=== PATIENT | male | born 1945 | race Caucasian/White ===

== ENCOUNTER 2018-01-11 11:42 | Emergency (ER) | payer OTHER, MEDICARE ==
--- OUTSIDE RECORDS SUMMARY | 2018-01-11 11:44 | XMS REPORT | Clinical Summary ---
:1945 Author Organization [facility] Address [address] [place] [address] Care Team Providers Name Role Phone Asked, No Pcp Primary Care Provider Unavailable Allergies No Known Allergies Current Medications Prescription Sig. Disp. Refills Start Date End Date Status ferrous sulfate Take 325 mg by Active 325 (65 FE) MG mouth daily as tablet needed. testosterone Inject into Active cypionate the shoulder, (DEPOTESTOTERONE thigh, or CYPIONATE) 200 buttocks 2 mg/mL injection (two) times a week. ezetimibe-simvasta Take 1 tablet 30 tablet 11 09/11/2016 Active tin (VYTORIN) by mouth 10-40 mg per nightly. tablet fenofibrate Take 1 tablet 30 tablet 09/11/2016 Active (TRICOR) 145 MG (145 mg total) tablet by mouth daily. insulin detemir Inject 30 10 mL 3 09/11/2016 Active (LEVEMIR) 100 Units under unit/mL injection the skin every morning. metoprolol Take 0.5 30 tablet 09/11/2016 Active tartrate tablets (50 mg (LOPRESSOR) 100 mg total) by tablet mouth 2 (two) times a day. omeprazole Take 1 capsule 30 capsule 11 09/11/2016 Active (PriLOSEC) 40 MG (40 mg total) capsule by mouth daily. lisinopril Take 1 tablet 30 tablet 11 02/18/2017 02/18/2018 Active (PRINIVIL,ZESTRIL) (20 mg total) 20 mg tablet by mouth daily. insulin ASPART Inject 11 10 mL 3 02/18/2017 Active (NovoLOG) 100 Units under unit/mL injection the skin 3 (three) times a day before meals. lisinopril-hydroch Take 1 tablet 30 tablet 11 09/11/2016 02/18/2017 Discontinued lorothiazide by mouth (PRINZIDE,ZESTORET daily. IC) 20-12.5 mg per tablet amLODIPine Take 1 tablet 30 tablet 11 09/11/2016 09/11/2017 (NORVASC) 10 mg (10 mg total) tablet by mouth daily. insulin ASPART Inject 13 10 mL 3 09/11/2016 02/18/2017 Discontinued (NovoLOG) 100 Units under unit/mL injection the skin 3 (three) times a day before meals. aspirin 81 mg Chew 1 tablet 30 tablet 11 09/11/2016 09/11/2017 chewable tablet (81 mg total) daily. Active Problems Problem Noted Date Iron deficiency anemia secondary to inadequate dietary iron intake 09/25/2016 Hospital discharge follow-up 09/11/2016 Altered mental status, unspecified 09/04/2016 Acute alcoholic hepatitis 09/04/2016 Hyperkalemia 09/04/2016 Lactic acidosis 09/04/2016 Alcohol abuse 09/04/2016 Acute renal failure (HCC) 09/04/2016 Type 2 diabetes mellitus with complication, with long-term current use of 06/2016 insulin (HCC) Nausea and vomiting 09/04/2016 Normocytic anemia 09/04/2016 Encounters Date Type Specialty Care Team Description 02/18/2017 Office Visit Internal Medicine Antonia Solis, Low blood pressure, not hypotension (Primary Dx); Type 2 diabetes mellitus without complication, 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 status; Stage 3 chronic kidney disease after 01/10/2017 Family History Medical History Relation Name Comments Heart disease Father Heart disease Mother Relation Name Status Comments Father Mother Social History Tobacco Use Types Packs/Day Years Used Date Current Some Day Smoker Cigarettes 1 10 Quit: 09/05/1991 Smokeless Tobacco: Current User Tobacco Cessation: Counseling Given: Yes Alcohol Use Drinks/Week oz/Week Comments Yes 10 Glasses of wine 22.2 Patient binge drinks on the 2 Cans of beer weekend, he states he has lost 25 Shots of liquor count Sex Assigned at Date Recorded Not on file Last Filed Vital Signs Vital Sign Reading Time Taken Blood Pressure 110/43 02/18/2017 3:22 PM MEDICAL STAFF COORDINATOR Pulse 70 02/18/2017 3:22 PM MEDICAL STAFF COORDINATOR Temperature 37 C (98.6 F) 02/18/2017 2:37 PM MEDICAL STAFF COORDINATOR Respiratory Rate 18 02/18/2017 2:37 PM MEDICAL STAFF COORDINATOR Oxygen Saturation 100% 02/18/2017 2:37 PM MEDICAL STAFF COORDINATOR Inhaled Oxygen Concentration - - Weight 81.6 kg (180 lb) 02/18/2017 2:37 PM MEDICAL STAFF COORDINATOR Height 205.7 cm (6' 9") 02/18/2017 2:37 PM MEDICAL STAFF COORDINATOR Body Mass Index 19.29 02/18/2017 2:37 PM MEDICAL STAFF COORDINATOR Plan of Treatment Health Maintenance Due Date Last Done Comments DIABETIC RETINAL EYE EXAM 1945 DIABETIC FOOT EXAM 1953 COLON CANCER SCREENING 1993 SHINGRIX VACCINE (#1) 1993 ZOSTER VACCINE 2003 PNEUMOCOCCAL POLYSACCHARIDE VACCINE AGE 65 AND OVER 2008 PNEUMOCOCCAL-13 2008 INFLUENZA VACCINE 10/02/2017 Procedures Procedure Name Priority Date/Time Associated Diagnosis Comments POC GLUCOSE Routine 02/18/2017 4:40 Type 2 diabetes Results for this PM MEDICAL STAFF COORDINATOR mellitus without procedure are in complication, the results unspecified long section. term insulin use status ORTHOSTATIC VITAL Routine 02/18/2017 3:25 Low blood pressure, Results for this SIGNS PM MEDICAL STAFF COORDINATOR not hypotension procedure are in the results section. HEMOGLOBIN A1C Routine 02/13/2017 10:00 Diabetes mellitus Results for this AM MEDICAL STAFF COORDINATOR due to underlying procedure are in condition with the results complication, with section. long-term current use of insulin Essential hypertension COMPREHENSIVE Routine 02/13/2017 10:00 Essential Results for this METABOLIC PANEL AM MEDICAL STAFF COORDINATOR hypertension procedure are in the results section. CBC WITH PLATELET AND Routine 02/13/2017 10:00 Essential Results for this DIFFERENTIAL AM MEDICAL STAFF COORDINATOR hypertension procedure are in the results section. after 01/10/2017 Results POC glucose (02/18/2017 4:40 PM) POC glucose 96Comment: . 65 - 100 Specimen Blood Orthostatic vital signs (02/18/2017 3:25 PM)CBC with platelet and differential (02/13/2017 10:00 AM) WBC 5.2 3.8 - 10.8 Thousand/uL [facility] [place] RBC 4.85 4.20 - 5.80 Million/uL [facility] [place] HGB 14.4 13.2 - 17.1 g/dL [facility] [place] HCT 43.1 38.5 - 50.0 % [facility] [place] MCV 88.9 80.0 - 100.0 fL [facility] [place] MCH 29.7 27.0 - 33.0 pg [facility] [place] MCHC 33.4 32.0 - 36.0 g/dL [facility] [place] RDW 13.1 11.0 - 15.0 % [facility] [place] Platelet count 172 140 - 400 Thousand/uL [facility] [place] MPV 11.3 7.5 - 12.5 fL [facility] [place] Neutrophils, absolute 3,406 1,500 - 7,800 cells/uL [facility] [place] Lymphocytes, absolute 993 850 - 3,900 cells/uL [facility] [place] Monocytes, absolute 484 200 - 950 cells/uL [facility] [place] Eosinophils, absolute 239 15 - 500 cells/uL [facility] [place] Basophils, absolute 78 0 - 200 cells/uL [facility] [place] Neutrophils 65.5 % [facility] [place] Lymphocytes 19.1 % [facility] [place] Monocytes 9.3 % [facility] [place] Eosinophils 4.6 % [facility] [place] Basophils + RC 1.5 % [facility] [place] Specimen Blood Narrative Performed At FASTING:YES [facility] FASTING: YES Other Results Text Performing Organization Information: Site ID: [id number] Name: [facility] Address: [address] [place] [id number] Director: Daniella Ortega MD Performing Organization Address [facility] [place] [facility] [address] [address] Hemoglobin A1c (02/13/2017 10:00 AM) Hemoglobin A1C 7.3 (H) <5.7 % of total [facility] Comment: Hgb [place] For someone without known diabetes, a hemoglobin A1c value of 6.5% or greater indicates that they may have diabetes and this should be confirmed with a follow-up test. For someone with known diabetes, a value <7% indicates that their diabetes is well controlled and a value greater than or equal to 7% indicates suboptimal control. A1c targets should be individualized based on duration of diabetes, age, comorbid conditions, and other considerations. Currently, no consensus exists regarding use of hemoglobin A1c for diagnosis of diabetes for children. Specimen Blood Narrative Performed At FASTING:YES [facility] FASTING: YES Other Results Text Performing Organization Information: Site ID: [id number] Name: [facility] Address: [address] [place] [id number] Director: Daniella Ortega MD Performing Organization Address [place] [place] Phone [place] [facility] [place] [address] [place] [address] Comprehensive metabolic panel (02/13/2017 10:00 AM) Glucose 76 65 - 99 mg/dL [facility] Comment: [place] Fasting reference interval BUN, whole blood 27 (H) 7 - 25 mg/dL [facility] [place] Creatinine 1.75 (H) 0.70 - 1.18 [facility] Comment: mg/dL [place] For patients >49 years of age, the reference limit for Creatinine is approximately 13% higher for people identified as -Moz[place]ican. EGFR Non-Afr. [place]ican 38 (L) > OR=60 [facility] mL/min/1.73m2 [place] EGFR 44 (L) > OR=60 [facility] mL/min/1.73m2 [place] BUN/creatinine ratio 15 6 - 22 (calc) [facility] [place] Sodium 135 135 - 146 mmol/L [facility] [place] Potassium 4.3 3.5 - 5.3 mmol/L [facility] [place] Chloride 99 98 - 110 mmol/L [facility] [place] CO2 29 20 - 31 mmol/L [facility] [place] Calcium 9.5 8.6 - 10.3 mg/dL [facility] [place] Protein 6.8 6.1 - 8.1 g/dL [facility] [place] Albumin, S 4.1 3.6 - 5.1 g/dL [facility] [place] Globulin, total 2.7 1.9 - 3.7 g/dL [facility] (calc) [place] Albumin/globulin ratio 1.5 1.0 - 2.5 (calc) [facility] [place] Total bilirubin 0.8 0.2 - 1.2 mg/dL [facility] [place] Alkaline phosphatase 99 40 - 115 U/L [facility] [place] AST 41 (H) 10 - 35 U/L [facility] [place] ALT 40 9 - 46 U/L [facility] [place] Specimen Blood Narrative Performed At FASTING:YES [facility] FASTING: YES Other Results Text Performing Organization Information: Site ID: [id number] Name: [facility] Address: [address] [place] [address] Director: Daniella Ortega MD Performing Organization Address City/State/Zipcode Phone Number [facility] [place] [address] [place] [address] after 01/10/2017 Insurance Payer Benefit Plan / Group Subscriber ID Type Phone Address MEDICARE MEDICARE PART A AND B xxxxxxxxxx Medicare [place], [place] AAR AARP SUPPLEMENT xxxxxxxxx Commercial Home: [address] [place], [place] [phone] [address]
--- OUTSIDE RECORDS SUMMARY | 2018-01-11 11:44 | XMS REPORT ---
:1945 [facility] Address [address] [place] [address] Care Team Providers Name Role Phone Unavailable Unavailable Unavailable Payers Payer Name Policy Type Policy Number Effective Date Expiration Date Problems This patient has no known problems. Allergies, Adverse Reactions, Alerts Allergy Allergy Status Severity Reaction(s) Onset Inactive Treating Comments Name Type Date Date Clinician No Known DA Active U 2017-12 Allergies -16 00:00:0 0 No Known DA Active U 2017-12 Allergies -15 00:00:0 0 No Known DA Active U 2017-10 Allergies - 00:00:0 0 Medications This patient has no known medications.
--- NOTE | 2018-01-11 12:35 | RAD REPORT ---
EXAM DESCRIPTION: CTSpine Lumbar Wo Con01/11/2018 12:10 pm CLINICAL HISTORY: Back injury with back pain and radiculopathy status post fall COMPARISON: None TECHNIQUE: Computed axial tomography lumbar spine was obtained with coronal and sagittal reconstruct ion. All CT scans are performed using dose optimization technique as appropriate and may include automated exposure control or mA/KV adjustment according to patient size. FINDINGS: No fracture is seen. No dislocation is noted. Mild posterior subluxation L2 on L3 A large left paracentral disc herniation suspected L3-4. Disc herniation extends superiorly. This in combination with ligamentum flavum and facet hypertrophy result in marked central spinal stenosis Small left lateral disc herniation L4-5 suspected IMPRESSION: Negative for a lumbar fracture. Large left paracentral disc herniation L3-4. Further evaluation with MRI recommended
[2018-01-11] MEDS ORDERED: FENTANYL CITR 100 MCG/2 ML ONE (12:53)
[2018-01-11] MEDS ORDERED: MORPHINE 4 MG/ML SYR ONE (14:06)
--- NOTE | 2018-01-11 15:16 | RAD REPORT ---
EXAM DESCRIPTION: CT - C Spine Wo Con - 01/11/2018 2:51 pm CLINICAL HISTORY: Fall yesterday with neck pain COMPARISON: None. TECHNIQUE: Computed axial tomography of the cervical spine were obtained with sagittal and coronal r econstruction images generated and reviewed. All CT scans are performed using dose optimization technique as appropriate and may include automated exposure control or mA/KV adjustment according to patient size. FINDINGS: A cervical fracture is not seen. No dislocation is noted. Mild to moderate spondylosis spondylosis involves the cervical spine Atherosclerotic calcifications involve the carotid arteries IMPRESSION: A cervical fracture is not seen. If the patient continues have symptoms to suggest spinal cord/spinal canal pathology then MRI would b e recommended.
--- NOTE | 2018-01-11 15:34 | EDPHYS ---
Physician Documentation [facility] Name: Tacho Lundy Age: 72 yrs Sex: Male : 1945 Arrival Date: 01/11/2018 Time: 11:48 Bed 14 Private MD: ED Physician Jose Ramon Alejandro HPI: 01/11 15:25 This 72 yrs old Male presents to ER via EMS with complaints of Low Back Pain, gs Fall Injury. 15:25 The patient presents with pain that is chronic. The symptoms are located in the low gs back. The problem was sustained chronic pain, spinal stenosis, fell backwards from walker states increase LBP.. Onset: The symptoms/episode began/occurred acutely, yesterday. Modifying factors: The patient symptoms are alleviated by nothing, the patient symptoms are aggravated by movement. Associated signs and symptoms: Pertinent negatives: abdominal pain, constipation, incontinence, numbness, tingling, urinary retention. Severity of symptoms: At their worst the symptoms were moderate, severe, in the emergency department the symptoms are unchanged. The patient has experienced similar episodes in the past, a few times. Historical: - Allergies: : No Known Allergies; aj - Home Meds: : Viagra Oral for High Blood Pressure [Active]; Metformin Oral [Active]; Glimepiride Oral aj [Active]; - PMHx: :57 Hypertension; Chronic pain; Diabetes - NIDDM; aj - Immunization history: Last tetanus immunization: unknown. - Social history:: Smoking status: Patient/guardian denies using tobacco. - Ebola Screening: : Patient negative for fever greater than or equal to 101.5 degrees Fahrenheit, and additional compatible Ebola Virus Disease symptoms Patient denies exposure to infectious person Patient denies travel to an Ebola-affected area in the 21 days before illness onset No symptoms or risks identified at this time. ROS: 15:25 All other systems are negative. gs Exam: 15:25 Head/Face: Normocephalic, atraumatic. Eyes: Pupils equal round and reactive to light, gs extra-ocular motions intact. Lids and lashes normal. Conjunctiva and sclera are non-icteric and not injected. Cornea within normal limits. Periorbital areas with no swelling, redness, or edema. ENT: Nares patent. No nasal discharge, no septal abnormalities noted. Tympanic membranes are normal and external auditory canals are clear. Oropharynx with no redness, swelling, or masses, exudates, or evidence of obstruction, uvula midline. Mucous membranes moist. Neck: Trachea midline, no thyromegaly or masses palpated, and no cervical lymphadenopathy. Supple, full range of motion without nuchal rigidity, or vertebral point tenderness. No Meningismus. Chest/axilla: Normal chest wall appearance and motion. Nontender with no deformity. No lesions are appreciated. Cardiovascular: Regular rate and rhythm with a normal S1 and S2. No gallops, murmurs, or rubs. Normal PMI, no JVD. No pulse deficits. Respiratory: Lungs have equal breath sounds bilaterally, clear to auscultation and percussion. No rales, rhonchi or wheezes noted. No increased work of breathing, no retractions or nasal flaring. Abdomen/GI: Soft, non-tender, with normal bowel sounds. No distension or tympany. No guarding or rebound. No evidence of tenderness throughout. 15:25 Skin: Warm, dry with normal turgor. Normal color with no rashes, no lesions, and no evidence of cellulitis. MS/ Extremity: Pulses equal, no cyanosis. Neurovascular intact. Full, normal range of motion. 15:25 Constitutional: The patient appears alert, awake. 15:25 Constitutional: The patient appears uncomfortable. 15:25 Back: vertebral tenderness, is appreciated at L3 and L4. 15:25 Neuro: Cranial nerves: grossly normal, Cerebellar function: is grossly normal, Motor: moves all fours, strength is 5/5 in all extremities, Sensation: no acute changes, pin prick testing is normal, Deep tendon reflexes are 0 (absent) in the right patellar, right Achilles, left patellar and left Achilles. Vital Signs: 11:52 BP 185 / 97; Pulse 111; Resp 22; Temp 98.6; Pulse Ox 95% on R/A; Weight 81.65 kg; aj Height 5 ft. 9 in. (175.26 cm); 12:30 BP 146 / 75; Pulse 113; Resp 20; Pulse Ox 99% on R/A; aj 14:04 BP 141 / 65; Pulse 110; Resp 21; Pulse Ox 93% on R/A; aj 15:26 BP 144 / 78; Pulse 101; Resp 20; Pulse Ox 96% on R/A; aj 16:37 BP 155 / 73; Pulse 106; Resp 18; Pulse Ox 93% on R/A; aj 11:52 Body Mass Index 26.58 (81.65 kg, 175.26 cm) aj Jack Coma Score: 11:52 Eye Response: spontaneous(4). Verbal Response: oriented(5). Motor Response: obeys aj commands(6). Total: 15. Trauma Score (Adult): 11:52 Eye Response: spontaneous(1); Verbal Response: oriented(1); Motor Response: obeys aj commands(2); Systolic BP: > 89 mm Hg(4); Respiratory Rate: 10 to 29 per min(4); Jack Score: 15; Trauma Score: 12 MDM: 12:00 Patient medically screened. 15:25 Differential diagnosis: fracture, Herniated disc annular tear, chronic pain. Data gs reviewed: vital signs, nurses notes. ED course: spoke with pt dr suggests transfer to [facility] if pain persists and cant ambulate. presented recc to pt. states doesn't want to be transferred. says will go home see pcp saturday.. 01/11 15:47 Order name: CBC with Diff; Complete Time: 16:40 01/11 15:47 Order name: Basic Metabolic Panel; Complete Time: 16:46 01/11 12:00 Order name: CT Lumbar Spine Wo Con; Complete Time: 12:59 01/11 14:19 Order name: CT C Spine; Complete Time: 15:16 gs Administered Medications: 12:53 Drug: fentaNYL (PF) 50 mcg Route: IVP; Site: right forearm; aj 15:59 Follow up: Response: Pain is unchanged, physician notified aj 14:01 Drug: morphine 4 mg Route: IVP; Site: left antecubital; aj 16:00 Follow up: Response: Pain is decreased aj 15:59 Drug: Quincy 10 mg-325 mg 1 tabs Route: PO; aj 16:00 Follow up: Response: Pain is decreased aj 16:53 Drug: NS 0.9% 1000 ml Route: IV; Rate: 1 bolus; Site: left forearm; aj 18:12 Follow up: Response: No adverse reaction; IV Status: Completed infusion; IV Intake: aj 1000ml 16:54 Drug: TORadol 15 mg Route: IVP; Site: left forearm; aj 18:12 Follow up: Response: Pain is decreased Point of Care Testing: Blood Glucose: 14:29 Blood Glucose: 175 mg/dL; aj Ranges: Critical Glucose Levels:Adult <50 mg/dl or >400 mg/dl <40 mg/dl or >180 mg/dl Disposition: 01/11/18 17:31 Discharged to Home. Impression: Intervertebral disc disorders with radiculopathy, lumbar region. - Condition is Stable. - Discharge Instructions: Herniated Disk, Dehydration, Adult, [id number]. - Medication Reconciliation Form, Thank You Letter, Antibiotic Education, Prescription Opioid Use form. - Follow up: Private Physician; When: 2 - 3 days; Reason: Re-evaluation by your physician. Signatures: Dispatcher [employer] Yi Porter RN RN aj Starr, Gregory, MD MD gs Corrections: (The following items were deleted from the chart) 15:51 15:33 01/11/2018 15:33 Discharged to Home. Impression: Intervertebral disc disorders with radiculopathy, lumbar region. Condition is Stable. Forms are Medication Reconciliation Form, Thank You Letter, Antibiotic Education, Prescription Opioid Use. Follow up: Private Physician; When: 2 - 3 days; Reason: Re-evaluation by your physician. 18:13 17:31 01/11/2018 17:31 Discharged to Home. Impression: Intervertebral disc disorders with radiculopathy, lumbar region. Condition is Stable. Prescriptions for Valium 5 mg Oral Tablet - take 1 tablet by ORAL route every 12 hours As needed; 10 tablet. and Forms are Medication Reconciliation Form, Thank You Letter, Antibiotic Education, Prescription Opioid Use. Follow up: Private Physician; When: 2 - 3 days; Reason: Re-evaluation by your physician.
--- NOTE | 2018-01-11 15:34 | ER ---
Nurse's Notes [facility] Name: Tacho Lundy Age: 72 yrs Sex: Male : 1945 Arrival Date: 01/11/2018 Time: 11:48 Bed 14 Private MD: Diagnosis: Intervertebral disc disorders with radiculopathy, lumbar region Presentation: 01/11 11:49 Presenting complaint: Patient states: Fell from standing position yesterday at 1700 aj after tripping while using walker. Reports severe pain to lower back that was partly relieved with Tylenol #3 last night, but was not completely controlled. Denies numbness or tingling. CMS intact to BLE. Patient reports HX of chronic back pain. Care prior to arrival: IV initiated. 22 GA, in the left antecubital area. Mechanism of Injury: Fall from standing position. Trauma event details: Injury occurred in the [facility], Injury occurred: at home. Injury occurred: January 10, 2018 Injury occurred at: 17:00. 11:49 Acuity: CORRY 2 aj 11:49 Method Of Arrival: EMS: [facility] aj 11:55 Transition of care: patient was not received from another setting of care. Onset of aj symptoms was January 10, 2018 at 17:00. Risk Assessment: Do you want to hurt yourself or someone else? Patient reports no desire to harm self or others. Initial Sepsis Screen: Does the patient meet any 2 criteria? No. Patient's initial sepsis screen is negative. Does the patient have a suspected source of infection? No. Patient's initial sepsis screen is negative. Trauma Activation: Alert Physician: ED Physician; Name: ; Notified At: ; Arrived At: Physician: General Surgeon; Name: ; Notified At: ; Arrived At: Physician: Radiology; Name: ; Notified At: ; Arrived At: Physician: Respiratory; Name: ; Notified At: ; Arrived At: Physician: Lab; Name: ; Notified At: ; Arrived At: Historical: - Allergies: : No Known Allergies; aj - Home Meds: : Viagra Oral for High Blood Pressure [Active]; Metformin Oral [Active]; Glimepiride Oral aj [Active]; - PMHx: 11:57 Hypertension; Chronic pain; Diabetes - NIDDM; aj - Immunization history: Last tetanus immunization: unknown. - Social history:: Smoking status: Patient/guardian denies using tobacco. - Ebola Screening: : Patient negative for fever greater than or equal to 101.5 degrees Fahrenheit, and additional compatible Ebola Virus Disease symptoms Patient denies exposure to infectious person Patient denies travel to an Ebola-affected area in the 21 days before illness onset No symptoms or risks identified at this time. Screenin:52 Abuse screen: Denies threats or abuse. Denies injuries from another. Tuberculosis aj screening: No symptoms or risk factors identified. 18:10 Nutritional screening: No deficits noted. Fall Risk Gait- Weak (10 pts.). aj Primary Survey: 11:52 A: Airway: patent. Breathing/Chest: Respiratory pattern: regular, Respiratory effort: aj spontaneous, unlabored, Breath sounds: clear, bilaterally. Chest inspection: symmetrical rise and fall of the chest. Circulation: Skin color: pink. Disability Alert. 12:47 Reassessment Airway Airway Patent Breathing/Chest Respiratory pattern Regular aj Respiratory effort Spontaneous Unlabored Circulation Color White Stone Temperature Warm Diaphoretic Disability Alert. Assessment: 11:52 General: Appears in no apparent distress. uncomfortable, Behavior is cooperative, aj appropriate for age. Pain: Complains of pain in lumbar area and low back area Pain currently is 9 out of 10 on a pain scale. Neuro: Level of Consciousness is awake, alert, obeys commands, Oriented to person, place, time, situation, Appropriate for age Moves all extremities. Intact. Respiratory: Airway is patent Respiratory effort is even, unlabored. Derm: Skin is intact, is healthy with good turgor, Skin is pink, warm \\T\\ dry. normal. Musculoskeletal: Reports pain in lumbar area and low back area. 14:02 Reassessment: No changes from previously documented assessment. Patient and/or family aj updated on plan of care and expected duration. Pain level reassessed. Patient is alert, oriented x 3, equal unlabored respirations, skin warm/dry/pink. Attempted to ambulate patient per Dr Alejandro's order. Patient able to stand and bear weight but was in excruciating pain. Requested ice chips for dry mouth and pain medication. 15:26 Reassessment: Patient appears in no apparent distress at this time. Patient and/or aj family updated on plan of care and expected duration. Pain level reassessed. Patient is alert, oriented x 3, equal unlabored respirations, skin warm/dry/pink. Patient reported to Dr Alejandro that he would like to go home but would like [place] Patient states feeling better. Patient states symptoms have improved. 16:36 Reassessment: Patient appears in no apparent distress at this time. Patient and/or aj family updated on plan of care and expected duration. Pain level reassessed. Patient is alert, oriented x 3, equal unlabored respirations, skin warm/dry/pink. Patient states that he wants to be discharged and will refuse transfer. Patient states "I'll even sign a piece of paper if I need to." Patient states feeling better. Patient states symptoms have improved. 18:09 Reassessment: Patient appears in no apparent distress at this time. Patient and/or aj family updated on plan of care and expected duration. Pain level reassessed. Patient is alert, oriented x 3, equal unlabored respirations, skin warm/dry/pink. Patient reports significant improvement after toradol. Able to stand and pivot into chair with less pain. Patient states feeling better. Patient states symptoms have improved. Vital Signs: 11:52 BP 185 / 97; Pulse 111; Resp 22; Temp 98.6; Pulse Ox 95% on R/A; Weight 81.65 kg; aj Height 5 ft. 9 in. (175.26 cm); 12:30 BP 146 / 75; Pulse 113; Resp 20; Pulse Ox 99% on R/A; aj 14:04 BP 141 / 65; Pulse 110; Resp 21; Pulse Ox 93% on R/A; aj 15:26 BP 144 / 78; Pulse 101; Resp 20; Pulse Ox 96% on R/A; aj 16:37 BP 155 / 73; Pulse 106; Resp 18; Pulse Ox 93% on R/A; aj 11:52 Body Mass Index 26.58 (81.65 kg, 175.26 cm) aj Creighton Coma Score: 11:52 Eye Response: spontaneous(4). Verbal Response: oriented(5). Motor Response: obeys aj commands(6). Total: 15. Trauma Score (Adult): 11:52 Eye Response: spontaneous(1); Verbal Response: oriented(1); Motor Response: obeys aj commands(2); Systolic BP: > 89 mm Hg(4); Respiratory Rate: 10 to 29 per min(4); Jack Score: 15; Trauma Score: 12 ED Course: 11:48 Patient arrived in ED. aj 11:48 Jose Ramon Alejandro MD is Attending Physician. gs 11:52 Triage completed. aj 11:52 Patient has correct armband on for positive identification. aj 11:52 Patient maintains SpO2 saturation greater than 95% on room air. aj 11:55 Thermoregulation: warm blanket given to patient. aj 11:57 Arm band placed on left wrist. Patient placed in an exam room. aj 12:07 CT completed. Patient moved to CT via stretcher. Patient moved back from CT. cw1 12:11 CT Lumbar Spine Wo Con In Process Unspecified. EDMS 12:37 Yi Locke, RN is Primary Nurse. aj 14:[address] via stretcher. cw1 14:49 CT completed. Patient moved back from CT. cw1 14:51 CT C Spine In Process Unspecified. EDMS 16:00 Lab notified patient requested butterfly stick unable to obtain blood from IV. flushes aj well. 18:10 No provider procedures requiring assistance completed. IV discontinued, intact, aj bleeding controlled, No redness/swelling at site. Pressure dressing applied. Administered Medications: 12:53 Drug: fentaNYL (PF) 50 mcg Route: IVP; Site: right forearm; aj 15:59 Follow up: Response: Pain is unchanged, physician notified aj 14:01 Drug: morphine 4 mg Route: IVP; Site: left antecubital; aj 16:00 Follow up: Response: Pain is decreased aj 15:59 Drug: [place] 10 mg-325 mg 1 tabs Route: PO; aj 16:00 Follow up: Response: Pain is decreased aj 16:53 Drug: NS 0.9% 1000 ml Route: IV; Rate: 1 bolus; Site: left forearm; aj 18:12 Follow up: Response: No adverse reaction; IV Status: Completed infusion; IV Intake: aj 1000ml 16:54 Drug: TORadol 15 mg Route: IVP; Site: left forearm; aj 18:12 Follow up: Response: Pain is decreased aj Point of Care Testing: Blood Glucose: 14:29 Blood Glucose: 175 mg/dL; aj Ranges: Intake: 18:11 PO: 300ml (Water); Total: 300ml. aj 18:12 IV: 1000ml; Total: 1300ml. aj Output: 14:00 Urine: 250ml (Voided); Total: 250ml. aj Outcome: 15:33 Discharge ordered by . gs 17:31 Discharge ordered by . gs 18:10 Discharged to home via wheelchair. aj 18:10 Condition: good 18:10 Discharge instructions given to patient, Instructed on discharge instructions, follow up and referral plans. Demonstrated understanding of instructions, follow-up care. 18:11 uncontrolled painPatient's length of stay extended due to aj 18:13 Patient left the ED. aj Signatures: Dispatcher [employer] Yi Porter RN RN aj Woodley, Crystal cw1 Jose Ramon Alejandro MD MD gs
[2018-01-11] MEDS ORDERED: HYDROCODONE/APAP 10/325 TAB ONE (15:49)
[2018-01-11] MEDS ORDERED: KETOROLAC 30 MG/ML INJ ONE (15:49)
[2018-01-11 16:28] LABS: Absolute Lymphocytes (CBC) 0.5 K/uL (0.7-4.9); Absolute Monocytes 0.8 K/uL (0.1-1.3); Absolute Neutrophil 13.1 K/uL (1.8-8.0); Basophils % 0.2 % (0-1.3); Eosinophils % 0.4 % (0-4.4); Hematocrit 37.4 % (39.6-49.0); Lymphocytes % 3.6 % (15.3-44.8); MCH 24.2 pg (27.0-35.0); MCV 75.9 fL (80-100); Monocytes % 5.7 % (3.3-12.3); RBC Red Blood Cell Count 4.93 M/uL (4.33-5.43)
[2018-01-11 16:41] LABS: Potassium 4.8 mmol/L (3.5-5.1)
[2018-01-11] MEDS ORDERED: NA CHLORIDE 0.9% 1,000 ML ONE (16:55)
[2018-01-11 18:43] VITALS: TEMP 98.6
[2018-01-11 18:47] VITALS: BP 155/73; O2SAT 93
== END 2018-01-11 18:13 | disposition home or self-care (01) ==
LOC: ER 11:42
DX: M51.16 Intervertebral disc disorders with radiculopathy, lumbar region (principal); I10 Essential (primary) hypertension; E11.9 Type 2 diabetes mellitus without complications
CPT/HCPCS: 36415; 72125; 72131; 80048; 85025; 99285; J3010; J7030; 82962

== ENCOUNTER 2018-02-05 10:04 | Inpatient (IN) | payer OTHER, MEDICARE ==
--- NOTE | 2018-02-05 13:53 | R.PREADM ---
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 ACUTE SENIOR SUSTAINABILITY CONSULTANT/DC BETO Platt [phone] REFERRING PHYSICIAN Samaria Olmstead REHAB FACILITY [facility] CLINICAL LIAISON Derick Chisholm PHYSICIAN REVIEWER Dr. Charles Sauceda M.D. MR# [id number] [id number] NAME [place] AD[address] [facility] [address]ONE [facility] [id number] DATE OF 1945 AGE 72 SSN# [id number] GENDER male MARITAL STATUS RACE white ADMIT FROM 02 - [facility] PRE-HOSPITAL LIVING SETTING 01 - Home (private home/apt. board/care, assisted living, halfway, transitional living) HOME TYPE AND DETAILS Type of home: single family house # of steps to enter the residence: 0 # of steps within the residence: 0 # of levels in the residence: 1 PRE-HOSPITAL LIVING WITH Family/Relatives FAMILY SUPPORT Yes PRIMARY FAMILY CONTACT NAME Laura Winston PRIMARY FAMILY CONTACT PHONE PHONE PRIMARY FAMILY CONTACT ON ADM.? no IS PRIMARY FAMILY CONTACT AUTH. REP.? no 1ST EMERGENCY CONTACT Laura Winston 1ST CONTACT PHONE PHONE 1ST CONTACT ON ADM. no IS 1ST CONTACT AUTH. REP.? no 2ND EMERGENCY CONTACT Suzie Kenzie 2ND CONTACT PHONE PHONE 2ND CONTACT ON ADM.? no PATIENT EMPLOYMENT STATUS Retired (for age) PATIENT EMPLOYER No Employer PAYOR INFORMATION: 1ST PAYOR NAME Medicare 1ST PAYOR PHONE 1ST PAYOR INJURY/ILLNESS DUE TO ACCIDENT? No ANOTHER [employer] RESPONSIBLE? No PRIMARY REHAB/ACUTE DIAGNOSIS: herniated nucleus pulposus ONSET DATE 01-20-2018 REHAB IMPAIRMENT CATEGORY (RADHA): 05 Nontraumatic spinal cord injury (NTSCI) MEETS 60% rule PRIMARY DIAGNOSIS-RELATED SURGERIES: Laminectomy of L3-L4 COMORBID REHAB/ACUTE DIAGNOSES: - Non-Tiered hypertension - N/A arthritis ckd stage III CAD s/p stent INTERVENTIONS: - Hypertension Fluid management Medications VS RISK FOR COMPLICATIONS: - Hypertension CVA Hypotension VA TIA SUMMARY OF ACUTE HOSPITALIZATION: Pt. is a 72 yo Right-handed white male. On 01-20-2018 he was admitted to [facility] with diagnosis herniated nucleus pulposus. His impairment category is Spinal Cord Dysfunction 04 - Other Non-traumatic Spinal Cord Dysfunction (04.130). Pre-morbidly, Pt. was independent/mod-I in Transfers Control, Communication, Social Cognition, Self-C are, Sphincter Control, and Locomotion; and he had good Sphincter Control. Currently, he has deficits of Safety Awareness, Transfers Control, Communication, Social Cognition, B alance, Endurance, Locomotion, and Self-Care. Pt. is now referred to [facility] for acute in-patient rehabilitation in order to maximize patient's functional independence in activities of daily living, strength, ROM, and mobi lity. Patient has realistic goal of being discharged at assistance level 6-Leslie to reside at Home with Fam sania/Relatives. PAST MEDICAL HISTORY CAD s/p stent arthritis ckd stage III hypertension MEDICATION ALLERGIES: No Known Drug Allergies (NKDA) ENVIRONMENTAL ALLERGIES: - Substance Allergies None Known - Other Allergies None Known CODE STATUS: Full code WEIGHT/HEIGHT/BMI: WEIGHT 182 lbs HEIGHT 5' 9" BMI 26.9 DIET: - Diet Type Regular - Diet - Solid Texture Regular - Diet - Liquid Texture Regular - Tube Feed N/A SKIN DIAGRAM: Incision on Back; extent - small; stage - NS(Not Stageable). Treatment - Per Physician's Orders. REVIEW OF SYSTEMS: - Gen Alert and awake Lying in bed No apparent distress Oriented to: person, time, and place - Vital Signs Vital signs stable, afebrile - CVS RRR VITAL SIGNS Temperature: 99 F SBP/DBP: 118/56 Pulse: 93 Resp: 18 Vital signs stable, afebrile CURRENT SPHINCTER CONTROL: Pre-hospital bladder status: continent # of bladder accidents in the last 7 days prior to screenin Pre-hospital bowel status: continent # of bowel accidents in the last 7 days prior to screenin Last Bowel Movement Date: 02/05/2018 DETAILED CURRENT FUNCTIONAL STATUS: - Bladder accident frequency: Ind - No accidents in the past 7 days - Bowel accident frequency: Ind - No accidents in the past 7 days - Walking score based on distance walked: 1(<=50ft) FUNCTIONAL STATUS: - Self-Care A. Eating Ind Ind B. Grooming Ind sup C. Bathing Ind Ind D. Dressing - Upper Ind Dep E. Dressing - Lower Ind Dep F. Toileting Ind Dep - Sphincter Control G: Bladder control Ind Ind H: Bowel control Ind Ind - Transfers Control I. Bed/Chair/Wheelchair Ind modA J. Toilet Ind maxA K. Tub/Shower Ind maxA - Locomotion L. Walk/Wheelchair (B) Ind Dep M. Stairs Ind ADNO - Communication N. Comprehension (B) Ind sup O. Expression (B) Ind sup - Social Cognition P. Social Interaction Ind sup Q. Problem Solving Ind sup R. Memory Ind sup - Endurance Poor - Balance Poor - Safety Awareness Poor CURRENT FUNC. DEFICITS: Safety Awareness, Transfers Control, Communication, Social Cognition, Balance, Endurance, Locomotion, and Self-Care THERAPY NOTES FROM ACUTE CARE: Attached. SPECIAL NEEDS: - Safety Concerns Skin breakdown precautions needed due to skin breakdown risk PATIENT NEEDS ACTIVE AND ONGOING THERAPEUTIC INTERVENTION OF MULTIPLE THERAPY DISCIPLINES, INCLUDING: - Orthotics/Prosthetics Orthotic Evaluation. Splinting/Casting. - Occupational Therapy Evaluate and Treat. - Physical Therapy Evaluate and Treat. PATIENT NEEDS CLOSE MEDICAL SUPERVISION BY A REHABILITATION PHYSICIAN FOR: Bowel and Bladder Management Coordination of Treatment Team Medical and Co-Morbidity Management Wound Care PATIENT REQUIRES 24X7 REHAB NURSING FOR MEDICAL AND FUNCTIONAL MGT. OF THE FOLLOWING DEFICITS: ADL's Ambulation Bowel and Bladder Management Cognition Communication Disease Management Medication Management Patient/Family Education Providing Safe Environment Skin Integrity Transfers PATIENT REQUIRES INTENSIVE, COORDINATED INTERDISCIPLINARY APPROACH TO REHAB: Arranging Home Equipment/Services Discharge Planning Family Intervention/Training Cook [employer]/Case Management PATIENT REHAB POTENTIAL: Expected level of measurable improvement will be of a practical value to patient's functional capacit y or adaptations to impairments Has a viable Discharge Plan Medically appropriate; condition is sufficiently stable to participate in intensive rehab program Patient is able and expected to receive 3 hours of individualized therapy daily on at least 5 of ever y 7 days Patient's prognosis for significant practical improvement within a reasonable period of time appears Good DISCHARGE PLAN: - Estimated Length of Stay (days) 16. - Consensus on plan Discharge plan has been discussed with primary caregiver. Patient/Family is in agreement with the pili n. Primary caregiver is in agreement with the plan. - Patient/Family Goals Return home with assistance. - Planned Living Setting Upon Discharge Home, to live with Family/Relatives. RECOMMENDED CARE LEVEL: IRF RECOMMENDATION DETAILS: Recommended Admission to Comprehensive Rehabilitation Program to Increase Functional [place] SCREENER'S COMPLETENESS CONFIRMATION: - Screening Confirmation The patient data collection on this preadmission screening form is finished PHYSICIANS REVIEW AND ADMISSION DETERMINATION Admit - Based on my review of the Pre-Admission Screening results, in my medical judgment and experie nce, I concur with the findings and recommend admission to [facility], as this patient requires an IRF level of care. SIGNATURE PANEL: Clinical Liaison - [electronically] signed by Suzie Rae on 02/05/2018 at 10:53 (FARROWING WORKER) Clinical Liaison - [electronically] signed by Derick Chisholm on 02/05/2018 at 11:19 (FARROWING WORKER) Physician Reviewer - [electronically] signed by Dr. Charles Sauceda M.D. on 02/05/2018 at 13:52 (FARROWING WORKER )
--- OUTSIDE RECORDS SUMMARY | 2018-02-05 19:22 | XMS REPORT | Clinical Summary ---
:1945 Author Organization [facility] Address [address] [place] [address] Care Team Providers Name Role Phone Asked, No Pcp Primary Care Provider Unavailable Allergies No Known Allergies Medications Medication Sig Dispensed Refills Start Date End Date Status gabapentin Take 1 capsule 90 capsule 0 02/05/2018 Active (NEURONTIN) 100 mg (100 mg total) 9 capsule by mouth 3 (three) times a day for 30 days. ezetimibe-simvasta Take 1 tablet by 30 tablet 0 02/05/2018 Active tin (VYTORIN) mouth nightly 9 10-40 mg per for 30 days. tablet tamsulosin Take 1 capsule 30 capsule 0 02/06/2018 Active (FLOMAX) 0.4 mg (0.4 mg total) 9 capsule by mouth daily for 30 days. metoprolol Take 1 tablet 30 tablet 0 02/06/2018 Active succinate XL (25 mg total) by 9 (TOPROL-XL) 25 mg mouth daily for 24 hr tablet 30 days. NIFEdipine XL Take 1 tablet 30 tablet 0 02/06/2018 Active (PROCARDIA XL) 30 (30 mg total) by 9 MG 24 hr tablet mouth daily for 30 days. heparin Inject 1 mL 60 mL 0 02/05/2018 Active sodium,porcine (5,000 Units 9 (HEPARIN, total) under the PORCINE,) 5,000 skin every 12 unit/mL injection (twelve) hours for 30 days. insulin GLARGINE Inject 50 Units 15 mL 0 02/06/2018 Active (LANTUS) 100 under the skin 9 unit/mL injection daily before (vial) breakfast for 30 days. insulin lispro Inject 0-12 10 mL 12 02/05/2018 Active (HumaLOG) 100 Units under the 9 unit/mL injection skin 3 (three) times a day with meals for 30 days. furosemide (LASIX) Take 1 tablet 30 tablet 0 02/06/2018 Active 20 mg tablet (20 mg total) by 9 mouth daily for 30 days. magnesium oxide Take 1 tablet 60 tablet 0 02/05/2018 Active (MAG-OX) 400 mg (400 mg total) 9 (241.3 mg by mouth 2 (two) magnesium) tablet times a day for 30 days. aspirin (ECOTRIN) Take 1 tablet 30 tablet 0 02/05/2018 Active 81 MG enteric (81 mg total) by 9 coated tablet mouth daily for 30 days. pantoprazole Take 1 tablet 30 tablet 0 02/06/2018 Active (PROTONIX) 40 MG (40 mg total) by 9 EC tablet mouth daily for 30 days. ferrous sulfate Take 325 mg by 0 Discontinued 325 (65 FE) MG mouth daily as 8 tablet needed. testosterone Inject into the 0 Discontinued cypionate shoulder, thigh, 8 (DEPOTESTOTERONE or buttocks 2 CYPIONATE) 200 (two) times a mg/mL injection week. lisinopril-hydroch Take 1 tablet by 30 tablet 11 09/11/2016 Discontinued lorothiazide mouth daily. 7 (PRINZIDE,ZESTORET IC) 20-12.5 mg per tablet amLODIPine Take 1 tablet 30 tablet 09/11/2016 (NORVASC) 10 mg (10 mg total) by 8 tablet mouth daily. ezetimibe-simvasta Take 1 tablet by 30 tablet 11 09/11/2016 Discontinued tin (VYTORIN) mouth nightly. 8 10-40 mg per tablet fenofibrate Take 1 tablet 30 tablet 11 09/11/2016 Discontinued (TRICOR) 145 MG (145 mg total) 8 tablet by mouth daily. insulin detemir Inject 30 Units 10 mL 3 09/11/2016 Discontinued (LEVEMIR) 100 under the skin 8 unit/mL injection every morning. insulin ASPART Inject 13 Units 10 mL 3 09/11/2016 Discontinued (NovoLOG) 100 under the skin 3 7 unit/mL injection (three) times a day before meals. metoprolol Take 0.5 tablets 30 tablet 11 09/11/2016 Discontinued tartrate (50 mg total) by 8 (LOPRESSOR) 100 mg mouth 2 (two) tablet times a day. omeprazole Take 1 capsule 30 capsule 11 09/11/2016 Discontinued (PriLOSEC) 40 MG (40 mg total) by 8 capsule mouth daily. aspirin 81 mg Chew 1 tablet 30 tablet 11 09/11/2016 chewable tablet (81 mg total) 8 daily. lisinopril Take 1 tablet 30 tablet 11 02/18/2017 Discontinued (PRINIVIL,ZESTRIL) (20 mg total) by 8 20 mg tablet mouth daily. insulin ASPART Inject 11 Units 10 mL 3 02/18/2017 Discontinued (NovoLOG) 100 under the skin 3 8 unit/mL injection (three) times a day before meals. acetaminophen-code TK 1 T PO BID 0 01/10/2018 Discontinued ine (TYLENOL WITH PRF PAIN 8 CODEINE #3) 300-30 mg per tablet gabapentin Take 300 mg by 0 01/08/2018 Discontinued (NEURONTIN) 300 mg mouth 3 (three) 8 capsule times a day. traMADol (ULTRAM) Take 1 tablet by 0 01/10/2018 Discontinued 50 mg tablet mouth 3 (three) 8 times a day as needed. acetaminophen-code Take 1 tablet by 0 Discontinued ine (TYLENOL WITH mouth 2 (two) 8 CODEINE #4) 300-60 times a day as mg per tablet needed for moderate pain. ezetimibe-simvasta Take 1 tablet by 0 Discontinued tin (VYTORIN) mouth nightly. 8 10-40 mg per tablet gabapentin Take 300 mg by 0 Discontinued (NEURONTIN) 300 mg mouth 3 (three) 8 capsule times a day. insulin ASPART Inject 5 Units 0 Discontinued (NovoLOG) 100 under the skin 3 8 unit/mL injection (three) times a day before meals. insulin detemir Inject 70 Units 0 Discontinued U-100 (LEVEMIR) under the skin 8 100 unit/mL every morning. injection insulin detemir Inject 30 Units 0 Discontinued U-100 (LEVEMIR) under the skin 8 100 unit/mL every evening. injection lisinopril Take 20 mg by 0 Discontinued (PRINIVIL,ZESTRIL) mouth daily. 8 20 mg tablet (Patient was not sure if he takes this medication at home) metoprolol Take 50 mg by 0 Discontinued tartrate mouth 2 (two) 8 (LOPRESSOR) 100 mg times a day. tablet (Patient was not sure if he takes this medication at home) testosterone Inject 200 mg 0 Discontinued cypionate into the 8 (DEPOTESTOTERONE shoulder, thigh, CYPIONATE) 200 or buttocks 2 mg/mL injection (two) times a week. (Saturday & Saturday) traMADol (ULTRAM) Take 50 mg by 0 Discontinued 50 mg tablet mouth 3 (three) 8 times a day as needed for moderate pain. pantoprazole Take 40 mg by 0 Discontinued (PROTONIX) 40 MG mouth 2 (two) 8 EC tablet times a day. sildenafil Take 100 mg by 0 Discontinued (VIAGRA) 100 MG mouth daily as 8 tablet needed for erectile dysfunction (1 hour before intercourse). Active Problems Problem Noted Date Leg weakness, bilateral 01/20/2018 Iron deficiency anemia secondary to inadequate dietary iron intake 09/25/2016 Hospital discharge follow-up 09/11/2016 Altered mental status, unspecified 09/04/2016 Acute alcoholic hepatitis 09/04/2016 Hyperkalemia 09/04/2016 Lactic acidosis 09/04/2016 Alcohol abuse 09/04/2016 Acute renal failure 09/04/2016 Type 2 diabetes mellitus with complication, with long-term current use of 06/2016 insulin Nausea and vomiting 09/04/2016 Normocytic anemia 09/04/2016 Encounters Date Type Specialty Care Team Description 01/31/2018 Anesthesia Event General Surgery Luisa Diamond CRNA 01/31/2018 Surgery General Surgery Thomas Covarrubias MD [id number] LAMINECTOMY AND DISCECTOMY 01/30/2018 Anesthesia Event Radiology Catina Gage MD 01/28/2018 Surgery Procedural Nemesio Buck Left heart cath w Cardiology MD brigitte Mccray [[id number] (CPT)] 01/23/2018 Orders Only Procedural [facility] Aby Og 01/20/2018 - Hospital Encounter General Internal Catina Oreilly Leg weakness, bilateral (Primary Dx); 02/05/2018 Medicine MD Kaylee Hyperkalemia; Kun Olmos MD Hyperglycemia; Back pain, lumbosacral; Secondary hypertension 01/11/2018 Intake Access N/A 02/18/2017 Office Visit Internal Medicine Antonia Solis, Low blood pressure, not hypotension (Primary Dx); Type 2 diabetes mellitus without complication, unspecified terminal carman insulin use status; Stage 3 chronic kidney disease after 02/04/2017 Family History Medical History Relation Name Comments Heart disease Father Heart disease Mother Relation Name Status Comments Father Mother Social History Tobacco Use Types Packs/Day Years Used Date Current Some Day Smoker Cigarettes 1 10 Quit: 09/05/1991 Smokeless Tobacco: Current User Tobacco Cessation: Counseling Given: Yes Alcohol Use Drinks/Week oz/Week Comments Yes 3 Shots of liquor 1.8 3 week Sex Assigned at Date Recorded Not on file Job Start Date Occupation Industry Not on file Not on file Not on file Travel History Travel Start Travel End No recent travel history available. Last Filed Vital Signs Vital Sign Reading Time Taken Blood Pressure 126/53 02/05/2018 2:55 [facility] Pulse 52 02/05/2018 2:55 [facility] Temperature 36.5 C (97.7 F) 02/05/2018 11:16 [facility] Respiratory Rate 18 02/05/2018 2:55 [facility] Oxygen Saturation 96% 02/05/2018 2:55 [facility] Inhaled Oxygen Concentration - - Weight 81 kg (178 lb 9 oz) 02/05/2018 6:00 [facility] Height 175.3 cm (5' 9") 01/31/2018 3:17 [facility] Body Mass Index 26.37 02/05/2018 6:00 [facility] Plan of Treatment Health Maintenance Due Date Last Done Comments DIABETIC RETINAL EYE EXAM 1945 DIABETIC FOOT EXAM 1953 COLON CANCER SCREENING 1993 SHINGRIX VACCINE (1 of 2) 1993 ZOSTER VACCINE 2003 PNEUMOCOCCAL POLYSACCHARIDE VACCINE AGE 65 AND OVER 2008 PNEUMOCOCCAL-13 2008 INFLUENZA VACCINE 10/02/2017 Implants Explanted Type Area Shipwright Supervisor Device Identifier Shelf Expiration Model / Serial Date / Lot Kamron / / [id number] Procedures Procedure Name Priority Date/Time Associated Comments Diagnosis ECG 12-LEAD Routine 02/05/2018 12:57 Results for this [facility] procedure are in the results section. POC GLUCOSE Routine 02/05/2018 10:56 Results for this [facility] procedure are in the results section. POC GLUCOSE Routine 02/05/2018 7:53 Results for this [facility] procedure are in the results section. POC GLUCOSE Routine 02/05/2018 5:07 Results for this [facility] procedure are in the results section. VITAMIN D 25 HYDROXY Routine 02/05/2018 3:10 Results for this LEVEL [facility] procedure are in the results section. POC GLUCOSE Routine 02/05/2018 1:17 Results for this [facility] procedure are in the results section. POC GLUCOSE Routine 02/04/2018 9:20 Results for this [facility] procedure are in the results section. POC GLUCOSE Routine 02/04/2018 6:00 Results for this [facility] procedure are in the results section. POC GLUCOSE Routine 02/04/2018 12:16 Results for this [facility] procedure are in the results section. POC GLUCOSE Routine 02/04/2018 8:34 Results for this [facility] procedure are in the results section. POC GLUCOSE Routine 02/03/2018 9:47 Results for this [facility] procedure are in the results section. POC GLUCOSE Routine 02/03/2018 4:41 Results for this [facility] procedure are in the results section. POC GLUCOSE Routine 02/03/2018 12:13 Results for this [facility] procedure are in the results section. POC GLUCOSE Routine 02/03/2018 8:12 Results for this [facility] procedure are in the results section. ECG 12-LEAD STAT 02/02/2018 9:13 [facility] POC GLUCOSE Routine 02/02/2018 8:39 Results for this [facility] procedure are in the results section. TROPONIN STAT 02/02/2018 7:22 Results for this [facility] procedure are in the results section. ESTIMATED GFR STAT 02/02/2018 7:22 Results for this [facility] procedure are in the results section. PHOSPHORUS LEVEL STAT 02/02/2018 7:22 Results for this [facility] procedure are in the results section. LACTIC ACID LEVEL STAT 02/02/2018 7:22 Results for this [facility] procedure are in the results section. MAGNESIUM LEVEL STAT 02/02/2018 7:22 Results for this [facility] procedure are in the results section. COMPREHENSIVE STAT 02/02/2018 7:22 Results for this METABOLIC PANEL [facility] procedure are in the results section. POC GLUCOSE Routine 02/02/2018 4:47 Results for this [facility] procedure are in the results section. POC GLUCOSE Routine 02/02/2018 12:13 Results for this [facility] procedure are in the results section. POC GLUCOSE Routine 02/02/2018 12:04 Results for this [facility] procedure are in the results section. POC GLUCOSE Routine 02/02/2018 7:44 Results for this [facility] procedure are in the results section. POC GLUCOSE Routine 02/02/2018 4:02 Results for this [facility] procedure are in the results section. POC GLUCOSE Routine 02/01/2018 9:00 Results for this [facility] procedure are in the results section. POC GLUCOSE Routine 02/01/2018 5:24 Results for this [facility] procedure are in the results section. POC GLUCOSE Routine 02/01/2018 12:00 Results for this [facility] procedure are in the results section. POC GLUCOSE Routine 02/01/2018 9:22 Results for this [facility] procedure are in the results section. POC GLUCOSE Routine 01/31/2018 7:46 Results for this [facility] procedure are in the results section. XR LUMBAR SPINE 1 VW Routine 01/31/2018 6:22 Results for this [facility] procedure are in the results section. SURGICAL PATHOLOGY Routine 01/31/2018 6:03 Results for this REQUEST [facility] procedure are in the results section. XR LUMBAR SPINE 1 VW Routine 01/31/2018 5:41 Results for this [facility] procedure are in the results section. XR LUMBAR SPINE 1 VW Routine 01/31/2018 4:50 Results for this [facility] procedure are in the results section. ARTERIAL LINE Routine 01/31/2018 4:32 [facility] Procedure Note - Luisa Diamond CRNA - 01/31/2018 4:32 [facility] Arterial line Performed by: Luisa Diamond CRNA Authorized by: Xavier Contreras II, MD Start Time: 01/31/2018 4:12 PM End Time: 01/31/2018 4:12 PM Staff: Performed by: Anesthesiologist Pre-procedure: patient identified, IV checked, site and side verified, risks and benefits discussed, procedure verified, surgical consent complete, patient position confirmed, monitors and equipment checked and pre-op evaluation complete MSBT: antiseptic used, all elements of maximal sterile barrier technique followed, hand hygiene performed and cap/gown used by other personnel Indications: Indications: hemodynamic monitoring Anesthesia: Anesthesia: Local infiltration Procedure Details: Arterial Line placement: Placed pre-induction Line placement site: Radial Line placement side: Left Arterial line gauge: 20 G Number of attempts: 1 Ultrasound guidance used: No Post-procedure: Post-procedure: Sterile dressing applied Post procedure circulation, sensation, movement: Normal Patient tolerance: Patient tolerated the procedure well with no immediate complications MN AN ELECTIVE ENDOTRACHEAL AIRWAY Routine 01/31/2018 4:30 [facility] Procedure Note - Luisa Diamond CRNA - 01/31/2018 4:30 [facility] ANESTHESIA INTUBATION Date/Time: 01/31/2018 4:30 PM Performed by: Luisa Diamond CRNA Authorized by: Xavier Contreras II, MD Location: OR Urgency: Elective Difficult Airway: No Performed by: resident/LACE PINNER/AA Preoxygenated with 100% O2: Yes C-spine Precautions Maintained Throughout: Yes Mask Ventilation: Easy mask Final Airway Type: Endotracheal airway Final Endotracheal Airway: ETT Cuffed: Yes Technique Used: Video laryngoscopy Devices/Methods Used in Placement: Intubating stylet Insertion Site: Oral Blade Type: Linda Laryngoscope Blade/Videolaryngoscope Blade Size: 4 ETT Size (mm): 8.0 Cuff at minimum occlusion pressure: Yes Measured from: Lips ETT to Lips (cm): 22 Placement Verified by: CO2 detection, direct visualization and equal breath sounds Laryngoscopic view: Grade I - full view of glottis Rapid Sequence Induction (RSI): No Modified RSI: No Number of Attempts at Approach: 1 POC GLUCOSE Routine 01/31/2018 3:10 Results for this [facility] procedure are in the results section. LAMINECTOMY, LUMBAR 01/31/2018 3:05 lucas [facility] POC GLUCOSE Routine 01/31/2018 2:09 Results for this [facility] procedure are in the results section. POC GLUCOSE Routine 01/31/2018 8:14 Results for this [facility] procedure are in the results section. POC GLUCOSE Routine 01/31/2018 5:05 Results for this [facility] procedure are in the results section. ESTIMATED GFR Routine 01/31/2018 4:00 Results for this [facility] procedure are in the results section. HC COMPLETE BLD COUNT Routine 01/31/2018 4:00 Results for this W/AUTO DIFF [facility] procedure are in the results section. BASIC METABOLIC PANEL Routine 01/31/2018 4:00 Results for this [facility] procedure are in the results section. TYPE AND SCREEN Routine 01/31/2018 12:29 Results for this [facility] procedure are in the results section. XR CHEST 1 VW PORTABLE STAT 01/30/2018 10:33 Results for this [facility] procedure are in the results section. POC GLUCOSE Routine 01/30/2018 9:56 Results for this [facility] procedure are in the results section. POC GLUCOSE Routine 01/30/2018 6:52 Results for this [facility] procedure are in the results section. PROTHROMBIN TIME WITH Routine 01/30/2018 1:30 Results for this INR [facility] procedure are in the results section. POC GLUCOSE Routine 01/30/2018 10:47 Results for this [facility] procedure are in the results section. POC GLUCOSE Routine 01/30/2018 8:58 Results for this [facility] procedure are in the results section. MRI LUMBAR SPINE W WO Routine 01/30/2018 8:31 Results for this CONTRAST [facility] procedure are in the results section. POC GLUCOSE Routine 01/30/2018 7:36 Results for this [facility] procedure are in the results section. ESTIMATED GFR Routine 01/30/2018 5:00 Results for this [facility] procedure are in the results section. HC COMPLETE BLD COUNT Routine 01/30/2018 5:00 Results for this W/AUTO DIFF [facility] procedure are in the results section. BASIC METABOLIC PANEL Routine 01/30/2018 5:00 Results for this [facility] procedure are in the results section. POC GLUCOSE Routine 01/29/2018 9:16 Results for this [facility] procedure are in the results section. POC GLUCOSE Routine 01/29/2018 5:15 Results for this [facility] procedure are in the results section. POC GLUCOSE Routine 01/29/2018 12:46 Results for this [facility] procedure are in the results section. POC GLUCOSE Routine 01/29/2018 8:11 Results for this [facility] procedure are in the results section. ESTIMATED GFR Routine 01/29/2018 4:55 Results for this [facility] procedure are in the results section. PHOSPHORUS LEVEL Routine 01/29/2018 4:55 Results for this [facility] procedure are in the results section. MAGNESIUM LEVEL Routine 01/29/2018 4:55 Results for this [facility] procedure are in the results section. BASIC METABOLIC PANEL Routine 01/29/2018 4:55 Results for this [facility] procedure are in the results section. HC COMPLETE BLD COUNT Routine 01/29/2018 4:55 Results for this W/AUTO DIFF [facility] procedure are in the results section. POC GLUCOSE Routine 01/28/2018 9:15 Results for this [facility] procedure are in the results section. POC GLUCOSE Routine 01/28/2018 5:45 Results for this [facility] procedure are in the results section. POC GLUCOSE Routine 01/28/2018 12:35 Results for this [facility] procedure are in the results section. POC GLUCOSE Routine 01/28/2018 9:30 Results for this [facility] procedure are in the results section. POC GLUCOSE Routine 01/28/2018 8:11 Results for this [facility] procedure are in the results section. CV BYPASS GRAFT LEFT Routine 01/28/2018 7:46 Results for this HEART [facility] procedure are in the results section. CV SELECTIVE CORONARY Routine 01/28/2018 7:46 Results for this ANGIOGRAPHY [facility] procedure are in the results section. CV LEFT HEART CATH LV Routine 01/28/2018 7:46 Results for this GRAM WITH CORS [facility] procedure are in the results section. POC GLUCOSE Routine 01/28/2018 4:49 Results for this [facility] procedure are in the results section. HC COMPLETE BLD COUNT Routine 01/28/2018 4:45 Results for this W/AUTO DIFF [facility] procedure are in the results section. ESTIMATED GFR Routine 01/28/2018 4:00 Results for this [facility] procedure are in the results section. BASIC METABOLIC PANEL Routine 01/28/2018 4:00 Results for this [facility] procedure are in the results section. POC GLUCOSE Routine 01/27/2018 8:57 Results for this [facility] procedure are in the results section. POC GLUCOSE Routine 01/27/2018 5:47 Results for this [facility] procedure are in the results section. POC GLUCOSE Routine 01/27/2018 12:48 Results for this [facility] procedure are in the results section. POC GLUCOSE Routine 01/27/2018 10:21 Results for this [facility] procedure are in the results section. POC GLUCOSE Routine 01/27/2018 8:20 Results for this [facility] procedure are in the results section. POC GLUCOSE Routine 01/26/2018 5:55 Results for this [facility] procedure are in the results section. POC GLUCOSE Routine 01/26/2018 4:33 Results for this [facility] procedure are in the results section. POC GLUCOSE Routine 01/26/2018 12:21 Results for this [facility] procedure are in the results section. POC GLUCOSE Routine 01/26/2018 8:04 Results for this [facility] procedure are in the results section. POC GLUCOSE Routine 01/25/2018 9:05 Results for this [facility] procedure are in the results section. POC GLUCOSE Routine 01/25/2018 5:21 Results for this [facility] procedure are in the results section. POC GLUCOSE Routine 01/25/2018 2:07 Results for this [facility] procedure are in the results section. POC GLUCOSE Routine 01/25/2018 12:42 Results for this [facility] procedure are in the results section. POC GLUCOSE Routine 01/25/2018 8:10 Results for this [facility] procedure are in the results section. ESTIMATED GFR Routine 01/25/2018 4:00 Results for this [facility] procedure are in the results section. BASIC METABOLIC PANEL Routine 01/25/2018 4:00 Results for this [facility] procedure are in the results section. HC COMPLETE BLD COUNT Routine 01/25/2018 4:00 Results for this W/AUTO DIFF [facility] procedure are in the results section. POC GLUCOSE Routine 01/24/2018 9:13 Results for this [facility] procedure are in the results section. POC GLUCOSE Routine 01/24/2018 4:20 Results for this PM [facility] [facility] procedure are in the results section. POC GLUCOSE Routine 01/24/2018 4:06 Results for this [facility] procedure are in the results section. POC GLUCOSE Routine 01/24/2018 3:03 Results for this [facility] procedure are in the results section. POC GLUCOSE Routine 01/24/2018 3:02 Results for this [facility] procedure are in the results section. POC GLUCOSE Routine 01/24/2018 8:35 Results for this [facility] procedure are in the results section. POC GLUCOSE Routine 01/24/2018 6:14 Results for this [facility] procedure are in the results section. POC GLUCOSE Routine 01/24/2018 4:56 Results for this [facility] procedure are in the results section. POC GLUCOSE Routine 01/23/2018 9:33 Results for this [facility] procedure are in the results section. POC GLUCOSE Routine 01/23/2018 6:28 Results for this [facility] procedure are in the results section. NM MYOCARDIAL Routine 01/23/2018 10:09 Results for this PERFUSION STRESS ONLY [facility] procedure are in the results section. CV STRESS TEST NUCLEAR Routine 01/23/2018 10:09 Results for this CARDIO [facility] procedure are in the results section. US CAROTID DUPLEX Routine 01/23/2018 7:35 Results for this BILATERAL [facility] procedure are in the results section. POC GLUCOSE Routine 01/23/2018 5:33 Results for this [facility] procedure are in the results section. POC GLUCOSE Routine 01/22/2018 10:38 Results for this [facility] procedure are in the results section. POC GLUCOSE Routine 01/22/2018 9:18 Results for this [facility] procedure are in the results section. POC GLUCOSE Routine 01/22/2018 5:35 Results for this [facility] procedure are in the results section. POC GLUCOSE Routine 01/22/2018 2:17 Results for this [facility] procedure are in the results section. CT LUMBAR SPINE W Routine 01/22/2018 11:43 Results for this CONTRAST [facility] procedure are in the results section. POC GLUCOSE Routine 01/22/2018 9:00 Results for this [facility] procedure are in the results section. HC COMPLETE BLD COUNT Routine 01/22/2018 5:40 Results for this W/AUTO DIFF [facility] procedure are in the results section. POC GLUCOSE Routine 01/22/2018 5:08 Results for this [facility] procedure are in the results section. ESTIMATED GFR Routine 01/22/2018 4:00 Results for this [facility] procedure are in the results section. MAGNESIUM LEVEL Routine 01/22/2018 4:00 Results for this [facility] procedure are in the results section. BASIC METABOLIC PANEL Routine 01/22/2018 4:00 Results for this [facility] procedure are in the results section. POC GLUCOSE Routine 01/21/2018 5:03 Results for this [facility] procedure are in the results section. URINALYSIS SCREEN AND STAT 01/21/2018 12:50 Results for this MICROSCOPY, WITH [facility] procedure are in REFLEX TO CULTURE the results section. URINE CULTURE STAT 01/21/2018 12:49 Results for this [facility] procedure are in the results section. POC GLUCOSE Routine 01/21/2018 12:41 Results for this [facility] procedure are in the results section. BLOOD CULTURE, AEROBIC Routine 01/21/2018 11:34 Results for this & ANAEROBIC [facility] procedure are in the results section. BLOOD CULTURE, AEROBIC Routine 01/21/2018 11:22 Results for this & ANAEROBIC [facility] procedure are in the results section. POC GLUCOSE Routine 01/21/2018 8:22 Results for this [facility] procedure are in the results section. ECHOCARDIOGRAM 2D Routine 01/21/2018 7:37 Results for this COMPLETE W MMODE [facility] procedure are in SPECTRAL COLOR DOPPLER the results (36909) section. POC GLUCOSE Routine 01/21/2018 4:21 Results for this [facility] procedure are in the results section. C-REACTIVE PROTEIN Routine 01/21/2018 4:00 Results for this [facility] procedure are in the results section. ESTIMATED GFR Routine 01/21/2018 4:00 Results for this [facility] procedure are in the results section. FOLATE RBC (GROUP Routine 01/21/2018 4:00 Results for this TEST) [facility] procedure are in the results section. VITAMIN B12 LEVEL Routine 01/21/2018 4:00 Results for this [facility] procedure are in the results section. THYROID STIMULATING Routine 01/21/2018 4:00 Results for this HORMONE [facility] procedure are in the results section. T4, FREE Routine 01/21/2018 4:00 Results for this [facility] procedure are in the results section. PHOSPHORUS LEVEL Routine 01/21/2018 4:00 Results for this [facility] procedure are in the results section. MAGNESIUM LEVEL Routine 01/21/2018 4:00 Results for this [facility] procedure are in the results section. HEMOGLOBIN A1C Routine 01/21/2018 4:00 Results for this [facility] procedure are in the results section. COMPREHENSIVE Routine 01/21/2018 4:00 Results for this METABOLIC PANEL [facility] procedure are in the results section. HC COMPLETE BLD COUNT Routine 01/21/2018 4:00 Results for this W/AUTO DIFF [facility] procedure are in the results section. SEDIMENTATION RATE STAT 01/21/2018 4:00 Results for this [facility] procedure are in the results section. POC GLUCOSE Routine 01/21/2018 3:46 Results for this [facility] procedure are in the results section. POC GLUCOSE Routine 01/20/2018 11:10 Results for this [facility] procedure are in the results section. US DUPLEX ARTERIAL STAT 01/20/2018 6:20 Results for this LOWER EXTREMITY [facility] procedure are in BILATERAL the results section. POC GLUCOSE Routine 01/20/2018 5:37 Results for this [facility] procedure are in the results section. US DUPLEX VENOUS LOWER STAT 01/20/2018 5:20 Results for this EXTREMITY BILATERAL [facility] procedure are in the results section. POC GLUCOSE Routine 01/20/2018 5:03 Results for this [facility] procedure are in the results section. POC GLUCOSE Routine 01/20/2018 4:35 Results for this [facility] procedure are in the results section. ECG 12-LEAD STAT 01/20/2018 4:07 Results for this [facility] procedure are in the results section. POC GLUCOSE Routine 01/20/2018 3:49 Results for this [facility] procedure are in the results section. ESTIMATED GFR STAT 01/20/2018 1:30 Results for this [facility] procedure are in the results section. COMPREHENSIVE STAT 01/20/2018 1:30 Results for this METABOLIC PANEL [facility] procedure are in the results section. HC COMPLETE BLD COUNT STAT 01/20/2018 1:30 Results for this W/AUTO DIFF [facility] procedure are in the results section. POC GLUCOSE Routine 02/18/2017 4:40 Type 2 diabetes Results for this [facility] mellitus without procedure are in complication, the results unspecified long section. term insulin use status ORTHOSTATIC VITAL Routine 02/18/2017 3:25 Low blood pressure, Results for this SIGNS [facility] not hypotension procedure are in the results section. HEMOGLOBIN A1C Routine 02/13/2017 10:00 Diabetes mellitus Results for this [facility] due to underlying procedure are in condition with the results complication, with section. long-term current use of insulin Essential hypertension COMPREHENSIVE Routine 02/13/2017 10:00 Essential Results for this METABOLIC PANEL [facility] hypertension procedure are in the results section. CBC WITH PLATELET AND Routine 02/13/2017 10:00 Essential Results for this DIFFERENTIAL [facility] hypertension procedure are in the results section. after 02/04/2017 Results ECG 12 lead (02/05/2018 12:57 [facility])Only the most recent of2 resultswithin the time period is included. Ventricular rate 104 [facility] Atrial rate 104 [facility] MN interval 196 [facility] QRSD interval 148 [facility] QT interval 384 [facility] QTC interval 504 [facility] P axis 1 -6 [facility] QRS axis 1 250 [facility] T wave axis 46 [facility] EKG impression Sinus tachycardia with premature atrial complexes-Right bundle branch block-Abnormal ECG-In automated comparison with ECG of 02-FEB-2018 21:13, -premature atrial complexes are now present-MN interval has [facility] increased- Narrative Performed At Performing Organization Address City/[facility]/Zipcode Phone Number [facility] MUSE [address] [place] [address] POC glucose (02/05/2018 10:56 [facility])Only the most recent of84 resultswithin the time period is included. POC glucose 293 (H) 65 - 99 mg/dL [facility] Comment: [facility] Notified RN Meter ID: [id number] Community Service Manager: Francois Farmer Performing Organization Address City/[facility]/Zipcode Phone Number [facility] DEPARTMENT OF PATHOLOGY AND [address] [place] [phone] [address] Vitamin D 25 hydroxy level (02/05/2018 3:10 [facility]) Vitamin D, 25-hydroxy 18.4 (L) 30.0 - 150.0 [facility] Comment: ng/mL HOSPITAL This assay reports the sum of 25-hydroxy vitamin D3 and 25-hydroxy vitamin D2. Reference range: 0-17 years: Deficiency: less than 20ng/mL Optimum level: greater than or equal to 20 ng/mL. 18 years and older: Deficiency: less than 20ng/mL Insufficiency: 20-29 ng/mL Optimum Level: 30-80 ng/mL The assay reportable range is 3.4155.9 ng/mL. Levels higher than 150 ng/mL may be associated with toxicity. If toxicity is clinically suspected and the reported result is >155.9 ng/mL,contact lab for alternative methods to obtain a definitivelevel. If separate quantitation of 25-hydroxy vitamin D3 and 25-hydroxy vitamin D2 is needed, please contact lab for alternative methods. Specimen Blood Performing Organization Address City/[facility]/Zipcode Phone Number [facility] DEPARTMENT OF PATHOLOGY AND [address] [place] [phone] [address] Estimated GFR (02/02/2018 7:22 [facility])Only the most recent of9 resultswithin the time period is included. Estimated GFR 77 mL/min/1.73 m2 [facility] Comment: HOSPITAL CatergoryUnitsInterpretation G1 >=90 Normal or high G2 60-89Mildly decreased [id number] to moderately decreased [id number] to severely decreased G4 15-29Severely decreased G5 <15Kidney failure The eGFR was calculated using the Chronic Kidney Disease Epidemiology Collaboration (CKD-EPI) equation. Interpretation is based on recommendations of the National Kidney Foundation-Kidney Disease Outcomes Quality Initiative (NKF-KDOQI) published in 2014. Specimen Plasma specimen Performing Organization Address City/[facility] Phone Number [facility] DEPARTMENT OF PATHOLOGY AND [address] [place] [address] Troponin (02/02/2018 7:22 [facility]) Troponin <0.30 0.00 - 0.30 ng/mL [facility] Comment: 0.30 - 1.49 ng/mlMay indicate increased risk of acute coronary syndrome. >=1.5 ng/mlConsistent with acute myocardial infarction. The diagnostic value of a single normal or non-diagnostic result is questionable.Serial samples at 2-6 hour intervals are required to rule out acute myocardial injury. Specimen Plasma specimen Performing Organization Address [facility] Phone Number [facility] DEPARTMENT OF PATHOLOGY AND [address] [place] [phone] Phosphorus level (02/02/2018 7:22 [facility])Only the most recent of3 resultswithin the time period is included. Phosphorus 3.5 2.4 - 4.5 mg/dL [facility] Specimen Plasma specimen Performing Organization Address [facility] Cent[facility] Phone Number [facility] DEPARTMENT OF PATHOLOGY AND [address] [place] [phone] Magnesium level (02/02/2018 7:22 [facility])Only the most recent of4 resultswithin the time period is included. Magnesium 1.9 1.6 - 2.4 mg/dL [facility] Specimen Plasma specimen Performing Organization Address [facility] Cent[facility]ode Phone Number [facility] DEPARTMENT OF PATHOLOGY AND [address] [place] [address] [place] [address] Lactic acid level (02/02/2018 7:22 [facility]) Lactic acid 2.4 (H) 0.5 - 2.2 mmol/L [facility] Specimen Plasma specimen Performing Organization Address City/[facility]ode Phone Number [facility] DEPARTMENT OF PATHOLOGY AND [address] [place] [address] [facility] [address] [place] [address] Comprehensive metabolic panel (02/02/2018 7:22 [facility])Only the most recent of4 resultswithin the time period is included. Sodium 135 135 - 148 mEq/L [facility] Potassium 4.7 3.5 - 5.0 mEq/L [facility] Chloride 98 98 - 112 mEq/L [facility] CO2 24 24 - 31 mEq/L [facility] Anion gap 13@ANIO 7 - 15 mEq/L [facility] BUN 27 (H) 8 - 23 mg/dL [facility] Creatinine 0.96 0.70 - 1.20 mg/dL [facility] Glucose 220 (H) 65 - 99 mg/dL [facility] Calcium 9.2 8.8 - 10.2 mg/dL [facility] Protein 6.2 (L) 6.3 - 8.3 g/dL [facility] Comment: HOSPITAL 4.6-7.0 g/dL 1 week 4.4-7.6 g/dL 7 months-1year5.1-7.3 g/dL 1-2 years5.6-7.5 g/dL >3 years6.0-8.0 g/dL 18-150 6.3-8.3 g/dL Albumin 3.0 (L) 3.5 - 5.0 g/dL [facility] A/G ratio 0.9 0.7 - 3.8 [facility] Alkaline phosphatase 171 (H) 40 - 129 U/L [facility] AST 78 (H) 10 - 50 U/L [facility] ALT 110 (H) 5 - 50 U/L [facility] Total bilirubin 0.5 0.0 - 1.2 mg/dL [facility] Specimen Plasma specimen Performing Organization Address City/[facility]/Zipcode Phone Number [facility] DEPARTMENT OF PATHOLOGY AND [address] [place] [address] [facility] [address] [place] [address] XR Lumbar Spine 1 Vw (01/31/2018 6:22 [facility])Only the most recent of3 resultswithin the time period is included. Narrative Performed At EXAMINATION: XR LUMBAR SPINE 1 VW [facility] CLINICAL HISTORY: Lumbar region back pain and radiculopathy COMPARISON:Intraoperative x-ray from earlier today. FINDINGS: There are multiple radiopaque instruments in the posterior paraspinal soft tissues overlapping the posterior elements at the L4 pedicle level. One instrument tip overlaps the canal at the L3 pedicle level. There are degenerative changes in the lumbar spine. IMPRESSION: Lateral portable crosstable intraoperative radiograph of the lumbar spine for localization during lumbar spine surgery. [facility]-[id number] Procedure Note Hm Interface, Radiology Results Incoming - 01/31/2018 6:49 [facility] EXAMINATION: XR LUMBAR SPINE 1 VW CLINICAL HISTORY: Lumbar region back pain and radiculopathy COMPARISON: Intraoperative x-ray from earlier today. FINDINGS: There are multiple radiopaque instruments in the posterior paraspinal soft tissues overlapping the posterior elements at the L4 pedicle level. One instrument tip overlaps the canal at the L3 pedicle level. There are degenerative changes in the lumbar spine. IMPRESSION: Lateral portable crosstable intraoperative radiograph of the lumbar spine for localization during lumbar spine surgery. [facility]-[id number] Performing Organization Address City/State/Zipcode Phone Number [facility] [address] [place] [address] Surgical pathology request (01/31/2018 6:03 [facility]) [facility] DEPARTMENT OF PATHOLOGY AND GENOMIC MEDICINE Surgical pathology report See link below for PDF [facility] DEPARTMENT OF Lab Report PATHOLOGY AND GENOMIC MEDICINE Result status This is Final Report [facility] DEPARTMENT OF for [id number] PATHOLOGY AND GENOMIC MEDICINE Performing Organization Address City/State/Zipcode Phone Number [facility] DEPARTMENT OF PATHOLOGY AND [address] [place] [phone] GENOMIC MEDICINE CBC with platelet and differential (01/31/2018 4:00 [facility])Only the most recent of9 resultswithin the time period is included. WBC 4.55 4.50 - 11.00 k/uL [facility] RBC 5.40 4.40 - 6.00 m/uL [facility] HGB 13.3 (L) 14.0 - 18.0 g/dL [facility] HCT 44.1 41.0 - 51.0 % [facility] MCV 81.7 (L) 82.0 - 100.[address] [facility] MCH 24.6 (L) 27.0 - 34.[address] [facility] MCHC 30.2 (L) 31.0 - 37.0 g/dL [facility] RDW - SD 57.4 (H) 37.0 - 55.[address] [facility] MPV 10.5 8.8 - 13.[address] [facility] Platelet count 254 150 - 400 k/uL [facility] Nucleated RBC 0.00 /[address] [facility] Neutrophils 46.2 39.0 - 69.0 % [facility] Lymphocytes 31.0 25.0 - 45.0 % [facility] Monocytes 17.1 (H) 0.0 - 10.0 % [facility] Eosinophils 2.2 0.0 - 5.0 % [facility] Basophils 2.2 (H) 0.0 - 1.0 % [facility] Immature granulocytes 1.3 (H)Comment: 0.0 - 1.0 % [facility] "[facility] granulocytes" (promyelocytes, myelocytes, metamyelocytes) Specimen Blood Performing Organization Address City/State/Zipcode Phone Number [facility] DEPARTMENT OF PATHOLOGY AND [address] [place] [address] GENOMIC MED[address] [address] Basic metabolic panel (01/31/2018 4:00 [facility])Only the most recent of6 resultswithin the time period is included. Sodium 134 (L) 135 - 148 mEq/L [facility] Potassium 4.6 3.5 - 5.0 mEq/L [facility] Chloride 97 (L) 98 - 112 mEq/L [facility] CO2 23 (L) 24 - 31 mEq/L [facility] Anion gap 14@ANIO 7 - 15 mEq/L [facility] BUN 30 (H) 8 - 23 mg/dL [facility] Creatinine 1.22 (H) 0.70 - 1.20 mg/dL [facility] Glucose 162 (H) 65 - 99 mg/dL [facility] Calcium 9.6 8.8 - 10.2 mg/dL [facility] Specimen Plasma specimen Performing Organization Address City/[facility] Phone Number [facility] DEPARTMENT OF PATHOLOGY AND [address] [place] [address] [facility] [place] [address] [place] [address] Type and screen (01/31/2018 12:29 [facility]) ABO grouping AB [facility] Rh type POS [facility] Antibody screen (gel) NEG [facility] Performing Organization Address [facility] Phone Number [facility] DEPARTMENT OF PATHOLOGY AND [address] [place], [place] [id number] [place] [phone] XR Chest 1 Vw Portable (01/30/2018 10:33 [facility]) Narrative Performed At EXAMINATION:XR CHEST 1 VW PORTABLE [facility] CLINICAL HISTORY:Pre-op COMPARISON:September 04, 2016 IMPRESSION: 1.Heart size is within normal limits. There is been a sternotomy. 2.Retrocardiac density is probably related to hiatal hernia. 3.Vessels are not congested. No infiltrates are seen. [id number] Procedure Note Hm Interface, Radiology Results Incoming - 01/30/2018 10:45 [facility] EXAMINATION: XR CHEST 1 VW PORTABLE CLINICAL HISTORY: Pre-op COMPARISON: September 04, 2016 IMPRESSION: 1. Heart size is within normal limits. There is been a sternotomy. 2. Retrocardiac density is probably related to hiatal hernia. 3. Vessels are not congested. No infiltrates are seen. [id number] Performing Organization Address [facility] Phone Number [facility] [address] [place] [address] Prothrombin time with INR (01/30/2018 1:30 [facility]) Prothrombin time 15.3 (H) 11.5 - 14.[address] [facility] INR 1.2 [facility] Comment: HOSPITAL The International Normalized Ratio (INR) is a therapeutic monitoring tool for patients who are stable on oral anticoagulant therapy. An INR of 2.0-3.0 is suggested for deep vein thrombosis/pulmonary embolism. Specimen Blood Performing Organization Address City/[facility] Phone Number [facility] DEPARTMENT OF PATHOLOGY AND [address] [place] [address] [facility] [address] [place] [phone] MRI Lumbar Spine W Wo Contrast (01/30/2018 8:31 AM [facility]) Narrative Performed At EXAMINATION:MRI LUMBAR SPINE W WO CONTRAST [facility] CLINICAL HISTORY:L S-spine stenosis, Back painrapidly progressive neuro deficit COMPARISON:January 22, 2018 FINDINGS: Lowermost functional disc space is assumed to be L5-S1. Dextroscoliosis of the midlumbar spine. Right lateral listhesis at L3-4. Mild left lateral listhesis at L2-3. Mild retrolisthesis at L2-3 and L3-4. Multilevel disc space narrowing and endplate degenerative changes worst at left L2-3 left L3-4. No suspicious focal bone marrow lesions. Visualized spinal cord is normal in appearance. No abnormal postcontrast enhancement. L1-2: Right paracentral disc protrusion. No significant canal narrowing. Scoliotic curvature, posterior disc bulge and facet arthropathy causes mild narrowing of the right foramen. L2-3: Retrolisthesis, posterior disc bulge, facet arthropathy and epidural lipomatosis causes mild to moderate narrowing of the canal most marked in the left lateral recess. Scoliotic curvature, facet a rthropathy and posterior disc bulge causes moderate narrowing of the left and mild narrowing of the right foramen. L3-4: Retrolisthesis, left paracentral disc extrusion with superior migration, facet arthropathy, ligamentum flavum thickening and scoliotic curvature causes severe narrowing of the canal with obliterat ion of the subarachnoid space. There is moderate narrowing of the left greater than right foramen. There are redundant nerve roots below this level. L4-5: Posterior central disc protrusion. Bilateral facet arthropathy. Mild narrowing of the left foramen. No central canal narrowing. L5-S1: Bilateral facet arthropathy. No canal or foraminal narrowing. IMPRESSION: Severe multifactorial L3-4 canal narrowing. [facility]-[id number] Procedure Note Interface, Radiology Results Incoming - 01/30/2018 9:31 AM [facility] EXAMINATION: MRI LUMBAR SPINE W WO CONTRAST CLINICAL HISTORY: L S-spine stenosis, Back pain rapidly progressive neuro deficit COMPARISON: January 22, 2018 FINDINGS: Lowermost functional disc space is assumed to be L5-S1. Dextroscoliosis of the midlumbar spine. Right lateral listhesis at L3-4. Mild left lateral listhesis at L2-3. Mild retrolisthesis at L2-3 and L3-4. Multilevel disc space narrowing and endplate degenerative changes worst at left L2-3 left L3-4. No suspicious focal bone marrow lesions. Visualized spinal cord is normal in appearance. No abnormal postcontrast enhancement. L1-2: Right paracentral disc protrusion. No significant canal narrowing. Scoliotic curvature, posterior disc bulge and facet arthropathy causes mild narrowing of the right foramen. L2-3: Retrolisthesis, posterior disc bulge, facet arthropathy and epidural lipomatosis causes mild to moderate narrowing of the canal most marked in the left lateral recess. Scoliotic curvature, facet arthropathy and posterior disc bulge causes moderate narrowing of the left and mild narrowing of the right foramen. L3-4: Retrolisthesis, left paracentral disc extrusion with superior migration, facet arthropathy, ligamentum flavum thickening and scoliotic curvature causes severe narrowing of the canal with obliteration of the subarachnoid space. There is moderate narrowing of the left greater than right foramen. There are redundant nerve roots below this level. L4-5: Posterior central disc protrusion. Bilateral facet arthropathy. Mild narrowing of the left foramen. No central canal narrowing. L5-S1: Bilateral facet arthropathy. No canal or foraminal narrowing. IMPRESSION: Severe multifactorial L3-4 canal narrowing. [facility]-[id number] Performing Organization Address [facility] [place] Phone Number [facility] [address] [place] [address] Cv microbiology lab assistant procedure (01/28/2018 7:46 AM [facility]) Narrative Performed At LM- 70% HM [facility] LAD- mid 70% Ramus- diffuse disease, small vessel LCX- ostial 70%, mid 70%, distal patent stent OM1- luminal irregularities RCA-100% occluded RICO-LAD graft patent SVG-OM1 graft- proximal eccentric 60% SVG-PDA- mid diffuse 40% plaque, distal 60% LVEF- low normal 50-55% with inferior hypokinesis LVEDP- 9 mmHg No aortic valve gradient upon pullback Note: difficult to remain still on back despite restraints and IV sedation. Performing Organization Address [facility] [place] Phone Number [facility] [address] [place] [address] Cv stress test (01/23/2018 10:09 AM [facility]) Resting HR 62 H MUSE Resting BP 129 H MUSE Peak MET Achieved 1.0 [facility] M[facility] Protocol Name MEGHAN [facility] M[facility] Time in Exercise Phase 00:01:00 [facility] Max Systolic BP 132 [facility] Max Diastolic BP 68 [facility] Max Heart Rate 74 [facility] Max Predicted Heart Rate 146 [facility] M[facility] Target HR Formula (220 - Age)*100% [facility] MUSE Test Indication Pre-Op Evaluation [facility] Arrhy During Ex [facility] ECG Interp Before EX [facility] ECG Interp During Ex [facility] Ex Summary Comment [facility] MUSE Overall HR Response to [facility] Exercise Overall BP Response To [facility] Exercise Reason for Termination [facility] MUSE Stress Test Impression -Waveform interpreted in report [facility] M[facility] associated with image study. No interpretation is provided as part of this Stress ECG report.- Narrative Performed At Performing Organization Address [facility] [place] Phone Number [facility] [address] [place] [address] Nm myocardial perfusion (01/23/2018 10:09 AM [facility]) Narrative Performed At [facility] Nuclear Cardiology and Cardiac CT [address] [address] Myocardial Perfusion Imaging Report Stress ECG tracings are available in [employer], [employer] and [employer] All ECG interpretations are included in this report Pat.Name:TACHO CASTILLO RPat.ID:[id number] St.Date: 01/23/2018Exam Time: 9:00:00 AM Study Type:Myocardial Perfusion Imaging Height:69in BSA: 1.99 m2 DOBAge:1945,72Y Sex: MALEHR: 57 bpm HCT: 40.3 % Nuclear Tech:EITAN Cobian, ARRT(CT), EITAN Mtz ARRT (CT) Pat. Stat.:Inpatient Nuclear Event ID:[id number] Order ID:[id number] Reason for Study:CAD, prior CABG, CAD, prior coronary artery stent History / Clinical:Coronary artery disease, Coronary artery stent, Coronary artery bypass surgery, Diabetes, Hyperlipidemia, Hypertension Procedures:Single Day Stress / Rest Race:C Risk Factors:Known Coronary Atherosclerosis, Diabetes, Cardiovascular Disease, Hyperlipidemia, Hypertension Clinical Symptoms:Regadenoson Surgery: Serum K+ Date,01/22/18 K 4.5/01/22/18 BUN 23, BUN/Creatinine ,01/22/18 BUN 23/, BUN/Creatinine , 01/22/18/01/22/18 Creatinine 1.03 Medications:Lopressor, Lasix, Zestril SUMMARY: SCINTIGRAPHIC RESULTS Perfusion Defect Size (% LV) 5% Total 5% Ischemia0% Scar Left Ventricular Perfusion Results There is a mild apical perfusion defect during stress which improves with rest imaging. Gated SPECT Results The post stress left ventricular ejection fraction is 40% with hypokinesis of all hypoperfused blanc Resting EF 50 % Left ventricular end-diastolic volume is 130 ml; end-systolic volume is78 ml.The left ventricle is of normal size at stress and rest.The right ventricle is of normal size with normal wall motion. Conclusion Abnormal regadenoson Tc-99m tetrofosmin myocardial perfusion study compatible with ischemia in the distal left anterior descending coronary artery vascular territory. The LVEF is low normal at rest and mildly depressed post stress. .post stress drop of LVEF and possibly Transient cavitydilation Comments The study results indicate a intermediate (1%-2%) annual risk for a cardiac or non-fatal myocardial infarction. Study Quality/Artifacts The study quality is good. Comparison to Previous Study None available. STRESS: Baseline Vital Signs:Intervention: Regadenoson 0.4mg/5ml IV over 10 seconds followed by radiotracer injection and 5ml saline flush ECG: Normal Sinus Rhythm HR:57 BP:129/64 Stress Test Results: Target HR: 124 Symptoms and Complications: Signed 01/23/2018 1:53:00 PM Patricia Nam MD Procedure Note Interface, Radiology Results In - 01/27/2018 8:36 AM [facility] Nuclear Cardiology and Cardiac CT [address] [place] [address] Myocardial Perfusion Imaging Report Stress ECG tracings are available in [employer], [employer] and [employer] All ECG interpretations are included in this report Pat.Name: TACHO CASTILLO Pat.ID: [id number] .Date: 01/23/2018 Exam Time: 9:00:00 AM Study Type:Myocardial Perfusion Imaging Height: 69in BSA: 1.99 m2 Age: 103/05/1945,72Y Sex: MALE HR: 57 bpm HCT: 40.3 % Nuclear Tech:EITAN Cobian, ARRT(CT), EITAN Mtz, ARRT (CT) Pat. Stat.:Inpatient Nuclear Event ID:[id number] Order ID: [id number] Reason for Study:CAD, prior CABG, CAD, prior coronary artery stent History / Clinical:Coronary artery disease, Coronary artery stent, Coronary artery bypass surgery, Diabetes, Hyperlipidemia, Hypertension Procedures:Single Day Stress / Rest Race: C Risk Factors:Known Coronary Atherosclerosis, Diabetes, Cardiovascular Disease, Hyperlipidemia, Hypertension Clinical Symptoms:Regadenoson Surgery: Serum K+ Date, 01/22/18 K 4.5/01/22/18 BUN 23, BUN/Creatinine , 01/22/18 BUN 23/, BUN/Creatinine , 01/22/18/01/22/18 Creatinine 1.03 Medications:Lopressor, Lasix, Zestril SUMMARY: SCINTIGRAPHIC RESULTS Perfusion Defect Size (% LV) 5% Total 5% Ischemia 0% Scar Left Ventricular Perfusion Results There is a mild apical perfusion defect during stress which improves with rest imaging. Gated SPECT Results The post stress left ventricular ejection fraction is 40% with hypokinesis of all hypoperfused blanc Resting EF 50 % Left ventricular end-diastolic volume is 130 ml; end-systolic volume is 78 ml. The left ventricle is of normal size at stress and rest. The right ventricle is of normal size with normal wall motion. Conclusion Abnormal regadenoson Tc-99m tetrofosmin myocardial perfusion study compatible with ischemia in the distal left anterior descending coronary artery vascular territory. The LVEF is low normal at rest and mildly depressed post stress. . post stress drop of LVEF and possibly Transient cavitydilation Comments The study results indicate a intermediate (1%-2%) annual risk for a cardiac or non-fatal myocardial infarction. Study Quality/Artifacts The study quality is good. Comparison to Previous Study None available. STRESS: Baseline Vital Signs: Intervention: Regadenoson 0.4mg/5ml IV over 10 seconds followed by radiotracer injection and 5ml saline flush ECG: Normal Sinus Rhythm HR: 57 BP: 129/64 Stress Test Results: Target HR: 124 Symptoms and Complications: Signed 01/23/2018 1:53:00 PM Patricia Nam MD Performing Organization Address City/State/[facility] Phone Number [facility] [address] [place] [phone] Us carotid duplex (01/23/2018 7:35 AM [facility]) Narrative Performed At [facility] Vascular Ultrasound Laboratory Carotid Artery Duplex Report [address] [facility] [address], [place] [id number] For quality specialist purposes, the categorization of the degree of the stenosis of this exam is based on criteria described in the IAC carotid stenosis grading white paper( www.intersocietal.org/Vascular) and Flynn Caraballo., Kayla Herbert., et al. Carotid artery stenosis: jimenez-scale and Doppler US diagnosis--Society of Radiologists in Ultrasound Consensus Conference. Radiology. 2003 Nov; 229(2):340-6. Pat.Name:TACHO CASTILLO [id number] .Date: 01/23/2018Refer.MD:BUCK GONZALEZ MD Exam Time: 7:10:00 AMStudy Type:Carotid Height:81inDOBAge: 1945,72Y Sex: MALESonogrphr: Perry Callahan, RVS Pat. Stat.:Inpatient TapeVol: , CPT - 4: 57845 Echo Event ID:[id number] Order ID:[id number] Reason for Study:Carotid artery disease; PMHx of DM, HTN, [place], CAD s/p x3 CABG in 2005, skin cancer, CKD2 Procedures:Colorflow, Grayscale/2D, Pulsed wave Doppler Race:C SUMMARY: PHYSICAL ASSESSMENT BloodPulsesCarotid Pressure Carotid TemporalBruit Right IV ++0 Left 129/64 ++0 CAROTID ARTERY SCAN RIGHT:There is scattered hard plaquein the common carotid artery. There is hard and calcified plaque noted in the bulb extending into the proximal internal and external carotid artery.Colorflow is disturbed. LEFT: There is scattered hard plaquein the common carotid artery. There is hard and calcified plaque noted in the bulb extending into the proximal internal and external carotid artery.Colorflow is normal. PRELIMINARY FINDINGS 1.50- 69% stenosis in the bulb and right internal carotid artery. 2.<50%stenosis in the bulb and left internal carotid artery. 3.<50% stenosis in the external carotid artery, bilaterally. 4. Non-stenotic plaque in the common carotid artery,bilaterally. PHYSICIAN INTERPRETATION Bilateral carotid duplex examination demonstrated atherosclerotic plaques in the bulbs/ CCAs. 50- 69% stenosis in the bulb and right internal carotid artery. <50%stenosis in the bulb and left internal carotid artery. Both vertebral arteries are antegrade. Carotid Findings:RightLeft Verteb.Flw AntegradeAntegrade Subclavian TriphasicTriphasic MEASUREMENTS: DOPPLER Right CCA Dist CCA Dist PSV70.3 cm/sCCA Dist EDV16.8 cm/s Right CCA Mid CCA Mid PSV 80.7 cm/sCCA Mid EDV 11.6 cm/s Right CCA Prox CCA Prox PSV70.3 cm/sCCA Prox EDV 9 cm/s Right ECA Prox ECA Prox PSV 173 cm/sECA Prox EDV 0 cm/s Right ICA Dist ICA Dist PSV71.4 cm/Miguel nAgel Dist EDV16.5 cm/s Right ICA Mid ICA Mid PSV 66.5 cm/Miguel Angel Mid EDV 11.6 cm/s Right ICA Prox ICA Prox PSV 135 cm/Miguel Angel Prox EDV16 cm/s Right Vertebral Vertebral PSV 64.9 cm/sVertebral EDV 14.9 cm/s Right Subclavian Subclavian PSV77.7 cm/sSubclavian EDV 0 cm/s Left CCA Dist CCA Dist PSV93.5 cm/sCCA Dist EDV11.1 cm/s Left CCA Mid CCA Mid QTL431 cm/sCCA Mid EDV 16 cm/s Left CCA Prox CCA Prox PSV 106 cm/sCCA Prox EDV16 cm/s Left ECA Prox ECA Prox PSV 131 cm/sECA Prox EDV 0 cm/s Left ICA Dist ICA Dist PSV56.7 cm/Miguel Angel Dist EDV16.3 cm/s Left ICA Mid ICA Mid PSV 63.7 cm/Miguel Angel Mid EDV 12.4 cm/s Left ICA Prox ICA Prox PSV82.2 cm/Miguel Angel Prox EDV17.6 cm/s Left Vertebral Vertebral PSV 49 cm/sVertebral EDV0 cm/s Left Subclavian Subclavian PSV 134 cm/sSubclavian EDV 0 cm/s Right ICA/CCA Ratio ICA/CCA PSV 1.67 Left ICA/CCA Ratio ICA/CCA PSV0.822 Signed 01/23/2018 07:56 AM Brandon Maxwell MD, RPVI Procedure Note Interface, Radiology Results In - 01/23/2018 7:58 AM [facility] Vascular Ultrasound Laboratory Carotid Artery Duplex Report [address] [facility], [place] [address], [place] [address] For quality specialist purposes, the categorization of the degree of the stenosis of this exam is based on criteria described in the IAC carotid stenosis grading white paper( www.intersocietal.org/Vascular) and Flynn Caraballo., Nina Herbert, et al. Carotid artery stenosis: jimenez-scale and Doppler US diagnosis--Society of Radiologists in Ultrasound Consensus Conference. Radiology. 2003 Jan; 229(2):340-6. Pat.Name: TACHO CASTILLO Pat.ID: [id number] .Date: 01/23/2018 Refer.MD: BUCK GONZALEZ MD Exam Time: 7:10:00 AM Study Type:Carotid Height: 81in Age: 103/05/1945,72Y Sex: MALE Sonogrphr: FRANSISCO Elias Pat. Stat.:Inpatient Tape Vol: , CPT - 4: 58848 Echo Event ID:[id number] Order ID: [id number] Reason for Study:Carotid artery disease; PMHx of DM, HTN, [place], CAD s/p x3 CABG in 2005, skin cancer, CKD2 Procedures:Colorflow, Grayscale/2D, Pulsed wave Doppler Race: C SUMMARY: PHYSICAL ASSESSMENT Blood Pulses Carotid Pressure Carotid Temporal Bruit Right IV + + 0 Left 129/64 + + 0 CAROTID ARTERY SCAN RIGHT: There is scattered hard plaque in the common carotid artery. There is hard and calcified plaque noted in the bulb extending into the proximal internal and external carotid artery. Colorflow is disturbed. LEFT: There is scattered hard plaque in the common carotid artery. There is hard and calcified plaque noted in the bulb extending into the proximal internal and external carotid artery. Colorflow is normal. PRELIMINARY FINDINGS 1. 50- 69% stenosis in the bulb and right internal carotid artery. 2. <50% stenosis in the bulb and left internal carotid artery. 3. <50% stenosis in the external carotid artery, bilaterally. 4. Non-stenotic plaque in the common carotid artery, bilaterally. PHYSICIAN INTERPRETATION Bilateral carotid duplex examination demonstrated atherosclerotic plaques in the bulbs/ CCAs. 50- 69% stenosis in the bulb and right internal carotid artery. <50% stenosis in the bulb and left internal carotid artery. Both vertebral arteries are antegrade. Carotid Findings: Right Left Verteb.Flw Antegrade Antegrade Subclavian Triphasic Triphasic MEASUREMENTS: DOPPLER Right CCA Dist CCA Dist PSV 70.3 cm/s CCA Dist EDV 16.8 cm/s Right CCA Mid CCA Mid PSV 80.7 cm/s CCA Mid EDV 11.6 cm/s Right CCA Prox CCA Prox PSV 70.3 cm/s CCA Prox EDV 9 cm/s Right ECA Prox ECA Prox PSV 173 cm/s ECA Prox EDV 0 cm/s Right ICA Dist ICA Dist PSV 71.4 cm/s ICA Dist EDV 16.5 cm/s Right ICA Mid ICA Mid PSV 66.5 cm/s ICA Mid EDV 11.6 cm/s Right ICA Prox ICA Prox PSV 135 cm/s ICA Prox EDV 16 cm/s Right Vertebral Vertebral PSV 64.9 cm/s Vertebral EDV 14.9 cm/s Right Subclavian Subclavian PSV 77.7 cm/s Subclavian EDV 0 cm/s Left CCA Dist CCA Dist PSV 93.5 cm/s CCA Dist EDV 11.1 cm/s Left CCA Mid CCA Mid PSV 100 cm/s CCA Mid EDV 16 cm/s Left CCA Prox CCA Prox PSV 106 cm/s CCA Prox EDV 16 cm/s Left ECA Prox ECA Prox PSV 131 cm/s ECA Prox EDV 0 cm/s Left ICA Dist ICA Dist PSV 56.7 cm/s ICA Dist EDV 16.3 cm/s Left ICA Mid ICA Mid PSV 63.7 cm/s ICA Mid EDV 12.4 cm/s Left ICA Prox ICA Prox PSV 82.2 cm/s ICA Prox EDV 17.6 cm/s Left Vertebral Vertebral PSV 49 cm/s Vertebral EDV 0 cm/s Left Subclavian Subclavian PSV 134 cm/s Subclavian EDV 0 cm/s Right ICA/CCA Ratio ICA/CCA PSV 1.67 Left ICA/CCA Ratio ICA/CCA PSV 0.822 Signed 01/23/2018 07:56 AM Brandon Maxwell MD, RPVI Performing Organization Address City/State/Zipcode Phone Number [facility] [address] [place] [address] CT Lumbar Spine W Contrast (01/22/2018 11:43 AM [facility]) Narrative Performed At EXAMINATION: CT LUMBAR SPINE W CONTRAST RADIANT CLINICAL HISTORY: back pain COMPARISON:None TECHNIQUE: Axial contrast enhanced images of lumbar spine was performed with coronal sagittal reconstruction algorithms. CT imaging was performed with iterative reconstruction technique and/or automated exposure control to reduce radiation dose. FINDINGS: 5 lumbar type vertebral bodies with the last fully formed disc at L5-S1. Vertebral body heights are maintained. No fracture identified. Severe intervertebral disc space narrowing at L2-L3 and L3-L4 with endplate sclerosis, moderate anterior osteophyte formation and mild retrolisthesis at these levels. Mild to moderate anterior osteophyte formation of the remainder of the lumbar and lower thoracic spine. Mild degenerative changes of the sacroiliac joints. Extensive vascular calcifications. Right convex lumbar curvature with right lateral subluxation of L3 on L4 measuring 8 mm. Axial images through the disc spaces demonstrate the following: L1-L2: Diffuse disc bulge, eccentric to the right resulting in moderate right lateral recess narrowing and mild spinal canal stenosis. Mild bilateral facet hypertrophy. Patent left neural foramen. Mild right neural foraminal narrowing. L2-L3: Diffuse posterior disc bulge and mild prominence of the posterior epidural fat with moderate spinal canal and lateral recess narrowing. Severe left and mild right neural foraminal stenosis. L3-L4: Large partially calcified left central disc extrusion measuring 7 mm in AP dimension with 10 mm superior migration resulting in severe spinal canal and lateral recess stenosis. Moderate bilateral facet hypertrophy. Severe left and moderate to severe right neural foraminal narrowing. L4-L5: Mild posterior disc bulge and prominence of the posterior epidural fat with mild bilateral facet hypertrophy resulting in moderate spinal canal stenosis. Mild right and moderate left neural foraminal narrowing. L5-S1: Mild posterior disc bulge without spinal canal stenosis. Mild bilateral facet hypertrophy. Patent bilateral foramina. IMPRESSION: Advanced degenerative changes of the lumbar spine with chronic large disc extrusion at L3-L4 resulting in severe spinal canal stenosis. Additional degenerative changes are detailed above. [id number] Procedure Note Hm Interface, Radiology Results Incoming - 01/22/2018 12:56 PM [facility] EXAMINATION: CT LUMBAR SPINE W CONTRAST CLINICAL HISTORY: back pain COMPARISON: None TECHNIQUE: Axial contrast enhanced images of lumbar spine was performed with coronal sagittal reconstruction algorithms. CT imaging was performed with iterative reconstruction technique and/or automated exposure control to reduce radiation dose. FINDINGS: 5 lumbar type vertebral bodies with the last fully formed disc at L5-S1. Vertebral body heights are maintained. No fracture identified. Severe intervertebral disc space narrowing at L2-L3 and L3-L4 with endplate sclerosis, moderate anterior osteophyte formation and mild retrolisthesis at these levels. Mild to moderate anterior osteophyte formation of the remainder of the lumbar and lower thoracic spine. Mild degenerative changes of the sacroiliac joints. Extensive vascular calcifications. Right convex lumbar curvature with right lateral subluxation of L3 on L4 measuring 8 mm. Axial images through the disc spaces demonstrate the following: L1-L2: Diffuse disc bulge, eccentric to the right resulting in moderate right lateral recess narrowing and mild spinal canal stenosis. Mild bilateral facet hypertrophy. Patent left neural foramen. Mild right neural foraminal narrowing. L2-L3: Diffuse posterior disc bulge and mild prominence of the posterior epidural fat with moderate spinal canal and lateral recess narrowing. Severe left and mild right neural foraminal stenosis. L3-L4: Large partially calcified left central disc extrusion measuring 7 mm in AP dimension with 10 mm superior migration resulting in severe spinal canal and lateral recess stenosis. Moderate bilateral facet hypertrophy. Severe left and moderate to severe right neural foraminal narrowing. L4-L5: Mild posterior disc bulge and prominence of the posterior epidural fat with mild bilateral facet hypertrophy resulting in moderate spinal canal stenosis. Mild right and moderate left neural foraminal narrowing. L5-S1: Mild posterior disc bulge without spinal canal stenosis. Mild bilateral facet hypertrophy. Patent bilateral foramina. IMPRESSION: Advanced degenerative changes of the lumbar spine with chronic large disc extrusion at L3-L4 resulting in severe spinal canal stenosis. Additional degenerative changes are detailed above. [id number] Performing Organization Address City/[facility]/Zipcode Phone Number [facility] [address] [place] [phone] Urinalysis screen and microscopy, with reflex to culture (01/21/2018 12:50 PM [facility] [facility]) Specimen site Catheterized [facility] Color, UA Straw [facility] Appearance, UA Clear [facility] Specific gravity, UA 1.012 1.001 - 1.035 [facility] pH, UA 7.0 5.0 - 8.5 [facility] Protein, UA Negative Negative [facility] Glucose, UA 1+ (A) Negative [facility] Ketones, UA Negative Negative [facility] Bilirubin, UA Negative Negative [facility] Blood, UA Negative Negative [facility] Nitrite, UA Negative Negative [facility] Urobilinogen, UA 4.0 (A) <2.0 [facility] Leukocyte esterase, UA Negative Negative [facility] WBC, UA 1 0 - 1 /HPF [facility] RBC, UA <1 0 - 5 /HPF [facility] Bacteria, UA None seen None seen [facility] Yeast, UA None seen [facility] Yeast with pseudohyphae, UA None seen [facility] Hyaline casts, UA 1 /LPF [facility] Specimen Urine Performing Organization Address City/[facility]/Zipcode Phone Number [facility] DEPARTMENT OF PATHOLOGY AND [address] [place] [phone] [address] Urine culture (01/21/2018 12:49 PM [facility]) Urine culture SEE COMMENTComment: Bacteriuria [facility] screen negative. Performing Organization Address City/[facility]/Zipcode Phone Number [facility] DEPARTMENT OF PATHOLOGY AND [address] [place] [phone] [address] Blood culture, aerobic & anaerobic (01/21/2018 11:34 AM [facility])Only the most recent of2 resultswithin the time period is included. Blood culture isolate No growth after 5 days of incubation. [facility] Comment: HOSPITAL Specimen Information Specimen Source: Blood Specimen Site: Hand, right Specimen Blood - Hand, right Performing Organization Address City/State/Zipcode Phone Number [facility] DEPARTMENT OF PATHOLOGY AND [address] [place] [address] [facility] [address] [place] [address] Echocardiogram complete w contrast and 3D if needed (01/21/2018 7:37 AM [facility] [facility]) Narrative Performed At [facility] Echocardiography Report [address], [place] [address] Pat.Name:TACHO CASTILLO RPat.ID:[id number] .Date: 01/21/2018Refer.MD:KUN OLMOS MD Exam Time: 7:16:00 AMStudy Type:Routine Echo Height:69inWeight: 180lb BSA: 1.98 m2 DOBAge:1945,72Y Sex: MALEBP:181/79 HR:83 bpmSonogrphr: Frederic Boyle RDCS Pat. Stat.:Inpatient Room:[facility] Study Status:Final Echo Event ID:[id number] Order ID:[id number] Reason for Study:HEART FAILURE History / Clinical:Coronary artery disease, Diabetes, Hyperlipidemia, Hypertension Procedures:2D Echo, Colorflow Doppler, Strain Race:C SUMMARY: There is severe concentric LV hypertrophy. LV EF is lower limits of normal. Reduced Global Long Strain to -12.2%. LA volume is severely enlarged. RA volume is moderately enlarged. Diastolic dysfunction Grade I (Mild): Impaired relaxation with normal LV filling pressures. Insufficient TR jet to estimate PA systolic pressure. However, PA diastolic pressure estimate is FINDINGS: LV: LV size is normal. There is severe concentric LV hypertrophy.LV EF is lower limits of normal. Overall wall motionis normal. Reduced Global Long Strain to -12.2%. EstimatedEF is 50-54%. RV: RV size is normal. RV systolic function is normal. LA: LA volume is severely enlarged. RA: RA volume is moderately enlarged. AO: Aortic root diameter is normal. REBEKAH: No pericardial effusion. AV: Focal calcification of AV leaflets. Trivial aortic valve stenosis. MV: No structural MV abnormalities noted. PV: No structural PV abnormalities noted. A trace of pulmonic regurgitation. TV: No structural TV abnormalities noted. Byrd: Diastolic dysfunction Grade I (Mild): Impaired relaxation withnormal LV filling pressures. Other:Insufficient TR jet to estimate PA systolic pressure. However,PA diastolic pressure estimate is RAPof 5mmHg. MEASUREMENTS: 2D Parasternal Long Irene LVOT 2.1 cmLA Ds3.8 cm LVIDd4.3 cmIndex2.2 cm/m Ao An2.2 cm LVIDs3.5 cmAo Rtd 3.7 cm Index1.9 cm/m LV%fs 18.6 % LV Djdh348.3 g(122-174) IVSd 1.8 cmLVM Gmdub675.7 g/m2 LVPWd1.6 cmRWT0.7 LA Sng Plane LA Area 29.9 cm2(8.8-23.4) LA Vol 110.7 ml Index55.9 ml/m LA LngAx 6.6 cm RA Sng Plane RA Area 24.8 cm2(8.3-19.5) RA Vol80.9 ml Index40.9 ml/m RA LngAx 6.4 cm DOPPLER LVOT Stroke Vol LVOT 2.1 cmLVOT CO5.6 l/min LVOT TVI19.9 cmLVOT CI2.8 l/m/m2 LVOT Tm294 dgghEC86 bpm LVOT SV 68.9 ml AV For Flow/Valve Assess AV pkVel 195.6 cm/s (100-170) AV ET253 msec AV mnVel 111.1 cm/Munira AC/ET 0.2 AV pkPG 15.3 mmHgAV TVI28.1 cm AV Mean G6.7 mmHgAVpkAcRt 5823.7 cm/s2 AV AC 51 msec (83-118) Signed 01/21/2018 10:39 AM Sherman Ramirez M.D. Procedure Note Interface, Radiology Results In - 01/21/2018 10:39 AM [facility] Echocardiography Report [address] [place] [address] Pat.Name: TACHO CASTILLO Pat.ID: [id number] St.Date: 01/21/2018 Refer.MD: KUN OLMOS MD Exam Time: 7:16:00 AM Study Type:Routine Echo Height: 69in Weight: 180lb BSA: 1.98 m2 Age: 103/05/1945,72Y Sex: MALE BP: 181/79 HR: 83 bpm Sonogrphr: Frederic Boyle RDCS Pat. Stat.:[facility] Study Status:Final Echo Event ID:[id number] Order ID: [id number] Reason for Study:HEART FAILURE History / Clinical:Coronary artery disease, Diabetes, Hyperlipidemia, Hypertension Procedures:2D Echo, Colorflow Doppler, Strain Race: C SUMMARY: There is severe concentric LV hypertrophy. LV EF is lower limits of normal. Reduced Global Long Strain to -12.2%. LA volume is severely enlarged. RA volume is moderately enlarged. Diastolic dysfunction Grade I (Mild): Impaired relaxation with normal LV filling pressures. Insufficient TR jet to estimate PA systolic pressure. However, PA diastolic pressure estimate is FINDINGS: LV: LV size is normal. There is severe concentric LV hypertrophy. LV EF is lower limits of normal. Overall wall motion is normal. Reduced Global Long Strain to -12.2%. Estimated EF is 50-54%. RV: RV size is normal. RV systolic function is normal. LA: LA volume is severely enlarged. RA: RA volume is moderately enlarged. AO: Aortic root diameter is normal. REBEKAH: No pericardial effusion. AV: Focal calcification of AV leaflets. Trivial aortic valve stenosis. MV: No structural MV abnormalities noted. PV: No structural PV abnormalities noted. A trace of pulmonic regurgitation. TV: No structural TV abnormalities noted. Byrd: Diastolic dysfunction Grade I (Mild): Impaired relaxation with normal LV filling pressures. Other: Insufficient TR jet to estimate PA systolic pressure. However, PA diastolic pressure estimate is RAP of 5mmHg. MEASUREMENTS: 2D Parasternal Long Irene LVOT 2.1 cm LA Ds 3.8 cm LVIDd 4.3 cm Index 2.2 cm/m Ao An 2.2 cm LVIDs 3.5 cm Ao Rtd 3.7 cm Index 1.9 cm/m LV%fs 18.6 % LV Mass 314.3 g (122-174) IVSd 1.8 cm LVM Index 158.7 g/m2 LVPWd 1.6 cm RWT 0.7 LA Sng Plane LA Area 29.9 cm2 (8.8-23.4) LA Vol 110.7 ml Index 55.9 ml/m LA LngAx 6.6 cm RA Sng Plane RA Area 24.8 cm2 (8.3-19.5) RA Vol 80.9 ml Index 40.9 ml/m RA LngAx 6.4 cm DOPPLER LVOT Stroke Vol LVOT 2.1 cm LVOT CO 5.6 l/min LVOT TVI 19.9 cm LVOT CI 2.8 l/m/m2 LVOT Tm 294 msec HR 81 bpm LVOT SV 68.9 ml AV For Flow/Valve Assess AV pkVel 195.6 cm/s (100-170) AV ET 253 msec AV mnVel 111.1 cm/s AV AC/ET 0.2 AV pkPG 15.3 mmHg AV TVI 28.1 cm AV Mean G 6.7 mmHg AVpkAcRt 5823.7 cm/s2 AV AC 51 msec (83-118) Signed 01/21/2018 10:39 AM Sherman Ramirez M.D. Performing Organization Address City/[facility] Phone Number [facility] [address] [place] [phone] Sedimentation rate (01/21/2018 4:00 AM [facility]) Sedimentation rate 26 (H) 0 - 10 mm/hr [facility] Specimen Blood Performing Organization Address [facility] Phone Number [facility] DEPARTMENT OF PATHOLOGY AND [address] [place] [phone] [place] [phone] C-reactive protein (01/21/2018 4:00 AM [facility]) CRP 11.89 (H) 0.00 - 0.50 mg/dL [facility] Specimen Plasma specimen Performing Organization Address [facility] Phone Number [facility] DEPARTMENT OF PATHOLOGY AND [address] [place] [phone] Thyroid stimulating hormone (01/21/2018 4:00 AM [employer]) TSH 1.46 0.27 - 4.20 uIU/mL [facility] Specimen Plasma specimen Performing Organization Address [facility] Cent[facility]ode Phone Number [facility] DEPARTMENT OF PATHOLOGY AND [address] [place] [phone] [address] T4, free (01/21/2018 4:00 AM [employer]) T4, free 1.4 0.9 - 1.7 ng/dL [facility] Specimen Plasma specimen Performing Organization Address [facility] Cent[facility]ode Phone Number [facility] DEPARTMENT OF PATHOLOGY AND [address] [place] [phone] [place] [address] Hemoglobin A1c (01/21/2018 4:00 AM [facility])Only the most recent of2 resultswithin the time period is included. Hemoglobin A1C 8.4 (H) 4.0 - 5.6 % [facility] Comment: HbA1c cutoffs for diagnosing diabetes: 4.0% - 5.6%=normal 5.7% - 6.4%=increased risk for diabetes (prediabetes) >=6.5%=diabetes Goals for glycemic control (ADA 2016) < 7.0%Target for non adults with diabetes. More or less stringent targets may be appropriate for individual patients. <7.5% Target for Children and adolescents with type 1 diabetes. Specimen Blood Performing Organization Address [facility] Centercode Phone Number [facility] DEPARTMENT OF PATHOLOGY AND [address] [place] [address] Folate RBC (group test) (01/21/2018 4:00 AM [facility]) RBC folate 1,126 499 - 1,504 ng/mL [facility] Specimen Blood Performing Organization Address City/[facility]ode Phone Number [facility] DEPARTMENT OF PATHOLOGY AND [address] [place] [address] Vitamin B12 level (01/21/2018 4:00 AM [facility]) Vitamin B12 1,136 (H) 211 - 946 pg/mL [facility] Comment: Significant overlap exists between normal and deficiency states. However, most patients with deficiencies will have Serum B12 <200 pg/mL. Specimen Serum Performing Organization Address [facility] Center[facility]ak Phone Number [facility] DEPARTMENT OF PATHOLOGY AND [address] [place] [address] PV duplex arterial lower extremity (01/20/2018 6:20 PM [facility]) Narrative Performed At [facility] Vascular Ultrasound Laboratory Lower Extremity Arterial Duplex Report [address] [place] [address].Name:TACHO CASTILLO [facility].ID:[id number] .Date: 01/20/2018Refer.MD:PHYSICIAN, EMERGENCY, MD Exam Time: 5:06:00 PMStudy Type:LE Arterial Height:81inDOBAge: 1945,72Y Sex: MALESonogrphr: Tim Walsh, RDMS, RVT Pat. Stat.:OutpatientRoom:ER 8 TapeVol: , [facility] - 4: 40269 Echo Event ID:[id number] Order ID:[id number] Reason for Study:Poor pulsation with edematous legs presents with leg weakness (bilateral), altered mental status, hyperkalemia, acute renal failure, type 2 diabetes with complication. Procedures:B-flow imaging, Colorflow, Grayscale/2D, Pulsed wave Doppler Race:C SUMMARY: DUPLEX SCAN OBSERVATIONS: RIGHT: Non-stenotic echogenicities noted in the common femoral artery (bright) , profunda (soft) and femoral artery (diffusely bright). Irregular, diffuse bright plaque noted in the right popliteal artery. Diffuse bright echogenic lumen noted throughout the posterior tibial, peroneal, anterior tibial, and peroneal arteries with no evidence of focally elevated velocities. Collaterals noted at the mid segment of the anterior tibial artery; distal anterior tibial artery not visualized. LEFT:Patency is noted in the left common femoral artery. Bright, non-stenotic echogenic material noted at the ostium of the profunda femoral artery. Bright echogenic material noted at the ostium of the femoral artery; mildly elevated velocities. Patency throughout femoral artery. Irregular bright echogenicities diffusely noted throughout the popliteal artery. Diffuse, bright echogenic lumen noted throughout the posterior tibial, peroneal, anterior tibial, and dorsalis pedis arteries.Colorflow is normal. PRELIMINARY FINDINGS: 1.Diffusely calcified arteries noted throughout with no evidence of hemodynamically significant stenosis. 2.< 50% stenosis noted in the right common femoral artery, profunda, femoral artery, and popliteal artery. 3.< 50% stenosis noted in the left ostium of the femoral artery. PHYSICIAN INTERPRETATION: Bilateral lower extremity arterial exam demonstrates diffusely calcified arteries noted throughout with no evidence of hemodynamically significant stenosis. Doppler Waveforms: RightLeft Common Fem TriphasicTriphasic Superficial FemTriphasicTriphasic PoplitealTriphasic Triphasic Posterior Tibial TriphasicTriphasic Dorsalis Pedis TriphasicTriphasic Anterior TibialTriphasicTriphasic MEASUREMENTS: DOPPLER Right LINUX DEVOPS ENGINEER prox LINUX DEVOPS ENGINEER prox PSV 126 cm/s LINUX DEVOPS ENGINEER Right LINUX DEVOPS ENGINEER Prox 60 degLeft LINUX DEVOPS ENGINEER Prox D60 deg Right SFA Prox SFA Prox PSV 107 cm/s SFA Right SFA Prox 60 degLeft SFA Mid Do60 deg Left SFA Dist D60 deg Right Pop Dist Pop Dist PSV 128 cm/s Popliteal Right [id number] degLeft Popliteal 60 deg Right Lfdwrduzt63 deg Right Pop Prox Pop Prox PSV 153 cm/s Right SEED ANALYSIS LABORATORY ASSISTANT Dist SEED ANALYSIS LABORATORY ASSISTANT Dist PSV93 cm/s Tibial Post Right Tibial Po60 degLeft Tibial Pos60 deg Left Tibial Pos60 deg Right SEED ANALYSIS LABORATORY ASSISTANT Prox SEED ANALYSIS LABORATORY ASSISTANT Prox PSV84.9 cm/sPTA Prox PSV 108 cm/s Tibial Art Right Tibial Ar 0 degLeft Tibial Art60 deg Left Tibial Art60 deg Left LINUX DEVOPS ENGINEER prox LINUX DEVOPS ENGINEER prox PSV 139 cm/s SFA Dist SFA Dist PSV97 cm/s Left SFA Mid SFA Mid XZH497 cm/s Left Pop Dist Pop Dist PSV 103 cm/s Left SEED ANALYSIS LABORATORY ASSISTANT Dist SEED ANALYSIS LABORATORY ASSISTANT Dist PSV77.1 cm/s SEED ANALYSIS LABORATORY ASSISTANT Prox SEED ANALYSIS LABORATORY ASSISTANT Prox PSV77 cm/s MILA Mid MILA Mid PSV 77 cm/s Left MILA Prox MILA Prox PSV89 cm/sATA Prox PSV89 cm/s Left Peroneal Mid Peroneal Mid PS95 cm/s Peroneal Left Peroneal M60 degLeft Peroneal P60 deg Left Peroneal Prox Peroneal Prox P87 cm/s Right LINUX DEVOPS ENGINEER Dist LINUX DEVOPS ENGINEER Dist PSV 126 cm/s Left LINUX DEVOPS ENGINEER Dist LINUX DEVOPS ENGINEER Dist PSV 139 cm/s Right Profunda Profunda PSV89 cm/s Left Profunda Profunda PSV90 cm/s Left SFA Prox SFA Prox PSV 214 cm/s Right SFA Mid SFA Mid JHV024 cm/s Right SFA Dist SFA Dist PSV 120 cm/s Left Pop Prox Pop Prox PSV 100 cm/s Right SEED ANALYSIS LABORATORY ASSISTANT Mid SEED ANALYSIS LABORATORY ASSISTANT Mid RKH866 cm/s Left SEED ANALYSIS LABORATORY ASSISTANT Mid SEED ANALYSIS LABORATORY ASSISTANT Mid PSV 99 cm/s Right SEED ANALYSIS LABORATORY ASSISTANT Distal SEED ANALYSIS LABORATORY ASSISTANT Distal PSV93 cm/s Left SEED ANALYSIS LABORATORY ASSISTANT Distal SEED ANALYSIS LABORATORY ASSISTANT Distal PSV77 cm/s Right Peroneal Prox Peroneal Prox P62 cm/s Right Peroneal Mid Peroneal Mid PS 116 cm/s Right MILA Prox MILA Prox PSV85 cm/s Right MILA Mid MILA Mid PSV 45 cm/s Left MILA Distal MILA Distal PSV55 cm/s Right DPA DPA PSV 57 cm/s Left DPA DPA PSV 57 cm/s Signed 01/20/2018 11:26 PM Brandon Maxwell MD, RPVI Procedure Note Interface, Radiology Results In - 01/20/2018 11:27 PM [facility] Vascular Ultrasound Laboratory Lower Extremity Arterial Duplex Report [address] [place] [address] Pat.Name: TACHO CASTILLO Pat.ID: [id number] .Date: 01/20/2018 Refer.MD: PHYSICIAN, EMERGENCY, MD Exam Time: 5:06:00 PM Study Type:LE Arterial Height: 81in Age: 103/05/1945,72Y Sex: MALE Sonogrphr: Tim Walsh RDMS, SHAILAT Pat. Stat.:Outpatient Room: ER 8 Tape Vol: [facility] - 4: 11590 Echo Event ID:[id number] Order ID: [id number] Reason for Study:Poor pulsation with edematous legs presents with leg weakness (bilateral), altered mental status, hyperkalemia, acute renal failure, type 2 diabetes with complication. Procedures:B-flow imaging, Colorflow, Grayscale/2D, Pulsed wave Doppler Race: C SUMMARY: DUPLEX SCAN OBSERVATIONS: RIGHT: Non-stenotic echogenicities noted in the common femoral artery (bright) , profunda (soft) and femoral artery (diffusely bright). Irregular, diffuse bright plaque noted in the right popliteal artery. Diffuse bright echogenic lumen noted throughout the posterior tibial, peroneal, anterior tibial, and peroneal arteries with no evidence of focally elevated velocities. Collaterals noted at the mid segment of the anterior tibial artery; distal anterior tibial artery not visualized. LEFT: Patency is noted in the left common femoral artery. Bright, non-stenotic echogenic material noted at the ostium of the profunda femoral artery. Bright echogenic material noted at the ostium of the femoral artery; mildly elevated velocities. Patency throughout femoral artery. Irregular bright echogenicities diffusely noted throughout the popliteal artery. Diffuse, bright echogenic lumen noted throughout the posterior tibial, peroneal, anterior tibial, and dorsalis pedis arteries. Colorflow is normal. PRELIMINARY FINDINGS: 1. Diffusely calcified arteries noted throughout with no evidence of hemodynamically significant stenosis. 2. < 50% stenosis noted in the right common femoral artery, profunda, femoral artery, and popliteal artery. 3. < 50% stenosis noted in the left ostium of the femoral artery. PHYSICIAN INTERPRETATION: Bilateral lower extremity arterial exam demonstrates diffusely calcified arteries noted throughout with no evidence of hemodynamically significant stenosis. Doppler Waveforms: Right Left Common Fem Triphasic Triphasic Superficial Fem Triphasic Triphasic Popliteal Triphasic Triphasic Posterior Tibial Triphasic Triphasic Dorsalis Pedis Triphasic Triphasic Anterior Tibial Triphasic Triphasic MEASUREMENTS: DOPPLER Right LINUX DEVOPS ENGINEER prox LINUX DEVOPS ENGINEER prox PSV 126 cm/s LINUX DEVOPS ENGINEER Right LINUX DEVOPS ENGINEER Prox 60 deg Left LINUX DEVOPS ENGINEER Prox D 60 deg Right SFA Prox SFA Prox PSV 107 cm/s SFA Right SFA Prox 60 deg Left SFA Mid Do 60 deg Left SFA Dist D 60 deg Right Pop Dist Pop Dist PSV 128 cm/s Popliteal Right Popliteal 60 deg Left Popliteal 60 deg Right Popliteal 60 deg Right Pop Prox Pop Prox PSV 153 cm/s Right SEED ANALYSIS LABORATORY ASSISTANT Dist SEED ANALYSIS LABORATORY ASSISTANT Dist PSV 93 cm/s Tibial Post Right Tibial Po 60 deg Left Tibial Pos 60 deg Left Tibial Pos 60 deg Right SEED ANALYSIS LABORATORY ASSISTANT Prox SEED ANALYSIS LABORATORY ASSISTANT Prox PSV 84.9 cm/s SEED ANALYSIS LABORATORY ASSISTANT Prox PSV 108 cm/s Tibial Art Right Tibial Ar 0 deg Left Tibial Art 60 deg Left Tibial Art 60 deg Left LINUX DEVOPS ENGINEER prox LINUX DEVOPS ENGINEER prox PSV 139 cm/s SFA Dist SFA Dist PSV 97 cm/s Left SFA Mid SFA Mid PSV 123 cm/s Left Pop Dist Pop Dist PSV 103 cm/s Left SEED ANALYSIS LABORATORY ASSISTANT Dist SEED ANALYSIS LABORATORY ASSISTANT Dist PSV 77.1 cm/s SEED ANALYSIS LABORATORY ASSISTANT Prox SEED ANALYSIS LABORATORY ASSISTANT Prox PSV 77 cm/s MILA Mid MILA Mid PSV 77 cm/s Left MILA Prox MILA Prox PSV 89 cm/s MILA Prox PSV 89 cm/s Left Peroneal Mid Peroneal Mid PS 95 cm/s Peroneal Left Peroneal M 60 deg Left Peroneal P 60 deg Left Peroneal Prox Peroneal Prox P 87 cm/s Right LINUX DEVOPS ENGINEER Dist LINUX DEVOPS ENGINEER Dist PSV 126 cm/s Left LINUX DEVOPS ENGINEER Dist LINUX DEVOPS ENGINEER Dist PSV 139 cm/s Right Profunda Profunda PSV 89 cm/s Left Profunda Profunda PSV 90 cm/s Left SFA Prox SFA Prox PSV 214 cm/s Right SFA Mid SFA Mid PSV 128 cm/s Right SFA Dist SFA Dist PSV 120 cm/s Left Pop Prox Pop Prox PSV 100 cm/s Right SEED ANALYSIS LABORATORY ASSISTANT Mid SEED ANALYSIS LABORATORY ASSISTANT Mid PSV 114 cm/s Left SEED ANALYSIS LABORATORY ASSISTANT Mid SEED ANALYSIS LABORATORY ASSISTANT Mid PSV 99 cm/s Right SEED ANALYSIS LABORATORY ASSISTANT Distal SEED ANALYSIS LABORATORY ASSISTANT Distal PSV 93 cm/s Left SEED ANALYSIS LABORATORY ASSISTANT Distal SEED ANALYSIS LABORATORY ASSISTANT Distal PSV 77 cm/s Right Peroneal Prox Peroneal Prox P 62 cm/s Right Peroneal Mid Peroneal Mid PS 116 cm/s Right MILA Prox MILA Prox PSV 85 cm/s Right MILA Mid MILA Mid PSV 45 cm/s Left MILA Distal MILA Distal PSV 55 cm/s Right DPA DPA PSV 57 cm/s Left DPA DPA PSV 57 cm/s Signed 01/20/2018 11:26 PM Brandon Maxwell MD, RPVI Performing Organization Address City/State/Zipcode Phone Number [facility] [address] [place] [address] PV duplex venous lower extremity (01/20/2018 5:20 PM [employer]) Narrative Performed At [facility] Vascular Ultrasound Laboratory Lower Extremity Venous Report [id number] [address] Pat.Name:TACHO CASTILLO RPat.ID:[id number] .Date: 01/20/2018Refer.MD:PHYSICIAN, EMERGENCY, Exam Time: 4:37:00 PMStudy Type:LE Venous Height:81inDOBAge: 1945,72Y Sex: MALESonogrphr: Tim Walsh, RDMS, RVT Pat. Stat.:OutpatientRoom:ER 8 TapeVol: , CPT - 4: 12888 Echo Event ID:[id number] Order ID:[id number] Reason for Study:Bilateral lower extremity edema. Procedures:Colorflow, Grayscale/2D, Pulsed wave Doppler Race:C SUMMARY: DUPLEX SCAN OBSERVATIONS Deep VeinsSuperficial Veins RightLeft RightLeft GSV (prox) NormalNormal CFV Normal Normal (above knee) Femoral Normal Normal GSV (dist) Normal Normal Profunda Normal Normal (below knee) Popliteal Normal Normal PT (prox) Normal NormalSSV Normal Normal PT (dist) Normal Normal Peroneal Normal Normal RIGHT:There is normal compressibility with no evidence of echogenic material noted within the lumen of the visualized veins.Colorflow and Doppler signals are normal. Heterogeneous, well-defined, irregular shaped, hypoechoic/anechoic structure noted in the right popliteal fossa measuring 4.65 x 1.12 x 3.25 cm (Long x AP x Trans); colorflow and Doppler signals are absent. LEFT: There is normal compressibility with no evidence of echogenic material noted within the lumen of the visualized veins. Colorflow and Doppler signals are normal. Heterogeneous, well-defined, irregular shaped, hypoechoic/anechoic structure noted in the left popliteal fossa measuring 4.77 x 1.59 x 2.86 cm (Long x AP x Trans); colorflow and Doppler signals are absent. PRELIMINARY FINDINGS 1.Normal venous duplex exam of the visualized veins. 2.Incidental finding of non-vascular, hypoechoic/anechoic, heterogeneous, well-defined structures noted in the popliteal fossae, bilaterally. PHYSICIAN INTERPRETATION Venous examination of the both lower extremities demonstrated no evidence of venous thrombosis in the visualized veins.Bilateral popliteal cysts. Signed 01/20/2018 11:16 PM Brandon Maxwell MD, RPVI Procedure Note Interface, Radiology Results In - 01/20/2018 11:18 PM [facility] Vascular Ultrasound Laboratory Lower Extremity Venous Report [id number] [address] Pat.Name: TACHO CASTILLO Pat.ID: [id number] .Date: 01/20/2018 Refer.MD: PHYSICIAN, EMERGENCY, MD Exam Time: 4:37:00 PM Study Type:LE Venous Height: 81in Age: 103/05/1945,72Y Sex: MALE Sonogrphr: Tim Walsh RDMS, RVT Pat. Stat.:Outpatient Room: ER 8 Tape Vol: , CPT - 4: 96594 Echo Event ID:[id number] Order ID: [id number] Reason for Study:Bilateral lower extremity edema. Procedures:Colorflow, Grayscale/2D, Pulsed wave Doppler Race: C SUMMARY: DUPLEX SCAN OBSERVATIONS Deep Veins Superficial Veins Right Left Right Left GSV (prox) Normal Normal CFV Normal Normal (above knee) Femoral Normal Normal GSV (dist) Normal Normal Profunda Normal Normal (below knee) Popliteal Normal Normal PT (prox) Normal Normal SSV Normal Normal PT (dist) Normal Normal Peroneal Normal Normal RIGHT: There is normal compressibility with no evidence of echogenic material noted within the lumen of the visualized veins. Colorflow and Doppler signals are normal. Heterogeneous, well-defined, irregular shaped, hypoechoic/anechoic structure noted in the right popliteal fossa measuring 4.65 x 1.12 x 3.25 cm (Long x AP x Trans); colorflow and Doppler signals are absent. LEFT: There is normal compressibility with no evidence of echogenic material noted within the lumen of the visualized veins. Colorflow and Doppler signals are normal. Heterogeneous, well-defined, irregular shaped, hypoechoic/anechoic structure noted in the left popliteal fossa measuring 4.77 x 1.59 x 2.86 cm (Long x AP x Trans); colorflow and Doppler signals are absent. PRELIMINARY FINDINGS 1. Normal venous duplex exam of the visualized veins. 2. Incidental finding of non-vascular, hypoechoic/anechoic, heterogeneous, well-defined structures noted in the popliteal fossae, bilaterally. PHYSICIAN INTERPRETATION Venous examination of the both lower extremities demonstrated no evidence of venous thrombosis in the visualized veins. Bilateral popliteal cysts. Signed 01/20/2018 11:16 PM Brandon Maxwell MD, RPVI Performing Organization Address City/State/Zipcode Phone Number [facility] [address] [place] [address] Orthostatic vital signs (02/18/2017 3:25 PM [employer])after 02/04/2017 Insurance Payer Benefit Plan / Group Subscriber ID Type Phone Address MEDICARE MEDICARE PART A AND B xxxxxxxxxxx Medicare [place], [place] AARP AARP SUPPLEMENT xxxxxxxxxx Commercial Advance Directives Patient has advance care planning documents on file. For more information, please contact:Miguel [id number] [place] [address]
--- OUTSIDE RECORDS SUMMARY | 2018-02-05 19:23 | XMS REPORT ---
:1945 [facility] [address] [place] [address] Care Team Providers Name Role Phone Unavailable Unavailable Unavailable Payers Payer Name Policy Type Policy Number Effective Date Expiration Date Problems This patient has no known problems. Allergies, Adverse Reactions, Alerts Allergy Allergy Status Severity Reaction(s) Onset Inactive Treating Comments Name Type Date Date Clinician No Known DA Active U 2018-01 Allergies - 00:00:0 0 No Known DA Active U 2018-01 Allergies - 00:00:0 0 No Known DA Active U 2017-12 Allergies - 00:00:0 0 No Known DA Active U 2017-12 Allergies - 00:00:0 0 No Known DA Active U 2017-10 Allergies - 00:00:0 0 Medications This patient has no known medications.
[2018-02-05] MEDS ORDERED: GLUCAGON 1 MG/VIAL IM PRN (19:39)
[2018-02-05] MEDS ORDERED: D50W 25 GM/50 ML SYRINGE IV PRN (19:39)
[2018-02-05 19:56] VITALS: BMI 24.9
[2018-02-05] MEDS ORDERED: TRAMADOL HCL 50 MG TAB PO PRN (20:41)
[2018-02-05] MEDS ORDERED: TRAZODONE 50 MG TABLET PO PRN (20:42)
[2018-02-05] MEDS ORDERED: VYTORIN PO SCH (21:00)
[2018-02-05] MEDS: MAGNESIUM OXIDE 400 MG TAB PO SCH (21:22)
[2018-02-05] MEDS: GABAPENTIN 100 MG CAP PO SCH (21:23)
[2018-02-05] MEDS: DOCUSATE NA/SENNA CONC 1 TAB PO PRN (21:46)
[2018-02-05] MEDS: HEPARIN 5000 UNIT/ML 1 ML VIAL SQ SCH (21:46)
[2018-02-05] MEDS: MELATONIN 5 MG TABLET PO PRN (21:47)
[2018-02-05] MEDS: CODEINE 30MG/APAP 300MG TAB PO PRN (21:47)
[2018-02-05 23:25] LABS: Urine Appearance CLEAR; Urine Bilirubin NEGATIVE (NEG); Urine Blood NEGATIVE (NEG); Urine Color YELLOW; Urine Glucose 2+ (NEG); Urine Protein NEGATIVE (NEG); Urine Specific Gravity 1.015 (1.005-1.030); Urine pH 5.5 (5.0-7.0)
[2018-02-06 00:25] LABS: Urine Bacteria <20 /HPF (NONE SEEN); Urine Culture Reflex Order NOT NEEDED; Urine RBC NONE SEEN /HPF (NONE SEEN)
--- NOTE | 2018-02-06 01:51 | FAST ---
SHIFT START DATE/TIME: 02/05/2018 19:00 (ONLINE MERCHANT) SHIFT END DATE/TIME: 02/06/2018 07:00 (ONLINE MERCHANT) NAME SKY SANDERS DATE OF : 1945 DATE OF ADMISSION: 02/05/2018 19:10 (ONLINE MERCHANT) PHONE: AGE: 72 SSN# [id number] GENDER: Male ENCOUNTER PHYSICIAN: Dr. Charles Sauceda M.D. 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 EATING: Activity did not occur on this shift EATING - SCORE: 0-UNK GROOMING: Activity did not occur on this shift GROOMING - SCORE: 0-UNK BATHING: Activity did not occur on this shift BATHING - SCORE: 0-UNK DRESSING - UPPER BODY: Patient is not dressing in public clothing ARTICLES SCORE Total number of steps: 0 DRESSING - UPPER BODY - SCORE: 0-UNK DRESSING - LOWER BODY: Patient is not dressing in public clothing ARTICLES SCORE Total number of steps: 0 DRESSING - LOWER BODY - SCORE: 0-UNK TOILETING: TOILETING - STEP 1: Does the patient require the assistance of a person or device, or need extra time with toileting? Yes . TOILETING - STEP 2: Does the patient require the assistance of a helper? Yes. TOILETING - STEP 3: How much assistance does the patient require from the helper? Hands-on assistance from the helper TOILETING - STEP 4: Of the 3 tasks: 1) Adjusting clothing prior to use, 2) Cleansing of perineal area, 3) Adjusting clot pablo after use; How many tasks does the patient perform WITHOUT assistance of the helper? Three tasks with steadying assistance from the helper TOILETING - SCORE: 4-MIN BLADDER MANAGEMENT: BLADDER MANAGEMENT - STEP 1: Does the patient control the bladder completely and intentionally without equipment or devices or med ications, and is always continent? No. BLADDER MANAGEMENT - STEP 2: Does the patient require the assistance of a helper? Yes. BLADDER MANAGEMENT - STEP 3: How much assistance does the patient require from the helper? Only set-up of equipment - such as plac ing it within reach of the patient or emptying a device - to maintain either satisfactory voiding pat tern or managing an external device, such as an absorbent pad, ileal device, or catheter BLADDER MANAGEMENT - SCORE: 5-SUP BOWEL MANAGEMENT: Activity did not occur on this shift BOWEL MANAGEMENT - SCORE: 7-IND TRANSFERS: BED, CHAIR, WHEELCHAIR: Activity did not occur on this shift TRANSFERS: BED, CHAIR, WHEELCHAIR - SCORE: 0-UNK TRANSFERS: TOILET: Activity did not occur on this shift TRANSFERS: TOILET - SCORE: 0-UNK TRANSFERS: SHOWER: Activity did not occur on this shift TRANSFERS: SHOWER - SCORE: 0-UNK TRANSFERS: TUB: Activity did not occur on this shift TRANSFERS: TUB - SCORE: 0-UNK LOCOMOTION: WALK: Activity did not occur on this shift LOCOMOTION: WALK - SCORE: 0-UNK LOCOMOTION: WHEELCHAIR: Activity did not occur on this shift LOCOMOTION: WHEELCHAIR - SCORE: 0-UNK COMPREHENSION: COMPREHENSION: TYPE: Both COMPREHENSION - STEP 1: Does the patient require help from a person or device, or need extra time to understand complex and a bstract ideas (such as current events, finances, discharge planning, medical issues, relationships, e tc)? No. COMPREHENSION - STEP 2: Does the patient need extra time, require an assistive device (such as glasses for visual comprehensi on or a hearing aid for auditory comprehension) or does s/he have mild difficulty understanding compl ex and abstract information? Yes. COMPREHENSION - SCORE: 6-SON EXPRESSION EXPRESSION: TYPE: Both EXPRESSION - STEP 1: Does the patient require help from a person or device, or need extra time expressing complex and abst ract ideas (such as current events, finances, discharge planning, medical issues, relationships, etc) ? No. EXPRESSION - STEP 2: Does the patient need extra time, require an assistive device (such as augmentive communication syste m or a communication board), OR does s/he have mild difficulty expressing complex and abstract ideas (including mild dysarthria or mild word-find problems)? No. EXPRESSION - SCORE: 7-IND SOCIAL INTERACTION: SOCIAL INTERACTION - STEP 1: Does the patient require a helper to interact with others in social and therapeutic situations? No. SOCIAL INTERACTION - STEP 2: Does the patient need extra time in social situations, OR does s/he interact with staff, other patien ts, and family members ONLY in structured environments, OR does s/he require medication for social in teraction? Yes, patient needs extra time SOCIAL INTERACTION - SCORE: 6-SON PROBLEM SOLVING: PROBLEM SOLVING - STEP 1: Does the patient need help from a person or device, or need extra time to solve complex problems such as managing a checking account or confronting interpersonal problems? No. PROBLEM SOLVING - STEP 2: Does the patient require extra time to make decisions or solve problems, OR does s/he have slight dif ficulty reading, initiating, or self-correcting in unfamiliar situations? Yes, patient needs extra ti me. PROBLEM SOLVING - SCORE: 6-SON MEMORY: MEMORY - STEP 1: Does the patient need help from a person or device, or need extra time to remember frequently encount ered people, daily routines, and executing requests? No. MEMORY - STEP 2: Does the patient have slight difficulty recognizing frequently encountered people, daily routines, or executing requests without the need for repetition or using self-initiated or environmental cues to remember? Yes. MEMORY - SCORE: 6-SON SIGNATURE PANEL: The following modified sections: Eating - Score, Grooming - Score, Dressing - Upper Body - Score, Anatoly ssing - Lower Body - Score, Toileting - Score, Bladder Management - Score, Bowel Management - Score, Transfers: Bed, Chair, Wheelchair - Score, Transfers: Toilet - Score, Transfers: Shower - Score, Anaya sfers: Tub - Score, Locomotion: Walk - Score, Locomotion: Wheelchair - Score, Comprehension - Score, Expression - Score, Social Interaction - Score, Problem Solving - Score, Memory - Score were [electro nically] signed by Zully Humphrey CNA on SatFeb 06 2018 01:50:35 GMT-0600 (Central Standard Time)
[2018-02-06] MEDS: METOPROLOL XL 25 MG TAB PO SCH (05:33)
[2018-02-06] MEDS: PANTOPRAZOLE 40MG TABLET PO SCH (06:18)
[2018-02-06 06:52] LABS: Absolute Lymphocytes (CBC) 1.1 K/uL (0.7-4.9); Absolute Monocytes 0.6 K/uL (0.1-1.3); Absolute Neutrophil 5.1 K/uL (1.8-8.0); Basophils % 0.8 % (0-1.3); Eosinophils % 2.9 % (0-4.4); Hematocrit 34.3 % (39.6-49.0); Lymphocytes % 15.1 % (15.3-44.8); MCV 76.6 fL (80-100); MPV 10.2 fL (7.6-11.3); Monocytes % 8.6 % (3.3-12.3); RBC Red Blood Cell Count 4.48 M/uL (4.33-5.43)
[2018-02-06 07:14] LABS: Anisocytosis 1+; Blood Morphology Comment NOTED (NOT SEEN); Platelet Estimate ADEQ; Urine White Blood Cell Casts OK
[2018-02-06 07:18] LABS: Albumin 2.6 g/dL (3.4-5.0); Magnesium 2.4 mg/dL (1.8-2.4); Potassium 4.2 mmol/L (3.5-5.1)
[2018-02-06] MEDS: FUROSEMIDE 20 MG TABLET PO SCH ×2 (08:00→10:09)
[2018-02-06] MEDS: INSULIN LISPRO 100 UNIT/1 ML SQ SCH ×3 (08:00→17:00)
[2018-02-06] MEDS: NIFEDIPINE XL 30 MG TABLET PO SCH ×2 (08:00→10:03)
[2018-02-06] MEDS: HEPARIN 5000 UNIT/ML 1 ML VIAL SQ SCH ×2 (08:16→19:30)
[2018-02-06] MEDS: CODEINE 30MG/APAP 300MG TAB PO PRN ×3 (08:16→19:14)
[2018-02-06] MEDS: INSULIN GLARGINE 100 UNITS/ML SQ SCH (08:16)
[2018-02-06] MEDS: GABAPENTIN 100 MG CAP PO SCH ×3 (08:16→20:45)
[2018-02-06] MEDS: MAGNESIUM OXIDE 400 MG TAB PO SCH ×2 (08:17→19:14)
[2018-02-06] MEDS: TAMSULOSIN 0.4 MG SR CAP PO SCH (08:17)
[2018-02-06] MEDS: ASPIRIN EC 81 MG TAB PO SCH (08:17)
[2018-02-06] MEDS ORDERED: BISACODYL 10 MG RECTAL SUPP PR PRN (13:20)
--- NOTE | 2018-02-06 15:05 | RAD REPORT ---
EXAM DESCRIPTION: RAD - Abdomen 1 View (KUB) - 02/06/2018 2:23 pm CLINICAL HISTORY: Abdominal pain COMPARISON: None. FINDINGS: Bowel gas pattern is non-specific. No obstruction, free air or pneumatosis. No abnormal s tool volume. No suspicious calcifications seen. Bony degenerative changes are present in the lumbar s pine. IMPRESSION: Negative KUB examination for acute or suspicious finding.
--- NOTE | 2018-02-06 15:37 | FAST ---
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 Charles Sauceda M.D. 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 EATING: EATING - STEP 1: Does the patient require the assistance of a person or device, or need extra time when eating? Yes. EATING - STEP 2: Does the patient require the assistance of a helper? No, patient only requires an assistive device, O R s/he takes more than reasonable time to eat, OR there is a safety concern, OR s/he requires modifie d food consistency EATING - SCORE: 6-SON GROOMING: Comb/brush hair Oral care GROOMING - STEP 1: Does the patient require the assistance of a person or device, or need extra time when grooming? Yes. GROOMING - STEP 2: Does the patient require the assistance of a helper? No. The patient only requires an assistive devic e, OR takes more than reasonable time to groom, OR there is a concern for safety as the patient groom s GROOMING - SCORE: 6-SON BATHING: Activity did not occur on this shift BATHING - SCORE: 0-UNK DRESSING - UPPER BODY: Activity did not occur on this shift ARTICLES SCORE Total number of steps: 0 DRESSING - UPPER BODY - SCORE: 0-UNK DRESSING - LOWER BODY: Activity did not occur on this shift ARTICLES SCORE Total number of steps: 0 DRESSING - LOWER BODY - SCORE: 0-UNK TOILETING: TOILETING - STEP 1: Does the patient require the assistance of a person or device, or need extra time with toileting? Yes . TOILETING - STEP 2: Does the patient require the assistance of a helper? Yes. TOILETING - STEP 3: How much assistance does the patient require from the helper? Hands-on assistance from the helper TOILETING - STEP 4: Of the 3 tasks: 1) Adjusting clothing prior to use, 2) Cleansing of perineal area, 3) Adjusting clot pablo after use; How many tasks does the patient perform WITHOUT assistance of the helper? Two tasks TOILETING - SCORE: 3-MOD BLADDER MANAGEMENT: BLADDER MANAGEMENT - STEP 1: Does the patient control the bladder completely and intentionally without equipment or devices or med ications, and is always continent? No. BLADDER MANAGEMENT - STEP 2: Does the patient require the assistance of a helper? No, patient requires and independently uses an a ssistive device, such as a urinal, bedpan, bedside commode, catheter, absorbent pad, or collecting de vice BLADDER MANAGEMENT - SCORE: 6-SON BOWEL MANAGEMENT: Activity did not occur on this shift BOWEL MANAGEMENT - SCORE: 7-IND TRANSFERS: BED, CHAIR, WHEELCHAIR: TRANSFERS: BED, CHAIR, WHEELCHAIR - STEP 1: Does the patient require assitance of a person or device, or need extra time with bed, chair, or whee lchair transfers? Yes. TRANSFERS: BED, CHAIR, WHEELCHAIR - STEP 2: Does the patient require the assistance of a helper? Yes. TRANSFERS: BED, CHAIR, WHEELCHAIR - STEP 3: How much assistance does the patient require from the helper? Lifting of the legs TRANSFERS: BED, CHAIR, WHEELCHAIR - STEP 4: How many legs does the patient require the helper to lift? both legs TRANSFERS: BED, CHAIR, WHEELCHAIR - SCORE: 3-MOD TRANSFERS: TOILET: TRANSFERS: TOILET - STEP 1: Does the patient require the assistance of a person or device, or need extra time with toilet transfe rs? Yes. TRANSFERS: TOILET - STEP 2: Does the patient require the assistance of a helper? Yes. TRANSFERS: TOILET - STEP 3: How much assistance does the patient require from the helper? Patient performs half or more of the tr ansferring tasks TRANSFERS: TOILET - STEP 4: Does the patient need only incidental help such as contact guard or steadying during toilet transfer? No. Patient needs more than incidental help TRANSFERS: TOILET - SCORE: 3-MOD TRANSFERS: SHOWER: Activity did not occur on this shift TRANSFERS: SHOWER - SCORE: 0-UNK TRANSFERS: TUB: Activity did not occur on this shift TRANSFERS: TUB - SCORE: 0-UNK LOCOMOTION: WALK: Activity did not occur on this shift LOCOMOTION: WALK - SCORE: 0-UNK LOCOMOTION: WHEELCHAIR: Activity did not occur on this shift LOCOMOTION: WHEELCHAIR - SCORE: 0-UNK COMPREHENSION: COMPREHENSION: TYPE: Both COMPREHENSION - STEP 1: Does the patient require help from a person or device, or need extra time to understand complex and a bstract ideas (such as current events, finances, discharge planning, medical issues, relationships, e tc)? No. COMPREHENSION - STEP 2: Does the patient need extra time, require an assistive device (such as glasses for visual comprehensi on or a hearing aid for auditory comprehension) or does s/he have mild difficulty understanding compl ex and abstract information? Yes. COMPREHENSION - SCORE: 6-SON EXPRESSION EXPRESSION: TYPE: Both EXPRESSION - STEP 1: Does the patient require help from a person or device, or need extra time expressing complex and abst ract ideas (such as current events, finances, discharge planning, medical issues, relationships, etc) ? No. EXPRESSION - STEP 2: Does the patient need extra time, require an assistive device (such as augmentive communication syste m or a communication board), OR does s/he have mild difficulty expressing complex and abstract ideas (including mild dysarthria or mild word-find problems)? Yes. EXPRESSION - SCORE: 6-SON SOCIAL INTERACTION: SOCIAL INTERACTION - STEP 1: Does the patient require a helper to interact with others in social and therapeutic situations? No. SOCIAL INTERACTION - STEP 2: Does the patient need extra time in social situations, OR does s/he interact with staff, other patien ts, and family members ONLY in structured environments, OR does s/he require medication for social in teraction? Yes, patient needs extra time SOCIAL INTERACTION - SCORE: 6-SON PROBLEM SOLVING: PROBLEM SOLVING - STEP 1: Does the patient need help from a person or device, or need extra time to solve complex problems such as managing a checking account or confronting interpersonal problems? No. PROBLEM SOLVING - STEP 2: Does the patient require extra time to make decisions or solve problems, OR does s/he have slight dif ficulty reading, initiating, or self-correcting in unfamiliar situations? Yes, patient needs extra ti me. PROBLEM SOLVING - SCORE: 6-SON MEMORY: MEMORY - STEP 1: Does the patient need help from a person or device, or need extra time to remember frequently encount ered people, daily routines, and executing requests? No. MEMORY - STEP 2: Does the patient have slight difficulty recognizing frequently encountered people, daily routines, or executing requests without the need for repetition or using self-initiated or environmental cues to remember? Yes. MEMORY - SCORE: 6-SON SIGNATURE PANEL: The following modified sections: Eating - Score, Grooming - Score, Bathing - Score, Dressing - Upper Body - Score, Dressing - Lower Body - Score, Toileting - Score, Bladder Management - Score, Bowel Man agement - Score, Transfers: Bed, Chair, Wheelchair - Score, Transfers: Toilet - Score, Transfers: Ifrah wer - Score, Transfers: Tub - Score, Locomotion: Walk - Score, Locomotion: Wheelchair - Score, Compre hension - Score, Expression - Score, Social Interaction - Score, Problem Solving - Score, Memory - Sc ore were [electronically] signed by Phillip Talley on SatFeb 06 2018 15:36:40 GMT-0600 (Central Standard Time)
--- NOTE | 2018-02-06 15:46 | FAST ---
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 Charles Sauceda M.D. 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 EATING: Activity did not occur on this shift EATING - SCORE: 0-UNK GROOMING: Activity did not occur on this shift GROOMING - SCORE: 0-UNK BATHING: Activity did not occur on this shift BATHING - SCORE: 0-UNK DRESSING - UPPER BODY: Activity did not occur on this shift Patient is not dressing in public clothing ARTICLES SCORE Total number of steps: 0 DRESSING - UPPER BODY - SCORE: 0-UNK DRESSING - LOWER BODY: Activity did not occur on this shift Patient is not dressing in public clothing ARTICLES SCORE Total number of steps: 0 DRESSING - LOWER BODY - SCORE: 0-UNK TOILETING: Activity did not occur on this shift TOILETING - SCORE: 0-UNK BLADDER MANAGEMENT: Activity did not occur on this shift BLADDER MANAGEMENT - SCORE: 7-IND BOWEL MANAGEMENT: Activity did not occur on this shift BOWEL MANAGEMENT - SCORE: 7-IND TRANSFERS: BED, CHAIR, WHEELCHAIR: TRANSFERS: BED, CHAIR, WHEELCHAIR - STEP 1: Does the patient require assitance of a person or device, or need extra time with bed, chair, or whee lchair transfers? Yes. TRANSFERS: BED, CHAIR, WHEELCHAIR - STEP 2: Does the patient require the assistance of a helper? Yes. TRANSFERS: BED, CHAIR, WHEELCHAIR - STEP 3: How much assistance does the patient require from the helper? Lifting of the patient TRANSFERS: BED, CHAIR, WHEELCHAIR - STEP 4: Does the helper lift the patient ONLY up? ONLY down? Up AND Down? Up AND Down. TRANSFERS: BED, CHAIR, WHEELCHAIR - SCORE: 2-MAX TRANSFERS: TOILET: Activity did not occur on this shift TRANSFERS: TOILET - SCORE: 0-UNK TRANSFERS: SHOWER: Activity did not occur on this shift TRANSFERS: SHOWER - SCORE: 0-UNK TRANSFERS: TUB: Activity did not occur on this shift TRANSFERS: TUB - SCORE: 0-UNK LOCOMOTION: WALK: Patient walks less than 50 feet LOCOMOTION: WALK - SCORE: 1-DEP LOCOMOTION: WHEELCHAIR: LOCOMOTION: WHEELCHAIR - STEP 1: Does the patient need help to go 150 feet in a wheelchair? Yes. LOCOMOTION: WHEELCHAIR - STEP 2: How much assistance does the patient need from the helper? Patient goes less than 150 feet - but more than 50 feet - with the assistance of only one helper LOCOMOTION: WHEELCHAIR - SCORE: 2-MAX LOCOMOTION: STAIRS: Activity did not occur on this shift LOCOMOTION: STAIRS - SCORE: 0-UNK COMPREHENSION: COMPREHENSION - SCORE: 0-UNK EXPRESSION EXPRESSION - SCORE: 0-UNK SOCIAL INTERACTION: SOCIAL INTERACTION - SCORE: 0-UNK PROBLEM SOLVING: PROBLEM SOLVING - SCORE: 0-UNK MEMORY: MEMORY - SCORE: 0-UNK SIGNATURE PANEL: The following modified sections: Transfers: Bed, Chair, Wheelchair - Score, Transfers: Toilet - Score , Locomotion: Walk - Score, Locomotion: Wheelchair - Score, Locomotion: Stairs - Score were [electron fredy] signed by Ramo Scott, PT on SatFeb 06 2018 15:46:02 GMT-0600 (Central Standard Time)
[2018-02-06] MEDS ORDERED: FLEET ENEMA ADULT PR ONE (16:00)
--- NOTE | 2018-02-06 16:59 | FAST ---
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 Charles Sauceda M.D. 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 EATING: EATING - STEP 1: Does the patient require the assistance of a person or device, or need extra time when eating? No. EATING - SCORE: 7-IND GROOMING: Oral care Wash, rinse, and dry face Wash, rinse, and dry hands GROOMING - STEP 1: Does the patient require the assistance of a person or device, or need extra time when grooming? No. GROOMING - SCORE: 7-IND BATHING: Abdomen Buttocks Chest Left arm Left lower leg and foot Left upper leg Perineal area Right arm Right lower leg and foot Right upper leg BATHING - STEP 1: Does the patient require the assistance of a person or device, or need extra time when bathing? Yes. BATHING - STEP 2: Does the patient require the assistance of a helper? Yes. BATHING - STEP 3: How much assistance does the patient require from the helper? More than just incidental help BATHING - STEP 4: What percent of the body parts did the patient bathe WITHOUT the helper? Half or more of the body par ts BATHING - SCORE: 3-MOD DRESSING - UPPER BODY: T-shirt/pullover shirt (four steps) ARTICLES SCORE Total number of steps: 4 DRESSING - UPPER BODY - STEP 1: Does the patient require help from a person or device, or need extra time when dressing above the sudhak[address] st? Yes. DRESSING - UPPER BODY - STEP 2: Does the patient require the assistance of a helper? Yes. DRESSING - UPPER BODY - STEP 3: Does the helper touch the patient while dressing? No. DRESSING - UPPER BODY - SCORE: 5-SUP DRESSING - LOWER BODY: Elastic waist pants (three steps) Slip-on shoe - Left foot (one step) Slip-on shoe - Right foot (one step) Sock - Left foot (one step) Sock - Right foot (one step) Underwear (three steps) ARTICLES SCORE Total number of steps: 10 DRESSING - LOWER BODY - STEP 1: Does the patient require help from a person or device, or need extra time when dressing below the sudhak[address] st? Yes. DRESSING - LOWER BODY - STEP 2: Does the patient require the assistance of a helper? Yes. DRESSING - LOWER BODY - STEP 3: Does the helper touch the patient while dressing? Yes. DRESSING - LOWER BODY - STEP 4: How many of the total steps does the patient complete on his/her own? 0 DRESSING - LOWER BODY - STEP 5: Does patient require total assistance for dressing below the waist such as the helper holding clothin g and performing basically all the activities? Yes. DRESSING - LOWER BODY - SCORE: 1-DEP TOILETING: Activity did not occur on this shift TOILETING - SCORE: 0-UNK BLADDER MANAGEMENT: Activity did not occur on this shift BLADDER MANAGEMENT - SCORE: 7-IND BOWEL MANAGEMENT: Activity did not occur on this shift BOWEL MANAGEMENT - SCORE: 7-IND TRANSFERS: BED, CHAIR, WHEELCHAIR: Activity did not occur on this shift TRANSFERS: BED, CHAIR, WHEELCHAIR - SCORE: 0-UNK TRANSFERS: TOILET: Activity did not occur on this shift TRANSFERS: TOILET - SCORE: 0-UNK TRANSFERS: SHOWER: TRANSFERS: SHOWER - STEP 1: Does the patient require the assistance of a person or device, or need extra time with shower transfe rs? Yes. TRANSFERS: SHOWER - STEP 2: Does the patient require the assistance of a helper? Yes. TRANSFERS: SHOWER - STEP 3: How much assistance does the patient require from the helper? More than incidental help TRANSFERS: SHOWER - STEP 4: How much more help does the patient require from the helper? Lifting the patient up AND down from the wheelchair onto the shower chair TRANSFERS: SHOWER - SCORE: 2-MAX TRANSFERS: TUB: Activity did not occur on this shift TRANSFERS: TUB - SCORE: 0-UNK LOCOMOTION: WALK: Activity did not occur on this shift LOCOMOTION: WALK - SCORE: 0-UNK LOCOMOTION: WHEELCHAIR: Activity did not occur on this shift LOCOMOTION: WHEELCHAIR - SCORE: 0-UNK LOCOMOTION: STAIRS: Activity did not occur on this shift LOCOMOTION: STAIRS - SCORE: 0-UNK COMPREHENSION: COMPREHENSION: TYPE: Both COMPREHENSION - STEP 1: Does the patient require help from a person or device, or need extra time to understand complex and a bstract ideas (such as current events, finances, discharge planning, medical issues, relationships, e tc)? No. COMPREHENSION - STEP 2: Does the patient need extra time, require an assistive device (such as glasses for visual comprehensi on or a hearing aid for auditory comprehension) or does s/he have mild difficulty understanding compl ex and abstract information? No. COMPREHENSION - SCORE: 7-IND EXPRESSION EXPRESSION: TYPE: Both EXPRESSION - STEP 1: Does the patient require help from a person or device, or need extra time expressing complex and abst ract ideas (such as current events, finances, discharge planning, medical issues, relationships, etc) ? No. EXPRESSION - STEP 2: Does the patient need extra time, require an assistive device (such as augmentive communication syste m or a communication board), OR does s/he have mild difficulty expressing complex and abstract ideas (including mild dysarthria or mild word-find problems)? No. EXPRESSION - SCORE: 7-IND SOCIAL INTERACTION: SOCIAL INTERACTION - STEP 1: Does the patient require a helper to interact with others in social and therapeutic situations? No. SOCIAL INTERACTION - STEP 2: Does the patient need extra time in social situations, OR does s/he interact with staff, other patien ts, and family members ONLY in structured environments, OR does s/he require medication for social in teraction? No. SOCIAL INTERACTION - SCORE: 7-IND PROBLEM SOLVING: PROBLEM SOLVING - STEP 1: Does the patient need help from a person or device, or need extra time to solve complex problems such as managing a checking account or confronting interpersonal problems? No. PROBLEM SOLVING - STEP 2: Does the patient require extra time to make decisions or solve problems, OR does s/he have slight dif ficulty reading, initiating, or self-correcting in unfamiliar situations? No. PROBLEM SOLVING - SCORE: 7-IND MEMORY: MEMORY - STEP 1: Does the patient need help from a person or device, or need extra time to remember frequently encount ered people, daily routines, and executing requests? No. MEMORY - STEP 2: Does the patient have slight difficulty recognizing frequently encountered people, daily routines, or executing requests without the need for repetition or using self-initiated or environmental cues to remember? No. MEMORY - SCORE: 7-IND SIGNATURE PANEL: The following modified sections: Eating - Score, Grooming - Score, Bathing - Score, Dressing - Upper Body - Score, Dressing - Lower Body - Score, Toileting - Score, Transfers: Bed, Chair, Wheelchair - S core, Transfers: Toilet - Score, Transfers: Tub - Score, Transfers: Shower - Score, Comprehension - S core, Expression - Score, Social Interaction - Score, Problem Solving - Score, Memory - Score were [e lectronically] signed by Zoe Andrews OT on SatFeb 06 2018 16:57:56 GMT-0600 ([employer] [place])
--- NOTE | 2018-02-06 18:07 | R.HP ---
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 board/care, assisted living, fdc, transitional living) PRE-HOSPITAL LIVING WITH Family/Relatives ENCOUNTER PHYSICIAN: Dr. Charles Sauceda M.D. 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 is a 72 yo Right-handed white male. On 01-20-2018 he was admitted to [facility] with diagnosis herniated nucleus pulposus. His impairment category is Spinal Cord Dysfunction 04 - Other Non-traumatic Spinal Cord Dysfunction (04.130). Pre-morbidly, Pt. was independent/mod-I in Transfers Control, Communication, Social Cognition, Self-C are, Sphincter Control, and Locomotion; and he had good Sphincter Control. Currently, he has deficits of Safety Awareness, Transfers Control, Communication, Social Cognition, B alance, Endurance, Locomotion, and Self-Care. Pt. is now referred to [facility] for acute in-patient rehabilitation in order to maximize patient's functional independence in activities of daily living, strength, ROM, and mobi lity. Patient has realistic goal of being discharged at assistance level 6-Leslie to reside at Home with Fam sania/Relatives. MEDICATION ALLERGIES: No Known Drug Allergies (NKDA) ENVIRONMENTAL ALLERGIES: - Substance Allergies None Known - Other Allergies None Known PAST MEDICAL HISTORY: CAD s/p stent arthritis ckd stage III hypertension FAMILY HISTORY: Family history is not contributory. SOCIAL HISTORY: - Home Living Family/Relatives REVIEW OF SYSTEMS: - Gen No Chills Fatigue No Fever - Eyes No Double Vision No itchiness - ENMT No Difficulty Swallowing - CVS No Chest Discomfort No Chest Pain Fatigue No Weight Gain - Resp No Cough No Shortness of Breath - GI Continent No Abdominal Pain No Constipation No Diarrhea - Continent No Kidney Pain No Painful Urination No Urinary Urgency - MSK Joint Pain Muscle Cramps Stiffness - Skin No Itching No Rash No Suspicious Lesions - Neuro Coordination Difficulty No Difficulty with Concentration No Memory Loss No Seizures Weakness - Psych No Anxiety No Depression No HIV Exposure No Persistent Infections No Seasonal Allergies - Endo No Cold/Heat Intolerance No Excessive Hunger No Excessive Thirst No Excessive Urination PHYSICAL EXAM - Gen Alert and awake Lying in bed No apparent distress Oriented to: person, time, and place - Skin No breakdown No numbness - Eyes No abnormalities - ENMT No abnormalities - Neck No abnormalities - CVS RRR - Chest No abnormalities - Resp Clear to auscultation - Abd + bowel sounds - GI nondistended Deferred - No abnormalities - Ext no edema - MSK 4+/5 weakness in both lower extremities. Back muscle spasms. - Neuro No focal deficits - Psych No abnormalities VITAL SIGNS Temperature: 99 F SBP/DBP: 118/56 Pulse: 93 Resp: 18 NURSING: - Shower allowing shower - Bladder care per protocol - Skin care per protocol ACTIVITIES OOB only with supervision FUNCTIONAL STATUS: - Self-Care A. Eating Ind Ind B. Grooming Ind sup C. Bathing Ind Ind D. Dressing - Upper Ind Dep E. Dressing - Lower Ind Dep F. Toileting Ind Dep - Sphincter Control G: Bladder control Ind Ind H: Bowel control Ind Ind - Transfers Control I. Bed/Chair/Wheelchair Ind modA J. Toilet Ind maxA K. Tub/Shower Ind maxA - Locomotion L. Walk/Wheelchair (B) Ind Dep M. Stairs Ind ADNO - Communication N. Comprehension (B) Ind sup O. Expression (B) Ind sup - Social Cognition P. Social Interaction Ind sup Q. Problem Solving Ind sup R. Memory Ind sup - Endurance Poor - Balance Poor - Safety Awareness Poor CURRENT FUNC. DEFICITS: Safety Awareness, Transfers Control, Communication, Social Cognition, Balance, Endurance, Locomotion, and Self-Care ASSESSMENT: Pt. is a 72 yo Right-handed white male.On 01-20-2018 he was admitted to [facility] with diagno sis herniated nucleus pulposus.His impairment category is Spinal Cord Dysfunction 04 - Other Non-tra umatic Spinal Cord Dysfunction (04.130).Pre-morbidly, Pt. was independent/mod-I in Transfers Control, Communication, Social Cognition, Self-Care, Sphincter Control, and Locomotion; and he had good Sphin cter Control.Currently, he has deficits of Safety Awareness, Transfers Control, Communication, Social Cognition, Balance, Endurance, Locomotion, and Self-Care.Pt. is now referred to [facility] for acute in-patient rehabilitation in order to maximize patient's functional independe nce in activities of daily living, strength, ROM, and mobility.- Rehab Goal Patient has realistic goal of being discharged at assistance level 6-Leslie to reside at Home with Fam sania/Relatives. REHAB PLAN: - Physical Therapy Gait dysfunction - to improve, our physical therapists will perform initial evaluation of pt's status upon admission and devise an individualized program for Gait Training, and Wheel Chair mobility Inability to transfer - to improve, our physical therapists will perform initial evaluation of pt's s tatus upon admission and devise an individualized program for Bed mobility Need for home safety evaluation - to improve, our physical therapists will perform initial evaluation of pt's status upon admission and devise an individualized program for Home Evaluation Need in caregiver upon discharge - to improve, our physical therapists will perform initial evaluatio n of pt's status upon admission and devise an individualized program for Caregiver Training New precaution - to improve, our physical therapists will perform initial evaluation of pt's status u sandra admission and devise an individualized program for Patient precaution education Poor balance - to improve, our physical therapists will perform initial evaluation of pt's status upo n admission and devise an individualized program for Balance Training Poor endurance - to improve, our physical therapists will perform initial evaluation of pt's status u sandra admission and devise an individualized program for Endurance Training Weakness - to improve, our physical therapists will perform initial evaluation of pt's status upon ad mission and devise an individualized program for Aquatic Therapy, Neuromuscular Reeducation, and Stre ngthening Achieving independence - to improve, our physical therapists will perform initial evaluation of pt's status upon admission and devise an individualized program for Community Reintegration Activities - Occupational Therapy ADL deficits - to improve, our occupation therapists will perform initial evaluation of pt's status u sandra admission and devise an individualized program for Bathing, Bed mobility, Community Reintegration , Cooking, Dressing, Eating, Fine Motor Skills, Grooming, Homemaking, Kitchen Mobility, Laundry, Jolie ent Education, Safety Awareness, Splinting - Positioning, Transfers(Toilet, Tub, Shower), and Wheel C hair Management Cognitive deficits - to improve, our occupation therapists will perform initial evaluation of pt's st atus upon admission and devise an individualized program for Cognition - orientation Need for care nurse rn - to improve, our occupation therapists will perform initial evaluation of pt's s tatus upon admission and devise an individualized program for Caregiver Training Weakness - to improve, our occupation therapists will perform initial evaluation of pt's status upon admission and devise an individualized program for Aquatic Therapy, Balance, Endurance, UE ROM, and U E strengthening MEDICAL PLAN: - Diet Type Start Regular - Diet - Liquid Texture Start Regular - Tube Feed Start N/A - Bladder care per protocol - Skin care per protocol - Diet - Solid Texture Regular - Shower shower DISCHARGE PLAN: - Estimated Length of Stay (days) 16. - Consensus on plan Discharge plan has been discussed with primary caregiver. Patient/Family is in agreement with the pili n. Primary caregiver is in agreement with the plan. - Patient/Family Goals Return home with assistance. - Planned Living Setting Upon Discharge Home, to live with Family/Relatives. 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
--- NOTE | 2018-02-06 18:09 | PAPE ---
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 Charles Sauceda M.D. ADMISSION DIAGNOSIS: herniated nucleus pulposus ONSET DATE 01-20-2018 SECONDARY/COMORBID DIAGNOSES TIERED: - Non-Tiered hypertension - N/A arthritis ckd stage III CAD s/p stent POST-ADMISSION FUNCTIONAL/MEDICAL STATUS: - Bladder Same accident frequency: Ind - No accidents in the past 7 days - Bowel Same accident frequency: Ind - No accidents in the past 7 days - Walking Same score based on distance walked: 1(<=50ft) STATUS CHANGE EVALUATION: No change in Functional or Medical Status is identified compared with Pre-Admission screening. PATIENT NEEDS CLOSE MEDICAL SUPERVISION BY A REHABILITATION PHYSICIAN FOR: Bowel and Bladder Management Coordination of Treatment Team Medical and Co-Morbidity Management Wound Care PATIENT REQUIRES 24X7 REHAB NURSING FOR MEDICAL AND FUNCTIONAL MGT. OF THE FOLLOWING DEFICITS: ADL's Ambulation Bowel and Bladder Management Cognition Communication Disease Management Medication Management Patient/Family Education Providing Safe Environment Skin Integrity Transfers PATIENT REQUIRES INTENSIVE, COORDINATED INTERDISCIPLINARY APPROACH TO REHAB: Arranging Home Equipment/Services Discharge Planning Family Intervention/Training Training Manager/Case Management LIST OF IDENTIFIED AND POTENTIAL PROBLEMS: Alteration in leisure activities Bladder, Incontinence Blood Pressure, Hypertension/hypotension Issues Bowel, Incontinence Infection, Actual or Potential Mobility Impaired Pain, Alteration in Comfort Self Care Deficit Skin Integrity, Actual or Potential Urinary Tract Infection (UTI), Actual or Potential RISK FOR COMPLICATIONS - Hypertension CVA. Hypotension. [place]. TIA. INTERVENTIONS - Hypertension PATIENT COULD BE AT RISK FOR COMPLICATIONS FROM ADVERSE MEDICAL CONDITIONS DUE TO HIS/HER COMORBIDITI ES AND THE RIGORS OF THE INTENSIVE REHABILLITATION PROGRAM. METHODS OR INTERVENTIONS TO AVOID COMPLIC ATIONS INCLUDE: - Bleeding Assess lab values and manage abnormalities. Nursing to teach precautions for anti-coagulation therapy . Wound to be assessed every shift. - Infection Clinical staff to assess and manage the signs and symptoms of infection including fever, redness, war mth, etc. - Urinary Tract Infection - Falls Patient will be evaluated for Fall Precautions and will be placed on Fall Precautions as indicated pe r protocol. - Skin Breakdown Nursing will assess skin daily using assessment tool and will place on Skin Breakdown Precautions as indicated per protocol. - Pain Clinical staff may employ non-medication methods such as massage, distraction, decrease stimulus, etc . as needed. Clinical staff will assess patient's pain level every shift per protocol to assess and e nsure pain management effectiveness. Medications will be given and the pain level re-assessed. PRELIMINARY PLAN OF CARE: - Physical Therapy Patient needs Physical Therapy for a daily minimum of 1.5 hours at least 5 out of 7 days, to improve: Mobility, Strengthening, Transfers, Stretching, ROM, Endurance, Ability to manage stairs, Gait, and Balance. - Rehabilitation Nursing Patient requires 24x7 Rehabilitation Nursing for: Pain Issues, Identifying and preventing risk factor s, Monitoring and reporting current medical conditions, Assisting with ambulation and transfer, Darwin ting with all ADL-s, Teaching patients about disease process and medications, Family teaching, Provid ing safe environment, Bowel and Bladder Issues, Skin Integrity, and Medication Management. Patient needs Training Manager and/or Case Management for: Discharge Planning, Arranging Home Equipmen t or Services, and Family Interventions. - Dietary and Nutrition Services Patient needs Dietary and Nutrition Services for: Adequate Nutrition, Nutritional Supplements, and Nu tritional Education. - Occupational Therapy Patient needs Occupational Therapy for a daily minimum of 1.5 hours at least 5 out of 7 days, to impr ove Activities of Daily Living, including: Eating, Grooming, Bathing, Dressing, Toileting, Toilet Tra nsfers, Community Reintegration, Higher functional activities, Adaptive Equipment, Splinting, Househo ld Tasks, and Other activities as determined. POTENTIAL FUNCTIONAL GOALS FOR PATIENT TO ACHIEVE BY DISCHARGE: - Safety Precaution Patient will remain free from falls or injury at time of discharge. - Bed Mobility Patient will perform bed mobility at 4-Padmini level of assistance. - Transfers Patient will complete transfers from bed to chair at 4-Padmini level of assistance. - Mobility Patient will ambulate 150 ft with 4-Padmini level of assistance with RW. PATIENT REHAB POTENTIAL Expected level of measurable improvement will be of a practical value to patient's functional capacit y or adaptations to impairments Has a viable Discharge Plan Medically appropriate; condition is sufficiently stable to participate in intensive rehab program Patient is able and expected to receive 3 hours of individualized therapy daily on at least 5 of ever y 7 days Patient's prognosis for significant practical improvement within a reasonable period of time appears Good DISCHARGE PLAN: - Estimated Length of Stay (days) 16. - Consensus on plan Discharge plan has been discussed with primary caregiver. Patient/Family is in agreement with the pili n. Primary caregiver is in agreement with the plan. - Patient/Family Goals Return home with assistance. - Planned Living Setting Upon Discharge Home, to live with Family/Relatives. CONCLUSION ON REHABILITATION NECESSITY: I have evaluated patient's pre-admission functional status and, comparing it to the patient's post-ad mission functional status now, I conclude that the pre-admission assessment was accurate. Patient's c ondition on admission supports the medical necessity of admission to [facility]. It is safe to proceed with patient's therapy program. SIGNATURE PANEL: (OUTSIDE PROPERTY AGENT)
[2018-02-06] MEDS: PROMOD 30 ML DOSE PO SCH (19:14)
[2018-02-06] MEDS: DOCUSATE NA/SENNA CONC 1 TAB PO PRN (19:15)
[2018-02-06] MEDS: EZETIMIBE SIMVASTATIN PO SCH (20:45)
[2018-02-06] MEDS: MELATONIN 5 MG TABLET PO PRN (20:45)
[2018-02-06] MEDS ORDERED: EZETIMIBE 10 MG TAB PO SCH (21:00)
[2018-02-06] MEDS ORDERED: ATORVASTATIN 20 MG TAB PO SCH (21:00)
--- NOTE | 2018-02-07 01:03 | FAST ---
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 Charles Sauceda M.D. 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 EATING: Activity did not occur on this shift EATING - SCORE: 0-UNK GROOMING: Activity did not occur on this shift GROOMING - SCORE: 0-UNK BATHING: Activity did not occur on this shift BATHING - SCORE: 0-UNK DRESSING - UPPER BODY: Patient is not dressing in public clothing ARTICLES SCORE Total number of steps: 0 DRESSING - UPPER BODY - SCORE: 0-UNK DRESSING - LOWER BODY: Patient is not dressing in public clothing ARTICLES SCORE Total number of steps: 0 DRESSING - LOWER BODY - SCORE: 0-UNK TOILETING: TOILETING - STEP 1: Does the patient require the assistance of a person or device, or need extra time with toileting? Yes . TOILETING - STEP 2: Does the patient require the assistance of a helper? Yes. TOILETING - STEP 3: How much assistance does the patient require from the helper? Hands-on assistance from the helper TOILETING - STEP 4: Of the 3 tasks: 1) Adjusting clothing prior to use, 2) Cleansing of perineal area, 3) Adjusting clot pablo after use; How many tasks does the patient perform WITHOUT assistance of the helper? No tasks; h elper performs all three tasks TOILETING - SCORE: 1-DEP BLADDER MANAGEMENT: Crane removes incontinent device (Depends, pull ups, etc.); cleans the patient after accident / inco ntinent episode; and, applies new incontinent device. BLADDER MANAGEMENT - SCORE: 1-DEP BLADDER MANAGEMENT - FREQUENCY OF ACCIDENTS: BLADDER MANAGEMENT(FA) - STEP 1: How many accidents has the patient had during the current shift? 2 BOWEL MANAGEMENT: Crane removes incontinent device (depends, pull ups, etc.); cleans the patient after accident / inco ntinent episode; and, applies new device (depends, pull-ups, padding, etc.). BOWEL MANAGEMENT - SCORE: 1-DEP BOWEL MANAGEMENT - FREQUENCY OF ACCIDENTS: BOWEL MANAGEMENT(FA) - STEP 1: How many accidents has the patient had during the current shift? 5 TRANSFERS: BED, CHAIR, WHEELCHAIR: TRANSFERS: BED, CHAIR, WHEELCHAIR - STEP 1: Does the patient require assitance of a person or device, or need extra time with bed, chair, or whee lchair transfers? Yes. TRANSFERS: BED, CHAIR, WHEELCHAIR - STEP 2: Does the patient require the assistance of a helper? Yes. TRANSFERS: BED, CHAIR, WHEELCHAIR - STEP 3: How much assistance does the patient require from the helper? Lifting of the patient TRANSFERS: BED, CHAIR, WHEELCHAIR - STEP 4: Does the helper lift the patient ONLY up? ONLY down? Up AND Down? Patient needs help with all lifting TRANSFERS: BED, CHAIR, WHEELCHAIR - SCORE: 1-DEP TRANSFERS: TOILET: TRANSFERS: TOILET - STEP 1: Does the patient require the assistance of a person or device, or need extra time with toilet transfe rs? Yes. TRANSFERS: TOILET - STEP 2: Does the patient require the assistance of a helper? Yes. TRANSFERS: TOILET - STEP 3: How much assistance does the patient require from the helper? Patient performs less than half of the transferring tasks TRANSFERS: TOILET - STEP 4: Does the patient require total assistance for the toilet transfer such as the helper doing basically all the lifting? Yes. TRANSFERS: TOILET - SCORE: 1-DEP TRANSFERS: SHOWER: Activity did not occur on this shift TRANSFERS: SHOWER - SCORE: 0-UNK TRANSFERS: TUB: Activity did not occur on this shift TRANSFERS: TUB - SCORE: 0-UNK LOCOMOTION: WALK: Activity did not occur on this shift LOCOMOTION: WALK - SCORE: 0-UNK LOCOMOTION: WHEELCHAIR: Activity did not occur on this shift LOCOMOTION: WHEELCHAIR - SCORE: 0-UNK COMPREHENSION: COMPREHENSION: TYPE: Both COMPREHENSION - STEP 1: Does the patient require help from a person or device, or need extra time to understand complex and a bstract ideas (such as current events, finances, discharge planning, medical issues, relationships, e tc)? Yes. COMPREHENSION - STEP 2: Does the patient require help to understand questions or statements about basic needs or ideas (such as hunger, thirst, sleep, safety, daily schedule, room location, or discomfort) half or more of the t vera? No. COMPREHENSION - STEP 3: How often does the patient need help to understand directions and conversation about basic needs? 10% - 24% of the time COMPREHENSION - SCORE: 4-MIN EXPRESSION EXPRESSION: TYPE: Both EXPRESSION - STEP 1: Does the patient require help from a person or device, or need extra time expressing complex and abst ract ideas (such as current events, finances, discharge planning, medical issues, relationships, etc) ? No. EXPRESSION - STEP 2: Does the patient need extra time, require an assistive device (such as augmentive communication syste m or a communication board), OR does s/he have mild difficulty expressing complex and abstract ideas (including mild dysarthria or mild word-find problems)? Yes. EXPRESSION - SCORE: 6-SON SOCIAL INTERACTION: SOCIAL INTERACTION - STEP 1: Does the patient require a helper to interact with others in social and therapeutic situations? No. SOCIAL INTERACTION - STEP 2: Does the patient need extra time in social situations, OR does s/he interact with staff, other patien ts, and family members ONLY in structured environments, OR does s/he require medication for social in teraction? Yes, patient needs extra time SOCIAL INTERACTION - SCORE: 6-SON PROBLEM SOLVING: PROBLEM SOLVING - STEP 1: Does the patient need help from a person or device, or need extra time to solve complex problems such as managing a checking account or confronting interpersonal problems? No. PROBLEM SOLVING - STEP 2: Does the patient require extra time to make decisions or solve problems, OR does s/he have slight dif ficulty reading, initiating, or self-correcting in unfamiliar situations? Yes, patient needs extra ti me. PROBLEM SOLVING - SCORE: 6-SON MEMORY: MEMORY - STEP 1: Does the patient need help from a person or device, or need extra time to remember frequently encount ered people, daily routines, and executing requests? No. MEMORY - STEP 2: Does the patient have slight difficulty recognizing frequently encountered people, daily routines, or executing requests without the need for repetition or using self-initiated or environmental cues to remember? Yes. MEMORY - SCORE: 6-SON SIGNATURE PANEL: The following modified sections: Eating - Score, Grooming - Score, Dressing - Upper Body - Score, Anatoly ssing - Lower Body - Score, Toileting - Score, Bladder Management - Score, Bowel Management - Score, Transfers: Bed, Chair, Wheelchair - Score, Transfers: Toilet - Score, Transfers: Shower - Score, Anaya sfers: Tub - Score, Locomotion: Walk - Score, Locomotion: Wheelchair - Score, Comprehension - Score, Expression - Score, Social Interaction - Score, Problem Solving - Score, Memory - Score were [electro nically] signed by Zully Humphrey CNA on SatFeb 07 2018 00:52:36 GMT-0600 (Central Standard Time)
[2018-02-07] MEDS: METOPROLOL XL 25 MG TAB PO SCH (05:08)
[2018-02-07] MEDS: PANTOPRAZOLE 40MG TABLET PO SCH (06:30)
[2018-02-07] MEDS: INSULIN GLARGINE 100 UNITS/ML SQ SCH (07:01)
[2018-02-07] MEDS: INSULIN LISPRO 100 UNIT/1 ML SQ SCH ×3 (07:08→16:50)
[2018-02-07] MEDS: CODEINE 30MG/APAP 300MG TAB PO PRN (07:56)
[2018-02-07] MEDS: BACLOFEN 10 MG TAB PO SCH (07:56)
[2018-02-07] MEDS: MAGNESIUM OXIDE 400 MG TAB PO SCH ×2 (07:57→20:02)
[2018-02-07] MEDS: ASPIRIN EC 81 MG TAB PO SCH (07:57)
[2018-02-07] MEDS: TAMSULOSIN 0.4 MG SR CAP PO SCH (07:57)
[2018-02-07] MEDS: FE SULF/FA/VIT B COMP & C TAB PO SCH (07:57)
[2018-02-07] MEDS: FERROUS SULFATE 325 MG TAB PO SCH (07:57)
[2018-02-07] MEDS: NIFEDIPINE XL 30 MG TABLET PO SCH (07:58)
[2018-02-07] MEDS: FUROSEMIDE 20 MG TABLET PO SCH (07:58)
[2018-02-07] MEDS: POLYETHYL GLY 3350 17 GM/DOSE PO SCH (07:58)
[2018-02-07] MEDS: GABAPENTIN 100 MG CAP PO SCH (07:59)
[2018-02-07] MEDS: PROMOD 30 ML DOSE PO SCH ×2 (07:59→20:00)
[2018-02-07] MEDS: HEPARIN 5000 UNIT/ML 1 ML VIAL SQ SCH ×2 (08:27→20:00)
[2018-02-07] MEDS: HYDROCODONE/APAP 5/325 MG TAB PO PRN ×2 (09:01→16:34)
--- NOTE | 2018-02-07 09:48 | P.RH.PN ---
Estimated Length of Stay: 14 Expected Discharge Date: 02/19/18 Discharge Disposition Plan: Home Family Support: Yes Shelter Goal: Mobility, Transfers, Self Care Vital Signs: Last Vital Signs Temp 97.5 F 02/07/18 06:56 Pulse 88 02/07/18 07:58 Resp 16 02/07/18 06:56 BP 101/58 L 02/07/18 07:58 Pulse Ox 98 02/07/18 06:56 Laboratory: Laboratory Last Values WBC 7.0 K/uL (4.3-10.9) 02/06/18 06:05 RBC 4.48 M/uL (4.33-5.43) 02/06/18 06:05 Hgb 11.2 g/dL (13.6-17.9) L 02/06/18 06:05 Hct 34.3 % (39.6-49.0) L 02/06/18 06:05 MCV 76.6 fL (80-100) L 02/06/18 06:05 MCH 25.0 pg (27.0-35.0) L 02/06/18 06:05 MCHC 32.7 g/dL (32.0-36.0) 02/06/18 06:05 RDW 21.8 % (12.1-15.2) H 02/06/18 06:05 Plt Count 215 K/uL (152-406) 02/06/18 06:05 MPV 10.2 fL (7.6-11.3) 02/06/18 06:05 Neutrophils % 72.6 % (41.7-73.7) 02/06/18 06:05 Lymphocytes % 15.1 % (15.3-44.8) L 02/06/18 06:05 Monocytes % 8.6 % (3.3-12.3) 02/06/18 06:05 Eosinophils % 2.9 % (0-4.4) 02/06/18 06:05 Basophils % 0.8 % (0-1.3) 02/06/18 06:05 Absolute Neutrophils 5.1 K/uL (1.8-8.0) 02/06/18 06:05 Absolute Lymphocytes 1.1 K/uL (0.7-4.9) 02/06/18 06:05 Absolute Monocytes 0.6 K/uL (0.1-1.3) 02/06/18 06:05 Absolute Eosinophils 0.2 K/uL (0-0.5) 02/06/18 06:05 Absolute Basophils 0.1 K/uL (0-0.5) 02/06/18 06:05 Anisocytosis 1+ 02/06/18 06:05 Morphology Comment Noted (NOT SEEN) 02/06/18 06:05 Sodium 136 mmol/L (136-145) 02/06/18 06:05 Potassium 4.2 mmol/L (3.5-5.1) 02/06/18 06:05 Chloride 102 mmol/L (98-107) 02/06/18 06:05 Carbon Dioxide 26 mmol/L (21-32) 02/06/18 06:05 BUN 28 mg/dL (7-18) H 02/06/18 06:05 Creatinine 0.90 mg/dL (0.55-1.3) 02/06/18 06:05 Estimated GFR 82 mL/min (=/>90) L 02/06/18 06:05 Glucose 110 mg/dL (74-106) H 02/06/18 06:05 POC Glucose 180 mg/dl (65-120) H 02/07/18 07:04 Calcium 8.6 mg/dL (8.5-10.1) 02/06/18 06:05 Magnesium 2.4 mg/dL (1.8-2.4) 02/06/18 06:05 Albumin 2.6 g/dL (3.4-5.0) L 02/06/18 06:05 Prealbumin 16.0 mg/dL (20-40) L 02/06/18 06:05 Urine Color Yellow 02/05/18 22:55 Urine Appearance Clear 02/05/18 22:55 Urine pH 5.5 (5.0-7.0) 02/05/18 22:55 Ur Specific [place] 1.015 (1.005-1.030) 02/05/18 22:55 Urine Ketones Negative (NEG) 02/05/18 22:55 Urine Blood Negative (NEG) 02/05/18 22:55 Urine Nitrite Negative (NEG) 02/05/18 22:55 Urine Bilirubin Negative (NEG) 02/05/18 22:55 Urine Urobilinogen 1.0 mg/dL (0.2-1.0) 12 22:55 Ur Leukocyte Esterase Negative (NEG) 02/05/18 22:55 Urine RBC None seen /HPF (NONE SEEN) 02/05/18 22:55 Urine WBC <5 /HPF (<5) 02/05/18 22:55 Ur Squamous Epith Cells <5 /HPF (NONE SEEN) 02/05/18 22:55 Urine Bacteria <20 /HPF (NONE SEEN) 02/05/18 22:55 Urine Culture Reflexed Not needed 02/05/18 22:55 Urine Glucose 2+ (NEG) H 02/05/18 22:55 Urine Total Protein Negative (NEG) 02/05/18 22:55 Weight: 169 lb Wound Present: Yes Closed Surgical Incision Present: Yes Negative Pressure Wound Therapy Present: No Physician Update: He is reporting a lot of pain in the lower back. He had a fleet enema which gave multiple bowel movements. Will add Narco 5/325 q4 hr prn and gabapentin 600 mg bid. Will do lumbar spine x-ray, 2 views. Continue with all therapy. Medical Issues: on Heparin 5,000 unit SQ Q12H Pain Issues: Tylenol #3 Q4H PO PRN. Tramadol 50mg Q4H PRN Functional Improvement: pt present with severe generalized weakness. pt demonstrates poor balance and stability in standing and sitting. pt experiences poor tolerance to functional activity due to pain, weakness, and fatigue. Skilled PT services are necessary to address the above mentioned impairments and functional limitations. pt requires assist with all functional transfers. Functional Improvement Occupational Therapy: Patient has demonstrated great participation and motivation to improve current functional level of performance. Benefits from further OT addres goals as set in POC and to reitorate spinal precautions using adaptive equipment as necessary during all ADL tasks performed. Summary: Patient's care plan and intermediate project manager goals have been reviewed and revised as necessary. Please see the Rehabilitation Signature page for all necessary signatures.
--- NOTE | 2018-02-07 11:25 | FAST ---
SHIFT START DATE/TIME: 02/07/2018 07:00 (DESIGN CHECKER) SHIFT END DATE/TIME: 02/07/2018 19:00 (DESIGN CHECKER) NAME SKY SANDERS DATE OF : 1945 DATE OF ADMISSION: 02/05/2018 19:10 (DESIGN CHECKER) PHONE: AGE: 72 SSN# [id number] GENDER: Male ENCOUNTER PHYSICIAN: Dr. Charles Sauceda M.D. 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 EATING: EATING - STEP 1: Does the patient require the assistance of a person or device, or need extra time when eating? Yes. EATING - STEP 2: Does the patient require the assistance of a helper? No, patient only requires an assistive device, O R s/he takes more than reasonable time to eat, OR there is a safety concern, OR s/he requires modifie d food consistency EATING - SCORE: 6-SON GROOMING: Comb/brush hair Oral care GROOMING - STEP 1: Does the patient require the assistance of a person or device, or need extra time when grooming? Yes. GROOMING - STEP 2: Does the patient require the assistance of a helper? No. The patient only requires an assistive devic e, OR takes more than reasonable time to groom, OR there is a concern for safety as the patient groom s GROOMING - SCORE: 6-SON BATHING: Activity did not occur on this shift BATHING - SCORE: 0-UNK DRESSING - UPPER BODY: T-shirt/pullover shirt (four steps) ARTICLES SCORE Total number of steps: 4 DRESSING - UPPER BODY - STEP 1: Does the patient require help from a person or device, or need extra time when dressing above the sudhak[address] st? Yes. DRESSING - UPPER BODY - STEP 2: Does the patient require the assistance of a helper? Yes. DRESSING - UPPER BODY - STEP 3: Does the helper touch the patient while dressing? Yes. DRESSING - UPPER BODY - STEP 4: How many of the total steps does the patient complete on his/her own? 3 DRESSING - UPPER BODY - SCORE: 4-MIN DRESSING - LOWER BODY: Elastic waist pants (three steps) Sock - Left foot (one step) Sock - Right foot (one step) Underwear (three steps) ARTICLES SCORE Total number of steps: 8 DRESSING - LOWER BODY - STEP 1: Does the patient require help from a person or device, or need extra time when dressing below the sudh[address] st? Yes. DRESSING - LOWER BODY - STEP 2: Does the patient require the assistance of a helper? Yes. DRESSING - LOWER BODY - STEP 3: Does the helper touch the patient while dressing? Yes. DRESSING - LOWER BODY - STEP 4: How many of the total steps does the patient complete on his/her own? 0 DRESSING - LOWER BODY - STEP 5: Does patient require total assistance for dressing below the waist such as the helper holding clothin g and performing basically all the activities? Yes. DRESSING - LOWER BODY - SCORE: 1-DEP TOILETING: TOILETING - STEP 1: Does the patient require the assistance of a person or device, or need extra time with toileting? Yes . TOILETING - STEP 2: Does the patient require the assistance of a helper? Yes. TOILETING - STEP 3: How much assistance does the patient require from the helper? Hands-on assistance from the helper TOILETING - STEP 4: Of the 3 tasks: 1) Adjusting clothing prior to use, 2) Cleansing of perineal area, 3) Adjusting clot pablo after use; How many tasks does the patient perform WITHOUT assistance of the helper? No tasks; h elper performs all three tasks TOILETING - SCORE: 1-DEP BLADDER MANAGEMENT: [place] removes incontinent device (Depends, pull ups, etc.); cleans the patient after accident / inco ntinent episode; and, applies new incontinent device. BLADDER MANAGEMENT - SCORE: 1-DEP BLADDER MANAGEMENT - FREQUENCY OF ACCIDENTS: BLADDER MANAGEMENT(FA) - STEP 1: How many accidents has the patient had during the current shift? 2 BOWEL MANAGEMENT: [place] removes incontinent device (depends, pull ups, etc.); cleans the patient after accident / inco ntinent episode; and, applies new device (depends, pull-ups, padding, etc.). BOWEL MANAGEMENT - SCORE: 1-DEP BOWEL MANAGEMENT - FREQUENCY OF ACCIDENTS: BOWEL MANAGEMENT(FA) - STEP 1: How many accidents has the patient had during the current shift? 2 TRANSFERS: BED, CHAIR, WHEELCHAIR: TRANSFERS: BED, CHAIR, WHEELCHAIR - STEP 1: Does the patient require assitance of a person or device, or need extra time with bed, chair, or whee lchair transfers? Yes. TRANSFERS: BED, CHAIR, WHEELCHAIR - STEP 2: Does the patient require the assistance of a helper? Yes. TRANSFERS: BED, CHAIR, WHEELCHAIR - STEP 3: How much assistance does the patient require from the helper? Lifting of the patient TRANSFERS: BED, CHAIR, WHEELCHAIR - STEP 4: Does the helper lift the patient ONLY up? ONLY down? Up AND Down? Up AND Down. TRANSFERS: BED, CHAIR, WHEELCHAIR - SCORE: 2-MAX TRANSFERS: TOILET: TRANSFERS: TOILET - STEP 1: Does the patient require the assistance of a person or device, or need extra time with toilet transfe rs? Yes. TRANSFERS: TOILET - STEP 2: Does the patient require the assistance of a helper? Yes. TRANSFERS: TOILET - STEP 3: How much assistance does the patient require from the helper? Patient performs less than half of the transferring tasks TRANSFERS: TOILET - STEP 4: Does the patient require total assistance for the toilet transfer such as the helper doing basically all the lifting? Yes. TRANSFERS: TOILET - SCORE: 1-DEP TRANSFERS: SHOWER: Activity did not occur on this shift TRANSFERS: SHOWER - SCORE: 0-UNK TRANSFERS: TUB: Activity did not occur on this shift TRANSFERS: TUB - SCORE: 0-UNK LOCOMOTION: WALK: Activity did not occur on this shift LOCOMOTION: WALK - SCORE: 0-UNK LOCOMOTION: WHEELCHAIR: Activity did not occur on this shift LOCOMOTION: WHEELCHAIR - SCORE: 0-UNK COMPREHENSION: COMPREHENSION: TYPE: Both COMPREHENSION - STEP 1: Does the patient require help from a person or device, or need extra time to understand complex and a bstract ideas (such as current events, finances, discharge planning, medical issues, relationships, e tc)? No. COMPREHENSION - STEP 2: Does the patient need extra time, require an assistive device (such as glasses for visual comprehensi on or a hearing aid for auditory comprehension) or does s/he have mild difficulty understanding compl ex and abstract information? Yes. COMPREHENSION - SCORE: 6-SON EXPRESSION EXPRESSION: TYPE: Both EXPRESSION - STEP 1: Does the patient require help from a person or device, or need extra time expressing complex and abst ract ideas (such as current events, finances, discharge planning, medical issues, relationships, etc) ? No. EXPRESSION - STEP 2: Does the patient need extra time, require an assistive device (such as augmentive communication syste m or a communication board), OR does s/he have mild difficulty expressing complex and abstract ideas (including mild dysarthria or mild word-find problems)? Yes. EXPRESSION - SCORE: 6-SON SOCIAL INTERACTION: SOCIAL INTERACTION - STEP 1: Does the patient require a helper to interact with others in social and therapeutic situations? No. SOCIAL INTERACTION - STEP 2: Does the patient need extra time in social situations, OR does s/he interact with staff, other patien ts, and family members ONLY in structured environments, OR does s/he require medication for social in teraction? Yes, patient needs extra time SOCIAL INTERACTION - SCORE: 6-SON PROBLEM SOLVING: PROBLEM SOLVING - STEP 1: Does the patient need help from a person or device, or need extra time to solve complex problems such as managing a checking account or confronting interpersonal problems? No. PROBLEM SOLVING - STEP 2: Does the patient require extra time to make decisions or solve problems, OR does s/he have slight dif ficulty reading, initiating, or self-correcting in unfamiliar situations? Yes, patient needs extra ti me. PROBLEM SOLVING - SCORE: 6-SON MEMORY: MEMORY - STEP 1: Does the patient need help from a person or device, or need extra time to remember frequently encount ered people, daily routines, and executing requests? No. MEMORY - STEP 2: Does the patient have slight difficulty recognizing frequently encountered people, daily routines, or executing requests without the need for repetition or using self-initiated or environmental cues to remember? Yes. MEMORY - SCORE: 6-SON SIGNATURE PANEL: The following modified sections: Eating - Score, Grooming - Score, Bathing - Score, Dressing - Upper Body - Score, Dressing - Lower Body - Score, Toileting - Score, Bladder Management - Score, Bowel Man agement - Score, Transfers: Bed, Chair, Wheelchair - Score, Transfers: Toilet - Score, Transfers: Ifrah wer - Score, Transfers: Tub - Score, Locomotion: Walk - Score, Locomotion: Wheelchair - Score, Compre hension - Score, Expression - Score, Problem Solving - Score, Memory - Score, Social Interaction - Sc ore were [electronically] signed by Tammy Figueroa C.N.A. on SatFeb 07 2018 11:25:05 [facility]-0600 (Cent[place] Standard Time)
--- NOTE | 2018-02-07 12:14 | RAD REPORT ---
EXAM DESCRIPTION: RAD - Chest Single View - 02/07/2018 12:08 pm CLINICAL HISTORY: Fever, back pain COMPARISON: CT study August 2013, chest exam April 2016 TECHNIQUE: AP portable chest image was obtained 1150 hours . FINDINGS: Lung volumes are low. No peripheral mass, consolidation or suspicious lung parenchymal pro cess. Sternotomy wires are in place. Large hiatal hernia is again noted. This was present back in 201 4. Heart and vasculature are normal. No measurable pleural effusion and no pneumothorax. No acute bon y abnormality seen. No acute aortic findings suspected. IMPRESSION: No acute cardiopulmonary process. No significant change from comparison.
--- NOTE | 2018-02-07 12:16 | RAD REPORT ---
EXAM DESCRIPTION: RAD - Lumbar Spine 3 Views - 02/07/2018 12:08 pm CLINICAL HISTORY: Lumbar pain, prior laminectomy COMPARISON: March 2013 lumbar spine, January 11, 2018 CT lumbar spine FINDINGS: A three-view lumbar spine examination was performed. Exam has motion degradation limitatio n. Patient was unable to breath hold during image acquisition. Lumbar bodies are normal in height. Right lateral subluxation of L3 is similar to comparison. Patient has a mild scoliotic curvature in the lumbar spine with left convex [place] L1 and right convex [place] at L3. Significant L2-3 disc space narrowing present with endplate spurring. Slight retrolisthesis of L 2 on L3 has not changed from January 11 imaging. No compression fracture seen. No lytic, sclerotic o r expansile bony process. Prominent facet joint degenerative changes are present. No pars defects gerald ntified. Dense aortoiliac atherosclerotic calcifications. IMPRESSION: Prominent degenerative and scoliotic changes are present in the lumbar spine. No fracture or acute bone findings seen. No significant change from the January 11 imaging.
--- NOTE | 2018-02-07 14:27 | FAST ---
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 Charles Sauceda M.D. 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 EATING: Activity did not occur on this shift EATING - SCORE: 0-UNK GROOMING: Activity did not occur on this shift GROOMING - SCORE: 0-UNK BATHING: Activity did not occur on this shift BATHING - SCORE: 0-UNK DRESSING - UPPER BODY: Activity did not occur on this shift Patient is not dressing in public clothing ARTICLES SCORE Total number of steps: 0 DRESSING - UPPER BODY - SCORE: 0-UNK DRESSING - LOWER BODY: Activity did not occur on this shift Patient is not dressing in public clothing ARTICLES SCORE Total number of steps: 0 DRESSING - LOWER BODY - SCORE: 0-UNK TOILETING: Activity did not occur on this shift TOILETING - SCORE: 0-UNK BLADDER MANAGEMENT: Activity did not occur on this shift BLADDER MANAGEMENT - SCORE: 7-IND BOWEL MANAGEMENT: Activity did not occur on this shift BOWEL MANAGEMENT - SCORE: 7-IND TRANSFERS: BED, CHAIR, WHEELCHAIR: TRANSFERS: BED, CHAIR, WHEELCHAIR - STEP 1: Does the patient require assitance of a person or device, or need extra time with bed, chair, or whee lchair transfers? Yes. TRANSFERS: BED, CHAIR, WHEELCHAIR - STEP 2: Does the patient require the assistance of a helper? Yes. TRANSFERS: BED, CHAIR, WHEELCHAIR - STEP 3: How much assistance does the patient require from the helper? Lifting of the patient TRANSFERS: BED, CHAIR, WHEELCHAIR - STEP 4: Does the helper lift the patient ONLY up? ONLY down? Up AND Down? Up AND Down. TRANSFERS: BED, CHAIR, WHEELCHAIR - SCORE: 2-MAX TRANSFERS: TOILET: Activity did not occur on this shift TRANSFERS: TOILET - SCORE: 0-UNK TRANSFERS: SHOWER: Activity did not occur on this shift TRANSFERS: SHOWER - SCORE: 0-UNK TRANSFERS: TUB: Activity did not occur on this shift TRANSFERS: TUB - SCORE: 0-UNK LOCOMOTION: WALK: Activity did not occur on this shift LOCOMOTION: WALK - SCORE: 0-UNK LOCOMOTION: WHEELCHAIR: Activity did not occur on this shift LOCOMOTION: WHEELCHAIR - SCORE: 0-UNK LOCOMOTION: STAIRS: Activity did not occur on this shift LOCOMOTION: STAIRS - SCORE: 0-UNK COMPREHENSION: COMPREHENSION - SCORE: 0-UNK EXPRESSION EXPRESSION - SCORE: 0-UNK SOCIAL INTERACTION: SOCIAL INTERACTION - SCORE: 0-UNK PROBLEM SOLVING: PROBLEM SOLVING - SCORE: 0-UNK MEMORY: MEMORY - SCORE: 0-UNK SIGNATURE PANEL: The following modified sections: Transfers: Bed, Chair, Wheelchair - Score, Transfers: Toilet - Score , Locomotion: Walk - Score, Locomotion: Wheelchair - Score, Locomotion: Stairs - Score were [electron fredy] signed by Ramo Scott PT on SatFeb 07 2018 14:26:45 GMT-0600 (Central Standard Time)
[2018-02-07] MEDS: EZETIMIBE SIMVASTATIN PO SCH (20:02)
[2018-02-07] MEDS: GABAPENTIN 300 MG CAP PO SCH (20:02)
[2018-02-08] MEDS: MELATONIN 5 MG TABLET PO PRN (00:05)
--- NOTE | 2018-02-08 02:24 | FAST ---
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 Charles Sauceda M.D. 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 EATING: Activity did not occur on this shift EATING - SCORE: 0-UNK GROOMING: Activity did not occur on this shift GROOMING - SCORE: 0-UNK BATHING: Activity did not occur on this shift BATHING - SCORE: 0-UNK DRESSING - UPPER BODY: Patient is not dressing in public clothing ARTICLES SCORE Total number of steps: 0 DRESSING - UPPER BODY - SCORE: 0-UNK DRESSING - LOWER BODY: Patient is not dressing in public clothing ARTICLES SCORE Total number of steps: 0 DRESSING - LOWER BODY - SCORE: 0-UNK TOILETING: Activity did not occur on this shift TOILETING - SCORE: 0-UNK BLADDER MANAGEMENT: [place] removes incontinent device (Depends, pull ups, etc.); cleans the patient after accident / inco ntinent episode; and, applies new incontinent device. BLADDER MANAGEMENT - SCORE: 1-DEP BLADDER MANAGEMENT - FREQUENCY OF ACCIDENTS: BLADDER MANAGEMENT(FA) - STEP 1: How many accidents has the patient had during the current shift? 2 BOWEL MANAGEMENT: Activity did not occur on this shift BOWEL MANAGEMENT - SCORE: 7-IND TRANSFERS: BED, CHAIR, WHEELCHAIR: Activity did not occur on this shift TRANSFERS: BED, CHAIR, WHEELCHAIR - SCORE: 0-UNK TRANSFERS: TOILET: Activity did not occur on this shift TRANSFERS: TOILET - SCORE: 0-UNK TRANSFERS: SHOWER: Activity did not occur on this shift TRANSFERS: SHOWER - SCORE: 0-UNK TRANSFERS: TUB: Activity did not occur on this shift TRANSFERS: TUB - SCORE: 0-UNK LOCOMOTION: WALK: Activity did not occur on this shift LOCOMOTION: WALK - SCORE: 0-UNK LOCOMOTION: WHEELCHAIR: Activity did not occur on this shift LOCOMOTION: WHEELCHAIR - SCORE: 0-UNK COMPREHENSION: COMPREHENSION: TYPE: Both COMPREHENSION - STEP 1: Does the patient require help from a person or device, or need extra time to understand complex and a bstract ideas (such as current events, finances, discharge planning, medical issues, relationships, e tc)? Yes. COMPREHENSION - STEP 2: Does the patient require help to understand questions or statements about basic needs or ideas (such as hunger, thirst, sleep, safety, daily schedule, room location, or discomfort) half or more of the t vera? No. COMPREHENSION - STEP 3: How often does the patient need help to understand directions and conversation about basic needs? 10% - 24% of the time COMPREHENSION - SCORE: 4-MIN EXPRESSION EXPRESSION: TYPE: Both EXPRESSION - STEP 1: Does the patient require help from a person or device, or need extra time expressing complex and abst ract ideas (such as current events, finances, discharge planning, medical issues, relationships, etc) ? Yes. EXPRESSION - STEP 2: Does the patient require help to express basic necessities or ideas (such as hunger, thirst, sleep, s afety, daily schedule, room location, or discomfort) half or more of the time? No. EXPRESSION - STEP 3: How often does the patient need help to express directions and conversation about basic needs? 10-24% of the time EXPRESSION - SCORE: 4-MIN SOCIAL INTERACTION: SOCIAL INTERACTION - STEP 1: Does the patient require a helper to interact with others in social and therapeutic situations? Yes. SOCIAL INTERACTION - STEP 2: Does the patient interact appropriately half or more of the time? Yes. SOCIAL INTERACTION - STEP 3: How often does the patient need help to interact appropriately? Less than 10% of the time SOCIAL INTERACTION - SCORE: 5-SUP PROBLEM SOLVING: PROBLEM SOLVING - STEP 1: Does the patient need help from a person or device, or need extra time to solve complex problems such as managing a checking account or confronting interpersonal problems? Yes. PROBLEM SOLVING - STEP 2: Does the patient solve basic routine problems half or more of the time? Yes. PROBLEM SOLVING - STEP 3: How often does the patient need help to solve basic routine problems? Less than 10% of the time PROBLEM SOLVING - SCORE: 5-SUP MEMORY: MEMORY - STEP 1: Does the patient need help from a person or device, or need extra time to remember frequently encount ered people, daily routines, and executing requests? Yes. MEMORY - STEP 2: How often does the patient need help to remember frequently encountered people, daily routines, and e xecuting requests? Less than 10% of the time MEMORY - SCORE: 5-SUP
[2018-02-08] MEDS: METOPROLOL XL 25 MG TAB PO SCH (05:18)
[2018-02-08] MEDS: PANTOPRAZOLE 40MG TABLET PO SCH (06:34)
[2018-02-08 07:21] VITALS: BP 138/67; TEMP 98.7
[2018-02-08] MEDS: POLYETHYL GLY 3350 17 GM/DOSE PO SCH (07:22)
[2018-02-08] MEDS: INSULIN LISPRO 100 UNIT/1 ML SQ SCH ×2 (07:22→12:00)
[2018-02-08 07:23] LABS: Absolute Lymphocytes (CBC) 0.5 K/uL (0.7-4.9); Basophils % 0.2 % (0-1.3); Lymphocytes % 3.9 % (15.3-44.8); MCH 24.8 pg (27.0-35.0); MCV 76.5 fL (80-100); MPV 10.1 fL (7.6-11.3); Monocytes % 8.9 % (3.3-12.3); RBC Red Blood Cell Count 4.45 M/uL (4.33-5.43)
[2018-02-08] MEDS: HEPARIN 5000 UNIT/ML 1 ML VIAL SQ SCH (07:25)
[2018-02-08] MEDS: INSULIN GLARGINE 100 UNITS/ML SQ SCH (07:34)
[2018-02-08] MEDS: HYDROCODONE/APAP 5/325 MG TAB PO PRN (08:02)
[2018-02-08] MEDS: BACLOFEN 10 MG TAB PO SCH (08:02)
[2018-02-08] MEDS: GABAPENTIN 300 MG CAP PO SCH (08:02)
[2018-02-08] MEDS: ASPIRIN EC 81 MG TAB PO SCH (08:02)
[2018-02-08] MEDS: TAMSULOSIN 0.4 MG SR CAP PO SCH (08:03)
[2018-02-08] MEDS: FE SULF/FA/VIT B COMP & C TAB PO SCH (08:03)
[2018-02-08] MEDS: FERROUS SULFATE 325 MG TAB PO SCH (08:03)
[2018-02-08] MEDS: MAGNESIUM OXIDE 400 MG TAB PO SCH (08:04)
[2018-02-08] MEDS: FUROSEMIDE 20 MG TABLET PO SCH (08:04)
[2018-02-08] MEDS: PROMOD 30 ML DOSE PO SCH (08:05)
[2018-02-08] MEDS: NIFEDIPINE XL 30 MG TABLET PO SCH (08:05)
--- NOTE | 2018-02-08 11:49 | RAD REPORT ---
EXAM DESCRIPTION: Rudy Single View02/08/2018 11:28 am CLINICAL HISTORY: Fever/elevated white count COMPARISON: February 07 FINDINGS: The lungs appear clear of acute infiltrate. The heart is mildly enlarged. Postsurgical ch anges involve the chest. Moderate hiatal hernia IMPRESSION: No acute abnormalities displayed
[2018-02-08] MEDS ORDERED: PIPER/TAZO/NS 3.375gm 3.375 GM/100 ML BAG IVPB ONE (11:52)
[2018-02-08] MEDS ORDERED: NA CHLORIDE 0.9% 1,000 ML IV SCH (12:00)
--- NOTE | 2018-02-08 17:36 | PN ---
Earlier today, the nurse on the floor noted Mr. Lundy was more difficult to arouse or to maintain a wake state and less interactive and responsive. Vital signs did check well with his blood pressure 1 38/67, pulse was 98, and temperature was afebrile at 98.7, respiratory rate 16. However, the patient did have laboratory studies including repeat stat CBC showed an elevated white blood cell count to 1 1.5 from 7.0 with a neutrophil count increased from 72.6 to 87. His procalcitonin was elevated to 15 .14 with lactic acid elevated to 4.0, glucose ranged 186 to 148. His chest x-ray did not show any ac ho-chunk findings. No evidence of pneumonia. There were postsurgical changes involving the chest seen. He did have a lumbar spine x-ray done yesterday. That study showed prominent degenerative scoliotic changes in the lumbar spine. No unexpected findings or acute finding seen. Given the strong possibi lity of sepsis in this patient, I determined the patient should be discharged from the rehab floor an d admitted to ICU for acute care to involve antibiotics including the Rocephin, Zosyn and vancomycin as per the hospitalist, Dr. Wilder. Case was discussed with Dr. Hines and discharge is currently in [facility] from the rehab unit to admit to the ICU for telemetry monitoring in addition to ICU for close monitoring and IV antibiotics. At some point, it may be possible to obtain some cerebrospinal fluid . However, at this point, the patient's recent surgeries and the possibility of sepsis that will not be entertained. The patient will be treated for possibility of TRANSIT SPECIALIST involvement along with sepsis. This will be communicated with the patient and his family as well. BRADLEY/JIE Voice ID: [id number] Report ID: [id number]
== END 2018-02-08 13:10 | disposition short-term general hospital (02) | DRG 552 ==
LOC: 5TH 19:20
PROVIDERS: ADMIT Psychiatry & Neurology Neurology with Special Qualifications in Child Neurology; ATTEND Psychiatry & Neurology Neurology with Special Qualifications in Child Neurology
DX: M51.26 Other intervertebral disc displacement, lumbar region (principal); I12.9 Hypertensive chronic kidney disease with stage 1 through stage 4 chronic kidney disease, or unspecified chronic kidney disease; N18.3 Chronic kidney disease, stage 3 (moderate); M19.90 Unspecified osteoarthritis, unspecified site
CPT/HCPCS: 36415; 71045; 72100; 74018; 80048; 81001; 82040; 82962; 83605; 83735; 84134; 84145; 85025; 87040; 87077; 87086; 87088; 87186; 87205; 97110; 97116; 97124; 97163; 97167; 97530; J1644; J2543; J7030

== ENCOUNTER 2018-02-08 12:23 | Inpatient (IN) | payer OTHER, MEDICARE ==
--- OUTSIDE RECORDS SUMMARY | 2018-02-08 12:28 | XMS REPORT | Clinical Summary ---
:1945 Author Organization [facility] Address [address] [place] [address] Care Team Providers Name Role Phone Asked, [...] Encounters Date Type Specialty Care Team Description 02/07/2018 Intake Access N/A 01/31/2018 Anesthesia Event General Surgery Luisa Diamond CRNA 01/31/2018 Surgery General Surgery Thomas Covarrubias MD [id number] LAMINECTOMY AND DISCECTOMY 01/30/2018 Anesthesia Event Radiology Catina Gage MD 01/28/2018 Surgery Procedural Buck Herr Left heart cath w lv Cardiology MD brigitte Mccray [[id number] (CPT)] 01/23/2018 Orders Only Procedural [facility] Aby Og 01/20/2018 - Hospital Encounter General Internal Afia Catina Leg weakness, bilateral (Primary Dx); 02/05/2018 Medicine MD Kaylee Hyperkalemia; Kun Olmos MD Hyperglycemia; Back pain, lumbosacral; Secondary hypertension 01/11/2018 Intake Access N/A 02/18/2017 Office Visit Internal Medicine Antonia Solis, Low blood pressure, not hypotension (Primary Dx); Type 2 diabetes mellitus without complication, unspecified fci insulin use status; Stage 3 chronic kidney disease after 02/07/2017 Family History Medical History Relation Name Comments [...] Taken Blood Pressure 126/53 02/05/2018 2:55 PM SECURITY AND PRIVACY CONSULTANT Pulse 52 02/05/2018 2:55 PM SECURITY AND PRIVACY CONSULTANT Temperature 36.5 C (97.7 F) 02/05/2018 11:16 AM SECURITY AND PRIVACY CONSULTANT Respiratory Rate 18 02/05/2018 2:55 PM SECURITY AND PRIVACY CONSULTANT Oxygen Saturation 96% 02/05/2018 2:55 PM SECURITY AND PRIVACY CONSULTANT Inhaled Oxygen Concentration - - Weight 81 kg (178 lb 9 oz) 02/05/2018 6:00 AM SECURITY AND PRIVACY CONSULTANT Height 175.3 cm (5' 9") 01/31/2018 3:17 PM SECURITY AND PRIVACY CONSULTANT Body Mass Index 26.37 02/05/2018 6:00 AM SECURITY AND PRIVACY CONSULTANT Plan of Treatment Health Maintenance Due Date Last Done Comments DIABETIC RETINAL EYE EXAM 1945 DIABETIC FOOT EXAM 1953 COLON CANCER SCREENING 1993 SHINGRIX VACCINE (1 of 2) 1993 ZOSTER VACCINE 2003 PNEUMOCOCCAL POLYSACCHARIDE VACCINE AGE 65 AND OVER 2008 PNEUMOCOCCAL-13 2008 INFLUENZA VACCINE 10/02/2017 Implants Explanted 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 POC GLUCOSE Routine 02/05/2018 10:56 Results for this AM SECURITY AND PRIVACY CONSULTANT procedure are in the results section. POC GLUCOSE Routine 02/05/2018 7:53 Results for this AM SECURITY AND PRIVACY CONSULTANT procedure are in the results section. POC GLUCOSE Routine 02/05/2018 5:07 Results for this AM SECURITY AND PRIVACY CONSULTANT procedure are in the results section. ZINC LEVEL, SERUM Routine 02/05/2018 3:10 Results for this AM SECURITY AND PRIVACY CONSULTANT procedure are in the results section. VITAMIN D 25 HYDROXY Routine 02/05/2018 3:10 Results for this LEVEL AM SECURITY AND PRIVACY CONSULTANT procedure are in the results section. POC GLUCOSE Routine 02/05/2018 1:17 Results for this AM SECURITY AND PRIVACY CONSULTANT procedure are in the results section. POC GLUCOSE Routine 02/04/2018 9:20 Results for this PM SECURITY AND PRIVACY CONSULTANT procedure are in the results section. POC GLUCOSE Routine 02/04/2018 6:00 Results for this PM SECURITY AND PRIVACY CONSULTANT procedure are in the results section. POC GLUCOSE Routine 02/04/2018 12:16 Results for this PM SECURITY AND PRIVACY CONSULTANT procedure are in the results section. POC GLUCOSE Routine 02/04/2018 8:34 Results for this AM SECURITY AND PRIVACY CONSULTANT procedure are in the results section. POC GLUCOSE Routine 02/03/2018 9:47 Results for this PM SECURITY AND PRIVACY CONSULTANT procedure are in the results section. POC GLUCOSE Routine 02/03/2018 4:41 Results for this PM SECURITY AND PRIVACY CONSULTANT procedure are in the results section. POC GLUCOSE Routine 02/03/2018 12:13 Results for this PM SECURITY AND PRIVACY CONSULTANT procedure are in the results section. POC GLUCOSE Routine 02/03/2018 8:12 Results for this AM SECURITY AND PRIVACY CONSULTANT procedure are in the results section. ECG 12-LEAD STAT 02/02/2018 9:13 PM SECURITY AND PRIVACY CONSULTANT POC GLUCOSE Routine 02/02/2018 8:39 Results for this PM SECURITY AND PRIVACY CONSULTANT procedure are in the results section. TROPONIN STAT 02/02/2018 7:22 Results for this PM SECURITY AND PRIVACY CONSULTANT procedure are in the results section. ESTIMATED GFR STAT 02/02/2018 7:22 Results for this PM SECURITY AND PRIVACY CONSULTANT procedure are in the results section. PHOSPHORUS LEVEL STAT 02/02/2018 7:22 Results for this PM SECURITY AND PRIVACY CONSULTANT procedure are in the results section. LACTIC ACID LEVEL STAT 02/02/2018 7:22 Results for this PM SECURITY AND PRIVACY CONSULTANT procedure are in the results section. MAGNESIUM LEVEL STAT 02/02/2018 7:22 Results for this PM SECURITY AND PRIVACY CONSULTANT procedure are in the results section. COMPREHENSIVE STAT 02/02/2018 7:22 Results for this METABOLIC PANEL PM SECURITY AND PRIVACY CONSULTANT procedure are in the results section. POC GLUCOSE Routine 02/02/2018 4:47 Results for this PM SECURITY AND PRIVACY CONSULTANT procedure are in the results section. POC GLUCOSE Routine 02/02/2018 12:13 Results for this PM SECURITY AND PRIVACY CONSULTANT procedure are in the results section. POC GLUCOSE Routine 02/02/2018 12:04 Results for this PM SECURITY AND PRIVACY CONSULTANT procedure are in the results section. POC GLUCOSE Routine 02/02/2018 7:44 Results for this AM SECURITY AND PRIVACY CONSULTANT procedure are in the results section. POC GLUCOSE Routine 02/02/2018 4:02 Results for this AM SECURITY AND PRIVACY CONSULTANT procedure are in the results section. POC GLUCOSE Routine 02/01/2018 9:00 Results for this PM SECURITY AND PRIVACY CONSULTANT procedure are in the results section. POC GLUCOSE Routine 02/01/2018 5:24 Results for this PM SECURITY AND PRIVACY CONSULTANT procedure are in the results section. POC GLUCOSE Routine 02/01/2018 12:00 Results for this PM SECURITY AND PRIVACY CONSULTANT procedure are in the results section. POC GLUCOSE Routine 02/01/2018 9:22 Results for this AM SECURITY AND PRIVACY CONSULTANT procedure are in the results section. POC GLUCOSE Routine 01/31/2018 7:46 Results for this PM SECURITY AND PRIVACY CONSULTANT procedure are in the results section. XR LUMBAR SPINE 1 VW Routine 01/31/2018 6:22 Results for this PM SECURITY AND PRIVACY CONSULTANT procedure are in the results section. SURGICAL PATHOLOGY Routine 01/31/2018 6:03 Results for this REQUEST PM SECURITY AND PRIVACY CONSULTANT procedure are in the results section. XR LUMBAR SPINE 1 VW Routine 01/31/2018 5:41 Results for this PM SECURITY AND PRIVACY CONSULTANT procedure are in the results section. XR LUMBAR SPINE 1 VW Routine 01/31/2018 4:50 Results for this PM SECURITY AND PRIVACY CONSULTANT procedure are in the results section. ARTERIAL LINE Routine 01/31/2018 4:32 PM SECURITY AND PRIVACY CONSULTANT Procedure Note - Luisa Diamond CRNA - 01/31/2018 4:32 PM SECURITY AND PRIVACY CONSULTANT Arterial line Performed by: Luisa Diamond CRNA [...] the procedure well with no immediate complications AK AN ELECTIVE ENDOTRACHEAL AIRWAY Routine 01/31/2018 4:30 PM SECURITY AND PRIVACY CONSULTANT Procedure Note - Luisa Diamond CRNA - 01/31/2018 4:30 PM SECURITY AND PRIVACY CONSULTANT ANESTHESIA INTUBATION Date/Time: 01/31/2018 4:30 PM Performed by: Luisa Diamond CRNA Authorized by: Xavier Contreras II, MD Location: [place] Urgency: Elective Difficult Airway: No Performed by: resident/WIND FARM SUPPORT SPECIALIST/AA Preoxygenated with 100% O2: Yes C-spine Precautions [...] Routine 01/31/2018 3:10 Results for this PM SECURITY AND PRIVACY CONSULTANT procedure are in the results section. LAMINECTOMY, LUMBAR 01/31/2018 3:05 lucas PM SECURITY AND PRIVACY CONSULTANT POC GLUCOSE Routine 01/31/2018 2:09 Results for this PM SECURITY AND PRIVACY CONSULTANT procedure are in the results section. POC GLUCOSE Routine 01/31/2018 8:14 Results for this AM SECURITY AND PRIVACY CONSULTANT procedure are in the results section. POC GLUCOSE Routine 01/31/2018 5:05 Results for this AM SECURITY AND PRIVACY CONSULTANT procedure are in the results section. ESTIMATED GFR Routine 01/31/2018 4:00 Results for this AM SECURITY AND PRIVACY CONSULTANT procedure are in the results section. HC COMPLETE BLD COUNT Routine 01/31/2018 4:00 Results for this W/AUTO DIFF AM SECURITY AND PRIVACY CONSULTANT procedure are in the results section. BASIC METABOLIC PANEL Routine 01/31/2018 4:00 Results for this AM SECURITY AND PRIVACY CONSULTANT procedure are in the results section. TYPE AND SCREEN Routine 01/31/2018 12:29 Results for this AM SECURITY AND PRIVACY CONSULTANT procedure are in the results section. XR CHEST 1 VW PORTABLE STAT 01/30/2018 10:33 Results for this PM SECURITY AND PRIVACY CONSULTANT procedure are in the results section. POC GLUCOSE Routine 01/30/2018 9:56 Results for this PM SECURITY AND PRIVACY CONSULTANT procedure are in the results section. POC GLUCOSE Routine 01/30/2018 6:52 Results for this PM SECURITY AND PRIVACY CONSULTANT procedure are in the results section. PROTHROMBIN TIME WITH Routine 01/30/2018 1:30 Results for this INR PM SECURITY AND PRIVACY CONSULTANT procedure are in the results section. POC GLUCOSE Routine 01/30/2018 10:47 Results for this AM SECURITY AND PRIVACY CONSULTANT procedure are in the results section. POC GLUCOSE Routine 01/30/2018 8:58 Results for this AM SECURITY AND PRIVACY CONSULTANT procedure are in the results section. MRI LUMBAR SPINE W WO Routine 01/30/2018 8:31 Results for this CONTRAST AM SECURITY AND PRIVACY CONSULTANT procedure are in the results section. POC GLUCOSE Routine 01/30/2018 7:36 Results for this AM SECURITY AND PRIVACY CONSULTANT procedure are in the results section. ESTIMATED GFR Routine 01/30/2018 5:00 Results for this AM SECURITY AND PRIVACY CONSULTANT procedure are in the results section. HC COMPLETE BLD COUNT Routine 01/30/2018 5:00 Results for this W/AUTO DIFF AM SECURITY AND PRIVACY CONSULTANT procedure are in the results section. BASIC METABOLIC PANEL Routine 01/30/2018 5:00 Results for this AM SECURITY AND PRIVACY CONSULTANT procedure are in the results section. POC GLUCOSE Routine 01/29/2018 9:16 Results for this PM SECURITY AND PRIVACY CONSULTANT procedure are in the results section. POC GLUCOSE Routine 01/29/2018 5:15 Results for this PM SECURITY AND PRIVACY CONSULTANT procedure are in the results section. POC GLUCOSE Routine 01/29/2018 12:46 Results for this PM SECURITY AND PRIVACY CONSULTANT procedure are in the results section. POC GLUCOSE Routine 01/29/2018 8:11 Results for this AM SECURITY AND PRIVACY CONSULTANT procedure are in the results section. ESTIMATED GFR Routine 01/29/2018 4:55 Results for this AM SECURITY AND PRIVACY CONSULTANT procedure are in the results section. PHOSPHORUS LEVEL Routine 01/29/2018 4:55 Results for this AM SECURITY AND PRIVACY CONSULTANT procedure are in the results section. MAGNESIUM LEVEL Routine 01/29/2018 4:55 Results for this AM SECURITY AND PRIVACY CONSULTANT procedure are in the results section. BASIC METABOLIC PANEL Routine 01/29/2018 4:55 Results for this AM SECURITY AND PRIVACY CONSULTANT procedure are in the results section. HC COMPLETE BLD COUNT Routine 01/29/2018 4:55 Results for this W/AUTO DIFF AM SECURITY AND PRIVACY CONSULTANT procedure are in the results section. POC GLUCOSE Routine 01/28/2018 9:15 Results for this PM SECURITY AND PRIVACY CONSULTANT procedure are in the results section. POC GLUCOSE Routine 01/28/2018 5:45 Results for this PM SECURITY AND PRIVACY CONSULTANT procedure are in the results section. POC GLUCOSE Routine 01/28/2018 12:35 Results for this PM SECURITY AND PRIVACY CONSULTANT procedure are in the results section. POC GLUCOSE Routine 01/28/2018 9:30 Results for this AM SECURITY AND PRIVACY CONSULTANT procedure are in the results section. POC GLUCOSE Routine 01/28/2018 8:11 Results for this AM SECURITY AND PRIVACY CONSULTANT procedure are in the results section. CV BYPASS GRAFT LEFT Routine 01/28/2018 7:46 Results for this HEART AM SECURITY AND PRIVACY CONSULTANT procedure are in the results section. CV SELECTIVE CORONARY Routine 01/28/2018 7:46 Results for this ANGIOGRAPHY AM SECURITY AND PRIVACY CONSULTANT procedure are in the results section. CV LEFT HEART CATH LV Routine 01/28/2018 7:46 Results for this GRAM WITH CORS AM SECURITY AND PRIVACY CONSULTANT procedure are in the results section. POC GLUCOSE Routine 01/28/2018 4:49 Results for this AM SECURITY AND PRIVACY CONSULTANT procedure are in the results section. HC COMPLETE BLD COUNT Routine 01/28/2018 4:45 Results for this W/AUTO DIFF AM SECURITY AND PRIVACY CONSULTANT procedure are in the results section. ESTIMATED GFR Routine 01/28/2018 4:00 Results for this AM SECURITY AND PRIVACY CONSULTANT procedure are in the results section. BASIC METABOLIC PANEL Routine 01/28/2018 4:00 Results for this AM SECURITY AND PRIVACY CONSULTANT procedure are in the results section. POC GLUCOSE Routine 01/27/2018 8:57 Results for this PM SECURITY AND PRIVACY CONSULTANT procedure are in the results section. POC GLUCOSE Routine 01/27/2018 5:47 Results for this PM SECURITY AND PRIVACY CONSULTANT procedure are in the results section. POC GLUCOSE Routine 01/27/2018 12:48 Results for this PM SECURITY AND PRIVACY CONSULTANT procedure are in the results section. POC GLUCOSE Routine 01/27/2018 10:21 Results for this AM SECURITY AND PRIVACY CONSULTANT procedure are in the results section. POC GLUCOSE Routine 01/27/2018 8:20 Results for this AM SECURITY AND PRIVACY CONSULTANT procedure are in the results section. POC GLUCOSE Routine 01/26/2018 5:55 Results for this PM SECURITY AND PRIVACY CONSULTANT procedure are in the results section. POC GLUCOSE Routine 01/26/2018 4:33 Results for this PM SECURITY AND PRIVACY CONSULTANT procedure are in the results section. POC GLUCOSE Routine 01/26/2018 12:21 Results for this PM SECURITY AND PRIVACY CONSULTANT procedure are in the results section. POC GLUCOSE Routine 01/26/2018 8:04 Results for this AM SECURITY AND PRIVACY CONSULTANT procedure are in the results section. POC GLUCOSE Routine 01/25/2018 9:05 Results for this PM SECURITY AND PRIVACY CONSULTANT procedure are in the results section. POC GLUCOSE Routine 01/25/2018 5:21 Results for this PM SECURITY AND PRIVACY CONSULTANT procedure are in the results section. POC GLUCOSE Routine 01/25/2018 2:07 Results for this PM SECURITY AND PRIVACY CONSULTANT procedure are in the results section. POC GLUCOSE Routine 01/25/2018 12:42 Results for this PM SECURITY AND PRIVACY CONSULTANT procedure are in the results section. POC GLUCOSE Routine 01/25/2018 8:10 Results for this AM SECURITY AND PRIVACY CONSULTANT procedure are in the results section. ESTIMATED GFR Routine 01/25/2018 4:00 Results for this AM SECURITY AND PRIVACY CONSULTANT procedure are in the results section. BASIC METABOLIC PANEL Routine 01/25/2018 4:00 Results for this AM SECURITY AND PRIVACY CONSULTANT procedure are in the results section. HC COMPLETE BLD COUNT Routine 01/25/2018 4:00 Results for this W/AUTO DIFF AM SECURITY AND PRIVACY CONSULTANT procedure are in the results section. POC GLUCOSE Routine 01/24/2018 9:13 Results for this PM SECURITY AND PRIVACY CONSULTANT procedure are in the results section. POC GLUCOSE Routine 01/24/2018 4:20 Results for this PM SECURITY AND PRIVACY CONSULTANT procedure are in the results section. POC GLUCOSE Routine 01/24/2018 4:06 Results for this PM SECURITY AND PRIVACY CONSULTANT procedure are in the results section. POC GLUCOSE Routine 01/24/2018 3:03 Results for this PM SECURITY AND PRIVACY CONSULTANT procedure are in the results section. POC GLUCOSE Routine 01/24/2018 3:02 Results for this PM SECURITY AND PRIVACY CONSULTANT procedure are in the results section. POC GLUCOSE Routine 01/24/2018 8:35 Results for this AM SECURITY AND PRIVACY CONSULTANT procedure are in the results section. POC GLUCOSE Routine 01/24/2018 6:14 Results for this AM SECURITY AND PRIVACY CONSULTANT procedure are in the results section. POC GLUCOSE Routine 01/24/2018 4:56 Results for this AM SECURITY AND PRIVACY CONSULTANT procedure are in the results section. POC GLUCOSE Routine 01/23/2018 9:33 Results for this PM SECURITY AND PRIVACY CONSULTANT procedure are in the results section. POC GLUCOSE Routine 01/23/2018 6:28 Results for this PM SECURITY AND PRIVACY CONSULTANT procedure are in the results section. NM MYOCARDIAL Routine 01/23/2018 10:09 Results for this PERFUSION STRESS ONLY AM SECURITY AND PRIVACY CONSULTANT procedure are in the results section. CV STRESS TEST NUCLEAR Routine 01/23/2018 10:09 Results for this CARDIO AM SECURITY AND PRIVACY CONSULTANT procedure are in the results section. US CAROTID DUPLEX Routine 01/23/2018 7:35 Results for this BILATERAL AM SECURITY AND PRIVACY CONSULTANT procedure are in the results section. POC GLUCOSE Routine 01/23/2018 5:33 Results for this AM SECURITY AND PRIVACY CONSULTANT procedure are in the results section. POC GLUCOSE Routine 01/22/2018 10:38 Results for this PM SECURITY AND PRIVACY CONSULTANT procedure are in the results section. POC GLUCOSE Routine 01/22/2018 9:18 Results for this PM SECURITY AND PRIVACY CONSULTANT procedure are in the results section. POC GLUCOSE Routine 01/22/2018 5:35 Results for this PM SECURITY AND PRIVACY CONSULTANT procedure are in the results section. POC GLUCOSE Routine 01/22/2018 2:17 Results for this PM SECURITY AND PRIVACY CONSULTANT procedure are in the results section. CT LUMBAR SPINE W Routine 01/22/2018 11:43 Results for this CONTRAST AM SECURITY AND PRIVACY CONSULTANT procedure are in the results section. POC GLUCOSE Routine 01/22/2018 9:00 Results for this AM SECURITY AND PRIVACY CONSULTANT procedure are in the results section. HC COMPLETE BLD COUNT Routine 01/22/2018 5:40 Results for this W/AUTO DIFF AM SECURITY AND PRIVACY CONSULTANT procedure are in the results section. POC GLUCOSE Routine 01/22/2018 5:08 Results for this AM SECURITY AND PRIVACY CONSULTANT procedure are in the results section. ESTIMATED GFR Routine 01/22/2018 4:00 Results for this AM SECURITY AND PRIVACY CONSULTANT procedure are in the results section. MAGNESIUM LEVEL Routine 01/22/2018 4:00 Results for this AM SECURITY AND PRIVACY CONSULTANT procedure are in the results section. BASIC METABOLIC PANEL Routine 01/22/2018 4:00 Results for this AM SECURITY AND PRIVACY CONSULTANT procedure are in the results section. POC GLUCOSE Routine 01/21/2018 5:03 Results for this PM SECURITY AND PRIVACY CONSULTANT procedure are in the results section. URINALYSIS SCREEN AND STAT 01/21/2018 12:50 Results for this MICROSCOPY, WITH PM SECURITY AND PRIVACY CONSULTANT procedure are in REFLEX TO CULTURE the results section. URINE CULTURE STAT 01/21/2018 12:49 Results for this PM SECURITY AND PRIVACY CONSULTANT procedure are in the results section. POC GLUCOSE Routine 01/21/2018 12:41 Results for this PM SECURITY AND PRIVACY CONSULTANT procedure are in the results section. BLOOD CULTURE, AEROBIC Routine 01/21/2018 11:34 Results for this & ANAEROBIC AM SECURITY AND PRIVACY CONSULTANT procedure are in the results section. BLOOD CULTURE, AEROBIC Routine 01/21/2018 11:22 Results for this & ANAEROBIC AM SECURITY AND PRIVACY CONSULTANT procedure are in the results section. POC GLUCOSE Routine 01/21/2018 8:22 Results for this AM SECURITY AND PRIVACY CONSULTANT procedure are in the results section. ECHOCARDIOGRAM 2D Routine 01/21/2018 7:37 Results for this COMPLETE W MMODE AM SECURITY AND PRIVACY CONSULTANT procedure are in SPECTRAL COLOR DOPPLER the results (52209) section. POC GLUCOSE Routine 01/21/2018 4:21 Results for this AM SECURITY AND PRIVACY CONSULTANT procedure are in the results section. C-REACTIVE PROTEIN Routine 01/21/2018 4:00 Results for this AM SECURITY AND PRIVACY CONSULTANT procedure are in the results section. ESTIMATED GFR Routine 01/21/2018 4:00 Results for this AM SECURITY AND PRIVACY CONSULTANT procedure are in the results section. FOLATE RBC (GROUP Routine 01/21/2018 4:00 Results for this TEST) AM SECURITY AND PRIVACY CONSULTANT procedure are in the results section. VITAMIN B12 LEVEL Routine 01/21/2018 4:00 Results for this AM SECURITY AND PRIVACY CONSULTANT procedure are in the results section. THYROID STIMULATING Routine 01/21/2018 4:00 Results for this HORMONE AM SECURITY AND PRIVACY CONSULTANT procedure are in the results section. T4, FREE Routine 01/21/2018 4:00 Results for this AM SECURITY AND PRIVACY CONSULTANT procedure are in the results section. PHOSPHORUS LEVEL Routine 01/21/2018 4:00 Results for this AM SECURITY AND PRIVACY CONSULTANT procedure are in the results section. MAGNESIUM LEVEL Routine 01/21/2018 4:00 Results for this AM SECURITY AND PRIVACY CONSULTANT procedure are in the results section. HEMOGLOBIN A1C Routine 01/21/2018 4:00 Results for this AM SECURITY AND PRIVACY CONSULTANT procedure are in the results section. COMPREHENSIVE Routine 01/21/2018 4:00 Results for this METABOLIC PANEL AM SECURITY AND PRIVACY CONSULTANT procedure are in the results section. HC COMPLETE BLD COUNT Routine 01/21/2018 4:00 Results for this W/AUTO DIFF AM SECURITY AND PRIVACY CONSULTANT procedure are in the results section. SEDIMENTATION RATE STAT 01/21/2018 4:00 Results for this AM SECURITY AND PRIVACY CONSULTANT procedure are in the results section. POC GLUCOSE Routine 01/21/2018 3:46 Results for this AM SECURITY AND PRIVACY CONSULTANT procedure are in the results section. POC GLUCOSE Routine 01/20/2018 11:10 Results for this PM SECURITY AND PRIVACY CONSULTANT procedure are in the results section. US DUPLEX ARTERIAL STAT 01/20/2018 6:20 Results for this LOWER EXTREMITY PM SECURITY AND PRIVACY CONSULTANT procedure are in BILATERAL the results section. POC GLUCOSE Routine 01/20/2018 5:37 Results for this PM SECURITY AND PRIVACY CONSULTANT procedure are in the results section. US DUPLEX VENOUS LOWER STAT 01/20/2018 5:20 Results for this EXTREMITY BILATERAL PM SECURITY AND PRIVACY CONSULTANT procedure are in the results section. POC GLUCOSE Routine 01/20/2018 5:03 Results for this PM SECURITY AND PRIVACY CONSULTANT procedure are in the results section. POC GLUCOSE Routine 01/20/2018 4:35 Results for this PM SECURITY AND PRIVACY CONSULTANT procedure are in the results section. ECG 12-LEAD STAT 01/20/2018 4:07 Results for this PM SECURITY AND PRIVACY CONSULTANT procedure are in the results section. POC GLUCOSE Routine 01/20/2018 3:49 Results for this PM SECURITY AND PRIVACY CONSULTANT procedure are in the results section. ESTIMATED GFR STAT 01/20/2018 1:30 Results for this PM SECURITY AND PRIVACY CONSULTANT procedure are in the results section. COMPREHENSIVE STAT 01/20/2018 1:30 Results for this METABOLIC PANEL PM SECURITY AND PRIVACY CONSULTANT procedure are in the results section. HC COMPLETE BLD COUNT STAT 01/20/2018 1:30 Results for this W/AUTO DIFF PM SECURITY AND PRIVACY CONSULTANT procedure are in the results section. POC GLUCOSE Routine 02/18/2017 4:40 Type 2 diabetes Results for this PM SECURITY AND PRIVACY CONSULTANT mellitus without procedure are in complication, the results unspecified long section. term insulin use status ORTHOSTATIC VITAL Routine 02/18/2017 3:25 Low blood pressure, Results for this SIGNS PM SECURITY AND PRIVACY CONSULTANT not hypotension procedure are in the results section. HEMOGLOBIN A1C Routine 02/13/2017 10:00 Diabetes mellitus Results for this AM SECURITY AND PRIVACY CONSULTANT due to underlying procedure are in condition with the results complication, with section. long-term current use of insulin Essential hypertension COMPREHENSIVE Routine 02/13/2017 10:00 Essential Results for this METABOLIC PANEL AM SECURITY AND PRIVACY CONSULTANT hypertension procedure are in the results section. CBC WITH PLATELET AND Routine 02/13/2017 10:00 Essential Results for this DIFFERENTIAL AM SECURITY AND PRIVACY CONSULTANT hypertension procedure are in the results section. after 02/07/2017 Results ECG 12 lead (02/05/2018 12:57 PM SECURITY AND PRIVACY CONSULTANT)Only the most recent of2 resultswithin the time period is included. Ventricular rate 104 [facility] Atrial rate 104 [facility] AK interval 196 [facility] QRSD interval 148 [facility] QT interval 384 [facility] QTC interval 504 [facility] P axis 1 -6 [facility] QRS axis 1 250 [facility] T wave axis 46 [facility] EKG impression Sinus tachycardia with premature atrial complexes-Right bundle branch block-Abnormal ECG-In automated comparison with ECG of 02-FEB-2018 21:13, -premature atrial complexes are now present-AK interval has [facility] increased- Narrative Performed At Performing Organization Address City/[facility]/Zipcode Phone Number [facility] [address] [place] [address] POC glucose (02/05/2018 10:56 AM SECURITY AND PRIVACY CONSULTANT)Only the most recent of84 resultswithin the time period is included. POC glucose 293 (H) 65 - 99 mg/dL [facility] Comment: [facility] Notified RN Meter ID: [id number] Blanker Operator: Francois Farmer Performing Organization Address City/[facility]/Zipcode Phone Number [facility] DEPARTMENT OF PATHOLOGY AND [address] [place] [address] GENOMIC MEDIC[address] [address] Zinc level, serum (02/05/2018 3:10 AM SECURITY AND PRIVACY CONSULTANT) Zinc 59 (L) 60 - 120 ug/dL [facility] Comment: INTERPRETIVE INFORMATION: Zinc, Serum or Plasma Circulating zinc concentrations are dependent on albumin status and are depressed with malnutrition. Zinc may also be lowered with infection, inflammation, stress, oral contraceptives, and . Zinc may be elevated with zinc supplementation or fasting. Elevated zinc concentrations may interfere with copper absorption. Test developed and characteristics determined by [facility]. See Compliance Statement B: [employer]/ Performed by [facility], [address] [place] [address] www.[email or web address], Guanakito Robert MD - Lab. Director Specimen Blood Performing Organization Address [facility]/Zipcode Phone Number [facility] [address] [place] [address] [facility] [address] [place] [address] Vitamin D 25 hydroxy level (02/05/2018 3:10 AM SECURITY AND PRIVACY CONSULTANT) Vitamin D, 25-hydroxy 18.4 (L) 30.0 - 150.0 [facility] Comment: ng/mL HOSPITAL This assay reports the [...] alternative methods. Specimen Blood Performing Organization Address City/[facility]/Zipcode Phone Number [facility] DEPARTMENT OF PATHOLOGY AND [address] [place] [address] Estimated GFR (02/02/2018 7:22 PM SECURITY AND PRIVACY CONSULTANT)Only the most recent of9 resultswithin the time period is included. Estimated GFR 77 mL/min/1.73 m2 [facility] Comment: HOSPITAL CatergoryUnitsInterpretation G1 >=90 Normal or high G2 60-89Mildly decreased [id number] to moderately decreased R0b67-66Ejolziruox to severely decreased G4 15-29Severely decreased G5 <15Kidney failure The eGFR was calculated using the Chronic Kidney Disease Epidemiology Collaboration (CKD-EPI) equation. Interpretation is based on recommendations of the National Kidney Foundation-Kidney Disease Outcomes Quality Initiative (NKF-KDOQI) published in 2014. Specimen Plasma specimen Performing Organization Address City/[facility]/Zipcode Phone Number [facility] DEPARTMENT OF PATHOLOGY AND [address] [address] Troponin (02/02/2018 7:22 PM SECURITY AND PRIVACY CONSULTANT) Troponin <0.30 0.00 - 0.30 ng/mL [facility] Comment: 0.30 - 1.49 ng/mlMay indicate increased risk of acute coronary syndrome. >=1.5 ng/mlConsistent with acute myocardial infarction. The diagnostic value of a single normal or non-diagnostic result is questionable.Serial samples at 2-6 hour intervals are required to rule out acute myocardial injury. Specimen Plasma specimen Performing Organization Address City/[facility] Phone Number [facility] DEPARTMENT OF PATHOLOGY AND [address] [place] [id number] [place] [address] Phosphorus level (02/02/2018 7:22 PM SECURITY AND PRIVACY CONSULTANT)Only the most recent of3 resultswithin the time period is included. Phosphorus 3.5 2.4 - 4.5 mg/dL [facility] Specimen Plasma specimen Performing Organization Address City/[facility] Phone Number [facility] DEPARTMENT OF PATHOLOGY AND [address] [place] [address] Magnesium level (02/02/2018 7:22 PM SECURITY AND PRIVACY CONSULTANT)Only the most recent of4 resultswithin the time period is included. Magnesium 1.9 1.6 - 2.4 mg/dL [facility] Specimen Plasma specimen Performing Organization Address [facility] Phone Number [facility] DEPARTMENT OF PATHOLOGY AND [address] [place] [address] Lactic acid level (02/02/2018 7:22 PM SECURITY AND PRIVACY CONSULTANT) Lactic acid 2.4 (H) 0.5 - 2.2 mmol/L [facility] Specimen Plasma specimen Performing Organization Address [facility] Phone Number [facility] DEPARTMENT OF PATHOLOGY AND [address] [place] [address] Comprehensive metabolic panel (02/02/2018 7:22 PM SECURITY AND PRIVACY CONSULTANT)Only the most recent of4 resultswithin the time period is included. Sodium 135 135 - 148 mEq/L [facility] Potassium 4.7 3.5 - 5.0 mEq/L [facility] Chloride 98 98 - 112 mEq/L [facility] CO2 24 24 - 31 mEq/L [facility] Anion gap 13@ANIO 7 - 15 mEq/L [facility] BUN 27 (H) 8 - 23 mg/dL [facility] Creatinine 0.96 0.70 - 1.20 mg/dL [facility] Glucose 220 (H) 65 - 99 mg/dL [facility] Calcium 9.2 8.8 - 10.2 mg/dL [facility] Protein 6.2 (L) 6.3 - 8.3 g/dL [facility] Comment: HOSPITAL [place] 4.6-7.0 g/dL 1 week 4.4-7.6 g/dL 7 months-1year5.1-7.3 g/dL 1-2 years5.6-7.5 g/dL >3 years6.0-8.0 g/dL 18-150 6.3-8.3 g/dL Albumin 3.0 (L) 3.5 - 5.0 g/dL [facility] A/G ratio 0.9 0.7 - 3.8 [facility] Alkaline phosphatase 171 (H) 40 - 129 U/L [facility] AST 78 (H) 10 - 50 U/L [facility] ALT 110 (H) 5 - 50 U/L [facility] Total bilirubin 0.5 0.0 - 1.2 mg/dL [facility] Specimen Plasma specimen Performing Organization Address City/State/Zipcode Phone Number [facility] DEPARTMENT OF PATHOLOGY AND [address] [place] [address] GENOMIC MEDICINE [address] [address] XR Lumbar Spine 1 Vw (01/31/2018 6:22 PM SECURITY AND PRIVACY CONSULTANT)Only the most recent of3 resultswithin the time [...] spine for localization during lumbar spine surgery. [facility]-[id number] Procedure Note Interface, Radiology Results Incoming - 01/31/2018 6:49 PM SECURITY AND PRIVACY CONSULTANT EXAMINATION: XR LUMBAR SPINE 1 VW CLINICAL [...] spine for localization during lumbar spine surgery. [facility]-[id number] Performing Organization Address City/State/Zipcode Phone Number [facility] [address] [place] [address] Surgical pathology request (01/31/2018 6:03 PM SECURITY AND PRIVACY CONSULTANT) [facility] DEPARTMENT OF PATHOLOGY AND GENOMIC MEDICINE Surgical pathology report See link below for PDF [facility] DEPARTMENT OF Lab Report PATHOLOGY AND GENOMIC MEDICINE Result status This is Final Report [facility] DEPARTMENT OF for [id number] PATHOLOGY AND GENOMIC MEDICINE Performing Organization Address City/[facility]/Zipcode Phone Number [facility] DEPARTMENT OF PATHOLOGY AND [address] [place] [address] GENOMIC MEDICINE CBC with platelet and differential (01/31/2018 4:00 AM SECURITY AND PRIVACY CONSULTANT)Only the most recent of9 resultswithin the time period is included. WBC 4.55 4.50 - 11.00 k/uL [facility] RBC 5.40 4.40 - 6.00 m/uL [facility] HGB 13.3 (L) 14.0 - 18.0 g/dL [facility] HCT 44.1 41.0 - 51.0 % [facility] MCV 81.7 (L) 82.0 - 100.[address] [facility] MCH 24.6 (L) 27.0 - 34.[address] [facility] MCHC 30.2 (L) 31.0 - 37.0 g/dL [facility] RDW - SD 57.4 (H) 37.0 - 55.[address] [facility] MPV 10.5 8.8 - 13.[address] [facility] Platelet count 254 150 - 400 k/uL [facility] Nucleated RBC 0.00 /[address] [facility] Neutrophils 46.2 39.0 - 69.0 % [facility] Lymphocytes 31.0 25.0 - 45.0 % [facility] Monocytes 17.1 (H) 0.0 - 10.0 % [facility] Eosinophils 2.2 0.0 - 5.0 % [facility] Basophils 2.2 (H) 0.0 - 1.0 % [facility] Immature granulocytes 1.3 (H)Comment: 0.0 - 1.0 % [facility] "Immature HOSPITAL granulocytes" (promyelocytes, myelocytes, metamyelocytes) Specimen Blood Performing Organization Address [facility] Phone Number [facility] DEPARTMENT OF PATHOLOGY AND [address] [place] [address] Basic metabolic panel (01/31/2018 4:00 AM SECURITY AND PRIVACY CONSULTANT)Only the most recent of6 resultswithin the time period is included. Sodium 134 (L) 135 - 148 mEq/L [facility] Potassium 4.6 3.5 - 5.0 mEq/L [facility] Chloride 97 (L) 98 - 112 mEq/L [facility] CO2 23 (L) 24 - 31 mEq/L [facility] Anion gap 14@ANIO 7 - 15 mEq/L [facility] BUN 30 (H) 8 - 23 mg/dL [facility] Creatinine 1.22 (H) 0.70 - 1.20 mg/dL [facility] Glucose 162 (H) 65 - 99 mg/dL [facility] Calcium 9.6 8.8 - 10.2 mg/dL [facility] Specimen Plasma specimen Performing Organization Address [facility] Phone Number [facility] DEPARTMENT OF PATHOLOGY AND [address] [place] [address] Type and screen (01/31/2018 12:29 AM SECURITY AND PRIVACY CONSULTANT) ABO grouping AB [facility] Rh type POS [facility] Antibody screen (gel) NEG [facility] Performing Organization Address City/[facility] Cent[facility] Phone Number [facility] DEPARTMENT OF PATHOLOGY AND [address] [place] [address] XR Chest 1 Vw Portable (01/30/2018 10:33 PM SECURITY AND PRIVACY CONSULTANT) Narrative Performed At EXAMINATION:XR CHEST 1 VW PORTABLE [facility] CLINICAL HISTORY:Pre-op COMPARISON:September 04, 2016 IMPRESSION: 1.Heart size is within normal limits. There is been a sternotomy. 2.Retrocardiac density is probably related to hiatal hernia. 3.Vessels are not congested. No infiltrates are seen. [id number] Procedure Note Hm Interface, Radiology Results Incoming - 01/30/2018 10:45 PM SECURITY AND PRIVACY CONSULTANT EXAMINATION: XR CHEST 1 VW PORTABLE CLINICAL HISTORY: Pre-op COMPARISON: September 04, 2016 IMPRESSION: 1. Heart size is within normal limits. There is been a sternotomy. 2. Retrocardiac density is probably related to hiatal hernia. 3. Vessels are not congested. No infiltrates are seen. [id number] Performing Organization Address [facility] Cent[facility]ode Phone Number [facility] [address] [place] [address] Prothrombin time with INR (01/30/2018 1:30 PM SECURITY AND PRIVACY CONSULTANT) Prothrombin time 15.3 (H) 11.5 - 14.[address] [facility] INR 1.2 [facility] Comment: HOSPITAL The International Normalized Ratio (INR) is a therapeutic monitoring tool for patients who are stable on oral anticoagulant therapy. An INR of 2.0-3.0 is suggested for deep vein thrombosis/pulmonary embolism. Specimen Blood Performing Organization Address [facility] Centercomn Phone Number [facility] DEPARTMENT OF PATHOLOGY AND [address] [place] [address] [facility] [address] [place] [address] MRI Lumbar Spine W Wo Contrast (01/30/2018 8:31 AM SECURITY AND PRIVACY CONSULTANT) Narrative Performed At EXAMINATION:MRI LUMBAR SPINE W [...] narrowing. IMPRESSION: Severe multifactorial L3-4 canal narrowing. [facility] [employer] [facility] [facility] [id number] Procedure Note Hm Interface, Radiology Results Incoming - 01/30/2018 9:31 AM SECURITY AND PRIVACY CONSULTANT EXAMINATION: MRI LUMBAR SPINE W WO CONTRAST [...] narrowing. IMPRESSION: Severe multifactorial L3-4 canal narrowing. [employer] [id number] Performing Organization Address [facility] Centercomn Phone Number [facility] [address] [place] [address] Cv dairy laboratory technician procedure (01/28/2018 7:46 AM SECURITY AND PRIVACY CONSULTANT) Narrative Performed At LM- 70% HM [facility] [...] restraints and IV sedation. Performing Organization Address [facility] Phone Number [facility] [address] [place] [address] Cv stress test (01/23/2018 10:09 AM SECURITY AND PRIVACY CONSULTANT) Resting HR 62 [facility] Resting BP 129 [facility] Peak MET Achieved 1.0 [facility] Protocol Name MEGHAN [facility] Time in Exercise Phase 00:01:00 [facility] [...] Stress Test Impression -Waveform interpreted in report H MUSE associated with image study. No interpretation is provided as part of this Stress ECG report.-Electronically Signed By Graham Horta MD ([id number]), assignment desk editor Aby Hollis ([id number]) on 01/23/2018 2:11:55 PM Narrative Performed At Performing Organization Address City/State/Zipcode Phone Number [facility] [address] [place] [address] Nm myocardial perfusion (01/23/2018 10:09 AM SECURITY AND PRIVACY CONSULTANT) Narrative Performed At [facility] Nuclear Cardiology and Cardiac CT [address] [address] Myocardial Perfusion Imaging Report Stress ECG tracings are available in [employer], [employer] and [employer] All ECG interpretations are included in this report Pat.Name:TACHO CASTILLO RPat.ID:[id number] St.Date: 01/23/2018Exam Time: 9:00:00 AM Study Type:Myocardial Perfusion Imaging Height:69in BSA: 1.99 m2 DOBAge:1945,72Y Sex: MALEHR: 57 bpm HCT: 40.3 % Nuclear Tech:Bro Calderon, INSULATION BLOWER, ARRT(CT), EITAN Mtz, ARRT (CT) Pat. Stat.:Inpatient Nuclear Event ID:[id number] Order ID:[id number] Reason for Study:CAD, prior CABG, CAD, prior coronary artery stent History / Clinical:Coronary artery disease, Coronary artery stent, Coronary artery bypass surgery, Diabetes, Hyperlipidemia, Hypertension Procedures:Single Day Stress / Rest Race:C Risk Factors:Known Coronary Atherosclerosis, Diabetes, Cardiovascular Disease, Hyperlipidemia, Hypertension Clinical Symptoms:Regadenoson Surgery: Serum K+ Date,01/22/18 K 4.5/01/22/18 BUN 23, BUN/Creatinine Date,01/22/18 BUN 23/, BUN/Creatinine Date, 01/22/18/01/22/18 Creatinine 1.03 Medications:Lopressor, Lasix, Zestril SUMMARY: [...] Radiology Results In - 01/27/2018 8:36 AM [facility] Nuclear Cardiology and Cardiac CT [address] [place] [address] Myocardial Perfusion Imaging Report Stress ECG tracings are available in [employer], [employer] and [employer] All ECG interpretations are included in this report Pat.Name: TACHO CASTILLO Pat.ID: [id number] .Date: 01/23/2018 Exam Time: 9:00:00 AM Study Type:Myocardial Perfusion Imaging Height: 69in BSA: 1.99 m2 Age: 103/05/1945,72Y Sex: MALE HR: 57 bpm HCT: 40.3 % Nuclear Tech:EITAN Cobian, JAYDEN(CT), EITAN Mtz ARRT (CT) Pat. Stat.:Inpatient Nuclear Event ID:[id number] Order ID: [id number] Reason for Study:CAD, prior CABG, CAD, prior coronary artery stent History / Clinical:Coronary artery disease, Coronary artery stent, Coronary artery bypass surgery, Diabetes, Hyperlipidemia, Hypertension Procedures:Single Day Stress / Rest Race: C Risk Factors:Known Coronary Atherosclerosis, Diabetes, Cardiovascular Disease, Hyperlipidemia, Hypertension Clinical Symptoms:Regadenoson Surgery: Serum K+ , 01/22/18 K 4.5/01/22/18 BUN 23, BUN/Creatinine , [...] PM Patricia Nam MD Performing Organization Address City/State/Zipcode Phone Number [facility] [address] [place] [phone] Us carotid duplex (01/23/2018 7:35 AM SECURITY AND PRIVACY CONSULTANT) Narrative Performed At [facility] Vascular Ultrasound Laboratory Carotid Artery Duplex Report [address] [facility] [place] [address] For quality compliance coordinator purposes, the categorization of the degree of the stenosis of this exam is based on criteria described in the IAC carotid stenosis grading white paper( www.intersocietal.org/Vascular) and Boogie Caraballo, Nina Herbert, et al. Carotid artery stenosis: jimenez-scale and Doppler US diagnosis--Society of Radiologists in Ultrasound Consensus Conference. Radiology. 2003 Nov; 229(2):340-6. Pat.Name:TACHO CASTILLO [facility].ID:[id number] .Date: 01/23/2018Refer.MD:BUCK HERR MD Exam Time: 7:10:00 AMStudy Type:Carotid Height:81inDOBAge: 1945,72Y Sex: MALESonogrphr: FRANSISCO Elias Pat. Stat.:Inpatient TapeVol: , CPT - 4: 57677 Echo Event ID:[id number] Order ID:[id number] Reason for Study:Carotid artery disease; PMHx of DM, HTN, [place], CAD s/p x3 CABG in 2005, skin [...] Right ICA Dist ICA Dist PSV71.4 cm/Miguel Angel Dist EDV16.5 cm/s Right ICA Mid ICA Mid PSV 66.5 cm/Miguel Angel Mid EDV 11.6 cm/s Right ICA Prox ICA Prox PSV 135 cm/Miguel Angel Prox EDV16 cm/s Right Vertebral Vertebral PSV 64.9 cm/sVertebral EDV 14.9 cm/s Right Subclavian Subclavian PSV77.7 cm/sSubclavian EDV 0 cm/s Left CCA Dist CCA Dist PSV93.5 cm/sCCA Dist EDV11.1 cm/s Left CCA Mid CCA Mid HGH933 cm/sCCA Mid EDV 16 cm/s Left CCA [...] Radiology Results In - 01/23/2018 7:58 AM [facility] Vascular Ultrasound Laboratory Carotid Artery Duplex Report [address] [place] [address] For quality compliance coordinator purposes, the categorization of the degree of the stenosis of this exam is based on criteria described in the IAC carotid stenosis grading white paper( www.intersocietal.org/Vascular) and Flynn Caraballo., Keon CEmaB., et al. Carotid artery stenosis: jimenez-scale and Doppler US diagnosis--Society of Radiologists in Ultrasound Consensus Conference. Radiology. 2003 Jan; 229(2):340-6. Pat.Name: TACHO CASTILLO Pat.ID: [id number] St.Date: 01/23/2018 Refer.MD: BUCK HERR MD Exam Time: 7:10:00 AM Study Type:Carotid Height: 81in Age: 103/05/1945,72Y Sex: MALE Sonogrphr: Perry Callahan RVS Pat. Stat.:Inpatient Tape Vol: FE, CPT - 4: 07661 Echo Event ID:[id number] Order ID: [id number] Reason for Study:Carotid artery disease; PMHx of DM, HTN, WI, CAD s/p x3 CABG in 2006, skin cancer, CKD2 Procedures:Colorflow, Grayscale/2D, Pulsed wave [...] Organization Address City/State/Zipcode Phone Number [facility] [address] [place] [address] CT Lumbar Spine W Contrast (01/22/2018 11:43 AM SECURITY AND PRIVACY CONSULTANT) Narrative Performed At EXAMINATION: CT LUMBAR SPINE [...] stenosis. Additional degenerative changes are detailed above. [id number] Procedure Note Hm Interface, Radiology Results Incoming - 01/22/2018 12:56 PM SECURITY AND PRIVACY CONSULTANT EXAMINATION: CT LUMBAR SPINE W CONTRAST CLINICAL [...] stenosis. Additional degenerative changes are detailed above. [id number] Performing Organization Address City/State/Zipcode Phone Number [facility] [address] [place] [address] Urinalysis screen and microscopy, with reflex to culture (01/21/2018 12:50 PM SECURITY AND PRIVACY CONSULTANT) Specimen site Catheterized [facility] Color, UA Straw [facility] Appearance, UA Clear [facility] Specific gravity, UA 1.012 1.001 - 1.035 [facility] pH, UA 7.0 5.0 - 8.5 [facility] Protein, UA Negative Negative [facility] Glucose, UA 1+ (A) Negative [facility] Ketones, UA Negative Negative [facility] Bilirubin, UA Negative Negative [facility] Blood, UA Negative Negative [facility] Nitrite, UA Negative Negative [facility] Urobilinogen, UA 4.0 (A) <2.0 [facility] Leukocyte esterase, UA Negative Negative [facility] WBC, UA 1 0 - 1 /HPF [facility] RBC, UA <1 0 - 5 /HPF [facility] Bacteria, UA None seen None seen [facility] Yeast, UA None seen [facility] Yeast with pseudohyphae, UA None seen [facility] Hyaline casts, UA 1 /LPF [facility] Specimen Urine Performing Organization Address City/[facility]/Zipcode Phone Number [facility] DEPARTMENT OF PATHOLOGY AND [address] [place] [address] Urine culture (01/21/2018 12:49 PM SECURITY AND PRIVACY CONSULTANT) Urine culture SEE COMMENTComment: Bacteriuria [facility] screen negative. Performing Organization Address City/[facility]/Zipcode Phone Number [facility] DEPARTMENT OF PATHOLOGY AND [address] [place] [address] Blood culture, aerobic & anaerobic (01/21/2018 11:34 AM SECURITY AND PRIVACY CONSULTANT)Only the most recent of2 resultswithin the time period is included. Blood culture isolate No growth after 5 days of incubation. [facility] Comment: HOSPITAL Specimen Information Specimen Source: Blood Specimen Site: Hand, right Specimen Blood - Hand, right Performing Organization Address City/[facility] Cent[facility]ode Phone Number [facility] DEPARTMENT OF PATHOLOGY AND [address] [place] [address] Echocardiogram complete w contrast and 3D if needed (01/21/2018 7:37 AM SECURITY AND PRIVACY CONSULTANT) Narrative Performed At [facility] Echocardiography Report [address] [place] [address] [address] [address] Pat.Name:TACHO CASTILLO RPat.ID:[id number] .Date: 01/21/2018Refer.MD:KUN OLMOS MD Exam Time: 7:16:00 AMStudy Type:Routine Echo Height:69inWeight: 180lb BSA: 1.98 m2 DOBAge:1945,72Y Sex: MALEBP:181/79 HR:83 bpmSonogrphr: Frederic Boyle RDCS Pat. Stat.:Inpatient Room:[facility] Study Status:Final Echo Event ID:[id number] Order ID:[id number] Reason for Study:HEART FAILURE History / Clinical:Coronary [...] is RAPof 5mmHg. MEASUREMENTS: 2D Parasternal Long [place] LVOT 2.1 cmLA Ds3.8 cm LVIDd4.3 cmIndex2.2 cm/m Ao An2.2 cm LVIDs3.5 cmAo Rtd 3.7 cm Index1.9 cm/m LV%fs 18.6 % LV Psea359.3 g(122-174) IVSd 1.8 cmLVM Lkadl578.7 g/m2 LVPWd1.6 cmRWT0.7 LA Sng Plane LA Area 29.9 cm2(8.8-23.4) LA Vol 110.7 ml Index55.9 ml/m LA LngAx 6.6 cm RA Sng Plane RA Area 24.8 cm2(8.3-19.5) RA Vol80.9 ml Index40.9 ml/m RA LngAx 6.4 cm DOPPLER LVOT Stroke Vol LVOT 2.1 cmLVOT CO5.6 l/min LVOT TVI19.9 cmLVOT CI2.8 l/m/m2 LVOT Tm294 wmglDV88 bpm LVOT SV 68.9 ml AV For Flow/Valve Assess AV pkVel 195.6 cm/s (100-170) AV ET253 msec AV mnVel 111.1 cm/[place] AC/ET 0.2 AV pkPG 15.3 mmHgAV TVI28.1 cm AV Mean G6.7 mmHgAVpkAcRt 5823.7 cm/s2 AV AC 51 msec (83-118) Signed 01/21/2018 10:39 AM Sherman Ramirez M.D. Procedure Note Interface, Radiology Results In - 01/21/2018 10:39 AM [facility] Echocardiography Report [address] [place] [address] Pat.Name: TACHO CASTILLO Pat.ID: [id number] St.Date: 01/21/2018 Refer.MD: KUN OLMOS MD Exam Time: 7:16:00 AM Study Type:Routine Echo Height: 69in Weight: 180lb BSA: 1.98 m2 Age: 103/05/1945,72Y Sex: MALE BP: 181/79 HR: 83 bpm Sonogrphr: Frederic Boyle RDCS Pat. Stat.:Inpatient Room: [facility] Study Status:Final Echo Event ID:[id number] Order ID: [id number] Reason for Study:HEART FAILURE History / Clinical:Coronary [...] RAP of 5mmHg. MEASUREMENTS: 2D Parasternal [place] LVOT 2.1 cm LA Ds 3.8 cm [...] AM Sherman Ramirez M.D. Performing Organization Address City/[facility]/Zipcode Phone Number [facility] [address] [place] [address] Sedimentation rate (01/21/2018 4:00 AM SECURITY AND PRIVACY CONSULTANT) Sedimentation rate 26 (H) 0 - 10 mm/hr [facility] Specimen Blood Performing Organization Address City/[facility]/Zipcode Phone Number [facility] DEPARTMENT OF PATHOLOGY AND [address] [place] [address] [facility] [place] [id number] [place] [address] C-reactive protein (01/21/2018 4:00 AM SECURITY AND PRIVACY CONSULTANT) CRP 11.89 (H) 0.00 - 0.50 mg/dL [facility] Specimen Plasma specimen Performing Organization Address City/[facility] Phone Number [facility] DEPART[facility] AND [address] [place] [phone] [place] [phone] Thyroid stimulating hormone (01/21/2018 4:00 AM SECURITY AND PRIVACY CONSULTANT) TSH 1.46 0.27 - 4.20 uIU/mL [facility] Specimen Plasma specimen Performing Organization Address [facility] Cent[facility]ode Phone Number [facility] DEPARTMENT OF [facility]OLOGY AND [address] [place] [address] T4, free (01/21/2018 4:00 AM SECURITY AND PRIVACY CONSULTANT) T4, free 1.4 0.9 - 1.7 ng/dL [facility] Specimen Plasma specimen Performing Organization Address [facility] Phone Number [facility] DEPARTMENT OF PATHOLOGY AND [address] [place] [address] Hemoglobin A1c (01/21/2018 4:00 AM SECURITY AND PRIVACY CONSULTANT)Only the most recent of2 resultswithin the time period is included. Hemoglobin A1C 8.4 (H) 4.0 - 5.6 % [facility] Comment: HbA1c cutoffs for diagnosing diabetes: 4.0% - 5.6%=normal 5.7% - 6.4%=increased risk for diabetes (prediabetes) >=6.5%=diabetes Goals for glycemic control (ADA 2016) < 7.0%Target for non adults with diabetes. More or less stringent targets may be appropriate for individual patients. <7.5% Target for Children and adolescents with type 1 diabetes. Specimen Blood Performing Organization Address [facility] Cent[facility]ode Phone Number [facility] DEPART[facility] OF [facility]OLOGY AND [address] [place] [phone] Folate RBC (group test) (01/21/2018 4:00 AM SECURITY AND PRIVACY CONSULTANT) RBC folate 1,126 499 - 1,504 ng/mL [facility] Specimen Blood Performing Organization Address City/[facility] Cent[facility]ode Phone Number [facility] DEPARTMENT OF PATHOLOGY AND [address] [place] [address] Vitamin B12 level (01/21/2018 4:00 AM SECURITY AND PRIVACY CONSULTANT) Vitamin B12 1,136 (H) 211 - 946 pg/mL [facility] Comment: Significant overlap exists between normal and deficiency states. However, most patients with deficiencies will have Serum B12 <200 pg/mL. Specimen Serum Performing Organization Address City/State/Zipcode Phone Number [facility] DEPARTMENT OF PATHOLOGY AND [address] [place] [address] PV duplex arterial lower extremity (01/20/2018 6:20 PM SECURITY AND PRIVACY CONSULTANT) Narrative Performed At [facility] Vascular Ultrasound Laboratory Lower Extremity Arterial Duplex Report [address] [place] [address] Pat.Name:TACHO CASTILLO RPat.ID:[id number] .Date: 01/20/2018Refer.MD:PHYSICIAN, EMERGENCY, MD Exam Time: 5:06:00 PMStudy Type:LE Arterial Height:81inDOBAge: 1945,72Y Sex: MALESonogrphr: Tim Walsh, PARRIS, RVT Pat. Stat.:OutpatientRoom:ER 8 TapeVol: , [facility] - 4: [id number] Echo Event ID:[id number] Order ID:[id number] Reason for Study:Poor pulsation with edematous legs [...] Pedis TriphasicTriphasic Anterior TibialTriphasicTriphasic MEASUREMENTS: DOPPLER Right SEAL SKINNER prox SEAL SKINNER prox PSV 126 cm/s SEAL SKINNER Right SEAL SKINNER Prox 60 degLeft SEAL SKINNER Prox D60 deg Right SFA Prox SFA Prox PSV 107 cm/s SFA Right SFA Prox 60 degLeft SFA Mid Do60 deg Left SFA Dist D60 deg Right Pop Dist Pop Dist PSV 128 cm/s Popliteal Right Qdkjldqyy70 degLeft Popliteal 60 deg Right Umacmufmy22 deg Right Pop Prox Pop Prox PSV 153 cm/s Right TEST DECK SUPERVISOR Dist TEST DECK SUPERVISOR Dist PSV93 cm/s Tibial Post Right Tibial Po60 degLeft Tibial Pos60 deg Left Tibial Pos60 deg Right TEST DECK SUPERVISOR Prox TEST DECK SUPERVISOR Prox PSV84.9 cm/sPTA Prox PSV 108 cm/s Tibial Art Right Tibial Ar 0 degLeft Tibial Art60 deg Left Tibial Art60 deg Left SEAL SKINNER prox SEAL SKINNER prox PSV 139 cm/s SFA Dist SFA Dist PSV97 cm/s Left SFA Mid SFA Mid ZBF019 cm/s Left Pop Dist Pop Dist PSV 103 cm/s Left TEST DECK SUPERVISOR Dist TEST DECK SUPERVISOR Dist PSV77.1 cm/s TEST DECK SUPERVISOR Prox TEST DECK SUPERVISOR Prox PSV77 cm/s MILA Mid MILA Mid PSV 77 cm/s Left MILA Prox MILA Prox PSV89 cm/sATA Prox PSV89 cm/s Left Peroneal Mid Peroneal Mid PS95 cm/s Peroneal Left Peroneal M60 degLeft Peroneal P60 deg Left Peroneal Prox Peroneal Prox P87 cm/s Right SEAL SKINNER Dist SEAL SKINNER Dist PSV 126 cm/s Left SEAL SKINNER Dist SEAL SKINNER Dist PSV 139 cm/s Right Profunda Profunda PSV89 cm/s Left Profunda Profunda PSV90 cm/s Left SFA Prox SFA Prox PSV 214 cm/s Right SFA Mid SFA Mid TGL387 cm/s Right SFA Dist SFA Dist PSV 120 cm/s Left Pop Prox Pop Prox PSV 100 cm/s Right TEST DECK SUPERVISOR Mid TEST DECK SUPERVISOR Mid ENY632 cm/s Left TEST DECK SUPERVISOR Mid TEST DECK SUPERVISOR Mid PSV 99 cm/s Right TEST DECK SUPERVISOR Distal TEST DECK SUPERVISOR Distal PSV93 cm/s Left TEST DECK SUPERVISOR Distal TEST DECK SUPERVISOR Distal PSV77 cm/s Right Peroneal Prox Peroneal [...] Radiology Results In - 01/20/2018 11:27 PM [facility] Vascular Ultrasound Laboratory Lower Extremity Arterial Duplex Report [address] [place] [address] Pat.Name: TACHO CASTILLO Pat.ID: [id number] St.Date: 01/20/2018 Refer.MD: PHYSICIAN, EMERGENCY, MD Exam Time: 5:06:00 PM Study Type:LE Arterial Height: 81in Age: 103/05/1945,72Y Sex: MALE Sonogrphr: Tim Walsh, RDMS, RVT Pat. Stat.:Outpatient Room: ER 8 Tape Vol: , [facility] - 4: [address] Echo Event ID:[id number] Order ID: [id number] Reason for Study:Poor pulsation with edematous legs [...] Anterior Tibial Triphasic Triphasic MEASUREMENTS: DOPPLER Right SEAL SKINNER prox SEAL SKINNER prox PSV 126 cm/s SEAL SKINNER Right SEAL SKINNER Prox 60 deg Left SEAL SKINNER Prox D 60 deg Right SFA Prox SFA Prox PSV 107 cm/s SFA Right SFA Prox 60 deg Left SFA Mid Do 60 deg Left SFA Dist D 60 deg Right Pop Dist Pop Dist PSV 128 cm/s Popliteal Right Popliteal 60 deg Left Popliteal 60 deg Right Popliteal 60 deg Right Pop Prox Pop Prox PSV 153 cm/s Right TEST DECK SUPERVISOR Dist TEST DECK SUPERVISOR Dist PSV 93 cm/s Tibial Post Right Tibial Po 60 deg Left Tibial Pos 60 deg Left Tibial Pos 60 deg Right TEST DECK SUPERVISOR Prox TEST DECK SUPERVISOR Prox PSV 84.9 cm/s TEST DECK SUPERVISOR Prox PSV 108 cm/s Tibial Art Right Tibial Ar 0 deg Left Tibial Art 60 deg Left Tibial Art 60 deg Left SEAL SKINNER prox SEAL SKINNER prox PSV 139 cm/s SFA Dist SFA Dist PSV 97 cm/s Left SFA Mid SFA Mid PSV 123 cm/s Left Pop Dist Pop Dist PSV 103 cm/s Left TEST DECK SUPERVISOR Dist TEST DECK SUPERVISOR Dist PSV 77.1 cm/s TEST DECK SUPERVISOR Prox TEST DECK SUPERVISOR Prox PSV 77 cm/s MILA Mid MILA Mid PSV 77 cm/s Left MILA Prox MILA Prox PSV 89 cm/s MILA Prox PSV 89 cm/s Left Peroneal Mid Peroneal Mid PS 95 cm/s Peroneal Left Peroneal M 60 deg Left Peroneal P 60 deg Left Peroneal Prox Peroneal Prox P 87 cm/s Right SEAL SKINNER Dist SEAL SKINNER Dist PSV 126 cm/s Left SEAL SKINNER Dist SEAL SKINNER Dist PSV 139 cm/s Right Profunda Profunda PSV 89 cm/s Left Profunda Profunda PSV 90 cm/s Left SFA Prox SFA Prox PSV 214 cm/s Right SFA Mid SFA Mid PSV 128 cm/s Right SFA Dist SFA Dist PSV 120 cm/s Left Pop Prox Pop Prox PSV 100 cm/s Right TEST DECK SUPERVISOR Mid TEST DECK SUPERVISOR Mid PSV 114 cm/s Left TEST DECK SUPERVISOR Mid TEST DECK SUPERVISOR Mid PSV 99 cm/s Right TEST DECK SUPERVISOR Distal TEST DECK SUPERVISOR Distal PSV 93 cm/s Left TEST DECK SUPERVISOR Distal TEST DECK SUPERVISOR Distal PSV 77 cm/s Right Peroneal Prox [...] RPVI Performing Organization Address City/State/Zipcode Phone Number [facility] [address] [place] [address] PV duplex venous lower extremity (01/20/2018 5:20 PM SECURITY AND PRIVACY CONSULTANT) Narrative Performed At [facility] Vascular Ultrasound Laboratory Lower Extremity Venous Report [address] [place] [id number] Pat.Name:TACHO CASTILLO RPat.ID:[id number] .Date: 01/20/2018Refer.MD:PHYSICIAN, EMERGENCY, MD Exam Time: 4:37:00 PMStudy Type:LE Venous Height:81inDOBAge: 1945,72Y Sex: MALESonogrphr: Tim Walsh RDMS, RVT Pat. Stat.:OutpatientRoom:ER 8 TapeVol: , [facility] - 4: [address] Echo Event ID:[id number] Order ID:[id number] Reason for Study:Bilateral lower extremity edema. Procedures:Colorflow, [...] Radiology Results In - 01/20/2018 11:18 PM [facility] Vascular Ultrasound Laboratory Lower Extremity Venous Report [address] [place] [address] Pat.Name: TACHO CASTILLO Pat.ID: [id number] .Date: 01/20/2018 Refer.MD: PHYSICIAN, EMERGENCY, MD Exam Time: 4:37:00 PM Study Type:LE Venous Height: 81in Age: 103/05/1945,72Y Sex: MALE Sonogrphr: Tim Walsh RDMS, RVT Pat. Stat.:Outpatient Room: ER 8 Tape Vol: ST, [facility] - 4: [id number] Echo Event ID:[id number] Order ID: [id number] Reason for Study:Bilateral lower extremity edema. Procedures:Colorflow, [...] Organization Address City/State/Zipcode Phone Number [facility] [address] [place] [address] Orthostatic vital signs (02/18/2017 3:25 PM SECURITY AND PRIVACY CONSULTANT)after 02/07/2017 Insurance Payer Benefit Plan / Group Subscriber ID Type Phone Address MEDICARE MEDICARE PART A AND B xxxxxxxxxxx Medicare [place], [place] AAR AARP SUPPLEMENT xxxxxxxxxx Commercial Advance Directives Patient has advance care planning documents on file. For more information, please contact:Miguel Kevin[address] [place] [address]
--- OUTSIDE RECORDS SUMMARY | 2018-02-08 12:29 | XMS REPORT ---
:1945 [facility] Address [address] [place] [address] Care Team Providers Name Role Phone Unavailable [...]
[2018-02-08 13:37] VITALS: BMI 23.7
[2018-02-08] MEDS ORDERED: NALOXONE HCL 2 MG/2 ML VIAL ONE (14:38)
[2018-02-08] MEDS ORDERED: NALOXONE HCL 2 MG/2 ML VIAL IV ONE ×2 (14:53→15:02)
[2018-02-08] MEDS: ONDANSETRON 4 MG/2 ML VIAL IV PRN (14:57)
[2018-02-08] MEDS: NA CHLORIDE 0.9% 1,000 ML IV SCH (15:00)
[2018-02-08 15:30] LABS: Arterial Blood Carboxyhemoglob 1.6 % (0-1.5); Blood Gas Oxyhemoglobin 97.1 % (94-97); Blood O2 Saturation 99.1 % (92-98.5)
[2018-02-08 15:49] LABS: Absolute Lymphocytes (CBC) 0.3 K/uL (0.7-4.9); Absolute Monocytes 1.1 K/uL (0.1-1.3); Absolute Neutrophil 14.3 K/uL (1.8-8.0); Hematocrit 33.5 % (39.6-49.0); MCH 24.9 pg (27.0-35.0); MCV 76.1 fL (80-100); MPV 10.1 fL (7.6-11.3); Monocytes % 6.7 % (3.3-12.3)
[2018-02-08 16:13] LABS: Albumin 2.4 g/dL (3.4-5.0); Bilirubin Total 0.7 mg/dL (0.2-1.0); Potassium 4.1 mmol/L (3.5-5.1)
[2018-02-08 16:24] LABS: Blood Morphology Comment NOTED (NOT SEEN); Dohle Bodies PRESENT; Platelet Estimate ADEQ; Urine White Blood Cell Casts OK
[2018-02-08 16:25] LABS: Anisocytosis 2+
--- NOTE | 2018-02-08 18:12 | P.HP ---
Certification for Inpatient Patient admitted to: Inpatient With expected LOS: >2 Midnights Practitioner: I am a practitioner with admitting privileges, knowledge of patient current condition, hospital course, and medical plan of care. Services: Services provided to patient in accordance with Admission requirements found in Title 42 Section 412.3 of the Code of Federal Regulations Patient History Date of Service: 02/08/18 Reason for admission: Sepsis History of Present Illness: This is a 72-year-old male who had a recent laminectomy in [facility] about 1 week ago, was transferred to our rehab this morning. Upon arrival, this morning patient was found to be altered, confused and very sleepy. He met sepsis criteria and he was transferred to the ICU. I was unable to get any history from patient but stepdaughter and her were at bedside. Her stepdaughter, patient has a history of heavy alcohol use, also has a history of sneaking pain medications. She states that at [facility], he did get caught with home pain medications in his hospital room. They are not sure what pain medications he may have taken or how many. Upon further checking today, stepdaughter did find a bottle of Tylenol #4 and gabapentin in patient's belongings and she states that she has no idea who brought these to him or how they got there. 1 of those bottles belonged to his . At the time of my exam, patient was having very apneic breathing as he kept on falling asleep and he had pinpoint pupils. He was not alert nor oriented, was very confused. Allergies No Known Allergies Allergy (Verified 02/06/18 11:38) Home Medications: Baclofen [Lioresal*] 5 mg PO DAILY tab 02/08/18 Bisacodyl [Dulcolax*] 10 mg IN DAILY PRN supp 02/08/18 Codeine/APAP [Tylenol #3*] 1 tab PO Q4H PRN tab 02/08/18 Docusate/Senna [Senokot-S*] 2 tab PO BEDTIME PRN tab 02/08/18 Ferrous Sulfate [Ferrous Sulfate*] 325 mg PO DAILY tab 02/08/18 Furosemide [Lasix*] 20 mg PO DAILY tab 02/08/18 Heparin [Heparin Sodium*] 5,000 unit SQ Q12H vial 02/08/18 Hydrocodone 5/APAP 325 [[place]den 5/325*] 1 tab PO Q4H PRN tab 02/08/18 Insulin Glargine Human [Lantus*] 50 units SQ DAILY WITH BREAKFAST ml 02/08/18 Insulin Lispro [Humalog*] See Protocol SQ TIDWM ml 02/08/18 Iron/FA/Vit B-Com W/C [Hemocyte Plus*] 1 tab PO DAILY WITH BREAKFAST tab Magnesium Oxide [Mag 0X*] 400 mg PO BID tab 02/08/18 Melatonin 10 mg PO BEDTIME PRN PRN tablet 02/08/18 Metoprolol Succinate [Toprol Xl*] 25 mg PO [id number] tab 02/08/18 Nifedipine Xl [Procardia Xl*] 30 mg PO DAILY tab 02/08/18 Pantoprazole [Protonix Tab*] 40 mg PO DAILYAC tab 02/08/18 Polyethyl Gly 3350 [Glycolax*] 17 gm PO DAILY udbot 02/08/18 Tamsulosin [Flomax*] 0.4 mg PO DAILY cap 02/08/18 Trazodone [Desyrel*] 25 mg PO BEDTIME PRN PRN tablet 02/08/18 Vytorin 1 tab PO BEDTIME 02/08/18 traMADol HCL [Ultram*] 50 mg PO Q4H PRN tab 02/08/18 - Past Medical/Surgical History Has patient received pneumonia vaccine in the past: Yes Diabetic: Yes -: CAD s/p Stent -: arthritis -: CKD stage 3 -: HTN -: CABG -: Laminectomy - Family History Father -: Heart disease Mother -: Heart disease - Social History Smoking Status: Never smoker Alcohol use: Yes CD- Drugs: Yes Caffeine use: Yes Review of Systems is unable to be obtained Respiratory: Other (apneic breathing), As per HPI Neurological: Confusion Physical Examination - Vital Signs Temperature: 97.3 F Blood Pressure: 88/57 Pulse: 100 Respirations: 21 Pulse Ox (%): 98 - Physical Exam General: Confused, Other (Not alert, very confused.) HEENT: Atraumatic, Mucous membr. moist/pink, Other (Pinpoint pupils), EOMI, Sclerae nonicteric Neck: Supple, 2+ carotid pulse no bruit, No LAD, Without JVD or thyroid abnormality Respiratory: Other (apneic breathing) Cardiovascular: Regular rate/rhythm, Normal S1 S2 Gastrointestinal: Normal bowel sounds, No tenderness Musculoskeletal: No tenderness Integumentary: No rashes Neurological: Abnormal speech, Abnormal affect - Studies Laboratory Data (last 24 hrs) 02/08/18 15:33: Sodium 128 L, Potassium 4.1, BUN 60 H D, Creatinine 1.80 H, Glucose 195 H, Total Bilirubin 0.7, AST 111 H, ALT 127 H, Alkaline Phosphatase 339 H 02/08/18 15:33: WBC 15.7 H D, Hgb 10.9 L, Hct 33.5 L, Plt Count 179 02/08/18 15:33: Troponin I 0.12 H Assessment and Plan - Plan This is a 72-year-old male with: Sepsis shock Meets sepsis criteria with: Tachycardia, hypertension, and WBC count of 15.7. Unknown source at this time though could likely be secondary to laminectomy site. IV fluids, given as well as. Will continue maintenance fluids afterwards IV antibiotics with vancomycin and Zosyn. Pending blood cultures Pending chest x-ray Toxic metabolic encephalopathy. Altered mental status. Likely secondary to sepsis/shock/pain medication usage. Will monitor, was provided supportive care. If no improvement, may need MRI/ further imaging. Acute respiratory distress, secondary to decreased mentation Patient with apneic breathing as patient cannot stay awake. This could likely be secondary to overdose on pain medications. Will hold all medications at this time. Given Narcan x2, which seemed to help the patient wake up a. BiPAP ordered as needed. May need to intubate, if no improvement noted. Overdose on pain medication Patient with a history of sneaking pain medication to hospital room. Monitor for any medication usage Pinpoint pupils noted, apneic breathing. Responded a little to Narcan x2. Hold all pain medications at this time Hyponatremia Continue IV fluids, monitor with a.m. labs. Acute kidney injury Likely secondary to the hypotension. Continue IV fluids. Will continue to monitor. Patient creatinine normal levels 2 days ago Recent laminectomy Incision site clear, dry and intact. Will continue to monitor Elevated troponin levels Likely secondary to shock and hypotension. Will continue to monitor EKG Elevated LFTs Likely secondary to sepsis/shock DVT prophylaxis: Hold at this time GI prophylaxis: None Diet: NPO Disposition: Admit to ICU. Continue supportive care. Spoke to stepdaughter regarding code status, she is unsure what the medical power of ip technology transactions attorney is. She did speak to somebody status post making paperwork regarding this. Will need to confirm code status the patient once we have paperwork for MPOA. - Advance Directives Does patient have a Living Will: Yes Does patient have a Durable POA for Healthcare: No Physician Review: Patient Assessed, Agree with Above Assessment and Plan Time Spent Managing Pts Care (In Minutes): 55
[2018-02-08] MEDS ORDERED: VANCOMYCIN 1.75 GM in NA CHLORIDE 0.9% 500 ML IVPB SCH (18:30)
[2018-02-08] MEDS ORDERED: D50W 25 GM/50 ML SYRINGE IV PRN (18:40)
[2018-02-08] MEDS ORDERED: GLUCAGON 1 MG/VIAL IM PRN (18:40)
[2018-02-08] MEDS: PIPER/TAZO/NS 3.375gm 3.375 GM/100 ML BAG IVPB SCH (20:42)
[2018-02-09] MEDS ORDERED: PIPER/TAZO/NS 3.375gm 3.375 GM/100 ML BAG IVPB SCH (01:00)
[2018-02-09] MEDS: MORPHINE 2 MG/ML SYR IV PRN ×3 (01:51→09:50)
[2018-02-09] MEDS: NA CHLORIDE 0.9% 1,000 ML IV SCH ×2 (01:53→12:16)
[2018-02-09] MEDS: PIPER/TAZO/NS 3.375gm 3.375 GM/100 ML BAG IVPB SCH ×3 (04:52→21:02)
[2018-02-09 05:39] LABS: Absolute Lymphocytes (CBC) 0.4 K/uL (0.7-4.9); Absolute Monocytes 0.7 K/uL (0.1-1.3); Basophils % 0.1 % (0-1.3); Hematocrit 33.3 % (39.6-49.0); Lymphocytes % 4.9 % (15.3-44.8); MCH 25.5 pg (27.0-35.0); MCV 77.1 fL (80-100); MPV 10.3 fL (7.6-11.3); Monocytes % 9.1 % (3.3-12.3); RBC Red Blood Cell Count 4.32 M/uL (4.33-5.43)
[2018-02-09] MEDS: INSULIN -REGULAR HUMAN 50 UNIT/0.5 ML ML SQ SCH ×4 (06:00→18:00)
[2018-02-09 06:01] LABS: Albumin 2.3 g/dL (3.4-5.0); Bilirubin Total 0.6 mg/dL (0.2-1.0)
[2018-02-09] MEDS ORDERED: Levofloxacin500mg IV 500 MG/100 ML BAG IV ONE (06:43)
[2018-02-09 07:51] LABS: Magnesium 2.4 mg/dL (1.8-2.4); Phosphorus 2.7 mg/dL (2.5-4.9)
[2018-02-09 09:38] LABS: Platelet Estimate ADEQ; Urine White Blood Cell Casts OK
[2018-02-09 09:39] LABS: Anisocytosis 3+; Blood Morphology Comment NOTED (NOT SEEN); Elliptocytes 1+; Poikilocytosis 1+; Polychromasia 1+
[2018-02-09] MEDS ORDERED: KETOROLAC 30 MG/ML INJ IV ONE (10:10)
--- NOTE | 2018-02-09 11:29 | RAD REPORT ---
EXAM DESCRIPTION: RAD - Chest Single View - 02/09/2018 6:43 am CLINICAL HISTORY: SOB Chest pain. COMPARISON: Chest Single View dated 02/08/2018; Chest Single View dated 02/07/2018; Abdomen 1 View ([facility] B) dated 02/06/2018; Chest Pa And Lat (2 Views) dated 04/10/2016 FINDINGS: Portable technique limits examination quality. The lungs are grossly clear. The heart is normal in size. Prominent hiatal hernia is seen.Sternotomy wires present IMPRESSION: No acute intrathoracic process suspected.
--- NOTE | 2018-02-09 11:32 | P.PN ---
Subjective Date of Service: 02/09/18 Chief Complaint: Sepsis Subjective: No new changes, No C/O voiced, Improving Patient seen and examined at bedside. No family at bedside. Chart reviewed and case discussed with nursing staff. Much more awake and alert today. On nasal cannula Able to have conversation with me this morning. States that he is feeling a lot better Review of Systems As noted Physical Examination - Vital Signs Temperature: 98.5 F Blood Pressure: 141/68 Pulse: 100 Respirations: 22 Pulse Ox (%): 100 - Physical Exam General: Alert, In no apparent distress, Oriented x3 HEENT: Atraumatic, PERRLA, EOMI Neck: Supple, JVD not distended Respiratory: Clear to auscultation bilaterally, Normal air movement Cardiovascular: Regular rate/rhythm, Normal S1 S2 Gastrointestinal: Normal bowel sounds, No tenderness Musculoskeletal: No tenderness Integumentary: No rashes Neurological: Normal speech, Normal tone, Normal affect Lymphatics: No axilla or inguinal lymphadenopathy - Studies Laboratory Data (last 24 hrs) 02/09/18 07:43: Troponin I 0.12 H 02/09/18 04:49: Phosphorus 2.7, Magnesium 2.4 02/09/18 04:49: Sodium 136, Potassium 4.0, BUN 42 H, Creatinine 1.10, Glucose 87 , Total Bilirubin 0.6, AST 98 H, ALT 111 H, Alkaline Phosphatase 308 H 02/09/18 04:49: WBC 8.2 D, Hgb 11.0 L, Hct 33.3 L, Plt Count 167 02/08/18 23:24: Troponin I 0.10 H 02/08/18 15:33: Sodium 128 L, Potassium 4.1, BUN 60 H D, Creatinine 1.80 H, Glucose 195 H, Total Bilirubin 0.7, AST 111 H, ALT 127 H, Alkaline Phosphatase 339 H 02/08/18 15:33: WBC 15.7 H D, Hgb 10.9 L, Hct 33.5 L, Plt Count 179 02/08/18 15:33: Troponin I 0.12 H Microbiology Data (last 24 hrs): 02/08/18 18:30 Blood - Blood Anaerobic Blood Culture - Final 02/08/18 18:45 Blood - Blood Anaerobic Blood Culture - Final Assessment And Plan - Plan This is a 72-year-old male with: Sepsis shock: Improving Meets sepsis criteria with: Tachycardia, hypertension, and WBC count of 15.7. Unknown source at this time though could likely be secondary to laminectomy site versus urine. IV fluids, given as well as. Will continue maintenance fluids afterwards IV antibiotics with vancomycin and Zosyn. Blood cultures pending, will adjust antibiotics as needed. May consider switching Zosyn to Levaquin tomorrow Pending blood cultures Pending chest x-ray Bacteremia Blood cultures and Gram negative rods, sensitivities/culture final pending Will adjust antibiotics accordingly Toxic metabolic encephalopathy. Altered mental status. Improved Likely secondary to sepsis/shock/pain medication usage. Will monitor, was provided supportive care. If no improvement, may need MRI/ further imaging. Acute respiratory distress, secondary to decreased mentation: Much improved Patient with apneic breathing as patient cannot stay awake. This could likely be secondary to overdose on pain medications. Will hold all IV pain medications at this time. Given Narcan x2, which seemed to help the patient wake up a. BiPAP ordered as needed. May need to intubate, if no improvement noted. Overdose on pain medication Patient with a history of sneaking pain medication to hospital room. Monitor for any medication usage Pinpoint pupils noted, apneic breathing. Responded a little to Narcan x2. Hold all pain medications at this time Hyponatremia: Resolved Acute kidney injury: Resolved Likely secondary to the hypotension. Continue IV fluids. Will continue to monitor. Recent laminectomy Incision site clear, dry and intact. Will continue to monitor Pain control with oral tramadol Elevated troponin levels: Stable Likely secondary to shock and hypotension. Will continue to monitor EKG Elevated LFTs: Improving Likely secondary to sepsis/shock DVT prophylaxis: Lovenox GI prophylaxis: None Diet: 1800 diabetic diet Disposition: Continue supportive care in ICU. Spoke to sanju regarding code status, she is unsure what the medical power of senior attorney is. She did speak to somebody status post making paperwork regarding this. Will need to confirm code status the patient once we have paperwork for MPOA. Physician Review: Patient Assessed, Agree with Above Assessment and Plan Time Spent Managing PTS Care (In Minutes): 55
[2018-02-09] MEDS: ONDANSETRON 4 MG/2 ML VIAL IV PRN (11:51)
[2018-02-09 14:16] LABS: Urine Appearance CLEAR; Urine Bilirubin NEGATIVE (NEG); Urine Blood NEGATIVE (NEG); Urine Color YELLOW; Urine Glucose NEGATIVE (NEG); Urine Protein TRACE (NEG); Urine Urobilinogen 0.2 mg/dL (0.2-1.0); Urine pH 5.5 (5.0-7.0)
[2018-02-09 14:36] LABS: Urine Microscopic Reflex ORDER UMIC
[2018-02-09 14:48] LABS: Urine Bacteria 20-50 /HPF (NONE SEEN); Urine RBC NONE SEEN /HPF (NONE SEEN); Urine Yeast FEW (NONE SEEN)
[2018-02-09 14:49] LABS: Urine Culture Reflex Order REFLEXED
[2018-02-09] MEDS ORDERED: VANCOMYCIN 1.25 GM in NA CHLORIDE 0.9% 250 ML IVPB SCH (18:00)
[2018-02-09] MEDS: TRAMADOL HCL 50 MG TAB PO PRN ×2 (18:15→22:10)
[2018-02-09] MEDS: TEMAZEPAM 15 MG CAP PO PRN (22:11)
[2018-02-10] MEDS: NA CHLORIDE 0.9% 1,000 ML IV SCH ×5 (01:30→20:54)
[2018-02-10] MEDS: PIPER/TAZO/NS 3.375gm 3.375 GM/100 ML BAG IVPB SCH ×3 (04:55→20:57)
[2018-02-10] MEDS: TRAMADOL HCL 50 MG TAB PO PRN ×5 (05:37→23:44)
[2018-02-10 05:48] LABS: Absolute Lymphocytes (CBC) 0.4 K/uL (0.7-4.9); Absolute Monocytes 0.8 K/uL (0.1-1.3); Basophils % 0.2 % (0-1.3); Eosinophils % 0.2 % (0-4.4); Hematocrit 29.5 % (39.6-49.0); Lymphocytes % 4.6 % (15.3-44.8); MCH 25.3 pg (27.0-35.0); MCV 77.5 fL (80-100); MPV 10.3 fL (7.6-11.3); Monocytes % 9.3 % (3.3-12.3); RBC Red Blood Cell Count 3.81 M/uL (4.33-5.43)
[2018-02-10] MEDS ORDERED: VANCOMYCIN 1.25 GM in NA CHLORIDE 0.9% 250 ML IVPB SCH (06:00)
[2018-02-10] MEDS: INSULIN -REGULAR HUMAN 50 UNIT/0.5 ML ML SQ SCH ×5 (06:00→20:57)
[2018-02-10 06:05] LABS: Bilirubin Total 0.6 mg/dL (0.2-1.0); Protein, Total 5.4 g/dL (6.4-8.2)
--- NOTE | 2018-02-10 10:07 | P.PN ---
Subjective Date of Service: 02/08/18 Called to see patient because of agitation and blood cultures coming back with gram-negative rods. Urine cultures grew out Enterobacter. This is most likely with a blood cultures will grow out as well. Patient possibly with encephalopathy from the bacteremia. Will monitor very closely. Review of Systems 10-point ROS is otherwise unremarkable Physical Examination - Vital Signs Temperature: 99.1 F Blood Pressure: 156/58 Pulse: 100 Respirations: 11 Pulse Ox (%): 96 - Physical Exam General: Alert, In no apparent distress, Oriented x3 Respiratory: Clear to auscultation bilaterally, Normal air movement Cardiovascular: Regular rate/rhythm, Normal S1 S2, No murmurs Gastrointestinal: Normal bowel sounds, Soft and benign, Non-distended, No tenderness Musculoskeletal: No clubbing, No swelling Neurological: Normal gait, Normal strength at 5/5 x4 extr, Sensation intact, Cranial nerves 3-12 intact - Studies Laboratory Data (last 24 hrs) 02/10/18 04:44: Sodium 133 L, Potassium 4.0, BUN 22 H D, Creatinine 0.90, Glucose 143 H, Total Bilirubin 0.6, AST 161 H, ALT 179 H, Alkaline Phosphatase 437 H 02/10/18 04:44: WBC 8.2, Hgb 9.6 L, Hct 29.5 L, Plt Count 141 L Microbiology Data (last 24 hrs): 02/08/18 18:45 Blood - Blood Anaerobic Blood Culture - Final 02/08/18 18:30 Blood - Blood Anaerobic Blood Culture - Final Assessment & Plan - Problems (Diagnosis) (1) Bacteremia due to Enterobacter species Current Visit: Yes Status: Acute (2) Toxic encephalopathy Current Visit: Yes Status: Acute (3) Protrusion of intervertebral disc Current Visit: Yes Status: Acute (4) Status post laminectomy Current Visit: Yes Status: Acute - Plan 1. Continue with IV antibiotic 2. May need to check CT scan along with echocardiogram 3. Physical therapy consultation 4. Gentle IV hydration 5. Monitor CBC 6. Strict blood sugar monitoring 7. Pain control 8. Neurochecks-once infection is improved I think his mentation will get back to baseline 9. GI and DVT prophylaxis Discharge Plan: Home Plan to discharge in: Greater than 2 days - Advance Directives Does patient have a Living Will: Yes Does patient have a Durable POA for Healthcare: No - Code Status/Comfort Care Code Status Assessed: Yes Code Status: Full Code Physician Review: Patient Assessed, Agree with Above Assessment and Plan Critical Care: Yes Time Spent Managing PTS Care (In Minutes): 50
--- NOTE | 2018-02-10 11:38 | EKG ---
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
--- NOTE | 2018-02-10 12:20 | RAD REPORT ---
EXAM DESCRIPTION: MRI - Brain W/Wo Cont - 02/10/2018 12:09 pm CLINICAL HISTORY: AMS, PIN POINT PUPIL COMPARISON: None. TECHNIQUE: Sagittal and axial T1-weighted images were obtained. Axial PD/heavily T2-weighted and T2- FLAIR images were obtained along with axial DWI/ADC mapping sequences. Coronal heavily T2 weighted s equence obtained. Axial and coronal post-contrast T1-weighted images were also obtained. A 16 ml Mul tihance contrast following utilized. FINDINGS: No intracranial hemorrhage, mass or acute infarction. Diffusion-weighted imaging shows a m inimal area of hyperintense signal along the posteromedial margin of the right cerebellum. No correla te on ADC mapping wart T2 imaging. This is suspected to be a technical artifact. Patient has underlyi ng moderate atrophy and mild to moderate chronic ischemic change. No diffuse edema pattern is present . There is no shift of midline structures. No extra-axial fluid collections. Muhammad-matter/white matter junction is preserved. Signal voids are seen as a normal finding in the major intracranial vessels. Post-contrast view show no suspicious brain parenchymal or dural enhancement. There is a small enhanc ing focus in the posterior right cerebellum that is probably a normal vessel. A small venous angioma would be possible. This finding would not be contributing to the patient's acute clinical presentatio n. Mastoid air cells and paranasal sinuses are clear. IMPRESSION: No cerebral edema, mass, hemorrhage or other acute intracranial finding. No abnormality seen that would explain the pupil findings or altered mental status. Minimal signal abnormality on diffusion imaging in the posteromedial right cerebellum suspected to be artifact. Underlying atrophy and chronic ischemic change.
--- NOTE | 2018-02-10 12:25 | RAD REPORT ---
EXAM DESCRIPTION: MRI - MRA Head Wo Cont - 02/10/2018 12:08 pm CLINICAL HISTORY: AMS, pin point pupil COMPARISON: None. TECHNIQUE: Axial and coronal 3D [id number] image acquisition was performed. 3D rotational images were generated with source and reconstruction images reviewed. Horizontal and vertical axis rotation al views generated using MIP protocol. FINDINGS: Exam has motion degradation limitations. Major venous sinuses are patent. From skullbase determination the internal carotid artery show no significant stenosis or luminal narr owing. Patient has bilateral posterior communicating artery is present. There is persistent edin gin supply to the right posterior cerebral artery as a normal variant. The A1 segment of the right an terior cerebral artery is very small as a normal variant. No aneurysm or vascular malformation seen. When adjusting for the motion degradation, significant intracranial atherosclerotic changes not ident ifiable. No occlusion of the named branch. Basilar artery is quite tortuous but not stenotic. Right vertebral artery is dominant. IMPRESSION: Motion degraded study shows a mild degree of atherosclerotic change but no significant s tenosis or named branch occlusion. Basilar artery is tortuous though without stenosis. Right vertebral artery is dominant.
--- NOTE | 2018-02-10 12:27 | RAD REPORT ---
EXAM DESCRIPTION: MRI - MRA Neck W/Wo Cont - 02/10/2018 12:10 pm CLINICAL HISTORY: AMS, pin point pupil COMPARISON: None. TECHNIQUE: Axial and coronal 3D [id number] image acquisition was performed. 3D rotational images were generated with source and reconstruction images reviewed. Horizontal and vertical axis rotation al views generated using MIP protocol. FINDINGS: Aortic arch is bovine configuration. No significant stenosis at great vessel origins. Vert ebral artery origins are not well visualized due to technical factors. Right vertebral artery is the dominant vessel. Right vertebral artery is tortuous. No dissection or significant stenosis suspected in either vertebral artery. No common carotid artery stenosis or dissection. No stenosis of the left carotid bulb or proximal ICA . There are atherosclerotic changes at the right carotid bulb and right external carotid origin. Appr oximately 60% stenosis of the right carotid bulb is suspected. Distal to the bulb the internal carotid arteries show no stenosis or dissection. IMPRESSION: Approximately 60% stenosis of the right carotid bulb.
[2018-02-10] MEDS: Levofloxacin500mg IV 500 MG/100 ML BAG IV SCH (14:34)
--- NOTE | 2018-02-10 16:47 | P.PN ---
Subjective Date of Service: 02/10/18 Chief Complaint: Sepsis Subjective: No new changes, No C/O voiced, Improving Patient seen and examined at bedside. No family at bedside. Chart reviewed and case discussed with nursing staff. Awake and alert, oriented x3. off of nasal cannula. No concerns or complaints this morning Review of Systems As noted Physical Examination - Vital Signs Temperature: 98.9 F Blood Pressure: 165/74 Pulse: 94 Respirations: 16 Pulse Ox (%): 95 - Physical Exam General: Alert, In no apparent distress, Oriented x3 HEENT: Atraumatic, PERRLA, EOMI Neck: Supple, JVD not distended Respiratory: Clear to auscultation bilaterally, Normal air movement Cardiovascular: Regular rate/rhythm, Normal S1 S2 Gastrointestinal: Normal bowel sounds, No tenderness Musculoskeletal: No tenderness Integumentary: No rashes Neurological: Normal speech, Normal tone, Normal affect Lymphatics: No axilla or inguinal lymphadenopathy - Studies Laboratory Data (last 24 hrs) 02/10/18 04:44: Sodium 133 L, Potassium 4.0, BUN 22 H D, Creatinine 0.90, Glucose 143 H, Total Bilirubin 0.6, AST 161 H, ALT 179 H, Alkaline Phosphatase 437 H 02/10/18 04:44: WBC 8.2, Hgb 9.6 L, Hct 29.5 L, Plt Count 141 L Microbiology Data (last 24 hrs): 02/08/18 18:45 Blood - Blood Anaerobic Blood Culture - Final 02/08/18 18:30 Blood - Blood Anaerobic Blood Culture - Final Assessment And Plan - Plan This is a 72-year-old male with: Sepsis shock: Resolved Met sepsis criteria with: Tachycardia, hypertension, and WBC count of 15.7. Unknown source at this time though could likely be secondary to laminectomy site versus urine. Bacteremia with Enterobacter Blood cultures positive for Enterobacter. Antibiotics adjusted to continue Levaquin and Zosyn. Discontinue vancomycin. Echo ordered, pending Toxic metabolic encephalopathy. Altered mental status. Improved Likely secondary to sepsis/shock/pain medication usage. Will monitor, was provided supportive care. MRI with no acute abnormalities, to explain symptoms. Urinary tract infection with Enterobacter Continue IV antibiotics as above. Acute respiratory distress, secondary to decreased mentation: Resolved Patient initially with apneic breathing when falling asleep. This could likely be secondary to overdose on pain medications. Will hold all IV pain medications at this time. Given Narcan x2, which seemed to help the patient wake up. BiPAP ordered as needed. May need to intubate, if no improvement noted. Overdose on pain medication Patient with a history of sneaking pain medication to hospital room. Monitor for any medication usage Pinpoint pupils noted, apneic breathing. Responded a little to Narcan x2. Hold all narcotic pain medications at this time Hyponatremia: Resolved Acute kidney injury: Resolved Likely secondary to the hypotension. Continue IV fluids. Will continue to monitor. Recent laminectomy Stable, Will continue to monitor Pain control with oral tramadol Patient may need to return to rehab once medically stable Physical therapy consult placed Elevated troponin levels: Stable Likely secondary to shock and hypotension. Will continue to monitor EKG Elevated LFTs: Improving Likely secondary to sepsis/shock Right carotid bulb stenosis Noted on neck MRA. May need to be followed up as an outpatient. DVT prophylaxis: Lovenox GI prophylaxis: None Diet: 1800 diabetic diet Disposition: Stable enough to transfer to floor. Continue to monitor mentation , continue IV antibiotics. Pending symptomatic improvement. May need to return to rehab after medically stable. Physician Review: Patient Assessed, Agree with Above Assessment and Plan Time Spent Managing PTS Care (In Minutes): 45
[2018-02-10] MEDS: TEMAZEPAM 15 MG CAP PO PRN (20:55)
[2018-02-10] MEDS: PROMOD 30 ML DOSE PO SCH (20:58)
[2018-02-11] MEDS: TRAMADOL HCL 50 MG TAB PO PRN ×2 (03:47→10:18)
[2018-02-11] MEDS: PIPER/TAZO/NS 3.375gm 3.375 GM/100 ML BAG IVPB SCH ×3 (03:47→21:36)
[2018-02-11 04:06] LABS: Absolute Lymphocytes (CBC) 0.5 K/uL (0.7-4.9); Absolute Monocytes 0.6 K/uL (0.1-1.3); Absolute Neutrophil 6.8 K/uL (1.8-8.0); Basophils % 1.8 % (0-1.3); Eosinophils % 0.4 % (0-4.4); Hematocrit 29.2 % (39.6-49.0); MCH 25.2 pg (27.0-35.0); MCV 76.8 fL (80-100); MPV 9.7 fL (7.6-11.3); Monocytes % 7.8 % (3.3-12.3); RBC Red Blood Cell Count 3.81 M/uL (4.33-5.43)
[2018-02-11 04:25] LABS: ALT/SGPT 200 U/L (12-78); AST/SGOT 158 U/L (15-37); Albumin 1.9 g/dL (3.4-5.0); Alkaline Phosphatase 559 U/L (45-117); BUN Blood Urea Nitrogen 20 mg/dL (7-18); Bicarbonate 24 mmol/L (21-32); Bilirubin Total 0.7 mg/dL (0.2-1.0); Glucose Level 125 mg/dL (74-106); Potassium 3.9 mmol/L (3.5-5.1); Protein, Total 5.1 g/dL (6.4-8.2); Sodium Level 133 mmol/L (136-145)
[2018-02-11] MEDS ORDERED: POTASSIUM CL SA 10 MEQ TAB PO ONE (05:25)
[2018-02-11] MEDS: INSULIN -REGULAR HUMAN 50 UNIT/0.5 ML ML SQ SCH ×4 (07:30→21:35)
[2018-02-11] MEDS: PROMOD 30 ML DOSE PO SCH ×2 (09:00→21:34)
[2018-02-11] MEDS ORDERED: DOCUSATE NA/SENNA CONC 1 TAB PO PRN (11:51)
[2018-02-11] MEDS ORDERED: MELATONIN 5 MG TABLET PO PRN (11:51)
[2018-02-11] MEDS ORDERED: MORPHINE 2 MG/ML SYR IV ONE (12:00)
[2018-02-11] MEDS: NA CHLORIDE 0.9% 1,000 ML IV SCH (12:18)
[2018-02-11] MEDS: Levofloxacin500mg IV 500 MG/100 ML BAG IV SCH (17:21)
[2018-02-11] MEDS: HYDROCODONE/APAP 5/325 MG TAB PO PRN ×2 (17:25→21:32)
--- NOTE | 2018-02-11 17:29 | PN ---
Date of Progress Note: 02/11/2018 Subjective: Patient seen and examined. Chart reviewed and case discussed with RN. The patient complaining of significant amount of back pain likely secondary to recent laminectomy. It should be noted that the patient came in with altered mental status and has history of pain seeking behavior and had to be placed in the ICU and was given Narcan. Review of Systems: Negative except as above. Code Status: Full code. Medications: Reviewed. Physical Examination: Vital Signs: Temperature 99.8, heart rate 88, blood pressure 139/57, respirations 19, O2 96% on room air. General: Awake, alert, oriented x3, in moderate distress due to back pain. Elderly male. CV: S1 and S2. Regular rate and rhythm. No murmurs. Respiratory: Moving air well bilaterally. No wheezes, no stridor. Gastrointestinal: Abdomen is soft. Nontender and nondistended. Positive bowel sounds. Extremities: No clubbing, cyanosis, or edema. Neuro: Cranial nerves 2 through 12 intact grossly. No focal neurological deficit. Speech is normal. Musculoskeletal: Tenderness to palpation in the low back. Laboratory Data: Sodium 132, potassium 3.9, chloride 103, CO2 24, BUN 20, creatinine 0.8, glucose 125, calcium 7.7, AST 150, ALT 200, alkaline phosphatase 559, albumin 1.9. WBC 8, hemoglobin and hematocrit 9.6 and 29.2, platelets 148, neutrophils 84%. Neck MRA shows 60% stenosis of the right carotid bulb. Brain MRI with MRA shows motion degraded study with mild degree of atherosclerotic change but no significant stenosis or named branch occlusion. Basilar artery is tortuous though without stenosis. Right ventricular artery is dominant. Brain MRI shows no cerebral edema, mass, hemorrhage or other acute intracranial finding. Minimal signal abnormality on diffusion imaging in the posteromedial right cerebellum suspected to be artifact , underlying atrophy, and chronic ischemic change. Assessment: A 72-year-old male with: 1. Septic shock, resolved. The patient was septic on arrival was tachycardic , hypotensive, WBC count of 15.7, source likely laminectomy site versus urine. 2. Bacteremia with enterobacter. Antibiotics adjusted to Levaquin and Zosyn. Echocardiogram pending. 3. Toxic metabolic encephalopathy secondary to sepsis, improved. May also be related to medication usage. We will resume home dose of narcotics carefully, Narcan as needed. MRI does not show any acute brain abnormalities. 4. Urinary tract infection with enterobacter. 5. Acute respiratory distress secondary to decreased mentation, resolved. The patient initially had active breathing while asleep secondary to overdose on pain medications which has been slowly reintroduced. The patient still having a significant amount of back pain. We will switch to home dose of [place] and discontinue tramadol. We will continue antispasmodics. 6. Overdose on pain medication. We will continue Narcan as needed. 7. Hyponatremia, resolved. 8. Acute kidney injury, resolved, but secondary to hypotension. We will continue to monitor creatinine. 9. Recent laminectomy to adjust pain medications. Will return to rehab once medically stable. 10. Elevated troponin level secondary to septic shock and hypotension. No chest pain. 11. Elevated LFTs secondary to septic shock. LFTs currently trending up. We will continue to monitor. 12. Right carotid bulb stenosis noted on neck MRA. We will need outpatient followup. 13. Gastrointestinal and deep venous thrombosis prophylaxis addressed. Plan: Likely discharge to rehab in a.m. We will consult ID for antibiotic recommendations due to bacteremia. Will likely need minimum of 2 weeks of IV antibiotics. /JIE Voice ID: [id number] Report ID: [id number] SARMAD
[2018-02-11] MEDS: ENOXAPARIN 40 MG/0.4 ML SQ SCH (17:51)
--- NOTE | 2018-02-11 20:12 | CON ---
Subjective: This is a 72-year-old male. I was consulted for bacteremia secondary to enterobacter. The patient recently had laminectomy in [facility] about a week ago and was transferr ed for rehab services to [facility]. The patient was found to be in sepsis and was transferred to [facility] where blood culture grew enterobacter. The patient denies any constipation or diarrhea. Past Medical History: Significant for coronary artery disease, arthritis, chronic kidney disease, hy pertension, CABG, laminectomy. Social History: Negative for tobacco. Alcohol positive. Family History: Heart disease. Medications: Currently getting Levaquin and Zosyn. See MARs for other medication. Allergies: NO KNOWN DRUG ALLERGIES. Review of Systems: A 10-point review was performed. Physical Examination: General: This is a 72-year-old male, lying in bed, not in any acute cardiopulmonary distress. Vital Signs: Temperature 98, pulse 101, respirations 18, blood pressure 167/61. HEENT: Unremarkable. Neck: Supple. Lungs: Basal crackles. Heart: S1, S2. Regular. Abdomen: Soft. Bowel sounds present. Mildly distended. Extremities: No edema or muscle wasting noted. Laboratory Data: WBC 8000 down from 15,700, hemoglobin 9.6, platelets are 148. Chemistry shows sodi um 133, potassium 3.9, chloride 103, bicarb 24, BUN 20, creatinine 0.8, glucose 125. Albumin level i s 1.9. Micro data showing Enterobacter aerogenes in blood cultures 2/2, resistant to cefoxitin, cefa zolin, ampicillin, and Augmentin. Assessment And Plan: Sepsis with bacteremia secondary to Enterobacter aerogenes. Consider getting a CT abdomen to rule out any bowel obstruction or perforation. Continue antibiotic total of 2 weeks. Consider long-term acute care. We will follow the patient closely. Thank you Dr. Judge for the consult. VALENTIN/JIE Voice ID: [id number] Report ID: [id number]
[2018-02-11] MEDS ORDERED: KETOROLAC 30 MG/ML INJ IV ONE (22:07)
[2018-02-12] MEDS: TEMAZEPAM 15 MG CAP PO PRN ×2 (00:16→20:52)
[2018-02-12] MEDS: HYDROCODONE/APAP 5/325 MG TAB PO PRN ×4 (03:55→19:06)
[2018-02-12] MEDS: PIPER/TAZO/NS 3.375gm 3.375 GM/100 ML BAG IVPB SCH ×3 (03:56→20:51)
[2018-02-12 05:00] LABS: ALT/SGPT 212 U/L (12-78); AST/SGOT 139 U/L (15-37); Alkaline Phosphatase 742 U/L (45-117); BUN Blood Urea Nitrogen 17 mg/dL (7-18); Bicarbonate 25 mmol/L (21-32); Bilirubin Total 0.8 mg/dL (0.2-1.0); Glucose Level 185 mg/dL (74-106); Protein, Total 5.7 g/dL (6.4-8.2); Sodium Level 136 mmol/L (136-145)
[2018-02-12 05:02] LABS: Absolute Lymphocytes (CBC) 0.8 K/uL (0.7-4.9); Absolute Monocytes 0.7 K/uL (0.1-1.3); Absolute Neutrophil 7.7 K/uL (1.8-8.0); Basophils % 0.4 % (0-1.3); Eosinophils % 0.7 % (0-4.4); Hematocrit 33.9 % (39.6-49.0); Lymphocytes % 8.8 % (15.3-44.8); MCH 25.2 pg (27.0-35.0); MPV 10.4 fL (7.6-11.3); Monocytes % 7.1 % (3.3-12.3)
[2018-02-12] MEDS: METOPROLOL XL 25 MG TAB PO SCH (05:30)
[2018-02-12] MEDS: PANTOPRAZOLE 40MG TABLET PO SCH (05:30)
[2018-02-12] MEDS: INSULIN -REGULAR HUMAN 50 UNIT/0.5 ML ML SQ SCH ×4 (07:30→21:00)
[2018-02-12] MEDS ORDERED: BACLOFEN 10 MG TAB PO SCH (09:00)
[2018-02-12] MEDS: PROMOD 30 ML DOSE PO SCH ×2 (09:00→20:52)
[2018-02-12] MEDS: TAMSULOSIN 0.4 MG SR CAP PO SCH (09:16)
[2018-02-12] MEDS: NIFEDIPINE XL 30 MG TABLET PO SCH (09:17)
[2018-02-12] MEDS: FUROSEMIDE 20 MG TABLET PO SCH (09:17)
[2018-02-12] MEDS: FERROUS SULFATE 325 MG TAB PO SCH (09:18)
[2018-02-12] MEDS: POLYETHYL GLY 3350 17 GM/DOSE PO SCH (09:18)
[2018-02-12] MEDS: Levofloxacin500mg IV 500 MG/100 ML BAG IV SCH (17:41)
[2018-02-12] MEDS: ENOXAPARIN 40 MG/0.4 ML SQ SCH (17:42)
--- NOTE | 2018-02-12 19:04 | RAD REPORT ---
EXAM DESCRIPTION: CT - Abdomen Pelvis Wo Contrast - 02/12/2018 6:42 pm CLINICAL HISTORY: Abdominal pain. abd pain COMPARISON: CT ABD PELVIS W CONTRAST dated 08/10/2013; Lumbar Spine 3 Views dated 02/07/2018; Spine Lum bar Wo Con dated 01/11/2018 TECHNIQUE: CT imaging of the abdomen and pelvis was performed without contrast. Solid organ, bowel a nd vascular assessment is limited due to lack of IV and oral contrast. All CT scans are performed using dose optimization technique as appropriate and may include automated exposure control or mA/KV adjustment according to patient size. FINDINGS: Small bilateral pleural effusions are seen.Moderate axial hiatal hernia. Noncontrast liver assessment shows no focal mass or biliary dilatation. Cholelithiasis. The spleen, a drenal glands and kidneys are within normal limits. Mild pancreatic atrophy. No bowel obstruction, free air, free fluid or abscess. Moderate fecal retention in the colon. Normal appendix. Small bilateral fat containing inguinal hernias, larger on the right. Relatively recent postsurgical changes are seen at the level of L3. A focal fluid collection with sma ll air bubbles is seen adjacent to the posterior elements at the L3-4 level measuring 3.9 x 3.6 cm. S mall air bubbles are also seen within the epidural space of the lumbar canal. IMPRESSION: The patient has evidence of relatively recent postsurgical changes involving the posteri or elements at L3-4. A fluid collection is present in the region of the posterior elements with small air bubbles (3.9 x 3.6 cm). Small air bubbles are also seen in the anterior epidural space of the av mbar spine. While all the above findings could be due to the postoperative status of the patient, act ajay infection is also a possibility. MR lumbar spine without and with contrast would be helpful if in fection is a clinical concern in this region. Cholelithiasis. Moderate hiatal hernia. Trace bilateral pleural effusions. A limited non-contrast examination was performed as detailed.
--- NOTE | 2018-02-12 19:52 | PN ---
Date of Progress Note: 02/12/2018 Subjective: The patient is seen and examined. Chart reviewed, and case discussed with RN. The paco ent is a patient of Dr. Martin's, however, after speaking with Dr. Martin, he wants the patient to continue under Hospitalist Service as he will be going out of town tomorrow. The patient states he d oes not wish to return to rehab. Feels weak. Case Management and licensed clinical social worker to initiate a skille d nursing facility placement. No acute events overnight. The patient seems to be back to his baseli ne mental status. Medications: List reviewed. Physical Examination: Vital Signs: Temperature 97, heart rate 98, blood pressure 160/74, respirations 16, O2 of 96% on stephen m air. General: Awake, alert, oriented x3, not in any acute distress. An elderly male, somewhat ill-appear ing. CV: S1, S2. Peripheral pulses are present. No murmurs. Regular rate and rhythm. Respiratory: Clear to auscultation bilaterally. No wheezing or stridor. Gastrointestinal: Abdomen is soft, nontender, nondistended. Positive bowel sounds. Extremities: No clubbing, cyanosis, or edema. Neurologic: Nonfocal. Laboratory Data: Sodium 136, potassium 4, chloride 103, CO2 of 25, BUN 17, creatinine 0.7, glucose 1 85, calcium 8.1. AST 139, ALT 212, alkaline phosphatase 742, albumin 2. WBC 9.3, H and H 11.1 and 3 3.9, platelets 165, neutrophils 83%. Blood cultures growing enterobacter aerogenes. Assessment: A 72-year-old male with: 1.Septic shock, resolved. WBC count normalized. No longer tachycardic or hypotensive. Likely sour ce of infection is recent laminectomy site. The patient does have bacteremia secondary to Enterobact er aerogenes. Appreciate Dr. Kapoor's input. The patient will likely need IV antibiotics for 2 week s. 2.Bacteremia secondary to enterobacter. Continue IV antibiotics with Levaquin and Zosyn. Echocardi ogram pending. We will also obtain CT of abdomen and pelvis to rule out abdominal source. 3.Toxic metabolic encephalopathy secondary to sepsis, resolved. The patient's mental status is back to baseline. May also have been related to his narcotics. The patient did receive Narcan and impro isidro. MRI did not show any acute abnormalities. 4.Acute cystitis without hematuria secondary to enterobacter. Continue IV antibiotics. 5.Acute respiratory distress secondary to medication side effect with narcotics, possibly sepsis, im proved. The patient has been using more pain medications than prescribed. The patient is doing okay on the home dose of [place]. We will continue antispasmodics. 6.Overdose on pain medication, Narcan. We will continue Narcan p.r.n. 7.Hyponatremia, corrected. Continue to monitor sodium levels. 8.Acute kidney injury secondary to hypotension, resolved. Monitor creatinine. 9.Recent laminectomy. Site does not show any erythema or signs of infection. The patient is unwill ing to return to rehab. Will likely benefit from correction facility to continue physical thera py in lower intensity. 10.Elevated troponin level secondary to septic shock and hypotension. Denies any chest pain. 11.Elevated LFTs, likely secondary to septic shock. LFTs continue to trend up. We will continue to monitor. 12.Right carotid bulb stenosis. The patient will need outpatient followup. 13.Gastrointestinal and deep venous thrombosis prophylaxis addressed. SA/MODL Voice ID: [id number] Report ID: [id number]
[2018-02-13] MEDS: PIPER/TAZO/NS 3.375gm 3.375 GM/100 ML BAG IVPB SCH ×2 (03:05→12:53)
[2018-02-13] MEDS: HYDROCODONE/APAP 5/325 MG TAB PO PRN ×4 (03:05→21:18)
[2018-02-13 04:17] LABS: Absolute Lymphocytes (CBC) 0.5 K/uL (0.7-4.9); Absolute Monocytes 0.7 K/uL (0.1-1.3); Absolute Neutrophil 9.7 K/uL (1.8-8.0); Basophils % 0.2 % (0-1.3); Eosinophils % 0.2 % (0-4.4); Hematocrit 30.8 % (39.6-49.0); Lymphocytes % 4.6 % (15.3-44.8); MCH 25.3 pg (27.0-35.0); MCV 77.4 fL (80-100); MPV 9.7 fL (7.6-11.3); Monocytes % 6.2 % (3.3-12.3); RBC Red Blood Cell Count 3.99 M/uL (4.33-5.43)
[2018-02-13 04:32] LABS: ALT/SGPT 140 U/L (12-78); AST/SGOT 70 U/L (15-37); Albumin 1.9 g/dL (3.4-5.0); Alkaline Phosphatase 722 U/L (45-117); BUN Blood Urea Nitrogen 16 mg/dL (7-18); Bicarbonate 25 mmol/L (21-32); Bilirubin Total 0.8 mg/dL (0.2-1.0); Glucose Level 172 mg/dL (74-106); Potassium 3.8 mmol/L (3.5-5.1); Protein, Total 5.6 g/dL (6.4-8.2); Sodium Level 132 mmol/L (136-145)
[2018-02-13 04:56] LABS: Anisocytosis 2+; Blood Morphology Comment NOTED (NOT SEEN); Platelet Estimate ADEQ
[2018-02-13] MEDS ORDERED: POTASSIUM CL SA 10 MEQ TAB PO ONE (05:48)
[2018-02-13] MEDS: METOPROLOL XL 25 MG TAB PO SCH (06:36)
[2018-02-13] MEDS: PANTOPRAZOLE 40MG TABLET PO SCH (06:36)
[2018-02-13] MEDS: INSULIN -REGULAR HUMAN 50 UNIT/0.5 ML ML SQ SCH ×4 (07:30→20:13)
[2018-02-13] MEDS: TAMSULOSIN 0.4 MG SR CAP PO SCH (08:55)
[2018-02-13] MEDS: NIFEDIPINE XL 30 MG TABLET PO SCH (08:55)
[2018-02-13] MEDS: FERROUS SULFATE 325 MG TAB PO SCH (08:55)
[2018-02-13] MEDS: FUROSEMIDE 20 MG TABLET PO SCH (08:55)
[2018-02-13] MEDS: POLYETHYL GLY 3350 17 GM/DOSE PO SCH (08:56)
[2018-02-13] MEDS: PROMOD 30 ML DOSE PO SCH ×2 (08:56→20:13)
[2018-02-13] MEDS ORDERED: LORazepam 2 MG/ML VIAL ONE (14:30)
[2018-02-13] MEDS: Levofloxacin500mg IV 500 MG/100 ML BAG IV SCH (17:25)
[2018-02-13] MEDS: ENOXAPARIN 40 MG/0.4 ML SQ SCH (17:25)
--- NOTE | 2018-02-13 17:48 | RAD REPORT ---
EXAM DESCRIPTION: MRI - Spine Lumbar W/Wo Cont - 02/13/2018 3:23 pm CLINICAL HISTORY: Recent surgery, back pain, possible infection, patient unable to walk to the pain COMPARISON: MRI lumbar spine March 2013 TECHNIQUE: Sagittal T1-weighted, T2-weighted and T2-STIR weighted sequences were obtained. Axial T1- weighted and heavily T2-weighted sequences were obtained through the lumbar disc levels. Sagittal and axial post-contrast. T1-weighted images were obtained following 18ml of MultiHance contrast material . FINDINGS: Lumbar bodies are normal in height. There is minimal retrolisthesis of L2 on L3. Minimal e stephanie is seen in the superior aspect of the L4 body and in the inferior aspect of the L3 body. There i s faint enhancement present. This is believed to be degenerative and reactive edema. Osteomyelitis is not currently suspected. No conus abnormality. T12-L1 level: Disc is desiccated, no other significant finding L1-2 level: Disc is thinned and desiccated. Midline disc bulge is present extending into the right ex it foramen. No spinal stenosis or significant right foraminal encroachment. L2-3 level: Near-complete loss in disc height. Right foramen disc bulge present with mild foraminal s tenosis. Central canal is borderline stenotic. Significant disc, endplate and facet degenerative rudolph ge causes prominent left foramen stenosis. L3-4 level: There is right lateral subluxation of L3 relative to L4. Endplate degenerative changes ar e present. Hypointense T1 and hyperintense T2 signal present at this disc level. No abnormal disc enh ancement. There is a small 9 mm enhancing focus posterior to the disc margin and inferior endplate of L3. There is a 4 x 3 centimeter fluid collection in the posterior soft tissues at L3-4. Patient is status post posterior decompression at this level. There is some patchy enhancement of the surrounding soft tissues. No clearly defined abscess in the soft tissues posterior to the spine. There is low-level e nhancement seen in the soft tissues between the L3-4 bodies an the adjacent psoas musculature. No pso as abscess seen. There is a small 6 x 2 mm hypointense T1 collection with surrounding enhancing rim between the thecal sac and posterior wall of L4. A 12 x 3 mm similar collection is present between the thecal sac and t he posterior wall of L5. The peripheral rim of these 2 collections enhances on the postcontrast imagi ng. L4-5 level: Disc is desiccated without herniation or significant disc bulge. No significant foraminal stenosis. Canal is borderline stenotic. L5-S1 level: Disc is desiccated with a small annular fissure. No herniation or significant disc bulge . IMPRESSION: Two small epidural abscesses are identifiable along the posterior blanc of L4 and L5. Enhancing tissue between the psoas muscles and the L3-L4 vertebral bodies. This is believed to be inf ectious/inflammatory signal but not yet representing a paraspinal abscess. 4 x 3 centimeter postop fluid collection at the surgical decompression site between the skin and post erior elements at L3-4. This is not believed to be an abscess collection. L3-4 disc space does not show enhancement. Discitis and osteomyelitis are not currently suspected.
[2018-02-13] MEDS: VANCOMYCIN 1.25 GM in NA CHLORIDE 0.9% 250 ML IVPB SCH (20:13)
[2018-02-13] MEDS: TEMAZEPAM 15 MG CAP PO PRN (21:17)
--- NOTE | 2018-02-13 21:19 | PN ---
Subjective: The patient lying in bed. Just went to MRI for evaluation of his back for possible oste omyelitis. Denies any headache, nausea, vomiting. Not feeling that well as his appetite is not impr jaida. Objective: Vital Signs: Temperature 97.8, pulse 100, respirations 16, blood pressure 152/72. Lungs: Basal crackles. Heart: S1, S2 regular. Abdomen: Soft. Bowel sounds present. Extremities: Trace edema. Laboratory Data: WBC 10.9, hemoglobin 10.1, platelets are 180. Chemistry shows sodium 132, potassiu m 3.8, chloride 98, bicarb 25, BUN 16, creatinine 0.8, glucose 172. Micro data shows Enterobacter ae rogenes in blood cultures positive from 02/08. MRI results are pending. Assessment And Plan: Bacteremia secondary to Enterobacter aerogenes, currently being treated with Le vaquin and Zosyn. Abdominal CT done on 02/12 shows the patient has evidence of relatively recent pos tsurgical changes involving posterior elements of L3, L4. A fluid collection is present in the regio n of posterior elements of the small air bubbles 3.9-3.6 cm. Small air bubbles are also seen in the anterior epidural space, lumbar spine. While all the above finding could be due to postoperative sta tus of the patient, an active infection is also possible. MRI lumbar spine without and with contrast would be helpful. 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 Pending culture results. Continue antibi otic. Consider starting vancomycin. We will follow the patient closely. NF/MODL Voice ID: [id number] Report ID: [id number]
--- NOTE | 2018-02-13 21:49 | PN ---
Date of Progress Note: 02/13/2018 Subjective: The patient was seen and examined. Chart was reviewed and case discussed with RN and Dr Ema Kapoor with Infectious Disease. The patient is still somewhat lethargic-appearing according to the daughter, does not appear to be back to his baseline. I spoke with Dr. Martin, the patient's PCP, who also felt that the patient was not at his baseline. Hospitalist Service is covering for Dr. Julien chapman as he is out of town. The patient overall denies any significant pain, however, still very weak. Medications: List reviewed. Physical Examination: Vital Signs: Temperature 99.3, heart rate 110, blood pressure 149/72, respirations 16, O2 is 93% on room air. General: Awake, alert, and oriented x3 in mild distress, ill-appearing elderly male. CV: S1 and S2. Peripheral pulses present. Regular rate and rhythm. Respiratory: Moving air well bilaterally. No wheezing or stridor. Gastrointestinal: Abdomen is soft, nontender, nondistended. Positive bowel sounds. Extremities: No clubbing, cyanosis, or edema. Neuro: Nonfocal. Skin: Lumbar spine incision site is clean, dry, and intact with no surrounding erythema. Labs: Sodium 132, potassium 3.8, chloride 98, CO2 25, BUN 16, creatinine 3.8, glucose 172, calcium 8 .1, AST 70, ALT 140, alkaline phosphatase 722, albumin 1.9. WBC 10.9, H and H 10.1 and 30.8, platele ts 180, MCV 77.4, MCH 25.3, neutrophils 88.8%. Blood cultures growing enterobacter aerogenes sensiti ve to Cipro and Levaquin. MRI spine pending. Assessment And Plan: A 72-year-old male with. 1.Septic shock, resolved. WBC normalized. The patient is still somewhat tachycardic. Possible ingrid rce of infection is recent laminectomy site. The patient does have bacteremia with enterobacter. IV antibiotics have been adjusted. We will DC Zosyn and add vancomycin for possible infection through the lumbar incision site. We will obtain MRI to rule out any abscess or infection. ID on board. Th e patient will need IV antibiotics for a minimum of 2 weeks. We will obtain PICC line. 2.Enterobacter bacteremia. Continue Levaquin. DC Zosyn. We will add vancomycin. Echocardiogram p ending. CT abdomen and pelvis was viewed, showed postsurgical changes with fluid collection with jarret dence of small air bubbles, likely due to postoperative status of the patient; however, active infect ion is possibility. 3.Toxic metabolic encephalopathy secondary to sepsis, resolving. The patient's mental status is oscar se to baseline, however, still somewhat lethargic. MRI of brain negative. 4.Acute cystitis without hematuria secondary to enterobacter. Continue IV antibiotics. 5.Acute respiratory distress secondary to medication side effect with narcotics and possibly due to sepsis. Pain medications adjusted. Baclofen has been discontinued. The patient is doing well. The patient's O2 saturations are above 90. 6.Overdose on pain medication, improved with the Narcan. 7.Hyponatremia, corrected. Continue to monitor sodium levels. 8.Acute kidney injury secondary to hypotension, resolved. 9.Elevated liver function enzymes, likely due to hypotension, improving. We will continue to monito r. 10.Recent laminectomy. MRI of lumbar spine pending to rule out any abscess or infection. 11.Elevated troponin level secondary to septic shock and hypertension. No chest pain. 12.Right carotid bulb stenosis. We will need outpatient neurology followup. 13.Gastrointestinal and deep venous thrombosis prophylaxis addressed. Plan: PICC line placement. We will follow up with MRI of the lumbar spine. IV antibiotics adjusted . We will refer to a shelter facility for a long-term IV antibiotics and physical therapy. /JIE Voice ID: [id number] Report ID: [id number]
[2018-02-14] MEDS: HYDROCODONE/APAP 5/325 MG TAB PO PRN ×3 (04:17→12:29)
[2018-02-14] MEDS: PANTOPRAZOLE 40MG TABLET PO SCH (06:14)
[2018-02-14] MEDS: METOPROLOL XL 25 MG TAB PO SCH (06:14)
[2018-02-14 07:08] LABS: BUN Blood Urea Nitrogen 15 mg/dL (7-18); Bicarbonate 25 mmol/L (21-32); Glucose Level 234 mg/dL (74-106); Magnesium 1.9 mg/dL (1.8-2.4); Sodium Level 129 mmol/L (136-145)
[2018-02-14] MEDS: INSULIN -REGULAR HUMAN 50 UNIT/0.5 ML ML SQ SCH ×2 (08:11→11:58)
[2018-02-14] MEDS: POLYETHYL GLY 3350 17 GM/DOSE PO SCH (08:12)
[2018-02-14] MEDS: FERROUS SULFATE 325 MG TAB PO SCH (08:13)
[2018-02-14] MEDS: TAMSULOSIN 0.4 MG SR CAP PO SCH (08:13)
[2018-02-14] MEDS: NIFEDIPINE XL 30 MG TABLET PO SCH (08:14)
[2018-02-14] MEDS: FUROSEMIDE 20 MG TABLET PO SCH (08:14)
[2018-02-14] MEDS: PROMOD 30 ML DOSE PO SCH (08:16)
[2018-02-14] MEDS: VANCOMYCIN 1.25 GM in NA CHLORIDE 0.9% 250 ML IVPB SCH (10:11)
[2018-02-14 12:20] VITALS: BP 156/81; TEMP 97.6
[2018-02-14 12:32] VITALS: O2SAT 97
--- NOTE | 2018-02-14 17:59 | PN ---
Subjective: The patient is going to be transferred to [facility] for the patient was found t o have 2 small epidural abscesses at L4 and L5 region. No new acute events other than MRI. Objective: Vital signs: Temperature 98.7, pulse 97, respirations 16, blood pressure 160/96. Lungs: Basal crackles. Heart: S1, S2. Regular. Abdomen: Soft, nontender. Bowel sounds positive. Extremity: No edema. Impression/plan: Lumbar diskitis and epidural abscess. I agree with transferring the patient to the [facility] for further care. We will follow the patient as needed. Continue IV antibiotics . NF/MODL Voice ID: [id number] Report ID: [id number]
--- NOTE | 2018-02-15 12:28 | DS ---
Date of Discharge: 02/14/2018 Date of transfer to [facility], 02/14/2018. Sports Official: Dr. Kapoor, Infectious Disease. Admitting Diagnoses: 1.Septic shock. 2.Toxic metabolic encephalopathy. 3.Acute respiratory distress with hypoxia. 4.Overdose on pain medication. 5.Hyponatremia. 6.Acute kidney injury. 7.Recent laminectomy, lumbar spine. 8.Elevated troponin level. 9.Elevated LFTS. Discharge Diagnoses: 1.Septic shock, resolving. 2.Enterobacter bacteremia. 3.Spinal abscess from recent laminectomy, lumbar spine. 4.Toxic metabolic encephalopathy, improving. 5.Acute cystitis without hematuria. 6.Acute respiratory distress with hypoxia. 7.Overdose on pain medication, improved with Narcan. 8.Hyponatremia. 9.Acute kidney injury secondary to hypotension. 10.Shock liver due to hypotension. 11.Elevated troponin level secondary to sepsis and hypotension. 12.Right carotid bulb stenosis. Hospital Course: The patient is a 72-year-old male patient of Dr. Martin, who was admitted to the ospitalist Service over the weekend and had a recent laminectomy at [facility] approximately 1 week prior to admission. The patient was in rehab, however, found to be altered, confused, sleepy. The patient was transferred to the ICU for sepsis. The patient was thought to be taking pain medica tions on his own. He was given Narcan, which improved his condition, his mental status slightly, how ever, due to his sepsis, he was started on IV antibiotics. The likely source was due to his back wit h a recent history of instrumentation with laminectomy in the lumbar spine. The patient improved. H is white count also improved and normalized. He did have some respiratory distress and he was placed on supplemental oxygen. The patient did have some electrolyte abnormalities, which were corrected. He had some mild troponin elevation, which is thought to be due to sepsis. Did not have any acute E KG changes or chest pain. He did also develop some shock liver due to the hypotension. The patient' s kidney function recovered and normalized. His cultures grew out Enterobacter aerogenes, Infectious Disease, Dr. Kapoor was consulted to further elucidate the source of infection. MRI was done to rul e out any source from the back and he was found to have 2 small epidural abscesses along the posterio r blanc of the L4 and L5. Enhancing tissue between the psoas muscles and the L3-L4 vertebral bodies, believed to be infectious inflammatory signal, but not yet representing a paraspinal abscess. A 4 x 3 cm postop fluid collection; therefore, the patient required neurosurgical evaluation for his epidu ral abscess. Referral was sent to [facility] where his initial surgery had taken place recent ly. The patient was accepted, however, was unable to be transferred immediately due to bed availabil gloria, however, was transferred in the morning on 02/14/2018. Total time spent transferring the patient was 48 minutes. Physical Examination: General: Awake, alert, oriented x3. Some mild distress. Elderly male. CV: S1, S2. No murmurs. Respiratory: Moving air well bilaterally. Abdomen: Abdomen is soft, nontender, nondistended. Positive bowel sounds. Extremities: No clubbing, cyanosis, or edema. Neurologic: Nonfocal. Moves all 4 extremities. Skin: No rashes. Normal skin turgor. No erythema around the incision site at the lumbar spine. SA/MODL Voice ID: [id number] Report ID: [id number]
== END 2018-02-14 12:33 | disposition short-term general hospital (02) | DRG 871 ==
LOC: 3RD-ICU 12:23 → 4TH 02-10 13:45
PROVIDERS: ADMIT Family Medicine; ATTEND Family Medicine
DX: A41.59 Other Gram-negative sepsis (principal); R65.21 Severe sepsis with septic shock; G92 Toxic encephalopathy; K72.00 Acute and subacute hepatic failure without coma; G06.1 Intraspinal abscess and granuloma; N30.00 Acute cystitis without hematuria; E87.1 Hypo-osmolality and hyponatremia; N17.9 Acute kidney failure, unspecified; R06.03 Acute respiratory distress; R09.02 Hypoxemia; I95.9 Hypotension, unspecified; R79.89 Other specified abnormal findings of blood chemistry; I65.21 Occlusion and stenosis of right carotid artery; T39.1X1A Poisoning by 4-Aminophenol derivatives, accidental (unintentional), initial encounter; T42.6X1A Poisoning by other antiepileptic and sedative-hypnotic drugs, accidental (unintentional), initial encounter; R41.82 Altered mental status, unspecified; Y92.538 Other ambulatory health services establishments as the place of occurrence of the external cause; I12.9 Hypertensive chronic kidney disease with stage 1 through stage 4 chronic kidney disease, or unspecified chronic kidney disease; N18.3 Chronic kidney disease, stage 3 (moderate); I25.10 Atherosclerotic heart disease of native coronary artery without angina pectoris; Z95.5 Presence of coronary angioplasty implant and graft; Z95.1 Presence of aortocoronary bypass graft
CPT/HCPCS: 36415; 70544; 70549; 70553; 71045; 72158; 74176; 80048; 80053; 81003; 81015; 82805; 82962; 83735; 84100; 84484; 85025; 87040; 87077; 87086; 87088; 87186; 87205; 93005; 94660; 97110; 97163; 97530; A9577; J1650; J2270; J2310; J2405; J2543; J7030

== ENCOUNTER 2018-04-08 15:22 | Inpatient (IN) | payer OTHER, MEDICARE ==
--- OUTSIDE RECORDS SUMMARY | 2018-04-08 15:37 | XMS REPORT | Clinical Summary ---
:1945 Author Organization [facility] Address [address] [place] [address] Care Team Providers Name Role Phone German Martin MD Primary Care Provider Allergies No Known Allergies Medications Medication Sig Dispensed Refills Start Date End Date Status simvastatin Take 1 tablet (40 30 tablet 11 03/10/2018 03/10/19 Active (ZOCOR) 40 MG mg total) by 20 tablet mouth nightly. tamsulosin Take 1 capsule 0 03/11/2018 Active (FLOMAX) 0.4 mg (0.4 mg total) by capsule mouth daily. metoprolol Take 1 tablet (25 30 tablet 03/11/2018 03/11/19 Active succinate XL mg total) by 20 (TOPROL-XL) 25 mg mouth daily. 24 hr tablet NIFEdipine XL Take 1 tablet (60 30 tablet 11 03/11/2018 03/11/19 Active (PROCARDIA XL) 60 mg total) by 20 MG 24 hr tablet mouth daily. heparin Inject 1 mL 0 03/10/2018 Active sodium,porcine (5,000 Units (HEPARIN, total) under the PORCINE,) 5,000 skin every 12 unit/mL injection (twelve) hours. glucagon 1 mg/mL Inject 1 mg into 0 03/10/2018 Active recon soln the shoulder, thigh, or buttocks every 15 (fifteen) minutes as needed (give for hypoglycemia). ramelteon Take 1 tablet (8 30 tablet 11 03/10/2018 03/10/19 Active (ROZEREM) 8 mg mg total) by 20 tablet mouth nightly. dextrose 10 % Infuse 40 mL/hr 500 mL 0 03/10/2018 Active infusion into a venous catheter continuously as needed (bedside glucose LESS than 70 mg/dL). dextrose 50% Infuse 25 mL 0 03/10/2018 Active syringe (12.5 g total) into a venous catheter every 20 (twenty) minutes as needed (If blood glucose is between 41-69 mg/dL). dextrose 50% Infuse 50 mL (25 0 03/10/2018 Active syringe g total) into a venous catheter every 20 (twenty) minutes as needed (If blood glucose is 40 mg/dL or LESS). polyethylene Take 17 g by 60 packet 0 03/10/2018 04/09/19 Active glycol (MIRALAX) mouth 2 (two) 19 17 gram packet times a day for 30 days. bisacodyl Insert 1 0 03/10/2018 04/09/19 Active (DULCOLAX) 10 mg suppository (10 19 suppository mg total) into the rectum daily as needed for constipation for up to 30 days. sennosides-docusat Take 2 tablets by 120 tablet 03/10/2018 03/10/19 Active e sodium mouth 2 (two) 20 (SENOKOT-S) 8.6-50 times a day. mg per tablet ezetimibe (ZETIA) Take 1 tablet (10 30 tablet 03/10/2018 03/10/19 Active 10 mg tablet mg total) by 20 mouth nightly. furosemide (LASIX) Take 1 tablet (20 30 tablet 03/11/2018 03/11/19 Active 20 mg tablet mg total) by 20 mouth daily. magnesium oxide Take 1 tablet 60 tablet 03/10/2018 03/10/19 Active (MAG-OX) 400 mg (400 mg total) by 20 (241.3 mg mouth 2 (two) magnesium) tablet times a day. aspirin (ECOTRIN) Take 1 tablet (81 30 tablet 0 03/11/2018 04/10/19 Active 81 MG enteric mg total) by 19 coated tablet mouth daily for 30 days. pantoprazole Take 1 tablet (40 0 03/11/2018 Active (PROTONIX) 40 MG mg total) by EC tablet mouth daily. ascorbic acid, Take 1 tablet 30 tablet 03/11/2018 03/11/19 Active vitamin C, (1,000 mg total) 20 (VITAMIN C) 1000 by mouth daily. MG tablet insulin GLARGINE Inject 14 Units 10 mL 1 03/10/2018 03/10/19 Active (LANTUS) 100 under the skin 20 unit/mL injection daily. (vial) insulin lispro 3 units before 10 mL 1 03/10/2018 Active (HumaLOG) 100 breakfast only, unit/mL injection and sliding scale before all three meals naloxone (NARCAN) Infuse 0.5 mL 1 mL 0 03/10/2018 Active 0.4 mg/mL (0.2 mg total) injection into a venous catheter once as needed for opioid reversal or respiratory depression. tiZANidine Take 1 tablet (2 180 tablet 0 03/24/2018 04/23/19 Active (ZANAFLEX) 2 MG mg total) by 19 tablet mouth every 8 (eight) hours as needed for muscle spasms for up to 30 days. gabapentin Take 1 capsule 90 capsule 11 03/24/2018 03/24/19 Active (NEURONTIN) 100 mg (100 mg total) by 20 capsule mouth 3 (three) times a day. HYDROcodone-acetam Take 2 tablets by 120 tablet 0 03/24/2018 04/08/19 Active inophen (NORCO) mouth 4 (four) 19 10-325 mg per times a day for tablet 15 days. Max Daily Amount: 8 tablets morPHINE Take 1 tablet (15 0 03/24/2018 04/08/19 Active immediate-release mg total) by 19 15 MG tablet mouth every 4 (four) hours as needed for severe pain for up to 15 days. Max Daily Amount: 90 mg doxycycline Take 1 tablet 60 tablet 0 03/27/2018 04/26/19 Active (VIBRA-TABS) 100 (100 mg total) by 19 MG tablet mouth 2 (two) times a day for 30 days. ferrous sulfate Take 325 mg by 0 01/21/20 Discontinued 325 (65 FE) MG mouth daily as 18 tablet needed. testosterone Inject into the 0 01/21/20 Discontinued cypionate shoulder, thigh, 18 (DEPOTESTOTERONE or buttocks 2 CYPIONATE) 200 (two) times a mg/mL injection week. amLODIPine Take 1 tablet (10 30 tablet 09/11/2016 09/12/19 (NORVASC) 10 mg mg total) by 18 tablet mouth daily. ezetimibe-simvasta Take 1 tablet by 30 tablet 11 09/11/2016 01/21/20 Discontinued tin (VYTORIN) mouth nightly. 18 10-40 mg per tablet fenofibrate Take 1 tablet 30 tablet 11 09/11/2016 01/21/20 Discontinued (TRICOR) 145 MG (145 mg total) by 18 tablet mouth daily. insulin detemir Inject 30 Units 10 mL 3 09/11/2016 01/21/20 Discontinued (LEVEMIR) 100 under the skin 18 unit/mL injection every morning. metoprolol Take 0.5 tablets 30 tablet 11 09/11/2016 01/21/20 Discontinued tartrate (50 mg total) by 18 (LOPRESSOR) 100 mg mouth 2 (two) tablet times a day. omeprazole Take 1 capsule 30 capsule 11 09/11/2016 01/21/20 Discontinued (PriLOSEC) 40 MG (40 mg total) by 18 capsule mouth daily. aspirin 81 mg Chew 1 tablet (81 30 tablet 11 09/11/2016 09/12/19 chewable tablet mg total) daily. 18 lisinopril Take 1 tablet (20 30 tablet 11 02/18/2017 01/21/20 Discontinued (PRINIVIL,ZESTRIL) mg total) by 18 20 mg tablet mouth daily. insulin ASPART Inject 11 Units 10 mL 3 02/18/2017 01/21/20 Discontinued (NovoLOG) 100 under the skin 3 18 unit/mL injection (three) times a day before meals. acetaminophen-code TK 1 T PO BID 0 01/10/2018 01/21/20 Discontinued ine (TYLENOL WITH PRF PAIN 18 CODEINE #3) 300-30 mg per tablet gabapentin Take 300 mg by 0 01/08/2018 01/21/20 Discontinued (NEURONTIN) 300 mg mouth 3 (three) 18 capsule times a day. traMADol (ULTRAM) Take 1 tablet by 0 01/10/2018 01/21/20 Discontinued 50 mg tablet mouth 3 (three) 18 times a day as needed. acetaminophen-code Take 1 tablet by 0 02/06/20 Discontinued ine (TYLENOL WITH mouth 2 (two) 18 CODEINE #4) 300-60 times a day as mg per tablet needed for moderate pain. ezetimibe-simvasta Take 1 tablet by 0 02/06/20 Discontinued tin (VYTORIN) mouth nightly. 18 10-40 mg per tablet gabapentin Take 300 mg by 0 02/06/20 Discontinued (NEURONTIN) 300 mg mouth 3 (three) 18 capsule times a day. insulin ASPART Inject 5 Units 0 02/06/20 Discontinued (NovoLOG) 100 under the skin 3 18 unit/mL injection (three) times a day before meals. insulin detemir Inject 70 Units 0 02/06/20 Discontinued U-100 (LEVEMIR) under the skin 18 100 unit/mL every morning. injection insulin detemir Inject 30 Units 0 02/06/20 Discontinued U-100 (LEVEMIR) under the skin 18 100 unit/mL every evening. injection lisinopril Take 20 mg by 0 02/06/20 Discontinued (PRINIVIL,ZESTRIL) mouth daily. 18 20 mg tablet (Patient was not sure if he takes this medication at home) metoprolol Take 50 mg by 0 02/06/20 Discontinued tartrate mouth 2 (two) 18 (LOPRESSOR) 100 mg times a day. tablet (Patient was not sure if he takes this medication at home) testosterone Inject 200 mg 0 02/06/20 Discontinued cypionate into the 18 (DEPOTESTOTERONE shoulder, thigh, CYPIONATE) 200 or buttocks 2 mg/mL injection (two) times a week. (Saturday & Saturday) traMADol (ULTRAM) Take 50 mg by 0 02/06/20 Discontinued 50 mg tablet mouth 3 (three) 18 times a day as needed for moderate pain. pantoprazole Take 40 mg by 0 02/06/20 Discontinued (PROTONIX) 40 MG mouth 2 (two) 18 EC tablet times a day. sildenafil Take 100 mg by 0 02/06/20 Discontinued (VIAGRA) 100 MG mouth daily as 18 tablet needed for erectile dysfunction (1 hour before intercourse). gabapentin Take 1 capsule 90 capsule 0 02/05/2018 03/10/19 Discontinued (NEURONTIN) 100 mg (100 mg total) by 19 capsule mouth 3 (three) times a day for 30 days. ezetimibe-simvasta Take 1 tablet by 30 tablet 0 02/05/2018 03/10/19 Discontinued tin (VYTORIN) mouth nightly for 19 10-40 mg per 30 days. tablet tamsulosin Take 1 capsule 30 capsule 0 02/06/2018 03/10/19 Discontinued (FLOMAX) 0.4 mg (0.4 mg total) by 19 capsule mouth daily for 30 days. metoprolol Take 1 tablet (25 30 tablet 0 02/06/2018 03/10/19 Discontinued succinate XL mg total) by 19 (TOPROL-XL) 25 mg mouth daily for 24 hr tablet 30 days. NIFEdipine XL Take 1 tablet (30 30 tablet 0 02/06/2018 03/10/19 Discontinued (PROCARDIA XL) 30 mg total) by 19 MG 24 hr tablet mouth daily for 30 days. heparin Inject 1 mL 60 mL 0 02/05/2018 03/10/19 Discontinued sodium,porcine (5,000 Units 19 (HEPARIN, total) under the PORCINE,) 5,000 skin every 12 unit/mL injection (twelve) hours for 30 days. insulin GLARGINE Inject 50 Units 15 mL 0 02/06/2018 03/10/19 Discontinued (LANTUS) 100 under the skin 19 unit/mL injection daily before (vial) breakfast for 30 days. insulin lispro Inject 0-12 Units 10 mL 12 02/05/2018 03/10/19 Discontinued (HumaLOG) 100 under the skin 3 19 unit/mL injection (three) times a day with meals for 30 days. furosemide (LASIX) Take 1 tablet (20 30 tablet 0 02/06/2018 03/10/19 Discontinued 20 mg tablet mg total) by 19 mouth daily for 30 days. magnesium oxide Take 1 tablet 60 tablet 0 02/05/2018 03/10/19 Discontinued (MAG-OX) 400 mg (400 mg total) by 19 (241.3 mg mouth 2 (two) magnesium) tablet times a day for 30 days. aspirin (ECOTRIN) Take 1 tablet (81 30 tablet 0 02/05/2018 03/10/19 Discontinued 81 MG enteric mg total) by 19 coated tablet mouth daily for 30 days. pantoprazole Take 1 tablet (40 30 tablet 0 02/06/2018 03/10/19 Discontinued (PROTONIX) 40 MG mg total) by 19 EC tablet mouth daily for 30 days. insulin GLARGINE Inject 16 Units 10 mL 1 03/08/2018 03/10/19 Discontinued (LANTUS) 100 under the skin 19 unit/mL injection daily. (vial) insulin lispro Inject 4-9 Units 10 mL 1 03/07/2018 03/10/19 Discontinued (HumaLOG) 100 under the skin 3 19 unit/mL injection (three) times a day with meals. gabapentin Take 1 capsule 90 capsule 11 03/10/2018 03/24/19 Discontinued (NEURONTIN) 100 mg (100 mg total) by 19 capsule mouth 3 (three) times a day. cefepime IVPB 2 Infuse 2 g into a 0 03/10/2018 03/27/19 gram Mini-Bag Plus venous catheter 19 every 12 (twelve) hours for 17 days. tiZANidine Take 1 tablet (2 0 03/10/2018 03/24/19 Discontinued (ZANAFLEX) 2 MG mg total) by 19 tablet mouth every 8 (eight) hours as needed for muscle spasms for up to 30 days. insulin lispro Inject 3 Units 10 mL 0 03/11/2018 03/10/19 Discontinued (HumaLOG) 100 under the skin 19 unit/mL injection daily with breakfast. HYDROcodone-acetam Take 2 tablets by 0 03/10/2018 03/24/19 Discontinued inophen (NORCO) mouth 4 (four) 19 10-325 mg per times a day for tablet 15 days. Max Daily Amount: 8 tablets morPHINE (MSIR) 15 Take 1 tablet (15 0 03/10/2018 03/24/19 Discontinued MG tablet mg total) by 19 mouth every 4 (four) hours as needed for severe pain for up to 15 days. Max Daily Amount: 90 mg hydromorPHONE Take 1 tablet (4 1 tablet 0 03/24/2018 03/24/19 (DILAUDID) 4 MG mg total) by 19 tablet mouth once for 1 dose. Max Daily Amount: 4 mg Active Problems Problem Noted Date Uncontrolled type 2 diabetes mellitus with peripheral neuropathy 03/06/2018 Essential hypertension 02/28/2018 Epidural abscess 02/14/2018 Leg weakness, bilateral 01/20/2018 Iron deficiency anemia secondary to inadequate dietary iron intake 09/25/2016 Hospital discharge follow-up 09/11/2016 Altered mental status, unspecified 09/04/2016 Acute alcoholic hepatitis 09/04/2016 Hyperkalemia 09/04/2016 Lactic acidosis 09/04/2016 Alcohol abuse 09/04/2016 Acute renal failure 09/04/2016 Nausea and vomiting 09/04/2016 Normocytic anemia 09/04/2016 Encounters Date Type Specialty Care Team Description 04/04/2018 Patient Outreach Quality Leonardo Mix, CINDY 04/01/2018 Patient Outreach Quality Kacy PimentelCINDY 03/27/2018 Office Visit Infectious Diseases Vincent Negrete MD Wound infection after surgery (Primary Dx); Acute right-sided low back pain with sciatica, sciatica laterality unspecified 03/24/2018 Office Visit Neurosurgery Thomas Covarrubias MD Discitis of lumbar region (Primary Dx); Wound infection after surgery 03/13/2018 Patient Outreach Quality Marcy Shepard RN 02/17/2018 Orders Only Infectious Diseases ProviderVasquez MD 02/15/2018 Anesthesia Event General Surgery Mildred Jaimes, SIDEROGRAPHIST 02/15/2018 Surgery General Surgery Thomas Covarrubias MD LUMBAR WOUND WASOUT 02/14/2018 - Hospital Encounter General Internal Thomas Covarrubias MD Epidural abscess 03/10/2018 Medicine 02/13/2018 Intake Access N/A 02/07/2018 Intake Access N/A 01/31/2018 Anesthesia Event General Surgery Luisa Diamond, SIDEROGRAPHIST 01/31/2018 Surgery General Surgery Thomas Covarrubias MD L3-L4 LAMINECTOMY AND DISCECTOMY 01/30/2018 Anesthesia Event Radiology Catina Gage MD 01/28/2018 Surgery Procedural Buck Herr Left heart cath w Donna Mccray MD lv gram cors [[id number] (CPT)] 01/23/2018 Orders Only Procedural [facility] Aby Og 01/20/2018 - Hospital Encounter General Internal Catina Oreilly Leg weakness, bilateral (Primary Dx); 02/05/2018 Medicine MD Kaylee Hyperkalemia; Kun Olmos MD Hyperglycemia; Back pain, lumbosacral; Secondary hypertension 01/11/2018 Intake Access N/A after 04/07/2017 Family History Medical History Relation Name Comments [...] Vital Sign Reading Time Taken Blood Pressure 102/70 03/27/2018 9:01 AM [employer] Pulse 71 03/27/2018 9:01 AM [employer] Temperature 36.7 C (98.1 F) 03/27/2018 9:01 AM [employer] Respiratory Rate 16 03/10/2018 12:08 PM [employer]MENT [employer] Oxygen Saturation 95% 03/27/2018 9:01 AM [employer] Inhaled Oxygen Concentration - - Weight 68 kg (150 lb) 03/27/2018 9:01 AM [employer] Height 175.3 cm (5' 9") 03/27/2018 9:01 AM [employer] Body Mass Index 22.15 03/27/2018 9:01 AM [employer]MENT [employer] Plan of Treatment Health Maintenance Due Date Last Done Comments DIABETIC RETINAL EYE EXAM 1945 DIABETIC FOOT EXAM 1953 COLON CANCER SCREENING 1993 SHINGLES VACCINES (1 of 2) 1993 PNEUMOCOCCAL POLYSACCHARIDE VACCINE AGE 65 AND OVER 2008 PNEUMOCOCCAL-13 2008 INFLUENZA VACCINE 10/02/2017 Implants Explanted Type Area Post Splitter Device Identifier Shelf Expiration Model / Serial Date / Lot [facility] / / [id number] Procedures Procedure Name Priority Date/Time Associated Comments Diagnosis POC GLUCOSE Routine 03/10/2018 12:09 Results for this PM [employer] procedure are in the results section. POC GLUCOSE Routine 03/10/2018 8:49 Results for this AM [employer] procedure are in the results section. POC GLUCOSE Routine 03/09/2018 6:24 Results for this PM [employer] procedure are in the results section. POC GLUCOSE Routine 03/09/2018 3:40 Results for this PM [employer] procedure are in the results section. POC GLUCOSE Routine 03/09/2018 11:17 Results for this AM [employer] procedure are in the results section. POC GLUCOSE Routine 03/09/2018 8:25 Results for this AM [employer] procedure are in the results section. POC GLUCOSE Routine 03/08/2018 5:33 Results for this PM [employer] procedure are in the results section. POC GLUCOSE Routine 03/08/2018 11:58 Results for this AM [employer] procedure are in the results section. POC GLUCOSE Routine 03/08/2018 8:14 Results for this AM [employer] procedure are in the results section. POC GLUCOSE Routine 03/08/2018 3:36 Results for this AM [employer] procedure are in the results section. POC GLUCOSE Routine 03/07/2018 4:30 Results for this PM [employer] procedure are in the results section. POC GLUCOSE Routine 03/07/2018 12:00 Results for this PM [employer] procedure are in the results section. POC GLUCOSE Routine 03/07/2018 8:44 Results for this AM [employer] procedure are in the results section. POC GLUCOSE Routine 03/07/2018 7:23 Results for this AM [employer] procedure are in the results section. POC GLUCOSE Routine 03/06/2018 9:18 Results for this PM [employer] procedure are in the results section. POC GLUCOSE Routine 03/06/2018 4:21 Results for this PM [employer] procedure are in the results section. POC GLUCOSE Routine 03/06/2018 12:30 Results for this PM [employer] procedure are in the results section. POC GLUCOSE Routine 03/06/2018 9:37 Results for this AM [employer] procedure are in the results section. ESTIMATED GFR Routine 03/06/2018 12:05 Results for this AM [employer] procedure are in the results section. BASIC METABOLIC PANEL Routine 03/06/2018 12:05 Results for this AM [employer] procedure are in the results section. HC COMPLETE BLD COUNT Routine 03/06/2018 12:05 Results for this W/AUTO DIFF AM [employer] procedure are in the results section. POC GLUCOSE Routine 2018 9:05 Results for this PM [employer] procedure are in the results section. POC GLUCOSE Routine 2018 6:44 Results for this PM [employer] procedure are in the results section. POC GLUCOSE Routine 2018 3:41 Results for this PM [employer] procedure are in the results section. POC GLUCOSE Routine 2018 12:16 Results for this PM [employer] procedure are in the results section. POC GLUCOSE Routine 2018 11:29 Results for this AM [employer] procedure are in the results section. POC GLUCOSE Routine 2018 7:52 Results for this AM [employer] procedure are in the results section. POC GLUCOSE Routine 2018 5:30 Results for this AM [employer] procedure are in the results section. POC GLUCOSE Routine 2018 4:20 Results for this AM [employer] procedure are in the results section. ESTIMATED GFR Routine 2018 12:55 Results for this AM [employer] procedure are in the results section. CBC HEMOGRAM Routine 2018 12:55 Results for this AM [employer] procedure are in the results section. BASIC METABOLIC PANEL Routine 2018 12:55 Results for this AM [employer] procedure are in the results section. POC GLUCOSE Routine 03/04/2018 11:28 Results for this PM [employer] procedure are in the results section. POC GLUCOSE Routine 03/04/2018 7:42 Results for this PM [employer] procedure are in the results section. POC GLUCOSE Routine 03/04/2018 4:54 Results for this PM [employer] procedure are in the results section. POC GLUCOSE Routine 03/04/2018 3:41 Results for this PM [employer] procedure are in the results section. POC GLUCOSE Routine 03/04/2018 12:03 Results for this PM [employer] procedure are in the results section. POC GLUCOSE Routine 03/04/2018 8:04 Results for this AM [employer] procedure are in the results section. POC GLUCOSE Routine 03/04/2018 3:45 Results for this AM [employer] procedure are in the results section. ESTIMATED GFR Routine 03/04/2018 3:13 Results for this AM [employer] procedure are in the results section. IONIZED CALCIUM Routine 03/04/2018 3:13 Results for this AM [employer] procedure are in the results section. PHOSPHORUS LEVEL Routine 03/04/2018 3:13 Results for this AM [employer] procedure are in the results section. MAGNESIUM LEVEL Routine 03/04/2018 3:13 Results for this AM [employer] procedure are in the results section. BASIC METABOLIC PANEL Routine 03/04/2018 3:13 Results for this AM [employer] procedure are in the results section. CBC HEMOGRAM Routine 03/04/2018 2:50 Results for this AM [employer] procedure are in the results section. POC GLUCOSE Routine 03/03/2018 11:54 Results for this PM [employer] procedure are in the results section. POC GLUCOSE Routine 03/03/2018 8:08 Results for this PM [employer] procedure are in the results section. POC GLUCOSE Routine 03/03/2018 3:43 Results for this PM [employer] procedure are in the results section. POC GLUCOSE Routine 03/03/2018 11:39 Results for this AM [employer] procedure are in the results section. POC GLUCOSE Routine 03/03/2018 7:13 Results for this AM [employer] procedure are in the results section. POC GLUCOSE Routine 03/03/2018 4:07 Results for this AM [employer] procedure are in the results section. ESTIMATED GFR Routine 03/03/2018 2:23 Results for this AM [employer] procedure are in the results section. PHOSPHORUS LEVEL Routine 03/03/2018 2:23 Results for this AM [employer] procedure are in the results section. MAGNESIUM LEVEL Routine 03/03/2018 2:23 Results for this AM [employer] procedure are in the results section. IONIZED CALCIUM Routine 03/03/2018 2:23 Results for this AM [employer] procedure are in the results section. BASIC METABOLIC PANEL Routine 03/03/2018 2:23 Results for this AM [employer] procedure are in the results section. HC COMPLETE BLD COUNT Routine 03/03/2018 2:10 Results for this W/AUTO DIFF AM [employer] procedure are in the results section. POC GLUCOSE Routine 03/02/2018 11:58 Results for this PM [employer] procedure are in the results section. POC GLUCOSE Routine 03/02/2018 7:46 Results for this PM [employer] procedure are in the results section. POC GLUCOSE Routine 03/02/2018 2:59 Results for this PM [employer] procedure are in the results section. POC GLUCOSE Routine 03/02/2018 11:08 Results for this AM [employer] procedure are in the results section. POC GLUCOSE Routine 03/02/2018 7:54 Results for this AM [employer] procedure are in the results section. POC GLUCOSE Routine 03/02/2018 4:11 Results for this AM [employer] procedure are in the results section. ESTIMATED GFR Routine 03/02/2018 2:35 Results for this AM [employer] procedure are in the results section. PHOSPHORUS LEVEL Routine 03/02/2018 2:35 Results for this AM [employer] procedure are in the results section. MAGNESIUM LEVEL Routine 03/02/2018 2:35 Results for this AM [employer] procedure are in the results section. BASIC METABOLIC PANEL Routine 03/02/2018 2:35 Results for this AM [employer] procedure are in the results section. SMEAR REVIEW Routine 03/02/2018 2:20 Results for this AM [employer] procedure are in the results section. HC COMPLETE BLD COUNT Routine 03/02/2018 2:20 Results for this W/AUTO DIFF AM [employer] procedure are in the results section. POC GLUCOSE Routine 03/02/2018 12:06 Results for this AM [employer] procedure are in the results section. POC GLUCOSE Routine 03/01/2018 8:06 Results for this PM [employer] procedure are in the results section. POC GLUCOSE Routine 03/01/2018 4:35 Results for this PM [employer] procedure are in the results section. POC GLUCOSE Routine 03/01/2018 4:07 Results for this PM [employer] procedure are in the results section. POC GLUCOSE Routine 03/01/2018 11:28 Results for this AM [employer] procedure are in the results section. POC GLUCOSE Routine 03/01/2018 7:18 Results for this AM [employer] procedure are in the results section. ESTIMATED GFR Routine 03/01/2018 2:11 Results for this AM [employer] procedure are in the results section. COMPREHENSIVE Routine 03/01/2018 2:11 Results for this METABOLIC PANEL AM [employer] procedure are in the results section. PHOSPHORUS LEVEL Routine 03/01/2018 2:11 Results for this AM [employer] procedure are in the results section. MAGNESIUM LEVEL Routine 03/01/2018 2:11 Results for this AM [employer] procedure are in the results section. HC COMPLETE BLD COUNT Routine 03/01/2018 2:00 Results for this W/AUTO DIFF AM [employer] procedure are in the results section. POC GLUCOSE Routine 03/01/2018 12:12 Results for this AM [employer] procedure are in the results section. PHOSPHORUS LEVEL Routine 02/28/2018 8:30 Results for this PM [employer] procedure are in the results section. POTASSIUM LEVEL Routine 02/28/2018 8:30 Results for this PM [employer] procedure are in the results section. POC GLUCOSE Routine 02/28/2018 7:53 Results for this PM [employer] procedure are in the results section. SMEAR REVIEW Routine 02/28/2018 5:30 Results for this PM [facility] procedure are in the results section. ESTIMATED GFR Routine 02/28/2018 5:30 Results for this PM [facility] procedure are in the results section. PHOSPHORUS LEVEL Routine 02/28/2018 5:30 Results for this PM [facility] procedure are in the results section. MAGNESIUM LEVEL Routine 02/28/2018 5:30 Results for this PM [facility] procedure are in the results section. HC COMPLETE BLD COUNT Routine 02/28/2018 5:30 Results for this W/AUTO DIFF PM [facility] procedure are in the results section. BASIC METABOLIC PANEL Routine 02/28/2018 5:30 Results for this PM [facility] procedure are in the results section. POC GLUCOSE Routine 02/28/2018 3:02 Results for this PM [facility] procedure are in the results section. IR LUMBAR PUNCTURE Routine 02/28/2018 2:18 Results for this PM [facility] procedure are in the results section. CONSULT TO OSTOMY CARE Routine 02/28/2018 2:06 NURSE PM [facility] POC GLUCOSE Routine 02/28/2018 11:52 Results for this AM [facility] procedure are in the results section. POC GLUCOSE Routine 02/28/2018 7:55 Results for this AM [facility] procedure are in the results section. POC GLUCOSE Routine 02/28/2018 5:59 Results for this AM [facility] procedure are in the results section. POC GLUCOSE Routine 02/27/2018 3:55 Results for this [facility] procedure are in the results section. POC GLUCOSE Routine 02/27/2018 12:12 Results for this PM [facility] procedure are in the results section. POC GLUCOSE Routine 02/27/2018 7:45 Results for this AM [facility] procedure are in the results section. POC GLUCOSE Routine 02/27/2018 5:36 Results for this AM [facility] procedure are in the results section. POC GLUCOSE Routine 02/26/2018 9:20 Results for this PM [facility] procedure are in the results section. POC GLUCOSE Routine 02/26/2018 4:55 Results for this PM [facility] procedure are in the results section. POC GLUCOSE Routine 02/26/2018 11:41 Results for this AM [facility] procedure are in the results section. POC GLUCOSE Routine 02/26/2018 7:37 Results for this AM [facility] procedure are in the results section. POC GLUCOSE Routine 02/26/2018 5:35 Results for this AM [facility] procedure are in the results section. POC GLUCOSE Routine 02/25/2018 8:59 Results for this [facility] procedure are in the results section. POC GLUCOSE Routine 02/25/2018 5:04 Results for this PM [facility] procedure are in the results section. POC GLUCOSE Routine 02/25/2018 11:48 Results for this AM [facility] procedure are in the results section. POC GLUCOSE Routine 02/25/2018 10:10 Results for this AM [facility] procedure are in the results section. POC GLUCOSE Routine 02/25/2018 8:39 Results for this AM [facility] procedure are in the results section. POC GLUCOSE Routine 02/25/2018 5:35 Results for this AM [facility] procedure are in the results section. POC GLUCOSE Routine 02/24/2018 7:59 Results for this [facility] procedure are in the results section. POC GLUCOSE Routine 02/24/2018 5:07 Results for this [facility] procedure are in the results section. C-REACTIVE PROTEIN STAT 02/24/2018 4:40 Results for this [facility] procedure are in the results section. SEDIMENTATION RATE STAT 02/24/2018 4:40 Results for this [facility] procedure are in the results section. C-REACTIVE PROTEIN STAT 02/24/2018 4:40 Results for this PM [facility] procedure are in the results section. SEDIMENTATION RATE STAT 02/24/2018 4:40 Results for this PM [facility] procedure are in the results section. POC GLUCOSE Routine 02/24/2018 3:38 Results for this PM [facility] procedure are in the results section. POC GLUCOSE Routine 02/24/2018 3:10 Results for this PM [facility] procedure are in the results section. MRI LUMBAR SPINE W WO STAT 02/24/2018 2:29 Results for this CONTRAST PM [facility] procedure are in the results section. POC GLUCOSE Routine 02/24/2018 1:01 Results for this [facility] procedure are in the results section. POC GLUCOSE Routine 02/24/2018 11:20 Results for this AM [facility] procedure are in the results section. POC GLUCOSE Routine 02/24/2018 7:44 Results for this AM [facility] procedure are in the results section. POC GLUCOSE Routine 02/24/2018 5:29 Results for this AM [facility] procedure are in the results section. ESTIMATED GFR Routine 02/24/2018 3:27 Results for this AM [facility] procedure are in the results section. MAGNESIUM LEVEL Routine 02/24/2018 3:27 Results for this AM [facility] procedure are in the results section. BASIC METABOLIC PANEL Routine 02/24/2018 3:27 Results for this AM [facility] procedure are in the results section. PHOSPHORUS LEVEL Routine 02/24/2018 3:27 Results for this AM [facility] procedure are in the results section. HC COMPLETE BLD COUNT Routine 02/24/2018 3:23 Results for this W/AUTO DIFF AM [facility] procedure are in the results section. POC GLUCOSE Routine 02/24/2018 3:14 Results for this AM [facility] procedure are in the results section. POC GLUCOSE Routine 02/24/2018 2:14 Results for this AM [facility] procedure are in the results section. POC GLUCOSE Routine 02/24/2018 12:36 Results for this AM [facility] procedure are in the results section. POC GLUCOSE Routine 02/23/2018 11:37 Results for this PM [facility] procedure are in the results section. POC GLUCOSE Routine 02/23/2018 10:02 Results for this PM [facility] procedure are in the results section. POC GLUCOSE Routine 02/23/2018 9:15 Results for this PM [facility] procedure are in the results section. POC GLUCOSE Routine 02/23/2018 7:44 Results for this PM [facility] procedure are in the results section. POC GLUCOSE Routine 02/23/2018 7:35 Results for this PM [facility] procedure are in the results section. POC GLUCOSE Routine 02/23/2018 5:27 Results for this PM [facility] procedure are in the results section. POC GLUCOSE Routine 02/23/2018 5:04 Results for this PM [facility] procedure are in the results section. POC GLUCOSE Routine 02/23/2018 12:48 Results for this PM [facility] procedure are in the results section. POC GLUCOSE Routine 02/23/2018 12:05 Results for this [facility] procedure are in the results section. POC GLUCOSE Routine 02/23/2018 11:29 Results for this AM [facility] procedure are in the results section. POC GLUCOSE Routine 02/23/2018 7:44 Results for this AM [facility] procedure are in the results section. ESTIMATED GFR Routine 02/23/2018 4:33 Results for this AM [facility] procedure are in the results section. MAGNESIUM LEVEL Routine 02/23/2018 4:33 Results for this AM [facility] procedure are in the results section. HC COMPLETE BLD COUNT Routine 02/23/2018 4:33 Results for this W/AUTO DIFF AM [facility] procedure are in the results section. BASIC METABOLIC PANEL Routine 02/23/2018 4:33 Results for this AM [facility] procedure are in the results section. PHOSPHORUS LEVEL Routine 02/23/2018 4:33 Results for this AM [facility] procedure are in the results section. POC GLUCOSE Routine 02/23/2018 4:29 Results for this AM [facility] procedure are in the results section. POC GLUCOSE Routine 02/23/2018 4:06 Results for this AM [facility] procedure are in the results section. POC GLUCOSE Routine 02/22/2018 8:37 Results for this PM [facility] procedure are in the results section. POC GLUCOSE Routine 02/22/2018 3:52 Results for this [facility] procedure are in the results section. POC GLUCOSE Routine 02/22/2018 12:00 Results for this [facility] procedure are in the results section. BETA TRANSFERRIN LEVEL Routine 02/22/2018 7:52 Results for this AM [facility] procedure are in the results section. POC GLUCOSE Routine 02/22/2018 7:26 Results for this AM [facility] procedure are in the results section. ESTIMATED GFR Routine 02/22/2018 4:19 Results for this AM [facility] procedure are in the results section. MAGNESIUM LEVEL Routine 02/22/2018 4:19 Results for this AM [facility] procedure are in the results section. HC COMPLETE BLD COUNT Routine 02/22/2018 4:19 Results for this W/AUTO DIFF AM [facility] procedure are in the results section. BASIC METABOLIC PANEL Routine 02/22/2018 4:19 Results for this AM [facility] procedure are in the results section. PHOSPHORUS LEVEL Routine 02/22/2018 4:19 Results for this AM [facility] procedure are in the results section. POC GLUCOSE Routine 02/21/2018 9:10 Results for this [facility] procedure are in the results section. BETA TRANSFERRIN LEVEL Routine 02/21/2018 6:48 Results for this [facility] procedure are in the results section. POC GLUCOSE Routine 02/21/2018 5:24 Results for this [facility] procedure are in the results section. POC GLUCOSE Routine 02/21/2018 12:28 Results for this [facility] procedure are in the results section. POC GLUCOSE Routine 02/21/2018 8:37 Results for this AM [facility] procedure are in the results section. BETA TRANSFERRIN LEVEL Routine 02/21/2018 5:40 Results for this AM [facility] procedure are in the results section. CBC WITH PLATELET AND Routine 02/21/2018 4:35 Results for this DIFFERENTIAL AM [facility] procedure are in the results section. ESTIMATED GFR Routine 02/21/2018 4:00 Results for this AM [facility] procedure are in the results section. MAGNESIUM LEVEL Routine 02/21/2018 4:00 Results for this AM [facility] procedure are in the results section. BASIC METABOLIC PANEL Routine 02/21/2018 4:00 Results for this AM [facility] procedure are in the results section. POC GLUCOSE Routine 02/20/2018 8:40 Results for this PM [facility] procedure are in the results section. POC GLUCOSE Routine 02/20/2018 3:58 Results for this PM [facility] procedure are in the results section. POC GLUCOSE Routine 02/20/2018 2:53 Results for this [facility] procedure are in the results section. POC GLUCOSE Routine 02/20/2018 12:09 Results for this [facility] procedure are in the results section. POC GLUCOSE Routine 02/20/2018 7:21 Results for this AM [facility] procedure are in the results section. ESTIMATED GFR Routine 02/20/2018 4:10 Results for this AM [facility] procedure are in the results section. PHOSPHORUS LEVEL Routine 02/20/2018 4:10 Results for this AM [facility] procedure are in the results section. B NATRIURETIC PEPTIDE Routine 02/20/2018 4:10 Results for this AM [facility] procedure are in the results section. MAGNESIUM LEVEL Routine 02/20/2018 4:10 Results for this AM [facility] procedure are in the results section. BASIC METABOLIC PANEL Routine 02/20/2018 4:10 Results for this AM [facility] procedure are in the results section. CBC WITH PLATELET AND Routine 02/20/2018 4:10 Results for this DIFFERENTIAL AM [facility] procedure are in the results section. POC GLUCOSE Routine 02/19/2018 11:50 Results for this PM [facility] procedure are in the results section. POC GLUCOSE Routine 02/19/2018 9:11 Results for this PM [facility] procedure are in the results section. POC GLUCOSE Routine 02/19/2018 4:32 Results for this PM [facility] procedure are in the results section. POC GLUCOSE Routine 02/19/2018 8:01 Results for this AM [facility] procedure are in the results section. ESTIMATED GFR Routine 02/19/2018 3:30 Results for this AM [facility] procedure are in the results section. HEMOGLOBIN A1C Routine 02/19/2018 3:30 Results for this AM [facility] procedure are in the results section. PHOSPHORUS LEVEL Routine 02/19/2018 3:30 Results for this AM [facility] procedure are in the results section. MAGNESIUM LEVEL Routine 02/19/2018 3:30 Results for this AM [facility] procedure are in the results section. B NATRIURETIC PEPTIDE Routine 02/19/2018 3:30 Results for this AM [facility] procedure are in the results section. BASIC METABOLIC PANEL Routine 02/19/2018 3:30 Results for this AM [facility] procedure are in the results section. HC COMPLETE BLD COUNT Routine 02/19/2018 3:30 Results for this W/AUTO DIFF AM [facility] procedure are in the results section. POC GLUCOSE Routine 02/18/2018 11:43 Results for this [facility] procedure are in the results section. POC GLUCOSE Routine 02/18/2018 8:21 Results for this [facility] procedure are in the results section. POC GLUCOSE Routine 02/18/2018 5:37 Results for this [facility] procedure are in the results section. XR PICC CHEST PORTABLE Routine 02/18/2018 2:29 Epidural abscess Results for this PM [facility] procedure are in the results section. HC CATH DUAL LUMEN Routine 02/18/2018 2:19 Results for this PICC [facility] procedure are in the results section. HC US GUIDED VASCULAR Routine 02/18/2018 2:19 Results for this ACCESS [facility] procedure are in the results section. HC CVL PICC INSERT 5 Routine 02/18/2018 2:19 Results for this YRS OR > W/O IMG GUID PM [facility] procedure are in the results section. POC GLUCOSE Routine 02/18/2018 11:42 Results for this AM [facility] procedure are in the results section. POC GLUCOSE Routine 02/18/2018 7:25 Results for this AM [facility] procedure are in the results section. POC GLUCOSE Routine 02/17/2018 9:33 Results for this [facility] procedure are in the results section. POC GLUCOSE Routine 02/17/2018 3:39 Results for this [facility] procedure are in the results section. POC GLUCOSE Routine 02/17/2018 7:33 Results for this [facility] procedure are in the results section. ESTIMATED GFR Routine 02/17/2018 4:10 Results for this AM [facility] procedure are in the results section. BASIC METABOLIC PANEL Routine 02/17/2018 4:10 Results for this [facility] procedure are in the results section. HC COMPLETE BLD COUNT Routine 02/17/2018 4:10 Results for this W/AUTO DIFF AM [facility] procedure are in the results section. POC GLUCOSE Routine 02/16/2018 9:04 Results for this [facility] procedure are in the results section. POC GLUCOSE Routine 02/16/2018 4:57 Results for this [facility] procedure are in the results section. POC GLUCOSE Routine 02/16/2018 1:23 Results for this [facility] procedure are in the results section. POC GLUCOSE Routine 02/16/2018 8:10 Results for this AM [facility] procedure are in the results section. POC GLUCOSE Routine 02/16/2018 6:03 Results for this AM [facility] procedure are in the results section. VANCOMYCIN LEVEL, Timed 02/16/2018 6:00 Results for this TROUGH [facility] procedure are in the results section. C-REACTIVE PROTEIN Routine 02/16/2018 4:00 Results for this AM [facility] procedure are in the results section. POC GLUCOSE Routine 02/15/2018 4:06 Results for this [facility] procedure are in the results section. POC GLUCOSE Routine 02/15/2018 1:23 Results for this PM [facility] procedure are in the results section. ARTERIAL LINE Routine 02/15/2018 1:11 PM [facility] Procedure Note - Toan Aleman MD - 02/15/2018 1:11 PM [facility] Arterial line Performed by: Toan Aleman MD Authorized by: Toan Aleman MD Patient Location: OR Start Time: 02/15/2018 11:35 AM End Time: 02/15/2018 11:39 AM Staff: Anesthesiologist: Toan Aleman MD Performed by: Anesthesiologist Pre-procedure: patient identified, IV checked, site and side verified, risks and benefits discussed, procedure verified, surgical consent complete, patient position confirmed, monitors and equipment checked and pre-op evaluation complete MSBT: antiseptic used, all elements of maximal sterile barrier technique followed, hand hygiene performed, cap/gown used by other personnel and solutions labeled TIme Out Performed: 02/15/2018 11:34 AM Indications: Indications: hemodynamic monitoring Indications comment: Hx of A fib and CAD Anesthesia: Anesthesia: General Procedure Details: Arterial Line placement: Placed post induction Line placement site: Radial Line placement side: Right Arterial line gauge: 20 G Number of attempts: 1 Ultrasound guidance used: No Post-procedure: Post-procedure: Sterile dressing applied Post procedure circulation, sensation, movement: Normal and unchanged Patient tolerance: Patient tolerated the procedure well with no immediate complications Notes: No issues, perfusion distally appears ok FUNGUS CULTURE Routine 02/15/2018 12:10 PM [facility] ANAEROBIC CULTURE Routine 02/15/2018 12:10 PM [facility] AFB CULTURE Routine 02/15/2018 12:10 PM [facility] AEROBIC CULTURE Routine 02/15/2018 12:10 PM [facility] GA AN ELECTIVE ENDOTRACHEAL Routine 02/15/2018 12:09 PM [facility] AIRWAY Procedure Note - Mildred Jaimes CRNA - 02/15/2018 12:09 PM [facility] ANESTHESIA INTUBATION Date/Time: 02/15/2018 11:31 AM Performed by: Mildred Jaimes CRNA Authorized by: Toan Aleman MD Location: OR Urgency: Elective Difficult Airway: No Preoxygenated with 100% O2: Yes C-spine Precautions Maintained Throughout: Yes Mask Ventilation: Easy mask Final Airway Type: Endotracheal airway Final Endotracheal Airway: ETT Cuffed: Yes Technique Used: Direct laryngoscopy Devices/Methods Used in Placement: Intubating stylet Insertion Site: Oral Blade Type: Montes Laryngoscope Blade/Videolaryngoscope Blade Size: 2 ETT Size (mm): 8.0 Cuff at minimum occlusion pressure: Yes Measured from: Lips ETT to Lips (cm): 22 Placement Verified by: CO2 detection and direct visualization Laryngoscopic view: Grade IIa - partial view of glottis Rapid Sequence Induction (RSI): No Modified RSI: No Number of Attempts at Approach: 2 AFB STAIN Routine 02/15/2018 12:09 PM Results for this [facility] procedure are in the results section. FUNGUS SMEAR Routine 02/15/2018 12:09 PM Results for this [facility] procedure are in the results section. GRAM STAIN Routine 02/15/2018 12:09 PM Results for this [facility] procedure are in the results section. ANAEROBIC CULTURE Routine 02/15/2018 12:09 PM Results for this [facility] procedure are in the results section. FUNGUS CULTURE Routine 02/15/2018 12:09 PM Results for this [facility] procedure are in the results section. AFB CULTURE Routine 02/15/2018 12:09 PM Results for this [facility] procedure are in the results section. AEROBIC CULTURE Routine 02/15/2018 12:09 PM Results for this [facility] procedure are in the results section. AFB STAIN Routine 02/15/2018 12:09 PM Results for this [facility] procedure are in the results section. FUNGUS SMEAR Routine 02/15/2018 12:09 PM Results for this [facility] procedure are in the results section. GRAM STAIN Routine 02/15/2018 12:09 PM Results for this [facility] procedure are in the results section. AFB CULTURE Routine 02/15/2018 12:09 PM Results for this [facility] procedure are in the results section. FUNGUS CULTURE Routine 02/15/2018 12:09 PM Results for this [facility] procedure are in the results section. ANAEROBIC CULTURE Routine 02/15/2018 12:09 PM Results for this [facility] procedure are in the results section. AEROBIC CULTURE Routine 02/15/2018 12:09 PM Results for this [facility] procedure are in the results section. AFB STAIN Timed 02/15/2018 12:09 PM Results for this [facility] procedure are in the results section. GRAM STAIN Timed 02/15/2018 12:09 PM Results for this [facility] procedure are in the results section. FUNGUS SMEAR Timed 02/15/2018 12:09 PM Results for this [facility] procedure are in the results section. AFB CULTURE Timed 02/15/2018 12:09 PM Results for this [facility] procedure are in the results section. AEROBIC CULTURE Timed 02/15/2018 12:09 PM Results for this [facility] procedure are in the results section. FUNGUS CULTURE Timed 02/15/2018 12:09 PM Results for this [facility] procedure are in the results section. ANAEROBIC CULTURE Timed 02/15/2018 12:09 PM Results for this [facility] procedure are in the results section. GRAM STAIN Timed 02/15/2018 12:08 PM Results for this [facility] procedure are in the results section. AFB STAIN Timed 02/15/2018 12:08 PM Results for this [facility] procedure are in the results section. FUNGUS SMEAR Timed 02/15/2018 12:08 PM Results for this [facility] procedure are in the results section. AFB CULTURE Timed 02/15/2018 12:08 PM Results for this [facility] procedure are in the results section. AEROBIC CULTURE Timed 02/15/2018 12:08 PM Results for this [facility] procedure are in the results section. FUNGUS CULTURE Timed 02/15/2018 12:08 PM Results for this [facility] procedure are in the results section. ANAEROBIC CULTURE Timed 02/15/2018 12:08 PM Results for this [facility] procedure are in the results section. LAMINECTOMY, LUMBAR 02/15/2018 11:00 AM abscess [facility] POC GLUCOSE Routine 02/15/2018 10:07 AM Results for this [facility] procedure are in the results section. PREALBUMIN LEVEL Routine 02/14/2018 9:18 PM Results for this [facility] procedure are in the results section. POC GLUCOSE Routine 02/14/2018 9:03 PM Results for this [facility] procedure are in the results section. PLATELET FUNCTION ANALYSIS STAT 02/14/2018 6:15 PM Results for this [facility] procedure are in the results section. GRAM STAIN Routine 02/14/2018 5:14 PM Results for this [facility] procedure are in the results section. ANAEROBIC CULTURE Routine 02/14/2018 5:14 PM Results for this [facility] procedure are in the results section. AEROBIC CULTURE Routine 02/14/2018 5:14 PM Results for this [facility] procedure are in the results section. BLOOD CULTURE, AEROBIC & Routine 02/14/2018 3:40 PM Results for this ANAEROBIC [facility] procedure are in the results section. SEDIMENTATION RATE Routine 02/14/2018 3:39 PM Results for this [facility] procedure are in the results section. C-REACTIVE PROTEIN Routine 02/14/2018 3:39 PM Results for this [facility] procedure are in the results section. ESTIMATED GFR Routine 02/14/2018 3:39 PM Results for this [facility] procedure are in the results section. URINALYSIS, AUTOMATED WITH Routine 02/14/2018 3:39 PM Results for this MICROSCOPY [facility] procedure are in the results section. PROTHROMBIN TIME WITH INR Routine 02/14/2018 3:39 PM Results for this [facility] procedure are in the results section. BASIC METABOLIC PANEL Routine 02/14/2018 3:39 PM Results for this [facility] procedure are in the results section. HC COMPLETE BLD COUNT Routine 02/14/2018 3:39 PM Results for this W/AUTO DIFF [facility] procedure are in the results section. ECG 12-LEAD STAT 02/14/2018 3:34 PM Results for this [facility] procedure are in the results section. TYPE AND SCREEN Routine 02/14/2018 3:32 PM Results for this [facility] procedure are in the results section. XR CHEST 1 VW PORTABLE Routine 02/14/2018 3:20 PM Results for this [facility] procedure are in the results section. BLOOD CULTURE, AEROBIC & Routine 02/14/2018 2:49 PM Results for this ANAEROBIC [facility] procedure are in the results section. MRI SPINE EXTERNAL STUDY Routine 02/13/2018 3:08 PM Results for this [facility] procedure are in the results section. ANAEROBIC AND AEROBIC Routine 02/08/2018 CULTURE ECG 12-LEAD Routine 02/05/2018 12:57 PM Results for this [facility] procedure are in the results section. POC GLUCOSE Routine 02/05/2018 10:56 AM Results for this [facility] procedure are in the results section. POC GLUCOSE Routine 02/05/2018 7:53 AM Results for this [facility] procedure are in the results section. POC GLUCOSE Routine 02/05/2018 5:07 AM Results for this INVESTMENT BROKER procedure are in the results section. ZINC LEVEL, SERUM Routine 02/05/2018 3:10 AM Results for this INVESTMENT BROKER procedure are in the results section. VITAMIN D 25 HYDROXY LEVEL Routine 02/05/2018 3:10 AM Results for this INVESTMENT BROKER procedure are in the results section. VITAMIN C LEVEL, PLASMA Routine 02/05/2018 3:10 AM Results for this INVESTMENT BROKER procedure are in the results section. POC GLUCOSE Routine 02/05/2018 1:17 AM Results for this INVESTMENT BROKER procedure are in the results section. POC GLUCOSE Routine 02/04/2018 9:20 PM Results for this INVESTMENT BROKER procedure are in the results section. POC GLUCOSE Routine 02/04/2018 6:00 PM Results for this INVESTMENT BROKER procedure are in the results section. POC GLUCOSE Routine 02/04/2018 12:16 PM Results for this INVESTMENT BROKER procedure are in the results section. POC GLUCOSE Routine 02/04/2018 8:34 AM Results for this INVESTMENT BROKER procedure are in the results section. POC GLUCOSE Routine 02/03/2018 9:47 PM Results for this INVESTMENT BROKER procedure are in the results section. POC GLUCOSE Routine 02/03/2018 4:41 PM Results for this INVESTMENT BROKER procedure are in the results section. POC GLUCOSE Routine 02/03/2018 12:13 PM Results for this INVESTMENT BROKER procedure are in the results section. POC GLUCOSE Routine 02/03/2018 8:12 AM Results for this INVESTMENT BROKER procedure are in the results section. ECG 12-LEAD STAT 02/02/2018 9:13 PM Results for this INVESTMENT BROKER procedure are in the results section. POC GLUCOSE Routine 02/02/2018 8:39 PM Results for this INVESTMENT BROKER procedure are in the results section. TROPONIN STAT 02/02/2018 7:22 PM Results for this INVESTMENT BROKER procedure are in the results section. ESTIMATED GFR STAT 02/02/2018 7:22 PM Results for this INVESTMENT BROKER procedure are in the results section. PHOSPHORUS LEVEL STAT 02/02/2018 7:22 PM Results for this INVESTMENT BROKER procedure are in the results section. LACTIC ACID LEVEL STAT 02/02/2018 7:22 PM Results for this INVESTMENT BROKER procedure are in the results section. MAGNESIUM LEVEL STAT 02/02/2018 7:22 PM Results for this INVESTMENT BROKER procedure are in the results section. COMPREHENSIVE METABOLIC STAT 02/02/2018 7:22 PM Results for this PANEL INVESTMENT BROKER procedure are in the results section. POC GLUCOSE Routine 02/02/2018 4:47 PM Results for this INVESTMENT BROKER procedure are in the results section. POC GLUCOSE Routine 02/02/2018 12:13 PM Results for this INVESTMENT BROKER procedure are in the results section. POC GLUCOSE Routine 02/02/2018 12:04 PM Results for this INVESTMENT BROKER procedure are in the results section. POC GLUCOSE Routine 02/02/2018 7:44 AM Results for this INVESTMENT BROKER procedure are in the results section. POC GLUCOSE Routine 02/02/2018 4:02 AM Results for this INVESTMENT BROKER procedure are in the results section. POC GLUCOSE Routine 02/01/2018 9:00 PM Results for this INVESTMENT BROKER procedure are in the results section. POC GLUCOSE Routine 02/01/2018 5:24 PM Results for this INVESTMENT BROKER procedure are in the results section. POC GLUCOSE Routine 02/01/2018 12:00 PM Results for this INVESTMENT BROKER procedure are in the results section. POC GLUCOSE Routine 02/01/2018 9:22 AM Results for this INVESTMENT BROKER procedure are in the results section. POC GLUCOSE Routine 01/31/2018 7:46 PM Results for this INVESTMENT BROKER procedure are in the results section. XR LUMBAR SPINE 1 VW Routine 01/31/2018 6:22 PM Results for this INVESTMENT BROKER procedure are in the results section. SURGICAL PATHOLOGY REQUEST Routine 01/31/2018 6:03 PM Results for this INVESTMENT BROKER procedure are in the results section. XR LUMBAR SPINE 1 VW Routine 01/31/2018 5:41 PM Results for this INVESTMENT BROKER procedure are in the results section. XR LUMBAR SPINE 1 VW Routine 01/31/2018 4:50 PM Results for this INVESTMENT BROKER procedure are in the results section. ARTERIAL LINE Routine 01/31/2018 4:32 PM INVESTMENT BROKER Procedure Note - Luisa Diamond CRNA - 01/31/2018 4:32 PM INVESTMENT BROKER Arterial line Performed by: Luisa Diamond CRNA [...] the procedure well with no immediate complications GA AN ELECTIVE ENDOTRACHEAL AIRWAY Routine 01/31/2018 4:30 PM INVESTMENT BROKER Procedure Note - Luisa Diamond CRNA - 01/31/2018 4:30 PM INVESTMENT BROKER ANESTHESIA INTUBATION Date/Time: 01/31/2018 4:30 PM Performed by: Luisa Diamond CRNA Authorized by: Xavier Contreras II, MD Location: OR Urgency: Elective Difficult Airway: No Performed by: resident/SIDEROGRAPHIST/AA Preoxygenated with 100% O2: Yes C-spine Precautions [...] Approach: 1 POC GLUCOSE Routine 01/31/2018 3:10 PM INVESTMENT BROKER LAMINECTOMY, LUMBAR 01/31/2018 3:05 PM INVESTMENT BROKER lucas POC GLUCOSE Routine 01/31/2018 2:09 PM INVESTMENT BROKER POC GLUCOSE Routine 01/31/2018 8:14 AM INVESTMENT BROKER POC GLUCOSE Routine 01/31/2018 5:05 AM INVESTMENT BROKER ESTIMATED GFR Routine 01/31/2018 4:00 AM INVESTMENT BROKER HC COMPLETE BLD COUNT W/AUTO Routine 01/31/2018 4:00 AM INVESTMENT BROKER Results for this DIFF procedure are in the results section. BASIC METABOLIC PANEL Routine 01/31/2018 4:00 AM INVESTMENT BROKER TYPE AND SCREEN Routine 01/31/2018 12:29 AM INVESTMENT BROKER XR CHEST 1 VW PORTABLE STAT 01/30/2018 10:33 PM INVESTMENT BROKER POC GLUCOSE Routine 01/30/2018 9:56 PM INVESTMENT BROKER POC GLUCOSE Routine 01/30/2018 6:52 PM INVESTMENT BROKER PROTHROMBIN TIME WITH INR Routine 01/30/2018 1:30 PM INVESTMENT BROKER POC GLUCOSE Routine 01/30/2018 10:47 AM INVESTMENT BROKER POC GLUCOSE Routine 01/30/2018 8:58 AM INVESTMENT BROKER MRI LUMBAR SPINE W WO Routine 01/30/2018 8:31 AM INVESTMENT BROKER Results for this CONTRAST procedure are in the results section. POC GLUCOSE Routine 01/30/2018 7:36 AM INVESTMENT BROKER ESTIMATED GFR Routine 01/30/2018 5:00 AM INVESTMENT BROKER HC COMPLETE BLD COUNT W/AUTO Routine 01/30/2018 5:00 AM INVESTMENT BROKER Results for this DIFF procedure are in the results section. BASIC METABOLIC PANEL Routine 01/30/2018 5:00 AM INVESTMENT BROKER POC GLUCOSE Routine 01/29/2018 9:16 PM INVESTMENT BROKER POC GLUCOSE Routine 01/29/2018 5:15 PM INVESTMENT BROKER POC GLUCOSE Routine 01/29/2018 12:46 PM INVESTMENT BROKER POC GLUCOSE Routine 01/29/2018 8:11 AM INVESTMENT BROKER ESTIMATED GFR Routine 01/29/2018 4:55 AM INVESTMENT BROKER PHOSPHORUS LEVEL Routine 01/29/2018 4:55 AM INVESTMENT BROKER MAGNESIUM LEVEL Routine 01/29/2018 4:55 AM INVESTMENT BROKER BASIC METABOLIC PANEL Routine 01/29/2018 4:55 AM INVESTMENT BROKER HC COMPLETE BLD COUNT W/AUTO Routine 01/29/2018 4:55 AM INVESTMENT BROKER Results for this DIFF procedure are in the results section. POC GLUCOSE Routine 01/28/2018 9:15 PM INVESTMENT BROKER POC GLUCOSE Routine 01/28/2018 5:45 PM INVESTMENT BROKER POC GLUCOSE Routine 01/28/2018 12:35 PM INVESTMENT BROKER POC GLUCOSE Routine 01/28/2018 9:30 AM INVESTMENT BROKER POC GLUCOSE Routine 01/28/2018 8:11 AM INVESTMENT BROKER CV BYPASS GRAFT LEFT HEART Routine 01/28/2018 7:46 AM INVESTMENT BROKER CV SELECTIVE CORONARY Routine 01/28/2018 7:46 AM INVESTMENT BROKER Results for this ANGIOGRAPHY procedure are in the results section. CV LEFT HEART CATH LV GRAM Routine 01/28/2018 7:46 AM INVESTMENT BROKER Results for this WITH CORS procedure are in the results section. POC GLUCOSE Routine 01/28/2018 4:49 AM INVESTMENT BROKER HC COMPLETE BLD COUNT W/AUTO Routine 01/28/2018 4:45 AM INVESTMENT BROKER Results for this DIFF procedure are in the results section. ESTIMATED GFR Routine 01/28/2018 4:00 AM INVESTMENT BROKER BASIC METABOLIC PANEL Routine 01/28/2018 4:00 AM INVESTMENT BROKER POC GLUCOSE Routine 01/27/2018 8:57 PM INVESTMENT BROKER POC GLUCOSE Routine 01/27/2018 5:47 PM INVESTMENT BROKER POC GLUCOSE Routine 01/27/2018 12:48 PM INVESTMENT BROKER POC GLUCOSE Routine 01/27/2018 10:21 AM INVESTMENT BROKER POC GLUCOSE Routine 01/27/2018 8:20 AM INVESTMENT BROKER POC GLUCOSE Routine 01/26/2018 5:55 PM INVESTMENT BROKER POC GLUCOSE Routine 01/26/2018 4:33 PM INVESTMENT BROKER POC GLUCOSE Routine 01/26/2018 12:21 PM INVESTMENT BROKER POC GLUCOSE Routine 01/26/2018 8:04 AM INVESTMENT BROKER POC GLUCOSE Routine 01/25/2018 9:05 PM INVESTMENT BROKER POC GLUCOSE Routine 01/25/2018 5:21 PM INVESTMENT BROKER POC GLUCOSE Routine 01/25/2018 2:07 PM INVESTMENT BROKER POC GLUCOSE Routine 01/25/2018 12:42 PM INVESTMENT BROKER POC GLUCOSE Routine 01/25/2018 8:10 AM INVESTMENT BROKER ESTIMATED GFR Routine 01/25/2018 4:00 AM INVESTMENT BROKER BASIC METABOLIC PANEL Routine 01/25/2018 4:00 AM INVESTMENT BROKER HC COMPLETE BLD COUNT W/AUTO Routine 01/25/2018 4:00 AM INVESTMENT BROKER Results for this DIFF procedure are in the results section. POC GLUCOSE Routine 01/24/2018 9:13 PM INVESTMENT BROKER POC GLUCOSE Routine 01/24/2018 4:20 PM INVESTMENT BROKER POC GLUCOSE Routine 01/24/2018 4:06 PM INVESTMENT BROKER POC GLUCOSE Routine 01/24/2018 3:03 PM INVESTMENT BROKER POC GLUCOSE Routine 01/24/2018 3:02 PM INVESTMENT BROKER POC GLUCOSE Routine 01/24/2018 8:35 AM INVESTMENT BROKER POC GLUCOSE Routine 01/24/2018 6:14 AM INVESTMENT BROKER POC GLUCOSE Routine 01/24/2018 4:56 AM INVESTMENT BROKER POC GLUCOSE Routine 01/23/2018 9:33 PM INVESTMENT BROKER POC GLUCOSE Routine 01/23/2018 6:28 PM INVESTMENT BROKER NM MYOCARDIAL PERFUSION Routine 01/23/2018 10:09 AM INVESTMENT BROKER Results for this STRESS ONLY procedure are in the results section. CV STRESS TEST NUCLEAR Routine 01/23/2018 10:09 AM INVESTMENT BROKER Results for this CARDIO procedure are in the results section. US CAROTID DUPLEX BILATERAL Routine 01/23/2018 7:35 AM INVESTMENT BROKER POC GLUCOSE Routine 01/23/2018 5:33 AM INVESTMENT BROKER POC GLUCOSE Routine 01/22/2018 10:38 PM INVESTMENT BROKER POC GLUCOSE Routine 01/22/2018 9:18 PM INVESTMENT BROKER POC GLUCOSE Routine 01/22/2018 5:35 PM INVESTMENT BROKER POC GLUCOSE Routine 01/22/2018 2:[address] LUMBAR SPINE W CONTRAST Routine 01/22/2018 11:43 AM INVESTMENT BROKER POC GLUCOSE Routine 01/22/2018 9:00 AM INVESTMENT BROKER HC COMPLETE BLD COUNT W/AUTO Routine 01/22/2018 5:40 AM INVESTMENT BROKER Results for this DIFF procedure are in the results section. POC GLUCOSE Routine 01/22/2018 5:08 AM INVESTMENT BROKER ESTIMATED GFR Routine 01/22/2018 4:00 AM INVESTMENT BROKER MAGNESIUM LEVEL Routine 01/22/2018 4:00 AM INVESTMENT BROKER BASIC METABOLIC PANEL Routine 01/22/2018 4:00 AM INVESTMENT BROKER POC GLUCOSE Routine 01/21/2018 5:03 PM INVESTMENT BROKER URINALYSIS SCREEN AND STAT 01/21/2018 12:50 PM INVESTMENT BROKER Results for this MICROSCOPY, WITH REFLEX TO procedure are in the CULTURE results section. URINE CULTURE STAT 01/21/2018 12:49 PM INVESTMENT BROKER POC GLUCOSE Routine 01/21/2018 12:41 PM INVESTMENT BROKER BLOOD CULTURE, AEROBIC & Routine 01/21/2018 11:34 AM INVESTMENT BROKER Results for this ANAEROBIC procedure are in the results section. BLOOD CULTURE, AEROBIC & Routine 01/21/2018 11:22 AM INVESTMENT BROKER Results for this ANAEROBIC procedure are in the results section. POC GLUCOSE Routine 01/21/2018 8:22 AM INVESTMENT BROKER ECHOCARDIOGRAM 2D COMPLETE W Routine 01/21/2018 7:37 AM INVESTMENT BROKER Results for this MMODE SPECTRAL COLOR DOPPLER procedure are in the (50356) results section. POC GLUCOSE Routine 01/21/2018 4:21 AM INVESTMENT BROKER C-REACTIVE PROTEIN Routine 01/21/2018 4:00 AM INVESTMENT BROKER ESTIMATED GFR Routine 01/21/2018 4:00 AM INVESTMENT BROKER FOLATE RBC (GROUP TEST) Routine 01/21/2018 4:00 AM INVESTMENT BROKER VITAMIN B12 LEVEL Routine 01/21/2018 4:00 AM INVESTMENT BROKER THYROID STIMULATING HORMONE Routine 01/21/2018 4:00 AM INVESTMENT BROKER T4, FREE Routine 01/21/2018 4:00 AM INVESTMENT BROKER PHOSPHORUS LEVEL Routine 01/21/2018 4:00 AM INVESTMENT BROKER MAGNESIUM LEVEL Routine 01/21/2018 4:00 AM INVESTMENT BROKER HEMOGLOBIN A1C Routine 01/21/2018 4:00 AM INVESTMENT BROKER COMPREHENSIVE METABOLIC Routine 01/21/2018 4:00 AM INVESTMENT BROKER Results for this PANEL procedure are in the results section. HC COMPLETE BLD COUNT W/AUTO Routine 01/21/2018 4:00 AM INVESTMENT BROKER Results for this DIFF procedure are in the results section. SEDIMENTATION RATE STAT 01/21/2018 4:00 AM INVESTMENT BROKER POC GLUCOSE Routine 01/21/2018 3:46 AM INVESTMENT BROKER POC GLUCOSE Routine 01/20/2018 11:10 PM INVESTMENT BROKER US DUPLEX ARTERIAL LOWER STAT 01/20/2018 6:20 PM INVESTMENT BROKER Results for this EXTREMITY BILATERAL procedure are in the results section. POC GLUCOSE Routine 01/20/2018 5:37 PM INVESTMENT BROKER US DUPLEX VENOUS LOWER STAT 01/20/2018 5:20 PM INVESTMENT BROKER Results for this EXTREMITY BILATERAL procedure are in the results section. POC GLUCOSE Routine 01/20/2018 5:03 PM INVESTMENT BROKER POC GLUCOSE Routine 01/20/2018 4:35 PM INVESTMENT BROKER ECG 12-LEAD STAT 01/20/2018 4:07 PM INVESTMENT BROKER POC GLUCOSE Routine 01/20/2018 3:49 PM INVESTMENT BROKER ESTIMATED GFR STAT 01/20/2018 1:30 PM INVESTMENT BROKER COMPREHENSIVE METABOLIC STAT 01/20/2018 1:30 PM INVESTMENT BROKER Results for this PANEL procedure are in the results section. HC COMPLETE BLD COUNT W/AUTO STAT 01/20/2018 1:30 PM INVESTMENT BROKER Results for this DIFF procedure are in the results section. after 04/07/2017 Results POC glucose (03/10/2018 12:09 PM INVESTMENT BROKER)Only the most recent of213 resultswithin the time period is included. POC glucose 101 (H) 65 - 99 mg/dL [facility] Comment: [facility] Notified RN Meter ID: [id number] Audio Operator: Xavier Blackman Performing Organization Address City/State/Zipcode Phone Number [facility] DEPARTMENT OF PATHOLOGY AND [address] [place] [address] GENOMIC MEDICINE [address] [address] Estimated GFR (03/06/2018 12:05 AM INVESTMENT BROKER)Only the most recent of24 resultswithin the time period is included. Estimated GFR >=90 mL/min/1.73 m2 [facility] Comment: HOSPITAL CatergoryUnitsInterpretation G1 >=90 Normal or high G2 60-89Mildly decreased [id number] to moderately decreased G5o80-95Tzawtgslyy to severely decreased G4 15-29Severely decreased G5 <15Kidney failure The eGFR was calculated using the Chronic Kidney Disease Epidemiology Collaboration (CKD-EPI) equation. Interpretation is based on recommendations of the National Kidney Foundation-Kidney Disease Outcomes Quality Initiative (NKF-KDOQI) published in 2014. Specimen Plasma specimen Performing Organization Address City/State/Zipcode Phone Number [facility] DEPARTMENT OF PATHOLOGY AND [address] [place] [address] GENOMIC MEDICINE [facility] [address] [place] [address] CBC with platelet and differential (03/06/2018 12:05 AM INVESTMENT BROKER)Only the most recent of21 resultswithin the time period is included. WBC 4.97 4.50 - 11.00 k/uL [facility] RBC 3.56 (L) 4.40 - 6.00 m/uL [facility] HGB 9.2 (L) 14.0 - 18.0 g/dL [facility] HCT 29.5 (L) 41.0 - 51.0 % [facility] MCV 82.9 82.0 - 100.0 fL [facility] MCH 25.8 (L) 27.0 - 34.0 pg [facility] MCHC 31.2 31.0 - 37.0 g/dL [facility] RDW - SD 60.4 (H) 37.0 - 55.0 fL [facility] MPV 10.8 8.8 - 13.2 fL [facility] Platelet count 219 150 - 400 k/uL [facility] Nucleated RBC 0.00 /100 WBC [facility] Neutrophils 66.0 39.0 - 69.0 % [facility] Lymphocytes 17.9 (L) 25.0 - 45.0 % [facility] Monocytes 10.5 (H) 0.0 - 10.0 % [facility] Eosinophils 3.2 0.0 - 5.0 % [facility] Basophils 0.6 0.0 - 1.0 % [facility] Immature granulocytes 1.8 (H)Comment: 0.0 - 1.0 % [facility] "Immature HOSPITAL granulocytes" (promyelocytes, myelocytes, metamyelocytes) Specimen Blood Performing Organization Address City/[facility]/Zipcode Phone Number [facility] DEPARTMENT OF PATHOLOGY AND [address] [place], [place] [id number] [place] [phone] Basic metabolic panel (03/06/2018 12:05 AM INVESTMENT BROKER)Only the most recent of20 resultswithin the time period is included. Sodium 137 135 - 148 mEq/L [facility] Potassium 4.2 3.5 - 5.0 mEq/L [facility] Chloride 98 98 - 112 mEq/L [facility] CO2 27 24 - 31 mEq/L [facility] Anion gap 12@ANIO 7 - 15 mEq/L [facility] BUN 12 8 - 23 mg/dL [facility] Creatinine 0.69 (L) 0.70 - 1.20 mg/dL [facility] Glucose 96 65 - 99 mg/dL [facility] Calcium 8.8 8.8 - 10.2 mg/dL [facility] Specimen Plasma specimen Performing Organization Address City/[facility] Phone Number [facility] DEPARTMENT OF PATHOLOGY AND [address] [address] CBC hemogram (2018 12:55 AM INVESTMENT BROKER)Only the most recent of2 resultswithin the time period is included. WBC 4.63 4.50 - 11.00 k/uL [facility] RBC 3.65 (L) 4.40 - 6.00 m/uL [facility] HGB 9.3 (L) 14.0 - 18.0 g/dL [facility] HCT 30.3 (L) 41.0 - 51.0 % [facility] MCV 83.0 82.0 - 100.0 fL [facility] MCH 25.5 (L) 27.0 - 34.0 pg [facility] MCHC 30.7 (L) 31.0 - 37.0 g/dL [facility] RDW - SD 61.4 (H) 37.0 - 55.0 fL [facility] MPV 10.6 8.8 - 13.2 fL [facility] Platelet count 249 150 - 400 k/uL [facility] Nucleated RBC 0.00 /100 WBC [facility] Specimen Blood Performing Organization Address City/[facility] Phone Number [facility] DEPARTMENT OF PATHOLOGY AND [address] [place] [phone] [place] [phone] Phosphorus level (03/04/2018 3:13 AM INVESTMENT BROKER)Only the most recent of14 resultswithin the time period is included. Phosphorus 3.1 2.4 - 4.5 mg/dL [facility] Specimen Plasma specimen Performing Organization Address [facility] Phone Number [facility] DEPARTMENT OF PATHOLOGY AND [address] [place] [phone] Magnesium level (03/04/2018 3:13 AM INVESTMENT BROKER)Only the most recent of15 resultswithin the time period is included. Magnesium 2.0 1.6 - 2.4 mg/dL [facility] Specimen Plasma specimen Performing Organization Address [facility] Phone Number [facility] DEPARTMENT OF PATHOLOGY AND [address] [place] [phone] [place] [phone] Ionized calcium (03/04/2018 3:13 AM INVESTMENT BROKER)Only the most recent of2 resultswithin the time period is included. pH 7.50 [facility] Ionized calcium 1.17 1.11 - 1.32 mmol/L [facility] Specimen Plasma specimen Performing Organization Address [facility] Phone Number [facility] DEPARTMENT OF PATHOLOGY AND [address] [place] [phone] [place] [phone] Smear review (03/02/2018 2:20 AM INVESTMENT BROKER)Only the most recent of2 resultswithin the time period is included. Platelet slide review Alexy adequate [facility] Performing Organization Address City/[facility] Phone Number [facility] DEPARTMENT OF PATHOLOGY AND [address] [place] [phone] [place] [phone] Comprehensive metabolic panel (03/01/2018 2:11 AM INVESTMENT BROKER)Only the most recent of4 resultswithin the time period is included. Sodium 136 135 - 148 mEq/L [facility] Potassium 4.3 3.5 - 5.0 mEq/L [facility] Chloride 97 (L) 98 - 112 mEq/L [facility] CO2 26 24 - 31 mEq/L [facility] Anion gap 13@ANIO 7 - 15 mEq/L [facility] BUN 17 8 - 23 mg/dL [facility] Creatinine 0.77 0.70 - 1.20 mg/dL [facility] Glucose 220 (H) 65 - 99 mg/dL [facility] Calcium 8.9 8.8 - 10.2 mg/dL [facility] Protein 6.4 6.3 - 8.3 g/dL [facility] Comment: HOSPITAL 4.6-7.0 g/dL 1 week 4.4-7.6 g/dL 7 months-1year5.1-7.3 g/dL 1-2 years5.6-7.5 g/dL >3 years6.0-8.0 g/dL 18-150 6.3-8.3 g/dL Albumin 2.0 (L) 3.5 - 5.0 g/dL [facility] A/G ratio 0.5 (L) 0.7 - 3.8 [facility] Alkaline phosphatase 585 (H) 40 - 129 U/L [facility] AST 45 10 - 50 U/L [facility] ALT 33 5 - 50 U/L [facility] Total bilirubin <0.2 0.0 - 1.2 mg/dL [facility] Specimen Plasma specimen Performing Organization Address City/[facility] Phone Number [facility] DEPARTMENT OF PATHOLOGY AND [address] [place] [phone] [address] Potassium level (02/28/2018 8:30 PM INVESTMENT BROKER) Potassium 4.0 3.5 - 5.0 mEq/L [facility] Specimen Plasma specimen Performing Organization Address City/[facility] Phone Number [facility] DEPARTMENT OF PATHOLOGY AND [address] [place] [phone] [address] IR Lumbar Puncture by Radiology (02/28/2018 2:18 PM INVESTMENT BROKER) Narrative Performed At EXAMINATION:Fluoroscopically guided placement of lumbar drain [facility] CLINICAL HISTORY:please place lumbar drain for CSF leaking from incision COMPARISON:None. PROCEDURE After informed consent was obtained, the patient was placed in the prone position on the biplane fluoroscopy table. After informed consent was obtained, the patient was placed in the prone position on the fluoroscopy table. IV conscious sedation was administered by intravenous injection of a small amount of Versed and fentanyl. Continuous monitoring and according of the patient's vital signs was carried out under my direct supervision during the procedure, and subsequently in the recovery room until discharge. Intra-service IV moderate conscious sedation [id number] sedation time: 18 minutes The low back was prepped and draped in usual manner. Local anesthesia was made by infiltration with 1% lidocaine. Under sterile technique and utilizing fluoroscopic guidance, lumbar puncture was made at the level of the L-2-L3 intervertebral disc space by means of a 14-gauge spinal needle and a lumbar drain catheter was inserted and advanced superiorly until its tip was at the T10-11 level. CSF could be obtained keeping from the external end of the drain. The drain catheter was subsequently affixed to the skin by a single suture. A sterile dressing was applied. The patient tolerated the procedure well. Fluoroscopic images were saved. Total fluoroscopy time 2.4 minutes IMPRESSION: Uneventful fluoroscopically guided placement of lumbar drain via lumbar puncture at the L2-3 level. The lumbar drain tip was at the T10-11 level. [id number] Procedure Note Interface, Radiology Results Incoming - 02/28/2018 5:14 PM INVESTMENT BROKER EXAMINATION: Fluoroscopically guided placement of lumbar drain CLINICAL HISTORY: please place lumbar drain for CSF leaking from incision COMPARISON: None. PROCEDURE After informed consent was obtained, the patient was placed in the prone position on the biplane fluoroscopy table. After informed consent was obtained, the patient was placed in the prone position on the fluoroscopy table. IV conscious sedation was administered by intravenous injection of a small amount of Versed and fentanyl. Continuous monitoring and according of the patient's vital signs was carried out under my direct supervision during the procedure, and subsequently in the recovery room until discharge. Intra-service IV moderate conscious sedation [id number] sedation time: 18 minutes The low back was prepped and draped in usual manner. Local anesthesia was made by infiltration with 1% lidocaine. Under sterile technique and utilizing fluoroscopic guidance, lumbar puncture was made at the level of the L-2-L3 intervertebral disc space by means of a 14- gauge spinal needle and a lumbar drain catheter was inserted and advanced superiorly until its tip was at the T10-11 level. CSF could be obtained keeping from the external end of the drain. The drain catheter was subsequently affixed to the skin by a single suture. A sterile dressing was applied. The patient tolerated the procedure well. Fluoroscopic images were saved. Total fluoroscopy time 2.4 minutes IMPRESSION: Uneventful fluoroscopically guided placement of lumbar drain via lumbar puncture at the L2-3 level. The lumbar drain tip was at the T10-11 level. [id number] Performing Organization Address [facility] Phone Number [facility] [address] [place] [phone] Sedimentation rate (02/24/2018 4:40 PM INVESTMENT BROKER)Only the most recent of4 resultswithin the time period is included. Sedimentation rate 89 (H) 0 - 10 mm/hr [facility] Specimen Blood Performing Organization Address [facility] Phone Number [facility] DEPARTMENT OF PATHOLOGY AND [address] [place] [phone] C-reactive protein (02/24/2018 4:40 PM INVESTMENT BROKER)Only the most recent of5 resultswithin the time period is included. CRP 4.30 (H) 0.00 - 0.50 mg/dL [facility] Specimen Plasma specimen Performing Organization Address [facility] Phone Number [facility] DEPARTMENT OF PATHOLOGY AND [address] [place] [phone] [place] [phone] MRI Lumbar Spine W Wo Contrast (02/24/2018 2:29 PM INVESTMENT BROKER)Only the most recent of2 resultswithin the time period is included. Narrative Performed At EXAMINATION: MRI LUMBAR SPINE W WO CONTRAST [facility] CLINICAL HISTORY: csf leak Technique: Routine MRI of the lumbar spine with and without contrast.8 mL of Gadavist intravenous. Comparison: MRI 01/30/2018 Findings: For the purposes of this dictation, the last well-defined interspace is called L5-S1. There is dextrocurvature of the lumbar spine. There is subtle retrolisthesis of L3 on L4 and L2 on L3. Lumbar vertebral body heights are grossly maintained. There is L2-L3 disc degeneration. There are postsurgical changes of L3-L4 laminectomy. There is posterior lumbar soft tissue collection measuring approximately 5.7 x 3.4 cm in axial dimension on series 10 image 14 and spanning approxima tely 4 cm in craniocaudal dimension with surgical drain in place. There is lumbar soft tissue enhancement above and below which could be postsurgical with infection not excluded. There is abnormal hyperintense disc at L3-L4 with adjacent L3 and L4 vertebral body marrow edema and enhancement. There are paraspinal inflammatory changes and edema in the left greater than right psoas muscles. There is ventral epidural enhancement extending from L3 level down to S1 level and on the left at S1 suspicious for epidural phlegmon and/or abscess. L1-2: Disc bulge eccentric to the right. Right subarticular zone narrowing. No central spinal stenosis. No significant neural foraminal narrowing. L2-3: Mild to moderate canal stenosis. Disc bulge. Mild to moderate left neural foraminal narrowing. L3-4: Mild canal stenosis. Bilateral facet arthropathy. Moderate to marked left and moderate to marked right neural foraminal narrowing. L4-5: There is right ventral epidural collection. There is moderate to marked thecal sac stenosis. Moderate left neural foraminal narrowing. Enhancement in the right neural foramen. L5-S1: Ventral and left epidural collection. No significant thecal sac stenosis. Mild left and mild right neural foraminal narrowing. Normal appearance and position of the terminal spinal cord. Impression: Postsurgical changes of L3-L4 laminectomy with posterior lumbar soft tissue collection with surgical drain in place. There is abnormal L3-4 hyperintense disc with adjacent L3 and L4 vertebral body marrow edema and enhancement suspicious for discitis osteomyelitis. There is left greater in the right paravertebral inflammatory changes. There is ventral epidural enhancement and collection spanning L3 to S1 level and on the left at S1 level suspicious for epidural phlegmon and/or abscess. Moderate to marked thecal sac stenosis at L4-L5. [id number] Procedure Note [facility], Radiology Results Incoming - 02/24/2018 5:17 PM INVESTMENT BROKER EXAMINATION: MRI LUMBAR SPINE W WO CONTRAST CLINICAL HISTORY: csf leak Technique: Routine MRI of the lumbar spine with and without contrast. 8 mL of Gadavist intravenous. Comparison: MRI 01/30/2018 Findings: For the purposes of this dictation, the last well-defined interspace is called L5-S1. There is dextrocurvature of the lumbar spine. There is subtle retrolisthesis of L3 on L4 and L2 on L3. Lumbar vertebral body heights are grossly maintained. There is L2-L3 disc degeneration. There are postsurgical changes of L3-L4 laminectomy. There is posterior lumbar soft tissue collection measuring approximately 5.7 x 3.4 cm in axial dimension on series 10 image 14 and spanning approximately 4 cm in craniocaudal dimension with surgical drain in place. There is lumbar soft tissue enhancement above and below which could be postsurgical with infection not excluded. There is abnormal hyperintense disc at L3-L4 with adjacent L3 and L4 vertebral body marrow edema and enhancement. There are paraspinal inflammatory changes and edema in the left greater than right psoas muscles. There is ventral epidural enhancement extending from L3 level down to S1 level and on the left at S1 suspicious for epidural phlegmon and/or abscess. L1-2: Disc bulge eccentric to the right. Right subarticular zone narrowing. No central spinal stenosis. No significant neural foraminal narrowing. L2-3: Mild to moderate canal stenosis. Disc bulge. Mild to moderate left neural foraminal narrowing. L3-4: Mild canal stenosis. Bilateral facet arthropathy. Moderate to marked left and moderate to marked right neural foraminal narrowing. L4-5: There is right ventral epidural collection. There is moderate to marked thecal sac stenosis. Moderate left neural foraminal narrowing. Enhancement in the right neural foramen. L5-S1: Ventral and left epidural collection. No significant thecal sac stenosis. Mild left and mild right neural foraminal narrowing. Normal appearance and position of the terminal spinal cord. Impression: Postsurgical changes of L3-L4 laminectomy with posterior lumbar soft tissue collection with surgical drain in place. There is abnormal L3-4 hyperintense disc with adjacent L3 and L4 vertebral body marrow edema and enhancement suspicious for discitis osteomyelitis. There is left greater in the right paravertebral inflammatory changes. There is ventral epidural enhancement and collection spanning L3 to S1 level and on the left at S1 level suspicious for epidural phlegmon and/or abscess. Moderate to marked thecal sac stenosis at L4-L5. [id number] Performing Organization Address City/[facility]/Zipcode Phone Number [address] [address] Beta transferrin level (02/22/2018 7:52 AM INVESTMENT BROKER)Only the most recent of3 resultswithin the time period is included. Beta-2 transferrin See below [facility] Comment: Positive for B2- Transferrin. Reviewed by Dr. Radha Locke MD., Dr. Garcia Levin MD. Specimen Fluid Performing Organization Address City/[facility]/Zipcode Phone Number [facility] DEPARTMENT OF PATHOLOGY AND [address] [place] [phone] [place] [phone] B natriuretic peptide (02/20/2018 4:10 AM INVESTMENT BROKER)Only the most recent of2 resultswithin the time period is included. BNP 112 (H) 0 - 100 pg/mL [facility] Specimen Blood Performing Organization Address [facility] Phone Number [facility] DEPARTMENT OF PATHOLOGY AND [address] [place] [phone] [place] [address] Hemoglobin A1c (02/19/2018 3:30 AM INVESTMENT BROKER)Only the most recent of2 resultswithin the time period is included. Hemoglobin A1C 8.4 (H) 4.0 - 5.6 % [facility] Comment: HbA1c cutoffs for diagnosing diabetes: 4.0% - 5.6%=normal 5.7% - 6.4%=increased risk for diabetes (prediabetes) >=6.5%=diabetes Goals for glycemic control (ADA 2016) < 7.0%Target for non adults with diabetes. More or less stringent targets may be appropriate for individual patients. <7.5% Target for Children and adolescents with type 1 diabetes. Specimen Blood Performing Organization Address City/[facility]/Zipcode Phone Number [facility] DEPARTMENT OF PATHOLOGY AND [address] [place] [phone] [place] [phone] XR Picc Chest Portable (02/18/2018 2:29 PM INVESTMENT BROKER) Narrative Performed At EXAMINATION:XR PICC CHEST PORTABLE [facility] INDICATION:G06.2 Extradural and subdural abscessunspecified, Long-term antibiotics COMPARISON: February 14, 2018 IMPRESSION: 1.Right upper extremity PICC terminates at the cavoatrial junction. Clear lungs. 2.Remainder of the exam is unchanged including a small probable hiatal hernia. [facility]-[id number] Procedure Note Hm Interface, Radiology Results Incoming - 02/18/2018 3:03 PM INVESTMENT BROKER EXAMINATION: XR PICC CHEST PORTABLE INDICATION: G06.2 Extradural and subdural abscess unspecified, Long-term antibiotics COMPARISON: February 14, 2018 IMPRESSION: 1. Right upper extremity PICC terminates at the cavoatrial junction. Clear lungs. 2. Remainder of the exam is unchanged including a small probable hiatal hernia. [id number] Performing Organization Address City/State/Zipcode Phone Number [facility] [address] [place] [address] PICC insertion (02/18/2018 2:19 PM INVESTMENT BROKER) Narrative Performed At Darwin Triplett RN 02/18/20182:23 PM PICC insertion Date/Time: 02/18/2018 2:20 PM Performed by: Darwin Triplett RN Authorized by: Thomas Covarrubias MD Consent: Consent obtained:Verbal Consent given by:Patient Risks discussed: arterial puncture, incorrect placement, nerve damage, infection, bleeding, superficial thrombus and deep vein thrombus Alternatives discussed:No treatment, delayed treatment, alternative treatment, observation and referral [place] protocol: Procedure explained and questions answered to patient or proxy's satisfaction: yes Relevant documents present and verified: yes Test results available and properly labeled: yes Imaging studies available: yes Required blood products, implants, devices, and special equipment available: yes Site/side marked: yes Immediately prior to procedure, a time out was called: yes Patient identity confirmed:Arm band and hospital-assigned identification number Pre-procedure details: Hand hygiene: Hand hygiene performed prior to insertion Sterile barrier technique: All elements of maximal sterile technique followed Skin preparation:ChloraPrep Skin preparation agent: Skin preparation agent completely dried prior to procedure Anesthesia (see MAR for exact dosages): Anesthesia method:Local infiltration Local anesthetic:Lidocaine 1% w/o epi Route of administration:Subcutaneous PICC Line Placement Details (Will create an LDA): Patient position:Flat Vessel Size (mm): 5.5. 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 Location:Right basilic Device Type:Non-valved Catheter size:5 Fr PICC Characteristics: Catheter Brand:Bioflo picc External Catheter Length (cm):0 Internal Catheter Length (cm):41 Total Catheter Length (cm):41 Catheter Lot Number:[id number] Catheter Expiration Date:11/02/1919 Procedure Details: Landmarks identified: yes Ultrasound guidance: yes Sterile ultrasound techniques: Sterile gel and sterile probe covers were used Number of attempts:1 Number of PICC kits used during procedure:1 Purpose of procedure:PICC Placement Successful PICC Placement: Yes Patency/Placement:Flushes without difficulty, positive blood return, flushed with 10 mL normal saline, x-ray placement verified and injection cap placed PICC placed utlizing ultrasound-guided Modified Seldinger Technique: Yes Dressing/Securement:Catheter securement device and antimicrobial dressing dry and intact Blood Loss Amount:Less than 20 mL Post-Procedure Details: Post-procedure:Dressing applied Tip placement confirmed by chest x-ray: Yes Patient tolerance of procedure:Tolerated well, no immediate complications Vancomycin level, trough (02/16/2018 6:00 AM INVESTMENT BROKER) Vancomycin, trough 6.8 (L) 10.0 - 20.0 ug/mL [facility] Comment: HOSPITAL Therapeutic Ranges: Peak 30.0 - 40.0 ug/mL Aprggn23.0 - 20.0 ug/mL Specimen Serum Performing Organization Address City/[facility] Phone Number [facility] DEPARTMENT OF PATHOLOGY AND [address] [place] [phone] [address] AFB culture (02/15/2018 12:10 PM INVESTMENT BROKER)Only the most recent of5 resultswithin the time period is included. AFB culture isolate No growth after 6 weeks of incubation. [facility] Comment: Specimen Information Specimen Source: Bone Specimen Site: L3-L4 BONE Specimen Bone Performing Organization Address City/[facility] Phone Number [facility] DEPARTMENT OF PATHOLOGY AND [address] [place] [phone] [address] Aerobic culture (02/15/2018 12:10 PM INVESTMENT BROKER)Only the most recent of6 resultswithin the time period is included. Aerobic culture isolate Klebsiella aersepideh [facility] Recovered in Broth only: HOSPITAL susceptibility to follow This organism is NOT a carbapenemase producing organism. (A) Comment: Specimen Information Specimen Source: Bone Specimen Site: L3-L4 BONE Specimen Bone Organism Antibiotic Method Susceptibility Klebsiella aerogenes Ampicillin LYN >16 mcg/mL: Resistant Klebsiella aerogenes Amoxicillin/Clavulanate LYN >16/8 mcg/mL: Resistant Klebsiella aerogenes Amikacin LYN <=4 mcg/mL: Susceptible Klebsiella aerogenes Aztreonam LYN <=1 mcg/mL: Susceptible Klebsiella aerogenes Ceftazidime LYN <=0.5 mcg/mL: Susceptible Klebsiella aerogenes Ciprofloxacin LYN <=0.5 mcg/mL: Susceptible Klebsiella aerogenes Ceftriaxone LYN <=0.5 mcg/mL: Susceptible Klebsiella aerogenes Cefuroxime Sodium LYN 8 mcg/mL: Susceptible Klebsiella aerogenes Cefazolin LYN >32 mcg/mL: Resistant Klebsiella aerogenes Cefepime LYN <=0.5 mcg/mL: Susceptible Klebsiella aerogenes Cefoxitin LYN >16 mcg/mL: Resistant Klebsiella aerogenes Gentamicin LYN 1 mcg/mL: Susceptible Klebsiella aerogenes Imipenem LYN 2 mcg/mL: Resistant Klebsiella aerogenes Levofloxacin LYN <=1 mcg/mL: Susceptible Klebsiella aerogenes Meropenem LYN <=0.125 mcg/mL: Susceptible Klebsiella aerogenes Tobramycin LYN 1 mcg/mL: Susceptible Klebsiella aerogenes Ampicillin/Sulbactam LYN >16/8 mcg/mL: Resistant Klebsiella aerogenes Trimethoprim/Sulfamethoxazol LYN <=0.5/9.5 mcg/mL: Susceptible e Klebsiella aerogenes Tetracycline LYN <=1 mcg/mL: Susceptible Klebsiella aerogenes Piperacillin/Tazobactam LYN 4/4 mcg/mL: Susceptible Klebsiella aerogenes Ertapenem LYN <=0.125 mcg/mL: Susceptible Klebsiella aerogenes Tigecycline LYN 1 mcg/mL: Susceptible Performing Organization Address City/State/Zipcode Phone Number [facility] DEPARTMENT OF PATHOLOGY AND [address] [place] [address] GENOMIC MEDICINE [address] [address] Fungus culture (02/15/2018 12:10 PM INVESTMENT BROKER)Only the most recent of5 resultswithin the time period is included. Fungus culture isolate No growth after 4 weeks of incubation. [facility] Comment: HOSPITAL Specimen Information Specimen Source: Bone Specimen Site: L3-L4 BONE Specimen Bone Performing Organization Address City/[facility] Phone Number [facility] DEPARTMENT OF PATHOLOGY AND [address] [place] [phone] [address] Anaerobic culture (02/15/2018 12:10 PM INVESTMENT BROKER)Only the most recent of6 resultswithin the time period is included. Anaerobic culture isolate No anaerobic organisms isolated. [facility] Comment: HOSPITAL Specimen Information Specimen Source: Bone Specimen Site: L3-L4 BONE Specimen Bone Performing Organization Address [facility] Phone Number [facility] DEPARTMENT OF PATHOLOGY AND [address] [place] [address] [address] Fungus smear (02/15/2018 12:09 PM INVESTMENT BROKER)Only the most recent of4 resultswithin the time period is included. Fungus smear No fungi observed. [facility] Comment: Specimen Information Specimen Source: Wound Specimen Site: LUMBAR WOUND INTRA FACIAL #2 Specimen Wound Performing Organization Address [facility] Phone Number [facility] DEPARTMENT OF PATHOLOGY AND [address] [place] [address] [address] Gram stain (02/15/2018 12:09 PM INVESTMENT BROKER)Only the most recent of5 resultswithin the time period is included. Gram stain isolate Moderate WBC's [facility] No organisms seen Comment: Specimen Information Specimen Source: Wound Specimen Site: LUMBAR WOUND INTRA FACIAL #2 Specimen Wound Performing Organization Address [facility] Phone Number [facility] DEPARTMENT OF PATHOLOGY AND [address] [place] [phone] [address] AFB stain (02/15/2018 12:09 PM INVESTMENT BROKER)Only the most recent of4 resultswithin the time period is included. AFB stain No acid fast bacilli (AFB) seen. [facility] Comment: Specimen Information Specimen Source: Wound Specimen Site: LUMBAR WOUND INTRA FACIAL #2 Specimen Wound Performing Organization Address City/[facility] Phone Number [facility] DEPARTMENT OF PATHOLOGY AND [address] [place] [phone] [place] [phone] Prealbumin level (02/14/2018 9:18 PM INVESTMENT BROKER) Prealbumin 6 (L) 16 - 32 mg/dL [facility] Specimen Serum Performing Organization Address City/[facility] Phone Number [facility] DEPARTMENT OF PATHOLOGY AND [address] [place] [phone] Platelet function analysis (02/14/2018 6:15 PM INVESTMENT BROKER) PFA EPI closure time 94 92 - 184 sec [facility] PFA ADP closure time 98 72 - 126 sec [facility] Specimen Plasma specimen Performing Organization Address City/[facility] Phone Number [facility] DEPARTMENT OF PATHOLOGY AND [address] [place] [address] Blood culture, aerobic & anaerobic (02/14/2018 3:40 PM INVESTMENT BROKER)Only the most recent of4 resultswithin the time period is included. Blood culture isolate No growth after 5 days of incubation. [facility] Comment: HOSPITAL Specimen Information Specimen Source: Blood Specimen Site: Antecubital, left Specimen Blood - Antecubital, left Performing Organization Address [facility] Phone Number [facility] DEPARTMENT OF PATHOLOGY AND [address] [place] [address] Urinalysis, automated with microscopy (02/14/2018 3:39 PM INVESTMENT BROKER) Color, UA Straw [facility] Appearance, UA Clear [facility] Specific gravity, UA 1.012 1.001 - 1.035 [facility] pH, UA 6.0 5.0 - 8.5 [facility] Protein, UA Negative Negative [facility] Glucose, UA 3+ (A) Negative [facility] Ketones, UA Negative Negative [facility] Bilirubin, UA Negative Negative [facility] Blood, UA Negative Negative [facility] Nitrite, UA Negative Negative [facility] Urobilinogen, UA <2.0 <2.0 [facility] Comment: HOSPITAL Corrected result; previously reported as Footnote on 02/14/2018 at 17:21 by [facility] REVISED REPORT, Previously reported as: UNABLE TO REPORT (Reported 2017 17:21) Leukocyte esterase, UA Negative Negative [facility] Epithelial cells, UA <1 /HPF [facility] WBC, UA <1 0 - 1 /HPF [facility] RBC, UA 2 0 - 5 /HPF [facility] Bacteria, UA Few None seen [facility] Yeast, UA None seen [facility] Yeast with pseudohyphae, None seen [facility] Specimen Urine Performing Organization Address City/State/Zipcode Phone Number [facility] DEPARTMENT OF PATHOLOGY AND [address] [place] [phone] [place] [address] Prothrombin time with INR (02/14/2018 3:39 PM INVESTMENT BROKER)Only the most recent of2 resultswithin the time period is included. Prothrombin time 14.1 11.5 - 14.5 sec [facility] INR 1.1 [facility] Comment: HOSPITAL The International Normalized Ratio (INR) is a therapeutic monitoring tool for patients who are stable on oral anticoagulant therapy. An INR of 2.0-3.0 is suggested for deep vein thrombosis/pulmonary embolism. Specimen Blood Performing Organization Address City/[facility] Phone Number [facility] DEPARTMENT OF PATHOLOGY AND [address] [place] [phone] ECG 12 lead (02/14/2018 3:34 PM INVESTMENT BROKER)Only the most recent of4 resultswithin the time period is included. Ventricular rate 101 [facility] Atrial rate 101 [facility] GA interval 188 [facility] QRSD interval 136 [facility] QT interval 376 [facility] QTC interval 487 [facility] M[facility] P axis 1 40 [facility] QRS axis 1 -68 [facility] T wave axis 42 [facility] EKG impression Sinus tachycardia with premature atrial complexes with aberrant conduction-Left axis deviation-Right bundle branch block-Abnormal ECG- In automated comparison with ECG of 05-FEB-2018 12:57,-No significan [facility] M[facility] t change was found- Narrative Performed At Performing Organization Address City/State/Zipcode Phone Number [facility] MUSE [address] [place] [address] Type and screen (02/14/2018 3:32 PM INVESTMENT BROKER)Only the most recent of2 resultswithin the time period is included. ABO grouping AB [facility] Rh type POS [facility] Antibody screen (gel) NEG [facility] Specimen Blood Performing Organization Address [facility] Phone Number [facility] DEPARTMENT OF PATHOLOGY AND [address] [place] [address] GENOMIC MEDICINE [facility] [address] [place] [address] XR Chest 1 Vw Portable (02/14/2018 3:20 PM INVESTMENT BROKER)Only the most recent of2 resultswithin the time period is included. Narrative Performed At EXAMINATION:XR CHEST 1 VW PORTABLE [facility] CLINICAL HISTORY:preop COMPARISON:Chest x-ray 01/30/2018 IMPRESSION: Single frontal view reveals stable prominence of the cardiomediastinal silhouette status post median sternotomy. Lungs are clear. Pleural margins are sharp. The remainder of the examination is unchanged. [facility]-[id number] Procedure Note Hm Interface, Radiology Results Incoming - 02/14/2018 3:45 PM INVESTMENT BROKER EXAMINATION: XR CHEST 1 VW PORTABLE CLINICAL HISTORY: preop COMPARISON: Chest x-ray 01/30/2018 IMPRESSION: Single frontal view reveals stable prominence of the cardiomediastinal silhouette status post median sternotomy. Lungs are clear. Pleural margins are sharp. The remainder of the examination is unchanged. [facility]-[id number] Performing Organization Address [facility] Hospitalcode Phone Number [facility] [address] [place] [address] MRI Spine External Study (02/13/2018 3:08 PM INVESTMENT BROKER) Narrative Performed At This exam was not acquired at a Amish facility and has not been [facility] interpreted by a Amish Provider.The exam was imported into our imaging system for comparisons purposes. Performing Organization Address [facility] Hospitalcode Phone Number [facility] [address] [place] [address] Anaerobic and aerobic culture (02/08/2018) Specimen Body fluid Narrative Performed At Zinc level, serum (02/05/2018 3:10 AM INVESTMENT BROKER) Zinc 59 (L) 60 - 120 ug/dL [facility] Comment: INTERPRETIVE INFORMATION: Zinc, Serum or Plasma Circulating zinc concentrations are dependent on albumin status and are depressed with malnutrition. Zinc may also be lowered with infection, inflammation, stress, oral contraceptives, and . Zinc may be elevated with zinc supplementation or fasting. Elevated zinc concentrations may interfere with copper absorption. Test developed and characteristics determined by Doctor [facility]. See Compliance Statement B: [employer] Performed by [facility], [address] [place] [address] www.[employer], Guanakito Robert MD - Lab. Director Specimen Blood Performing Organization Address [facility] Hospitalcode Phone Number [facility] [address] [place] [address] [facility] REF LAB [address] [place] [address] Vitamin C level, plasma (02/05/2018 3:10 AM INVESTMENT BROKER) Vitamin C, plasma 37 23 - 114 umol/L [facility] RE[facility] Comment: INTERPRETIVE DATA: Vitamin C (Ascorbic Acid), Plasma Vitamin C concentrations lower than 11 umol/L indicate deficiency. Concentrations between 11 and 23 umol/L are consistent with a moderate risk of deficiency due to inadequate tissue stores. Vitamin C concentration is reported as micromoles per liter (umol/L). To convert concentration to milligrams per deciliter (mg/dL), multiply the result by 0.0176. Test developed and characteristics determined by Doctor Evidence. See Compliance Statement B: [employer] Performed by [facility], [address] [place] [id number] www.[email or web address], Guanakito Robert MD - Lab. Director Specimen Plasma specimen Performing Organization Address [facility]/Zipcode Phone Number [facility] [address] [place] [address] [facility] REF LAB [address] [place], [place] [id number] Vitamin D 25 hydroxy level (02/05/2018 3:10 AM INVESTMENT BROKER) Vitamin D, 25-hydroxy 18.4 (L) 30.0 - 150.0 [facility] Comment: ng/mL HOSPITAL This assay reports the [...] alternative methods. Specimen Blood Performing Organization Address City/[facility]/Zipcode Phone Number [facility] DEPARTMENT OF PATHOLOGY AND [address] [place] [address] Troponin (02/02/2018 7:22 PM INVESTMENT BROKER) Troponin <0.30 0.00 - 0.30 ng/mL [facility] Comment: 0.30 - 1.49 ng/mlMay indicate increased risk of acute coronary syndrome. >=1.5 ng/mlConsistent with acute myocardial infarction. The diagnostic value of a single normal or non-diagnostic result is questionable.Serial samples at 2-6 hour intervals are required to rule out acute myocardial injury. Specimen Plasma specimen Performing Organization Address City/[facility]code Phone Number [facility] DEPARTMENT OF PATHOLOGY AND [address] [place] [address] Lactic acid level (02/02/2018 7:22 PM INVESTMENT BROKER) Lactic acid 2.4 (H) 0.5 - 2.2 mmol/L [facility] Specimen Plasma specimen Performing Organization Address City/[facility]/Zipcode Phone Number [facility] DEPARTMENT OF PATHOLOGY AND [address] [place] [address] XR Lumbar Spine 1 Vw (01/31/2018 6:22 PM INVESTMENT BROKER)Only the most recent of3 resultswithin the time [...] spine for localization during lumbar spine surgery. [facility]-[id number] Procedure Note Hm Interface, Radiology Results Incoming - 01/31/2018 6:49 PM INVESTMENT BROKER EXAMINATION: XR LUMBAR SPINE 1 VW CLINICAL [...] spine for localization during lumbar spine surgery. [facility]-[id number] Performing Organization Address [facility] Phone Number [facility] [address] [place] [address] Surgical pathology request (01/31/2018 6:03 PM INVESTMENT BROKER) [facility] DEPARTMENT OF PATHOLOGY AND GENOMIC MEDICINE Surgical pathology report See link below for PDF [facility] DEPARTMENT OF Lab Report PATHOLOGY AND GENOMIC MEDICINE Result status This is Final Report [facility] DEPARTMENT OF for [id number] PATHOLOGY AND GENOMIC MEDICINE Performing Organization Address [facility] Phone Number [facility] DEPARTMENT OF PATHOLOGY AND [address] [place] [address] [employer] MEDICINE Cv laborer hide house procedure (01/28/2018 7:46 AM INVESTMENT BROKER) Narrative Performed At LM- 70% HM [facility] [...] IV sedation. Performing Organization Address [facility] Phone Number [facility] [address] [place] [address] Cv stress test (01/23/2018 10:09 AM INVESTMENT BROKER) Resting HR 62 H MUSE Resting BP 129 H MUSE Peak MET Achieved 1.0 [facility] MUSE Protocol Name MEGHAN [facility] MUSE Time in Exercise Phase 00:01:00 [facility] [...] Stress Test Impression -Waveform interpreted in report [facility] MUSE associated with image study. No interpretation is provided as part of this Stress ECG report.- Narrative Performed At Performing Organization Address [facility] Phone Number [facility] MUSE [address] [place] [address] Nm myocardial perfusion (01/23/2018 10:09 AM INVESTMENT BROKER) Narrative Performed At [facility] and Cardiac CT [address] [address] Myocardial Perfusion Imaging Report Stress ECG tracings are available in [employer], [employer] and CV Web All ECG interpretations are included in this report Pat.Name:TACHO CASTILLO RPat.ID:[id number] St.Date: 01/23/2018Exam Time: 9:00:00 AM Study Type:Myocardial Perfusion Imaging Height:69in BSA: 1.99 m2 DOBAge:1945,72Y Sex: MALEHR: 57 bpm HCT: 40.3 % Nuclear Tech:EITAN Cobian, ARRT(CT), EITAN Mtz ARRT (CT) Pat. Stat.:Inpatient Nuclear Event ID:[id number] Order ID:[id number] Reason for Study:CAD, prior CABG, CAD, prior [...] Radiology Results In - 01/27/2018 8:36 AM [facility] Nuclear Cardiology and Cardiac CT [address] [place] [address] Myocardial Perfusion Imaging Report Stress ECG tracings are available in [employer], [employer] and [employer] All ECG interpretations are included in this report Pat.Name: TACHO CASTILLO Pat.ID: [id number] .Date: 01/23/2018 Exam Time: 9:00:00 AM Study Type:Myocardial Perfusion Imaging Height: 69in BSA: 1.99 m2 Age: 103/05/1945,72Y Sex: MALE HR: 57 bpm HCT: 40.3 % Nuclear Tech:EITAN Cobian, ARRT(CT), EITAN Mtz, ARRT (CT) Pat. Stat.:Inpatient Nuclear Event ID:[id number] Order ID: [id number] Reason for Study:CAD, prior CABG, CAD, prior [...] PM Patricia Nam MD Performing Organization Address City/State/[facility] Phone Number [facility] [address] [place] [phone] Us carotid duplex (01/23/2018 7:35 AM INVESTMENT BROKER) Narrative Performed At [facility] Vascular Ultrasound Laboratory Carotid Artery Duplex Report [address] [facility] [address], [place] [id number] For air quality instrument specialist purposes, the categorization of the degree of the stenosis of this exam is based on criteria described in the IAC carotid stenosis grading white paper( www.intersocietal.org/Vascular) and Flynn Caraballo., Kayla Herbert., et al. Carotid artery stenosis: jmienez-scale and Doppler US diagnosis--Society of Radiologists in Ultrasound Consensus Conference. Radiology. 2003 Nov; 229(2):340-6. Pat.Name:TACHO CASTILLO [facility].ID:[id number] .Date: 01/23/2018Refer.MD:BUCK HERR MD Exam Time: 7:10:00 AMStudy Type:Carotid Height:81inDOBAge: 1945,72Y Sex: MALESonogrphr: Perry Callahan, RVS Pat. Stat.:Inpatient TapeVol: , CPT - 4: 88400 Echo Event ID:[id number] Order ID:[id number] Reason for Study:Carotid artery disease; PMHx of DM, HTN, AR, CAD s/p x3 CABG in 2005, skin [...] EDV11.1 cm/s Left CCA Mid CCA Mid SSC054 cm/sCCA Mid EDV 16 cm/s Left CCA [...] Radiology Results In - 01/23/2018 7:58 AM [facility] Vascular Ultrasound Laboratory Carotid Artery Duplex Report [address] [facility], [place] [address], [place] [address] For air quality instrument specialist purposes, the categorization of the degree of the stenosis of this exam is based on criteria described in the IAC carotid stenosis grading white paper( www.intersocietal.org/Vascular) and Flynn Caraballo., Nina Herbert, et al. Carotid artery stenosis: jimenez-scale and Doppler US diagnosis--Society of Radiologists in Ultrasound Consensus Conference. Radiology. 2003 Jan; 229(2):340-6. Pat.Name: TACHO CASTILLO Pat.ID: [id number] .Date: 01/23/2018 Refer.MD: BUCK HERR MD Exam Time: 7:10:00 AM Study Type:Carotid Height: 81in Age: 103/05/1945,72Y Sex: MALE Sonogrphr: FRANSISCO Elias Pat. Stat.:Inpatient Tape Vol: , CPT - 4: 22235 Echo Event ID:[id number] Order ID: [id number] Reason for Study:Carotid artery disease; PMHx of DM, HTN, AR, CAD s/p x3 CABG in 2005, skin [...] Organization Address City/State/Zipcode Phone Number [facility] [address] [place] [address] CT Lumbar Spine W Contrast (01/22/2018 11:43 AM INVESTMENT BROKER) Narrative Performed At EXAMINATION: CT LUMBAR SPINE [...] stenosis. Additional degenerative changes are detailed above. [id number] Procedure Note Hm Interface, Radiology Results Incoming - 01/22/2018 12:56 PM INVESTMENT BROKER EXAMINATION: CT LUMBAR SPINE W CONTRAST CLINICAL [...] stenosis. Additional degenerative changes are detailed above. [id number] Performing Organization Address City/[facility]/Zipcode Phone Number [facility] [address] [place] [address] Urinalysis screen and microscopy, with reflex to culture (01/21/2018 12:50 PM INVESTMENT BROKER) Specimen site Catheterized [facility] Color, UA Straw [facility] Appearance, UA Clear [facility] Specific gravity, UA 1.012 1.001 - 1.035 [facility] pH, UA 7.0 5.0 - 8.5 [facility] Protein, UA Negative Negative [facility] Glucose, UA 1+ (A) Negative [facility] Ketones, UA Negative Negative [facility] Bilirubin, UA Negative Negative [facility] Blood, UA Negative Negative [facility] Nitrite, UA Negative Negative [facility] Urobilinogen, UA 4.0 (A) <2.0 [facility] Leukocyte esterase, UA Negative Negative [facility] WBC, UA 1 0 - 1 /HPF [facility] RBC, UA <1 0 - 5 /HPF [facility] Bacteria, UA None seen None seen [facility] Yeast, UA None seen [facility] Yeast with pseudohyphae, UA None seen [facility] Hyaline casts, UA 1 /LPF [facility] Specimen Urine Performing Organization Address [facility]code Phone Number [facility] DEPARTMENT OF PATHOLOGY AND [address] [place] [address] [address] Urine culture (01/21/2018 12:49 PM INVESTMENT BROKER) Urine culture SEE COMMENTComment: Bacteriuria [facility] screen negative. Performing Organization Address City/[facility]/Zipcode Phone Number [facility] DEPARTMENT OF PATHOLOGY AND [address] [place] [address] [address] Echocardiogram complete w contrast and 3D if needed (01/21/2018 7:37 AM INVESTMENT BROKER) Narrative Performed At [facility] Echocardiography Report [address] [facility] [address], [place] [address] Pat.Name:TACHO CASTILLO RPat.ID:[id number] .Date: 01/21/2018Refer.MD:KUN OLMOS MD Exam Time: 7:16:00 AMSthallie Type:Routine Echo Height:69inWeight: 180lb BSA: 1.98 m2 DOBAge:1945,72Y Sex: MALEBP:181/79 HR:83 bpmSonogrphr: Frederic Boyle RDCS Pat. Stat.:Inpatient Room:[facility] Study Status:Final Echo Event ID:[id number] Order ID:[id number] Reason for Study:HEART FAILURE History / Clinical:Coronary [...] is RAPof 5mmHg. MEASUREMENTS: 2D Parasternal Long [place] LVOT 2.1 cmLA Ds3.8 cm LVIDd4.3 cmIndex2.2 cm/m Ao An2.2 cm LVIDs3.5 cmAo Rtd 3.7 cm Index1.9 cm/m LV%fs 18.6 % LV Pavi695.3 g(122-174) IVSd 1.8 cmLVM Qrxxs344.7 g/m2 LVPWd1.6 cmRWT0.7 LA Sng Plane LA Area 29.9 cm2(8.8-23.4) LA Vol 110.7 ml Index55.9 ml/m LA LngAx 6.6 cm RA Sng Plane RA Area 24.8 cm2(8.3-19.5) RA Vol80.9 ml Index40.9 ml/m RA LngAx 6.4 cm DOPPLER LVOT Stroke Vol LVOT 2.1 cmLVOT CO5.6 l/min LVOT TVI19.9 cmLVOT CI2.8 l/m/m2 LVOT Tm294 dpbnXC54 bpm LVOT SV 68.9 ml AV For Flow/Valve Assess AV pkVel 195.6 cm/s (100-170) AV ET253 msec AV mnVel 111.1 cm/[place] AC/ET 0.2 AV pkPG 15.3 mmHgAV TVI28.1 cm AV Mean G6.7 mmHgAVpkAcRt 5823.7 cm/s2 AV AC 51 msec (83-118) Signed 01/21/2018 10:39 AM Sherman Ramirez M.D. Procedure Note Interface, Radiology Results In - 01/21/2018 10:39 AM [facility] Echocardiography Report [address] [place] [address], [place] [address] Pat.Name: TACHO CASTILLO Pat.ID: [id number] .Date: 01/21/2018 Refer.MD: KUN OLMOS MD Exam Time: 7:16:00 AM Study Type:Routine Echo Height: 69in Weight: 180lb BSA: 1.98 m2 Age: 103/05/1945,72Y Sex: MALE BP: 181/79 HR: 83 bpm Sonogrphr: Frederic Boyle RDCS Pat. Stat.:Inpatient Room: [facility] Study Status:Final Echo Event ID:[id number] Order ID: [id number] Reason for Study:HEART FAILURE History / Clinical:Coronary [...] RAP of 5mmHg. MEASUREMENTS: 2D Parasternal Long [place] LVOT 2.1 cm LA Ds 3.8 cm [...] AM Sherman Ramirez M.D. Performing Organization Address City/State/Zipcode Phone Number [facility] [address] [place] [address] Thyroid stimulating hormone (01/21/2018 4:00 AM INVESTMENT BROKER) TSH 1.46 0.27 - 4.20 uIU/mL [facility] Specimen Plasma specimen Performing Organization Address City/[facility] Phone Number [facility] DEPARTMENT OF PATHOLOGY AND [address] [place] [address] T4, free (01/21/2018 4:00 AM INVESTMENT BROKER) T4, free 1.4 0.9 - 1.7 ng/dL [facility] Specimen Plasma specimen Performing Organization Address [facility] Phone Number [facility] DEPARTMENT OF PATHOLOGY AND [address] [place] [address] Folate RBC (group test) (01/21/2018 4:00 AM INVESTMENT BROKER) RBC folate 1,126 499 - 1,504 ng/mL [facility] Specimen Blood Performing Organization Address [facility] Phone Number [facility] DEPARTMENT OF PATHOLOGY AND [address] [place] [address] Vitamin B12 level (01/21/2018 4:00 AM INVESTMENT BROKER) Vitamin B12 1,136 (H) 211 - 946 pg/mL [facility] Comment: Significant overlap exists between normal and deficiency states. However, most patients with deficiencies will have Serum B12 <200 pg/mL. Specimen Serum Performing Organization Address [facility] Phone Number [facility] DEPARTMENT OF PATHOLOGY AND [address] [place] [address] PV duplex arterial lower extremity (01/20/2018 6:20 PM INVESTMENT BROKER) Narrative Performed At [facility] Vascular Ultrasound Laboratory Lower Extremity Arterial Duplex Report [address] [place] [address].Name:TACHO CASTILLO [facility].ID:[id number] St.Date: 01/20/2018Refer.MD:PHYSICIAN, EMERGENCY, MD Exam Time: 5:06:00 PMStudy Type:LE Arterial Height:81inDOBAge: 1945,72Y Sex: MALESonogrphr: Tim Walsh, RDMS, RVT Pat. Stat.:OutpatientRoom:ER 8 TapeVol: , [facility] - 4: [address] Echo Event ID:[id number] Order ID:[id number] Reason for Study:Poor pulsation with edematous legs [...] Pedis TriphasicTriphasic Anterior TibialTriphasicTriphasic MEASUREMENTS: DOPPLER Right PRODUCT DEVELOPMENT CHEMIST prox PRODUCT DEVELOPMENT CHEMIST prox PSV 126 cm/s PRODUCT DEVELOPMENT CHEMIST Right PRODUCT DEVELOPMENT CHEMIST Prox 60 degLeft PRODUCT DEVELOPMENT CHEMIST Prox D60 deg Right SFA Prox SFA Prox PSV 107 cm/s SFA Right SFA Prox 60 degLeft SFA Mid Do60 deg Left SFA Dist D60 deg Right Pop Dist Pop Dist PSV 128 cm/s Popliteal Right Pmahqsiua57 degLeft Popliteal 60 deg Right Kwtkmemhf08 deg Right Pop Prox Pop Prox PSV 153 cm/s Right INSPECTOR CANNED FOOD RECONDITIONING Dist INSPECTOR CANNED FOOD RECONDITIONING Dist PSV93 cm/s Tibial Post Right Tibial Po60 degLeft Tibial Pos60 deg Left Tibial Pos60 deg Right INSPECTOR CANNED FOOD RECONDITIONING Prox INSPECTOR CANNED FOOD RECONDITIONING Prox PSV84.9 cm/sPTA Prox PSV 108 cm/s Tibial Art Right Tibial Ar 0 degLeft Tibial Art60 deg Left Tibial Art60 deg Left PRODUCT DEVELOPMENT CHEMIST prox PRODUCT DEVELOPMENT CHEMIST prox PSV 139 cm/s SFA Dist SFA Dist PSV97 cm/s Left SFA Mid SFA Mid EQY759 cm/s Left Pop Dist Pop Dist PSV 103 cm/s Left INSPECTOR CANNED FOOD RECONDITIONING Dist INSPECTOR CANNED FOOD RECONDITIONING Dist PSV77.1 cm/s INSPECTOR CANNED FOOD RECONDITIONING Prox INSPECTOR CANNED FOOD RECONDITIONING Prox PSV77 cm/s MILA Mid MILA Mid PSV 77 cm/s Left MILA Prox MILA Prox PSV89 cm/sATA Prox PSV89 cm/s Left Peroneal Mid Peroneal Mid PS95 cm/s Peroneal Left Peroneal M60 degLeft Peroneal P60 deg Left Peroneal Prox Peroneal Prox P87 cm/s Right PRODUCT DEVELOPMENT CHEMIST Dist PRODUCT DEVELOPMENT CHEMIST Dist PSV 126 cm/s Left PRODUCT DEVELOPMENT CHEMIST Dist PRODUCT DEVELOPMENT CHEMIST Dist PSV 139 cm/s Right Profunda Profunda PSV89 cm/s Left Profunda Profunda PSV90 cm/s Left SFA Prox SFA Prox PSV 214 cm/s Right SFA Mid SFA Mid SFJ052 cm/s Right SFA Dist SFA Dist PSV 120 cm/s Left Pop Prox Pop Prox PSV 100 cm/s Right INSPECTOR CANNED FOOD RECONDITIONING Mid INSPECTOR CANNED FOOD RECONDITIONING Mid XXT679 cm/s Left INSPECTOR CANNED FOOD RECONDITIONING Mid INSPECTOR CANNED FOOD RECONDITIONING Mid PSV 99 cm/s Right INSPECTOR CANNED FOOD RECONDITIONING Distal INSPECTOR CANNED FOOD RECONDITIONING Distal PSV93 cm/s Left INSPECTOR CANNED FOOD RECONDITIONING Distal INSPECTOR CANNED FOOD RECONDITIONING Distal PSV77 cm/s Right Peroneal Prox Peroneal [...] Radiology Results In - 01/20/2018 11:27 PM [facility]OKER Vascular Ultrasound Laboratory Lower Extremity Arterial Duplex Report [address] [place] [address] Pat.Name: TACHO CASTILLO Pat.ID: [id number] .Date: 01/20/2018 Refer.MD: PHYSICIAN, EMERGENCY, MD Exam Time: 5:06:00 PM Study Type:LE Arterial Height: 81in Age: 103/05/1945,72Y Sex: MALE Sonogrphr: Tim Walsh RDMS, SHAILAT Pat. Stat.:Outpatient Room: ER 8 Tape Vol: [facility] - 4: [address] Echo Event ID:[id number] Order ID: [id number] Reason for Study:Poor pulsation with edematous legs [...] Anterior Tibial Triphasic Triphasic MEASUREMENTS: DOPPLER Right PRODUCT DEVELOPMENT CHEMIST prox PRODUCT DEVELOPMENT CHEMIST prox PSV 126 cm/s PRODUCT DEVELOPMENT CHEMIST Right PRODUCT DEVELOPMENT CHEMIST Prox 60 deg Left PRODUCT DEVELOPMENT CHEMIST Prox D 60 deg Right SFA Prox SFA Prox PSV 107 cm/s SFA Right SFA Prox 60 deg Left SFA Mid Do 60 deg Left SFA Dist D 60 deg Right Pop Dist Pop Dist PSV 128 cm/s Popliteal Right Popliteal 60 deg Left Popliteal 60 deg Right Popliteal 60 deg Right Pop Prox Pop Prox PSV 153 cm/s Right INSPECTOR CANNED FOOD RECONDITIONING Dist INSPECTOR CANNED FOOD RECONDITIONING Dist PSV 93 cm/s Tibial Post Right Tibial Po 60 deg Left Tibial Pos 60 deg Left Tibial Pos 60 deg Right INSPECTOR CANNED [employer]OD RECONDITIONING Prox INSPECTOR CANNED FOOD RECONDITIONING Prox PSV 84.9 cm/s INSPECTOR CANNED FOOD RECONDITIONING Prox PSV 108 cm/s Tibial Art Right Tibial Ar 0 deg Left Tibial Art 60 deg Left Tibial Art 60 deg Left PRODUCT DEVELOPMENT CHEMIST prox PRODUCT DEVELOPMENT CHEMIST prox PSV 139 cm/s SFA Dist SFA Dist PSV 97 cm/s Left SFA Mid SFA Mid PSV 123 cm/s Left Pop Dist Pop Dist PSV 103 cm/s Left INSPECTOR CANNED [employer]OD RECONDITIONING Dist INSPECTOR CANNED FOOD RECONDITIONING Dist PSV 77.1 cm/s INSPECTOR CANNED FOOD RECONDITIONING Prox INSPECTOR CANNED FOOD RECONDITIONING Prox PSV 77 cm/s MILA Mid MILA Mid PSV 77 cm/s Left MILA Prox MILA Prox PSV 89 cm/s MILA Prox PSV 89 cm/s Left Peroneal Mid Peroneal Mid PS 95 cm/s Peroneal Left Peroneal M 60 deg Left Peroneal P 60 deg Left Peroneal Prox Peroneal Prox P 87 cm/s Right PRODUCT DEVELOPMENT CHEMIST Dist PRODUCT DEVELOPMENT CHEMIST Dist PSV 126 cm/s Left PRODUCT DEVELOPMENT CHEMIST Dist PRODUCT DEVELOPMENT CHEMIST Dist PSV 139 cm/s Right Profunda Profunda PSV 89 cm/s Left Profunda Profunda PSV 90 cm/s Left SFA Prox SFA Prox PSV 214 cm/s Right SFA Mid SFA Mid PSV 128 cm/s Right SFA Dist SFA Dist PSV 120 cm/s Left Pop Prox Pop Prox PSV 100 cm/s Right INSPECTOR CANNED FOOD RECONDITIONING Mid INSPECTOR CANNED FOOD RECONDITIONING Mid PSV 114 cm/s Left INSPECTOR CANNED FOOD RECONDITIONING Mid INSPECTOR CANNED FOOD RECONDITIONING Mid PSV 99 cm/s Right INSPECTOR CANNED FOOD RECONDITIONING Distal INSPECTOR CANNED FOOD RECONDITIONING Distal PSV 93 cm/s Left INSPECTOR CANNED FOOD RECONDITIONING Distal INSPECTOR CANNED FOOD RECONDITIONING Distal PSV 77 cm/s Right Peroneal Prox [...] RPVI Performing Organization Address City/State/Zipcode Phone Number [facility] [address] [place] [address] PV duplex venous lower extremity (01/20/2018 5:20 PM INVESTMENT BROKER) Narrative Performed At [facility] Vascular Ultrasound Laboratory Lower Extremity Venous Report [id number] [address] Pat.Name:TACHO CASTILLO RPat.ID:[id number] .Date: 01/20/2018Refer.MD:PHYSICIAN, EMERGENCY, Exam Time: 4:37:00 PMStudy Type:LE Venous Height:81inDOBAge: 1945,72Y Sex: MALESonogrphr: Tim Walsh, RDMS, RVT Pat. Stat.:OutpatientRoom:ER 8 TapeVol: , CPT - 4: 96432 Echo Event ID:[id number] Order ID:[id number] Reason for Study:Bilateral lower extremity edema. Procedures:Colorflow, [...] Radiology Results In - 01/20/2018 11:18 PM [facility] Vascular Ultrasound Laboratory Lower Extremity Venous Report [id number] [address] Pat.Name: TACHO CASTILLO Pat.ID: [id number] .Date: 01/20/2018 Refer.MD: PHYSICIAN, EMERGENCY, MD Exam Time: 4:37:00 PM Study Type:LE Venous Height: 81in Age: 103/05/1945,72Y Sex: MALE Sonogrphr: Tim Walsh RDMS, RVT Pat. Stat.:Outpatient Room: ER 8 Tape Vol: , CPT - 4: 59558 Echo Event ID:[id number] Order ID: [id number] Reason for Study:Bilateral lower extremity edema. Procedures:Colorflow, [...] RPVI Performing Organization Address City/State/Zipcode Phone Number [facility] [address] [place] [address] after 04/07/2017 Insurance Payer Benefit Plan / Group Subscriber ID Type Phone Address MEDICARE MEDICARE PART A AND B xxxxxxxxxxx Medicare [place], [place] AAR AARP SUPPLEMENT xxxxxxxxxx Commercial ([place]) [address] [address] Advance Directives Patient has advance care planning documents on file. For more information, please contact:[place] [address] [place] [address]
--- OUTSIDE RECORDS SUMMARY | 2018-04-08 15:38 | XMS REPORT ---
:1945 [facility] Address [address] [place] [address] Care Team Providers Name Role Phone Unavailable [...]
[2018-04-08] MEDS ORDERED: ONDANSETRON 4 MG/2 ML VIAL IV PRN (16:04)
[2018-04-08] MEDS ORDERED: MORPHINE 2 MG/ML SYR IV PRN (16:05)
[2018-04-08] MEDS ORDERED: D50W 25 GM/50 ML SYRINGE IV PRN (16:06)
[2018-04-08] MEDS ORDERED: GLUCAGON 1 MG/VIAL IM PRN (16:06)
[2018-04-08] MEDS ORDERED: ZOLPIDEM TARTRATE 5 MG TABLET PO PRN (16:11)
[2018-04-08 16:19] VITALS: BMI 18.3
[2018-04-08] MEDS ORDERED: ONDANSETRON 4 MG/2 ML VIAL IV ONE (17:00)
[2018-04-08] MEDS: NA CHLORIDE 0.9% 1,000 ML IV SCH ×3 (17:01→22:22)
[2018-04-08] MEDS: INSULIN -REGULAR HUMAN 50 UNIT/0.5 ML ML SQ SCH ×2 (17:12→21:00)
[2018-04-08 18:29] LABS: Urine Appearance CLEAR; Urine Bilirubin NEGATIVE (NEG); Urine Blood NEGATIVE (NEG); Urine Color YELLOW; Urine Glucose 3+ (NEG); Urine Protein 2+ (NEG); Urine Specific Gravity >=1.030 (1.005-1.030); Urine pH 6.5 (5.0-7.0)
[2018-04-08 18:44] LABS: Urine Microscopic Reflex ORDER UMIC
[2018-04-08 18:46] LABS: Urine Bacteria <20 /HPF (NONE SEEN); Urine Culture Reflex Order NOT NEEDED; Urine RBC NONE SEEN /HPF (NONE SEEN)
[2018-04-08] MEDS ORDERED: METOPROLOL XL 25 MG TAB PO ONE (22:00)
[2018-04-08] MEDS ORDERED: NIFEDIPINE XL 60 MG TABLET PO ONE (22:00)
[2018-04-08] MEDS: HYDROCODONE/APAP 10/325 TAB PO PRN (22:16)
[2018-04-08] MEDS: ONDANSETRON 4 MG/2 ML VIAL IV SCH (22:18)
[2018-04-09] MEDS: ONDANSETRON 4 MG/2 ML VIAL IV SCH ×3 (03:11→13:09)
[2018-04-09] MEDS: NA CHLORIDE 0.9% 1,000 ML IV SCH ×4 (05:18→13:08)
[2018-04-09] MEDS: HYDROCODONE/APAP 10/325 TAB PO PRN ×2 (05:30→13:08)
[2018-04-09 06:58] LABS: Absolute Lymphocytes (CBC) 0.8 K/uL (0.7-4.9); Absolute Monocytes 0.5 K/uL (0.1-1.3); Basophils % 0.9 % (0-1.3); Eosinophils % 1.1 % (0-4.4); Hematocrit 39.3 % (39.6-49.0); Lymphocytes % 12.7 % (15.3-44.8); Monocytes % 7.1 % (3.3-12.3); RBC Red Blood Cell Count 4.68 M/uL (4.33-5.43)
--- NOTE | 2018-04-09 06:59 | EKG ---
Test Date: 2018-03-08 Test Time: 17:02:43 Care Giver: NIESHA MEASUREMENT RESULTS: Intervals: Rate: 103 VT: QRSD: 148 QT: 402 QTc: 526 [place]: P: VT: QRS: -51 T: 100 INTERPRETIVE STATEMENTS: Sinus rhythm with frequent premature atrial complexes Right bundle branch block Left axis Abnormal ECG Compared to ECG 02/08/2018 14:15:35 no significant change from previous ECG Electronically Signed On 04-09-18 06:53:23 ELECTRONIC PARTS DESIGNER by Mor Perdue
[2018-04-09 07:13] LABS: BUN Blood Urea Nitrogen 11 mg/dL (7-18); Bicarbonate 25 mmol/L (21-32); Glucose Level 183 mg/dL (74-106); Potassium 3.2 mmol/L (3.5-5.1); Sodium Level 135 mmol/L (136-145)
[2018-04-09] MEDS: INSULIN -REGULAR HUMAN 50 UNIT/0.5 ML ML SQ SCH ×4 (08:26→22:09)
[2018-04-09] MEDS: METOPROLOL TAR 50 MG TAB PO SCH (08:28)
[2018-04-09] MEDS: SODIUM CHLORIDE 0.9% 10ML INJ IV SCH (08:28)
[2018-04-09] MEDS: PANTOPRAZOLE 40 MG INJ IV SCH (08:28)
[2018-04-09] MEDS: POTASSIUM CL SA 10 MEQ TAB PO ONE ×2 (13:27→17:43)
[2018-04-09] MEDS: POTASSIUM CL 40 MEQ in NA CHLORIDE 0.9% 500 ML IV ONE ×2 (15:30→16:23)
--- NOTE | 2018-04-09 15:54 | RAD REPORT ---
EXAM DESCRIPTION: RAD - Lumbar Spine 3 Views - 04/09/2018 3:37 pm CLINICAL HISTORY: Back pain FINDINGS: Postsurgical changes involve the lumbar spine. The L3-4 disc is obliterated. Mild posterior subluxation of L2 on L3 is present. Mild to moderate pos terior subluxation of L3 on L4 is seen. Cortical irregularity involves the inferior vertebral endplat e of L3 and superior vertebral endplate of L4. All of this is compatible with discitis and osteomyeli tis as a result of the February 2018 infection. No obvious soft tissue mass is seen posteriorly involving the lower lumbar spine but can be missed wi th x-ray. If clinically indicated further evaluation with ultrasound could be obtained
[2018-04-09] MEDS: LORAZEPAM 1 MG TABLET PO PRN ×2 (17:34→22:10)
[2018-04-09] MEDS ORDERED: METOPROLOL XL 25 MG TAB PO ONE (21:06)
[2018-04-09] MEDS ORDERED: NIFEDIPINE XL 60 MG TABLET PO ONE (21:07)
[2018-04-09] MEDS ORDERED: cloNIDine HCl 0.1 MG TAB PO PRN (21:36)
[2018-04-09] MEDS ORDERED: NA CHLORIDE 0.9% 1,000 ML IV SCH (22:00)
[2018-04-09] MEDS: ENSURE CLEAR 200 ML CAN PO SCH (22:10)
[2018-04-10 06:35] LABS: BUN Blood Urea Nitrogen 8 mg/dL (7-18); Bicarbonate 25 mmol/L (21-32); Glucose Level 113 mg/dL (74-106); Potassium 3.2 mmol/L (3.5-5.1); Sodium Level 134 mmol/L (136-145)
[2018-04-10] MEDS: INSULIN -REGULAR HUMAN 50 UNIT/0.5 ML ML SQ SCH ×4 (07:30→21:41)
[2018-04-10] MEDS ORDERED: POTASSIUM CL SA 10 MEQ TAB PO ONE (09:00)
[2018-04-10] MEDS: PANTOPRAZOLE 40 MG INJ IV SCH (09:38)
[2018-04-10] MEDS: NIFEDIPINE XL 60 MG TABLET PO SCH (09:39)
[2018-04-10] MEDS: METOPROLOL TAR 50 MG TAB PO SCH (09:39)
[2018-04-10] MEDS: ENSURE CLEAR 200 ML CAN PO SCH ×2 (09:40→20:31)
[2018-04-10] MEDS: SODIUM CHLORIDE 0.9% 10ML INJ IV SCH (09:40)
[2018-04-10] MEDS: HYDROCODONE/APAP 10/325 TAB PO PRN ×2 (10:55→16:47)
[2018-04-10] MEDS: DIAZEPAM 5 MG TABLET PO PRN ×2 (11:45→16:47)
[2018-04-10] MEDS: ENOXAPARIN 30 MG/0.3 ML SQ SCH (16:47)
[2018-04-10] MEDS: ONDANSETRON 4 MG/2 ML VIAL IV SCH ×2 (20:24→23:30)
[2018-04-10] MEDS: TEMAZEPAM 15 MG CAP PO PRN (23:29)
[2018-04-11] MEDS: HYDROCODONE/APAP 10/325 TAB PO PRN ×3 (02:58→20:09)
[2018-04-11] MEDS: ONDANSETRON 4 MG/2 ML VIAL IV SCH ×4 (05:19→23:27)
[2018-04-11 07:00] LABS: ALT/SGPT 31 U/L (12-78); AST/SGOT 36 U/L (15-37); Albumin 2.8 g/dL (3.4-5.0); Alkaline Phosphatase 246 U/L (45-117); Amylase Level 13 U/L (25-115); BUN Blood Urea Nitrogen 13 mg/dL (7-18); Bicarbonate 24 mmol/L (21-32); Bilirubin Direct 0.2 mg/dL (0-0.2); Bilirubin Total 0.5 mg/dL (0.2-1.0); Glucose Level 199 mg/dL (74-106); Potassium 3.5 mmol/L (3.5-5.1); Protein, Total 6.3 g/dL (6.4-8.2); Sodium Level 133 mmol/L (136-145)
[2018-04-11] MEDS: DIAZEPAM 5 MG TABLET PO PRN ×3 (07:50→21:54)
[2018-04-11] MEDS: PANTOPRAZOLE 40 MG INJ IV SCH (07:50)
[2018-04-11] MEDS: NIFEDIPINE XL 60 MG TABLET PO SCH (07:50)
[2018-04-11] MEDS: METOPROLOL TAR 50 MG TAB PO SCH (07:50)
[2018-04-11] MEDS: INSULIN -REGULAR HUMAN 50 UNIT/0.5 ML ML SQ SCH ×4 (07:51→20:18)
[2018-04-11] MEDS: SODIUM CHLORIDE 0.9% 10ML INJ IV SCH (07:56)
[2018-04-11] MEDS: ENSURE CLEAR 200 ML CAN PO SCH (07:56)
--- NOTE | 2018-04-11 10:44 | PN ---
Date of Progress Note: 04/10/2018 The patient's appetite has improved somewhat. His intake has improved somewhat, however, his pain an d difficulty still persist. The x-rays suggested the need for an MRI to compare with the prior one a nd suggest strongly an osteo, however, he could not tolerate moving to the stretcher. I will discuss another procedure with x-ray department in the morning. The other question is for pain control and I will discuss this matter with Pain Management and possibility of a pump as the patient has obviousl y significant back problems with his carrying of a significant pain scenario. HR/MODL Voice ID: [id number] Report ID: [id number]
[2018-04-11] MEDS: VANCOMYCIN 750 MG in NA CHLORIDE 0.9% 150 ML IVPB SCH ×2 (13:11→23:26)
[2018-04-11] MEDS: CEFEPIME/SWI 1gm 1 GM/10 ML SYR IV SCH ×2 (13:12→20:11)
--- NOTE | 2018-04-11 17:05 | CON ---
History Of Present Illness: This is a known patient to me from prior admission. The patient is here with osteomyelitis of lumbar spine. He has been seen by neurosurgical team in [place], noted to hav e L3-L4 disk is obliterated, mild posterior subluxation L2 on L3 is present, hntk-ag-rllqgjty posteri or subluxation of L3 on L4 is seen, cortical irregularities involving the inferior vertebral endplate of L3 and superior vertebral endplate of L4. All of this is compatible with diskitis and osteomyeli tis as a result of February 2018 infection. No obvious soft tissue mass is seen posteriorly involvin g the lower lumbar spine but can be missed with the x-ray. If clinical indicated, further evaluation with ultrasound could be obtained. The patient complains of back pain at this time. Denies any oth er problems. Lying on his right side makes him feel the most comfortable. Currently getting IV anti biotic and pain medication including hydrocodone, [place] 10/325, clonidine, diazepam, Lovenox, glucago n, Novolin, Lopressor, Procardia, Zofran, Protonix, Restoril. Past Medical History: Diabetes, hypertension, weight loss, coronary artery disease, CKD, arthritis, laminectomy. Family History: Heart disease. Social History: Nonsmoker. Alcohol use positive. Family History: Noncontributory other than heart disease. Review of Systems: A 10-point review was performed. Physical Examination: General: This is a 73-year-old male, lying in bed, in mild distress due to back pain. HEENT: Unremarkable. Neck: Supple. Lungs: With some crackles. Heart: S1, S2. Regular. Abdomen: Soft, bowel sounds present. Extremities: No edema or muscle wasting noted. Back tenderness also noted in the lumbar area. Laboratory Data: WBC 6.4, hemoglobin 13.4, platelets 192. Chemistry shows sodium 133, potassium 3.5 , chloride 101, bicarb 24, BUN 13, creatinine 0.75, glucose is 199. Assessment And Plan: Osteomyelitis of lumbar spine. We will recommend the patient to be started on cefepime and vancomycin for a total of 6 weeks. Consider having re-evaluation by neurosurgical team. Protein-calorie malnourishment. We will recommend dietary consult. Continue antibiotic and suppor tive care. Thank you Dr. Martin for consult. NF/MODL Voice ID: [id number] Report ID: [id number]
[2018-04-11] MEDS: ENOXAPARIN 30 MG/0.3 ML SQ SCH (17:13)
[2018-04-11] MEDS: GLUCERNA SHAKE 237 ML CAN PO SCH (20:18)
[2018-04-11] MEDS ORDERED: CEFEPIME 1 GM/VIAL IV SCH (21:00)
--- NOTE | 2018-04-11 23:12 | HP ---
Date of Admission: 04/10/2018 Entrance Complaint: Vomiting and anorexia. History Of Present Illness: The patient has the above-outlined symptoms for a couple of days prior, presenting to the office; however, his history, which is extremely complex, dates back much longer th this I think is appropriate for his present symptoms. Starting in February when he had back surge ry for a herniated disk, subsequently he developed some epidural abscesses, which required another pr ocedure and extensive hospitalization including rehab both [place] and here. He also developed signi ficant pain requirements and one episode required Narcan. He was subsequently sent to a assisted , at which time, he was continued on his pain pills and then for some reason, he went home about a we ek ago also on his pain pills, which apparently has not controlled his pain according to him and his configuration analyst. During this time, he has continued to lose weight, become increasingly anorectic, and the n started vomiting and was obviously dehydrated, and he was admitted for, what I thought would be, IV fluids for treatment of his gastritis. The patient has also a long history of IDDM and variable con trol. Past History: As above. For further details, see his hospitalization in rehab and in the hospital. Social History: Alcohol has been involved to some extent, not as of late time. No smoking as obviou sly. Family History: Noncontributory. Physical Examination: General: Patient is an elderly, rather puny-looking male, somewhat disoriented, but in no acute dist ress with stable vital signs. Head and Neck: Normocephalic. Pupils equal and react to light and accommodation. Fundi negative. Trachea midline. Thyroid not palpable. ENT: Negative. Chest: Clear to P and A. Cardiovascular: PMI in midclavicular line. Heart sounds normal. Peripheral pulses present and equa l bilaterally. Abdomen: Minimal tenderness to midepigastric area. No guarding, rebound, tenderness, or rigidity. Bowel sounds hyperactive. Extremities: Marked dehydration. Good tone and movement in upper extremities. Some tone and moveme nt decreased in the lower extremities bilateral. Minimal movement in the lumbosacral joint in all di rections and prominent area in the LS spine, possible calcium deposits and/or anatomical variant. Rectal: Deferred. Impression: Acute gastritis, dehydration, intractable pain secondary to spinal condition, and insuli n-dependent diabetes mellitus, poor control. Plan: Patient will be admitted and placed on IV fluids. Control his blood sugars and his blood chem istries. /JIE Voice ID: [id number]
[2018-04-11] MEDS: TEMAZEPAM 15 MG CAP PO PRN (23:23)
[2018-04-12] MEDS: HYDROCODONE/APAP 10/325 TAB PO PRN ×3 (02:53→17:54)
[2018-04-12] MEDS: ONDANSETRON 4 MG/2 ML VIAL IV SCH ×4 (05:38→22:59)
[2018-04-12] MEDS: DIAZEPAM 5 MG TABLET PO PRN ×3 (05:39→20:28)
[2018-04-12] MEDS ORDERED: SODIUM CHLORIDE 0.9% 10ML INJ IV PRN ×2 (07:00)
[2018-04-12] MEDS ORDERED: LIDOCAINE 1% MPF 5 ML VIAL IM PRN (07:00)
[2018-04-12 07:02] LABS: BUN Blood Urea Nitrogen 11 mg/dL (7-18); Bicarbonate 26 mmol/L (21-32); Glucose Level 177 mg/dL (74-106); Potassium 3.2 mmol/L (3.5-5.1); Sodium Level 135 mmol/L (136-145)
[2018-04-12] MEDS: INSULIN -REGULAR HUMAN 50 UNIT/0.5 ML ML SQ SCH ×4 (07:30→20:28)
[2018-04-12] MEDS: GLUCERNA SHAKE 237 ML CAN PO SCH ×2 (09:00→20:28)
[2018-04-12] MEDS ORDERED: POTASSIUM CL SA 10 MEQ TAB PO ONE ×2 (09:00→16:36)
[2018-04-12] MEDS: SODIUM CHLORIDE 0.9% 10ML INJ IV SCH ×3 (09:00→20:29)
[2018-04-12] MEDS: METOPROLOL TAR 50 MG TAB PO SCH (09:33)
[2018-04-12] MEDS: PANTOPRAZOLE 40 MG INJ IV SCH (09:33)
[2018-04-12] MEDS: NIFEDIPINE XL 60 MG TABLET PO SCH (09:42)
[2018-04-12] MEDS: CEFEPIME/SWI 1gm 1 GM/10 ML SYR IV SCH ×2 (09:42→20:28)
[2018-04-12] MEDS: VANCOMYCIN 750 MG in NA CHLORIDE 0.9% 150 ML IVPB SCH (11:53)
[2018-04-12] MEDS: ENOXAPARIN 30 MG/0.3 ML SQ SCH (16:25)
[2018-04-12] MEDS: TAMSULOSIN 0.4 MG SR CAP PO SCH (16:26)
[2018-04-12 16:42] LABS: Urine Appearance CLEAR; Urine Bilirubin NEGATIVE (NEG); Urine Blood NEGATIVE (NEG); Urine Color YELLOW; Urine Glucose 3+ (NEG); Urine Protein TRACE (NEG); Urine Specific Gravity 1.015 (1.005-1.030); Urine Urobilinogen 0.2 mg/dL (0.2-1.0)
[2018-04-12 16:55] LABS: Urine Yeast PRESENT (NONE SEEN)
[2018-04-12 16:56] LABS: Urine Bacteria <20 /HPF (NONE SEEN); Urine RBC NONE SEEN /HPF (NONE SEEN)
[2018-04-12 16:57] LABS: Urine Culture Reflex Order REFLEXED
--- NOTE | 2018-04-12 20:09 | PN ---
Date of Progress Note: 04/12/2018 The patient's appetite has improved considerably. He is eating much better. He is having some diffi culty with urination and has burning on starting his stream. Flomax will therefore be added to the r egimen. He will continue on his antibiotics. Disposition will wait until I speak to his neurosurgeo n on Saturday. HR/MODL Voice ID: [id number] Report ID: [id number]
[2018-04-12] MEDS: TEMAZEPAM 15 MG CAP PO PRN (22:59)
[2018-04-13] MEDS: VANCOMYCIN 750 MG in NA CHLORIDE 0.9% 150 ML IVPB SCH ×2
[2018-04-13 00:29] VITALS: O2SAT 97
[2018-04-13] MEDS: HYDROCODONE/APAP 10/325 TAB PO PRN ×3 (01:16→17:06)
[2018-04-13] MEDS: DIAZEPAM 5 MG TABLET PO PRN ×3 (05:03→21:10)
[2018-04-13] MEDS: ONDANSETRON 4 MG/2 ML VIAL IV SCH ×3 (05:03→16:09)
[2018-04-13 06:06] LABS: BUN Blood Urea Nitrogen 12 mg/dL (7-18); Bicarbonate 25 mmol/L (21-32); Glucose Level 127 mg/dL (74-106); Sodium Level 136 mmol/L (136-145)
[2018-04-13] MEDS: GLUCERNA SHAKE 237 ML CAN PO SCH ×2 (09:00→21:10)
[2018-04-13] MEDS: SODIUM CHLORIDE 0.9% 10ML INJ IV SCH ×3 (09:00→21:13)
[2018-04-13] MEDS: INSULIN -REGULAR HUMAN 50 UNIT/0.5 ML ML SQ SCH ×4 (09:00→21:00)
[2018-04-13] MEDS: PANTOPRAZOLE 40 MG INJ IV SCH (09:02)
[2018-04-13] MEDS: TAMSULOSIN 0.4 MG SR CAP PO SCH (09:03)
[2018-04-13] MEDS: NIFEDIPINE XL 60 MG TABLET PO SCH (09:04)
[2018-04-13] MEDS: METOPROLOL TAR 50 MG TAB PO SCH (09:04)
[2018-04-13] MEDS: CEFEPIME/SWI 1gm 1 GM/10 ML SYR IV SCH ×2 (09:05→21:13)
[2018-04-13] MEDS: VANCOMYCIN/NS 1 gm 1 GM/250 ML BAG IV SCH (12:05)
--- NOTE | 2018-04-13 14:10 | RAD REPORT ---
EXAM DESCRIPTION: RAD - Chest Single View - 04/12/2018 2:44 am CLINICAL HISTORY: 73 years Male, PICC Placement COMPARISON: None. FINDINGS: Placement of right upper extremity PICC terminating in the proximal SVC. Evidence of prior median sternotomy. No focal lung consolidation. No pleural effusion. No pneumothorax. Prominence of interstitial venous congestion. Cardiac silhouette is enlarged. No acute osseous abnormality. IMPRESSION: Appropriately placed right upper extremity PICC. Mild interstitial edema and venous congestion. Electronically signed by: Nav Spicer DO 04/12/2018 2:52 AM DJ INSTRUCTOR Due to temporary technical issues with the PACS/Fluency reporting system, reports are being signed by the in house radiologist as a courtesy to ensure prompt reporting. The interpreting radiologist is f ully responsible for the content of the report.
[2018-04-13] MEDS: ENOXAPARIN 30 MG/0.3 ML SQ SCH (16:09)
--- NOTE | 2018-04-13 19:07 | PN ---
The patient basically status quo. Further disposition will be made after I talk to him and talk to h is neurosurgeon with probability of him going to an LTAC for his IV antibiotics for 6 weeks and most likely disposition as well as the therapy that he can do there. HR/MODL Voice ID: [id number] Report ID: [id number]
[2018-04-14] MEDS: ONDANSETRON 4 MG/2 ML VIAL IV SCH ×3 (01:14→17:10)
[2018-04-14] MEDS: VANCOMYCIN/NS 1 gm 1 GM/250 ML BAG IV SCH ×2 (01:14→12:33)
[2018-04-14] MEDS: HYDROCODONE/APAP 10/325 TAB PO PRN ×2 (05:26→17:10)
[2018-04-14] MEDS: PANTOPRAZOLE 40 MG INJ IV SCH (08:40)
[2018-04-14] MEDS: SODIUM CHLORIDE 0.9% 10ML INJ IV SCH ×3 (08:40→21:12)
[2018-04-14] MEDS: GLUCERNA SHAKE 237 ML CAN PO SCH ×2 (08:41→21:25)
[2018-04-14] MEDS: METOPROLOL TAR 50 MG TAB PO SCH (08:41)
[2018-04-14] MEDS: NIFEDIPINE XL 60 MG TABLET PO SCH (08:41)
[2018-04-14] MEDS: TAMSULOSIN 0.4 MG SR CAP PO SCH (08:41)
[2018-04-14] MEDS: INSULIN -REGULAR HUMAN 50 UNIT/0.5 ML ML SQ SCH ×4 (08:42→21:12)
[2018-04-14] MEDS: CEFEPIME/SWI 1gm 1 GM/10 ML SYR IV SCH ×2 (08:42→21:12)
[2018-04-14] MEDS: DIAZEPAM 5 MG TABLET PO PRN ×2 (12:37→21:12)
[2018-04-14] MEDS: ENOXAPARIN 30 MG/0.3 ML SQ SCH (17:09)
--- NOTE | 2018-04-14 18:41 | PN ---
Date of Progress Note: 04/14/2018 The patient seems slightly more comfortable today as far as rotating in bed. He is also improved sli ghtly with physical therapy. He is continued on IV antibiotics. Awaiting determination for the LTAC . A call has been put into his neurosurgeon as well. HR/MODL Voice ID: [id number] Report ID: [id number]
--- NOTE | 2018-04-14 19:14 | PN ---
Addendum: The dietary assessment has been made and he is felt to be moderately malnourished. Approp riate changes will be made and also it should be noted that the osteomyelitis is felt to be acute and therefore the 6 weeks of antibiotics, parenteral, are indicated. HR/MODL Voice ID: [id number] Report ID: [id number]
[2018-04-15] MEDS: VANCOMYCIN/NS 1 gm 1 GM/250 ML BAG IV SCH ×2 (00:22→12:38)
[2018-04-15] MEDS: ONDANSETRON 4 MG/2 ML VIAL IV SCH ×3 (00:23→17:44)
[2018-04-15] MEDS: TAMSULOSIN 0.4 MG SR CAP PO SCH (08:52)
[2018-04-15] MEDS: METOPROLOL TAR 50 MG TAB PO SCH (08:52)
[2018-04-15] MEDS: NIFEDIPINE XL 60 MG TABLET PO SCH (08:52)
[2018-04-15] MEDS: PANTOPRAZOLE 40 MG INJ IV SCH (08:53)
[2018-04-15] MEDS: GLUCERNA SHAKE 237 ML CAN PO SCH ×2 (08:53→21:00)
[2018-04-15] MEDS: CEFEPIME/SWI 1gm 1 GM/10 ML SYR IV SCH ×2 (08:53→21:31)
[2018-04-15] MEDS: INSULIN -REGULAR HUMAN 50 UNIT/0.5 ML ML SQ SCH ×4 (08:54→21:00)
[2018-04-15] MEDS: SODIUM CHLORIDE 0.9% 10ML INJ IV SCH ×3 (08:54→21:32)
[2018-04-15] MEDS: HYDROCODONE/APAP 10/325 TAB PO PRN ×2 (09:03→17:44)
[2018-04-15] MEDS: DIAZEPAM 5 MG TABLET PO PRN ×2 (12:50→21:31)
[2018-04-15 14:41] LABS: Absolute Lymphocytes (CBC) 0.7 K/uL (0.7-4.9); Absolute Monocytes 0.4 K/uL (0.1-1.3); Absolute Neutrophil 3.7 K/uL (1.8-8.0); Basophils % 0.8 % (0-1.3); Eosinophils % 2.3 % (0-4.4); Hematocrit 33.4 % (39.6-49.0); Lymphocytes % 14.7 % (15.3-44.8); MPV 10.2 fL (7.6-11.3); Monocytes % 7.2 % (3.3-12.3); RBC Red Blood Cell Count 3.84 M/uL (4.33-5.43)
[2018-04-15 14:53] LABS: Potassium 3.8 mmol/L (3.5-5.1)
--- NOTE | 2018-04-15 16:53 | PN ---
Date of Progress Note: 04/14/2018 Basically status quo although his strength has improved slightly. I have discussed his case with his neurosurgeon and agree to the treatment of the osteo, which he states was possibly beginning when he developed epidurals started couple of days ago and will discuss with ID ____ HR/MODL Voice ID: [id number] Report ID: [id number]
[2018-04-15] MEDS: ENOXAPARIN 30 MG/0.3 ML SQ SCH (17:44)
--- NOTE | 2018-04-15 19:48 | PN ---
Subjective: The patient is lying in bed, feels slightly better today. Denies any headache, nausea, vomiting, chest pain, abdominal pain, constipation, or diarrhea. Objective: Vital Signs: Temperature 97.6, pulse 73, respiration 18. Blood pressure 120/60. Lungs: Basal crackles. Heart S1, S2, regular. Abdomen: Soft. Bowel sounds present. Extremity: No edema. Laboratory Data: Shows WBC 6.4 from 04/09. No new labs available. Hemoglobin 13.4, platelets 192. Chemistry is from 04/13. Sodium 136, potassium 4, chloride 102, bicarb 25, BUN 12, creatinine 0.65, glucose 127. Assessment And Plan: Osteomyelitis of lumbar spine. Continue antibiotic, Vancomycin and cefepime. Repeat CBC and BMP. We will follow the patient closely. Pending transfer to long-term acute care at [place]. We will follow the patient closely. NF/MODL Voice ID: [id number] Report ID: [id number]
[2018-04-16 00:43] VITALS: BP 140/62; TEMP 97.9
--- NOTE | 2018-04-16 00:46 | PN ---
Date of Progress Note: 04/15/2018 The patient seems somewhat stronger again today. Physical Therapy has helped, and he has been accept ed for transfer to the LTAC. This will be accomplished. The patient is under care of Dr. Kapoor and has an appointment with the neurosurgeon in 2 weeks. HR/MODL Voice ID: [id number] Report ID: [id number]
== END 2018-04-15 22:45 | DRG 540 ==
LOC: 2ND 15:32 → OBSVTOIN 04-10 17:56
PROVIDERS: ADMIT Family Medicine; ATTEND Family Medicine
PROC: 02HV33Z Insertion of Infusion Device into Superior Vena Cava, Percutaneous Approach (ICD-10-PCS; principal; 2018-04-11)
PROC: B548ZZA Ultrasonography of Superior Vena Cava, Guidance (ICD-10-PCS; 2018-04-11)
DX: M46.26 Osteomyelitis of vertebra, lumbar region (principal); E44.0 Moderate protein-calorie malnutrition; E86.0 Dehydration; I25.10 Atherosclerotic heart disease of native coronary artery without angina pectoris; K29.70 Gastritis, unspecified, without bleeding; R63.0 Anorexia; E11.65 Type 2 diabetes mellitus with hyperglycemia; Z79.4 Long term (current) use of insulin; M19.90 Unspecified osteoarthritis, unspecified site; G89.29 Other chronic pain; M54.5 Low back pain; I12.9 Hypertensive chronic kidney disease with stage 1 through stage 4 chronic kidney disease, or unspecified chronic kidney disease; E11.22 Type 2 diabetes mellitus with diabetic chronic kidney disease; N18.9 Chronic kidney disease, unspecified
CPT/HCPCS: 36415; 71045; 72100; 74019; 80048; 80076; 80202; 81001; 81003; 81015; 82150; 82962; 84132; 84134; 85025; 85652; 86038; 86140; 87086; 87088; 93005; 97110; 97163; 97530; C9113; G0378; G0379; J0692; J1650; J2270; J2405; J3370; J7030

== ENCOUNTER 2018-05-19 09:29 | Inpatient (IN) | payer OTHER, MEDICARE ==
--- OUTSIDE RECORDS SUMMARY | 2018-05-19 09:32 | XMS REPORT ---
:1945 [facility] Address [address] [place] [address] Care Team Providers Name Role Phone Unavailable [...]
[2018-05-19] MEDS ORDERED: NA CHLORIDE 0.9% 1,000 ML ONE (10:01)
[2018-05-19 10:12] LABS: Absolute Lymphocytes (CBC) 0.8 K/uL (0.7-4.9); Absolute Monocytes 0.4 K/uL (0.1-1.3); Absolute Neutrophil 4.3 K/uL (1.8-8.0); Eosinophils % 2.2 % (0-4.4); Hematocrit 36.6 % (39.6-49.0); Lymphocytes % 14.1 % (15.3-44.8); MPV 8.8 fL (7.6-11.3); Monocytes % 7.7 % (3.3-12.3); RBC Red Blood Cell Count 4.37 M/uL (4.33-5.43)
[2018-05-19 10:13] LABS: Protime INR 1.31
[2018-05-19 10:32] LABS: Bilirubin Direct 0.3 mg/dL (0-0.2); Bilirubin Total 0.6 mg/dL (0.2-1.0); Protein, Total 7.5 g/dL (6.4-8.2); Troponin (Emerg Dept Use Only) 0.06 ng/mL (0.0-0.045)
[2018-05-19 10:45] LABS: Magnesium 1.2 mg/dL (1.8-2.4)
--- NOTE | 2018-05-19 10:46 | RAD REPORT ---
EXAM DESCRIPTION: RAD - Chest Single View - 05/19/2018 10:25 am CLINICAL HISTORY: COUGH Chest pain. COMPARISON: Chest Single View dated 04/12/2018; Chest Single View dated 02/09/2018; Chest Single View d ated 02/08/2018; Chest Single View dated 02/07/2018 FINDINGS: Portable technique limits examination quality. The lungs are grossly clear. The heart is normal in size. Sternotomy wires present.Right-sided PICC l ine has tip in the SVC. Small hiatal hernia. IMPRESSION: No acute intrathoracic process suspected.
[2018-05-19] MEDS ORDERED: Magnesium Sulfate 2gm IVPB 2 G/50 ML BAG IV ONE ×2 (11:02→22:47)
[2018-05-19] MEDS ORDERED: ONDANSETRON 4 MG/2 ML VIAL ONE (11:02)
[2018-05-19] MEDS ORDERED: FENTANYL CITR 100 MCG/2 ML ONE ×3 (11:02→13:45)
[2018-05-19] MEDS ORDERED: FAMOTIDINE 20 MG/2 ML VIAL IV ONE (11:02)
--- NOTE | 2018-05-19 12:15 | EKG ---
Test Date: 2018-05-19 Test Time: 10:15:35 Dairy Nutrition Specialist: NIESHA MEASUREMENT RESULTS: Intervals: Rate: 88 MA: 200 QRSD: 152 QT: 416 QTc: 503 [place]: P: MA: 200 QRS: 242 T: 38 INTERPRETIVE STATEMENTS: Sinus rhythm with premature atrial complexes Right bundle branch block Septal infarct, age undetermined Abnormal ECG Compared to ECG 03/08/2018 17:02:43 Myocardial infarct finding now present Electronically Signed On 05-19-18 12:14:28 CDT by Mor Perdue
--- NOTE | 2018-05-19 13:26 | EDPHYS ---
Physician Documentation [facility] Name: Tacho Lundy Age: 73 yrs Sex: Male : 1945 Arrival Date: 05/19/2018 Time: 09:32 Bed 19 Private MD: German Martin ED Physician Herbie Cerda HPI: 05/19 11:24 This 73 yrs old Male presents to ER via Wheelchair with complaints of keila Nausea/Vomiting. 11:24 The patient presents to the emergency department with nausea, vomiting, that is keila intermittent. Onset: The symptoms/episode began/occurred 5 day(s) ago. Possible causes: unknown. The symptoms are aggravated by food , The symptoms are alleviated by nothing. remaining still. Associated signs and symptoms: Pertinent positives: anorexia, nausea, vomiting. Severity of symptoms: At their worst the symptoms were moderate. The patient has not experienced similar symptoms in the past. Historical: - Allergies: 09:40 No Known Allergies; hb - PMHx: 09:40 Chronic pain; Diabetes - NIDDM; Hypertension; hb - Immunization history:: Adult Immunizations up to date. - Social history:: Smoking status: Patient/guardian denies using tobacco. - Ebola Screening: : No symptoms or risks identified at this time. - Family history:: not pertinent. ROS: 11:24 Constitutional: Negative for fever, chills, and weight loss, Eyes: Negative for injury, keila pain, redness, and discharge, ENT: Negative for injury, pain, and discharge, Neck: Negative for injury, pain, and swelling, Cardiovascular: Negative for chest pain, palpitations, and edema, Respiratory: Negative for shortness of breath, cough, wheezing, and pleuritic chest pain, : Negative for injury, bleeding, discharge, and swelling, MS/Extremity: Negative for injury and deformity, Skin: Negative for injury, rash, and discoloration, Neuro: Negative for headache, weakness, numbness, tingling, and seizure, Psych: Negative for depression, anxiety, suicide ideation, homicidal ideation, and hallucinations, Allergy/Immunology: Negative for hives, rash, and allergies, Endocrine: Negative for neck swelling, polydipsia, polyuria, polyphagia, and marked weight changes. 11:24 Abdomen/GI: Positive for nausea, vomiting, anorexia. 11:24 Back: Positive for injury or acute deformity, decreased range of motion, pain at rest, pain with movement, of the lumbar area. Exam: 11:24 Constitutional: This is a well developed, well nourished patient who is awake, alert, keila and in no acute distress. Head/Face: Normocephalic, atraumatic. Eyes: Pupils equal round and reactive to light, extra-ocular motions intact. Lids and lashes normal. Conjunctiva and sclera are non-icteric and not injected. Cornea within normal limits. Periorbital areas with no swelling, redness, or edema. ENT: Nares patent. No nasal discharge, no septal abnormalities noted. Tympanic membranes are normal and external auditory canals are clear. Oropharynx with no redness, swelling, or masses, exudates, or evidence of obstruction, uvula midline. Mucous membranes moist. Neck: Trachea midline, no thyromegaly or masses palpated, and no cervical lymphadenopathy. Supple, full range of motion without nuchal rigidity, or vertebral point tenderness. No Meningismus. Chest/axilla: Normal chest wall appearance and motion. Nontender with no deformity. No lesions are appreciated. Cardiovascular: Regular rate and rhythm with a normal S1 and S2. No gallops, murmurs, or rubs. Normal PMI, no JVD. No pulse deficits. Respiratory: Lungs have equal breath sounds bilaterally, clear to auscultation and percussion. No rales, rhonchi or wheezes noted. No increased work of breathing, no retractions or nasal flaring. Abdomen/GI: Soft, non-tender, with normal bowel sounds. No distension or tympany. No guarding or rebound. No evidence of tenderness throughout. Back: No spinal tenderness. No costovertebral tenderness. Full range of motion. Male : Normal genitalia with no discharge or lesions. Skin: Warm, dry with normal turgor. Normal color with no rashes, no lesions, and no evidence of cellulitis. Neuro: Awake and alert, GCS 15, oriented to person, place, time, and situation. Cranial nerves II-XII grossly intact. Motor strength 5/5 in all extremities. Sensory grossly intact. Cerebellar exam normal. Normal gait. Psych: Awake, alert, with orientation to person, place and time. Behavior, mood, and affect are within normal limits. 11:24 Back: pain, that is moderate, ROM is painful, kyphosis, CVA tenderness, is absent, vertebral tenderness, is appreciated at L1, L2 and L3, muscle spasm, is appreciated in the left low back, left mid back, right mid back and right low back. 11:24 Musculoskeletal/extremity: Extremities: 13:50 Musculoskeletal/extremity: DVT Exam: No signs of deep vein thrombosis. no pain, no keila swelling, no tenderness, negative Homans' sign noted on exam, no appreciated bluish discoloration, no erythema, no increased warmth. Vital Signs: 09:38 BP 187 / 77; Pulse 106; Resp 18; Temp 97.8; Pulse Ox 98% on R/A; Pain 8/10; hb 10:47 BP 174 / 86; Pulse 91; Resp 18; Pulse Ox 100% ; sv 11:30 Pain 7/10; sv 11:45 BP 167 / 84; Pulse 88; Resp 12; Pulse Ox 98% on R/A; sv 12:30 BP 183 / 99; Pulse 90; Resp 12; Pulse Ox 97% ; sv 12:30 Pain 7/10; sv 13:15 BP 151 / 99; Pulse 97; Resp 13; Pulse Ox 100% ; sv 14:07 BP 167 / ???; Pulse 99; Resp 95; Pulse Ox 98% ; sv 14:30 Pain 7/10; sv 14:45 BP 172 / 69; Pulse 90; Resp 15; Pulse Ox 99% ; sv 15:30 BP 179 / 91; Pulse 94; Resp 16; Pulse Ox 98% ; sv 15:30 Pain 4/10; sv MDM: 09:43 Patient medically screened. [facility] 11:27 Data reviewed: vital signs, nurses notes, lab test result(s), EKG, radiologic studies, [facility] CT scan, doppler, MRI, plain films. 05/19 09:46 Order name: Basic Metabolic Panel; Complete Time: 12:29 [facility] 05/19 09:46 Order name: CBC with Diff; Complete Time: 12:29 [facility] 05/19 09:46 Order name: LFT's; Complete Time: 12:29 [facility] 05/19 09:46 Order name: Magnesium; Complete Time: 12:29 [facility] 05/19 09:46 Order name: NT PRO-BNP; Complete Time: 12:29 [facility] 05/19 09:46 Order name: PT-INR; Complete Time: 12:29 [facility] 05/19 09:46 Order name: Troponin (emerg Dept Use Only); Complete Time: 12:29 [facility] 05/19 09:46 Order name: Lipase; Complete Time: 12:29 [facility] 05/19 09:46 Order name: Urine Culture [facility] 05/19 10:47 Order name: Blood Culture Adult (2) [facility] 05/19 10:47 Order name: Sed Rate; Complete Time: 12:29 [facility] 05/19 10:47 Order name: Procalcitonin; Complete Time: 12:29 [facility] 05/19 10:47 Order name: Lactate; Complete Time: 12:29 [facility] 05/19 10:48 Order name: Blood Culture [facility] 05/19 09:46 Order name: XRAY Chest (1 view); Complete Time: 12:29 [facility] 05/19 09:46 Order name: EKG; Complete Time: 09:47 [facility] 05/19 11:31 Order name: Lumbar Spine Wo Con [facility] 05/19 14:02 Order name: Urine Dipstick--Ancillary (enter results) 05/19 15:51 Order name: Urine Dipstick-Ancillary [facility] 05/19 09:46 Order name: Cardiac monitoring; Complete Time: 10:14 [facility] 05/19 09:46 Order name: EKG - Nurse/Tech; Complete Time: 10:14 [facility] 05/19 09:46 Order name: IV Saline Lock; Complete Time: 10:14 [facility] 05/19 09:46 Order name: Labs collected and sent; Complete Time: 10:14 [facility] 05/19 09:46 Order name: O2 Per Protocol; Complete Time: 10:14 [facility] 05/19 09:46 Order name: O2 Sat Monitoring; Complete Time: 10:14 [facility] 05/19 09:46 Order name: Urine Dipstick-Ancillary (obtain specimen); Complete Time: 14:08 [facility] 05/19 13:47 Order name: CONS Physician Consult EDLA Administered Medications: Discontinued: NS 0.9% 1000 ml IV at 125 ml/hr continuous 10:13 Drug: NS 0.9% 1000 ml Route: IV; Rate: 125 ml/hr; Site: right upper arm; sv 10:52 Drug: NS 0.9% 500 ml Route: IV; Rate: bolus; Site: PICC; sv 11:53 Follow up: Response: No adverse reaction; IV Status: Completed infusion; IV Intake: sv 500ml 10:52 Drug: Zofran 4 mg Route: IVP; Site: PICC; sv 11:30 Follow up: Response: No adverse reaction; Nausea is decreased sv 10:54 Drug: fentaNYL (PF) 25 mcg Route: IVP; Site: PICC; sv 11:30 Follow up: Pain 7/10 Adult; Response: No adverse reaction; Pain is decreased sv 10:56 Drug: Pepcid 20 mg Route: IVP; Site: PICC; sv 11:30 Follow up: Response: No adverse reaction sv 10:58 Drug: Magnesium Sulfate 2 grams Route: IVPB; Infused Over: 2 hrs; Site: PICC; sv 11:00 Follow up: Response: No adverse reaction; IV Status: Completed infusion; IV Intake: sv 100ml 12:05 Drug: fentaNYL (PF) 25 mcg Route: IVP; Site: PICC; sv 12:30 Follow up: Pain 7/10 Adult; Response: No adverse reaction sv 13:53 Drug: Potassium Chloride 20 mEq Route: IV; Rate: per protocol; Site: PICC; sv 16:00 Follow up: Response: No adverse reaction; IV Status: Completed infusion; IV Intake: sv 100ml 13:53 Drug: NS 0.9% with KCl 20 mEq/L 1000 ml Route: IV; Rate: 125 ml/hr; Site: PICC; sv 16:30 Follow up: Response: No adverse reaction; IV Status: Infusion continued upon admission sv 13:54 Drug: fentaNYL (PF) 50 mcg Route: IVP; Site: PICC; sv 14:30 Follow up: Pain 7/10 Adult; Response: No adverse reaction sv 15:09 Drug: morphine 4 mg Route: IVP; Site: PICC; sv 15:30 Follow up: Pain 4/10 Adult; Response: No adverse reaction; Marked relief of symptoms sv Disposition: 05/19/18 13:25 Hospitalization ordered by German Martin for Inpatient Admission. Preliminary diagnosis are Vomiting, Type 2 diabetes mellitus, Osteomyelitis of vertebra, lumbar region, Hypokalemia, Hypomagnesemia. - Bed requested for Telemetry/MedSurg (Inpatient). - Status is Inpatient Admission. sv - Condition is Fair. - Problem is new. - Symptoms have improved. UTI on Admission? No Signatures: Dispatcher [employer] EDLA Johanna Hart RN Whitney Aguila RN RN dw Anderson, Corey, MD MD cha Baxter, Heather, RN CINDY Corrections: (The following items were deleted from the chart) 15:18 13:25 Hospitalization Ordered by German Martin MD for Inpatient Admission. Preliminary dw diagnosis is Vomiting; Type 2 diabetes mellitus; Osteomyelitis of vertebra, lumbar region; Hypokalemia; Hypomagnesemia. Bed requested for Telemetry/MedSurg (Inpatient). Status is Inpatient Admission. Condition is Fair. Problem is new. Symptoms have improved. UTI on Admission? No. keila 16:38 15:18 05/19/2018 13:25 Hospitalization Ordered by German Martin MD for Inpatient Admission. Preliminary diagnosis is Vomiting; Type 2 diabetes mellitus; Osteomyelitis of vertebra, lumbar region; Hypokalemia; Hypomagnesemia. Bed requested for Telemetry/MedSurg (Inpatient). Status is Inpatient Admission. Condition is Fair. Problem is new. Symptoms have improved. UTI on Admission? No. dw
--- NOTE | 2018-05-19 13:26 | ER ---
Nurse's Notes [facility] Name: Tacho Lundy Age: 73 yrs Sex: Male : 1945 Arrival Date: 05/19/2018 Time: 09:32 Bed 19 Private MD: German Martin Diagnosis: Vomiting;Type 2 diabetes mellitus;Osteomyelitis of vertebra, lumbar region;Hypokalemia;Hypomagnesemia Presentation: 05/19 09:36 Presenting complaint: N/V x 4 days, not tolerating fluids. Had back sx in February, on hb Daptomycin and levofloxacin for infected surgical site. Transition of care: patient was not received from another setting of care. Onset of symptoms was May 16, 2018. Risk Assessment: Do you want to hurt yourself or someone else? Patient reports no desire to harm self or others. Care prior to arrival: None. 09:36 Method Of Arrival: Wheelchair hb 09:36 Acuity: CORRY 3 hb 09:45 Initial Sepsis Screen: Does the patient meet any 2 criteria? HR > 90 bpm. Yes Does the sv patient have a suspected source of infection? No. Patient's initial sepsis screen is negative. Historical: - Allergies: 09:40 No Known Allergies; hb - PMHx: 09:40 Chronic pain; Diabetes - NIDDM; Hypertension; hb - Immunization history:: Adult Immunizations up to date. - Social history:: Smoking status: Patient/guardian denies using tobacco. - Ebola Screening: : No symptoms or risks identified at this time. - Family history:: not pertinent. Screenin:45 Abuse screen: Denies threats or abuse. Denies injuries from another. Nutritional sv screening: No deficits noted. Tuberculosis screening: No symptoms or risk factors identified. Fall Risk No fall in past 12 months (0 pts). Secondary diagnosis (15 points) IV access (20 points). Ambulatory Aid- None/Bed Rest/Nurse Assist (0 pts). Gait- Normal/Bed Rest/Wheelchair (0 pts) Mental Status- Oriented to own ability (0 pts). Total Horton Fall Scale indicates Low Risk Score (25-44 pts). Fall prevention measures have been instituted. Side Rails Up X 2 Placed close to Nursing Station Frequent Obs/Assesments occuring Family Present and informed to notify staff if they need to leave bedside As available Patient and Family Educated on Fall Prevention Program and strategies. Assessment: 09:45 General: Appears in no apparent distress. uncomfortable, Behavior is calm, cooperative, sv appropriate for age. Pain: Complains of pain in lumbar area Pain does not radiate. Pain currently is 8 out of 10 on a pain scale. Is chronic. Neuro: Level of Consciousness is awake, alert, obeys commands, Oriented to person, place, time, situation, Moves all extremities. Full function Gait is steady. Cardiovascular: Patient's skin is warm and dry. Rhythm is atrial fibrillation. Respiratory: Airway is patent Respiratory effort is even, unlabored, Respiratory pattern is regular, symmetrical. GI: Reports nausea, vomiting. Derm: Skin is normal. 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 10:52 Reassessment: Patient appears in no apparent distress at this time. Patient and/or sv family updated on plan of care and expected duration. Pain level reassessed. Patient is alert, oriented x 3, equal unlabored respirations, skin warm/dry/pink. Patient states symptoms have improved. 12:05 Reassessment: Patient appears in no apparent distress at this time. Patient and/or sv family updated on plan of care and expected duration. Pain level reassessed. Patient is alert, oriented x 3, equal unlabored respirations, skin warm/dry/pink. 13:00 Reassessment: Patient appears in no apparent distress at this time. Patient and/or sv family updated on plan of care and expected duration. Pain level reassessed. Patient is alert, oriented x 3, equal unlabored respirations, skin warm/dry/pink. 13:50 Reassessment: Patient appears in no apparent distress at this time. No changes from sv previously documented assessment. Patient and/or family updated on plan of care and expected duration. Pain level reassessed. Patient is alert, oriented x 3, equal unlabored respirations, skin warm/dry/pink. Patient states symptoms have not improved. Pain medication ordered.. 15:09 Reassessment: Patient appears in no apparent distress at this time. No changes from sv previously documented assessment. Patient and/or family updated on plan of care and expected duration. Pain level reassessed. Patient is alert, oriented x 3, equal unlabored respirations, skin warm/dry/pink. 16:26 Reassessment: Patient appears in no apparent distress at this time. Patient and/or sv family updated on plan of care and expected duration. Pain level reassessed. Patient is alert, oriented x 3, equal unlabored respirations, skin warm/dry/pink. Vital Signs: 09:38 BP 187 / 77; Pulse 106; Resp 18; Temp 97.8; Pulse Ox 98% on R/A; Pain 8/10; hb 10:47 BP 174 / 86; Pulse 91; Resp 18; Pulse Ox 100% ; sv 11:30 Pain 7/10; sv 11:45 BP 167 / 84; Pulse 88; Resp 12; Pulse Ox 98% on R/A; sv 12:30 BP 183 / 99; Pulse 90; Resp 12; Pulse Ox 97% ; sv 12:30 Pain 7/10; sv 13:15 BP 151 / 99; Pulse 97; Resp 13; Pulse Ox 100% ; sv 14:07 BP 167 / ???; Pulse 99; Resp 95; Pulse Ox 98% ; sv 14:30 Pain 7/10; sv 14:45 BP 172 / 69; Pulse 90; Resp 15; Pulse Ox 99% ; sv 15:30 BP 179 / 91; Pulse 94; Resp 16; Pulse Ox 98% ; sv 15:30 Pain 4/10; sv ED Course: 09:32 Patient arrived in ED. mr 09:32 German Martin MD is Private Physician. mr 09:38 Triage completed. hb 09:39 Arm band placed on. hb 09:43 Herbie Cerda MD is Attending Physician. keila 09:45 Patient has correct armband on for positive identification. Placed in gown. Bed in low sv position. Call light in reach. Side rails up X2. Adult w/ patient. awake overnight monitor on. Pulse ox on. NIBP on. Door closed. Warm blanket given. Pillow given. Head of bed elevated. 09:45 Initial lab(s) drawn, by me, sent to lab. Maintain EMS IV. Dressing intact. Good blood sv return noted. Site clean \T\ dry. right upper arm PICC line. 09:45 Patient maintains SpO2 saturation greater than 95% on room air. sv 09:47 Johanna Hart, RN is Primary Nurse. sv 10:26 XRAY Chest (1 view) In Process Unspecified. EDMS 10:37 EKG done, by construction technician. reviewed by Herbie Cerda MD. sm3 10:45 Notified ED physician of a critical lab result(s). Mag=1.2. iw 11:54 Blood Culture Adult (2) Sent. sv 13:24 German Martin MD is Hospitalizing Provider. keila 14:10 Urine Dipstick--Ancillary (enter results) Sent. sv 16:19 No provider procedures requiring assistance completed. Patient admitted, IV remains in sv place. intact. Administered Medications: Discontinued: NS 0.9% 1000 ml IV at 125 ml/hr continuous 10:13 Drug: NS 0.9% 1000 ml Route: IV; Rate: 125 ml/hr; Site: right upper arm; sv 10:52 Drug: NS 0.9% 500 ml Route: IV; Rate: bolus; Site: PICC; sv 11:53 Follow up: Response: No adverse reaction; IV Status: Completed infusion; IV Intake: sv 500ml 10:52 Drug: Zofran 4 mg Route: IVP; Site: PICC; sv 11:30 Follow up: Response: No adverse reaction; Nausea is decreased sv 10:54 Drug: fentaNYL (PF) 25 mcg Route: IVP; Site: PICC; sv 11:30 Follow up: Pain 7/10 Adult; Response: No adverse reaction; Pain is decreased sv 10:56 Drug: Pepcid 20 mg Route: IVP; Site: PICC; sv 11:30 Follow up: Response: No adverse reaction sv 10:58 Drug: Magnesium Sulfate 2 grams Route: IVPB; Infused Over: 2 hrs; Site: PICC; sv 11:00 Follow up: Response: No adverse reaction; IV Status: Completed infusion; IV Intake: sv 100ml 12:05 Drug: fentaNYL (PF) 25 mcg Route: IVP; Site: PICC; sv 12:30 Follow up: Pain 7/10 Adult; Response: No adverse reaction sv 13:53 Drug: Potassium Chloride 20 mEq Route: IV; Rate: per protocol; Site: PICC; sv 16:00 Follow up: Response: No adverse reaction; IV Status: Completed infusion; IV Intake: sv 100ml 13:53 Drug: NS 0.9% with KCl 20 mEq/L 1000 ml Route: IV; Rate: 125 ml/hr; Site: PICC; sv 16:30 Follow up: Response: No adverse reaction; IV Status: Infusion continued upon admission sv 13:54 Drug: fentaNYL (PF) 50 mcg Route: IVP; Site: PICC; sv 14:30 Follow up: Pain 7/10 Adult; Response: No adverse reaction sv 15:09 Drug: morphine 4 mg Route: IVP; Site: PICC; sv 15:30 Follow up: Pain 4/10 Adult; Response: No adverse reaction; Marked relief of symptoms sv Intake: 11:00 IV: 100ml; Total: 100ml. sv 11:53 IV: 500ml; Total: 600ml. sv 16:00 IV: 100ml; Total: 700ml. sv Outcome: 13:25 Decision to Hospitalize by Provider. [facility] 16:19 Admitted to Tele accompanied by tech, via stretcher, room 206, with chart, Report sv called to Nilda WHITE 16:19 Condition: stable 16:19 Instructed on the need for admit. 16:38 Patient left the ED. sv Signatures: Dispatcher [employer] Joahnna Nicolas RN RN sv Anderson, Corey, MD MD cha Rivera, Mary mr Williams, Irene, RN RN Laura Tavares RN RN hb Montes, Shakira 3 Corrections: (The following items were deleted from the chart) 14:07 09:45 Fall Risk No fall in past 12 months (0 pts). Secondary diagnosis (15 points) IV sv access (20 points). Ambulatory Aid- None/Bed Rest/Nurse Assist (0 pts). Gait- Normal/Bed Rest/Wheelchair (0 pts) Mental Status- Oriented to own ability (0 pts). Total Horton Fall Scale indicates Low Risk Score (25-44 pts). sv
[2018-05-19] MEDS ORDERED: KCL 20 MEQ/100 mL IVPB 0 MEQ/0 ML BAG IV ONE (13:45)
[2018-05-19] MEDS ORDERED: NS KCL 20MEQ 1,000 ML IV ONE (13:45)
[2018-05-19] MEDS ORDERED: KCL 20 MEQ/100 mL IVPB 20 MEQ/100 ML BAG IV ONE (13:53)
[2018-05-19] MEDS ORDERED: MORPHINE 4 MG/ML SYR ONE (15:11)
[2018-05-19 15:51] LABS: Urine Blood NEGATIVE (NEG); Urine Glucose TRACE (NEG); Urine Protein 1+ (NEG); Urine pH 7.5 (5.0-7.0)
[2018-05-19] MEDS: NS KCL 20MEQ 20 MEQ/1,000 ML BAG IV SCH ×2 (16:50→23:48)
[2018-05-19] MEDS ORDERED: GLUCAGON 1 MG/VIAL IM PRN (16:50)
[2018-05-19] MEDS: INSULIN -REGULAR HUMAN 50 UNIT/0.5 ML ML SQ SCH ×2 (16:50→21:00)
[2018-05-19] MEDS ORDERED: MORPHINE 4 MG/ML SYR IV PRN (16:50)
[2018-05-19] MEDS ORDERED: D50W 25 GM/50 ML SYRINGE IV PRN (16:50)
[2018-05-19 18:25] VITALS: BMI 21.6
[2018-05-19] MEDS: ENOXAPARIN 40 MG/0.4 ML SQ SCH (18:42)
--- NOTE | 2018-05-19 21:33 | CON ---
Reason For Consult: Abnormal troponin. History Of Present Illness: The patient was not having chest pain. He is here because he has not be en eating for 3 days and his caretakers were concerned he was having serious dehydration. His heart rate has been going up, blood pressure going down. Mr. Castillo has a very remote history of coronary bypass surgery more than 10 years ago. His main clinical problem is that he has infection of the billy jesús and disks of his lumbar spine with both diskitis and osteomyelitis and he has been under the care of Infectious Disease consultants since at least February 2018, probably a little before then. I am not sure we really know which organism is growing, I will leave that up to the physicians caring for him. The patient notes anytime he eats or drinks, he wants to throw up and that has been present fo r about 3 days without any change. He denied chest pain or shortness of breath. He has underlying t ype 2 diabetes, osteomyelitis, coronary heart disease, hypokalemia, hypomagnesemia. Physical Examination: General: He appears to be much older than his stated age. Thin. Extremities: He has mild wasting of muscles in his legs. Lungs: Sound clear. Heart: Reveals a regular rate and rhythm. No murmur or gallop is heard. Diagnostic Studies: His EKG shows sinus rhythm with PACs, right bundle-branch block. Evidence of a septal infarct, age undetermined. His troponin level is 0.06, fairly high enough to be called abnorm al. Impression: This is probably not an acute coronary syndrome. It is more likely an infection and ant ibiotic-related anorexia, dehydration, elevated heart rate. Serial troponins will tell us whether th ere is a rise and fall of any significance and an echocardiogram would be helpful to tell us whether there is any significant myocardial damage. Mr. Castillo is not a good candidate for undergoing revas cularization. A stent would be at high risk of getting infected. We would only do it if we are clearly dealing with unstable angina and at this point, I think that is probably not nel SHEEHAN/JIE Voice ID: [id number] Report ID: [id number]
[2018-05-19] MEDS: MAGNESIUM OXIDE 400 MG TAB PO SCH (22:21)
[2018-05-19] MEDS: FAMOTIDINE 20 MG/2 ML VIAL IV SCH (22:21)
[2018-05-19 22:39] LABS: Magnesium 1.5 mg/dL (1.8-2.4); Potassium 3.3 mmol/L (3.5-5.1); Troponin I 0.06 ng/mL (0.0-0.045)
[2018-05-19] MEDS ORDERED: POTASSIUM CL SA 10 MEQ TAB PO ONE (22:48)
[2018-05-19] MEDS: MORPHINE 4 MG/ML SYR IV PRN (23:43)
[2018-05-20] MEDS: cloNIDine HCl 0.1 MG TAB PO PRN ×2 (05:13→17:29)
[2018-05-20] MEDS: METOPROLOL XL 25 MG TAB PO SCH (05:14)
[2018-05-20 05:20] LABS: Absolute Lymphocytes (CBC) 1.1 K/uL (0.7-4.9); Absolute Monocytes 0.5 K/uL (0.1-1.3); Absolute Neutrophil 3.7 K/uL (1.8-8.0); Basophils % 1.8 % (0-1.3); Eosinophils % 4.3 % (0-4.4); Hematocrit 34.5 % (39.6-49.0); MPV 9.1 fL (7.6-11.3); Monocytes % 8.2 % (3.3-12.3); RBC Red Blood Cell Count 4.09 M/uL (4.33-5.43)
[2018-05-20 05:40] LABS: Magnesium 2.3 mg/dL (1.8-2.4); Potassium 3.8 mmol/L (3.5-5.1)
[2018-05-20] MEDS ORDERED: POTASSIUM CL SA 10 MEQ TAB PO ONE (05:52)
[2018-05-20] MEDS: MORPHINE 4 MG/ML SYR IV PRN ×2 (06:45→17:29)
[2018-05-20] MEDS: INSULIN -REGULAR HUMAN 50 UNIT/0.5 ML ML SQ SCH ×4 (07:30→21:00)
[2018-05-20] MEDS: FAMOTIDINE 20 MG/2 ML VIAL IV SCH ×2 (07:39→22:30)
--- NOTE | 2018-05-20 08:21 | RAD REPORT ---
EXAM DESCRIPTION: RAD - Chest Single View - 05/20/2018 7:13 am CLINICAL HISTORY: Chest Pain Chest pain. COMPARISON: Chest Single View dated 05/19/2018; Chest Single View dated 04/12/2018; Chest Single View d ated 02/09/2018; Chest Single View dated 02/08/2018; Lumbar Spine 3 Views dated 04/09/2018 FINDINGS: Portable technique limits examination quality. The lungs are grossly clear. The heart is normal in size. Sternotomy wires noted.Right-sided PICC leida e has tip in the SVC. IMPRESSION: No acute intrathoracic process suspected.
[2018-05-20] MEDS: NS KCL 20MEQ 20 MEQ/1,000 ML BAG IV SCH ×3 (08:50→16:50)
[2018-05-20] MEDS: ASPIRIN EC 81 MG TAB PO SCH (08:54)
[2018-05-20] MEDS: MAGNESIUM OXIDE 400 MG TAB PO SCH ×2 (08:55→22:30)
[2018-05-20] MEDS: ONDANSETRON 4 MG/2 ML VIAL IV PRN (08:57)
--- NOTE | 2018-05-20 15:50 | ECHO ---
HEIGHT: 5 ft 9 in WEIGHT: 146 lb 3.2 oz DATE OF STUDY: 05/20/[address]: Mor Perdue MD 2-DIMENSIONAL: YES M.MODE: YES DOPPLER: YES COLOR FLOW: YES TDS: NO PORTABLE: NO DEFINITY: NO BUBBLE STUDY: NO DIAGNOSIS: ABNORMAL TROPONIN I CARDIAC HISTORY: CATHERIZATION: YES SURGERY: YES PROSTHETIC VALVE: NO PACEMAKER: NO MEASUREMENTS (cm) DIASTOLIC (NORMALS) SYSTOLIC (NORMALS) IVSd 1.3 (0.6-1.2) LA Diam 4.2 (1.9-4.0) LVEF 60% LVIDd 4.3 (3.5-5.7) LVIDs 30 (2.0-3.5) %FS 31% LVPWd 1.4 (0.6-1.2) Ao Diam 3.1 (2.0-3.7) 2 DIMENSIONAL ASSESSMENT: RIGHT ATRIUM: NORMAL LEFT ATRIUM: DILATED RIGHT VENTRICLE: NORMAL LEFT VENTRICLE: LEFT VENTRICULAR HYPERTROPHY TRICUSPID VALVE: NORMAL MITRAL VALVE: NORMAL PULMONIC VALVE: NORMAL AORTIC VALVE: SCLEROSIS PERICARDIAL EFFUSION: NONE AORTIC ROOT: NORMAL LEFT VENTRICULAR WALL MOTION: NORMAL. DOPPLER/COLOR FLOW: MILD TRICUSPID REGURGITATION. COMMENTS: LEFT VENTRICULAR HYPERTROPHY. NORMAL EJECTION FRACTION. AORTIC SCLEROSIS. NO WALL MOTION ABNORMALITY. MILD TRICUSPID REGURGITATION. NORMAL RIGHT VENTRICULAR SYSTOLIC PRESSURE. LEFT ATRIAL ENLARGEMENT. TECHNOLOGIST: SALOME FORDE
--- NOTE | 2018-05-20 15:51 | EKG ---
Test Date: 2018-05-20 Test Time: 07:28:07 Casing Running Machine Tender: COREY MEASUREMENT RESULTS: Intervals: Rate: 71 DC: 196 QRSD: 158 QT: 446 QTc: 484 [place]: P: 56 DC: 196 QRS: -70 T: 39 INTERPRETIVE STATEMENTS: Sinus rhythm with premature atrial complexes Right bundle branch block Left anterior fascicular block Bifascicular block Septal infarct, age undetermined Abnormal ECG Compared to ECG 05/19/2018 10:15:35 Left anterior fascicular block now present Bifascicular block now present Myocardial infarct finding still present Electronically Signed On 05-20-18 15:50:11 CDT by Nba Dumont
[2018-05-20] MEDS: ENOXAPARIN 40 MG/0.4 ML SQ SCH (17:28)
[2018-05-20] MEDS ORDERED: MORPHINE 2 MG/ML SYR IV ONE (19:00)
--- NOTE | 2018-05-20 21:15 | CON ---
History Of Present Illness: This is a 73-year-old male. I was consulted for the patient's confusion and altered mental status. The patient was brought into the emergency room with the altered mental status. Denies any headache, nausea, vomiting, chest pain, abdominal pain, constipation, or diarrhea . The patient was initially treated for 6 weeks of antibiotic for L4-L5 spinal abscesses, epidural a bscesses and osteomyelitis. The patient denies any headache, nausea, or vomiting. At this time, the patient is off antibiotic. Blood cultures are negative for 24 hours. His chest x-ray is negative. CBC does not show leukocytosis. Past Medical History: Includes hypertension, stroke, recent history of osteomyelitis of L4-L5 region , myocardial infarction, TIA. Social History: Nonsmoker, nondrinker. Family History: Noncontributory. Medications: See MARS. Allergies: NO KNOWN DRUG ALLERGIES. Review of Systems: A 10-point review was performed. Physical Examination: General: This is a 73-year-old male, lying in bed, not in any acute cardiopulmonary distress. Vital Signs: Temperature 97, pulse 67, respirations 18, blood pressure 180/75. HEENT: Unremarkable. Neck: Supple. Lungs: Basal crackles. Heart: S1, S2. Regular. Abdomen: Soft, nontender. Bowel sounds present. Extremity: No edema. Back: Tenderness noted. Laboratory Data: Shows WBC is 5.6, hemoglobin 11.6, platelets are 180. Chemistry shows sodium 139, potassium 3.8, chloride 102, bicarb 30, BUN 14, creatinine 0.98, glucose 134. Micro data, blood cult ures are negative for 24 hours. Urine cultures negative. Chest x-ray is normal. Assessment And Plan: A 73-year-old male with the altered mental status. Currently, all the signs fo r infections are negative, except possibility of lumbar area abscess and osteomyelitis. We will alejandro mmend to get a CT lumbar spine, MRI and abdominal and pelvis MRI, if possible. Hold antibiotic at th is time. We will monitor the patient closely. Thank you, Dr. Martin, for consult. NF/MODL Voice ID: [id number] Report ID: [id number]
[2018-05-20] MEDS: PANTOPRAZOLE 40MG TABLET PO SCH (22:30)
[2018-05-20] MEDS: ATORVASTATIN 10 MG TAB PO SCH (22:30)
[2018-05-21] MEDS: MORPHINE 4 MG/ML SYR IV PRN ×3 (00:08→16:46)
[2018-05-21] MEDS: cloNIDine HCl 0.1 MG TAB PO PRN ×2 (00:40→05:12)
[2018-05-21] MEDS: METOPROLOL XL 25 MG TAB PO SCH (05:12)
[2018-05-21] MEDS: PANTOPRAZOLE 40MG TABLET PO SCH (05:12)
[2018-05-21 05:50] LABS: Potassium 4.2 mmol/L (3.5-5.1)
--- NOTE | 2018-05-21 06:17 | PN ---
Mr. Castillo has been in the hospital since 05/19/2018. Dr. Perdue saw him on 05/19/2018 because of w eakness, dehydration. No chest pain. Elevated troponin. Infection. An echocardiogram, which was o rdered by Dr. Perdue to rule out wall motion abnormalities, was done today and that showed no wall mo tion abnormalities, no pericardial effusion. We will sign off Mr. Castillo's case and will be availab le for questions if the need arises. We believe his elevated troponin is secondary to dehydration an d infection. NB/MODL Voice ID: [id number] Report ID: [id number]
[2018-05-21] MEDS: INSULIN -REGULAR HUMAN 50 UNIT/0.5 ML ML SQ SCH ×4 (07:30→21:00)
[2018-05-21] MEDS: NS KCL 20MEQ 20 MEQ/1,000 ML BAG IV SCH ×3 (08:59→16:50)
[2018-05-21] MEDS: NIFEDIPINE XL 60 MG TABLET PO SCH (09:00)
[2018-05-21] MEDS: MAGNESIUM OXIDE 400 MG TAB PO SCH ×2 (09:01→21:38)
[2018-05-21] MEDS: FAMOTIDINE 20 MG/2 ML VIAL IV SCH ×2 (09:02→21:38)
[2018-05-21] MEDS: ASPIRIN EC 81 MG TAB PO SCH (09:06)
[2018-05-21] MEDS: ONDANSETRON 4 MG/2 ML VIAL IV PRN (11:40)
--- NOTE | 2018-05-21 15:37 | PN ---
Subjective: The patient is lying in bed. Denies any headache, nausea, vomiting, chest pain, abdomin al pain, constipation. Continues to have back aches. Objective: Vital Signs: Temperature 97.6, pulse 57, respirations 18, blood pressure 196/88. Lungs: Basal crackles. Heart: S1, S2. Regular. Abdomen: Soft, nontender. Bowel sounds present. Extremities: No edema. Muscle wasting noted. Tenderness at the lumbar spine noted. Lab Data: No new labs for today except sodium 143, potassium 4.2, chloride 110, bicarb 29, BUN 13, c reatinine 0.98, glucose 105. Pre-albumin is 12. Micro data shows blood cultures negative. Urine cu ltures negative. Chest x-ray is negative. Assessment And Plan: At this point, I do not see any active infection causing his altered mental sta tus. The patient is improved without any antibiotic and cultures are negative. We will discharge fr om service and continue followup as needed. The patient is unable to get the MRI done because of his severe back pain. NF/MODL Voice ID: [id number] Report ID: [id number]
[2018-05-21] MEDS: ENOXAPARIN 40 MG/0.4 ML SQ SCH (16:45)
--- NOTE | 2018-05-21 20:28 | PN ---
Date of Progress Note: 05/21/2018 The patient does seem a little better today; however, his general condition is concerned. Although, he still has episodes of confusion and still complains of discomfort. The other significant factor i s his prealbumin, was down to 12. He is still not eating well and taking fluids slowly. We will obt ain a dietary consultation, perhaps he will require some form of alimentation. Also discuss his case further with his neurosurgeon in [place]. At the present time, he is on potassium replacement and w e will continue with this and fluids till the methods of nourishment is decided upon. HR/MODL Voice ID: [id number] Report ID: [id number]
[2018-05-21] MEDS: ATORVASTATIN 10 MG TAB PO SCH (21:38)
[2018-05-22] MEDS: METOPROLOL XL 25 MG TAB PO SCH (05:49)
[2018-05-22] MEDS: INSULIN -REGULAR HUMAN 50 UNIT/0.5 ML ML SQ SCH ×4 (07:30→21:00)
[2018-05-22] MEDS: ASPIRIN EC 81 MG TAB PO SCH (08:49)
[2018-05-22] MEDS: FAMOTIDINE 20 MG/2 ML VIAL IV SCH ×2 (08:49→21:11)
[2018-05-22] MEDS: MAGNESIUM OXIDE 400 MG TAB PO SCH ×2 (08:50→21:11)
[2018-05-22] MEDS: NIFEDIPINE XL 60 MG TABLET PO SCH (08:50)
[2018-05-22] MEDS: PANTOPRAZOLE 40MG TABLET PO SCH (08:50)
--- NOTE | 2018-05-22 09:21 | HP ---
Date of Admission: 05/21/2018 Basically status quo. However, the patient has significant episodes of confusion and requires a mode rate amount of pain medication, possibility of the connection between the 2 was considered, and an at tempt was made to decrease the pain medication. However, once this was done, his blood pressure spik ed to close to 200, and this has been his pattern for a number of months now. He was restarted on hi s blood pressure medication. Physical therapy was instituted. His hydration however had markedly im proved as well as his abnormal electrolytes including potassium and magnesium. The question of dispo sition was discussed as patient had recently been in an LTAC, which he preferred not to stay, and wou ld like to be at home. We will discuss this further tomorrow. /JIE Voice ID: [id number]
[2018-05-22] MEDS: MORPHINE 4 MG/ML SYR IV PRN (17:00)
[2018-05-22] MEDS: ENOXAPARIN 40 MG/0.4 ML SQ SCH (17:01)
[2018-05-22] MEDS: ATORVASTATIN 10 MG TAB PO SCH (21:11)
--- NOTE | 2018-05-23 05:57 | EKG ---
Test Date: 2018-05-23 Test Time: 00:10:54 Patrol Inspector: RT MEASUREMENT RESULTS: Intervals: Rate: 99 [place]: QRSD: 160 QT: 412 QTc: 528 [place]: P: [place]: QRS: 257 T: 38 INTERPRETIVE STATEMENTS: Atrial fibrillation Right bundle branch block Septal infarct, age undetermined Abnormal ECG Compared to ECG 05/20/2018 07:28:07 Sinus rhythm no longer present Myocardial infarct finding still present Electronically Signed On 05-23-18 05:56:21 CDT by Mor Perdue
[2018-05-23] MEDS: METOPROLOL XL 25 MG TAB PO SCH (06:12)
[2018-05-23 06:33] LABS: Absolute Monocytes 0.7 K/uL (0.1-1.3); Absolute Neutrophil 3.6 K/uL (1.8-8.0); Basophils % 1.3 % (0-1.3); Eosinophils % 0.5 % (0-4.4); Hematocrit 36.1 % (39.6-49.0); Lymphocytes % 18.8 % (15.3-44.8); MPV 8.9 fL (7.6-11.3); Monocytes % 12.1 % (3.3-12.3); RBC Red Blood Cell Count 4.32 M/uL (4.33-5.43)
[2018-05-23] MEDS: MORPHINE 4 MG/ML SYR IV PRN ×2 (06:38→15:19)
[2018-05-23 06:46] LABS: Magnesium 1.5 mg/dL (1.8-2.4)
[2018-05-23] MEDS: INSULIN -REGULAR HUMAN 50 UNIT/0.5 ML ML SQ SCH ×4 (07:30→20:59)
[2018-05-23] MEDS: ENOXAPARIN 60 MG/0.6 ML SQ SCH ×2 (07:40→20:59)
[2018-05-23] MEDS ORDERED: Magnesium Sulfate 2gm IVPB 2 G/50 ML BAG IV ONE (07:45)
[2018-05-23] MEDS: KCL 20 MEQ/100 mL IVPB 20 MEQ/100 ML BAG IV SCH ×3 (09:00→12:20)
[2018-05-23] MEDS: FAMOTIDINE 20 MG/2 ML VIAL IV SCH ×2 (09:20→21:01)
[2018-05-23] MEDS: ASPIRIN EC 81 MG TAB PO SCH (09:20)
[2018-05-23] MEDS: PANTOPRAZOLE 40MG TABLET PO SCH (09:20)
[2018-05-23] MEDS: MAGNESIUM OXIDE 400 MG TAB PO SCH ×2 (09:20→20:58)
[2018-05-23] MEDS: NIFEDIPINE XL 60 MG TABLET PO SCH (09:20)
--- NOTE | 2018-05-23 10:19 | PN ---
Date of Progress Note: 05/22/2018 The patient seems to be somewhat more orientated today. He still has marked discomfort, and there is some question as far as disposition is concerned. The possibility of home with home health from [facility] he came, however, resulted in dehydration problem, and the possibility of going back to SNF has to be considered. This will be discussed with his family. HR/JIE Voice ID: [id number] Report ID: [id number]
--- NOTE | 2018-05-23 11:43 | RAD REPORT ---
EXAM DESCRIPTION: CT - Abdomen Pelvis W Contrast - 05/23/2018 11:07 am CLINICAL HISTORY: Lumbar osteomyelitis, abdominal pain, weight loss COMPARISON: CT study August 2013, MRI study February 2018 TECHNIQUE: Biphasic, helical CT imaging of the abdomen and pelvis was performed following 100 ml non -ionic IV contrast. No oral contrast administered. Exam was performed with the patient on his right-s gerald due to back pain. Sagittal and coronal reconstruction images of the spine generated and reviewed. All CT scans are performed using dose optimization technique as appropriate and may include automated exposure control or mA/KV adjustment according to patient size. FINDINGS: No suspicious findings in the lung bases. No pericardial thickening or effusion. Moderate-size hiatal hernia is present with approximately 50% of the stomach intrathoracic. This is s table from prior imaging. Liver shows a mild diffuse fatty infiltration pattern with no focal liver lesion identified. No splen ic abnormality. Fat infiltration into the pancreas is present with no acute pancreatic process. Pancr eatic volume loss changes are similar to comparison. Small echogenic focus is present in the fundus o f the gallbladder. This is most likely a small gallstone. Additional stones could be present an occul t. No biliary tree dilatation. Symmetric renal function is seen with no hydronephrosis or suspicious renal mass. No pyelonephritis o r acute parenchymal process. Urinary bladder is mostly contracted limiting assessment. Mild prominenc e the prostate gland noted. No adrenal abnormalities. No dilatation or wall thickening of the stomach. No dilated small bowel loops. A prominent loop of sm all bowel is present in the mid abdomen. Small bowel is otherwise unremarkable. No appendicitis findi ngs. Moderate stool volume is present throughout the colon from cecum through sigmoid colon. There is a large amount of stool present at dilates the rectum. No hernia, mass or bulky lymphadenopathy. No free air, free fluid or inflammatory stranding. Disc and bony degenerative changes are present. Progressive disc space narrowing at L3-4. There is si gnificant irregular contour to the endplates with greater right lateral and posterior subluxation of L3 than seen previously. The L3-4 disc and endplate changes are progressive from the mid February MRI study. There is height loss along the left lateral margin of the L3 body. IMPRESSION: Large stool volume dilating the rectum with moderate stool volume throughout the colon. No bowel obstruction, mass or other emergent finding in the peritoneal or retroperitoneal spaces. Progressive changes involving the L3 and L4 bodies and L3-4 disc space as detailed. Findings are prog ressive from the mid February 2018 MRI study. Findings are suspicious for progressive discitis/osteom yelitis.
[2018-05-23] MEDS: VANCOMYCIN 1.25 GM in NA CHLORIDE 0.9% 250 ML IVPB SCH (17:25)
[2018-05-23] MEDS: SOTALOL HCL 80 MG TAB PO SCH (17:58)
[2018-05-23] MEDS ORDERED: KCL 20 MEQ/100 mL IVPB 20 MEQ/100 ML BAG IV SCH (20:00)
--- NOTE | 2018-05-23 20:45 | PN ---
He remains in atrial fibrillation. We will give him Betapace and anticoagulation and then by tomorro w if he is still in atrial fibrillation, we will consider cardioversion and hoping that the medicine alone will help. LAUREN Voice ID: [id number] Report ID: [id number]
[2018-05-23] MEDS: CEFEPIME/SWI 1gm 10 ML IVP SCH (20:58)
[2018-05-23] MEDS: ATORVASTATIN 10 MG TAB PO SCH (20:58)
[2018-05-23] MEDS: GLUCERNA SHAKE 237 ML CAN PO SCH (21:00)
[2018-05-24 04:49] LABS: Absolute Lymphocytes (CBC) 0.5 K/uL (0.7-4.9); Absolute Monocytes 0.5 K/uL (0.1-1.3); Absolute Neutrophil 7.3 K/uL (1.8-8.0); Basophils % 1.2 % (0-1.3); Eosinophils % 2.8 % (0-4.4); Hematocrit 37.7 % (39.6-49.0); Lymphocytes % 5.4 % (15.3-44.8); MPV 8.8 fL (7.6-11.3); RBC Red Blood Cell Count 4.43 M/uL (4.33-5.43)
[2018-05-24 05:11] LABS: Bilirubin Total 0.6 mg/dL (0.2-1.0); Potassium 3.4 mmol/L (3.5-5.1); Protein, Total 7.1 g/dL (6.4-8.2)
[2018-05-24] MEDS: SOTALOL HCL 80 MG TAB PO SCH ×2 (05:30→17:03)
[2018-05-24] MEDS: MORPHINE 4 MG/ML SYR IV PRN ×2 (06:49→10:43)
[2018-05-24] MEDS: INSULIN -REGULAR HUMAN 50 UNIT/0.5 ML ML SQ SCH ×4 (07:30→20:52)
[2018-05-24] MEDS: KCL 20 MEQ/100 mL IVPB 20 MEQ/100 ML BAG IV SCH ×2 (08:00→10:02)
[2018-05-24] MEDS: GLUCERNA SHAKE 237 ML CAN PO SCH ×2 (09:00→20:52)
[2018-05-24] MEDS: ENOXAPARIN 60 MG/0.6 ML SQ SCH ×2 (09:00→20:50)
[2018-05-24] MEDS: ASPIRIN EC 81 MG TAB PO SCH (09:00)
--- NOTE | 2018-05-24 09:49 | PN ---
Mr. Castillo is now in sinus rhythm, and I recommend we continue the present therapy of Betapace 40 b. i.d. He seems to have stable vital signs, heart rate 80, blood pressure 135/64. AGUILA/JIE Voice ID: [id number] Report ID: [id number]
[2018-05-24] MEDS: MAGNESIUM OXIDE 400 MG TAB PO SCH ×2 (10:15→20:51)
[2018-05-24] MEDS: NIFEDIPINE XL 60 MG TABLET PO SCH (10:16)
[2018-05-24] MEDS: FAMOTIDINE 20 MG/2 ML VIAL IV SCH (10:16)
[2018-05-24] MEDS: PANTOPRAZOLE 40MG TABLET PO SCH (10:16)
[2018-05-24] MEDS: CEFEPIME/SWI 1gm 10 ML IVP SCH ×2 (10:16→20:51)
[2018-05-24] MEDS: VANCOMYCIN 1.25 GM in NA CHLORIDE 0.9% 250 ML IVPB SCH (11:00)
--- NOTE | 2018-05-24 14:04 | PN ---
Date of Progress Note: 05/23/2018 Basically, the patient still complains of discomfort and has had difficulty with physical therapy. O rientation is variable as well. CAT scan was done reveal multiple problems including large hiatal he rnia, possibly contributing to his anorexia and significant amount of stools, required enema evacuati on, once again probably playing a part in his anorexia. However, most significant change has been in the CT scan of the abdomen and pelvis, which they could see some changes anatomically in the lower l umbar area as well as either progression or status quo in the osteo. We will therefore restart his a ntibiotics, re-consult ID, and discuss his case with the neurosurgeon in [place] next week. At this time, his electrolytes, which were markedly abnormal on admission, remained stable, seen by the syed galeana as well. The patient was also found to have episodes of atrial fibrillation and once again, his electrolytes were off with a marked decrease in potassium, magnesium. It will be corrected with the protocol. HR/MODL Voice ID: [id number] Report ID: [id number]
--- NOTE | 2018-05-24 15:10 | PN ---
Date of Progress Note: 05/24/2018 The patient when seen was still very sleepy. However, according to the nursing staff, he is very con cerned about movement causing his pain. However, he has required a fair amount of analgesics and thi s has been his pattern for a number of months now. We will try and decrease his MS. He has been sta rted on his IV antibiotics. He has stable sinus rhythm. His appetite is still decreased, possibly s econdary to a combination of factors including the analgesics. HR/MODL Voice ID: [id number] Report ID: [id number]
[2018-05-24] MEDS: MORPHINE 2 MG/ML SYR IV PRN (20:50)
[2018-05-24] MEDS: ATORVASTATIN 10 MG TAB PO SCH (20:51)
[2018-05-25] MEDS: MORPHINE 2 MG/ML SYR IV PRN ×2 (00:56→05:22)
[2018-05-25] MEDS: VANCOMYCIN 1.25 GM in NA CHLORIDE 0.9% 250 ML IVPB SCH (05:03)
[2018-05-25] MEDS: SOTALOL HCL 80 MG TAB PO SCH ×2 (05:04→18:00)
[2018-05-25 06:00] LABS: Potassium 3.8 mmol/L (3.5-5.1)
[2018-05-25] MEDS: INSULIN -REGULAR HUMAN 50 UNIT/0.5 ML ML SQ SCH ×4 (07:30→20:34)
[2018-05-25] MEDS: GLUCERNA SHAKE 237 ML CAN PO SCH ×2 (09:00→20:35)
[2018-05-25] MEDS: CEFEPIME/SWI 1gm 10 ML IVP SCH ×2 (09:00→20:33)
[2018-05-25] MEDS ORDERED: KCL 20 MEQ/100 mL IVPB 20 MEQ/100 ML BAG IV SCH (09:00)
[2018-05-25] MEDS: NIFEDIPINE XL 60 MG TABLET PO SCH (10:33)
[2018-05-25] MEDS: ENOXAPARIN 60 MG/0.6 ML SQ SCH ×2 (10:33→20:44)
[2018-05-25] MEDS: PANTOPRAZOLE 40MG TABLET PO SCH (10:33)
[2018-05-25] MEDS: MAGNESIUM OXIDE 400 MG TAB PO SCH ×2 (10:34→20:33)
[2018-05-25] MEDS: ASPIRIN EC 81 MG TAB PO SCH (10:34)
[2018-05-25] MEDS: DIPHENHYDRAMINE 25 MG TAB/CAP PO PRN (16:02)
--- NOTE | 2018-05-25 16:12 | PN ---
Date of Progress Note: 05/25/2018 The patient actually seems more lucid today, possibly because of cutdown of the dose. How ever, he also has paretic areas all over his extremities, although no overt urticaria. After reviewi margy his medicine list the possibility of being vancomycin correlate with time factor is pos sible and therefore I will hold this and start some Benadryl. The other issue is disposition and he feels an LTAC is not for him and is being Home Health with for his IV antibiotics. Theref ore, we will talk to the neurosurgeon and get his opinions and if in fact, we can arrange significant PT, then Home Health may be the optimal choice. Actually, his appetite seems a little bit better to day too, so I am not sure because it has fluctuated in the past with his direct correlation with the analgesics. However, he still states that none of the pain things give him help. I talked to him ab out doing physical therapy and he says it is difficult because of the pain. He has had everything fr om water therapy to usual modalities and feels this has not been effective and is painful. Although, I also discussed with a back program for him possibly in the [place] area for PT and pain management . HR/MODL Voice ID: [id number] Report ID: [id number]
[2018-05-25] MEDS ORDERED: BISACODYL E.C. 5 MG TAB PO PRN (16:16)
[2018-05-25] MEDS: ATORVASTATIN 10 MG TAB PO SCH (20:33)
[2018-05-26 05:34] LABS: Potassium 3.4 mmol/L (3.5-5.1)
[2018-05-26] MEDS: SOTALOL HCL 80 MG TAB PO SCH ×2 (05:34→17:38)
[2018-05-26] MEDS ORDERED: POTASSIUM 25 MEQ EFFERV TAB PO ONE (06:21)
[2018-05-26] MEDS: INSULIN -REGULAR HUMAN 50 UNIT/0.5 ML ML SQ SCH ×4 (07:30→20:29)
[2018-05-26] MEDS: PANTOPRAZOLE 40MG TABLET PO SCH (08:59)
[2018-05-26] MEDS: NIFEDIPINE XL 60 MG TABLET PO SCH (08:59)
[2018-05-26] MEDS: MAGNESIUM OXIDE 400 MG TAB PO SCH ×2 (08:59→20:27)
[2018-05-26] MEDS: ASPIRIN EC 81 MG TAB PO SCH (08:59)
[2018-05-26] MEDS: ENOXAPARIN 60 MG/0.6 ML SQ SCH ×2 (09:00→20:27)
[2018-05-26] MEDS: CEFEPIME/SWI 1gm 10 ML IVP SCH ×2 (09:00→20:27)
[2018-05-26] MEDS: GLUCERNA SHAKE 237 ML CAN PO SCH ×2 (09:00→20:28)
[2018-05-26] MEDS: ACETAMINOPHEN 500 MG TAB PO PRN (09:01)
[2018-05-26] MEDS: ATORVASTATIN 10 MG TAB PO SCH (20:27)
[2018-05-26] MEDS: DIPHENHYDRAMINE 25 MG TAB/CAP PO PRN (20:28)
[2018-05-27] MEDS: DIPHENHYDRAMINE 25 MG TAB/CAP PO PRN (02:05)
[2018-05-27] MEDS: ACETAMINOPHEN 500 MG TAB PO PRN ×3 (02:12→21:53)
[2018-05-27] MEDS: SOTALOL HCL 80 MG TAB PO SCH ×2 (05:37→17:24)
[2018-05-27] MEDS: PANTOPRAZOLE 40MG TABLET PO SCH (07:30)
[2018-05-27] MEDS: INSULIN -REGULAR HUMAN 50 UNIT/0.5 ML ML SQ SCH ×4 (07:30→21:00)
[2018-05-27] MEDS: ENOXAPARIN 60 MG/0.6 ML SQ SCH ×2 (08:50→21:48)
[2018-05-27] MEDS: CEFEPIME/SWI 1gm 10 ML IVP SCH ×2 (08:50→21:49)
[2018-05-27] MEDS: ASPIRIN EC 81 MG TAB PO SCH (08:51)
[2018-05-27] MEDS: NIFEDIPINE XL 60 MG TABLET PO SCH (08:51)
[2018-05-27] MEDS: MAGNESIUM OXIDE 400 MG TAB PO SCH ×2 (08:51→21:48)
[2018-05-27] MEDS: GLUCERNA SHAKE 237 ML CAN PO SCH ×2 (09:00→21:49)
[2018-05-27] MEDS: ONDANSETRON 4 MG/2 ML VIAL IV PRN ×2 (10:10→14:54)
--- NOTE | 2018-05-27 13:17 | PN ---
Date of Progress Note: 05/26/2018 The patient continues basically refusing the physical therapy due to the pain and is still lying very quietly in bed. His appetite has improved slightly. His electrolytes seem to be better. There is improvement in his mental status, although he still has some episodes where he is not clear. I will discuss the case further with the neurosurgeon in [place]. I feel he has a combination of circumstan sarah which creates his problem. He definitely has enough changes on his spine to cause some pain and this prevents him from doing the PT and probably needs PT to continue to get his mobility. The infec tious process is another issue and his cardiac status does seem to be stable. He definitely had an e ncephalitic changes, however some of these have been corrected. They were secondary to his nutrition , his electrolyte imbalance. The latter seems to be straightened out and his medication and the latt er has been decreased from 4 mg of morphine when he came in to 1 mg and he said there was very little difference as far as relief. So, depending on the neurosurgeon's perspective, I would like to trans anselmo him back to [facility] to see what can be done prior to his going to and/or an LTAC. HR/MODL Voice ID: [id number] Report ID: [id number]
--- NOTE | 2018-05-27 20:05 | PN ---
Subjective: The patient is being transferred to [facility]. CT scan does show that he has s evere constipation with progressive changes involving L3 and L4 bodies and L3-L4 spaces decreasing. Objective: Vital Signs: Temperature 97.1, pulse 84, respirations 16, blood pressure 188/80. Lungs: Basal crackles. Heart: S1, S2. Regular. Abdomen: Soft, nontender. Bowel sounds present. Extremity: Muscle wasting noted. Laboratory Data: Shows WBC 8.6, hemoglobin 12.5, platelets are 206. Chemistry is showing sodium 137 , potassium 3.4, chloride 103, bicarb 27, BUN 21, creatinine 1.2, glucose 147. Medication: Include aspirin, Tylenol, Lipitor, Dulcolax, cefepime, Catapres, dextrose, Benadryl, Nemo enox, Glucerna, glucagon, insulin, Procardia, morphine, Zofran, Protonix, vancomycin. Assessment And Plan: Osteomyelitis of lumbar spine with worsening spinous process. I would agree wi th being transferred to higher care. We will follow the patient as needed. NF/MODL Voice ID: [id number] Report ID: [id number]
[2018-05-27] MEDS ORDERED: LORAZEPAM 1 MG TABLET PO PRN (21:01)
[2018-05-27] MEDS: ATORVASTATIN 10 MG TAB PO SCH (21:48)
[2018-05-28] MEDS: SOTALOL HCL 80 MG TAB PO SCH (05:34)
[2018-05-28] MEDS: INSULIN -REGULAR HUMAN 50 UNIT/0.5 ML ML SQ SCH ×2 (07:30→11:30)
[2018-05-28 08:33] VITALS: O2SAT 98
[2018-05-28] MEDS: PANTOPRAZOLE 40MG TABLET PO SCH (08:43)
[2018-05-28] MEDS: ENOXAPARIN 60 MG/0.6 ML SQ SCH (08:43)
[2018-05-28] MEDS: MAGNESIUM OXIDE 400 MG TAB PO SCH (08:45)
[2018-05-28] MEDS: ASPIRIN EC 81 MG TAB PO SCH (08:46)
[2018-05-28] MEDS: NIFEDIPINE XL 60 MG TABLET PO SCH (08:46)
[2018-05-28] MEDS: GLUCERNA SHAKE 237 ML CAN PO SCH (08:46)
[2018-05-28] MEDS: CEFEPIME/SWI 1gm 10 ML IVP SCH (08:46)
[2018-05-28] MEDS: ACETAMINOPHEN 500 MG TAB PO PRN (10:16)
--- NOTE | 2018-05-28 16:18 | PN ---
Subjective: The patient is lying in bed, somnolent, not in any acute distress. Objective: Vital Signs: Temperature 98.6, pulse 70, respirations 18, blood pressure 163/77. Lungs: Basal crackles. Heart: S1, S2. Regular. Abdomen: Soft, nontender. Bowel sounds present. Extremities: No edema or muscle wasting noted. Laboratory Data: No new labs available at this time. Assessment And Plan: Diskitis and osteomyelitis of lumbar spine. The patient is currently on cefepi me and vancomycin. Continue antibiotic, pending transfer to [facility]. Continue supportive care as the osteomyelitis has not improved. We will follow the patient as needed. NF/MODL Voice ID: [id number] Report ID: [id number]
[2018-05-28 17:08] VITALS: BP 103/53; TEMP 98.1
--- NOTE | 2018-05-28 20:21 | PN ---
Date of Progress Note: 05/27/2018 Basically he is status quo, perhaps slight increase in appetite. The patient has agreed to transfer to [place] when the bed is available and from there the disposition will be made depending on what is decided as far as treatment is concerned. He become quite nervous and Ativan was added to his regim en. HR/MODL Voice ID: [id number] Report ID: [id number]
== END 2018-05-28 17:06 | disposition short-term general hospital (02) | DRG 539 ==
LOC: ER 09:29 → ERHOLD 13:29 → INTOOBSV 13:29 → 2ND 16:27 → INTOOBSV 05-21 16:31 → OBSVTOIN 05-21 16:31
PROVIDERS: ADMIT Family Medicine; ATTEND Family Medicine
DX: M46.26 Osteomyelitis of vertebra, lumbar region (principal); G93.41 Metabolic encephalopathy; E46 Unspecified protein-calorie malnutrition; E86.0 Dehydration; I48.91 Unspecified atrial fibrillation; K44.9 Diaphragmatic hernia without obstruction or gangrene; K59.00 Constipation, unspecified; M46.46 Discitis, unspecified, lumbar region; I10 Essential (primary) hypertension; Z86.73 Personal history of transient ischemic attack (TIA), and cerebral infarction without residual deficits; I25.2 Old myocardial infarction; I25.10 Atherosclerotic heart disease of native coronary artery without angina pectoris; Z95.1 Presence of aortocoronary bypass graft; E11.9 Type 2 diabetes mellitus without complications; E87.6 Hypokalemia; E83.42 Hypomagnesemia; G89.29 Other chronic pain
CPT/HCPCS: 36415; 71045; 74177; 80048; 80053; 80076; 80202; 81003; 82962; 83605; 83690; 83735; 83880; 84132; 84134; 84145; 84484; 85025; 85610; 85652; 87040; 87086; 87088; 93005; 93306; 96361; 96365; 96366; 96375; 97162; 97166; 97530; 99285; G0378; J0692; J1650; J2270; J2405; J3010; J3475; J7030; Q9967

== ENCOUNTER 2018-06-20 10:59 | Emergency (ER) | payer OTHER, MEDICARE ==
--- OUTSIDE RECORDS SUMMARY | 2018-06-20 11:04 | XMS REPORT ---
:1945 [facility] Address [address] [place] [address] Care Team Providers Name Role Phone Unavailable [...]
[2018-06-20] MEDS ORDERED: ONDANSETRON 4 MG/2 ML VIAL ONE (11:54)
[2018-06-20] MEDS ORDERED: MORPHINE 2 MG/ML SYR ONE ×3 (11:54→19:44)
[2018-06-20 12:12] LABS: Absolute Lymphocytes (CBC) 0.5 K/uL (0.7-4.9); Absolute Monocytes 0.4 K/uL (0.1-1.3); Absolute Neutrophil 2.6 K/uL (1.8-8.0); Basophils % 1.5 % (0-1.3); Eosinophils % 0.7 % (0-4.4); Hematocrit 33.7 % (39.6-49.0); Lymphocytes % 13.9 % (15.3-44.8); MPV 9.2 fL (7.6-11.3); Monocytes % 12.2 % (3.3-12.3); RBC Red Blood Cell Count 4.04 M/uL (4.33-5.43)
[2018-06-20 12:26] LABS: ALT/SGPT 36 U/L (12-78); AST/SGOT 91 U/L (15-37); Albumin 3.1 g/dL (3.4-5.0); Alkaline Phosphatase 534 U/L (45-117); BUN Blood Urea Nitrogen 16 mg/dL (7-18); Bicarbonate 26 mmol/L (21-32); Bilirubin Direct < 0.1 mg/dL (0-0.2); Bilirubin Total 0.7 mg/dL (0.2-1.0); Glucose Level 146 mg/dL (74-106); Lipase 26 U/L (73-393); Protein, Total 8.4 g/dL (6.4-8.2); Sodium Level 132 mmol/L (136-145)
--- NOTE | 2018-06-20 12:57 | RAD REPORT ---
EXAM DESCRIPTION: US - Scrotum Testicles - 06/20/2018 12:17 pm CLINICAL HISTORY: Testicular pain COMPARISON: None FINDINGS: Right testicle measures 3.1 x 2.2 x 2.7 centimeters. Echotexture is homogeneous. Normal bl ood flow Left testicle measures 2.9 x 1.9 x 2.2 centimeters. Echotexture is homogeneous. Normal blood flow The epididymides are normal in size and echotexture. Normal blood flow is seen. Small left hydrocele IMPRESSION: Small left hydrocele
[2018-06-20] MEDS ORDERED: FENTANYL CITR 100 MCG/2 ML ONE (13:34)
[2018-06-20 14:11] LABS: Urine Bacteria <20 /HPF (NONE SEEN); Urine Culture Reflex Order NOT NEEDED; Urine RBC <5 /HPF (NONE SEEN)
[2018-06-20 14:15] LABS: Urine Blood NEGATIVE (NEG); Urine Glucose TRACE (NEG); Urine Protein 2+ (NEG); Urine Specific Gravity 1.015 (1.005-1.030)
--- NOTE | 2018-06-20 14:31 | RAD REPORT ---
EXAM DESCRIPTION: CT - Abdomen Pelvis W Contrast - 06/20/2018 1:32 pm CLINICAL HISTORY: Abdominal pain, groin pain, difficulty urinating COMPARISON: CT imaging May 23, 2018 TECHNIQUE: Biphasic, helical CT imaging of the abdomen and pelvis was performed following 100 ml non -ionic IV contrast. No oral contrast administered. Patient imaged in the right lateral decubitus posi tion due to back pain precluding supine positioning All CT scans are performed using dose optimization technique as appropriate and may include automated exposure control or mA/KV adjustment according to patient size. FINDINGS: No acute pleural or parenchymal findings in either lung base. No pericardial thickening or effusion. Hiatal hernia is present with approximately 1/3 of the stomach intrathoracic. This is shad lar to comparison. Proximal gastric blanc are accentuated by the herniation defect. Blanc of the stom ach are not accurately assessed in this setting. The liver, spleen, and pancreas show no suspicious findings. Small gallstone is seen in the fundus of the gallbladder similar to comparison. No active gallbladder process seen. No biliary tree dilatatio n. Symmetric renal function is seen with no hydronephrosis or suspicious renal mass. No pyelonephritis o r acute parenchymal process. Slight thickening of the bladder wall is noted not substantially differe nt from comparison. No bladder calculus. No focal bladder wall mass seen. There is laxity along the l ateral inferior aspects of the urinary bladder. Prostate gland is prominent. No seminal vesicle abnor mality. No adrenal abnormalities. No dilation of the large or small bowel seen. Patient has left-sided diverticulosis. There are few pu nctate areas of air seen in the lateral conal fat plane between the descending colon and the ileum. T he adjacent colon has no wall thickening or defined mass evident. No stranding or edema in the fatty tissue. No intraperitoneal free air or pneumatosis. No free fluid seen. No hernia, mass or bulky lymphadenop athy. Advanced disc and bony degenerative changes are present with extensive lower lumbar postsurgical rudolph ge. No acute component seen. Vascular calcifications are present. IMPRESSION: No pyelonephritis, hydronephrosis or acute renal or ureteral abnormality. No focal bladd er abnormality. Prostate gland is prominent. No bowel obstruction or acute bowel finding seen. Small punctate free air is seen in the lateral conal fat between the lateral fascia and the ileum. T his is unusual in presentation. The patient does have diverticulosis in this portion of the colon but no wall thickening, edema or stranding in the fatty tissues. An active colon process is not seen. No history to indicate medication injection in this region. Acute significance is doubtful.
[2018-06-20] MEDS ORDERED: MORPHINE 4 MG/ML SYR ONE (15:22)
[2018-06-20] MEDS ORDERED: NA CHLORIDE 0.9% 500 ML ONE (15:40)
[2018-06-20] MEDS ORDERED: CEFTRIAXONE/SWI 1gm 1 GM/10 ML SYR ONE (15:40)
[2018-06-20] MEDS ORDERED: METOPROLOL TAR 25 MG TAB ONE (17:00)
[2018-06-20] MEDS ORDERED: FUROSEMIDE 20 MG TABLET ONE (17:00)
[2018-06-20] MEDS ORDERED: NIFEDIPINE XL 60 MG TABLET PO ONE (17:00)
--- NOTE | 2018-06-20 17:26 | ER ---
Nurse's Notes [facility] Name: Tacho Lundy Age: 73 yrs Sex: Male : 1945 Arrival Date: 06/20/2018 Time: 11:03 Bed 17 Private MD: German Martin Diagnosis: Dysuria Presentation: 06/20 11:05 Presenting complaint: adult caregiver- hes been complaining of pain in the groin area hj especially when peeing, started for 3 days ago; reports N/V; reports diarrhea for days;. Transition of care: patient was not received from another setting of care. Onset of symptoms was June 20, 2018. Risk Assessment: Do you want to hurt yourself or someone else? Patient reports no desire to harm self or others. Initial Sepsis Screen: Does the patient meet any 2 criteria? No. Patient's initial sepsis screen is negative. Does the patient have a suspected source of infection? No. Patient's initial sepsis screen is negative. Care prior to arrival: None. 11:05 Method Of Arrival: Ambulatory 11:05 Acuity: CORRY 3 hj Historical: - Allergies: 11:08 No Known Allergies; hj - Home Meds: 12:32 fluconazole 200 mg Oral tab 2 tabs once daily [Active]; methocarbamol 500 mg Oral tab em [Active]; gabapentin 100 mg oral cap 2 caps 3 times per day [Active]; magnesium oxide 400 mg Oral tab twice a day [Active]; Nifedipine ER Oral 60 mg daily [Active]; ezetimibe oral 10 mg oral 1 tab once daily [Active]; Lasix 20 mg Oral tab 1 tab once daily [Active]; losartan 25 mg oral tab 1 tab once daily [Active]; metoprolol tartrate 25 mg Oral tab 1 tab once daily [Active]; pantoprazole 40 mg oral TbEC 1 tab once daily [Active]; ramelteon oral 8 mg oral 1 tab once daily [Active]; Flomax 0.4 mg Oral cp24 1 cap once daily [Active]; simvastatin 40 mg Oral tab 1 tab once daily [Active]; - PMHx: 11:08 Chronic pain; Diabetes - NIDDM; Hypertension; hj - PSHx: 11:08 back x 3; hj - Immunization history:: Adult Immunizations up to date. - Social history:: Smoking status: Patient uses tobacco products. - Ebola Screening: : Patient negative for fever greater than or equal to 101.5 degrees Fahrenheit, and additional compatible Ebola Virus Disease symptoms Patient denies exposure to infectious person Patient denies travel to an Ebola-affected area in the 21 days before illness onset No symptoms or risks identified at this time. Screenin:25 Abuse screen: Denies threats or abuse. Nutritional screening: No deficits noted. em Tuberculosis screening: No symptoms or risk factors identified. Fall Risk None identified. Assessment: 11:35 General: Appears in no apparent distress. uncomfortable, Behavior is calm, anxious, em Denies fever. Pain: Complains of pain in pelvis Pain currently is 10 out of 10 on a pain scale. Noted to be crying, grimacing. Neuro: Level of Consciousness is awake, alert, obeys commands, Oriented to person, place, time, situation. Cardiovascular: Capillary refill < 3 seconds Patient's skin is warm and dry. Respiratory: Airway is patent Respiratory effort is even, unlabored, Respiratory pattern is regular, symmetrical, Breath sounds are clear bilaterally. GI: Abdomen is flat, Reports nausea. : Reports burning with urination, pain scrotum. Derm: Skin is intact, is healthy with good turgor, Skin is pink, warm \T\ dry. Musculoskeletal: Capillary refill < 3 seconds, Range of motion: intact in all extremities. 12:30 Reassessment: reports feeling better, rates pain 8/10. em 13:30 Reassessment: gave a UA sample, reports painful urination, 100 mL of bright yellow em clear urine. 14:02 Reassessment: Patient appears in no apparent distress at this time. Patient and/or em family updated on plan of care and expected duration. Pain level reassessed. Patient is alert, oriented x 3, equal unlabored respirations, skin warm/dry/pink. 14:50 Reassessment: reports he would like some IV fluids, reports he is dehydrated, provider em notified. 15:10 Reassessment: unable to tolerate PO fluids, reports nausea and pain, no vomiting noted, em provider notified new medication orders received. 16:14 Reassessment: Patient appears in no apparent distress at this time. diaper saturated em with urine, new brief applied and new gown applied, two warm blankets given. 16:20 Reassessment: Dr. Villarreal at bedside. em 17:00 Reassessment: pt request more IV fluids, reports still nauseated, provider notified, em appears comfortable, rates pain 9/10. 17:15 Reassessment: pending discharge, pt caregiver notified of pt disposition. em 17:30 Reassessment: Patient appears in no apparent distress at this time. Patient and/or em family updated on plan of care and expected duration. Pain level reassessed. diaper saturated with urine, new brief applied and new gown applied. 18:42 Reassessment: No changes from previously documented assessment. Patient and/or family em updated on plan of care and expected duration. Pain level reassessed. Patient is alert, oriented x 3, equal unlabored respirations, skin warm/dry/pink. reports pain is 9/10. 19:15 Reassessment: Patient and/or family updated on plan of care and expected duration. Pain cc3 level reassessed. Patient is alert, oriented x 3, equal unlabored respirations, skin warm/dry/pink. Received this male patient from morning shift [facility] as a case of dysuria already ordered for discharge home but still waiting for his caregiver to come and fetch him. With IV cannula gauge 22 at the left ACV saline locked. Patient still complains of pain on urination, ANNA Garnica informed. 19:54 Reassessment: Patient appears in no apparent distress at this time. Patient and/or cc3 family updated on plan of care and expected duration. Pain level reassessed. Patient is alert, oriented x 3, equal unlabored respirations, skin warm/dry/pink. Caregiver came, ANNA aGrnica discharged the patient home, no prescription given. IV cannula removed and patient left ER vitally stable by wheelchair escorted by me and his caregiver. Patient states feeling better. Patient states symptoms have improved. Vital Signs: 11:08 BP 175 / 106; Pulse 94; Resp 18; Temp 97.6(TE); Pulse Ox 99% on R/A; Weight 54.43 kg; hj Height 5 ft. 9 in. (175.26 cm); Pain 9/10; 12:00 BP 209 / 96; Pulse 90; Resp 18; Pulse Ox 99% on R/A; Pain 8/10; em 13:00 BP 190 / 87; Pulse 81; Resp 20; Pulse Ox 98% on R/A; em 14:00 BP 190 / 93; Pulse 93; Resp 18; Pulse Ox 99% on R/A; Pain 9/10; em 14:56 BP 198 / 95; Pulse 95; Resp 18; Pulse Ox 99% on R/A; em 17:08 BP 166 / 83; Pulse 84; Resp 18; Pulse Ox 100% on R/A; Pain 9/10; em 19:20 BP 158 / 86; Pulse 86; Resp 18 S; Temp 98.8(O); Pulse Ox 99% on R/A; cc3 19:45 BP 149 / 84; Pulse 82; Resp 17 S; Pulse Ox 99% on R/A; cc3 11:08 Body Mass Index 17.72 (54.43 kg, 175.26 cm) hj 14:00 provider notified of BP em ED Course: 11:03 Patient arrived in ED. mr 11:04 German Martin MD is Private Physician. mr 11:07 Triage completed. hj 11:08 Arm band placed on right wrist. hj 11:17 Nahun Miguel PA is PHCP. jmm 11:17 Jacob Villarreal MD is Attending Physician. jmm 11:34 Gunnar Morillo LVN is Primary Nurse. em 11:56 Initial lab(s) drawn, by me, sent to lab. Inserted saline lock: 22 gauge in left dh3 antecubital area, using aseptic technique. Blood collected. 12:00 Patient has correct armband on for positive identification. Placed in gown. Bed in low em position. Call light in reach. Adult w/ patient. Pulse ox on. NIBP on. 12:19 US Scrotum Testicles In Process Unspecified. EDMS 13:31 CT completed. Patient tolerated procedure well. Patient moved to CT via stretcher. nj Patient moved back from CT. 13:32 CT Abd/Pelvis - W/Contrast In Process Unspecified. EDMS 17:25 German Martin MD is Referral Physician. jmm 19:54 No provider procedures requiring assistance completed. IV discontinued, intact, cc3 bleeding controlled, No redness/swelling at site. Pressure dressing applied. Administered Medications: 11:48 Drug: morphine 4 mg Route: IVP; Site: left antecubital; hb 13:56 Follow up: Response: No adverse reaction; Pain is decreased em 11:48 Drug: Zofran 4 mg Route: IVP; Site: left antecubital; hb 13:56 Follow up: Response: No adverse reaction em 13:26 Drug: fentaNYL (PF) 25 mcg Route: IVP; Site: left antecubital; iw 13:56 Follow up: Response: No adverse reaction em 15:16 Drug: morphine 4 mg Route: IVP; Site: left antecubital; em 16:46 Follow up: Response: No adverse reaction; Pain is decreased em 15:20 CANCELLED (Duplicate Order): morphine 4 mg IVP once em 15:33 Drug: NS 0.9% 500 ml Route: IV; Rate: bolus; Site: left antecubital; em 18:03 Follow up: IV Status: Completed infusion; IV Intake: 500ml em 15:37 Drug: Rocephin 1 grams Route: IV; Rate: calculated rate; Site: left antecubital; hb 16:10 Follow up: Response: No adverse reaction; IV Status: Completed infusion; IV Intake: 10mlem 17:08 Drug: LaSIX 20 mg Route: PO; em 18:04 Follow up: Response: No adverse reaction em 17:08 Drug: Metoprolol 25 mg Route: PO; em 18:04 Follow up: Response: No adverse reaction em 17:31 Drug: NS 0.9% 250 ml Route: IV; Rate: bolus; Site: left antecubital; em 19:00 Follow up: Response: No adverse reaction; IV Status: Completed infusion; IV Intake: cc3 250ml 18:01 Drug: NIFEdipine 60 mg Route: PO; em 18:34 Follow up: Response: No adverse reaction em 18:02 Drug: Losartan 25 mg Route: PO; em 18:33 Follow up: Response: No adverse reaction em 19:31 Drug: morphine 2 mg Route: IVP; Site: left antecubital; cc3 19:45 Follow up: Response: No adverse reaction; Pain is decreased cc3 Intake: 16:10 IV: 10ml; Total: 10ml. em 18:03 IV: 500ml; Total: 510ml. em 19:00 IV: 250ml; Total: 760ml. cc3 Outcome: 17:25 Discharge ordered by . sera 19:54 Patient left the ED. cc3 19:54 Discharged to home via wheelchair, with caregiver cc3 19:54 Condition: stable 19:54 Discharge instructions given to patient, hay chopper, Instructed on discharge instructions, follow up and referral plans. Demonstrated understanding of instructions, follow-up care. Signatures: Dispatcher [employer] EDMS Nahun Miguel, ANNA zamora Francine Winter, Gunnar, CREW CLERK CREW CLERK em Soco Mix RN RN Memo Ham RN RN hj Baxter, Heather, RN RN hb Jordan, Nathan nj Herrera, Amanda [facility] Anna Marie Escobar cc3 Corrections: (The following items were deleted from the chart) 11:10 11:08 Pulse 100bpm; Resp 18bpm; Pulse Ox 99% RA; Temp 97.6F Temporal; 54.43 kg; Height hj 5 ft. 9 in.; BMI: 17.7; Pain 9/10; hj 11:11 11:05 Presenting complaint: adult caregiver- hes been complaining of pain in the groin area hj especially when peeing, started for 3 days ago; reports N/V; hj 17:13 15:10 Reassessment: unable to tolerate PO fluids, reports nausea and pain, provider em notified new medication orders received em 18:42 11:35 General: Appears in no apparent distress. uncomfortable, Behavior is calm, em anxious, Reports fever for em 18:42 18:41 Reassessment: Patient denies pain at this time. em em 18:45 14:00 BP 190 / 93; Pulse 93bpm; Resp 18bpm; Pulse Ox 99% RA; Pain 9/10; em em 20:01 19:15 Reassessment: Patient appears in no apparent distress at this time. Patient cc3 and/or family updated on plan of care and expected duration. Pain level reassessed. Patient is alert, oriented x 3, equal unlabored respirations, skin warm/dry/pink. Received this male patient from morning shift CREW CLERK Gunnar as a case of dysuria already ordered for discharge home but still waiting for his caregiver to come and fetch him. With IV cannula gauge 22 at the left ACV saline locked. cc3 20:02 19:24 BP 149 / 84; Pulse 82bpm; Resp 17bpm; Spontaneous; Pulse Ox 99% RA; cc3 cc3
--- NOTE | 2018-06-20 17:26 | EDPHYS ---
Physician Documentation [facility] Name: Tacho Lundy Age: 73 yrs Sex: Male : 1945 Arrival Date: 06/20/2018 Time: 11:03 Bed 17 Private MD: German Martin ED Physician Jacob Villarreal HPI: 06/20 11:30 This 73 yrs old Male presents to ER via Ambulatory with complaints of Urinary jmm Problem, Diarrhea. 11:30 The patient presents with urinary symptoms, dysuria. Onset: The symptoms/episode jmm began/occurred gradually, 3 day(s) ago. This is a 73 year old male with a history of chronic pain, DM, HTN that presents to the ED with complaints of left groin pain beginning 3 days ago with progressively worsening dysuria. Patient denies fever. Patient admits to vomiting and nausea. Denies diarrhea. . Historical: - Allergies: 11:08 No Known Allergies; hj - Home Meds: 12:32 fluconazole 200 mg Oral tab 2 tabs once daily [Active]; methocarbamol 500 mg Oral tab em [Active]; gabapentin 100 mg oral cap 2 caps 3 times per day [Active]; magnesium oxide 400 mg Oral tab twice a day [Active]; Nifedipine ER Oral 60 mg daily [Active]; ezetimibe oral 10 mg oral 1 tab once daily [Active]; Lasix 20 mg Oral tab 1 tab once daily [Active]; losartan 25 mg oral tab 1 tab once daily [Active]; metoprolol tartrate 25 mg Oral tab 1 tab once daily [Active]; pantoprazole 40 mg oral TbEC 1 tab once daily [Active]; ramelteon oral 8 mg oral 1 tab once daily [Active]; Flomax 0.4 mg Oral cp24 1 cap once daily [Active]; simvastatin 40 mg Oral tab 1 tab once daily [Active]; - PMHx: 11:08 Chronic pain; Diabetes - NIDDM; Hypertension; hj - PSHx: 11:08 back x 3; hj - Immunization history:: Adult Immunizations up to date. - Social history:: Smoking status: Patient uses tobacco products. - Ebola Screening: : Patient negative for fever greater than or equal to 101.5 degrees Fahrenheit, and additional compatible Ebola Virus Disease symptoms Patient denies exposure to infectious person Patient denies travel to an Ebola-affected area in the 21 days before illness onset No symptoms or risks identified at this time. ROS: 11:30 Constitutional: Negative for fever, chills, and weight loss, Cardiovascular: Negative jmm for chest pain, palpitations, and edema, Respiratory: Negative for shortness of breath, cough, wheezing, and pleuritic chest pain. 11:30 : Positive for urinary symptoms. 11:30 All other systems are negative. Exam: 11:30 Head/Face: atraumatic. Eyes: EOMI, no conjunctival erythema appreciated ENT: Moist jmm Mucus Membranes Neck: Trachea midline, Supple Chest/axilla: Normal chest wall appearance and motion. Cardiovascular: Regular rate and rhythm. No edema appreciated Respiratory: Normal respirations, no respiratory distress appreciated 11:30 Constitutional: The patient appears alert, awake, anxious, uncomfortable. 11:30 Abdomen/GI: Inspection: abdomen appears normal, Bowel sounds: normal, Palpation: soft, mild abdominal tenderness, in the left lower quadrant. 11:30 Back: vertebral tenderness, is not appreciated. 11:30 Musculoskeletal/extremity: ROM: intact in all extremities, full dorsalis pedis pulses bilaterally. 11:30 Skin: Appearance: Color: normal in color. 11:30 Neuro: Orientation: is normal, Mentation: is normal, Memory: is normal. 11:30 Psych: Behavior/mood is pleasant, cooperative. Vital Signs: 11:08 BP 175 / 106; Pulse 94; Resp 18; Temp 97.6(TE); Pulse Ox 99% on R/A; Weight 54.43 kg; hj Height 5 ft. 9 in. (175.26 cm); Pain 9/10; 12:00 BP 209 / 96; Pulse 90; Resp 18; Pulse Ox 99% on R/A; Pain 8/10; em 13:00 BP 190 / 87; Pulse 81; Resp 20; Pulse Ox 98% on R/A; em 14:00 BP 190 / 93; Pulse 93; Resp 18; Pulse Ox 99% on R/A; Pain 9/10; em 14:56 BP 198 / 95; Pulse 95; Resp 18; Pulse Ox 99% on R/A; em 17:08 BP 166 / 83; Pulse 84; Resp 18; Pulse Ox 100% on R/A; Pain 9/10; em 19:20 BP 158 / 86; Pulse 86; Resp 18 S; Temp 98.8(O); Pulse Ox 99% on R/A; cc3 19:45 BP 149 / 84; Pulse 82; Resp 17 S; Pulse Ox 99% on R/A; cc3 11:08 Body Mass Index 17.72 (54.43 kg, 175.26 cm) hj 14:00 provider notified of BP em MDM: 11:30 Patient medically screened. [facility] 17:11 Data reviewed: vital signs, nurses notes. Counseling: I had a detailed discussion with [facility] the patient and/or guardian regarding: the historical points, exam findings, and any diagnostic results supporting the discharge/admit diagnosis, lab results, the need for outpatient follow up, to return to the emergency department if symptoms worsen or persist or if there are any questions or concerns that arise at home. 17:11 ED course: Patient's imaging studies and labs do not appear consistent with any acute [facility] process. Due to the patient's ongoing complaints of pain on urination, I discussed the patient with Dr. Martin whom does not recommend admission. I discussed the patient with Dr. Villarreal as well whom visited the patient at bedside. The patient expressed concerns about care at home. I discussed with the patient that we can contact [facility] in [place] for observation. I discussed the patient with home care service as well, whom will be available during the day this weekend. Patient declined observation at [facility] Patient given IV antibiotics in the ED and advised to continue outpatient antibiotics. . 06/20 11:32 Order name: Basic Metabolic Panel; Complete Time: 12:37 [facility] 06/20 11:32 Order name: CBC with Diff; Complete Time: 12:37 [facility] 06/20 11:32 Order name: Creatinine for Radiology; Complete Time: 12:37 [facility] 06/20 11:32 Order name: Hepatic Function; Complete Time: 12:37 [facility] 06/20 11:32 Order name: Lipase; Complete Time: 12:37 [facility] 06/20 11:32 Order name: Urine Microscopic Only; Complete Time: 14:16 [facility] 06/20 11:37 Order name: US Scrotum Testicles; Complete Time: 12:59 [facility] 06/20 13:14 Order name: CT Abd/Pelvis - W/Contrast; Complete Time: 14:36 [facility] 06/20 13:56 Order name: Urine Dipstick--Ancillary (enter results); Complete Time: 14:16 [facility] 06/20 11:32 Order name: IV Saline Lock; Complete Time: 12:03 [facility] 06/20 11:32 Order name: Labs collected and sent; Complete Time: 12:03 [facility] 06/20 11:32 Order name: Urine Dipstick-Ancillary (obtain specimen); Complete Time: 13:57 [facility] 06/20 14:40 Order name: PO challenge; Complete Time: 14:48 jm Administered Medications: 11:48 Drug: morphine 4 mg Route: IVP; Site: left antecubital; hb 13:56 Follow up: Response: No adverse reaction; Pain is decreased em 11:48 Drug: Zofran 4 mg Route: IVP; Site: left antecubital; hb 13:56 Follow up: Response: No adverse reaction em 13:26 Drug: fentaNYL (PF) 25 mcg Route: IVP; Site: left antecubital; iw 13:56 Follow up: Response: No adverse reaction em 15:16 Drug: morphine 4 mg Route: IVP; Site: left antecubital; em 16:46 Follow up: Response: No adverse reaction; Pain is decreased em 15:20 CANCELLED (Duplicate Order): morphine 4 mg IVP once em 15:33 Drug: NS 0.9% 500 ml Route: IV; Rate: bolus; Site: left antecubital; em 18:03 Follow up: IV Status: Completed infusion; IV Intake: 500ml em 15:37 Drug: Rocephin 1 grams Route: IV; Rate: calculated rate; Site: left antecubital; hb 16:10 Follow up: Response: No adverse reaction; IV Status: Completed infusion; IV Intake: 10mlem 17:08 Drug: LaSIX 20 mg Route: PO; em 18:04 Follow up: Response: No adverse reaction em 17:08 Drug: Metoprolol 25 mg Route: PO; em 18:04 Follow up: Response: No adverse reaction em 17:31 Drug: NS 0.9% 250 ml Route: IV; Rate: bolus; Site: left antecubital; em 19:00 Follow up: Response: No adverse reaction; IV Status: Completed infusion; IV Intake: cc3 250ml 18:01 Drug: NIFEdipine 60 mg Route: PO; em 18:34 Follow up: Response: No adverse reaction em 18:02 Drug: Losartan 25 mg Route: PO; em 18:33 Follow up: Response: No adverse reaction em 19:31 Drug: morphine 2 mg Route: IVP; Site: left antecubital; cc3 19:45 Follow up: Response: No adverse reaction; Pain is decreased cc3 Disposition: 06/21 10:28 Co-signature as Attending Physician, Jacob Villarreal MD I agree with the assessment and kdr plan of care. Disposition: 06/20/18 17:25 Discharged to Home. Impression: Dysuria. - Condition is Stable. - Discharge Instructions: Dysuria. - Medication Reconciliation Form, Thank You Letter, Antibiotic Education, Prescription Opioid Use form. - Follow up: German Martin MD; When: 2 - 3 days; Reason: Recheck today's complaints, Continuance of care, Re-evaluation by your physician. - Notes: Please continue prescribed antibiotics. Please return to the Emergency Department if you develop - Increased Pain - Fever - Vomiting -Any other concerning symptoms. Signatures: Dispatcher [employer] EDMS Jacob Villarreal MD MD [facility] Nahun Miguel PA PA [facility] Gunnar Morillo, VP VP em Soc[employer] Mix, CINDY RN iw Memo Ham, CINDY RN Laura Tavares RN RN Anna Marie Escobar cc3 Corrections: (The following items were deleted from the chart) 06/20 15:20 15:20 morphine 4 mg IVP once ordered. em em 19:54 17:25 06/20/2018 17:25 Discharged to Home. Impression: Dysuria. Condition is Stable. cc3 Forms are Medication Reconciliation Form, Thank You Letter, Antibiotic Education, Prescription Opioid Use. Follow up: German Martin; When: 2 - 3 days; Reason: Recheck today's complaints, Continuance of care, Re-evaluation by your physician. muriel
[2018-06-20] MEDS ORDERED: NA CHLORIDE 0.9% 250 ML ONE (17:27)
[2018-06-20] MEDS ORDERED: LOSARTAN POTASSIUM 50 MG TABLET PO ONE (18:00)
[2018-06-20 20:16] VITALS: TEMP 97.6
[2018-06-20 20:23] VITALS: BP 149/84; O2SAT 99
== END 2018-06-20 19:54 | disposition home or self-care (01) ==
LOC: ER 10:59
DX: R30.0 Dysuria (principal); I10 Essential (primary) hypertension; E11.9 Type 2 diabetes mellitus without complications; Z72.0 Tobacco use
CPT/HCPCS: 96365; 96367; 96361; 85025; 80048; 36415; 80076; 83690; 74177; 76870; 96375; 99284; Q9967; J3010; J2270 ×3; J0696; J2405; 81003; 81015

== ENCOUNTER 2019-06-08 21:08 | Inpatient (IN) | payer OTHER, MEDICARE ==
--- OUTSIDE RECORDS SUMMARY | 2019-06-08 21:10 | XMS REPORT | Summary of Care ---
:1945 Author Organization [facility] Address [address] [place] [id number] Care Team Providers Name Role Phone Pcp, Patient Does Not Have A Primary Care Provider Reason for Visit Reason Comments Results Biopsy Encounter Details Date Type Department Care Team Description 04/08/2019 Telephone [facility] Dermatology, Rinku Davis, Results (Biopsy) Marlene Fuchs MD [id number], [address] [place] [address] [place], [place] [phone] [id number] [phone] Allergies No Known Allergiesdocumented as of this encounter (statuses as of 04/08/2019) Medications Medication Sig Dispensed Refills Start Date End Date Status enalapril (VASOTEC) 5 mg Take 5 mg by 0 Active tablet mouth daily. FENOFIBRATE Take by 0 Active NANOCRYSTALLIZED (TRICOR mouth. ORAL) EZETIMIBE/SIMVASTATIN Take by 0 Active (VYTORIN 10-20 ORAL) mouth. fluorouracil (EFUDEX) 5 % Apply to 40 g 1 04/23/2016 Active creamIndications: AK area(s) 2 (actinic keratosis) (two) times daily. silver sulfADIAZINE Apply to 25 g 1 12/23/2018 Active (SILVADENE) 1 % area(s) 2 creamIndications: Neoplasm (two) times of uncertain behavior of daily. skin documented as of this encounter (statuses as of 04/08/2019) Active Problems Problem Noted Date History of nonmelanoma skin cancer 12/22/2012 documented as of this encounter (statuses as of 04/08/2019) Social History Tobacco Use Types Packs/Day Years Used Date Never Smoker Alcohol Use Drinks/Week oz/Week Comments Yes Sex Assigned at Date Recorded Not on file Job Start Date Occupation Industry Not on file Not on file Not on file Travel History Travel Start Travel End No recent travel history available. documented as of this encounter Last Filed Vital Signs Not on filedocumented in this encounter Plan of Treatment Date Type Specialty Care Team Description 04/28/2019 Office Visit Dermatology Rinku Davis MD [address] [facility] [id number] [place] [address] 06/01/2019 Office Visit Dermatology Rinku Davis MD [id number] [place] [address] Health Maintenance Due Date Last Done Comments DTaP,Tdap,and Td Vaccines (1 - Tdap) 1954 Zoster Recombinant Vaccine (SHINGRIX) (1 of 2) 1993 Medicare Wellness Visit 2008 PNEUMOCOCCAL VACCINES 65+ (1 of 2 - PCV13) 2008 INFLUENZA VACCINE (#1) 2018 documented as of this encounter Results Not on filedocumented in this encounter Insurance Payer Benefit Plan / Subscriber ID Effective Phone Address Type Group Dates MEDICARE MEDICARE PART xxxxxxxxxxx 2008-Pre [phone] [address] Medicare A & B sent [id number] ANNA COLEMAN [phone] [facility] [id number] 1993-Pre [address] Medicare HEALTHCARE HEALTHCARE sent [id number] Supplement MEDICARE [place] SUPPLEMENT ANNA GRUBBS [id number] documented as of this encounter
--- OUTSIDE RECORDS SUMMARY | 2019-06-08 21:10 | XMS REPORT ---
:1945 [facility] Address [address] [place] [address] Care Team Providers Name Role Phone Unavailable [...]
--- OUTSIDE RECORDS SUMMARY | 2019-06-08 21:10 | XMS REPORT | Summary of Care ---
:1945 Author Organization [facility] Address [address] [place] [address] Care Team Providers Name Role Phone Pcp, Patient Does Not Have A Primary Care Provider Reason for Visit Reason Comments Re-evaluation of skin HX of BCC Encounter Details Date Type Department Care Team Description 04/02/2019 Office Visit [facility] Rinku Davis Seborrheic keratoses (Primary Dx); Dermatology, Marlene Cope MD Neoplasm of uncertain behavior of skin; [address] Actinic keratosis; 2660 [facility] [id number] History of nonmelanoma skin cancer [place], [place] Entrance A, [address] [address] [place], [place] [phone] [address] [phone] Allergies No Known Allergiesdocumented as of this encounter (statuses as of 04/07/2019) Medications Medication Sig Dispensed Refills Start Date [...] as of this encounter (statuses as of 04/07/2019) Active Problems Problem Noted Date History of nonmelanoma skin cancer 12/22/2012 documented as of this encounter (statuses as of 04/07/2019) Social History Tobacco Use Types Packs/Day Years [...] Signs Not on filedocumented in this encounter Progress Notes Nikia Capellan MD - 04/02/2019 3:40 PM CSTCC: lesion HPI: Tacho Castillo is a 74 year old male with PMH of NMSC, who presents for routine skin check. Today, hepoints out a few scaly growths on his face and left forearm x months, asymptomatic, no prior treatments. Has a spot on his right posterior shoulder he wants checked. No other skin concerns today. Histories (+) hx skin cancer ROS: (-)=negative (+)=positive Constitutional: (-) pain Integumentary: (-) itching (-) color change (+) growth (-) rash Hematologic/Lymphatic: (-) bleeding Physical Exam General : No acute distress, awake, well developed, well nourished Psychiatric: Normal affect, mood, judgement, and thought content Neuro: Alert, oriented to person, place, situation FACE: Positive EYES: Positive NOSE: Positive EARS: Positive SCALP: Negative NECK: Negative CHEST: Negative ABDOMEN: Negative BACK: Positive RIGHT ARM: See image LEFT ARM: Positive Assessment and Plan 1. Neoplasm of Uncertain Behavior - right shoulder - Ddx: BCC vs mo's - Discussed differential diagnosis and treatment options with patient. Risks discussed (pain, infection, bleeding, scarring). Verbal consent obtained - Area prepped with alcohol. Local anesthesia obtained with 1% lidocaine with epinephrine. 1 cm tangential bx performed. Specimen sent to pathology for analysis, pt to be contacted with results. Hemostasis obtained with AlCl. Vaseline and bandage applied. Wound care discussed 2. Actinic keratoses - Etiology and treatment options discussed, including relation to sun exposure and premalignant potential of lesions. - Verbal consent obtained. - Treated with LN2 destruction x 11 (warned about risk of pigmentation change, erythema, scar and blistering) - Encouraged sun protection - Discussed not to apply Efudex as patient is dealing with post-spinal surgery complications 3. Seborrheic keratoses - Discussed likely etiology, expected course and management options with patient - Benign, reassurance offered 4. 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 BCC on right mid helix s/p ED&C 01/2019 SCC-wd R medial calf s/p ED&C 01/2019 BCC L nasal ala s/p ED&C 02/02/16 BCC of R arm s/p ED&C on 10/26/2015 BCC of R lower cutaneous lip s/p MMS 08/2014 BCC of R nasal root s/p ED&C 01/2014 BCC of R infraoral, recurrent s/p ED&C 01/2013 SCC-wd of L forearm s/p ED&C 09/2012 SCC-wd of R lateral lower arm s/p ED&C 08/2012 BCC of R infraoral s/p ED&C 08/2012 BCC of nasal bridge s/p ED&C 08/2012 BCC of L ear 12/2009 - Well healed scars without evidence of recurrence - Continue regular interval skin exams - Stressed importance of sun protection, regular skin exams RTC 2 months pending path Patient seen by Dr. Davis who agrees with the plan of care. Nikia Capellan MD [facility] Department of Dermatology, PGY-4 04/02/2019 documented in this encounter Plan of Treatment Date Type Specialty Care Team Description 06/01/2019 Office Visit Dermatology Rinku Davis MD [address] [id number] [place], [place] [id number] Health Maintenance Due Date Last Done Comments DTaP,Tdap,and Td Vaccines (1 - Tdap) 1954 Zoster Recombinant Vaccine (SHINGRIX) (1 of 2) 1993 Medicare Wellness Visit 2008 PNEUMOCOCCAL VACCINES 65+ (1 of 2 - PCV13) 2008 INFLUENZA VACCINE (#1) 2018 documented as of this encounter Procedures Procedure Name Priority Date/Time Associated Diagnosis Comments DERMATOPATHOLOGY TISSUE Routine 04/02/2019 Results for this EXAM procedure are in the results section. documented in this encounter Results DERMATOPATHOLOGY TISSUE EXAM (04/02/2019) Specimen Performing Organization Address City/State/Zipcode Phone Number DPTH documented in this encounter Visit Diagnoses Diagnosis Seborrheic keratoses - Primary Neoplasm of uncertain behavior of skin Actinic keratosis History of nonmelanoma skin cancer Personal history of other malignant neoplasm of skin documented in this encounter Insurance Payer Benefit Plan / Subscriber ID Effective Phone Address Type Group Dates MEDICARE MEDICARE PART xxxxxxxxxxx 2008-Pre [phone] [address] Medicare A & B sent [phone] [id number] [place] [phone] [facility] [id number] 1993-Pre [address] Medicare HEALTHCARE HEALTHCARE sent [id number] Supplement MEDICARE [place] SUPPLEMENT [place] GRUBBS [id number] documented as of this encounter
--- OUTSIDE RECORDS SUMMARY | 2019-06-08 21:10 | XMS REPORT | Summary of Care ---
:1945 Author Organization [facility] Address [address] [place] [address] Care Team Providers Name Role Phone Pcp, Patient Does Not Have A Primary Care Provider Reason for Visit Reason Comments Procedure Encounter Details Date Type Department Care Team Description 04/28/2019 Office Visit [facility] Rinku Davis Basal cell carcinoma Dermatology, Marlene Cope MD (BCC) of skin of right [address] upper extremity 2660 [facility] [id number] including shoulder [place], [place] (Primary Dx) Entrance A, [address] [address] [place], [place] [phone] [address] [phone] Allergies No Known Allergiesdocumented as of this encounter (statuses as of 04/28/2019) Medications Medication Sig Dispensed Refills Start Date [...] as of this encounter (statuses as of 04/28/2019) Active Problems Problem Noted Date History of nonmelanoma skin cancer 12/22/2012 documented as of this encounter (statuses as of 04/28/2019) Social History Tobacco Use Types Packs/Day Years [...] on filedocumented in this encounter Progress Notes Ulises Galvan MD - 04/28/2019 11:10 AM CST CC: Treatment of skin cancer HPI Tacho Castillo is a 74 year old male here for treatment of BCC on R shoulder. Bx site has healed well, denies concerns at site of bx. Pt denies new concerns at this time. Pt denies having a pacemaker, defibrillator, or artificial heart valve. Dermpath 04/02/19: RIGHT SHOULDER: BASAL CELL CARCINOMA Review of Systems Constitutional (-) Weight Loss (-) Immunosuppressed (-) Kidney (-) (-) Itching (-) Pain (-) No past medical history on file. (+) NMSC (-) Melanoma No past surgical history on file. Social History Socioeconomic History Marital status: Spouse name: Not on file Number of children: Not on file Years of education: Not on file Highest education level: Not on file Occupational History Not on file Social Needs Financial resource strain: Not on file Food insecurity: Worry: Not on file Inability: Not on file Transportation needs: Medical: Not on file Non-medical: Not on file Tobacco Use Smoking status: Never Smoker Substance and Sexual Activity Alcohol use: Yes Drug use: No Sexual activity: Not on file Lifestyle Physical activity: Days per week: Not on file Minutes per session: Not on file Stress: Not on file Relationships Social connections: Talks on phone: Not on file Gets together: Not on file Attends temple service: Not on file Active member of club or organization: Not on file Attends meetings of clubs or organizations: Not on file Relationship status: Not on file Intimate partner violence: Fear of current or ex partner: Not on file Emotionally abused: Not on file Physically abused: Not on file Forced sexual activity: Not on file Other Topics Concern Not on file Social History Narrative Not on file Physical Exam There were no vitals filed for this visit. General : No acute distress RIGHT ARM: See image Assessment and Plan 1) Biopsy-proven BCC, R shoulder - Lesion size 1.3 cm - Discussed treatment options with patient - ED&C vs excision. Pt and physician agree that ED&C is best treatment option - Risks discussed, including certain scar and possible recurrence. Verbal consent obtained. Time outperformed - Area prepped with alcohol. Local anesthesia obtained with 1% lidocaine & epinephrine. ED&Cx 2 to base. Vaseline & bandage applied. Wound care discussed - Counseled patient about sunscreen/sun avoidance/sun protection. Self-skin exams encouraged. Discussed the ABCDE's of melanoma RTC 3 mo Patient seen with Dr. Davis who agrees with the plan of care. Ulises Galvan MD [facility] Dermatology, PGY-2 04/28/2019 documented in this encounter Plan of Treatment Date Type Specialty Care Team Description 08/06/2019 Office Visit Dermatology Rinku Davis MD [id number] [place] [address] Health Maintenance Due Date Last Done Comments DTaP,Tdap,and Td Vaccines (1 - Tdap) 1954 Zoster Recombinant Vaccine (SHINGRIX) (1 of 2) 1993 Medicare Wellness Visit 2008 PNEUMOCOCCAL VACCINES 65+ (1 of 2 - PCV13) 2008 INFLUENZA VACCINE (#1) 2018 documented as of this encounter Results Not on filedocumented in this encounter Visit Diagnoses Diagnosis Basal cell carcinoma (BCC) of skin of right upper extremity including shoulder - Primary documented in this encounter Insurance Payer Benefit Plan / Subscriber ID Effective Phone Address Type Group Dates MEDICARE MEDICARE PART xxxxxxxxxxx 2008-Pre [phone] [address] Medicare A & B sent [id number] [place] [phone] [facility] [id number] 1993-Pre [address] Medicare HEALTHCARE HEALTHCARE sent [id number] Supplement MEDICARE [place] SUPPLEMENT [place] GRUBBS [id number] documented as of this encounter
--- OUTSIDE RECORDS SUMMARY | 2019-06-08 21:10 | XMS REPORT | Summary of Care ---
:1945 Author Organization [facility] Address [address] [place] [address] Care Team Providers Name Role Phone Pcp, Patient Does Not Have A Primary Care Provider Reason for Visit Reason Comments Re-evaluation of skin HX of BCC Encounter Details Date Type Department Care Team Description 04/02/2019 Office Visit [facility] Rinku Davis Seborrheic keratoses (Primary Dx); Dermatology, Marlene Cope MD Neoplasm of uncertain behavior of skin; [address] Actinic keratosis; 2660 [facility] [id number] History of nonmelanoma skin cancer [place], [place] Entrance A, [address] [address] [place], [place] [phone] [address] [phone] Allergies No Known Allergiesdocumented as of this [...] the plan of care. Nikia Capellan MD [facility] Department of Dermatology, PGY-4 04/02/2019 documented in this encounter Plan of Treatment Date Type Specialty Care Team Description 06/01/2019 Office Visit Dermatology Rinku Davis MD [address] [id number] [place], [place] [address] Health Maintenance Due Date Last Done Comments [...] BOX Medicare A & B sent [id number] [place] [phone] [facility] [id number] 1993-Pre [address] Medicare HEALTHCARE HEALTHCARE sent [id number] Supplement MEDICARE [place] SUPPLEMENT [place]UBBS [id number] documented as of this encounter
--- OUTSIDE RECORDS SUMMARY | 2019-06-08 21:10 | XMS REPORT | Summary of Care ---
:[address] [facility] Address [address] [place] [address] Care Team Providers Name Role Phone Pcp, Patient Does Not Have A Primary Care Provider Reason for Visit Reason Comments Procedure Encounter Details Date Type Department Care Team Description 04/28/2019 [facility] Rinku Davis Basal cell carcinoma Dermatology, Marlene Cope MD (BCC) of skin of right [address] upper extremity 2660 [facility] [id number] including shoulder [place], [place] (Primary Dx) Entrance A, [address] [address] [place], [place] [phone] [address] [phone] Allergies No Known Allergiesdocumented as of this [...] file Gets together: Not on file Attends pentecostal service: Not on file Active member of [...] the plan of care. Ulises Galvan MD [facility] Dermatology, PGY-2 04/28/2019 documented in this encounter Plan of Treatment Date Type Specialty Care Team Description 08/06/2019 Office Visit Dermatology Rinku Davis MD [address] [id number] [place] [address] Health Maintenance Due Date Last [...] BOX Medicare A & B sent [id number] [place] [phone] [facility] [id number] 1993-Pre [address] Medicare HEALTHCARE HEALTHCARE sent [id number] Supplement MEDICARE [place] SUPPLEMENT [place]BS [id number] documented as of this encounter
[2019-06-08 22:03] LABS: Absolute Lymphocytes (CBC) 1.3 K/uL (0.7-4.9); Basophils % 0.4 % (0-1.3); Lymphocytes % 8.3 % (15.3-44.8); MPV 9.8 fL (7.6-11.3); RBC Red Blood Cell Count 5.14 M/uL (4.33-5.43)
[2019-06-08 22:04] LABS: Protime INR 1.16
[2019-06-08 22:21] LABS: Albumin 3.3 g/dL (3.4-5.0); Bilirubin Direct 0.1 mg/dL (0-0.2); Bilirubin Total 0.4 mg/dL (0.2-1.0); Magnesium 2.9 mg/dL (1.8-2.4); Potassium 4.1 mmol/L (3.5-5.1); Protein, Total 8.6 g/dL (6.4-8.2); Troponin (Emerg Dept Use Only) 0.05 ng/mL (0.0-0.045)
--- NOTE | 2019-06-08 23:13 | RAD REPORT ---
EXAM DESCRIPTION: CT - Abdomen Pelvis Wo Contrast - 06/08/2019 10:54 pm CLINICAL HISTORY: no contrast;Abd pain COMPARISON: Abdomen Pelvis W Contrast dated 06/20/2018; Chest Single View dated 06/08/2019 TECHNIQUE: Axial [address] imaging of the abdomen and pelvis was performed without IV contrast. No IV contrast was given because of allergy, abnormal renal function, patient refusal or physician re quest. No oral contrast. All CT scans are performed using dose optimization technique as appropriate and may include automated exposure control or mA/KV adjustment according to patient size. FINDINGS: No acute lung base finding. Patient has a moderately large hiatal hernia with 30% of the s tomach intrathoracic. The liver and spleen show no focal abnormalities. Granulomatous calcifications present in the spleen. Liver has a nodular capsular contour. Cholelithiasis is present. Active gallbladder process not susp ected. No biliary tree dilatation. Significant pancreatic atrophy is present. No pancreatic parenchym al mass or inflammatory stranding seen. No hydronephrosis or suspicious renal mass. No significant adrenal finding. Isodense renal masses an d pyelonephritis cannot be excluded in the absence of IV contrast. Urinary bladder is mostly contract ed limiting detail. No acute bladder abnormality suspected. No acute prostate finding seen. No gastric wall thickening or mass. Assessment of herniated portion of the stomach is inherently limi niranjan. No dilated large or small bowel. Moderate stool volume seen in the left-side of the colon. No ap pendicitis. No active colon process seen. No free air, free fluid or inflammatory stranding. No mass or bulky lymphadenopathy. Bilateral fat filled inguinal hernias are present. L2-4 surgical fusion changes are present. Graft material is present in disc spaces between L2-3 and L 3-4. No hardware fracture seen. Prominent arterial tree calcifications are present. IMPRESSION: No bowel obstruction, free air or surgically emergent finding. Moderately large hiatal hernia present and stable. No active GI process seen. No acute finding identifiable. Nodular contour to the liver could indicate cirrhosis or diffuse hepatic parenchymal disease. Atrophy of the pancreas is present. Cholelithiasis without active gallbladder or biliary tree process Full assessment is limited is the absence of IV contrast.
[2019-06-08] MEDS ORDERED: NA CHLORIDE 0.9% 500 ML ONE (23:25)
[2019-06-08] MEDS ORDERED: MORPHINE 2 MG/ML SYR IV PRN (23:58)
[2019-06-08] MEDS ORDERED: ACETAMINOPHEN 500 MG TAB PO PRN (23:58)
[2019-06-08] MEDS ORDERED: ONDANSETRON 4 MG/2 ML VIAL IV PRN (23:58)
[2019-06-09 00:11] LABS: Urine Blood NEGATIVE (NEG); Urine Glucose 2+ (NEG); Urine Protein 2+ (NEG)
--- NOTE | 2019-06-09 00:15 | ER ---
Nurse's Notes [facility] Name: Tacho Lundy Age: 74 yrs Sex: Male : 1945 Arrival Date: 06/08/2019 Time: 21:09 Bed 7 Private MD: Diagnosis: Dehydration;Weakness Presentation: 06/07 21:17 Chief complaint: Patient states: Weak with no appetite for 5 days. Blood sugar variable ll1 throughout the day. Near syncope event today, so they came in to get checked. Coronavirus screen: Proceed with normal triage. Patient denies a cough. Patient denies shortness of breath or difficulty breathing. Patient denies measured and/or subjective temperature greater than 100.4F prior to today's visit. Patient denies travel on a cruise ship or to a country the [facility] currently lists as an affected area. Patient denies contact with known and/or suspected case of COVID-19. Ebola Screen: Patient denies travel to an Ebola-affected area in the 21 days before illness onset. Initial Sepsis Screen: Does the patient meet any 2 criteria? HR > 90 bpm. No. Patient's initial sepsis screen is negative. Does the patient have a suspected source of infection? No. Patient's initial sepsis screen is negative. Risk Assessment: Do you want to hurt yourself or someone else? Patient reports no desire to harm self or others. Onset of symptoms was June 03, 2019. 21:17 Method Of Arrival: Wheelchair ll1 21:17 Acuity: CORRY 3 ll1 Historical: - Allergies: 21:19 No Known Allergies; ll1 - PMHx: 21:19 Diabetes - NIDDM; Hypertension; Chronic pain; ll1 - PSHx: 21:19 back x 3; ll1 - Immunization history:: Adult Immunizations up to date. - Social history:: Patient/guardian denies using alcohol, street drugs, tobacco products, Smoking status: unknown. Screenin:33 Abuse screen: Denies threats or abuse. Nutritional screening: No deficits noted. jd3 Tuberculosis screening: No symptoms or risk factors identified. Fall Risk Ambulatory Aid- None/Bed Rest/Nurse Assist (0 pts). Gait- Normal/Bed Rest/Wheelchair (0 pts) Mental Status- Oriented to own ability (0 pts). Total Horton Fall Scale indicates No Risk (0-24 pts). Assessment: 21:31 General: Appears in no apparent distress. uncomfortable, Behavior is calm, cooperative, jd3 appropriate for age, Reports fatigue for >3 days. Pain: Complains of pain in back Quality of pain is described as aching. Neuro: Level of Consciousness is awake, alert, obeys commands, Oriented to person, place, time, situation. Cardiovascular: Denies chest pain, Heart tones S1 S2 present Capillary refill < 3 seconds Patient's skin is warm and dry. Respiratory: Airway is patent Respiratory effort is even, unlabored, Respiratory pattern is regular, symmetrical, Breath sounds are clear bilaterally. Denies cough, shortness of breath. GI: No signs and/or symptoms were reported involving the gastrointestinal system. Reports decrease in appetite Patient currently denies constipation, diarrhea, nausea, vomiting. : No signs and/or symptoms were reported regarding the genitourinary system. EENT: No signs and/or symptoms were reported regarding the EENT system. Derm: Skin is intact, Skin is dry, Skin is normal, Skin temperature is warm. Musculoskeletal: Circulation, motion, and sensation intact. Range of motion: intact in all extremities. 22:13 Reassessment: Patient appears in no apparent distress at this time. No changes from jd3 previously documented assessment. Patient and/or family updated on plan of care and expected duration. Pain level reassessed. Patient is alert, oriented x 3, equal unlabored respirations, skin warm/dry/pink. 23:24 Reassessment: Patient appears in no apparent distress at this time. Patient and/or jd3 family updated on plan of care and expected duration. Pain level reassessed. Patient is alert, oriented x 3, equal unlabored respirations, skin warm/dry/pink. pt reporting continued feeling of fatigue. pt medicated as ordered, IV flushes well with dressing intact, no redness or swelling noted. 06/08 00:32 Reassessment: Patient appears in no apparent distress at this time. Patient and/or jd3 family updated on plan of care and expected duration. Pain level reassessed. Patient is alert, oriented x 3, equal unlabored respirations, skin warm/dry/pink. report given to Gisella WHITE. Vital Signs: 06/07 21:17 BP 113 / 52; Pulse 91; Resp 18; Temp 98.3; Pulse Ox 96% on R/A; Pain 0/10; ll1 23:25 BP 104 / 64 Supine; Pulse 91; jd3 23:26 BP 95 / 53 Sitting; Pulse 91; jd3 23:27 BP 102 / 65 Standing; Pulse 98; Resp 18 S; Pulse Ox 99% on R/A; jd3 06/08 00:33 BP 112 / 63; Pulse 78; Resp 17 S; Pulse Ox 97% on R/A; jd3 ED Course: 06/07 21:09 Patient arrived in ED. cl3 21:10 Clarissa Rosenthal FNP-C is PHCP. kb 21:10 Alexander Hoyos MD is Attending Physician. kb 21:19 Triage completed. ll1 21:20 Arm band placed on Patient placed in an exam room, on a stretcher. ll1 21:22 Prem Patel RN is Primary Nurse. jd3 21:34 Patient has correct armband on for positive identification. Placed in gown. Bed in low jd3 position. Call light in reach. Side rails up X 1. Adult w/ patient. equipment monitor phototypesetting on. Pulse ox on. NIBP on. 21:45 XRAY Chest (1 view) In Process Unspecified. EDMS 21:50 Inserted saline lock: 22 gauge in left wrist, using aseptic technique. Blood collected. jd3 placed by [facility] TECH. 22:54 CT Abd/Pelvis - Without Contrast In Process Unspecified. EDMS 06/08 00:14 Janet Ashby MD is Hospitalizing Provider. kb 00:33 No provider procedures requiring assistance completed. Patient admitted, IV remains in jd3 place. Administered Medications: 06/07 23:23 Drug: NS 0.9% 500 ml Route: IV; Rate: bolus; Site: left wrist; jd3 06/08 00:20 Follow up: Response: No adverse reaction; IV Status: Completed infusion; IV Intake: jd3 500ml Intake: 00:20 IV: 500ml; Total: 500ml. j Outcome: 00:14 Decision to Hospitalize by Provider. kb 00:33 Admitted to Med/surg accompanied by tech, via stretcher, room 220, Report called to j Gisella WHITE 00:33 Condition: stable 00:33 Instructed on the need for admit, Demonstrated understanding of instructions. 01:17 Patient left the ED. ea Signatures: Dispatcher [employer] Clarissa Warner, WELDER FITTER HELPER-C WELDER FITTER HELPER-Gisella Mars, RN RN Prem Meza RN RN jd3 Sim Garcia cl3 Casey Garcia RN RN ll1
--- NOTE | 2019-06-09 00:15 | EDPHYS ---
Physician Documentation [facility] Name: Tacho Lundy Age: 74 yrs Sex: Male : 1945 Arrival Date: 06/08/2019 Time: 21:09 Bed 7 Private MD: ED Physician Alexander Hoyos HPI: 06/08 00:17 This 74 yrs old Male presents to ER via Wheelchair with complaints of High kb Blood Sugar, weakness. 00:21 The patient presents with generalized weakness. Onset: The symptoms/episode kb began/occurred 5 day(s) ago. Context: occurred at home. Modifying factors: The symptoms are alleviated by nothing, the symptoms are aggravated by nothing. Associated signs and symptoms: Pertinent positives: nausea, vomiting, decreased appetite, near-syncope. Severity of symptoms: At their worst the symptoms were moderate in the emergency department the symptoms are unchanged. Patient's baseline: Neuro: alert and fully oriented, Motor: no deficits, Ambulation: walks without assistance, Speech: normal. The patient has not experienced similar symptoms in the past. The patient has not recently seen a physician. Pt reports he has had decreased appetite and weakness for 5 days. States he has intermittent nausea and vomiting that he sees Dr Augustine for. 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 Pt reports he hadn't gotten out of bed all day because he just hasn't felt well. Historical: - Allergies: 06/07 21:19 No Known Allergies; ll1 - PMHx: 21:19 Diabetes - NIDDM; Hypertension; Chronic pain; ll1 - PSHx: 21:19 back x 3; ll1 - Immunization history:: Adult Immunizations up to date. - Social history:: Patient/guardian denies using alcohol, street drugs, tobacco products, Smoking status: unknown. ROS: 06/08 00:16 Constitutional: Negative for fever, chills, and weight loss, Neck: Negative for injury, kb pain, and swelling, Cardiovascular: Negative for chest pain, palpitations, and edema, Respiratory: Negative for shortness of breath, cough, wheezing, and pleuritic chest pain, Back: Negative for injury and pain, MS/Extremity: Negative for injury and deformity, Skin: Negative for injury, rash, and discoloration. Abdomen/GI: Positive for nausea and vomiting, decreased appetite. Neuro: Positive for weakness, Negative for altered mental status, dizziness, gait disturbance, headache, hearing loss, loss of consciousness, numbness, seizure activity, speech changes, syncope, near syncope, tingling, tinnitus, tremor, visual changes. Exam: 00:16 Constitutional: This is a well developed, well nourished patient who is awake, alert, kb and in no acute distress. Head/Face: Normocephalic, atraumatic. Chest/axilla: Normal chest wall appearance and motion. Nontender with no deformity. No lesions are appreciated. Cardiovascular: Regular rate and rhythm with a normal S1 and S2. No gallops, murmurs, or rubs. Normal PMI, no JVD. No pulse deficits. Respiratory: Lungs have equal breath sounds bilaterally, clear to auscultation and percussion. No rales, rhonchi or wheezes noted. No increased work of breathing, no retractions or nasal flaring. Skin: Warm, dry with normal turgor. Normal color with no rashes, no lesions, and no evidence of cellulitis. MS/ Extremity: Pulses equal, no cyanosis. Neurovascular intact. Full, normal range of motion. Neuro: Awake and alert, GCS 15, oriented to person, place, time, and situation. Cranial nerves II-XII grossly intact. Motor strength 5/5 in all extremities. Sensory grossly intact. Cerebellar exam normal. Normal gait. 00:16 Abdomen/GI: Inspection: abdomen appears normal, Bowel sounds: normal, in all quadrants, Palpation: soft, in all quadrants, mild abdominal tenderness, in the right lower quadrant and left lower quadrant. Vital Signs: 06/07 21:17 BP 113 / 52; Pulse 91; Resp 18; Temp 98.3; Pulse Ox 96% on R/A; Pain 0/10; ll1 23:25 BP 104 / 64 Supine; Pulse 91; jd3 23:26 BP 95 / 53 Sitting; Pulse 91; jd3 23:27 BP 102 / 65 Standing; Pulse 98; Resp 18 S; Pulse Ox 99% on R/A; jd3 06/08 00:33 BP 112 / 63; Pulse 78; Resp 17 S; Pulse Ox 97% on R/A; jd3 MDM: 06/07 21:11 Patient medically screened. kb 23:54 Data reviewed: vital signs, nurses notes. Data interpreted: Pulse oximetry: on room air kb is 99 %. Interpretation: normal. Counseling: I had a detailed discussion with the patient and/or guardian regarding: the historical points, exam findings, and any diagnostic results supporting the discharge/admit diagnosis, lab results, radiology results, the need for outpatient follow up, a family practitioner, to return to the emergency department if symptoms worsen or persist or if there are any questions or concerns that arise at home. 06/07 21:16 Order name: Basic Metabolic Panel; Complete Time: 22:31 kb 06/07 21:16 Order name: CBC with Diff; Complete Time: 22:09 kb 06/07 21:16 Order name: LFT's; Complete Time: 22:31 kb 06/07 21:16 Order name: Magnesium; Complete Time: 22:31 kb 06/07 21:16 Order name: NT PRO-BNP; Complete Time: 22:31 kb 06/07 21:16 Order name: PT-INR; Complete Time: 22:09 kb 06/07 21:16 Order name: Troponin (emerg Dept Use Only); Complete Time: 22:31 kb 06/07 21:16 Order name: Hartley Screen Profile; Complete Time: 22:29 kb 06/07 23:53 Order name: Urine Dipstick--Ancillary (enter results); Complete Time: 00:13 mw2 06/07 23:53 Order name: Urine Microscopic Only; Complete Time: 00:42 kb 06/08 00:09 Order name: CBC with Automated Diff EDMS 06/08 00:09 Order name: CBC with Automated Diff EDMS 06/08 00:09 Order name: Comprehensive Metabolic Panel EDMS 06/08 00:09 Order name: Comprehensive Metabolic Panel EDMS 06/07 21:16 Order name: XRAY Chest (1 view) kb 06/07 21:16 Order name: EKG; Complete Time: 21:18 kb 06/07 22:31 Order name: CT Abd/Pelvis - Without Contrast; Complete Time: 23:16 kb 06/08 00:09 Order name: CONS Pharmacy Consult EDMS 06/08 00:09 Order name: Renal EDMS 06/08 00:09 Order name: Creatine Phosphokinase EDMS 06/08 00:09 Order name: Creatine Phosphokinase EDMS 06/08 00:09 Order name: Protime (+INR) EDNM 06/08 00:09 Order name: Protime (+INR) EDNM 06/08 00:09 Order name: PTT, Activated Partial Thromb EDNM 06/08 00:09 Order name: PTT, Activated Partial Thromb EDNM 06/08 00:09 Order name: Troponin I EDNM 06/08 00:09 Order name: Troponin I [facility] 06/08 00:12 Order name: Urinalysis W/Microscopic EDNM 06/08 00:32 Order name: Urine Culture EDNM 06/07 21:16 Order name: Cardiac monitoring; Complete Time: 21:22 kb 06/07 21:16 Order name: EKG - Nurse/Tech; Complete Time: 21:31 kb 06/07 21:16 Order name: IV Saline Lock; Complete Time: 21:31 kb 06/07 21:16 Order name: Labs collected and sent; Complete Time: 21:34 kb 06/07 21:16 Order name: O2 Per Protocol; Complete Time: 21:22 kb 06/07 21:16 Order name: O2 Sat Monitoring; Complete Time: 21:22 kb 06/07 22:09 Order name: Urine Dipstick-Ancillary (obtain specimen); Complete Time: 23:51 kb 06/07 23:08 Order name: Orthostatics; Complete Time: 23:19 kb 06/08 00:12 Order name: Physical Therapy Consult [facility] 06/08 00:14 Order name: CONS Physician Consult [facility] Administered Medications: 23:23 Drug: NS 0.9% 500 ml Route: IV; Rate: bolus; Site: left wrist; jd3 06/08 00:20 Follow up: Response: No adverse reaction; IV Status: Completed infusion; IV Intake: jd3 500ml Disposition: 05:49 Co-signature as Attending Physician, Alexander Hoyos MD I agree with the assessment and tw4 plan of care. Disposition: 06/09/19 00:14 Hospitalization ordered by Janet Ashby for Observation. Preliminary diagnosis are Dehydration, Weakness. - Bed requested for Telemetry/MedSurg (observation). - Status is Observation. ea - Condition is Stable. - Problem is new. - Symptoms are unchanged. Signatures: Dispatcher [employer] EDNM Clarissa Rosenthal, FRITZ-C FRITZ-Rosa Morrow, RN RN cg Gisella Medina, RN RN ea Prem Patel, RN RN jd3 Alexander Hoyos MD MD tw4 Casey Garcia, RN RN ll1 Corrections: (The following items were deleted from the chart) 00:20 00:14 Hospitalization Ordered by Janet Ashby MD for Observation. Preliminary cg diagnosis is Dehydration; Weakness. Bed requested for Telemetry/MedSurg (observation). Status is Observation. Condition is Stable. Problem is new. Symptoms are unchanged. kb 01:17 00:20 06/09/2019 00:14 Hospitalization Ordered by Janet Ashby MD for Observation. ea Preliminary diagnosis is Dehydration; Weakness. Bed requested for Telemetry/MedSurg (observation). Status is Observation. Condition is Stable. Problem is new. Symptoms are unchanged. cg
[2019-06-09 00:30] LABS: Urine Bacteria <20 /HPF (NONE SEEN); Urine Culture Reflex Order REFLEXED; Urine RBC NONE SEEN /HPF (NONE SEEN); Urine Yeast MANY (NONE SEEN); Urine Yeast with Hyphae PRESENT
[2019-06-09 01:27] VITALS: BMI 23.5
[2019-06-09] MEDS: NA CHLORIDE 0.9% 1,000 ML IV SCH ×3 (01:56→18:35)
--- NOTE | 2019-06-09 07:51 | EKG ---
Test Date: 2019-06-08 Test Time: 21:30:43 Toolmaker Helper: NICHOLAS MEASUREMENT RESULTS: Intervals: Rate: 88 NM: 206 QRSD: 142 QT: 406 QTc: 491 Rodessa: P: NM: 206 QRS: 258 T: 52 INTERPRETIVE STATEMENTS: Normal sinus rhythm Right bundle branch block Abnormal ECG Compared to ECG 05/23/2018 00:10:54 Atrial fibrillation no longer present Myocardial infarct finding no longer present Electronically Signed On 06-09-19 07:32:58 CDT by Nba Dumont
[2019-06-09 08:01] LABS: Albumin 2.8 g/dL (3.4-5.0); Bilirubin Total 0.3 mg/dL (0.2-1.0); Potassium 4.1 mmol/L (3.5-5.1); Protein, Total 7.5 g/dL (6.4-8.2); Troponin I 0.05 ng/mL (0.0-0.045)
--- NOTE | 2019-06-09 08:09 | RAD REPORT ---
EXAM DESCRIPTION: RAD - Chest Single View - 06/08/2019 9:45 pm CLINICAL HISTORY: COUGH COMPARISON: December 2018 Two view chest TECHNIQUE: AP portable chest image was obtained 06/08/2019 9:45 pm . FINDINGS: No focal infiltrate changes identified. Lung volumes are low. Right costophrenic angle danyelle nting is present. There is a vague 8-10 mm nodular focus in the right midlung field. This is new from the prior study and warrants re-evaluation with follow-up two view chest examination. No failure or volume overload. Moderately large hiatal hernia is noted. This has been previously seen. Heart and vasculature are nor mal. No measurable pleural effusion and no pneumothorax. No acute bony abnormality seen. No acute aor tic findings suspected. IMPRESSION: No failure, infiltrate or acute cardiopulmonary finding. Right costophrenic angle blunting is present but favored to be shallow inspiration affects rather jean n pleural effusion. Small nodule in the right midlung field needs follow-up with two view chest imaging or CT chest imagi ng to determine if this is a true finding.
[2019-06-09 08:20] LABS: Protime INR 1.13
[2019-06-09 08:35] LABS: Absolute Lymphocytes (CBC) 1.2 K/uL (0.7-4.9); Basophils % 0.5 % (0-1.3); Hematocrit 32.7 % (39.6-49.0); Lymphocytes % 11.3 % (15.3-44.8); MPV 9.7 fL (7.6-11.3)
[2019-06-09] MEDS ORDERED: CEFTRIAXONE 1 GM/NS 50 ML 1 GM/50 ML BAG IV SCH (09:00)
[2019-06-09] MEDS ORDERED: BISACODYL E.C. 5 MG TAB PO ONE (09:09)
[2019-06-09] MEDS: CEFTRIAXONE/SWI 1gm 1 GM/10 ML SYR IV SCH (09:24)
[2019-06-09] MEDS ORDERED: D50W 25 GM/50 ML SYRINGE/VIAL IV PRN ×2 (09:40→16:41)
[2019-06-09] MEDS ORDERED: GLUCAGON 1 MG/VIAL IM PRN ×2 (09:40→16:41)
[2019-06-09] MEDS ORDERED: FLEET ENEMA ADULT PR ONE (12:30)
[2019-06-09] MEDS: INSULIN -REGULAR HUMAN 50 UNIT/0.5 ML ML SQ SCH ×3 (12:47→20:40)
--- NOTE | 2019-06-09 15:42 | P.CNS ---
Date of Consult: 06/09/19 Reason for Consult: RACHEL Requesting Physician: Janet Ashby Chief Complaint: Weakness History of Present Illness: 74 yo WM CKD, HTN presented to the ER with 5 days of moderate, progressive weakness with associated nausea and anorexia. Found to have RACHEL in the ER. He was not able to give a urine sample last night. No NSAIDs. +Anxiety +Insomnia +Persistent anorexia. 00:17 This 74 yrs old Male presents to ER via Wheelchair with complaints of High kb Blood Sugar, weakness. 00:21 The patient presents with generalized weakness. Onset: The symptoms/episode kb began/occurred 5 day(s) ago. Context: occurred at home. Modifying factors: The symptoms are alleviated by nothing, the symptoms are aggravated by nothing. Associated signs and symptoms: Pertinent positives: nausea, vomiting, decreased appetite, near- syncope. Severity of symptoms: At their worst the symptoms were moderate in the emergency department the symptoms are unchanged. Patient's baseline: Neuro: alert and fully oriented, Motor: no deficits, Ambulation: walks without assistance, Speech: normal. The patient has not experienced similar symptoms in the past. The patient has not recently seen a physician. Pt reports he has had decreased appetite and weakness for 5 days. States he has intermittent nausea and vomiting that he sees Dr Augustine for. 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 Pt reports he hadn't gotten out of bed all day because he just hasn't felt well. Allergies vancomycin Allergy (Verified 05/27/18 10:36) Itching/Hives/Rash Home medications list reviewed: Yes Home Medications: Ezetimibe [Zetia*] 10 mg PO DAILY 05/23/18 Magnesium Oxide [Mag 0X*] 400 mg PO BID 05/23/18 Pantoprazole Sodium [Protonix] 40 mg PO DAILY 05/23/18 Furosemide [Lasix] 20 mg PO DAILY 06/26/18 Simvastatin 40 mg PO BEDTIME 06/26/18 Aspirin 81 mg PO DAILY 06/09/19 Carvedilol [Coreg] 12.5 mg PO BID 06/09/19 Enalapril Maleate [Vasotec] 40 mg PO DAILY 06/09/19 Esomeprazole Mag Trihydrate [Nexium] 20 mg PO DAILY 06/09/19 Insulin Detemir [Levemir] 70 units SQ DAILY 06/09/19 - Past Medical/Surgical History Diabetic: Yes -: CAD s/p Stent -: Arthritis -: HTN -: DM -: Skin cancer -: CABG -: Laminectomy -: Back sx -: Skin cancer sx - Family History Father Medical History: Heart disease Mother Medical History: Heart disease - Social History Smoking Status: Former smoker Alcohol use: Yes CD- Drugs: No Caffeine use: Yes Place of Residence: Home Review of Systems 10-point ROS is otherwise unremarkable General: Weakness, Malaise Gastrointestinal: Nausea Neurological: Weakness Physical Examination Temp Pulse Resp BP Pulse Ox 97.4 F 85 18 136/95 H 96 06/09/19 12:00 06/09/19 12:00 06/09/19 12:00 06/09/19 12:00 06/09/19 12:00 General: Oriented x3 HEENT: Atraumatic Neck: Supple Respiratory: Clear to auscultation bilaterally Cardiovascular: No edema, Regular rate/rhythm Gastrointestinal: Soft and benign, Non-distended Musculoskeletal: No clubbing, No contractures Integumentary: No rashes, No cyanosis Neurological: Normal speech Laboratory Data (last 24 hrs) 06/08/19 21:48: PT 13.6 H, INR 1.16 06/08/19 21:48: WBC 15.7 H, Hgb 11.6 L, Hct 38.0 L, Plt Count 289 06/08/19 21:48: Sodium 135 L, Potassium 4.1, BUN 33 H, Creatinine 2.31 H, Glucose 215 H, Magnesium 2.9 H D, Total Bilirubin 0.4, AST 28, ALT 28, Alkaline Phosphatase 259 H Imagings Data: EXAM DESCRIPTION: CT - Abdomen Pelvis Wo Contrast - 06/08/2019 10:54 pm CLINICAL HISTORY: no contrast;Abd pain COMPARISON: Abdomen Pelvis W Contrast dated 06/20/2018; Chest Single View dated 06/08/2019 TECHNIQUE: Axial [address] imaging of the abdomen and pelvis was performed without IV contrast. No IV contrast was given because of allergy, abnormal renal function, patient refusal or physician request. No oral contrast. All CT scans are performed using dose optimization technique as appropriate and may include automated exposure control or mA/KV adjustment according to patient size. FINDINGS: No acute lung base finding. Patient has a moderately large hiatal hernia with 30% of the stomach intrathoracic. The liver and spleen show no focal abnormalities. Granulomatous calcifications present in the spleen. Liver has a nodular capsular contour. Cholelithiasis is present. Active gallbladder process not suspected. No biliary tree dilatation. Significant pancreatic atrophy is present. No pancreatic parenchymal mass or inflammatory stranding seen. No hydronephrosis or suspicious renal mass. No significant adrenal finding. Isodense renal masses and pyelonephritis cannot be excluded in the absence of IV contrast. Urinary bladder is mostly contracted limiting detail. No acute bladder abnormality suspected. No acute prostate finding seen. No gastric wall thickening or mass. Assessment of herniated portion of the stomach is inherently limited. No dilated large or small bowel. Moderate stool volume seen in the left-side of the colon. No appendicitis. No active colon process seen. No free air, free fluid or inflammatory stranding. No mass or bulky lymphadenopathy. Bilateral fat filled inguinal hernias are present. L2-4 surgical fusion changes are present. Graft material is present in disc spaces between L2-3 and L3-4. No hardware fracture seen. Prominent arterial tree calcifications are present. IMPRESSION: No bowel obstruction, free air or surgically emergent finding. EXAM DESCRIPTION: RAD - Chest Single View - 06/08/2019 9:45 pm CLINICAL HISTORY: COUGH COMPARISON: December 2018 Two view chest TECHNIQUE: AP portable chest image was obtained 06/08/2019 9:45 pm . FINDINGS: No focal infiltrate changes identified. Lung volumes are low. Right costophrenic angle blunting is present. There is a vague 8-10 mm nodular focus in the right midlung field. This is new from the prior study and warrants re- evaluation with follow-up two view chest examination. No failure or volume overload. Moderately large hiatal hernia is noted. This has been previously seen. Heart and vasculature are normal. No measurable pleural effusion and no pneumothorax. No acute bony abnormality seen. No acute aortic findings suspected. IMPRESSION: No failure, infiltrate or acute cardiopulmonary finding. Right costophrenic angle blunting is present but favored to be shallow inspiration affects rather than pleural effusion. Small nodule in the right midlung field needs follow-up with two view chest imaging or CT chest imaging to determine if this is a true finding. Conclusions/Impression: A/ RACHEL likely due to hypovolemia. Possible ATN? Hyponatremia. CKD with proteinuria. HTN with CKD. DM II with CKD. Moderate malnutrition. Anemia in chronic illness. Microcytosis. P/ Continue current POC and Medications. Increase IVF 100ml/hr. Continue Rocephin for possible cystitis. Start Ativan for anxiety and insomnia. No NSAIDs. Check iron. AM labs. Daily weight. Thank you kindly for the consultation.
[2019-06-09] MEDS: DOCUSATE NA 100 MG CAP PO SCH (20:38)
[2019-06-09] MEDS: LORAZEPAM 0.5 MG TABLET PO PRN (20:38)
[2019-06-09] MEDS: INSULIN GLARGINE 100 UNITS/ML SQ SCH (20:41)
[2019-06-09] MEDS: GLUCERNA SHAKE 237 ML CAN PO SCH (22:06)
[2019-06-10] MEDS: carvediloL 12.5 MG TAB PO SCH ×3 (01:04→21:04)
[2019-06-10] MEDS: NA CHLORIDE 0.9% 1,000 ML IV SCH ×2 (01:09→10:34)
[2019-06-10 04:58] LABS: Urine Appearance CLEAR; Urine Bilirubin NEGATIVE (NEG); Urine Blood NEGATIVE (NEG); Urine Color YELLOW; Urine Glucose 3+ (NEG); Urine Protein 1+ (NEG); Urine Specific Gravity 1.025 (1.005-1.030); Urine Urobilinogen 0.2 mg/dL (0.2-1.0)
[2019-06-10 05:17] LABS: UR MICROALBUMIN 19.1 mg/dL (< 1.9)
[2019-06-10 05:20] LABS: Urine Bacteria <20 /HPF (NONE SEEN); Urine Culture Reflex Order REFLEXED; Urine RBC <5 /HPF (NONE SEEN); Urine Yeast FEW (NONE SEEN); Urine Yeast with Hyphae PRESENT
[2019-06-10] MEDS ORDERED: PANTOPRAZOLE 40MG TABLET PO SCH (06:00)
[2019-06-10 06:02] LABS: Absolute Lymphocytes (CBC) 1.2 K/uL (0.7-4.9); Basophils % 0.6 % (0-1.3); Hematocrit 29.1 % (39.6-49.0); Lymphocytes % 16.1 % (15.3-44.8); MPV 9.7 fL (7.6-11.3); RBC Red Blood Cell Count 3.99 M/uL (4.33-5.43)
[2019-06-10] MEDS: PANTOPRAZOLE 40MG TABLET PO SCH (06:03)
[2019-06-10 06:55] LABS: Albumin 2.4 g/dL (3.4-5.0); Bilirubin Total 0.3 mg/dL (0.2-1.0); Magnesium 2.4 mg/dL (1.8-2.4); Phosphorus 3.9 mg/dL (2.5-4.9); Protein, Total 6.2 g/dL (6.4-8.2); Uric Acid 9.7 mg/dL (3.5-7.2)
[2019-06-10] MEDS: INSULIN GLARGINE 100 UNITS/ML SQ SCH ×2 (09:00→10:31)
[2019-06-10] MEDS ORDERED: FUROSEMIDE 20 MG TABLET PO SCH (09:00)
[2019-06-10] MEDS ORDERED: ENALAPRIL 10 MG TAB PO SCH (09:00)
[2019-06-10] MEDS: DOCUSATE NA 100 MG CAP PO SCH ×2 (10:29→21:00)
[2019-06-10] MEDS: MAGNESIUM OXIDE 400 MG TAB PO SCH ×2 (10:29→21:05)
[2019-06-10] MEDS: ASPIRIN 81 MG CHEWABLE TABLET PO SCH (10:29)
[2019-06-10] MEDS: EZETIMIBE 10 MG TAB PO SCH (10:30)
[2019-06-10] MEDS: INSULIN -REGULAR HUMAN 50 UNIT/0.5 ML ML SQ SCH ×4 (10:30→21:05)
[2019-06-10] MEDS: GLUCERNA SHAKE 237 ML CAN PO SCH ×3 (10:31→21:07)
[2019-06-10] MEDS: CEFTRIAXONE/SWI 1gm 1 GM/10 ML SYR IV SCH (10:33)
--- NOTE | 2019-06-10 12:00 | P.HP ---
Certification for Inpatient Patient admitted to: Inpatient With expected LOS: >2 Midnights Patient will require the following post-hospital care: None Practitioner: I am a practitioner with admitting privileges, knowledge of patient current condition, hospital course, and medical plan of care. Services: Services provided to patient in accordance with Admission requirements found in Title 42 Section 412.3 of the Code of Federal Regulations Patient History Date of Service: 06/09/19 Reason for admission: Weakness History of Present Illness: Pt is a 74yo who was At home feeling weak. He has not been himself for the last few weeks. He has been eating less and he states that he has very little strength. Food does not taste good to him any longer. He has been eating very little at home and he has been having a hard time getting around. His family brought him into the hospital to be evaluated. In the emergency room he was found have some acute renal insufficiency. He appeared to be very dehydrated and his low albumin indicated poor nutritional status. He has been followed by GI and had a EGD which she says he had some stenosis. In the ER patient had a urinalysis which indicated infection along with a yeast infection. Patient will need admission for further evaluation at this time. Allergies vancomycin Allergy (Verified 05/27/18 10:36) Itching/Hives/Rash Home Medications: Ezetimibe [Zetia*] 10 mg PO DAILY 05/23/18 Magnesium Oxide [Mag 0X*] 400 mg PO BID 05/23/18 Pantoprazole Sodium [Protonix] 40 mg PO DAILY 05/23/18 Furosemide [Lasix] 20 mg PO DAILY 06/26/18 Simvastatin 40 mg PO BEDTIME 06/26/18 Aspirin 81 mg PO DAILY 06/09/19 Carvedilol [Coreg] 12.5 mg PO BID 06/09/19 Enalapril Maleate [Vasotec] 40 mg PO DAILY 06/09/19 Esomeprazole Mag Trihydrate [Nexium] 20 mg PO DAILY 06/09/19 Insulin Detemir [Levemir] 70 units SQ DAILY 06/09/19 - Past Medical/Surgical History Has patient received pneumonia vaccine in the past: Yes Diabetic: Yes -: CAD s/p Stent -: Arthritis -: HTN -: DM -: Skin cancer -: CABG -: Laminectomy -: Back sx -: Skin cancer sx - Family History Father Medical History: Heart disease Mother Medical History: Heart disease - Social History Smoking Status: Former smoker Alcohol use: Yes CD- Drugs: No Caffeine use: Yes Place of Residence: Home Review of Systems 10-point ROS is otherwise unremarkable Physical Examination - Vital Signs Temperature: 97.4 F Blood Pressure: 169/75 Pulse: 90 Respirations: 20 Pulse Ox (%): 97 - Physical Exam General: Alert, In no apparent distress, Oriented x3 HEENT: Atraumatic, PERRLA, Mucous membr. moist/pink, EOMI, Sclerae nonicteric Neck: Supple, 2+ carotid pulse no bruit, No LAD, Without JVD or thyroid ab normality Respiratory: Clear to auscultation bilaterally, Normal air movement Cardiovascular: Regular rate/rhythm, Normal S1 S2, No murmurs Gastrointestinal: Normal bowel sounds, Soft and benign, Non-distended, No tenderness Musculoskeletal: No clubbing, No swelling, No tenderness Integumentary: No rashes Neurological: Normal speech, Sensation intact, Cranial nerves 3-12 intact, Abnormal gait, Abnormal strength Lymphatics: No axilla or inguinal lymphadenopathy Assessment & Plan - Problems (Diagnosis) (1) Generalized weakness Current Visit: Yes Status: Acute (2) Urinary tract infection Current Visit: Yes Status: Acute (3) Uremia Current Visit: Yes Status: Acute (4) Benign prostate hyperplasia Current Visit: No Status: Acute (5) CAD (coronary artery disease) Current Visit: No Status: Acute (6) Depression Current Visit: No Status: Acute (7) Diabetes Current Visit: No Status: Acute (8) GERD (gastroesophageal reflux disease) Current Visit: No Status: Acute (9) Hx of heart artery stent Current Visit: No Status: Acute (10) Hyperlipidemia Current Visit: No Status: Acute (11) Hypertension Current Visit: No Status: Acute - Plan Plan: 1. Aggressive IV hydration 2. Check cortisol levels and thyroid studies for myopathy 3. Appetite stimulant 4. Monitor renal function and Nephrology consultation 5. Out of bed and ambulate 6. Physical therapy evaluation and may need arrangements for home health 7. IV antibiotics and antifungal 8. GI and DVT prophylaxis Discharge Plan: Home Plan to discharge in: Greater than 2 days - Advance Directives Does patient have a Living Will: Yes Does patient have a Durable POA for Healthcare: Yes - Code Status/Comfort Care Code Status Assessed: Yes Code Status: Full Code Critical Care: No Time Spent Managing PTS Care (In Minutes): 45
[2019-06-10] MEDS ORDERED: MEGESTROL 400 MG/10 ML UCUP PO SCH (12:20)
--- NOTE | 2019-06-10 13:03 | PN ---
Date of Progress Note: 06/10/2019 Subjective: Patient is seen and examined. He states that he is doing better. However, he feels herb y nauseous and feels like he is going to throw up. He continues to have some dysphagia. No other ov ernight events were noted. Physical Examination: Vital Signs: Showing temperature of 97.6, pulse rate of 92, respiratory rate of 18, and blood pressu re of 134/63. General: He appears in no acute distress. HEENT: Atraumatic head. Lungs: Clear to auscultation. Abdomen: Soft and nontender. Extremities: Show no evidence of edema. Laboratory Data: At this time is showing creatinine improving to 1.7 and other electrolytes are stab le. CBC is showing hemoglobin of 8.9, hematocrit of 29.1, and platelet count of 160. His urinalysis showed glycosuria, but otherwise unremarkable. Current Medications: Enalapril 40 mg daily, carvedilol 12.5 mg b.i.d., Lasix 20 mg daily, insulin La ntus and regular insulin sliding scale, magnesium 400 mg b.i.d., and pantoprazole 40 mg daily. Impression: 1.Acute kidney injury secondary to hypovolemia and acute tubular necrosis, improving. 2.Hyponatremia, improving. 3.Underlying chronic kidney disease with glycosuria and proteinuria. 4.Type 2 diabetes with chronic kidney disease. 5.Dysphagia, etiology unclear. Patient has been following up with Dr. Augustine. May need to get Dr. Me mandel involved for further evaluation if his decreased p.o. intake persists. 6.Anemia of chronic disease with decreased hemoglobin. Plan: Patient is overall doing okay at this time. Continue IV fluids at a lower rate. Hold Lasix a nd enalapril and we will follow up on a.m. labs and monitor his p.o. intake closely. VV/MODL Voice ID: [id number] Report ID: [id number]
[2019-06-10] MEDS ORDERED: ATORVASTATIN 20 MG TAB PO SCH (21:00)
[2019-06-10] MEDS: LORAZEPAM 0.5 MG TABLET PO PRN (21:06)
--- NOTE | 2019-06-11 01:01 | P.PN ---
Subjective Date of Service: 06/10/19 Patient does continue to improve. His strength is much better however his appetite is still very poor. Renal function has improved as well. Will continue to monitor and evaluate his nutritional status. Appetite stimulant has been started and will only give this for 3-4 days. Will review his medication l ist as well. Was opened once his uremia improved a little bit his appetite will come back. However, this does not look like is the case. He did have a EGD performed by GI, Dr. Augustine. Will need to get her records from their office to see their findings. Review of Systems 10-point ROS is otherwise unremarkable Physical Examination - Vital Signs Temperature: 97.4 F Blood Pressure: 169/75 Pulse: 90 Respirations: 20 Pulse Ox (%): 97 - Physical Exam General: Alert, In no apparent distress, Oriented x3 Respiratory: Clear to auscultation bilaterally, Normal air movement Cardiovascular: Regular rate/rhythm, Normal S1 S2 Gastrointestinal: Normal bowel sounds, Soft and benign, Non-distended, No tenderness Musculoskeletal: No clubbing, No swelling, No tenderness Neurological: Normal speech, Normal tone, Normal affect - Studies Medications List Reviewed: Yes Assessment & Plan - Problems (Diagnosis) (1) Generalized weakness Current Visit: Yes Status: Acute (2) Urinary tract infection Current Visit: Yes Status: Acute (3) Uremia Current Visit: Yes Status: Acute (4) Benign prostate hyperplasia Current Visit: No Status: Acute (5) CAD (coronary artery disease) Current Visit: No Status: Acute (6) Depression Current Visit: No Status: Acute (7) Diabetes Current Visit: No Status: Acute (8) GERD (gastroesophageal reflux disease) Current Visit: No Status: Acute (9) Hx of heart artery stent Current Visit: No Status: Acute (10) Hyperlipidemia Current Visit: No Status: Acute (11) Hypertension Current Visit: No Status: Acute - Plan Plan: Continue with current plan of care as mentioned below 1. Gentle IV hydration 2. Check cortisol levels and thyroid studies for myopathy; also check sed rate for polymyalgia-however, strain does appear to be much better today 3. Appetite stimulant 4. Monitor renal function which has improved and Nephrology consultation appreciated 5. Out of bed and ambulate-patient working with physical therapy and doing really well 6. Physical therapy evaluation and may need arrangements for home health 7. IV antibiotics and antifungal 8. GI and DVT prophylaxis Discharge Plan: Home - Advance Directives Does patient have a Living Will: Yes Does patient have a Durable POA for Healthcare: Yes - Code Status/Comfort Care Code Status: Full Code Critical Care: No Time Spent Managing PTS Care (In Minutes): 30
[2019-06-11 01:16] VITALS: O2SAT 96
[2019-06-11] MEDS: LORAZEPAM 0.5 MG TABLET PO PRN (04:58)
[2019-06-11] MEDS: PANTOPRAZOLE 40MG TABLET PO SCH (04:58)
[2019-06-11] MEDS: NA CHLORIDE 0.9% 1,000 ML IV SCH (04:59)
[2019-06-11 06:05] LABS: Absolute Lymphocytes (CBC) 0.9 K/uL (0.7-4.9); Basophils % 0.9 % (0-1.3); Hematocrit 27.7 % (39.6-49.0); Lymphocytes % 20.4 % (15.3-44.8); MPV 9.6 fL (7.6-11.3); RBC Red Blood Cell Count 3.79 M/uL (4.33-5.43)
[2019-06-11 08:25] LABS: BUN Blood Urea Nitrogen 24 mg/dL (7-18); Bicarbonate 21 mmol/L (21-32); Folic Acid, (Folate) > 20.0 ng/mL (3.1-17.5); Glucose Level 217 mg/dL (74-106); Magnesium 2.5 mg/dL (1.8-2.4); Phosphorus 2.3 mg/dL (2.5-4.9); Potassium 3.9 mmol/L (3.5-5.1); Sodium Level 139 mmol/L (136-145); Thyroid Stimulating Hormone 0.426 uIU/mL (0.360-3.740)
[2019-06-11] MEDS: INSULIN -REGULAR HUMAN 50 UNIT/0.5 ML ML SQ SCH ×2 (08:51→12:08)
[2019-06-11] MEDS: INSULIN GLARGINE 100 UNITS/ML SQ SCH (08:52)
[2019-06-11] MEDS: carvediloL 12.5 MG TAB PO SCH (08:52)
[2019-06-11] MEDS: ASPIRIN 81 MG CHEWABLE TABLET PO SCH (08:53)
[2019-06-11] MEDS: EZETIMIBE 10 MG TAB PO SCH (08:53)
[2019-06-11] MEDS: DOCUSATE NA 100 MG CAP PO SCH (08:53)
[2019-06-11] MEDS: CEFTRIAXONE/SWI 1gm 1 GM/10 ML SYR IV SCH (08:54)
[2019-06-11] MEDS: MAGNESIUM OXIDE 400 MG TAB PO SCH (08:54)
[2019-06-11] MEDS ORDERED: MEGESTROL 400 MG/10 ML UCUP PO SCH (09:00)
[2019-06-11] MEDS ORDERED: FLUCONAZOLE 100 MG TAB PO SCH (09:00)
[2019-06-11] MEDS: GLUCERNA SHAKE 237 ML CAN PO SCH ×2 (09:27→13:53)
[2019-06-11] MEDS ORDERED: SOD FERRIC GLUC COMPLX/SUCROSE 125 MG in NA CHLORIDE 0.9% 100 ML IV SCH (13:00)
[2019-06-11 14:48] VITALS: TEMP 97
[2019-06-11 14:49] VITALS: BP 149/67
--- NOTE | 2019-06-11 15:39 | P.PN ---
Date of Service: 06/11/19 Vital Signs Temp Pulse Resp BP Pulse Ox 97 F 69 20 149/67 H 99 06/11/19 12:00 06/11/19 12:00 06/11/19 12:00 06/11/19 12:00 06/11/19 12:00 Medications Acetaminophen (Tylenol -Extra Strength) 500 mg PO Q6H PRN PRN Reason: pain/fever Stop: 07/08/19 23:59 Aspirin (Aspirin Chewable) 81 mg PO DAILY [facility] Stop: 07/10/19 09:01 Last Admin: 06/11/19 08:53 Dose: 81 mg Documented by: Atorvastatin Calcium (Lipitor) 20 mg PO BEDTIME ON[facility] Stop: 07/10/19 21:01 Last Admin: 06/10/19 21:05 Dose: 20 mg Documented by: Calcitriol (Rocaltrol) 0.5 mcg PO DAILY [facility] Stop: 07/12/19 09:01 Carvedilol (Coreg) 12.5 mg PO BID [facility] Stop: 07/10/19 00:43 Last Admin: 06/11/19 08:52 Dose: 12.5 mg Documented by: Cholecalciferol (Vitamin D 5,000 Iu Cap) 5,000 unit PO DAILY [facility] Stop: 07/12/19 09:01 Dextrose (Dextrose 50% Syringe/Vial) 12.5 gm IV PRN PRN; Protocol PRN Reason: HYPOGLYCEMIA Stop: 07/09/19 16:42 Docusate Sodium (Colace Cap) 100 mg PO BID ON[facility] Stop: 07/09/19 21:01 Last Admin: 06/11/19 08:53 Dose: 100 mg Documented by: Ezetimibe (Zetia) 10 mg PO DAILY [facility] Stop: 07/10/19 09:01 Last Admin: 06/11/19 08:53 Dose: 10 mg Documented by: Enteral Nutritional Formula (Glucerna Shake) 237 ml PO TID [facility] Stop: 07/09/19 21:01 Last Admin: 06/11/19 13:53 Dose: 237 ml Documented by: Fluconazole (Diflucan Tab) 100 mg PO DAILY [facility]; Protocol Stop: 07/11/19 09:01 Last Admin: 06/11/19 08:53 Dose: 100 mg Documented by: Glucagon (Glucagen) 1 mg IM 1X PRN; Protocol PRN Reason: HYPOGLYCEMIA Stop: 07/09/19 09:41 Glucagon (Glucagen) 1 mg IM 1X PRN; Protocol PRN Reason: HYPOGLYCEMIA Stop: 07/09/19 16:42 Ceftriaxone Sodium/Sodium Chloride (Rocephin 1 Gm/10 Ml Swi Ivp) 1 gm in 10 mls @ 600 mls/hr IV DAILY [facility]; Protocol Stop: 07/09/19 09:01 Last Admin: 06/11/19 08:54 Dose: 10 mls Documented by: Sodium Chloride (Ns 1000 Ml Ivbag) 1,000 mls @ 50 mls/hr IV .Q20H [facility] Stop: 07/10/19 09:54 Last Admin: 06/11/19 04:59 Dose: 1,000 mls Documented by: Ferric Sodium Gluconate Complex 125 mg/ Sodium Chloride 110 mls @ 100 mls/hr IV DAILY [facility] Stop: 06/18/19 10:05 Last Admin: 06/11/19 13:53 Dose: 110 mls Documented by: Insulin Glargine (Lantus) 70 units SQ DAILY [facility] Stop: 07/10/19 09:01 Last Admin: 06/11/19 08:52 Dose: 70 units Documented by: Insulin Human Regular (Novolin -R) 0 unit SQ ACHS [facility]; Protocol Stop: 07/09/19 11:31 Last Admin: 06/11/19 12:08 Dose: 7 unit Documented by: Lorazepam (Ativan) 0.5 mg PO Q6H PRN PRN Reason: ANXIETY Stop: 07/09/19 16:37 Last Admin: 06/11/19 04:58 Dose: 0.5 mg Documented by: Magnesium Oxide (Mag 0x Tab) 400 mg PO BID [facility] Stop: 07/10/19 09:01 Last Admin: 06/11/19 08:54 Dose: 400 mg Documented by: Morphine Sulfate (Morphine Sulfate) 2 mg IV Q4H PRN PRN Reason: Pain scale 5-7 (Moderate) Stop: 07/08/19 23:59 Ondansetron HCl (Zofran) 4 mg IV Q6H PRN PRN Reason: NAUSEA / VOMITING Stop: 07/08/19 23:59 Last Admin: 06/09/19 09:31 Dose: 4 mg Documented by: Pantoprazole Sodium ([facility]ix Tab) [facility] Stop: 07/10/19 06:31 Last Admin: 06/11/19 04:58 Dose: 40 mg Documented by: Sodium Chloride (Normal Saline Flush) 10 ml IV BID [facility] Stop: 07/09/19 09:01 Last Admin: 06/11/19 08:54 Dose: 10 ml Documented by: Microbiology Results 06/08/19 23:48 Clean Catch Urine [place] Count - Final >100,000 CFU/ML. 06/08/19 23:48 Clean Catch Urine - Final Assessment/ Plan: Nephrology Feeling much better today with an improved appetite. CPS stable without CP or SOB. No acute events overnight. Vitals, medications, blood work and imaging reviewed in the chart. General: Oriented x3 HEENT: Atraumatic Neck: Supple Respiratory: Clear to auscultation bilaterally Cardiovascular: No edema, Regular rate/rhythm Gastrointestinal: Soft and benign, Non-distended Musculoskeletal: No clubbing, No contractures Integumentary: No rashes, No cyanosis Neurological: Normal speech Laboratory Data (last 24 hrs) 06/08/19 21:48: PT 13.6 H, INR 1.16 06/08/19 21:48: WBC 15.7 H, Hgb 11.6 L, Hct 38.0 L, Plt Count 289 06/08/19 21:48: Sodium 135 L, Potassium 4.1, BUN 33 H, Creatinine 2.31 H, Glucose 215 H, Magnesium 2.9 H D, Total Bilirubin 0.4, AST 28, ALT 28, Alkaline Phosphatase 259 H Imagings Data: EXAM DESCRIPTION: CT - Abdomen Pelvis Wo Contrast - 06/08/2019 10:54 pm CLINICAL HISTORY: no contrast;Abd pain COMPARISON: Abdomen Pelvis W Contrast dated 06/20/2018; Chest Single View dated 06/08/2019 TECHNIQUE: Axial [address] imaging of the abdomen and pelvis was performed without IV contrast. No IV contrast was given because of allergy, abnormal renal function, patient refusal or physician request. No oral contrast. All CT scans are performed using dose optimization technique as appropriate and may include automated exposure control or mA/KV adjustment according to patient size. FINDINGS: No acute lung base finding. Patient has a moderately large hiatal hernia with 30% of the stomach intrathoracic. The liver and spleen show no focal abnormalities. Granulomatous calcifications present in the spleen. Liver has a nodular capsular contour. Cholelithiasis is present. Active gallbladder process not suspected. No biliary tree dilatation. Significant pancreatic atrophy is present. No pancreatic parenchymal mass or inflammatory stranding seen. No hydronephrosis or suspicious renal mass. No significant adrenal finding. Isodense renal masses and pyelonephritis cannot be excluded in the absence of IV contrast. Urinary bladder is mostly contracted limiting detail. No acute bladder abnormality suspected. No acute prostate finding seen. No gastric wall thickening or mass. Assessment of herniated portion of the stomach is inherently limited. No dilated large or small bowel. Moderate stool volume seen in the left-side of the colon. No appendicitis. No active colon process seen. No free air, free fluid or inflammatory stranding. No mass or bulky lymphadenopathy. Bilateral fat filled inguinal hernias are present. L2-4 surgical fusion changes are present. Graft material is present in disc spaces between L2-3 and L3-4. No hardware fracture seen. Prominent arterial tree calcifications are present. IMPRESSION: No bowel obstruction, free air or surgically emergent finding. EXAM DESCRIPTION: RAD - Chest Single View - 06/08/2019 9:45 pm CLINICAL HISTORY: COUGH COMPARISON: December 2018 Two view chest TECHNIQUE: AP portable chest image was obtained 06/08/2019 9:45 pm . FINDINGS: No focal infiltrate changes identified. Lung volumes are low. Right costophrenic angle blunting is present. There is a vague 8-10 mm nodular focus in the right midlung field. This is new from the prior study and warrants re- evaluation with follow-up two view chest examination. No failure or volume overload. Moderately large hiatal hernia is noted. This has been previously seen. Heart and vasculature are normal. No measurable pleural effusion and no pneumothorax. No acute bony abnormality seen. No acute aortic findings suspected. IMPRESSION: No failure, infiltrate or acute cardiopulmonary finding. Right costophrenic angle blunting is present but favored to be shallow inspiration affects rather than pleural effusion. Small nodule in the right midlung field needs follow-up with two view chest imaging or CT chest imaging to determine if this is a true finding. Conclusions/Impression: A/ RACHEL likely due to hypovolemia. Possible ATN? Hyponatremia. Hypocalcemia CKD with proteinuria. HTN with CKD. DM II with CKD. Moderate malnutrition. Anemia in chronic illness. Iron Deficiency. P/ Continue current POC and Medications. Agree with IV iron. Start Vitamin D. Continue Rocephin for possible cystitis. Ativan as needed for anxiety and insomnia. Encourage nutrition. No NSAIDs. AM labs. Daily weight.
[2019-06-12] MEDS ORDERED: CALCITROL 0.25 MCG CAP PO SCH (09:00)
[2019-06-12] MEDS ORDERED: VITAMIN D 5,000 UNIT CAP PO SCH (09:00)
--- NOTE | 2019-06-12 11:56 | P.DS ---
Discharge Date: 06/11/19 Disposition: ROUTINE DISCHARGE Discharge Condition: GOOD Reason for Admission: Weakness Consultations: Nephrology - Problems (1) Generalized weakness Status: Acute (2) Urinary tract infection Status: Acute (3) Uremia Status: Acute (4) Benign prostate hyperplasia Status: Acute (5) CAD (coronary artery disease) Status: Acute (6) Depression Status: Acute (7) Diabetes Status: Acute (8) GERD (gastroesophageal reflux disease) Status: Acute (9) Hx of heart artery stent Status: Acute (10) Hyperlipidemia Status: Acute (11) Hypertension Status: Acute Brief History of Present Illness: Pt is a 74yo who was At home feeling weak. He has not been himself for the last few weeks. He has been eating less and he states that he has very little strength. Food does not taste good to him any longer. He has been eating very little at home and he has been having a hard time getting around. His family brought him into the hospital to be evaluated. In the emergency room he was found have some acute renal insufficiency. He appeared to be very dehydrated and his low albumin indicated poor nutritional status. He has been followed by GI and had a EGD which she says he had some stenosis. In the ER patient had a urinalysis which indicated infection along with a yeast infection. Patient will need admission for further evaluation at this time. Hospital Course: had patient's own well during hospital stay. His appetite has returned. Clinically he is doing well and is stable for discharge. His renal function has improved as well. He will follow up with his PCP in 1-2 weeks. If he has any issues I have told him to call me on my cell phone for further assistance. Vital Signs/Physical Exam: Temp Pulse Resp BP Pulse Ox 97 F 69 20 149/67 H 99 06/11/19 12:00 06/11/19 12:00 06/11/19 12:00 06/11/19 12:00 06/11/19 12:00 General: Alert, In no apparent distress, Oriented x3 Laboratory Data at Discharge: WBC 4.3 K/uL (4.3-10.9) D 06/11/19 05:40 Hgb 8.5 g/dL (13.6-17.9) L 06/11/19 05:40 Hct 27.7 % (39.6-49.0) L 06/11/19 05:40 Plt Count 129 K/uL (152-406) L 06/11/19 05:40 PT 13.3 SECONDS (9.5-12.5) H 06/09/19 05:01 INR 1.13 06/09/19 05:01 APTT 27.7 SECONDS (24.3-36.9) 06/09/19 05:01 Sodium 139 mmol/L (136-145) 06/11/19 05:40 Potassium 3.9 mmol/L (3.5-5.1) 06/11/19 05:40 BUN 24 mg/dL (7-18) H 06/11/19 05:40 Creatinine 1.16 mg/dL (0.55-1.3) 06/11/19 05:40 Glucose 217 mg/dL (74-106) H 06/11/19 05:40 Uric Acid 9.7 mg/dL (3.5-7.2) H 06/10/19 05:32 Phosphorus 2.3 mg/dL (2.5-4.9) L 06/11/19 05:40 Magnesium 2.5 mg/dL (1.8-2.4) H 06/11/19 05:40 Total Bilirubin 0.3 mg/dL (0.2-1.0) 06/10/19 05:32 AST 24 U/L (15-37) 06/10/19 05:32 ALT 21 U/L (12-78) 06/10/19 05:32 Alkaline Phosphatase 179 U/L (45-117) H 06/10/19 05:32 Troponin I 0.05 ng/mL (0.0-0.045) H 06/09/19 05:01 Home Medications: Ezetimibe [Zetia*] 10 mg PO DAILY 05/23/18 Magnesium Oxide [Mag 0X*] 400 mg PO BID 05/23/18 Pantoprazole Sodium [Protonix] 40 mg PO DAILY 05/23/18 Furosemide [Lasix*] 20 mg PO DAILY 06/26/18 Simvastatin 40 mg PO BEDTIME 06/26/18 Aspirin 81 mg PO DAILY 06/09/19 Carvedilol [Coreg] 12.5 mg PO BID 06/09/19 Enalapril Maleate [Vasotec] 40 mg PO DAILY 06/09/19 Esomeprazole Mag Trihydrate [Nexium] 20 mg PO DAILY 06/09/19 Insulin Detemir [Levemir] 70 units SQ DAILY 06/09/19 Fluconazole [Diflucan] 100 mg PO DAILY #7 tablet 06/11/19 Glucerna Shake [Glucerna*] 237 ml PO TID #90 can 06/11/19 Megestrol [Megace] 10 ml PO DAILY 5 Days #50 ml 06/11/19 Ondansetron [Zofran] 4 mg PO Q6H PRN #20 tab 06/12/19 New Medications: Fluconazole [Diflucan] 100 mg PO DAILY #7 tablet Glucerna Shake [Glucerna*] 237 ml PO TID #90 can Megestrol [Megace] 10 ml PO DAILY 5 Days #50 ml Ondansetron [Zofran] 4 mg PO Q6H PRN #20 tab PRN Reason: Nausea / Vomiting Patient Discharge Instructions: OK TO DC IV AND DC HOME. FOLLOW-UP WITH PRIMARY CARE PROVIDER IN 1-2 WEEKS. FOLLOW-UP WITH CARDIOLOGY IN 1-2 WEEKS. RETURN TO THE ER IF SYMPTOMS WORSENS. CALL DR. SCHNEIDER AT [phone] IF ANY QUESTIONS REGARDING HOSPITAL STAY. PLEASE CALL THE FLOOR AT [phone] IF ANY MEDICATION OR NURSING QUESTIONS. Diet: Regular Activity: Fall precautions Followup: Nba Dumont MD [ACTIVE - CAN ADMIT] - (Please call to make an appointment) Time spent managing pt's care (in minutes): 20
== END 2019-06-11 16:35 | disposition home or self-care (01) | DRG 683 ==
LOC: ER 21:08 → 2ND 06-09 00:34
PROVIDERS: ADMIT Hospitalist; ATTEND Hospitalist
DX: N17.0 Acute kidney failure with tubular necrosis (principal); N39.0 Urinary tract infection, site not specified; E87.1 Hypo-osmolality and hyponatremia; E44.0 Moderate protein-calorie malnutrition; N40.0 Benign prostatic hyperplasia without lower urinary tract symptoms; I25.10 Atherosclerotic heart disease of native coronary artery without angina pectoris; F32.9 Major depressive disorder, single episode, unspecified; K21.9 Gastro-esophageal reflux disease without esophagitis; Z95.5 Presence of coronary angioplasty implant and graft; E78.5 Hyperlipidemia, unspecified; Z79.899 Other long term (current) drug therapy; Z79.82 Long term (current) use of aspirin; Z79.4 Long term (current) use of insulin; Z88.1 Allergy status to other antibiotic agents; Z85.828 Personal history of other malignant neoplasm of skin; Z87.891 Personal history of nicotine dependence; E86.0 Dehydration; F41.9 Anxiety disorder, unspecified; G47.00 Insomnia, unspecified; Z68.23 Body mass index [BMI] 23.0-23.9, adult; E86.1 Hypovolemia; I12.9 Hypertensive chronic kidney disease with stage 1 through stage 4 chronic kidney disease, or unspecified chronic kidney disease; N18.9 Chronic kidney disease, unspecified; E11.22 Type 2 diabetes mellitus with diabetic chronic kidney disease; D63.1 Anemia in chronic kidney disease; E83.51 Hypocalcemia; R13.10 Dysphagia, unspecified
CPT/HCPCS: 36415; 71045; 74176; 80048; 80053; 80076; 81001; 81003; 81015; 82043; 82550; 82570; 82607; 82746; 82947; 83540; 83735; 83880; 84100; 84439; 84443; 84466; 84484; 84550; 85025; 85610; 85652; 85730; 86308; 87086; 87088; 93005; 96360; 97116; 97161; 97530; 99285; G0103; J0696; J1815; J2405; J2916; J7030; J7040

== ENCOUNTER 2019-08-28 13:29 | Inpatient (IN) | payer OTHER, MEDICARE ==
[2019-08-28 15:08] LABS: Protime INR 1.04
[2019-08-28] MEDS ORDERED: NA CHLORIDE 0.9% 1,000 ML ONE ×2 (15:24→16:29)
[2019-08-28] MEDS ORDERED: AZITHROMYCIN 500 MG INJ IVPB ONE (15:24)
[2019-08-28] MEDS ORDERED: NA CHLORIDE 0.9% 250 ML ONE (15:24)
[2019-08-28] MEDS ORDERED: CEFTRIAXONE/SWI 1gm 1 GM/10 ML SYR ONE (15:24)
--- NOTE | 2019-08-28 15:28 | RAD REPORT ---
EXAM DESCRIPTION: Rudy Single View08/28/2019 2:52 pm CLINICAL HISTORY: cough COMPARISON: June 2019 FINDINGS: 6 millimeter nodular opacity overlies the right upper lobe The remainder of the lungs appear clear of acute infiltrate. The heart is normal size. Postsurgical changes involve the chest. Moderate to large hiatal hernia IMPRESSION: A 6 millimeter nodular opacity overlies the right upper lobe which may represent a pulmo nary nodule or confluence of ribs and vessels. A nonemergent Unenhanced CT chest recommended
[2019-08-28 15:34] LABS: Albumin 3.3 g/dL (3.4-5.0); Bilirubin Direct 0.3 mg/dL (0-0.2); Bilirubin Total 0.7 mg/dL (0.2-1.0); Protein, Total 8.3 g/dL (6.4-8.2); Troponin (Emerg Dept Use Only) 0.04 ng/mL (0.0-0.045)
[2019-08-28 15:35] LABS: Magnesium 2.6 mg/dL (1.8-2.4); Potassium 5.1 mmol/L (3.5-5.1)
[2019-08-28 15:49] LABS: Absolute Lymphocytes (CBC) 0.8 K/uL (0.7-4.9); Basophils % 0.8 % (0-1.3); Hematocrit 43.1 % (39.6-49.0); Lymphocytes % 21.6 % (15.3-44.8); MPV 10.4 fL (7.6-11.3); RBC Red Blood Cell Count 4.65 M/uL (4.33-5.43)
[2019-08-28] MEDS ORDERED: NA CHLORIDE 0.9% 500 ML ONE (16:29)
[2019-08-28] MEDS ORDERED: ACETAMINOPHEN 325 MG TABLET ONE (16:29)
[2019-08-28] MEDS ORDERED: METHYLPREDNISOLONE 125 MG INJ ONE (16:29)
[2019-08-28] MEDS ORDERED: ALBUTEROL 2.5 MG/3 ML NEB SOL ONE (16:29)
[2019-08-28] MEDS ORDERED: IPRATROPIUM BROM 0.5MG/2.5ML ONE (16:29)
[2019-08-28] MEDS ORDERED: INSULIN -REGULAR HUMAN 50 UNIT/0.5 ML ML ONE (16:31)
--- OUTSIDE RECORDS SUMMARY | 2019-08-28 17:13 | XMS REPORT | Clinical Summary ---
:1945 Author Organization [facility] Address [address] [place] [address] Care Team Providers Name Role Phone MD Mario Primary Care Provider Allergies No Known Allergies Medications Medication Sig Dispensed Refills Start Date End Date Status tamsulosin (FLOMAX) Take 1 capsule 0 03/11/2018 Active 0.4 mg capsule (0.4 mg total) by mouth daily. pantoprazole Take 1 tablet (40 0 03/11/2018 Active (PROTONIX) 40 MG EC mg total) by mouth tablet daily. insulin detemir Inject 14 Units 0 Active U-100 (LEVEMIR) 100 under the skin unit/mL injection daily. atorvastatin Take 10 mg by 0 Act ajay (LIPITOR) 10 MG mouth nightly. tablet losartan (COZAAR) 25 Take 25 mg by 0 Active MG tablet mouth daily. naloxone (NARCAN) Infuse 0.5 mL (0.2 1 mL 0 06/06/2018 Active 0.4 mg/mL injection mg total) into a venous catheter once as needed for opioid reversal or respiratory depression. methocarbamol Take 500 mg by 0 A ctive (ROBAXIN) 500 MG mouth 3 (three) tablet times a day. gabapentin Take 100 mg by 0 Acti ve (NEURONTIN) 100 mg mouth 2 (two) capsule times a day. ramelteon (ROZEREM) Take 8 mg by mouth 0 Active 8 mg tablet nightly. metoprolol succinate Take 1 tablet (25 30 tablet 11 03/11/2018 03/11/2019 XL (TOPROL-XL) 25 mg mg total) by mouth 24 hr tablet daily. ezetimibe (ZETIA) 10 Take 1 tablet (10 30 tablet 11 03/10/2018 03/10/2019 mg tablet mg total) by mouth nightly. furosemide (LASIX) Take 1 tablet (20 30 tablet 11 06/06/2018 20 mg tablet mg total) by mouth daily. magnesium oxide Take 1 tablet (400 60 tablet 11 06/06/2018 04/0 06/2019 (MAG-OX) 400 mg mg total) by mouth (241.3 mg magnesium) 2 (two) times a tablet day. ascorbic acid, Take 1 tablet 30 tablet 11 06/06/2018 06/06/2019 vitamin C, (VITAMIN (1,000 mg total) C) 1000 MG tablet by mouth daily. simvastatin (ZOCOR) Take 1 tablet (40 30 tablet 06/06/2018 0 06/06/2019 40 MG tablet mg total) by mouth nightly. NIFEdipine XL Take 1 tablet (60 30 tablet 06/06/2018 020 (PROCARDIA XL) 60 MG mg total) by mouth 24 hr tablet daily. Active Problems Problem Noted Date Back pain 05/28/2018 Uncontrolled type 2 diabetes mellitus with peripheral [...] Encounters Date Type Specialty Care Team Description 09/25/2018 Refill Internal Medicine Ivana Kelly MD after 08/27/2018 Family History Medical History Relation Name Comments Heart disease Father Heart disease Mother Relation Name Status Comments Father Mother Social History Tobacco Use Types Packs/Day Years Used Date Current Some Day Smoker Cigarettes 1 10 Quit : 09/05/1991 Smokeless Tobacco: Current User Tobacco Cessation: Counseling Given: Yes Alcohol Use Drinks/Week oz/Week Comments Yes 3 Shots of liquor 3.0 3 week Sex Assigned at Date Recorded Not on file Job Start Date Occupation Industry Not on file Not on file Not on file Travel History Travel Start Travel End No recent travel history available. Last Filed Vital Signs Not on file Plan of Treatment Health Maintenance Due Date Last Done Comments DIABETIC RETINAL EYE EXAM 1945 DIABETIC FOOT EXAM 1955 COLONOSCOPY SCREENING 1993 SHINGLES VACCINES (#1) 1993 65+ PNEUMOCOCCAL VACCINE (2 of 2 - 2008 12/06/2014 PPSV23) INFLUENZA VACCINE 10/03/2019 11/06/2017, 11/06/2017, 11/06/2017, Additional history exists Implants Implanted Type Area Associate Professor Of Literacy Device Shelf Model / Identifier Expiration Serial / Lot Date Bone Matriz Osteocel Pro Large - [id number] - [id number] Human T issue N/A: NUVASIVE 01/11/2023 [id number] / Implanted: Qty: 1 on 06/03/2018 by Thomas Covarrubias MD at [facility] Implants Spine [id number] / Lumbar LOT NA Drafton Dbm Orthoblend Small Defect 5cc - [id number] - [id number] Human Tissue N/A: N/A MEDTRONIC 12/23/2019 [id number] / Implanted: Qty: 1 on 06/03/2018 by Thomas Covarrubias MD at [facility] [place] Implants SPINAL AND [id number] / BIOLOGICS LOT NA Modulus Xl, [id number] 10deg - [id number] [id number] IMPLANT N/A: N/A NUVAS AJAY SPINE 01/16/2022 [id number] / Implanted: Qty: 1 on 06/03/2018 by Thomas Covarrubias MD at [facility] DEV ICES / [id number] Modulus Xl, [id number] 10deg - [id number] [id number] IMPLANT N/A: NUVAS AJAY SPINE 12/29/2022 [id number] / Implanted: Qty: 1 on 06/03/2018 by Thomas Covarrubias MD at [facility] DEVICES Spine / Lumbar [id number] Mauricio [id number] 60mm Capped Mauricio 4.75mm Ccm - [id number] IPM IMPLAN T N/A: N/A MEDTRONIC [id number] / Implanted: Qty: 1 on 06/03/2018 [facility] DEVICES SOFAMOR DANEK / 7.5 50mm Solera Voyager Screw - [id number] IPM IMPLANT N/A: N/A MEDT RONIC [id number] / Implanted: Qty: 1 on 06/03/2018 by Thomas Covarrubias MD at [facility] DEVICES SOFAMOR DANEK / Mauricio [id number] 65mm Capped Mauricio 4.75mm Ccm - [id number] IPM IMPLAN T N/A: N/A MEDTRONIC [id number] / Implanted: Qty: 1 on 06/03/2018 by Thomas Covarrubias MD at [facility] DEVICES SOFAMOR DANEK / Material Bone Hmsts Wtrsolbl 2.5g Ostene - [id number] Orthopedic N/A: N/A 12/01/2022 [id number] / Implanted: Qty: 1 on 06/03/2018 by Thomas Covarrubias MD at [facility] Tra abi / Implants [id number] Screw Mas 4.75 Ext Tab Kaylie 6.5 X 55 - [id number] Spinal N/A: N/A MEDTRONIC [id number] / Implanted: Qty: 4 on 06/03/2018 by Thomas Covarrubias MD at [facility] Implants SPINAL AND / BIOLOGICS Set Screw 4.75mm Solera Perc Ti - [id number] Spinal N/A: N/A MEDTR ONIC [id number] / Implanted: Qty: 6 on 06/03/2018 by Thomas Covarrubias MD at [facility] Implants SOFAMOR DANEK / Screw Mas 4.75 Ext Tab Kaylie 7.5 X 55 - [id number] Spinal N/A: N/A MEDTRONIC [id number] / Implanted: Qty: 1 on 06/03/2018 by Thomas Covarrubias MD at [facility] Implants SPINAL AND / BIOLOGICS Kit Dil M5 Xlif - [id number] Spinal N/A: N/A NUVASIVE [id number] / Implanted: Qty: 1 on 06/03/2018 by Thomas Covarrubias MD at [facility] Imp lants / Tray Bpsy Sys 102mm Oncontrol - [id number] Surgical VIDACAR E JOSSY [id number] / Implanted: Qty: 1 on 05/30/2018 at [facility] Implants; / Expanders; Extenders; Surgical Wires Pin Surgcl Percutns 100mm - [id number] Surgical N/A: N/A [employer]TR[employer]IC 03/07/2021 [id number] / Implanted: Qty: 1 on 06/03/2018 by Thomas Covarrubias MD at [facility] Implants; NAVIGATION / Expanders; TECHNOLOGIES [id number] Extenders; [place] Surgical Wires Explanted Type Area Associate Professor Of Literacy Device Identifier Shelf Exp iration Model / Serial Date / Lot Kamron / / [id number] Results Not on fileafter 08/27/2018 Insurance Payer Benefit Plan / Subscriber ID Effective Dates Phone Addre ss Type Group MEDICARE MEDICARE PART A xxxxxxxxxxx 2008-Present [place], [place] Medicare AND B AARP AARP SUPPLEMENT xxxxxxxxxx 1993-Present Commercial Advance Directives For more information, please contact: [phone] Type Date Recorded Patient Equipment Engineer Explanati on Advance Directives, 02/14/2018 2:15 PM Living Will and Medical Power of Surgical Consultant Advance Directives, 03/03/2018 12:00 AM ADVANCE Living Will and DIRECTIVES/POWER OF Medical Power of BONDING MACHINE TENDER Surgical Consultant Advance Directives, 03/13/2018 11:40 AM Living Will and Medical Power of Surgical Consultant
--- OUTSIDE RECORDS SUMMARY | 2019-08-28 17:14 | XMS REPORT | Summary of Care ---
:1945 Author Organization [facility] Address [address] [place] [address] Care Team Providers Name Role Phone Pcp, Patient Does Not Have A Primary Care Provider +1-000-00 0-0000 Reason for Visit Reason Comments Evaluation lesion face Encounter Details Date Type Department Care Team Description 07/23/2019 Office Visit [facility] Rinku Davis eratosis (Primary Dx); Dermatology, Marlene Cope MD Neoplasm of uncertain behavior of skin; [address] History of nonmelanoma skin cancer 2660 [facility] [id number] [place], [place] Entrance [address], [address] [address] [place], [place] [phone] [address] [phone] Allergies No Known Allergiesdocumented as of this encounter (statuses as of 07/23/2019) Medications Medication Sig Dispensed Refills Start Date [...] as of this encounter (statuses as of 07/23/2019) Active Problems Problem Noted Date History of nonmelanoma skin cancer 12/22/2012 documented as of this encounter (statuses as of 07/23/2019) Social History Tobacco Use Types Packs/Day Years [...] on filedocumented in this encounter Progress Notes Julissa Parra MD - 07/23/2019 9:45 AM CDTCC: lesion on cheek HPI: Tacho Castillo is a 74 year old male with history of skin cancer, who presents for routine skin check. Today, he notes a lesion on his right cheek present for 4-5 weeks. He denies any pain, bleeding or pruritis. No treatments attempted. Otherwise, no other skin concerns voiced today. Histories (+) hx skin cancer ROS: (-) = negative (+) = positive Constitutional: (-) pain Integumentary: (-) itching (-) color change (+) growth (-) rash Hematologic/Lymphatic: (-) bleeding Physical Exam General : No acute distress, awake, well developed, well nourished Psychiatric: Normal affect, mood, judgement, and thought content Neuro: Alert, oriented to person, place, situation FACE: Positive EYES: Negative NOSE: Negative EARS: Negative RIGHT ARM: Negative LEFT ARM: Positive Assessment and Plan 1. Neoplasm of uncertain behavior on the skin, R cheek DDx: BCC vs other - Discussed differential diagnosis with patient. Risks discussed (pain, infection, bleeding, scarring). Verbal consent obtained. - Area prepped with alcohol. Local anesthesia obtained with 1% lidocaine with epinephrine. 0.6 cm tangential biopsy performed. Specimen sent to pathology for analysis, pt to be contacted with results. Hemostasis obtained with AlCl. Curettage and electrodessication performed x 3 times to base of lesion. Lesion size 0.6 cm. Vaseline and bandage applied. Wound care discussed. 2. Actinic keratosis- L hand - Discussed diagnosis and treatment options. - Discussed relation to sun exposure and premalignant nature of lesions. - LN2 x 1 performed after obtaining verbal consent. - Discussed sun avoidance and protection. 3. 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 Patient was seen with Dr. Davis, who agrees with plan of care. Stephanie Miles, am scribing for, and in the presence of Rinku Davis MD and resident Julissa Parra MD; Rinku Davis MD and Dr. Julissa Parra performed and/or ordered the services described here-in. Stephanie Baldwin 07/23/2019 10:23 I, Dr. Julissa Parra, personally performed and/or ordered the services described in this documentation, as scribed by Stephanie Baldwin in my presence, and it is both accurate and complete. Julissa Parra MD [facility] Dermatology, PGY-2 10:28 AM documented in this encounter Plan of Treatment Date Type Specialty Care Team Description 09/24/2019 Office Visit Dermatology Eduard Davis MD [address] [place], [place] [address] Health Maintenance Due Date Last Done Comments DTaP,Tdap,and Td Vaccines (1 - Tdap) 1954 Zoster Recombinant Vaccine (SHINGRIX) (1 of 2) 1993 Medicare Wellness Visit 2008 PNEUMOCOCCAL VACCINES 65+ (1 of 2 - PCV13) 2008 INFLUENZA VACCINE (Season Ended) 2019 documented as of this encounter Results Not on filedocumented in this encounter Visit Diagnoses Diagnosis Actinic keratosis - Primary Neoplasm of uncertain behavior of skin History of nonmelanoma skin cancer Personal history of other malignant neop lasm of skin documented in this encounter Insurance Payer Benefit Plan / Subscriber ID Effective Phone Address T ype Group Dates MEDICARE MEDICARE PART xxxxxxxxxxx 2008-Pre [phone] [address] [place] edicare A & B sent [phone] ANNA COLEMAN [phone] [facility] [id number] 1993-Pre [address] [facility] sent [id number] Supplement MEDICARE [place] SUPPLEMENT ANNA GRUBBS [id number] documented as of this encounter
--- OUTSIDE RECORDS SUMMARY | 2019-08-28 17:14 | XMS REPORT | Continuity of Care Document ---
:1945 Author Organization [facility] t Address [address] [place] [address] Care Team Providers Name Role Phone Mario GUEVARA Primary Care Physician Anatoliy Davis MD Attending Clinician Xavi Kelly MD Attending Clinician Payers Payer Name Policy Policy Number Effective Expiration Source Type Date Date MEDICAREMEDICARE PART xxxxxxxxxxx 2008 Oliver yan A AND 00:00:00 [employer] B[place]/03[place] [place] [place] [place]x 1993 [place] SUPPLEMENTxxxxxxxxxx2 00:00:00 Met ballard /03/1993[facility] Problems Condition Condition Condition Status Onset Resolution Last Treating Co mments Source Name Details Category Date Date Treatment Clinician Date Back pain Back pain Disease Active Saadia gupta 3-27 [facility] 00:00: st 00 Uncontroll Uncontroll Disease Active 2018- H [facility] ed type 2 ed type 2 1-03 Meth elvia diabetes diabetes 00:00: st mellitus mellitus 00 with with peripheral peripheral neuropathy neuropathy Essential Essential Disease Active 2017-03 Saadia ston hypertensi hypertensi 2-28 Me [facility] on on 00:00: st 00 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 [place] abscess abscess 2-14 [facility] 00:00: st 00 Leg Leg Disease Active 2017-03 [place] weakness, weakness, 1-19 Meth elvia bilateral bilateral 00:00: st 00 Iron Iron Disease Active [place] deficiency deficiency 7-25 Me thodi anemia anemia 00:00: st secondary secondary 00 to to inadequate inadequate dietary dietary iron iron intake intake Hospital [facility] Disease Active [place] discharge discharge 7-11 Meth elvia follow-up follow-up 00:00: st 00 Altered Altered Disease Active [place] mental mental 7-04 [facility] status, status, 00:00: st unspecifie unspecifie 00 d d Acute Acute Disease Active [place] alcoholic alcoholic 7-04 Meth elvia hepatitis hepatitis 00:00: st 00 Hyperkalem Hyperkalem Disease Active H g[place]elle ia ia 7-04 [facility] 00:00: st 00 Lactic Lactic Disease Active [place] acidosis acidosis 7-04 Method i 00:00: st 00 Alcohol Alcohol Disease Active [place] abuse abuse 7-04 [facility] 00:00: st 00 Acute Acute Disease Active [place] renal renal 7-04 [facility] failure failure 00:00: st 00 Nausea and Nausea and Disease Active H [place] vomiting vomiting 7-04 Method i 00:00: st 00 Normocytic Normocytic Disease Active H [place] anemia anemia 7-04 [facility] 00:00: st 00 Allergies, Adverse Reactions, Alerts Allergy Allergy Status Severity Reaction(s) Onset Inactive Treating Comm ents Source Name Type Date Date Clinician No Known DA Active U 2017-03 [facility] 1-13 [place] [facility] No Known DA Active U 2017-03 [facility] Allergie 1-12 [place] [facility] No Known DA Active U 2017-03 [facility] Allergie 0-16 [place] [facility] No Known DA Active U 2017-03 [facility] Allergie 0-15 [place] 00:[facility] No Known DA Active U [facility] Allergie 8-29 [place] [facility] 00[facility] Family History Family Member Diagnosis Comments Start Date Stop Date Source Natural father Heart disease Miguel Kevin Natural mother Heart disease Miguel Kevin Social History Social Habit Start Date Stop Date Quantity Comments Source Sex Assigned At [facility] ethodist Cigarettes smoked 2018-07-10 2018-07-10 Miguel Kevin current (pack per 00:00:00 00:00:00 day) - Reported Cigarette 2018-07-10 2018-07-10 Miguel Method ist pack-years 00:00:00 00:00:00 Alcohol intake 2018-07-10 2018-07-10 Current drinker [place] [employer] 00:00:00 00:00:00 of alcohol (finding) Alcohol Comment 2018-01-31 2018-01-31 3 week [facility] ethodist 00:00:00 00:00:00 History of tobacco 1991-09-05 Current some day Miguel [employer] use 00:00:00 smoker Smoking Status Start Date Stop Date Source Current some day smoker 2018-07-10 00:00:00 Scott Kevin Medications Ordered Filled Start Stop Current Ordering Indication Dosage Frequency Signature Comments Components Source Medication Medication Date Date Medication? Clinician (SIG) Name Name insulin Yes 14U QD Inject 14 [place] detemir 5-09 Units Methodi U-100 15:34: under the st (LEVEMIR) 05 skin 100 unit/mL daily. injection atorvastati Yes 10mg QD Take 10 mg Rivera n (LIPITOR) 5-09 by mouth Meth elvia 10 MG 15:34: nightly. st tablet 05 losartan Yes 25mg QD Take 25 mg Saadia ston (COZAAR) 25 -09 by mouth Meth elvia MG tablet 15:34: daily. st 05 methocarbam Yes 500mg [id number] Take 500 Rivera ol 5-09 [id number] mg by Methodi (ROBAXIN) 15:34: 3D mouth 3 st 500 MG 05 (three) tablet times a day. gabapentin Yes 100mg Q.5D Take 100 [place] (NEURONTIN) 5-09 mg by Methodi 100 mg 15:34: mouth 2 st capsule 05 (two) times a day. ramelteon Yes 8mg QD Take 8 mg Saadia ston (ROZEREM) 8 5-09 by mouth Meth elvia mg tablet 15:34: nightly. st 05 naloxone 2018- Yes .2mg Infuse 0.5 Saadia ston (NARCAN) 4-05 mL (0.2 mg Metho di 0.4 mg/mL 00:00: total) st injection 00 into a venous catheter once as needed for opioid reversal or respirator y depression . furosemide 2019- No 20mg QD Take 1 [place] (LASIX) 20 06-06-04 tablet (20 Me thodi mg tablet 00:00: 23:59 mg total) st 00 :00 by mouth daily. magnesium 2019- No 400mg Q.5D Take 1 [place] oxide 06-06- tablet Methodi (MAG-OX) 00:00: 23:59 ([address] 400 mg 00 :00 total) by (241.3 mg mouth 2 magnesium) (two) tablet times a day. ascorbic 2019- No 1000mg QD Take 1 [place] acid, 06-06- tablet Methodi vitamin C, 00:00: 23:59 (1,000 mg s t (VITAMIN C) 00 :00 total) by 1000 MG mouth tablet daily. simvastatin 2019- No 40mg QD Take 1 Saadia ston (ZOCOR) 40 06-06-04 tablet (40 Me thodi MG tablet 00:00: 23:59 mg total) st 00 :00 by mouth nightly. NIFEdipine 2019- No 60mg QD Take 1 [place] XL 06-06-04 tablet (60 Methodi (PROCARDIA 00:00: 23:59 mg total) s t XL) 60 MG 00 :00 by mouth 24 hr daily. tablet tamsulosin Yes .4mg QD Take 1 [place] (FLOMAX) 1-08 capsule Methodi 0.4 mg 00:00: (0.[address] capsule 00 total) by mouth daily. pantoprazol 2018- Yes 40mg QD Take 1 [place] e 1-08 tablet (40 Methodi (PROTONIX) 00:00: mg total) st 40 MG EC 00 by mouth tablet daily. metoprolol 2019- No 25mg QD Take 1 [place] succinate 1-08 01-08 tablet (25 Met hodi XL 00:00: 23:59 mg total) st (TOPROL-XL) 00 :00 by mouth 25 mg 24 hr daily. tablet ezetimibe 2019- No 10mg QD Take 1 [place] (ZETIA) 10 03-10 tablet (10 Me thodi mg tablet 00:00: 23:59 mg total) st 00 :00 by mouth nightly. Procedures This patient has no known procedures. Plan of Care Planned Activity Planned Date Details Comments Source Future Scheduled 2019-10-03 INFLUENZA VACCINE [place] [facility] Test 00:00:00 [code = INFLUENZA VACCINE] Future Scheduled 2008 65+ PNEUMOCOCCAL [place] [employer] Test 00:00:00 VACCINE (2 of 2 - PPSV23) [code = 65+ PNEUMOCOCCAL VACCINE (2 of 2 - PPSV23)] Future Scheduled 1993 COLONOSCOPY SCREENING [place] [facility] Test 00:00:00 [code = COLONOSCOPY SCREENING] Future Scheduled 1993 SHINGLES VACCINES (#1) [place] [facility] Test 00:00:00 [code = SHINGLES VACCINES (#1)] Future Scheduled 1953 DIABETIC FOOT EXAM [place] [facility] Test 00:00:00 [code = DIABETIC FOOT EXAM] Future Scheduled 1945 DIABETIC RETINAL EYE Saadia ston [employer] Test 00:00:00 EXAM [code = DIABETIC RETINAL EYE EXAM] Encounters Start End Encounter Admission Attending Care Care Encounter Source Date/Time Date/Time Type Type Clinicians Facility Department ID 2019-08-13 2019-08-13 Office CARLOS Davis [id number] 13:28:52 13:43:52 Visit Rinku Cope [facility] [id number] IAY [id number] [facility] [id number] AND [facility] Results This patient has no known results.
--- OUTSIDE RECORDS SUMMARY | 2019-08-28 17:14 | XMS REPORT | Summary of Care ---
:1945 Author Organization [facility] Address [address] [place] [address] Care Team Providers Name Role Phone Pcp, Patient Does Not Have A Primary Care Provider +1-000-00 0-0000 Reason for Visit Reason Comments Re-evaluation Encounter Details Date Type Department Care Team Description 08/13/2019 Office Visit [facility] Rinku Davis Squamous cell carcinoma of skin (Primary Dx); Dermatology, Marlene Cope MD History of nonmelanoma skin cancer [address] 2660 [facility] [id number] [place], [place] [phone] Allergies No Known Allergiesdocumented as of this encounter (statuses as of 08/13/2019) Medications Medication Sig Dispensed Refills Start Date [...] as of this encounter (statuses as of 08/13/2019) Active Problems Problem Noted Date History of nonmelanoma skin cancer 12/22/2012 documented as of this encounter (statuses as of 08/13/2019) Social History Tobacco Use Types Packs/Day Years Used Date Never Smoker Alcohol Use Drinks/Week oz/Week Comments Yes Sex Assigned at Date Recorded Not on file Job Start Date Occupation Industry Not on file Not on file Not on file Travel History Travel Start Travel End No recent travel history available. COVID-19 Exposure Response Date Recorded In the last month, have you been in contact with No / Unsure 08/13/2019 1:28 PM CDT someone who was confirmed or suspected to have Coronavirus / COVID-19? documented as of this encounter Last Filed Vital Signs Not on filedocumented in this encounter Progress Notes Julissa Parra MD - 08/13/2019 2:25 PM CDTCC: lesion on cheek HPI: Tacho Castillo is a 74 year old male with history of skin cancer, who presents for evaluation of lesion on cheek. At last visit, this site was biopsied and treated with ED&C at time of biopsy. 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 Today, he reports there was a small bump within the surgical site. He accidentally shaved over this site. He denies any pain, bleeding or pruritis. No treatments attempted. DIAGNOSIS: RIGHT CHEEK: ACANTHOLYTIC SQUAMOUS CELL CARCINOMA ED&C BY HISTORY Histories (+) hx skin cancer ROS: (-) = negative (+) = positive Constitutional: (-) pain Integumentary: (-) itching (-) color change (+) growth (-) rash Hematologic/Lymphatic: (-) bleeding Physical Exam General : No acute distress, awake, well developed, well nourished Psychiatric: Normal affect, mood, judgement, and thought content Neuro: Alert, oriented to person, place, situation FACE: Positive Assessment and Plan 1. Biopsy proven acantholytic SCC- R cheek - S/p ED&C, 07/23/2019 - Site is well healed with no concerns for recurrence today - No treatments indicated today - Monitor for any raised areas - Plan for MMS if lesion recurs History of skin cancer - Full skin exam not performed today SCC on R cheek s/p ED&C 04/2019 BCC on R shoulder s/p ED&C 04/2019 [...] of sun protection, regular skin exams RTC 4-5 weeks. Patient was seen with Dr. Davis, who agrees with plan of care. Julissa Parra MD [facility] Dermatology, PGY-2 1:47 PM documented in this encounter Plan of Treatment Date Type Specialty Care Team Description 09/24/2019 Office Visit Dermatology Eduard Davis MD [address] [place] [address] Health Maintenance Due Date Last Done Comments DTaP,Tdap,and Td Vaccines (1 - Tdap) 1954 Zoster Recombinant Vaccine (SHINGRIX) (1 of 2) 1993 Medicare Wellness Visit 2008 PNEUMOCOCCAL VACCINES 65+ (1 of 2 - PCV13) 2008 INFLUENZA VACCINE (Season Ended) 2019 Depression Screening 04/28/2020 04/28/2019 documented as of this encounter Results Not on filedocumented in this encounter Visit Diagnoses Diagnosis Squamous cell carcinoma of skin - Primar y Squamous cell carcinoma of skin, site un specified History of nonmelanoma skin cancer Personal history of other malignant neop lasm of skin documented in this encounter Insurance Payer Benefit Plan / Subscriber ID Effective Phone Address T ype Group Dates MEDICARE MEDICARE PART xxxxxxxxxxx 2008-Pre [phone] [address] [place] yang A & B sent [phone] ANNA COLEMAN [id number] [facility] [id number] 1993-Pre [address] [facility] sent [phone] Supplement MEDICARE [place] SUPPLEMENT ANNA GRUBBS [id number] documented as of this encounter
--- OUTSIDE RECORDS SUMMARY | 2019-08-28 17:14 | XMS REPORT | Summary of Care ---
:1945 Author Organization [facility] Address [address] [place] [address] Care Team Providers Name Role Phone Pcp, Patient Does Not Have A Primary Care Provider +1-000-00 0-0000 Reason for Visit Reason Comments Evaluation lesion face Encounter Details Date Type Department Care Team Description 07/23/2019 Office Visit [facility] Rinku Davis eratosis (Primary Dx); Dermatology, Marlene Cope MD Neoplasm of uncertain behavior of skin; [address] History of nonmelanoma skin cancer 26[address] [facility] [id number] [place], [place] Entrance [address], [address] [address] [place], [place] [phone] [phone] Allergies No Known Allergiesdocumented as of this [...] scribing for, and in the presence of iRnku Davis MD and resident Julissa Parra MD; Rinku Davis MD and Dr. Julissa Parra performed and/or ordered the services described here-in. Stephanie Baldwin 07/23/2019 10:23 I, Dr. Julissa Parra, personally performed and/or ordered the services described in this documentation, as scribed by Stephanie Baldwin in my presence, and it is both accurate and complete. Julissa Parra MD [facility] Dermatology, PGY-2 10:28 AM documented in this encounter Plan of Treatment Date Type Specialty Care Team Description 09/24/2019 Office Visit Dermatology Eduard Davis MD [address] [place], [place] [address] Health Maintenance Due Date [...] RALPH edicare A & B sent [phone] ANNA COLEMAN [phone] [facility] [id number] 1993-Pre [address] [facility] sent [phone] Supplement MEDICARE [place] SUPPLEMENT ANNA GRUBBS [id number] documented as of this encounter
--- OUTSIDE RECORDS SUMMARY | 2019-08-28 17:14 | XMS REPORT | Summary of Care ---
:1945 Author Organization [facility] Address [address] [place] [address] Care Team Providers Name Role Phone Pcp, Patient Does Not Have A Primary Care Provider +1-000-00 0-0000 Reason for Visit Reason Comments Re-evaluation Encounter Details Date Type Department Care Team Description 08/13/2019 Office Visit [facility] Rinku Davis Squamous cell carcinoma of skin (Primary Dx); Dermatology, Marlene Cope MD History of nonmelanoma skin cancer [address] 2660 [facility] [id number] [address], [place] [phone] Allergies No Known Allergiesdocumented as of [...] with plan of care. Julissa Parra MD [facility] Dermatology, PGY-2 1:47 PM documented in this encounter Plan of Treatment Date Type Specialty Care Team Description 09/24/2019 Office Visit Dermatology Eduard Davis MD [address] [place] [address] Health Maintenance Due Date Last Done [...] RALPH yang A & B sent [phone] ANNA COLEMAN [phone] [facility] [id number] 1993-Pre [address] [facility] sent [phone] Supplement MEDICARE [place] SUPPLEMENT ANNA GRUBBS [id number] documented as of this encounter
--- NOTE | 2019-08-28 17:17 | ER ---
Nurse's Notes [facility] Name: Tacho Lundy Age: 74 yrs Sex: Male : 1945 Arrival Date: 08/28/2019 Time: 13:33 Bed 26 Private MD: Diagnosis: Fever, unspecified;Dyspnea;Type 2 diabetes mellitus-uncontrolled;Weakness;Bronchitis, not specified as acute or chronic;Unspecified kidney failure-acute on chronic Presentation: 08/27 13:55 Chief complaint: Patient states: "I've been coughing a lot with a lot of congestion for ca1 the last 2-3 days". Caregiver says, "But now he has been feeling very tired, does not want to eat, does not want to get up and always sleepy. He also doesn't have taste. This morning he had a fever of 100.3F". Denies SOB. Denies diarrhea. Caregiver states, "last night he had a chest pain". Coronavirus screen: Surgical mask placed on patient. Patient moved to private room, placed in contact and droplet isolation with eye protection until further assessment. Patient reports a cough. Patient denies shortness of breath or difficulty breathing. Patient reports a measured and/or subjective temperature greater than 100.4F. Patient denies travel on a cruise ship or to a country the [facility] currently lists as an affected area. Patient denies contact with known and/or suspected case of COVID-19. Ebola Screen: Patient negative for fever greater than or equal to 101.5 degrees Fahrenheit, and additional compatible Ebola Virus Disease symptoms Patient denies exposure to infectious person. Patient denies travel to an Ebola-affected area in the 21 days before illness onset. No symptoms or risks identified at this time. Initial Sepsis Screen: Does the patient meet any 2 criteria? No. Patient's initial sepsis screen is negative. Does the patient have a suspected source of infection? No. Patient's initial sepsis screen is negative. Risk Assessment: Do you want to hurt yourself or someone else? Patient reports no desire to harm self or others. Onset of symptoms was August 28, 2019. 13:55 Method Of Arrival: Wheelchair ca1 13:55 Acuity: CORRY 3 ca1 Triage Assessment: 16:03 General: Behavior is calm, cooperative. ls4 Historical: - Allergies: 14:00 No Known Allergies; ca1 - Home Meds: 14:04 Enalapril 40 mg Oral 1 tab once daily [Active]; Lasix 20 mg Oral tab 1 tab once daily ca1 [Active]; carvedilol 12.5 mg oral tab 1 tab 2 times per day [Active]; pantoprazole 40 mg Oral TbEC 1 tab once daily [Active]; ezetimibe-simvastatin oral oral 1 tab once daily [Active]; aspirin 81 mg Oral chew 1 tab once daily [Active]; magnesium oxide 400 mg oral cap twice a day [Active]; Nexium 20 mg Oral cpDR 1 cap once daily [Active]; Hydrocodone-Acetaminophen Oral as needed [Active]; 14:09 Levemir 100 unit/mL subcutaneous soln [Active]; Novolog 100 unit/mL Sub-Q soln [Active];ca1 - PMHx: 14:00 Chronic pain; Diabetes - NIDDM; Hypertension; ca1 14:09 Diabetes - IDDM; ca1 - PSHx: 14:00 back x 3; ca1 - Immunization history:: Adult Immunizations up to date, Pneumococcal vaccine is up to date, Flu vaccine is up to date. - Social history:: Smoking status: Patient denies any tobacco usage or history of. - Family history:: not pertinent. Screenin:01 Abuse screen: Denies threats or abuse. Denies injuries from another. Nutritional ls4 screening: No deficits noted. Tuberculosis screening: No symptoms or risk factors identified. Fall Risk Total Horton Fall Scale indicates High Risk Score (45 or more points). Fall prevention measures have been instituted. Side Rails Up X 2 Placed Close to Nursing Station Frequent Obs/Assessments Occuring As available patient and family educated on Fall Prevention Program and Strategies. Assessment: 15:01 General: Appears in no apparent distress. comfortable. ls4 15:01 Pain: Denies pain. Neuro: Level of Consciousness is awake, alert, obeys commands, ls4 Reports weakness generalized with fatigue. Cardiovascular: Reports fatigue, Denies chest pain, Capillary refill < 3 seconds Patient's skin is warm and dry. Edema is absent. Chest pain is denied. Respiratory: Airway is patent Respiratory effort is labored, Respiratory pattern is regular, Breath sounds with crackles bilaterally. in left lower lobe and right lower lobe the patient has mild shortness of breath. GI: Abdomen is non-distended, Bowel sounds present X 4 quads. Abd is soft and non tender X 4 quads. Reports upper abdominal pain, Patient currently denies constipation, diarrhea, intolerance of fluids, intolerance of food, nausea, vomiting. : No deficits noted. No signs and/or symptoms were reported regarding the genitourinary system. Derm: Skin is thin, with poor turgor Skin is dry, Skin is normal, Skin temperature is warm. Musculoskeletal: Circulation, motion, and sensation intact. Capillary refill < 3 seconds, Range of motion: intact in all extremities, Swelling absent. 16:00 Reassessment: Patient appears in no apparent distress at this time. Patient and/or ls4 family updated on plan of care and expected duration. Pain level reassessed. Patient is alert, oriented x 3, equal unlabored respirations, skin warm/dry/pink. Patient denies pain at this time. 17:00 Reassessment: Patient appears in no apparent distress at this time. Patient and/or ls4 family updated on plan of care and expected duration. Pain level reassessed. Patient is alert, oriented x 3, equal unlabored respirations, skin warm/dry/pink. Pt repositioned, warm blanket given Patient denies pain at this time. 18:00 Reassessment: Patient appears in no apparent distress at this time. Patient and/or ls4 family updated on plan of care and expected duration. Pain level reassessed. Patient is alert, oriented x 3, equal unlabored respirations, skin warm/dry/pink. 20:58 Reassessment: Patient appears in no apparent distress at this time. Patient and/or ls4 family updated on plan of care and expected duration. Pain level reassessed. Patient is alert, oriented x 3, equal unlabored respirations, skin warm/dry/pink. Patient denies pain at this time. 20:58 Reassessment:. ls4 20:59 Reassessment: PT FOUND ON FLOOR BY THIS NURSE. PT ASSESSED AND CAN MOVE ALL ls4 EXTREMITIES. STATES HE Was TRYING TO USE URINAL AND SLIPPED OFF BED. PT STATED HE HAD LEFT HIP TENDERNESS TO PALPATION. PT DENIES HITTING HEAD AND DENIES ANY OTHER PAIN. PT ASSIST BACK INTO BED BY SHAWN HALEY PCT AND THIS NURSE. HIP CT SCAN ORDERED. Vital Signs: 13:55 BP 138 / 57; Pulse 66; Resp 16 S; Temp 99.3(O); Pulse Ox 97% on R/A; Weight 79.38 kg ca1 (R); Height 5 ft. 9 in. (175.26 cm) (R); Pain 0/10; 15:00 BP 159 / 71; Pulse 66; Resp 16; Pulse Ox 99% on R/A; Pain 0/10; ls4 16:00 BP 175 / 67; Pulse 68; Resp 19; Pulse Ox 98% on R/A; ls4 17:44 BP 197 / 69; dh4 17:54 BP 170 / 84; Pulse 72; Resp 26; Temp 98.9(O); Pulse Ox 99% on R/A; Pain 0/10; ls4 20:00 BP 141 / 77; Pulse 69; Resp 16; Pulse Ox 97% on R/A; Pain 0/10; ls4 20:55 BP 157 / 54; Pulse 77; Resp 14; Temp 98.3(O); Pulse Ox 99% on R/A; Pain 0/10; ls4 13:55 Body Mass Index 25.84 (79.38 kg, 175.26 cm) ca1 ED Course: 13:33 Patient arrived in ED. ag5 14:00 Triage completed. ca1 14:01 Arm band placed on right wrist. ca1 14:07 Herbie Cerda MD is Attending Physician. keila 14:14 Kristel Plascencia, CINDY is Primary Nurse. ls4 14:53 XRAY Chest (1 view) In Process Unspecified. EDMS 15:04 No apparent distress. ls4 15:04 No provider procedures requiring assistance completed. Inserted saline lock: 22 gauge ls4 in left antecubital area, using aseptic technique. Blood collected. 15:04 Patient maintains SpO2 saturation greater than 95% on room air. ls4 16:01 Patient has correct armband on for positive identification. Bed in low position. Call ls4 light in reach. Side rails up X 1. groundwater monitoring technician on. Pulse ox on. Warm blanket given. Verbal reassurance given. Diet: Patient given a diabetic meal tray. 17:07 PT-INR Sent. ls4 17:07 Basic Metabolic Panel Sent. ls4 17:07 CBC with Diff Sent. ls4 17:07 LFT's Sent. ls4 17:07 Magnesium Sent. ls4 17:07 NT PRO-BNP Sent. ls4 17:13 Prince Mascorro MD is Hospitalizing Provider. keila 21:27 Hip Left 2 View XRAY Sent. ls4 21:27 Pelvis XRAY Sent. ls4 Administered Medications: 15:10 Drug: NS 0.9% 500 ml Route: IV; Rate: bolus; Site: left forearm; ls4 15:10 Drug: Rocephin 1 grams Route: IV; Rate: per protocol; Site: left forearm; ls4 15:20 Drug: NS 0.9% 1000 ml Route: IV; Rate: 125 ml/hr; Site: left forearm; ls4 15:20 Drug: Zithromax 500 mg Route: IVPB; Infused Over: 1 hrs; Site: left forearm; ls4 15:54 Drug: NS 0.9% 1000 ml Route: IV; Rate: 1 bolus; Site: left forearm; ls4 16:32 Drug: Tylenol 650 mg Route: PO; ls4 16:42 Drug: SOLU-Medrol 125 mg Route: IVP; Site: left forearm; ls4 16:45 Drug: Albuterol 2.5 mg Route: Inhalation; ls4 16:45 Drug: AtroVENT Aerosol 0.5 mg Route: Inhalation; ls4 16:48 Drug: Insulin Regular Human 10 units {Co-Signature: ls4 (Kristel Plascencia RN).} Route: IVP; sg Site: left forearm; Outcome: 17:16 Decision to Hospitalize by Provider. keila 22:55 Patient left the ED. sg Signatures: Dispatcher [employer] EDMS Tim Edwards RN RN sg Anderson, Corey, MD MD cha Stewart, Lisa, RN RN ls4 Debby Tristan RN RN [facility] Stephanie Davidson Shawn Devi [facility] Kristel Plascencia RN ls4 Corrections: (The following items were deleted from the chart) 14:00 13:55 Pulse 66bpm; Resp 16bpm; Spontaneous; Pulse Ox 97% RA; Temp 99.3F Oral; 79.38 kg ca1 Reported; Height 5 ft. 9 in. Reported; BMI: 25.8; Pain 0/10; ca1 21:12 20:57 BP 141 / 77; Pulse 71bpm; Resp 22bpm; Pulse Ox 97% RA; Pain 0/10; ls4 ls4
--- NOTE | 2019-08-28 17:17 | EDPHYS ---
Physician Documentation [facility] Name: Tacho Lundy Age: 74 yrs Sex: Male : 1945 Arrival Date: 08/28/2019 Time: 13:33 Bed 26 Private MD: BHAVANA Physician Herbie Cerda HPI: 08/27 14:24 This 74 yrs old Male presents to ER via Wheelchair with complaints of Cough, keila Fever. 14:24 The patient or guardian reports cough, difficulty breathing, flu symptoms, arthralgias, keila low-grade fever, myalgias, no appetite. Onset: The symptoms/episode began/occurred 3 day(s) ago. Severity of symptoms: At their worst the symptoms were mild, moderate, in the emergency department the symptoms are unchanged. Modifying factors: The symptoms are alleviated by nothing, the symptoms are aggravated by exertion, talking. Associated signs and symptoms: Pertinent positives: rhinorrhea, sore throat. The patient has experienced similar episodes in the past, a few times. Historical: - Allergies: 14:00 No Known Allergies; ca1 - Home Meds: 14:04 Enalapril 40 mg Oral 1 tab once daily [Active]; Lasix 20 mg Oral tab 1 tab once daily ca1 [Active]; carvedilol 12.5 mg oral tab 1 tab 2 times per day [Active]; pantoprazole 40 mg Oral TbEC 1 tab once daily [Active]; ezetimibe-simvastatin oral oral 1 tab once daily [Active]; aspirin 81 mg Oral chew 1 tab once daily [Active]; magnesium oxide 400 mg oral cap twice a day [Active]; Nexium 20 mg Oral cpDR 1 cap once daily [Active]; Hydrocodone-Acetaminophen Oral as needed [Active]; 14:09 Levemir 100 unit/mL subcutaneous soln [Active]; Novolog 100 unit/mL Sub-Q soln [Active];ca1 - PMHx: 14:00 Chronic pain; Diabetes - NIDDM; Hypertension; ca1 14:09 Diabetes - IDDM; ca1 - PSHx: 14:00 back x 3; ca1 - Immunization history:: Adult Immunizations up to date, Pneumococcal vaccine is up to date, Flu vaccine is up to date. - Social history:: Smoking status: Patient denies any tobacco usage or history of. - Family history:: not pertinent. ROS: 14:24 Constitutional: Negative for fever, chills, and weight loss, Eyes: Negative for injury, keila pain, redness, and discharge, ENT: Negative for injury, pain, and discharge, Neck: Negative for injury, pain, and swelling, Cardiovascular: Negative for chest pain, palpitations, and edema, Abdomen/GI: Negative for abdominal pain, nausea, vomiting, diarrhea, and constipation, Back: Negative for injury and pain, : Negative for injury, bleeding, discharge, and swelling, MS/Extremity: Negative for injury and deformity, Skin: Negative for injury, rash, and discoloration, Neuro: Negative for headache, weakness, numbness, tingling, and seizure, Psych: Negative for depression, anxiety, suicide ideation, homicidal ideation, and hallucinations, Allergy/Immunology: Negative for hives, rash, and allergies, Endocrine: Negative for neck swelling, polydipsia, polyuria, polyphagia, and marked weight changes, Hematologic/Lymphatic: Negative for swollen nodes, abnormal bleeding, and unusual bruising. 14:24 Respiratory: Positive for cough, dyspnea on exertion, shortness of breath, wheezing, inspiratory, expiratory. Exam: 14:24 Constitutional: This is a well developed, well nourished patient who is awake, alert, keila and in no acute distress. Head/Face: Normocephalic, atraumatic. Eyes: Pupils equal round and reactive to light, extra-ocular motions intact. Lids and lashes normal. Conjunctiva and sclera are non-icteric and not injected. Cornea within normal limits. Periorbital areas with no swelling, redness, or edema. ENT: Nares patent. No nasal discharge, no septal abnormalities noted. Tympanic membranes are normal and external auditory canals are clear. Oropharynx with no redness, swelling, or masses, exudates, or evidence of obstruction, uvula midline. Mucous membranes moist. Neck: Trachea midline, no thyromegaly or masses palpated, and no cervical lymphadenopathy. Supple, full range of motion without nuchal rigidity, or vertebral point tenderness. No Meningismus. Chest/axilla: Normal chest wall appearance and motion. Nontender with no deformity. No lesions are appreciated. Cardiovascular: Regular rate and rhythm with a normal S1 and S2. No gallops, murmurs, or rubs. Normal PMI, no JVD. No pulse deficits. Abdomen/GI: Soft, non-tender, with normal bowel sounds. No distension or tympany. No guarding or rebound. No evidence of tenderness throughout. Back: No spinal tenderness. No costovertebral tenderness. Full range of motion. Male : Normal genitalia with no discharge or lesions. Skin: Warm, dry with normal turgor. Normal color with no rashes, no lesions, and no evidence of cellulitis. MS/ Extremity: Pulses equal, no cyanosis. Neurovascular intact. Full, normal range of motion. Neuro: Awake and alert, GCS 15, oriented to person, place, time, and situation. Cranial nerves II-XII grossly intact. Motor strength 5/5 in all extremities. Sensory grossly intact. Cerebellar exam normal. Normal gait. Psych: Awake, alert, with orientation to person, place and time. Behavior, mood, and affect are within normal limits. 14:24 Respiratory: mild respiratory distress is noted, moderate respiratory distress is noted, Respirations: labored breathing, is not present, Breath sounds: bronchial sounds, decreased breath sounds, rhonchi, wheezing: expiratory Respiratory rate: 16 Vital Signs: 13:55 BP 138 / 57; Pulse 66; Resp 16 S; Temp 99.3(O); Pulse Ox 97% on R/A; Weight 79.38 kg ca1 (R); Height 5 ft. 9 in. (175.26 cm) (R); Pain 0/10; 15:00 BP 159 / 71; Pulse 66; Resp 16; Pulse Ox 99% on R/A; Pain 0/10; ls4 16:00 BP 175 / 67; Pulse 68; Resp 19; Pulse Ox 98% on R/A; ls4 17:44 BP 197 / 69; dh4 17:54 BP 170 / 84; Pulse 72; Resp 26; Temp 98.9(O); Pulse Ox 99% on R/A; Pain 0/10; ls4 20:00 BP 141 / 77; Pulse 69; Resp 16; Pulse Ox 97% on R/A; Pain 0/10; ls4 20:55 BP 157 / 54; Pulse 77; Resp 14; Temp 98.3(O); Pulse Ox 99% on R/A; Pain 0/10; ls4 13:55 Body Mass Index 25.84 (79.38 kg, 175.26 cm) ca1 MDM: 14:07 Patient medically screened. [facility] 14:26 Differential Diagnosis: Bronchitis Influenza Upper Respiratory Infection Sinusitis keila Pharyngitis Viral Syndrome Pneumonia. Data interpreted: monitor technician: rate is 66 beats/min, rhythm is normal sinus rhythm, Pulse oximetry: on room air is 97 %. Test interpretation: by ED physician or midlevel provider: ECG, plain radiologic studies. Counseling: I had a detailed discussion with the patient and/or guardian regarding: the historical points, exam findings, and any diagnostic results supporting the discharge/admit diagnosis, lab results, radiology results, the need for outpatient follow up, the need for further work-up and treatment in the hospital. 14:27 Data reviewed: vital signs, nurses notes, diagnostic data from outside facility, old [facility] medical records, lab test result(s), EKG, radiologic studies, plain films. 16:13 ED course: dw dr collier, please admit tp dr jiang. [facility] 16:16 Medication response: albuterol nebulizer treatment(s) markedly relieved the patient's keila wheezing. 17:24 ED course: Daughter is Suzie Espino . sn 18:26 Physician consultation: German Collier MD and will see patient in office, wants patient keila admitted to hospitalist, does not want the patient admitted. 18:32 ED course: pt fell out of bed, going to bathroom per patient, fall to left hip, normal keila rom, will xray hip and pelvis, dont expect fracture. 08/27 14:24 Order name: Basic Metabolic Panel [facility] 08/27 14:24 Order name: CBC with Diff [facility] 08/27 14:24 Order name: LFT's [facility] 08/27 14:24 Order name: Magnesium [facility] 08/27 14:24 Order name: NT PRO-BNP [facility] 08/27 14:24 Order name: PT-INR [facility] 08/27 14:24 Order name: Troponin (emerg Dept Use Only); Complete Time: 15:[address] [facility] 08/27 14:24 Order name: Procalcitonin; Complete Time: 15:[address] [facility] 08/27 14:24 Order name: Lactate; Complete Time: 15:[address] [facility] 08/27 14:24 Order name: Blood Culture Adult (2) [facility] 08/27 14:24 Order name: Strep; Complete Time: 16:[address] [facility] 08/27 14:24 Order name: Influenza Screen (a \T\ B); Complete Time: 16:[address] [facility] 08/27 14:24 Order name: COVID-19; Complete Time: 18:[address] [facility] 08/27 14:25 Order name: Basic Metabolic Panel; Complete Time: 15:40 [facility] 08/27 14:24 Order name: XRAY Chest (1 view); Complete Time: 15:[address] [facility] 08/27 14:25 Order name: CBC with Automated Diff; Complete Time: 18:25 [facility] 08/27 14:25 Order name: Liver (Hepatic) Function; Complete Time: 15:40 [facility] 08/27 14:25 Order name: Magnesium; Complete Time: 15:40 [facility] 08/27 14:25 Order name: NT PRO-BNP; Complete Time: 15:40 [facility] 08/27 14:25 Order name: Protime (+INR); Complete Time: 15:40 [facility] 08/27 15:52 Order name: Throat Culture [facility] 08/27 18:23 Order name: CBC Smear Scan; Complete Time: 18:25 [facility] 08/27 18:25 Order name: Pelvis XRAY [facility] 08/27 18:25 Order name: Hip Left [address] [facility] 08/27 19:33 Order name: RAD [facility] 08/27 19:33 Order name: RAD [facility] 08/27 20:15 Order name: Lactate Sepsis 2 HR Follow-up [facility] 08/27 21:47 Order name: Glucose, Ancillary Testing [facility] 08/27 22:44 Order name: Glucose, Ancillary Testing [facility] 08/27 14:24 Order name: EKG; Complete Time: 14:[address] [facility] 08/27 14:24 Order name: Cardiac monitoring; Complete Time: 15:[address] [facility] 08/27 14:24 Order name: EKG - Nurse/Tech; Complete Time: 15:[address] [facility] 08/27 14:24 Order name: IV Saline Lock; Complete Time: 17: [facility] 08/27 14:24 Order name: Labs collected and sent; Complete Time: 17: [facility] 08/27 14:24 Order name: O2 Per Protocol; Complete Time: 17:[address] [facility] 08/27 14:24 Order name: O2 Sat Monitoring; Complete Time: 17: [facility] 08/27 17:46 Order name: Labs - recollect needed: lactate sepsis due now; Complete Time: 20:59 iw Administered Medications: 15:10 Drug: NS 0.9% 500 ml Route: IV; Rate: bolus; Site: left forearm; ls4 15:10 Drug: Rocephin 1 grams Route: IV; Rate: per protocol; Site: left forearm; ls4 15:20 Drug: NS 0.9% 1000 ml Route: IV; Rate: 125 ml/hr; Site: left forearm; ls4 15:20 Drug: Zithromax 500 mg Route: IVPB; Infused Over: 1 hrs; Site: left forearm; ls4 15:54 Drug: NS 0.9% 1000 ml Route: IV; Rate: 1 bolus; Site: left forearm; ls4 16:32 Drug: Tylenol 650 mg Route: PO; ls4 16:42 Drug: SOLU-Medrol 125 mg Route: IVP; Site: left forearm; ls4 16:45 Drug: Albuterol 2.5 mg Route: Inhalation; ls4 16:45 Drug: AtroVENT Aerosol 0.5 mg Route: Inhalation; ls4 16:48 Drug: Insulin Regular Human 10 units {Co-Signature: ls4 (Kristel Plascencia RN).} Route: IVP; sg Site: left forearm; Disposition: 08/28 07:11 Co-signature as Attending Physician, Herbie Cerda MD I agree with the assessment and keila plan of care. Disposition: 08/28/19 17:16 Hospitalization ordered by Prince Ludwin for Inpatient Admission. Preliminary diagnosis are Fever, unspecified, Dyspnea, Type 2 diabetes mellitus - uncontrolled, Weakness, Bronchitis, not specified as acute or chronic, Unspecified kidney failure - acute on chronic. - Bed requested for Telemetry/MedSurg (Inpatient). - Status is Inpatient Admission. sg - Condition is Fair. - Problem is new. - Symptoms have improved. Signatures: Dispatcher [employer] Tim Hartley RN RN sg Anderson, Corey, MD MD cha Therrien, Shelly, HAND SPRAYER-C HAND SPRAYER-CsnSoco Rosenberg RN Rosa Smith RN Alannah Moise Lisa, RN RN ls4 Debby Tristan RN RN ca1 Lisa Stewart RN ls4 Corrections: (The following items were deleted from the chart) 08/27 17:20 17:16 Hospitalization Ordered by Prince Ludwin GUEVARA for Inpatient Admission. Preliminary eb diagnosis is Fever, unspecified; Dyspnea; Type 2 diabetes mellitus - uncontrolled; Weakness; Bronchitis, not specified as acute or chronic; Unspecified kidney failure - acute on chronic. Bed requested for Telemetry/MedSurg (Inpatient). Status is Inpatient Admission. Condition is Fair. Problem is new. Symptoms have improved. keila 19:05 17:20 08/28/2019 17:16 Hospitalization Ordered by Prince Ludwin GUEVARA for Inpatient cg Admission. Preliminary diagnosis is Fever, unspecified; Dyspnea; Type 2 diabetes mellitus - uncontrolled; Weakness; Bronchitis, not specified as acute or chronic; Unspecified kidney failure - acute on chronic. Bed requested for Telemetry/MedSurg (Inpatient). Status is Inpatient Admission. Condition is Fair. Problem is new. Symptoms have improved. eb 22:55 19:05 08/28/2019 17:16 Hospitalization Ordered by Prince Ludwin GUEVARA for Inpatient sg Admission. Preliminary diagnosis is Fever, unspecified; Dyspnea; Type 2 diabetes mellitus - uncontrolled; Weakness; Bronchitis, not specified as acute or chronic; Unspecified kidney failure - acute on chronic. Bed requested for Telemetry/MedSurg (Inpatient). Status is Inpatient Admission. Condition is Fair. Problem is new. Symptoms have improved. cg
[2019-08-28 18:22] LABS: Platelet Estimate DECR; Urine White Blood Cell Casts OK
[2019-08-28 18:23] LABS: Blood Morphology Comment NOTED (NOT SEEN); Poikilocytosis SLIGHT
--- NOTE | 2019-08-28 19:30 | RAD REPORT ---
EXAM DESCRIPTION: RAD - Hip Left 2 View - 08/28/2019 6:52 pm CLINICAL HISTORY: Left hip pain status post injury FINDINGS: No fracture or dislocation is seen. The bones are osteoporotic If the patient continues to have symptoms to suggest an occult fracture MRI would be recommended
--- NOTE | 2019-08-28 19:30 | RAD REPORT ---
EXAM DESCRIPTION: RAD - Pelvis - 08/28/2019 6:51 pm CLINICAL HISTORY: Pelvic pain status post injury FINDINGS: No fracture or dislocation is seen. The bones are osteoporotic If the patient continues to have symptoms to suggest an occult fracture MRI would be recommended
--- NOTE | 2019-08-28 21:36 | P.HP ---
Certification for Inpatient Patient admitted to: Observation With expected LOS: <2 Midnights Practitioner: I am a practitioner with admitting privileges, knowledge of patient current condition, hospital course, and medical plan of care. Services: Services provided to patient in accordance with Admission requirements found in Title 42 Section 412.3 of the Code of Federal Regulations Patient History Date of Service: 08/28/19 Reason for admission: Shortness of breath and cough History of Present Illness: 74-year-old gentleman with a history of hypertension and diabetes presented emergency department with a complaint of cough, shortness of breath and fever of 2 days duration. Patient stated his was also experiencing similar symptoms. She was discharged earlier today from the ED. He reports pleuritic chest pain, worse with coughing. There is a report patient was wheezing in the ED. No fever recorded in the ED. Chest x-ray shows no acute infiltrate. He has no leukocytosis. Lactic acid elevated to 2.5. Screen for CoVid 19 is obtained. Patient is placed under observation for further management. Allergies vancomycin Allergy (Verified 05/27/18 10:36) Itching/Hives/Rash Home Medications: Ezetimibe [Zetia*] 10 mg PO DAILY 05/23/18 Magnesium Oxide [Mag 0X*] 400 mg PO BID 05/23/18 Pantoprazole Sodium [Protonix] 40 mg PO DAILY 05/23/18 Furosemide [Lasix*] 20 mg PO DAILY 06/26/18 Simvastatin 40 mg PO BEDTIME 06/26/18 Aspirin 81 mg PO DAILY 06/09/19 Carvedilol [Coreg] 12.5 mg PO BID 06/09/19 Enalapril Maleate [Vasotec] 40 mg PO DAILY 06/09/19 Esomeprazole Mag Trihydrate [Nexium] 20 mg PO DAILY 06/09/19 Insulin Detemir [Levemir] 70 units SQ DAILY 06/09/19 Fluconazole [Diflucan] 100 mg PO DAILY #7 tablet 06/11/19 Glucerna Shake [Glucerna*] 237 ml PO TID #90 can 06/11/19 Megestrol [Megace] 10 ml PO DAILY 5 Days #50 ml 06/11/19 Ondansetron [Zofran] 4 mg PO Q6H PRN #20 tab 06/12/19 - Past Medical/Surgical History Diabetic: Yes -: CAD s/p Stent -: Arthritis -: HTN -: DM -: Skin cancer -: CABG -: Laminectomy -: Back sx -: Skin cancer sx - Family History Father -: Heart disease Mother -: Heart disease - Social History Alcohol use: Yes CD- Drugs: No Caffeine use: Yes Review of Systems Other: Except as documented, all other systems reviewed and negative. Physical Examination - Physical Exam General: Alert, In no apparent distress HEENT: Normocephalic, Mucous membr. moist/pink, Sclerae nonicteric Neck: Supple, JVD not distended Respiratory: Clear to auscultation bilaterally, Normal air movement Cardiovascular: No edema, Regular rate/rhythm, Normal S1 S2 Gastrointestinal: Normal bowel sounds, Soft and benign, No tenderness Musculoskeletal: No swelling, No erythema Integumentary: No rashes Neurological: Normal speech, Normal strength at 5/5 x4 extr - Studies Laboratory Data (last 24 hrs) 08/28/19 14:45: PT 12.3, INR 1.04 08/28/19 14:45: WBC 3.5 L, Hgb 14.1, Hct 43.1, Plt Count 80 L 08/28/19 14:45: Sodium 133 L, Potassium 5.1, BUN 19 H, Creatinine 1.67 H, Glucose 477 H*, Magnesium 2.6 H, Total Bilirubin 0.7, AST 63 H, ALT 40, Alkaline Phosphatase 244 H Microbiology Data (last 24 hrs): 08/28/19 14:56 Nasopharnyx Coronavirus COVID-19 PCR - Final 08/28/19 14:56 Nasopharnyx Influenza Type A Antigen Screen - Final 08/28/19 14:56 Nasopharnyx Influenza Type B Antigen Screen - Final 08/28/19 14:56 Throat Group A Streptococcus Rapid Screen - Final Assessment and Plan - Problems (Diagnosis) (1) Acute bronchitis Current Visit: Yes Status: Acute (2) Acute viral disease Current Visit: Yes Status: Acute (3) CAD (coronary artery disease) Current Visit: No Status: Acute (4) Hypertension Current Visit: No Status: Acute (5) Diabetes Current Visit: No Status: Acute - Plan Place under observation. Supportive measures. Empiric IV antibiotics for acute infective bronchitis. Droplet isolation. Follow COVID 19 test. Bronchodilators p.r.n. Continue home medications for CAD. Continue home insulin regimen. - Advance Directives Does patient have a Living Will: Yes Does patient have a Durable POA for Healthcare: Yes - Code Status/Comfort Care Code Status: Full Code
[2019-08-28] MEDS ORDERED: ACETAMINOPHEN 500 MG TAB PO PRN (23:12)
[2019-08-29] VITALS: BMI 25.1
[2019-08-29] MEDS: NA CHLORIDE 0.9% 1,000 ML IV SCH ×2 (00:33→15:06)
[2019-08-29] MEDS: HEPARIN 5000 UNIT/ML 1 ML VIAL SQ SCH ×3 (00:34→16:10)
[2019-08-29] MEDS: INSULIN -REGULAR HUMAN 50 UNIT/0.5 ML ML SQ SCH ×5 (00:35→22:40)
[2019-08-29] MEDS: HYDROCODONE/APAP 7.5/325 MG TAB PO PRN ×2 (00:36→15:42)
[2019-08-29] MEDS: HYDRALAZINE HCL 20 MG/ML VIAL IV PRN ×3 (01:23→16:10)
[2019-08-29 06:02] LABS: Urine Appearance CLEAR; Urine Bilirubin NEGATIVE (NEG); Urine Blood NEGATIVE (NEG); Urine Color YELLOW; Urine Glucose 3+ (NEG); Urine Protein TRACE (NEG); Urine Specific Gravity >=1.030 (1.005-1.030); Urine Urobilinogen 0.2 mg/dL (0.2-1.0)
[2019-08-29 06:12] LABS: Urine Microscopic Reflex ORDER UMIC
[2019-08-29 06:47] LABS: Absolute Lymphocytes (CBC) 0.4 K/uL (0.7-4.9); Basophils % 0.1 % (0-1.3); Hematocrit 37.1 % (39.6-49.0); Lymphocytes % 19.3 % (15.3-44.8); MPV 10.4 fL (7.6-11.3); RBC Red Blood Cell Count 4.04 M/uL (4.33-5.43)
[2019-08-29 06:54] LABS: Magnesium 2.3 mg/dL (1.8-2.4); Phosphorus 2.8 mg/dL (2.5-4.9); Potassium 4.6 mmol/L (3.5-5.1)
[2019-08-29 09:04] LABS: Urine Bacteria <20 /HPF (NONE SEEN); Urine Culture Reflex Order NOT NEEDED; Urine RBC <5 /HPF (NONE SEEN)
[2019-08-29] MEDS ORDERED: D50W 25 GM/50 ML SYRINGE/VIAL IV PRN (11:20)
[2019-08-29] MEDS ORDERED: GLUCAGON 1 MG/VIAL IM PRN (11:20)
[2019-08-29] MEDS ORDERED: ONDANSETRON 4 MG (ODT) TAB PO PRN (11:23)
--- NOTE | 2019-08-29 11:40 | P.PN ---
Subjective Date of Service: 08/29/19 Chief Complaint: Shortness of breath and cough Subjective: Other (Patient tested positive for cold med. He has no respiratory distress. He is on room air and saturating well. He is particularly concerned about his at home who is bed-bound. Patient is the primary caregiver.) Physical Examination - Vital Signs Temperature: 98.6 F Blood Pressure: 175/71 Pulse: 97 Respirations: 18 Pulse Ox (%): 97 - Physical Exam General: Cooperative, Other (tearful) HEENT: Atraumatic, Normocephalic, EOMI Neck: Supple Respiratory: Clear to auscultation bilaterally, Normal air movement Cardiovascular: Regular rate/rhythm, Normal S1 S2, Systolic murmur Gastrointestinal: Normal bowel sounds, Soft and benign, Non-distended Musculoskeletal: No clubbing, No swelling, No contractures, No erythema, No tenderness, No warmth Neurological: Normal speech, Normal tone, Normal affect - Studies Laboratory Data (last 24 hrs) 08/28/19 14:45: PT 12.3, INR 1.04 08/28/19 14:45: WBC 3.5 L, Hgb 14.1, Hct 43.1, Plt Count 80 L 08/28/19 14:45: Sodium 133 L, Potassium 5.1, BUN 19 H, Creatinine 1.67 H, Glucose 477 H*, Magnesium 2.6 H, Total Bilirubin 0.7, AST 63 H, ALT 40, Alkaline Phosphatase 244 H Microbiology Data (last 24 hrs): 08/28/19 14:56 Nasopharnyx Coronavirus COVID-19 PCR - Final 08/28/19 14:56 Nasopharnyx Influenza Type A Antigen Screen - Final 08/28/19 14:56 Nasopharnyx Influenza Type B Antigen Screen - Final 08/28/19 14:56 Throat Group A Streptococcus Rapid Screen - Final Assessment & Plan - Problems (Diagnosis) (1) COVID-19 Current Visit: Yes Status: Acute (2) Type 2 diabetes mellitus with hyperglycemia Current Visit: Yes Status: Acute (3) Acute bronchitis Current Visit: Yes Status: Acute (4) Benign prostate hyperplasia Current Visit: No Status: Acute (5) CAD (coronary artery disease) Current Visit: No Status: Acute (6) GERD (gastroesophageal reflux disease) Current Visit: No Status: Acute (7) Hyperlipidemia Current Visit: No Status: Acute (8) Hypertension Current Visit: No Status: Acute Physician Review Additional Text: Patient is a 74-year-old male with a known past medical history of coronary artery disease status post CABG, uncontrolled type 2 diabetes mellitus, hypertension and hyperlipidemia. He presented to the hospital with fever, cough and chest congestion. Chest x-ray is unremarkable but he tested positive for COVID 19. HE IS SATTING WELL ON ROOM AIR. HIS HOSPITAL COURSE HAS BEEN COMPLICATED BY UNCONTROLLED HYPERGLYCEMIA AND HYPERTENSION COVID 19 Lactic acidosis Type II DM with hyperglycemia Uncontrolled HTN CAD S/P CABG HLD BPH PLAN: CONTINUE azithromycin ISOLATION PRECAUTIONS FOR CORONAVIRUS as per standard of care Continue cautious NS infusion for lactic acidosis Lactate Patient is a poor candidate for anti coagulation due to thrombocytopenia Resume home dose of long-acting insulin (Levemir changed to Lantus) Continue insulin sliding scale Diabetic diet Resume home dose of antihypertensive agents I consulted social science instructor to help assist with community resources. Patient is the primary caregiver of his and fears he may not be able to afford for her higher level of needs.
[2019-08-29] MEDS: INSULIN GLARGINE 100 UNITS/ML SQ SCH (12:14)
[2019-08-29] MEDS: GLUCERNA SHAKE 237 ML CAN PO SCH ×2 (14:04→19:52)
[2019-08-29] MEDS ORDERED: AZITHROMYCIN IV 500 MG in NA CHLORIDE 0.9% 250 ML IVPB SCH (15:00)
[2019-08-29] MEDS ORDERED: CEFTRIAXONE/SWI 1gm 1 GM/10 ML SYR IV SCH (15:00)
[2019-08-29] MEDS: MAGNESIUM OXIDE 400 MG TAB PO SCH (19:51)
[2019-08-29] MEDS: carvediloL 12.5 MG TAB PO SCH (19:52)
[2019-08-29] MEDS ORDERED: ATORVASTATIN 20 MG TAB PO SCH (21:00)
[2019-08-29] MEDS ORDERED: HOME MED 1 EA UNK (Simvastatin [Simvastatin] 40 MG) PO SCH (21:00)
[2019-08-29] MEDS: DOCUSATE NA 100 MG CAP PO SCH (22:40)
[2019-08-29] MEDS ORDERED: TRAZODONE 50 MG TABLET ONE (22:43)
[2019-08-30] MEDS: HEPARIN 5000 UNIT/ML 1 ML VIAL SQ SCH ×2 (00:11→08:58)
[2019-08-30] MEDS: HYDROCODONE/APAP 7.5/325 MG TAB PO PRN (06:30)
[2019-08-30] MEDS: INSULIN GLARGINE 100 UNITS/ML SQ SCH (08:06)
[2019-08-30] MEDS: carvediloL 12.5 MG TAB PO SCH (08:06)
[2019-08-30] MEDS: MAGNESIUM OXIDE 400 MG TAB PO SCH (08:06)
[2019-08-30] MEDS: INSULIN -REGULAR HUMAN 50 UNIT/0.5 ML ML SQ SCH (08:07)
[2019-08-30] MEDS: DOCUSATE NA 100 MG CAP PO SCH (08:08)
[2019-08-30] MEDS: GLUCERNA SHAKE 237 ML CAN PO SCH (08:08)
[2019-08-30] MEDS ORDERED: MEGESTROL 400 MG/10 ML UCUP PO SCH (09:00)
[2019-08-30] MEDS ORDERED: EZETIMIBE 10 MG TAB PO SCH (09:00)
[2019-08-30] MEDS ORDERED: PANTOPRAZOLE 40MG TABLET PO SCH (09:00)
[2019-08-30] MEDS ORDERED: INSULIN DETEMIR 100 UNIT SQ SCH (09:00)
[2019-08-30] MEDS ORDERED: ASPIRIN 81 MG CHEWABLE TABLET PO SCH (09:00)
[2019-08-30 09:14] VITALS: TEMP 97.1
[2019-08-30 09:16] VITALS: O2SAT 97
[2019-08-30] MEDS ORDERED: AMLODIPINE 5 MG TAB PO ONE (09:37)
[2019-08-30] MEDS ORDERED: HYDRALAZINE HCL 25 MG TABLET PO ONE (09:37)
--- NOTE | 2019-08-30 09:52 | P.DS ---
Admission Date: 08/28/19 Discharge Date: 08/30/19 Disposition: ROUTINE DISCHARGE Discharge Condition: GOOD Reason for Admission: Shortness of breath and cough - Problems (1) Acute bronchitis Current Visit: Yes Status: Acute (2) COVID-19 Current Visit: Yes Status: Acute (3) Fall Current Visit: Yes Status: Acute (4) Type 2 diabetes mellitus with hyperglycemia Current Visit: Yes Status: Acute (5) Arthritis Current Visit: No Status: Acute (6) Back pain, chronic Current Visit: No Status: Acute (7) Benign prostate hyperplasia Current Visit: No Status: Acute Brief History of Present Illness: History of Present Illness: 74-year-old gentleman with a history of hypertension and diabetes presented emergency department with a complaint of cough, shortness of breath and fever of 2 days duration. Patient stated his was also experiencing similar symptoms. She was discharged earlier today from the ED. He reports pleuritic chest pain, worse with coughing. There is a report patient was wheezing in the ED. No fever recorded in the ED. Chest x-ray shows no acute infiltrate. He has no leukocytosis. Lactic acid elevated to 2.5. Screen for CoVid 19 is obtained. Patient is placed under observation for further management. Hospital Course: patient admitted for SOB . He was noted with positive Covid 19 status . He was admitted to observation status . His oxygenation remain adequate . His stay was complicated with persistent elevated BP and glucose levels . His levemir was a djusted from self reported 50 unit qam to 35 unit bid since report of hypoglycemia at home although none noted here . His BP Improved with added BP meds . He was also taken off megace since persistent hyperglycemia . He report issues with care for spouse and was advised to do self isolation and face mask wearing as much as possible . He will be dc home today and follow with PCP in 3 weeks advised Vital Signs/Physical Exam: Temp Pulse Resp BP Pulse Ox 97.1 F 76 18 189/68 H 98 08/30/19 08:00 08/30/19 08:06 08/30/19 08:00 08/30/19 08:06 08/30/19 08:00 General: Alert, In no apparent distress, Oriented x3 HEENT: Atraumatic, Normocephalic Neck: Supple, 2+ carotid pulse no bruit Respiratory: Clear to auscultation bilaterally, Normal air movement Cardiovascular: Normal pulses, Regular rate/rhythm, Normal S1 S2 Gastrointestinal: Normal bowel sounds, Soft and benign Neurological: Normal gait, Normal speech Laboratory Data at Discharge: WBC 2.0 K/uL (4.3-10.9) L D 08/29/19 06:00 Hgb 12.3 g/dL (13.6-17.9) L 08/29/19 06:00 Hct 37.1 % (39.6-49.0) L 08/29/19 06:00 Plt Count 64 K/uL (152-406) L 08/29/19 06:00 PT 12.3 SECONDS (9.5-12.5) 08/28/19 14:45 INR 1.04 08/28/19 14:45 Sodium 139 mmol/L (136-145) 08/29/19 06:00 Potassium 4.6 mmol/L (3.5-5.1) 08/29/19 06:00 BUN 24 mg/dL (7-18) H 08/29/19 06:00 Creatinine 1.26 mg/dL (0.55-1.3) 08/29/19 06:00 Glucose 357 mg/dL (74-106) H 08/29/19 06:00 Phosphorus 2.8 mg/dL (2.5-4.9) 08/29/19 06:00 Magnesium 2.3 mg/dL (1.8-2.4) 08/29/19 06:00 Total Bilirubin 0.7 mg/dL (0.2-1.0) 08/28/19 14:45 AST 63 U/L (15-37) H 08/28/19 14:45 ALT 40 U/L (12-78) 08/28/19 14:45 Alkaline Phosphatase 244 U/L (45-117) H 08/28/19 14:45 Home Medications: Ezetimibe [Zetia*] 10 mg PO DAILY 05/23/18 Magnesium Oxide [Mag 0X*] 400 mg PO BID 05/23/18 Pantoprazole Sodium [Protonix] 40 mg PO DAILY 05/23/18 Furosemide [Lasix*] 20 mg PO DAILY 06/26/18 Simvastatin 40 mg PO BEDTIME 06/26/18 Aspirin 81 mg PO DAILY 06/09/19 Carvedilol [Coreg] 12.5 mg PO BID 06/09/19 Glucerna Shake [Glucerna*] 237 ml PO TID #90 can 06/11/19 Ondansetron [Zofran (Odt)*] 4 mg PO Q6H PRN #20 tab 06/12/19 Amlodipine Besylate [Norvasc] 10 mg PO DAILY #30 tablet 08/30/19 Insulin Detemir [Levemir] 35 units SQ BID #1 bottle 08/30/19 Prednisone [Sterapred Ds] 10 mg PO DAILY #7 tab.ds.pk 08/30/19 guaiFENesin [Guaifenesin] 400 mg PO TID PRN #21 tablet 08/30/19 New Medications: guaiFENesin [Guaifenesin] 400 mg PO TID PRN #21 tablet PRN Reason: Cough Insulin Detemir [Levemir] 35 units SQ BID #1 bottle Amlodipine Besylate [Norvasc] 10 mg PO DAILY #30 tablet Prednisone [Sterapred Ds] 10 mg PO DAILY #7 tab.ds.pk Patient Discharge Instructions: - continue to monitor for fever. - TAKE YOUR MEDS PRECRIBED. - CHECK YOUR GLUCOSE regularly Diet: Low sodium Activity: Ad cristiano Time spent managing pt's care (in minutes): 35
[2019-08-30 10:45] VITALS: BP 161/68
[2019-08-30] MEDS ORDERED: TRAZODONE 50 MG TABLET PO ONE (22:31)
--- NOTE | 2019-09-01 12:35 | EKG ---
Test Date: 2019-08-28 Test Time: 16:31:39 Title Department Manager: PRAVEENA MEASUREMENT RESULTS: Intervals: Rate: 73 MO: 238 QRSD: 148 QT: 430 QTc: 473 [place]: P: 93 MO: 238 QRS: 263 T: 13 INTERPRETIVE STATEMENTS: Suspect arm lead reversal, interpretation assumes no reversal Sinus rhythm with 1st degree AV block Right bundle branch block Septal infarct, age undetermined Abnormal ECG Compared to ECG 06/08/2019 21:30:43 First degree AV block now present Myocardial infarct finding now present Electronically Signed On 09-01-19 12:33:24 CDT by Nba Dumont
== END 2019-08-30 11:00 | disposition home or self-care (01) | DRG 178 ==
LOC: ER 13:29 → ERHOLD 16:30 → 4TH 22:27
PROVIDERS: ADMIT Internal Medicine; ATTEND Internal Medicine
PROC: 8E0ZXY6 Isolation (ICD-10-PCS; principal; 2019-08-28)
DX: U07.1 COVID-19 (principal); E87.2 Acidosis; I10 Essential (primary) hypertension; Z88.1 Allergy status to other antibiotic agents; Z79.82 Long term (current) use of aspirin; Z79.4 Long term (current) use of insulin; Z79.899 Other long term (current) drug therapy; I25.10 Atherosclerotic heart disease of native coronary artery without angina pectoris; Z95.5 Presence of coronary angioplasty implant and graft; Z85.828 Personal history of other malignant neoplasm of skin; Z95.1 Presence of aortocoronary bypass graft; B34.9 Viral infection, unspecified; N40.0 Benign prostatic hyperplasia without lower urinary tract symptoms; K21.9 Gastro-esophageal reflux disease without esophagitis; E78.5 Hyperlipidemia, unspecified; E11.65 Type 2 diabetes mellitus with hyperglycemia; M19.90 Unspecified osteoarthritis, unspecified site; G89.29 Other chronic pain; M54.9 Dorsalgia, unspecified; J20.8 Acute bronchitis due to other specified organisms
CPT/HCPCS: 36415; 71045; 72170; 80048; 80076; 81003; 81015; 82947; 83605; 83735; 83880; 84100; 84145; 84484; 85025; 85610; 87040; 87070; 87081; 87804; 93005; 96374; 96375; 99285; J0360; J0456; J0696; J1644; J1815; J2930; J7030; J7040; U0002

== ENCOUNTER 2019-09-10 01:12 | Emergency (ER) | payer OTHER, MEDICARE ==
--- OUTSIDE RECORDS SUMMARY | 2019-09-10 01:16 | XMS REPORT | Clinical Summary ---
:1945 Author Organization [facility] Address [address] [place] [address] Care Team Providers Name Role Phone MD [...] Refill Internal Medicine Ivana Kelly MD after 09/09/2018 Family History Medical History Relation Name Comments [...] Additional history exists Implants Implanted Type Area Radiology Equipment Servicer Device Shelf Model / Identifier Expiration Serial / Lot Date Bone Matriz Osteocel Pro Large - [id number] - [id number] Human T issue N/A: NUVASIVE 01/11/2023 [id number] / Implanted: Qty: 1 on 06/03/2018 by Thomas Covarrubias MD at [facility] HO SPITAL Implants Spine [id number] / Lumbar LOT NA Drafton Dbm Orthoblend Small Defect 5cc - [id number] - [id number] Human Tissue N/A: N/A MEDTRONIC 12/23/2019 [id number] / Implanted: Qty: 1 on 06/03/2018 by Thomas Covarrubias MD at [facility] HOSPIT AL Implants SPINAL AND [id number] / BIOLOGICS LOT NA Modulus Xl, [id number] 10deg - [id number] IMPLANT N/A: N/A NUVAS AJAY SPINE 01/16/2022 [id number] / Implanted: Qty: 1 on 06/03/2018 by Thomas Covarrubias MD at [facility] HOSPITAL DEV ICES / [id number] Modulus Xl, [id number] 10deg - [id number] [id number] IMPLANT N/A: NUVAS AJAY SPINE 12/29/2022 [id number] / Implanted: Qty: 1 on 06/03/2018 by Thomas Covarrubias MD at [facility] HO SPITAL DEVICES Spine / Lumbar [id number] Mauricio [id number] 60mm Capped Mauricio 4.75mm Ccm - [id number] [id number] IMPLAN T N/A: N/A MEDTRONIC [id number] / Implanted: Qty: 1 on 06/03/2018 [facility] SOFAMOR DANEK / 7.5 50mm Solera Voyager Screw - [id number] [id number] IMPLANT N/A: N/A MEDT RONIC [id number] / Implanted: Qty: 1 on 06/03/2018 by Thomas Covarrubias MD at [facility] DEVICES SOFAMOR DANEK / Mauricio [id number] 65mm Capped Mauricio 4.75mm Ccm - [id number] [id number] IMPLAN T N/A: N/A MEDTRONIC [id number] / Implanted: Qty: 1 on 06/03/2018 by Thomas Covarrubias MD at [facility] DEVICES SOFAMOR DANEK / Material Bone Hmsts [id number] 2.5g Ostene - [id number] Orthopedic N/A: N/A 12/01/2022 [id number] / Implanted: Qty: 1 on 06/03/2018 by Thomas Covarrubias MD at [facility] Tra abi / Implants [id number] Screw Mas 4.75 Ext Tab Kaylie 6.5 X 55 - [id number] Spinal N/A: N/A MEDTRONIC [id number] / Implanted: Qty: 4 on 06/03/2018 by Thomas Covarrubias MD at [facility] Implants SPINAL AND / BIOLOGICS Set Screw 4.75mm Solera Perc Ti - [id number] Spinal N/A: N/A MEDTR ONIC [id number] / Implanted: Qty: 6 on 06/03/2018 by Thomas Covarrubias MD at [facility] AL Implants SOFAMOR DANEK / Screw Mas 4.75 Ext Tab Kaylie 7.5 X 55 - [id number] Spinal N/A: N/A MEDTRONIC [id number] / Implanted: Qty: 1 on 06/03/2018 by Thomas Covarrubias MD at [facility] Implants SPINAL AND / BIOLOGICS Kit Dil M5 Xlif - [id number] Spinal N/A: N/A NUVASIVE [id number] / Implanted: Qty: 1 on 06/03/2018 by Thomas Covarrubias MD at [facility] Imp lants / Tray Bpsy Sys 102mm Oncontrol - [id number] Surgical VIDACAR E JOSSY [id number] / Implanted: Qty: 1 on 05/30/2018 at [facility] HOSPITAL Implants; / Expanders; Extenders; Surgical Wires Pin Surgcl Percutns 100mm - [id number] Surgical N/A: N/A MEDTRONIC 03/07/2021 [id number] / Implanted: Qty: 1 on 06/03/2018 by Thomas Covarrubias MD at [facility] HOSPIT AL Implants; NAVIGATION / Expanders; TECHNOLOGIES [id number] Extenders; [place] Surgical Wires Explanted Type Area Radiology Equipment Servicer Device Identifier Shelf Exp iration Model / Serial Date / Lot Kamron / / [id number] Results Not on fileafter 09/09/2018 Insurance Payer Benefit Plan / Subscriber ID Effective Dates Phone Addre ss Type Group MEDICARE MEDICARE PART A xxxxxxxxxxx 2008-Present [place], [place] Medicare AND B AARP AARP SUPPLEMENT xxxxxxxxxx 1993-Present Commercial Advance Directives For more information, please contact: [phone] Type Date Recorded 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
--- OUTSIDE RECORDS SUMMARY | 2019-09-10 01:16 | XMS REPORT | Continuity of Care Document ---
:1945 Author Organization [facility] t Address [address] [place] [address] Care Team Providers Name Role Phone Mario GUEVARA Primary Care Physician Anatoliy Davis MD Attending Clinician Xavi Kelly MD Attending Clinician Payers Payer Name Policy Policy Number Effective Expiration Source Type Date Date MEDICAREMEDICARE PART xxxxxxxxxxx 2008 Oliver Flaherty AND 00:00:00 [facility] [place]03[place] AARPAARP xxxxxxxxxx 1993 [place] SUPPLEMENTxxxxxxxxxx2 00:00:00 Met [facility] [facility] Problems Condition Condition Condition Status Onset Resolution Last Treating Co mments Source Name Details Category Date Date Treatment Clinician Date Back pain Back pain Disease Active Saadia ston 3-27 [facility] 00:00: st 00 Uncontroll Uncontroll Disease Active 2018- H [facility] ed type 2 ed type 2 1-03 Meth elvia diabetes diabetes 00:00: st mellitus mellitus 00 with with peripheral peripheral neuropathy neuropathy Essential Essential Disease Active 2017-03 Saadia ston hypertensi hypertensi 2-28 Me thodi on on 00:00: st 00 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 [place] abscess abscess 2-14 Methodi 00:00: st 00 Leg Leg Disease Active 2017-03 [place] weakness, weakness, 1-19 Meth elvia bilateral bilateral 00:00: st 00 Iron Iron Disease Active [place] deficiency deficiency 7-25 Me thodi anemia anemia 00:00: st secondary secondary 00 to to inadequate inadequate dietary dietary iron iron intake intake Hospital [facility] Disease Active [place] discharge discharge 7-11 Meth elvia follow-up follow-up 00:00: st 00 Altered Altered Disease Active [place] mental mental 704 [facility] status, status, 00:00: st unspecifie unspecifie 00 d d Acute Acute Disease Active [place] alcoholic alcoholic 7-04 Meth elvia hepatitis hepatitis 00:00: st 00 Hyperkalem Hyperkalem Disease Active H gisselle ia ia 7- [facility]i 00:00: st 00 Lactic Lactic Disease Active [place] acidosis acidosis 7-04 Method i 00:00: st 00 Alcohol Alcohol Disease Active [place] abuse abuse 7-04 Method[facility] 00:00: st 00 Acute Acute Disease Active [place] renal renal 7-04 [facility] failure failure 00:00: [...] Miguel Kevin Natural mother Heart disease Miguel Rojasist Social History Social Habit Start Date Stop Date Quantity Comments Source Sex Assigned At [facility] ethodist Cigarettes smoked 2018-07-10 2018-07-10 Miguel Kevin current (pack per 00:00:00 00:00:00 day) - Reported Cigarette 2018-07-10 2018-07-10 Miguel Method ist pack-years 00:00:00 00:00:00 Alcohol intake 2018-07-10 2018-07-10 Current drinker [place] [facility] 00:00:00 00:00:00 of alcohol (finding) Alcohol Comment 2018-01-31 2018-01-31 3 week [facility] ethodist 00:00:00 00:00:00 History of tobacco 1991-09-05 Current some day Miguel Rojasist use 00:00:00 smoker Smoking Status Start Date Stop Date Source Current some day smoker 2018-07-10 00:00:00 Scott corado [facility] Medications Ordered Filled Start Stop Current Ordering [...] Take 25 mg Saadia ston (COZAAR) 25 5-09 by mouth Meth elvia MG tablet 15:34: daily. st 05 methocarbam Yes 500mg [id number] Take 500 [place] ol 5-09 [id number] mg by [facility] (ROBAXIN) 15:34: 3D mouth [...] mg tablet 15:34: nightly. st 05 naloxone Yes .2mg Infuse 0.5 Saadia ston (NARCAN) 4-05 mL (0.2 mg Metho di 0.4 mg/mL 00:00: total) st injection 00 into a venous catheter once as needed for opioid reversal or respirator y depression . furosemide 2018-2019- No 20mg QD Take 1 [place] [...] 1000mg QD Take 1 [place] acid, 06-06 tablet [facility] vitamin C, 00:00: 23:59 (1,000 mg s t (VITAMIN C) 00 :00 total) by 1000 MG mouth tablet daily. simvastatin 2019- No 40mg QD Take 1 Saadia ston (ZOCOR) 40 06-06-04 tablet (40 Me thodi MG tablet 00:00: 23:59 mg total) st 00 :00 by mouth nightly. NIFEdipine 2019- No 60mg QD Take 1 [place] XL 06-06 tablet (60 [facility] (PROCARDIA 00:00: 23:59 mg total) s t XL) 60 MG 00 :00 by mouth 24 hr daily. tablet tamsulosin 2018-0 Yes .4mg QD Take 1 [place] (FLOMAX) -08 capsule [facility] 0.4 mg 00:00: (0.[address] capsule 00 total) by mouth daily. pantoprazol 2018- Yes 40mg QD Take 1 [place] e 1-08 tablet (40 [facility] (PROTONIX) 00:00: mg total) st 40 MG EC 00 by mouth tablet daily. metoprolol 2018-2019- No 25mg QD Take 1 [place] succinate -08 01-08 tablet (25 Met hodi XL 00:00: 23:59 mg total) st (TOPROL-XL) 00 :00 by mouth 25 mg 24 hr daily. tablet ezetimibe 2019-0 2020- No 10mg QD Take 1 [place] (ZETIA) 10 03-10 tablet (10 Me thodi mg tablet 00:00: 23:59 mg total) st 00 :00 by mouth nightly. Procedures This patient has no known procedures. Plan of Care Planned Activity Planned Date Details Comments Source Future Scheduled 2019-10-03 INFLUENZA VACCINE [place] [facility] Test 00:00:00 [code = INFLUENZA VACCINE] Future Scheduled 2008 65+ PNEUMOCOCCAL [place] [facility] Test 00:00:00 VACCINE (2 of 2 - PPSV23) [code = 65+ PNEUMOCOCCAL VACCINE (2 of 2 - PPSV23)] Future Scheduled 1993 COLONOSCOPY SCREENING [place] [facility] Test 00:00:00 [code = COLONOSCOPY SCREENING] Future Scheduled 1993 SHINGLES VACCINES (#1) [place] [facility] Test 00:00:00 [code = SHINGLES VACCINES (#1)] Future Scheduled 1953 DIABETIC FOOT EXAM [place] [facility] Test 00:00:00 [code = DIABETIC FOOT EXAM] Future Scheduled 1945 DIABETIC RETINAL EYE Saadia ston [facility] Test 00:00:00 EXAM [code = DIABETIC RETINAL EYE EXAM] Encounters Start End Encounter Admission Attending Care Care Encounter Source Date/Time Date/Time Type Type Clinicians Facility Department ID 2019-08-13 2019-08-13 Office CARLOS Davis [id number] 13:28:52 13:43:52 Visit Rinku Cope [facility] [id number] IALTY [id number] [facility] [id number] AND [facility] Results This patient has no known results.
[2019-09-10] MEDS ORDERED: NA CHLORIDE 0.9% 500 ML ONE (03:08)
[2019-09-10] MEDS ORDERED: PIPER/TAZO/NS 3.375gm 3.375 GM/100 ML BAG ONE (03:09)
[2019-09-10] MEDS ORDERED: ALBUTEROL INHALER 60 PUFF/8 GM IH ONE (03:09)
[2019-09-10] MEDS ORDERED: AZITHROMYCIN 500 MG INJ IVPB ONE (03:48)
--- NOTE | 2019-09-10 03:48 | EDPHYS ---
Physician Documentation [facility] Name: Tacho Lundy Age: 74 yrs Sex: Male : 1945 Arrival Date: 09/10/2019 Time: 01:32 Bed 13 Private MD: ED Physician Herbie Cerda HPI: 09/09 02:19 This 74 yrs old Male presents to ER via EMS with complaints of dyspnea and keila hypoglycemia. 02:19 The patient has shortness of breath at rest, with light activity. Onset: The keila symptoms/episode began/occurred just prior to arrival. Duration: The symptoms are continuous, and are steadily getting worse. The patient's shortness of breath is aggravated by supine position. The patient or guardian reports cough, difficulty breathing. Modifying factors: The symptoms are alleviated by remaining still, the symptoms are aggravated by activity, lying flat. The patient or guardian reports hypoglycemia. Associated signs and symptoms: Pertinent positives: nausea. The patient presents with confusion, decreased mental status. Historical: - Allergies: 02:11 No Known Allergies; lp1 - Home Meds: 02:11 magnesium oxide 400 mg Oral cap twice a day [Active]; carvedilol 12.5 mg Oral tab 1 tab lp1 2 times per day [Active]; pantoprazole 40 mg Oral TbEC 1 tab once daily [Active]; Ferrous Gluconate Oral [Active]; lisinopril 40 mg Oral tab 1 tab once daily [Active]; furosemide 20 mg Oral tab 1 tab once daily [Active]; ezetimibe-simvastatin Oral 1 tab once daily [Active]; amlodipine 10 mg tab 1 tab once daily [Active]; prednisone 10 mg Oral tab once daily [Active]; Levemir 100 unit/mL subcutaneous soln 100 unit daily [Active]; Novolog 100 unit/mL Sub-Q soln 8 unit three times a day [Active]; - PMHx: 02:11 Chronic pain; Diabetes - IDDM; Hypertension; lp1 - PSHx: 02:11 Heart stents; CABG; lp1 - Immunization history:: Adult Immunizations up to date. - Social history:: Smoking status: Patient denies any tobacco usage or history of. - Family history:: not pertinent. ROS: 02:20 Constitutional: Negative for fever, chills, and weight loss, Eyes: Negative for injury, keila pain, redness, and discharge, ENT: Negative for injury, pain, and discharge, Neck: Negative for injury, pain, and swelling, Cardiovascular: Negative for chest pain, palpitations, and edema, Abdomen/GI: Negative for abdominal pain, nausea, vomiting, diarrhea, and constipation, Back: Negative for injury and pain, : Negative for injury, bleeding, discharge, and swelling, MS/Extremity: Negative for injury and deformity, Skin: Negative for injury, rash, and discoloration, Neuro: Negative for headache, weakness, numbness, tingling, and seizure. 02:20 Respiratory: Positive for cough, shortness of breath. Exam: 02:20 Constitutional: This is a well developed, well nourished patient who is awake, alert, keila and in no acute distress. Head/Face: Normocephalic, atraumatic. Eyes: Pupils equal round and reactive to light, extra-ocular motions intact. Lids and lashes normal. Conjunctiva and sclera are non-icteric and not injected. Cornea within normal limits. Periorbital areas with no swelling, redness, or edema. ENT: Nares patent. No nasal discharge, no septal abnormalities noted. Tympanic membranes are normal and external auditory canals are clear. Oropharynx with no redness, swelling, or masses, exudates, or evidence of obstruction, uvula midline. Mucous membranes moist. Neck: Trachea midline, no thyromegaly or masses palpated, and no cervical lymphadenopathy. Supple, full range of motion without nuchal rigidity, or vertebral point tenderness. No Meningismus. Chest/axilla: Normal chest wall appearance and motion. Nontender with no deformity. No lesions are appreciated. Cardiovascular: Regular rate and rhythm with a normal S1 and S2. No gallops, murmurs, or rubs. Normal PMI, no JVD. No pulse deficits. Abdomen/GI: Soft, non-tender, with normal bowel sounds. No distension or tympany. No guarding or rebound. No evidence of tenderness throughout. Back: No spinal tenderness. No costovertebral tenderness. Full range of motion. Male : Normal genitalia with no discharge or lesions. Skin: Warm, dry with normal turgor. Normal color with no rashes, no lesions, and no evidence of cellulitis. MS/ Extremity: Pulses equal, no cyanosis. Neurovascular intact. Full, normal range of motion. Neuro: Awake and alert, GCS 15, oriented to person, place, time, and situation. Cranial nerves II-XII grossly intact. Motor strength 5/5 in all extremities. Sensory grossly intact. Cerebellar exam normal. Normal gait. Psych: Awake, alert, with orientation to person, place and time. Behavior, mood, and affect are within normal limits. 02:20 Respiratory: mild respiratory distress is noted, Respirations: labored breathing, that is mild, Breath sounds: decreased breath sounds, rhonchi, that are mild, are located in both bases. 04:47 ECG was reviewed by the Attending Physician. [facility] Vital Signs: 02:06 BP 100 / 51; Pulse 77; Resp 20; Pulse Ox 88% on R/A; Weight 81.65 kg (R); Height 5 ft. lp1 9 in. (175.26 cm); 02:10 Pulse Ox 93% on 3 lpm NC; lp1 03:30 BP 100 / 63; Pulse 67; Resp 19; Pulse Ox 95% on R/A; ea 04:30 BP 108 / 58; Pulse 65; Resp 18; Temp 98.2; ea 05:55 BP 109 / 76; Pulse 71; Resp 18; Pulse Ox 98% ; ea 06:43 BP 96 / 50; Pulse 62; Resp 18; Pulse Ox 97% on R/A; ea 02:06 Body Mass Index 26.58 (81.65 kg, 175.26 cm) lp1 MDM: 01:32 Patient medically screened. [facility] 02:22 Data reviewed: vital signs, nurses notes, EMS record, diagnostic data from outside [facility] facility, cardiac enzymes, CBC, electrolytes, hepatic panel, radiologic studies, lab test result(s), EKG, radiologic studies, plain films. 09/09 02:05 Order name: Glucose, Ancillary Testing; Complete Time: 02:15 EDMS 09/09 02:18 Order name: Basic Metabolic Panel [facility] 09/09 02:18 Order name: CBC with Diff [facility] 09/09 02:18 Order name: LFT's [facility] 09/09 02:18 Order name: Magnesium [facility] 09/09 02:18 Order name: NT PRO-BNP [facility] 09/09 02:18 Order name: PT-INR [facility] 09/09 02:18 Order name: Troponin (emerg Dept Use Only) [facility] 09/09 02:18 Order name: Blood Culture Adult (2) [facility] 09/09 02:18 Order name: Lactate [facility] 09/09 04:44 Order name: CBC with Automated Diff; Complete Time: 05:22 EDMS 09/09 04:44 Order name: Protime (+INR); Complete Time: 04:45 EDMS 09/09 04:51 Order name: Basic Metabolic Panel; Complete Time: 04:58 EDMS 09/09 04:51 Order name: Liver (Hepatic) Function; Complete Time: 04:58 EDMS 09/09 02:18 Order name: XRAY Chest (1 view) [facility] 09/09 02:18 Order name: EKG; Complete Time: 21:13 [facility] 09/09 02:18 Order name: Cardiac monitoring; Complete Time: 04:41 [facility] 09/09 02:18 Order name: EKG - Nurse/Tech; Complete Time: 04:44 [facility] 09/09 04:51 Order name: Troponin (Emerg Dept Use Only); Complete Time: 04:58 EDMS 09/09 04:51 Order name: NT PRO-BNP; Complete Time: 04:58 EDMS 09/09 04:51 Order name: Magnesium; Complete Time: 04:58 EDMS 09/09 04:52 Order name: Lactate; Complete Time: 04:58 EDMS 09/09 05:20 Order name: Manual Differential; Complete Time: 05:22 EDMS 09/09 05:35 Order name: Glucose, Ancillary Testing; Complete Time: 06:00 EDMS 09/09 02:18 Order name: IV Saline Lock; Complete Time: 04:41 [facility] 09/09 02:18 Order name: Labs collected and sent; Complete Time: 04:41 [facility] 09/09 02:18 Order name: O2 Per Protocol; Complete Time: 04:41 [facility] 09/09 02:18 Order name: O2 Sat Monitoring; Complete Time: 04:41 [facility] 09/09 04:59 Order name: Blood Glucose Level; Complete Time: 05:25 [facility] EC:47 Rate is 83 beats/min. Rhythm is irregularly irregular. QRS Rougon is Normal. [place] interval keila is normal. QRS interval is prolonged. QT interval is normal. No Q waves. T waves are Normal. No ST changes noted. Clinical impression: Atrial Fibrillation. Administered Medications: 04:00 Drug: NS 0.9% 500 ml Route: IV; Rate: bolus; Site: right antecubital; lp1 04:20 Follow up: IV Status: Completed infusion; IV Intake: 500ml lp1 04:15 Drug: NS 0.9% 1000 ml Route: IV; Rate: 125 ml/hr; Site: left forearm; lp1 05:01 Follow up: IV Status: Infusion continued upon transfer ea 04:20 Drug: Zosyn 3.375 grams Route: IVPB; Infused Over: 60 mins; Site: left forearm; lp1 05:30 Follow up: Response: No adverse reaction; IV Status: Completed infusion ea 04:20 Drug: Albuterol HFA Inhaler 4 puffs Route: Inhalation; lp1 05:30 Follow up: Response: No adverse reaction ea 04:30 Drug: Zithromax 500 mg Route: IVPB; Infused Over: 1 hrs; Site: right antecubital; lp1 05:50 Follow up: Response: No adverse reaction; IV Status: Completed infusion ea 05:25 Drug: NS 0.9% 500 ml Route: IV; Rate: bolus; Site: right antecubital; rr5 06:30 Follow up: Response: No adverse reaction; IV Status: Completed infusion; IV Intake: ea 500ml Disposition: 09/10/19 03:44 Transfer ordered to [facility]. Diagnosis are Pneumonia due to other specified bacteria - left lower lobe pma, Hypoglycemia, unspecified, Type 1 diabetes mellitus, SARS-associated coronavirus as the cause of diseases classified elsewhere - covid positive, Hypoxemia. - Reason for transfer: Higher level of care. - Accepting physician is to [facility]. - Condition is Fair. - Problem is new. - Symptoms have improved. Signatures: Dispatcher [employer] EDHerbie Coyle MD MD cha Pena, Laura, RN RN lp1 Gisella Medina RN RN ea Roque, Raymond RN RN rr5 Corrections: (The following items were deleted from the chart) 03:51 03:44 09/10/2019 03:44 Transfer ordered to [facility]. Diagnosis is Pneumonia due keila to other specified bacteria - left lower lobe pma; Hypoglycemia, unspecified; Type 1 diabetes mellitus; SARS-associated coronavirus as the cause of diseases classified elsewhere - covid positive. Reason for transfer: Higher level of care. Accepting physician is to [facility]. Condition is Fair. Problem is new. Symptoms have improved. keila 05:00 03:51 09/10/2019 03:44 Transfer ordered to [facility]. Diagnosis is Pneumonia due keila to other specified bacteria - left lower lobe pma; Hypoglycemia, unspecified; Type 1 diabetes mellitus; SARS-associated coronavirus as the cause of diseases classified elsewhere - covid positive; Unspecified kidney failure - acute on chronic. Reason for transfer: Higher level of care. Accepting physician is to [facility]. Condition is Fair. Problem is new. Symptoms have improved. keila 06:55 05:00 09/10/2019 03:44 Transfer ordered to [facility]. Diagnosis is Pneumonia due ea to other specified bacteria - left lower lobe pma; Hypoglycemia, unspecified; Type 1 diabetes mellitus; SARS-associated coronavirus as the cause of diseases classified elsewhere - covid positive; Hypoxemia. Reason for transfer: Higher level of care. Accepting physician is to [facility]. Condition is Fair. Problem is new. Symptoms have improved. keila
--- NOTE | 2019-09-10 03:48 | ER ---
Nurse's Notes [facility] Name: Tacho Lundy Age: 74 yrs Sex: Male : 1945 Arrival Date: 09/10/2019 Time: 01:32 Bed 13 Private MD: Diagnosis: Pneumonia due to other specified bacteria-left lower lobe pma;Hypoglycemia, unspecified;Type 1 diabetes mellitus;SARS-associated coronavirus as the cause of diseases classified elsewhere-covid positive;Hypoxemia Presentation: 09/09 02:05 Chief complaint: EMS states: Called for patient who was unresponsive at home, blood lp1 sugar reading of "LO" by EMS; given x2 doses of D10 IV with increase in blood sugar to 310; Patient is COVID positive patient. 02:06 Coronavirus screen: COVID POSITIVE. Ebola Screen: No symptoms or risks identified at lp1 this time. Initial Sepsis Screen: Does the patient meet any 2 criteria? No. Patient's initial sepsis screen is negative. Does the patient have a suspected source of infection? No. Patient's initial sepsis screen is negative. Risk Assessment: Do you want to hurt yourself or someone else? Patient reports no desire to harm self or others. Onset of symptoms was September 10, 2019. 02:06 Method Of Arrival: EMS: [facility] lp1 02:06 Acuity: CORRY 3 lp1 02:12 Care prior to arrival: IV initiated. 20 GA, in the right antecubital area, Glucose lp1 check: 318. 02:12 Care prior to arrival: Medication(s) given: D10 500 ml total IV. lp1 Historical: - Allergies: 02:11 No Known Allergies; lp1 - Home Meds: 02:11 magnesium oxide 400 mg Oral cap twice a day [Active]; carvedilol 12.5 mg Oral tab 1 tab lp1 2 times per day [Active]; pantoprazole 40 mg Oral TbEC 1 tab once daily [Active]; Ferrous Gluconate Oral [Active]; lisinopril 40 mg Oral tab 1 tab once daily [Active]; furosemide 20 mg Oral tab 1 tab once daily [Active]; ezetimibe-simvastatin Oral 1 tab once daily [Active]; amlodipine 10 mg tab 1 tab once daily [Active]; prednisone 10 mg Oral tab once daily [Active]; Levemir 100 unit/mL subcutaneous soln 100 unit daily [Active]; Novolog 100 unit/mL Sub-Q soln 8 unit three times a day [Active]; - PMHx: 02:11 Chronic pain; Diabetes - IDDM; Hypertension; lp1 - PSHx: 02:11 Heart stents; CABG; lp1 - Immunization history:: Adult Immunizations up to date. - Social history:: Smoking status: Patient denies any tobacco usage or history of. - Family history:: not pertinent. Screenin:11 Abuse screen: Denies threats or abuse. Denies injuries from another. Nutritional lp1 screening: No deficits noted. Tuberculosis screening: No symptoms or risk factors identified. Fall Risk Total Horton Fall Scale indicates High Risk Score (45 or more points). Fall prevention measures have been instituted. Side Rails Up X 2 As available patient and family educated on Fall Prevention Program and Strategies. Assessment: 04:46 General: Appears uncomfortable, Behavior is calm, cooperative, appropriate for age. ea Pain: Denies pain. Neuro: Level of Consciousness is awake, alert, obeys commands, Oriented to person, place, time, situation. Cardiovascular: Patient's skin is warm and dry. Respiratory: Airway is patent Respiratory effort is even, unlabored, Respiratory pattern is regular, symmetrical. Derm: Skin is pink, warm \\T\\ dry. 05:43 Reassessment: Patient and/or family updated on plan of care and expected duration. Pain ea level reassessed. Patient is alert, oriented x 3, equal unlabored respirations, skin warm/dry/pink. 06:33 Reassessment: Patient and/or family updated on plan of care and expected duration. Pain ea level reassessed. Patient is alert, oriented x 3, equal unlabored respirations, skin warm/dry/pink. Report called to [facility]. Awaiting for EMS arrival Patient states feeling better. 06:57 Reassessment: Patient and/or family updated on plan of care and expected duration. Pain ea level reassessed. Patient is alert, oriented x 3, equal unlabored respirations, skin warm/dry/pink. Pt transferred to [facility], Pt left ED via stretcher per EMS. Tolerating well. Vital Signs: 02:06 BP 100 / 51; Pulse 77; Resp 20; Pulse Ox 88% on R/A; Weight 81.65 kg (R); Height 5 ft. lp1 9 in. (175.26 cm); 02:10 Pulse Ox 93% on 3 lpm NC; lp1 03:30 BP 100 / 63; Pulse 67; Resp 19; Pulse Ox 95% on R/A; ea 04:30 BP 108 / 58; Pulse 65; Resp 18; Temp 98.2; ea 05:55 BP 109 / 76; Pulse 71; Resp 18; Pulse Ox 98% ; ea 06:43 BP 96 / 50; Pulse 62; Resp 18; Pulse Ox 97% on R/A; ea 02:06 Body Mass Index 26.58 (81.65 kg, 175.26 cm) lp1 ED Course: 01:32 Patient arrived in ED. lp1 01:32 Herbie Cerda MD is Attending Physician. [facility] 01:48 Gisella Medina, CINDY is Primary Nurse. ea 02:07 Triage completed. lp1 02:07 Arm band placed on right wrist. lp1 02:10 Maintain EMS IV. Dressing intact. Good blood return noted. Site clean \\T\\ dry. Gauge \\T\\ lp 1 site: 20g to R AC. 02:11 Patient has correct armband on for positive identification. Bed in low position. Call lp1 light in reach. Side rails up X2. bus driver/monitor on. Pulse ox on. NIBP on. 04:00 Inserted saline lock: 20 gauge in left forearm, using aseptic technique. Blood lp1 collected. 04:00 Initial lab(s) drawn, by ne, sent to lab. First set of blood cultures drawn by ne. lp1 04:20 Second set of blood cultures drawn by ne. lp1 04:47 No provider procedures requiring assistance completed. Patient transferred, IV remains ea in place. Administered Medications: 04:00 Drug: NS 0.9% 500 ml Route: IV; Rate: bolus; Site: right antecubital; lp1 04:20 Follow up: IV Status: Completed infusion; IV Intake: 500ml lp1 04:15 Drug: NS 0.9% 1000 ml Route: IV; Rate: 125 ml/hr; Site: left forearm; lp1 05:01 Follow up: IV Status: Infusion continued upon transfer ea 04:20 Drug: Zosyn 3.375 grams Route: IVPB; Infused Over: 60 mins; Site: left forearm; lp1 05:30 Follow up: Response: No adverse reaction; IV Status: Completed infusion ea 04:20 Drug: Albuterol HFA Inhaler 4 puffs Route: Inhalation; lp1 05:30 Follow up: Response: No adverse reaction ea 04:30 Drug: Zithromax 500 mg Route: IVPB; Infused Over: 1 hrs; Site: right antecubital; lp1 05:50 Follow up: Response: No adverse reaction; IV Status: Completed infusion ea 05:25 Drug: NS 0.9% 500 ml Route: IV; Rate: bolus; Site: right antecubital; rr5 06:30 Follow up: Response: No adverse reaction; IV Status: Completed infusion; IV Intake: ea 500ml Intake: 04:20 IV: 500ml; Total: 500ml. lp1 06:30 IV: 500ml; Total: 1000ml. ea Outcome: 03:44 ER care complete, transfer ordered by . keila 05:41 Instructed on the need for transfer. ea 06:52 Transferred by ground EMS to [facility], Transfer form completed. ea 06:52 Condition: stable 06:55 Patient left the ED. ea Signatures: Herbie Cerda MD MD cha Pena, Laura, RN RN lp1 Gisella Medina RN RN ea Roque, Raymond, RN RN rr5 Corrections: (The following items were deleted from the chart) 04:43 04:15 Zosyn 3.375 grams IVPB in left forearm over 60 mins lp1 lp1
[2019-09-10] MEDS ORDERED: NA CHLORIDE 0.9% 200 ML IV ONE (03:49)
[2019-09-10] MEDS ORDERED: NA CHLORIDE 0.9% 1,000 ML ONE ×2 (03:50→05:22)
[2019-09-10 04:38] LABS: Absolute Lymphocytes (CBC) 0.6 K/uL (0.7-4.9); Basophils % 0.8 % (0-1.3); Hematocrit 38.5 % (39.6-49.0); Lymphocytes % 7.7 % (15.3-44.8); Protime INR 1.13; RBC Red Blood Cell Count 4.15 M/uL (4.33-5.43)
[2019-09-10 04:50] LABS: Albumin 2.3 g/dL (3.4-5.0); Bilirubin Direct 0.3 mg/dL (0-0.2); Bilirubin Total 0.5 mg/dL (0.2-1.0); Magnesium 2.1 mg/dL (1.8-2.4); Potassium 3.5 mmol/L (3.5-5.1); Protein, Total 6.8 g/dL (6.4-8.2); Troponin (Emerg Dept Use Only) 0.03 ng/mL (0.0-0.045)
[2019-09-10 05:20] LABS: Blood Morphology Comment NOT SEEN (NOT SEEN); Platelet Estimate ADEQ
[2019-09-10 07:07] VITALS: TEMP 98.2
[2019-09-10 07:11] VITALS: BP 96/50; O2SAT 97
--- NOTE | 2019-09-10 07:31 | RAD REPORT ---
EXAM DESCRIPTION: Rudy Single View09/10/2019 3:14 am CLINICAL HISTORY: Chest pain COMPARISON: August 2019 FINDINGS: Left lower lobe consolidation. Mild right basilar lung opacities Postsurgical changes involve the chest. Heart is normal size. Small to moderate hiatal hernia IMPRESSION: Left lower lobe consolidation with mild right basilar opacities probably pneumonia
== END 2019-09-10 06:55 | disposition short-term general hospital (02) ==
LOC: ER 01:12
DX: U07.1 COVID-19 (principal); J15.8 Pneumonia due to other specified bacteria; R09.02 Hypoxemia; E16.2 Hypoglycemia, unspecified; E10.8 Type 1 diabetes mellitus with unspecified complications
CPT/HCPCS: 87040 ×2; 85025; 80048; 36415; 83735; 85610; 82947 ×2; 80076; 83605; 84484; 83880; 71045; 99285; J0456; J2543; J7040; J7030 ×2

== ENCOUNTER 2020-05-15 08:08 | Emergency (ER) | payer OTHER, MEDICARE ==
--- OUTSIDE RECORDS SUMMARY | 2020-05-15 08:11 | XMS REPORT | Continuity of Care Document ---
:1945 Author Organization [facility] t Address [address] [place] [address] Care Team Providers Name Role Phone Jamel Martino DO Attending Clinician Anatoliy Davis MD Attending Clinician YESSI Attending Clinician Unavailable MARLENA Admitting Clinician Unavailable Payers Payer Name Policy Type Policy Number Effective Date Expiration Date S ource Problems This patient has no known problems. [...] s 00:00: [facility] Medications This patient has no known medications. Procedures This patient has no known procedures. Encounters Start End Encounter Admission Attending Care Care Encounter Source Date/Time Date/Time Type Type Clinicians Facility Department ID 2020-03-27 2020-03-27 Patient Gunner [facility] [id number] 00:00:00 00:00:00 Outreach [facility] [id number] [facility] [id number] [place] [id number] 2020-01-21 2020-01-21 Office Susan [facility] [id number] 11:30:37 11:44:38 Visit Rinku BAEZ [id number] JORGE [id number] [place] [id number] [facility] 2019-09-10 2019-09-14 Inpatient MUNIR DICKSON [facility] [id number] [place] 00:00:00 00:00:[address] Results This patient has no known results.
[2020-05-15 09:26] LABS: Absolute Lymphocytes (CBC) 0.5 K/uL (0.7-4.9); Lymphocytes % 9.6 % (15.3-44.8); RBC Red Blood Cell Count 3.56 M/uL (4.33-5.43)
[2020-05-15 09:36] LABS: Protime INR 1.45
[2020-05-15] MEDS ORDERED: NA CHLORIDE 0.9% 1,000 ML ONE (09:49)
[2020-05-15] MEDS ORDERED: FOLIC ACID 5 MG/ML VIAL ONE (09:49)
[2020-05-15 09:50] LABS: Blood Morphology Comment NOT SEEN (NOT SEEN); Platelet Estimate DECR; White Blood Cell Scan OK (OK)
--- NOTE | 2020-05-15 10:01 | RAD REPORT ---
EXAM DESCRIPTION: CT - Abdomen Pelvis Wo Contrast - 05/15/2020 9:20 am CLINICAL HISTORY: ABD PAIN COMPARISON: Abdomen Pelvis Wo Contrast dated 06/08/2019 TECHNIQUE: Axial [address] imaging of the abdomen and pelvis was performed without IV contrast. No IV contrast was given because of allergy, abnormal renal function, patient refusal or physician re quest. No oral contrast administered. All CT scans are performed using dose optimization technique as appropriate and may include automated exposure control or mA/KV adjustment according to patient size. FINDINGS: No pericardial effusion. No acute lung parenchymal process seen. Patient does have trace a lexis of pleural fluid on the left and a small pleural effusion on the right. Patient has a large hi atal hernia is again identified. Approximately 1/3 of the stomach is intrathoracic. Liver is abnormal with nodular capsule contour. Left lobe is relatively prominent compared to the rig ht. There are no focal lesions identifiable on noncontrast imaging. No splenomegaly or focal splenic finding. Cholelithiasis is again noted. Gallbladder wall is questionably edematous. There small amoun t of fluid present not specific for gallbladder related disease. Patient does have a small amount of ascites present. There is fluid sufficient for diagnostic paracentesis. This is not a significant malik ntity in terms of therapeutic paracentesis. No pancreatic mass lesions seen. Pancreatic atrophy and fatty infiltration into the pancreatic parenc hyma again noted. No hydronephrosis or suspicious renal mass. No significant adrenal finding. Isodense renal masses an d pyelonephritis cannot be excluded in the absence of IV contrast. The urinary bladder is without sig nificant finding. No gastric dilatation or wall thickening. Stomach assessment is limited due to the distortion by the hiatal hernia in the absence of intraluminal content. No dilated large or small bowel loops are ident ifiable. No active GI process seen. Appendix does not appear to be dilated. No free air or pneumatosis. No focal mass or bulky lymphadenopathy. Fat filled inguinal hernias are present. Fluid retention is present in the subcutaneous fatty tissues. Disc and bone degenerative changes are present. Surgical hardware is present in the lumbar spine. No pathologic bone process seen. Dense arterial tree calcifications are present. IMPRESSION: Cirrhosis or diffuse hepatic parenchymal disease of the liver without focal liver lesion s seen on noncontrast imaging. Ascites is present. This is adequate for diagnostic paracentesis. A therapeutic paracentesis would no t yield a large volume of fluid. No abscess or surgically emergent finding identified. Cholelithiasis is present but no definitive cho lecystitis. Fluid near the gallbladder is probably part of the ascites. Correlation can be made with any clinical symptoms suspicious for a gallbladder process. Full assessment is limited is the absence of IV contrast.
--- NOTE | 2020-05-15 10:15 | RAD REPORT ---
EXAM DESCRIPTION: RAD - Chest Single View - 05/15/2020 9:45 am CLINICAL HISTORY: Cough;Abdominal distention;Pain COMPARISON: CT chest May 15, 2020, two view chest October 2019 TECHNIQUE: AP portable chest image was obtained 05/15/2020 9:45 am . FINDINGS: Right lung field is clear of mass or consolidation. Interstitial pattern is increased slig htly. Focal oval-shaped mass density in the left midlung field is suspected to be fluid trapped withi n the fissure. Lung parenchymal mass density cannot be excluded. Follow-up CT chest imaging may be he lpful for definitive evaluation. Left lung field interstitial pattern is prominent similar to the rig ht. Sternotomy wires are in place. Hiatal hernia is again noted. Heart size is mildly prominent. Cent ral vasculature is increased slightly when adjusting for differences between portable and PA techniqu e. No pneumothorax. No large pleural effusion is present. Small pleural effusions are suspected. No acu te bony abnormality seen. No acute aortic findings suspected. IMPRESSION: Oval mass density left midlung field is probably fluid trapped within the fissure. Infil trate or mass in lung parenchyma not entirely excluded. Slight increase in interstitial opacification compared to October 2019. Patient may have a mild inters titial edema.
[2020-05-15 10:19] LABS: Albumin 2.7 g/dL (3.4-5.0); Bilirubin Direct 0.5 mg/dL (0-0.2); Potassium 4.1 mmol/L (3.5-5.1); Protein, Total 6.9 g/dL (6.4-8.2); Troponin (Emerg Dept Use Only) 0.03 ng/mL (0.0-0.045)
[2020-05-15] MEDS ORDERED: AZITHROMYCIN 500 MG INJ IVPB ONE (10:37)
[2020-05-15] MEDS ORDERED: CEFTRIAXONE/SWI 1gm 2 GM/20 ML SYR ONE (10:38)
[2020-05-15] MEDS ORDERED: NA CHLORIDE 0.9% 250 ML ONE (10:38)
--- NOTE | 2020-05-15 10:50 | RAD REPORT ---
EXAM DESCRIPTION: CT - Thorax Wo Con - 05/15/2020 10:37 am CLINICAL HISTORY: pna, left lung COMPARISON: THORAX WO CONTRAST dated 11/21/2011; Chest Single View dated 05/15/2020 TECHNIQUE: Axial 5 mm thick images of the chest were obtained without IV contrast. All CT scans are performed using dose optimization technique as appropriate and may include automated exposure control or mA/KV adjustment according to patient size. FINDINGS: No suspicious mass of the lung parenchyma. Fluid is trapped in the fissure on the left. Th is accounts for the mass density on the recent chest film. Minimal pleural fluid posteriorly in the l eft lung field. A larger but still relatively small pleural effusion is present on the right. Interst itial markings are mildly prominent and the patient could have a mild interstitial edema or interstit ial infiltrate process. No consolidation to suspect bacterial pneumonia. No pneumothorax. A few nonspecific mediastinal lymph nodes are present slightly more prominent than 2012 would still m ost likely reactive. No gross aortic or pulmonary artery finding suspected. No cardiomegaly or peric ardial effusion. Dense calcifications of the beaver coronary arteries noted. Patient has bypass surgi tavares changes evident. No chest wall mass or abnormal axillary lymphadenopathy. Large hiatal hernia is present. Upper abdomen images show cirrhosis and ascites. Abdomen findings are detailed on the separate CT abdomen study same date. IMPRESSION: Interstitial prominence suspected to be a mild interstitial edema or infiltrate. Mass density in the left lung field seen on the recent chest film represents fluid trapped in the fis sure. Patient has additional small right pleural effusion and trace posterior left pleural effusion.
[2020-05-15] MEDS ORDERED: FUROSEMIDE 20 MG/ 2ML VIAL ONE (11:07)
--- NOTE | 2020-05-15 11:45 | RAD REPORT ---
EXAM DESCRIPTION: US - Abdomen Exam Limited - 05/15/2020 11:33 am CLINICAL HISTORY: ABD PAIN COMPARISON: Abdomen Pelvis Wo Contrast dated 05/15/2020; Abdomen Pelvis Wo Contrast dated 0 FINDINGS: A 9 millimeter size gallstone is present in the dependent portion the gallbladder near the neck. No other measurable stones are significant sludge identifiable. Gallbladder wall thickening is present up to 5 mm in thickness. No gallbladder wall mass. Gallbladder wall thickening can be seen i n acute cholecystitis; however, wall thickening is commonly encountered as a secondary response to th e cirrhosis or diffuse hepatic parenchymal disease. Pericholecystic fluid is part of ascites. No common duct stone or biliary tree dilatation identified. IMPRESSION: A single 9 millimeter size gallstone identified with no other stones or significant slud ge seen. Gallbladder wall thickening is seen. This can be a result of acute cholecystitis or as a secondary re sponse to cirrhosis or chronic liver disease. No biliary tree abnormality.
[2020-05-15] MEDS ORDERED: ONDANSETRON 4 MG/2 ML VIAL ONE (12:04)
[2020-05-15] MEDS ORDERED: SPIRONOLACTONE 25 MG TABLET PO ONE (13:00)
[2020-05-15] MEDS ORDERED: SPIRONOLACTONE 25 MG TABLET ONE (13:08)
--- NOTE | 2020-05-15 13:20 | ER ---
Nurse's Notes [facility] Name: Tacho Lundy Age: 75 yrs Sex: Male : 1945 Arrival Date: 05/15/2020 Time: 08:12 Bed 19 Private MD: German Martin Diagnosis: Acute upper respiratory infection, unspecified;Unspecified cirrhosis of liver;Ascites;Cholelithiasis;Type 1 diabetes mellitus Presentation: 05/15 08:35 Chief complaint: SOB and bilateral leg swelling x 3 days. Coronavirus screen: At this hb time, the client does not indicate any symptoms associated with coronavirus-19. Ebola Screen: No symptoms or risks identified at this time. Risk Assessment: Do you want to hurt yourself or someone else? Patient reports no desire to harm self or others. Onset of symptoms. 08:35 Method Of Arrival: Ambulatory hb 08:36 Acuity: CORRY 3 ss 12:59 Initial Sepsis Screen: Does the patient meet any 2 criteria? No. Patient's initial hb sepsis screen is negative. Does the patient have a suspected source of infection? No. Patient's initial sepsis screen is negative. Historical: - Allergies: 09:20 vancomycin; hb - Home Meds: 09:20 amlodipine 10 mg tab 1 tab once daily [Active]; carvedilol 12.5 mg Oral tab 1 tab 2 hb times per day [Active]; ezetimibe-simvastatin Oral 1 tab once daily [Active]; Ferrous Gluconate Oral [Active]; furosemide 20 mg Oral tab 1 tab once daily [Active]; Levemir 100 unit/mL subcutaneous soln 100 unit daily [Active]; lisinopril 40 mg Oral tab 1 tab once daily [Active]; magnesium oxide 400 mg Oral cap twice a day [Active]; Novolog 100 unit/mL Sub-Q soln 8 unit three times a day [Active]; pantoprazole 40 mg Oral TbEC 1 tab once daily [Active]; prednisone 10 mg Oral tab once daily [Active]; - PMHx: 09:20 Chronic pain; Diabetes - IDDM; Hypertension; hb - PSHx: 09:20 Heart stents; CABG; hb - Immunization history:: Adult Immunizations up to date. - Family history:: not pertinent. - Social history:: Smoking status: Patient denies any tobacco usage or history of. Screenin:21 Abuse screen: Denies threats or abuse. Denies injuries from another. Nutritional hb screening: No deficits noted. Tuberculosis screening: No symptoms or risk factors identified. Fall Risk None identified. Assessment: 09:17 General: Appears in no apparent distress. Behavior is calm, cooperative. Pain: Pain hb currently is 5 out of 10 on a pain scale. Neuro: Level of Consciousness is awake, alert, obeys commands, Oriented to person, place, time, situation. Cardiovascular: Capillary refill < 3 seconds Patient's skin is warm and dry. 2+ pitting edema noted to BLEs. Respiratory: Respiratory effort is even, unlabored, Respiratory pattern is regular, symmetrical. GI: Abdomen is distended, Reports bloating. : No signs and/or symptoms were reported regarding the genitourinary system. EENT: No signs and/or symptoms were reported regarding the EENT system. Derm: Skin is pink, warm \T\ dry. Musculoskeletal: Reports back pain that is chronic. 10:56 Reassessment: Patient appears in no apparent distress at this time. No changes from hb previously documented assessment. Patient and/or family updated on plan of care and expected duration. Pain level reassessed. Patient is alert, oriented x 3, equal unlabored respirations, skin warm/dry/pink. 12:02 Reassessment: Pt c/o nausea, Dr. Cerda notified, Zofran administered as ordered. hb NAD. VSS. Awaiting lab results at this time. Vital Signs: 09:00 BP 142 / 91; Pulse 56; Resp 20; Temp 97.9; Pulse Ox 96% on R/A; Pain 7/10; hb 09:51 BP 175 / 79; Pulse 68; Resp 17; Pulse Ox 97% on R/A; bw 10:56 BP 173 / 71; Pulse 77; Resp 17; Pulse Ox 96% on R/A; hb 12:05 BP 164 / 70; Pulse 72; Resp 20; Pulse Ox 99% on R/A; bw ED Course: 08:12 Patient arrived in ED. mr 08:12 German Martin MD is Private Physician. mr 08:34 Herbie Cerda MD is Attending Physician. keila 08:37 Triage completed. ss 09:17 Laura Tavares, CINDY is Primary Nurse. hb 09:17 Arm band placed on. hb 09:20 CT Abd/Pelvis - Without Contrast: no iv , no oral In Process Unspecified. EDMS 09:45 XRAY Chest (1 view) In Process Unspecified. EDMS 10:36 CT Chest Wo Con In Process Unspecified. EDMS 11:33 US Abdomen Limited In Process Unspecified. EDMS 11:37 AMMONIA Sent. mh5 12:14 German Martin MD is Referral Physician. keila 12:16 Katina Augustine MD is Referral Physician. keila 12:47 Patient has correct armband on for positive identification. Placed in gown. Bed in low mh5 position. Call light in reach. Side rails up X2. Warm blanket given. campus monitor on. Pulse ox on. NIBP on. 12:47 IV discontinued, Pressure dressing applied. mh5 12:58 No provider procedures requiring assistance completed. hb 13:00 IV discontinued, intact, bleeding controlled, No redness/swelling at site. hb Administered Medications: Discontinued: NS 0.9% 1000 ml IV at 125 ml/hr continuous 09:38 Drug: NS 0.9% 1000 ml Route: IV; Rate: 125 ml/hr; Site: left hand; bw 09:38 Drug: Thiamine 100 mg Route: IV; Rate: bolus; Site: left hand; bw 10:55 Drug: Rocephin - (cefTRIAXone) 2 grams Route: IVPB; Infused Over: 30 mins; Site: left hb hand; 10:55 Drug: Zithromax (azithromycin) 500 mg Route: IVPB; Infused Over: 1 hrs; Site: left hand;hb 10:55 Drug: Lasix 20 mg Route: IVP; Site: left hand; hb 11:30 Follow up: Response: No adverse reaction hb 12:02 Drug: Zofran (Ondansetron) 4 mg Route: IVP; Site: left hand; bw 12:58 Follow up: Response: No adverse reaction hb 12:58 Drug: Spironolactone 25 mg Route: PO; hb 12:58 Follow up: Response: Medication administered at discharge. hb Outcome: 12:15 Discharge ordered by . keila 12:58 Discharged to home ambulatory. hb 12:58 Condition: stable 12:58 Discharge instructions given to patient, Instructed on discharge instructions, follow up and referral plans. medication usage, Demonstrated understanding of instructions, follow-up care, medications, Prescriptions given X 4. 13:00 Patient left the ED. hb Signatures: Dispatcher [employer] EDMS Herbie Cerda MD MD cha Rivera, [facility] Devika Taylor, CINDY RN Laura Ochoa RN RN hb Martinez, [facility] Ade Zarate RN RN
[2020-05-15 13:21] LABS: Urine Blood NEGATIVE (NEG); Urine Glucose TRACE (NEG); Urine Protein NEGATIVE (NEG); Urine Specific Gravity 1.015 (1.005-1.030)
--- NOTE | 2020-05-15 13:21 | EDPHYS ---
Physician Documentation [facility] Name: Tacho Lundy Age: 75 yrs Sex: Male : 1945 Arrival Date: 05/15/2020 Time: 08:12 Bed 19 Private MD: German Martin ED Physician Herbie Cerda HPI: 05/15 08:58 This 75 yrs old Male presents to ER via Unassigned with complaints of High keila Blood Pressure, Abdominal Swelling, Facial Swelling. 08:58 The patient has elevated blood pressure and discovered this at home. kiela 08:59 The patient presents with pain, swelling. The complaints affect the abdomen, right leg keila and left leg. Context: The problem was sustained at an unknown site. Onset: The symptoms/episode began/occurred 5 day(s) ago. Modifying factors: The symptoms are alleviated by elevating leg, the symptoms are aggravated by nothing. Associated signs and symptoms: The patient has no apparent associated signs or symptoms. The patient presents with abdominal distention in the upper abdomen, in the lower abdomen. Onset: The symptoms/episode began/occurred 5 day(s) ago. Modifying factors: The symptoms are aggravated by activity, The symptoms are alleviated by remaining still. Historical: - Allergies: 09:20 vancomycin; hb - Home Meds: 09:20 amlodipine 10 mg tab 1 tab once daily [Active]; carvedilol 12.5 mg Oral tab 1 tab 2 hb times per day [Active]; ezetimibe-simvastatin Oral 1 tab once daily [Active]; Ferrous Gluconate Oral [Active]; furosemide 20 mg Oral tab 1 tab once daily [Active]; Levemir 100 unit/mL subcutaneous soln 100 unit daily [Active]; lisinopril 40 mg Oral tab 1 tab once daily [Active]; magnesium oxide 400 mg Oral cap twice a day [Active]; Novolog 100 unit/mL Sub-Q soln 8 unit three times a day [Active]; pantoprazole 40 mg Oral TbEC 1 tab once daily [Active]; prednisone 10 mg Oral tab once daily [Active]; - PMHx: 09:20 Chronic pain; Diabetes - IDDM; Hypertension; hb - PSHx: 09:20 Heart stents; CABG; hb - Immunization history:: Adult Immunizations up to date. - Family history:: not pertinent. - Social history:: Smoking status: Patient denies any tobacco usage or history of. ROS: 08:59 Constitutional: Negative for fever, chills, and weight loss, Eyes: Negative for injury, keila pain, redness, and discharge, ENT: Negative for injury, pain, and discharge, Neck: Negative for injury, pain, and swelling, Cardiovascular: Negative for chest pain, palpitations, and edema, Respiratory: Negative for shortness of breath, cough, wheezing, and pleuritic chest pain, Back: Negative for injury and pain, : Negative for injury, bleeding, discharge, and swelling, Skin: Negative for injury, rash, and discoloration, Neuro: Negative for headache, weakness, numbness, tingling, and seizure, Psych: Negative for depression, anxiety, suicide ideation, homicidal ideation, and hallucinations, Allergy/Immunology: Negative for hives, rash, and allergies, Endocrine: Negative for neck swelling, polydipsia, polyuria, polyphagia, and marked weight changes, Hematologic/Lymphatic: Negative for swollen nodes, abnormal bleeding, and unusual bruising. 08:59 Abdomen/GI: Positive for abdominal pain, abdominal cramps, abdominal distension, of the right upper quadrant, left upper quadrant, right lower quadrant and left lower quadrant. 08:59 MS/extremity: Positive for swelling, of the right leg and left leg. Exam: 08:59 Constitutional: This is a well developed, well nourished patient who is awake, alert, keila and in no acute distress. Head/Face: Normocephalic, atraumatic. Eyes: Pupils equal round and reactive to light, extra-ocular motions intact. Lids and lashes normal. Conjunctiva and sclera are non-icteric and not injected. Cornea within normal limits. Periorbital areas with no swelling, redness, or edema. ENT: Nares patent. No nasal discharge, no septal abnormalities noted. Tympanic membranes are normal and external auditory canals are clear. Oropharynx with no redness, swelling, or masses, exudates, or evidence of obstruction, uvula midline. Mucous membranes moist. Neck: Trachea midline, no thyromegaly or masses palpated, and no cervical lymphadenopathy. Supple, full range of motion without nuchal rigidity, or vertebral point tenderness. No Meningismus. Chest/axilla: Normal chest wall appearance and motion. Nontender with no deformity. No lesions are appreciated. Cardiovascular: Regular rate and rhythm with a normal S1 and S2. No gallops, murmurs, or rubs. Normal PMI, no JVD. No pulse deficits. Respiratory: Lungs have equal breath sounds bilaterally, clear to auscultation and percussion. No rales, rhonchi or wheezes noted. No increased work of breathing, no retractions or nasal flaring. Back: No spinal tenderness. No costovertebral tenderness. Full range of motion. Male : Normal genitalia with no discharge or lesions. Skin: Warm, dry with normal turgor. Normal color with no rashes, no lesions, and no evidence of cellulitis. MS/ Extremity: Pulses equal, no cyanosis. Neurovascular intact. Full, normal range of motion. Neuro: Awake and alert, GCS 15, oriented to person, place, time, and situation. Cranial nerves II-XII grossly intact. Motor strength 5/5 in all extremities. Sensory grossly intact. Cerebellar exam normal. Normal gait. Psych: Awake, alert, with orientation to person, place and time. Behavior, mood, and affect are within normal limits. 08:59 Abdomen/GI: Inspection: distension, that is mild, Bowel sounds: normal, Palpation: mild abdominal tenderness, in the right upper quadrant and right lower quadrant, Liver: no appreciated palpable abnormalities, Hernia: not appreciated. 10:02 ECG was reviewed by the Attending Physician. [facility] Vital Signs: 09:00 BP 142 / 91; Pulse 56; Resp 20; Temp 97.9; Pulse Ox 96% on R/A; Pain 7/10; hb 09:51 BP 175 / 79; Pulse 68; Resp 17; Pulse Ox 97% on R/A; bw 10:56 BP 173 / 71; Pulse 77; Resp 17; Pulse Ox 96% on R/A; hb 12:05 BP 164 / 70; Pulse 72; Resp 20; Pulse Ox 99% on R/A; bw MDM: 08:34 Patient medically screened. [facility] 09:01 Differential diagnosis: contusion. Data reviewed: vital signs, nurses notes, lab test [facility] result(s), EKG, radiologic studies, CT scan, plain films. Data interpreted: patient monitor: rate is 77 beats/min, rhythm is regular, Pulse oximetry: on room air is 98 %. Test interpretation: by ED physician or midlevel provider: ECG, plain radiologic studies. Counseling: I had a detailed discussion with the patient and/or guardian regarding: the historical points, exam findings, and any diagnostic results supporting the discharge/admit diagnosis, lab results. 05/15 08:46 Order name: Basic Metabolic Panel [facility] 05/15 08:46 Order name: CBC with Diff [facility] 05/15 08:46 Order name: LFT's keila 05/15 08:46 Order name: Magnesium [facility] 05/15 08:46 Order name: NT PRO-BNP [facility] 05/15 08:46 Order name: PT-INR; Complete Time: 09:59 [facility] 05/15 08:46 Order name: Troponin (emerg Dept Use Only); Complete Time: 10:31 [facility] 05/15 08:46 Order name: Lipase; Complete Time: 10:31 [facility] 05/15 08:46 Order name: Basic Metabolic Panel; Complete Time: 10:31 EDID 05/15 08:46 Order name: CBC with Automated Diff; Complete Time: 09:59 EDID 05/15 08:46 Order name: Liver (Hepatic) Function; Complete Time: 10:31 EDID 05/15 08:46 Order name: Magnesium; Complete Time: 10:31 EDID 05/15 08:46 Order name: NT PRO-BNP; Complete Time: 10:31 EDID 05/15 09:31 Order name: CBC Smear Scan; Complete Time: 09:59 EDID 05/15 08:46 Order name: XRAY Chest (1 view); Complete Time: 10:31 [facility] 05/15 08:46 Order name: CT Abd/Pelvis - Without Contrast: no iv , no oral; Complete Time: 10:08 [facility] 05/15 10:00 Order name: Blood Culture Adult (2) [facility] 05/15 10:00 Order name: Lactate; Complete Time: 11:26 [facility] 05/15 10:02 Order name: CT Chest Wo Con; Complete Time: 11:26 [facility] 05/15 10:10 Order name: AMMONIA [facility] 05/15 10:10 Order name: US Abdomen Limited; Complete Time: 12:05 [facility] 05/15 10:11 Order name: Ammonia; Complete Time: 12:05 EDID 05/15 12:14 Order name: Urine Dipstick--Ancillary (enter results) 05/15 08:46 Order name: EKG; Complete Time: 08:46 [facility] 05/15 08:46 Order name: Cardiac monitoring; Complete Time: 09:38 [facility] 05/15 08:46 Order name: EKG - Nurse/Tech; Complete Time: 09:38 [facility] 05/15 08:46 Order name: IV Saline Lock; Complete Time: 09:30 [facility] 05/15 08:46 Order name: Labs collected and sent; Complete Time: 09: [facility] 05/15 08:46 Order name: O2 Per Protocol; Complete Time: : [facility] 05/15 08:46 Order name: O2 Sat Monitoring; Complete Time: 09: [facility] 05/15 08:46 Order name: Urine Dipstick-Ancillary (obtain specimen); Complete Time: 12:06 [facility] EC:02 Rate is 70 beats/min. Rhythm is regular. QRS [place] is Normal. [place] interval is normal. QRS keila interval is prolonged at 144 msec. QT interval is normal. No Q waves. T waves are Normal. No ST changes noted. Clinical impression: Abnormal EKG without significant change and No evidence of ischemia. Reviewed by me. Administered Medications: Discontinued: NS 0.9% 1000 ml IV at 125 ml/hr continuous 09:38 Drug: NS 0.9% 1000 ml Route: IV; Rate: 125 ml/hr; Site: left hand; bw 09:38 Drug: Thiamine 100 mg Route: IV; Rate: bolus; Site: left hand; bw 10:55 Drug: Rocephin - (cefTRIAXone) 2 grams Route: IVPB; Infused Over: 30 mins; Site: left hb hand; 10:55 Drug: Zithromax (azithromycin) 500 mg Route: IVPB; Infused Over: 1 hrs; Site: left hand;hb 10:55 Drug: Lasix 20 mg Route: IVP; Site: left hand; hb 11:30 Follow up: Response: No adverse reaction hb 12:02 Drug: Zofran (Ondansetron) 4 mg Route: IVP; Site: left hand; bw 12:58 Follow up: Response: No adverse reaction hb 12:58 Drug: Spironolactone 25 mg Route: PO; hb 12:58 Follow up: Response: Medication administered at discharge. hb Disposition: 05/15/20 12:15 Discharged to Home. Impression: Acute upper respiratory infection, unspecified, Unspecified cirrhosis of liver, Ascites, Cholelithiasis, Type 1 diabetes mellitus. - Condition is Stable. - Discharge Instructions: Ascites, Type 1 Diabetes Mellitus, Diagnosis, Adult, Diabetes Mellitus and Food, Alcoholic Liver Disease, [id number], Cough, Adult, [id number], Cough, Adult, Alcoholic Liver Disease, Type 1 Diabetes Mellitus, Self Care, Adult, Type 1 Diabetes Mellitus, Diagnosis, Adult, [id number]. - Prescriptions for Protonix 40 mg Oral Tablet - take 1 tablet by ORAL route once daily; 30 tablet. Lasix 20 mg Oral Tablet - take 1 tablet by ORAL route once daily; 20 tablet. Lactulose 10 gram/15 mL Oral Solution - take 15 milliliter by ORAL route once daily may increase to twice a day ti maintain 2 bowel movements daily; 150 milliliter. Spironolactone 25 mg Oral Tablet - take 1 tablet by ORAL route once daily; 30 tablet. Zithromax Z- John 250 mg Oral Tablet - take 1 tablet by ORAL route once daily for 4 days; 4 tablet. - Medication Reconciliation Form, Thank You Letter, Antibiotic Education, Prescription Opioid Use form. - Follow up: German Martin MD; When: 2 - 3 days; Reason: Recheck today's complaints, Continuance of care, Re-evaluation by your physician. Follow up: Katina Augustine MD; When: 2 - 3 days; Reason: Recheck today's complaints, Continuance of care, Re-evaluation by your physician. - Problem is new. - Symptoms have improved. Signatures: Dispatcher [employer] Herbie Rios MD MD cha Baxter, Heather, RN RN Ade Zarate RN RN Corrections: (The following items were deleted from the chart) 12:16 12:15 05/15/2020 12:15 Discharged to Home. Impression: Acute upper respiratory keila infection, unspecified; Unspecified cirrhosis of liver; Ascites; Cholelithiasis; Type 1 diabetes mellitus. Condition is Stable. Forms are Medication Reconciliation Form, Thank You Letter, Antibiotic Education, Prescription Opioid Use. Follow up: German Martin; When: 2 - 3 days; Reason: Recheck today's complaints, Continuance of care, Re-evaluation by your physician. Problem is new. Symptoms have improved. keila 13:00 12:16 05/15/2020 12:15 Discharged to Home. Impression: Acute upper respiratory hb infection, unspecified; Unspecified cirrhosis of liver; Ascites; Cholelithiasis; Type 1 diabetes mellitus. Condition is Stable. Forms are Medication Reconciliation Form, Thank You Letter, Antibiotic Education, Prescription Opioid Use. Follow up: German Martin; When: 2 - 3 days; Reason: Recheck today's complaints, Continuance of care, Re-evaluation by your physician. Follow up: Katina Augustine; When: 2 - 3 days; Reason: Recheck today's complaints, Continuance of care, Re-evaluation by your physician. Problem is new. Symptoms have improved. keila
[2020-05-16 11:55] VITALS: TEMP 97.9
[2020-05-16 11:58] VITALS: BP 164/70; O2SAT 99
== END 2020-05-15 13:00 | disposition home or self-care (01) ==
LOC: ER 08:08
DX: J06.9 Acute upper respiratory infection, unspecified (principal); R18.8 Other ascites; K80.20 Calculus of gallbladder without cholecystitis without obstruction; K74.60 Unspecified cirrhosis of liver; E10.9 Type 1 diabetes mellitus without complications; I10 Essential (primary) hypertension; Z95.1 Presence of aortocoronary bypass graft; Z79.4 Long term (current) use of insulin; Z88.3 Allergy status to other anti-infective agents
CPT/HCPCS: 93005; 87040 ×2; 85025; 80048; 36415; 82140; 83735; 87205; 85610; 80076; 83605; 81003; 84484; 83690; 83880; 71250; 74176; 71045; 76705; J1940; J0456; J0696; J7050; J7030; J2405; 96374; 96375; 99284

== ENCOUNTER 2020-11-28 17:41 | Inpatient (IN) | payer OTHER, MEDICARE ==
[2020-11-28] MEDS ORDERED: FAMOTIDINE 20 MG/2 ML VIAL IV ONE (18:19)
[2020-11-28] MEDS ORDERED: MULTIVITAMINS 10 ML VIAL (INJ) IV ONE (18:19)
[2020-11-28] MEDS ORDERED: THIAMINE 200 MG/2 ML INJ ONE (18:19)
[2020-11-28] MEDS ORDERED: NA CHLORIDE 0.9% 2,000 ML ONE (18:21)
[2020-11-28] MEDS ORDERED: FOLIC ACID 5 MG/ML VIAL ONE (18:21)
[2020-11-28] MEDS ORDERED: LIDOCAINE VISCOUS 2% SOLN 15 ML UDC ONE (18:28)
--- NOTE | 2020-11-28 18:30 | RAD REPORT ---
EXAM DESCRIPTION: RAD - Chest Single View - 11/28/2020 6:21 pm CLINICAL HISTORY: COUGH Chest pain. COMPARISON: Chest Single View dated 05/15/2020; Chest Pa And Lat (2 Views) dated 10/09/2019; Chest Sing le View dated 09/10/2019; Chest Single View dated 08/28/2019 FINDINGS: Portable technique limits examination quality. The lungs are grossly clear. The heart is normal in size. No displaced fractures.Sternotomy wires. IMPRESSION: No acute intrathoracic process suspected.
[2020-11-28 18:42] LABS: Protime INR 1.52
[2020-11-28 18:47] LABS: Absolute Lymphocytes (CBC) 0.4 K/uL (0.7-4.9); Basophils % 0.2 % (0-1.3); Hematocrit 37.7 % (39.6-49.0); Lymphocytes % 7.2 % (15.3-44.8); MPV 9.4 fL (7.6-11.3); RBC Red Blood Cell Count 4.07 M/uL (4.33-5.43)
[2020-11-28 18:54] LABS: Urine Blood 2+ (Negative); Urine Glucose 3+ (Negative); Urine Protein Negative (Negative); Urine pH 5.5 (5.0-7.0)
--- NOTE | 2020-11-28 19:01 | ER ---
Nurse's Notes [facility] Name: Tacho Lundy Age: 75 yrs Sex: Male : 1945 Arrival Date: 11/28/2020 Time: 17:47 Bed 13 Private MD: Diagnosis: Vomiting;Alcoholic cirrhosis of liver without ascites;Abdominal pain, Generalized;Weakness;Hypomagnesemia;Acute kidney failure, unspecified-on chronic;Type 1 diabetes mellitus with hyperglycemia-Anion Gap 17 Presentation: 11/28 17:50 Chief complaint: EMS states: Nausea and vomiting x 6 days and high blood sugar. kg Coronavirus screen: Vaccine status: Patient reports receiving the 2nd dose of the covid vaccine. Pfizer Patient reports receiving the 1st dose of the Covid vaccine. Pfizer. Ebola Screen: Patient negative for fever greater than or equal to 101.5 degrees Fahrenheit, and additional compatible Ebola Virus Disease symptoms Patient denies exposure to infectious person. Patient denies travel to an Ebola-affected area in the 21 days before illness onset. Initial Sepsis Screen: Does the patient meet any 2 criteria? No. Patient's initial sepsis screen is negative. Does the patient have a suspected source of infection? No. Patient's initial sepsis screen is negative. Risk Assessment: Do you want to hurt yourself or someone else? Patient reports no desire to harm self or others. Onset of symptoms was November 02, 2020. 17:50 Method Of Arrival: EMS: [facility] kg 17:50 Acuity: CORRY 3 kg 20:01 Note Soiled depends changed. Pt had loose BM x 1. Repositioned. Changed into gawn. df1 21:03 Note Left message for stepdaughter Suzie [phone]. Unable to complete home med df1 list. Requested she call back for further med history on patient. 22:23 Note Report called to Kalpesh WHITE on 2nd floor. df1 Triage Assessment: 18:09 General: Appears ill, Behavior is calm, cooperative, appropriate for age. Pain: kg Complains of pain in abdomen. Historical: - Allergies: 18:06 Vancomycin; kg - Home Meds: 18:06 amlodipine 10 mg tab 1 tab once daily [Active]; carvedilol 12.5 mg Oral tab 1 tab 2 kg times per day [Active]; ezetimibe-simvastatin Oral 1 tab once daily [Active]; Ferrous Gluconate Oral [Active]; furosemide 20 mg Oral tab 1 tab once daily [Active]; Levemir 100 unit/mL subcutaneous soln 100 unit daily [Active]; lisinopril 40 mg Oral tab 1 tab once daily [Active]; magnesium oxide 400 mg Oral cap twice a day [Active]; Novolog 100 unit/mL Sub-Q soln 8 unit three times a day [Active]; pantoprazole 40 mg Oral TbEC 1 tab once daily [Active]; prednisone 10 mg Oral tab once daily [Active]; - PMHx: 18:06 Chronic pain; Diabetes - IDDM; Hypertension; Cirrhosis of liver; kg 21:01 hernia; Cirrhosis of liver; back surgery; df1 - Immunization history:: Adult Immunizations up to date, Client reports receiving the 2nd dose of the Covid vaccine, Pfizer Client reports receiving the 1st dose of the Covid vaccine, [employer]. - Social history:: Smoking status: Patient/guardian denies using tobacco. - Family history:: not pertinent. Screenin:08 Abuse screen: Denies threats or abuse. Denies injuries from another. Nutritional kg screening: No deficits noted. Tuberculosis screening: No symptoms or risk factors identified. Fall Risk No fall in past 12 months (0 pts). Secondary diagnosis (15 points) Weakness. IV access (20 points). Ambulatory Aid- Crutches/Cane/Walker (15 pts). Gait- Weak (10 pts.). Mental Status- Oriented to own ability (0 pts). Total Horton Fall Scale indicates Low Risk Score (25-44 pts). Fall prevention measures have been instituted. Side Rails Up X 2 Placed close to Nursing Station Frequent Obs/Assesments occuring As available Patient and Family Educated on Fall Prevention Program and strategies. Vital Signs: 17:50 BP 155 / 98; Pulse 94; Resp 20; Temp 97.4(TE); Pulse Ox 100% ; Weight 62.14 kg (R); kg Height 5 ft. 9 in. (175.26 cm) (R); Pain 8/10; 20:01 BP 186 / 72; Pulse 87; Resp 18; Pulse Ox 100% on R/A; df1 17:50 Body Mass Index 20.23 (62.14 kg, 175.26 cm) kg ED Course: 17:47 Patient arrived in ED. as 17:49 Herbie Cerda MD is Attending Physician. keila 18:06 Triage completed. kg 18:09 Arm band placed on right wrist. kg 18:21 XRAY Chest (1 view) In Process Unspecified. EDMS 18:35 Mildred Diego, CINDY is Primary Nurse. kg 18:35 AMMONIA Sent. kg 18:35 Acetaminophen Sent. kg 18:35 Ptt, Activated Sent. kg 18:35 Salicylate Sent. kg 18:35 Lipase Sent. kg 18:53 Guerrero cath inserted, using sterile technique, 16 Fr., by ia, balloon inflated, to es2 gravity drainage, urine specimen collected. 18:58 Janet Ashby MD is Hospitalizing Provider. keila 19:27 Felipe Roche DO is Hospitalizing Provider. keila 20:17 Inserted saline lock: 20 gauge in left wrist, using aseptic technique. dh4 21:05 No provider procedures requiring assistance completed. Inserted saline lock: 20 gauge df1 in right antecubital area, using aseptic technique. 21:27 CT Abd/Pelvis - Without Contrast Sent. df1 22:11 Patient has correct armband on for positive identification. Placed in gown. Bed in low df1 position. Call light in reach. Side rails up X 1. 22:24 Patient admitted, IV remains in place. df1 Administered Medications: 18:35 Drug: Pepcid (famotidine) 20 mg Route: IVP; Site: right antecubital; kg 21:41 Follow up: Response: No adverse reaction df1 18:36 Drug: Thiamine 100 mg Route: IV; Rate: bolus; Site: right antecubital; kg 20:28 Follow up: Response: No adverse reaction df1 22:08 Follow up: IV Status: Completed infusion df1 18:37 Drug: foLIC Acid 1 mg Route: IVPB; Site: right antecubital; kg 20:30 Follow up: Response: No adverse reaction df1 22:08 Follow up: IV Status: Completed infusion df1 18:37 Drug: Banana Bag - (NS 0.9% 1000 ml, foLIC Acid 1 mg, Thiamine 100 mg, Multivitamin 1 kg amp) Route: IV; Rate: 150 ml/hr; Site: right antecubital; 18:53 Drug: morphine 4 mg {Note: Rass 1.} Route: IVP; Site: right antecubital; es2 20:29 Follow up: Response: No adverse reaction df1 18:53 Drug: Zofran (Ondansetron) 4 mg Route: IVP; Site: right antecubital; es2 20:29 Follow up: Response: No adverse reaction df1 19:20 Drug: NS 0.9% 1000 ml Route: IV; Rate: 1 bolus; Site: left wrist; df1 22:10 Follow up: IV Status: Completed infusion; IV Intake: 1000ml df1 20:26 Drug: NS 0.9% 1000 ml Route: IV; Rate: 1 bolus; Site: right antecubital; df1 20:26 Drug: Insulin Regular Human 10 units {Co-Signature: bc5 (Ashley Dumas RN).} Route: IVP; df1 Site: left hand; 20:29 Follow up: Response: No adverse reaction df1 20:27 Drug: Magnesium Sulfate 2 grams Route: IVPB; Infused Over: 2 hrs; Site: right df1 antecubital; 21:40 Follow up: Response: No adverse reaction; IV Intake: 50ml df1 22:07 Follow up: IV Status: Completed infusion; IV Intake: 50ml df1 20:27 Drug: LanTUS (insulin glargine) 30 units Route: Sub-Q; Site: abdomen; df1 21:40 Follow up: Response: No adverse reaction df1 20:28 Drug: Zofran (Ondansetron) 4 mg Route: IVP; Site: left hand; df1 20:29 Follow up: Response: No adverse reaction df1 Intake: 21:40 IV: 50ml; Total: 50ml. df1 22:07 IV: 50ml; Total: 100ml. df1 22:10 IV: 1000ml; Total: 1100ml. df1 Outcome: 19:00 Decision to Hospitalize by Provider. keila 22:23 Admitted to Med/surg accompanied by tech. df1 22:23 Condition: stable 22:23 Instructed on the need for admit. 22:24 Patient left the ED. df1 Signatures: Dispatcher [employer] EDHerbie Coyle MD MD cha Martinez, Amelia as Huhn, Donald dh4 Mildred Diego RN RN Tahira Pina df1 Alannah Flores RN RN 2 Amparo Gallo RN RN oh Ashley Dumas RN bc5 Corrections: (The following items were deleted from the chart) 20:17 19:01 CORONAVIRUS+ drawn and sent. arsalan VEGA
--- NOTE | 2020-11-28 19:01 | EDPHYS ---
Physician Documentation [facility] Name: Tacho Lundy Age: 75 yrs Sex: Male : 1945 Arrival Date: 11/28/2020 Time: 17:47 Bed 13 Private MD: BHAVANA Physician Herbie Cerda HPI: 11/28 18:49 This 75 yrs old Male presents to ER via EMS with complaints of vomiting and keila weakness, cant hold anything down. 18:49 The patient presents to the emergency department with nausea, vomiting, that is keila continuous, described as bilious. Onset: The symptoms/episode began/occurred 3 day(s) ago. Possible causes: unknown. The symptoms are aggravated by food , The symptoms are alleviated by nothing. remaining still. Associated signs and symptoms: Pertinent positives: abdominal pain, anorexia, nausea, vomiting. Severity of symptoms: At their worst the symptoms were moderate in the emergency department the symptoms are unchanged. The patient has experienced similar episodes in the past, multiple times. Historical: - Allergies: 18:06 Vancomycin; kg - Home Meds: 18:06 amlodipine 10 mg tab 1 tab once daily [Active]; carvedilol 12.5 mg Oral tab 1 tab 2 kg times per day [Active]; ezetimibe-simvastatin Oral 1 tab once daily [Active]; Ferrous Gluconate Oral [Active]; furosemide 20 mg Oral tab 1 tab once daily [Active]; Levemir 100 unit/mL subcutaneous soln 100 unit daily [Active]; lisinopril 40 mg Oral tab 1 tab once daily [Active]; magnesium oxide 400 mg Oral cap twice a day [Active]; Novolog 100 unit/mL Sub-Q soln 8 unit three times a day [Active]; pantoprazole 40 mg Oral TbEC 1 tab once daily [Active]; prednisone 10 mg Oral tab once daily [Active]; - PMHx: 18:06 Chronic pain; Diabetes - IDDM; Hypertension; Cirrhosis of liver; kg 21:01 hernia; Cirrhosis of liver; back surgery; df1 - Immunization history:: Adult Immunizations up to date, Client reports receiving the 2nd dose of the Covid vaccine, Pfizer Client reports receiving the 1st dose of the Covid vaccine, Pfizer. - Social history:: Smoking status: Patient/guardian denies using tobacco. - Family history:: not pertinent. ROS: 18:49 Constitutional: Negative for fever, chills, and weight loss, Eyes: Negative for injury, keila pain, redness, and discharge, ENT: Negative for injury, pain, and discharge, Neck: Negative for injury, pain, and swelling, Cardiovascular: Negative for chest pain, palpitations, and edema, Respiratory: Negative for shortness of breath, cough, wheezing, and pleuritic chest pain, Back: Negative for injury and pain, : Negative for injury, bleeding, discharge, and swelling, MS/Extremity: Negative for injury and deformity, Skin: Negative for injury, rash, and discoloration, Neuro: Negative for headache, weakness, numbness, tingling, and seizure, Psych: Negative for depression, anxiety, suicide ideation, homicidal ideation, and hallucinations, Allergy/Immunology: Negative for hives, rash, and allergies, Endocrine: Negative for neck swelling, polydipsia, polyuria, polyphagia, and marked weight changes, Hematologic/Lymphatic: Negative for swollen nodes, abnormal bleeding, and unusual bruising. 18:49 Abdomen/GI: Positive for abdominal pain, nausea and vomiting, abdominal cramps, of the right upper quadrant, left upper quadrant, right lower quadrant and left lower quadrant. Exam: 18:49 Constitutional: This is a well developed, well nourished patient who is awake, alert, keila and in no acute distress. Head/Face: Normocephalic, atraumatic. Eyes: Pupils equal round and reactive to light, extra-ocular motions intact. Lids and lashes normal. Conjunctiva and sclera are non-icteric and not injected. Cornea within normal limits. Periorbital areas with no swelling, redness, or edema. ENT: Nares patent. No nasal discharge, no septal abnormalities noted. Tympanic membranes are normal and external auditory canals are clear. Oropharynx with no redness, swelling, or masses, exudates, or evidence of obstruction, uvula midline. Mucous membranes moist. Neck: Trachea midline, no thyromegaly or masses palpated, and no cervical lymphadenopathy. Supple, full range of motion without nuchal rigidity, or vertebral point tenderness. No Meningismus. Chest/axilla: Normal chest wall appearance and motion. Nontender with no deformity. No lesions are appreciated. Cardiovascular: Regular rate and rhythm with a normal S1 and S2. No gallops, murmurs, or rubs. Normal PMI, no JVD. No pulse deficits. Respiratory: Lungs have equal breath sounds bilaterally, clear to auscultation and percussion. No rales, rhonchi or wheezes noted. No increased work of breathing, no retractions or nasal flaring. Back: No spinal tenderness. No costovertebral tenderness. Full range of motion. Male : Normal genitalia with no discharge or lesions. Skin: Warm, dry with normal turgor. Normal color with no rashes, no lesions, and no evidence of cellulitis. MS/ Extremity: Pulses equal, no cyanosis. Neurovascular intact. Full, normal range of motion. Neuro: Awake and alert, GCS 15, oriented to person, place, time, and situation. Cranial nerves II-XII grossly intact. Motor strength 5/5 in all extremities. Sensory grossly intact. Cerebellar exam normal. Normal gait. Psych: Awake, alert, with orientation to person, place and time. Behavior, mood, and affect are within normal limits. 18:49 Abdomen/GI: Inspection: abdomen appears normal, Bowel sounds: normal, Palpation: mild abdominal tenderness, in all quadrants, Liver: no appreciated palpable abnormalities, Hernia: not appreciated. 19:01 ECG was reviewed by the Attending Physician. [facility] Vital Signs: 17:50 BP 155 / 98; Pulse 94; Resp 20; Temp 97.4(TE); Pulse Ox 100% ; Weight 62.14 kg (R); kg Height 5 ft. 9 in. (175.26 cm) (R); Pain 8/10; 20:01 BP 186 / 72; Pulse 87; Resp 18; Pulse Ox 100% on R/A; df1 17:50 Body Mass Index 20.23 (62.14 kg, 175.26 cm) kg MDM: 17:49 Medical screening is not applicable. keila 18:52 Differential diagnosis: Nonspecific abd pain, gastritis, pancreatitis, diverticulitis, keila viral gastroenteritis, gastroenteritis. Data reviewed: vital signs, nurses notes, lab test result(s), EKG, radiologic studies, CT scan, plain films. Data interpreted: bus monitor: rate is 94 beats/min, rhythm is regular, Pulse oximetry: on room air is 94 %. Test interpretation: by ED physician or midlevel provider: ECG, plain radiologic studies. Counseling: I had a detailed discussion with the patient and/or guardian regarding: the historical points, exam findings, and any diagnostic results supporting the discharge/admit diagnosis, lab results, radiology results, the need for further work-up and treatment in the hospital. 11/28 17:51 Order name: Basic Metabolic Panel; Complete Time: 19:07 [facility] 11/28 17:51 Order name: CBC with Diff; Complete Time: 18:56 [facility] 11/28 17:51 Order name: LFT's; Complete Time: 19: [facility] 11/28 17:51 Order name: Magnesium; Complete Time: 19: [facility] 11/28 17:51 Order name: NT PRO-BNP; Complete Time: 19:07 [facility] 11/28 17:51 Order name: PT-INR; Complete Time: 18:56 [facility] 11/28 17:51 Order name: Troponin (emerg Dept Use Only); Complete Time: 19:07 [facility] 11/28 17:51 Order name: Lipase; Complete Time: 19:07 [facility] 11/28 17:51 Order name: Alcohol Level; Complete Time: 19:05 [facility] 11/28 17:51 Order name: Acetaminophen; Complete Time: 19:07 [facility] 11/28 17:51 Order name: Ptt, Activated; Complete Time: 18:56 [facility] 11/28 17:51 Order name: Salicylate; Complete Time: 19:26 [facility] 11/28 17:51 Order name: Urine Drug Screen; Complete Time: 19:26 [facility] 11/28 17:51 Order name: XRAY Chest (1 view); Complete Time: 18:43 [facility] 11/28 18:10 Order name: AMMONIA; Complete Time: 18:56 11/28 18:13 Order name: Glucose, Ancillary Testing; Complete Time: 18:16 [facility] 11/28 18:54 Order name: Urine Dipstick-Ancillary; Complete Time: 18:56 [facility] 11/28 19:10 Order name: Ketone, Serum; Complete Time: 19:58 [facility] 11/28 19:10 Order name: ABG; Complete Time: 20:27 [facility] 11/28 20:28 Order name: CT Abd/Pelvis - Without Contrast la1 11/28 21:12 Order name: SARS-COV-2 RT PCR; Complete Time: 21:59 [facility] 11/28 21:31 Order name: CT; Complete Time: 21:59 [facility] 11/28 17:51 Order name: EKG; Complete Time: 17:53 [facility] 11/28 17:51 Order name: Cardiac monitoring [facility] 11/28 17:51 Order name: EKG - Nurse/Tech [facility] 11/28 17:51 Order name: IV Saline Lock [facility] 11/28 17:51 Order name: Labs collected and sent [facility] 11/28 17:51 Order name: O2 Per Protocol [facility] 11/28 17:51 Order name: O2 Sat Monitoring [facility] 11/28 17:51 Order name: Suicide Screening ([place]) [facility] 11/28 17:51 Order name: Urine Dipstick-Ancillary (obtain specimen); Complete Time: 19:01 [facility] 11/28 20:33 Order name: Misc. Order: Repeat BMP after 2L bolus at 2300 la1 EC: Rate is 93 beats/min. Rhythm is irregular. QRS [place] is Normal. HI interval is normal. [facility] QRS interval is prolonged at 152 msec. QT interval is normal. No Q waves. T waves are Normal. No ST changes noted. Clinical impression: Abnormal EKG without significant change. Interpreted by me. Reviewed by me. Administered Medications: 18:35 Drug: Pepcid (famotidine) 20 mg Route: IVP; Site: right antecubital; kg 21:41 Follow up: Response: No adverse reaction df1 18:36 Drug: Thiamine 100 mg Route: IV; Rate: bolus; Site: right antecubital; kg 20:28 Follow up: Response: No adverse reaction df1 22:08 Follow up: IV Status: Completed infusion df1 18:37 Drug: foLIC Acid 1 mg Route: IVPB; Site: right antecubital; kg 20:30 Follow up: Response: No adverse reaction df1 22:08 Follow up: IV Status: Completed infusion df1 18:37 Drug: Banana Bag - (NS 0.9% 1000 ml, foLIC Acid 1 mg, Thiamine 100 mg, Multivitamin 1 kg amp) Route: IV; Rate: 150 ml/hr; Site: right antecubital; 18:53 Drug: morphine 4 mg {Note: Rass 1.} Route: IVP; Site: right antecubital; es2 20:29 Follow up: Response: No adverse reaction df1 18:53 Drug: Zofran (Ondansetron) 4 mg Route: IVP; Site: right antecubital; es2 20:29 Follow up: Response: No adverse reaction df1 19:20 Drug: NS 0.9% 1000 ml Route: IV; Rate: 1 bolus; Site: left wrist; df1 22:10 Follow up: IV Status: Completed infusion; IV Intake: 1000ml df1 20:26 Drug: NS 0.9% 1000 ml Route: IV; Rate: 1 bolus; Site: right antecubital; df1 20:26 Drug: Insulin Regular Human 10 units {Co-Signature: bc5 (Ashley Dumas RN).} Route: IVP; df1 Site: left hand; 20:29 Follow up: Response: No adverse reaction df1 20:27 Drug: Magnesium Sulfate 2 grams Route: IVPB; Infused Over: 2 hrs; Site: right df1 antecubital; 21:40 Follow up: Response: No adverse reaction; IV Intake: 50ml df1 22:07 Follow up: IV Status: Completed infusion; IV Intake: 50ml df1 20:27 Drug: LanTUS (insulin glargine) 30 units Route: Sub-Q; Site: abdomen; df1 21:40 Follow up: Response: No adverse reaction df1 20:28 Drug: Zofran (Ondansetron) 4 mg Route: IVP; Site: left hand; df1 20:29 Follow up: Response: No adverse reaction df1 Disposition Summary: 11/28/20 19:00 Hospitalization Ordered Hospitalization Status: Inpatient Admission keila Location: Telemetry/[facility] (Inpatient) keila Condition: Fair keila Problem: new keila Symptoms: have improved keila Bed/Room Type: Standard keila Provider: Felipe Roche(11/28/20 19:27) keila Room Assignment: [facility](11/28/20 21:26) Diagnosis - Vomiting keila - Alcoholic cirrhosis of liver without ascites keila - Abdominal pain, Generalized keila - Weakness keila - Hypomagnesemia keila - Acute kidney failure, unspecified - on chronic keila - Type 1 diabetes mellitus with hyperglycemia - Anion Gap 17 keila Forms: - Medication Reconciliation Form keila - SBAR form keila Signatures: Dispatcher [employer] EDMS eHnrietta Zarate RN RN mw Anderson, Corey, MD MD cha Attema, Lee, PEDIATRIC SPEECH THERAPIST-C PEDIATRIC SPEECH THERAPIST-Cla1 Mildred Diego RN RN kg Furlich, Dawn df1 Alannah Flores RN RN es2 Ashley Dumas RN bc5 Corrections: (The following items were deleted from the chart) 19:13 19:00 Type 2 diabetes mellitus with hyperglycemia [facility] 19: 19:00 Janet Ashby cha [facility] 20:17 17:53 CORONAVIRUS+MREmaLAB.BRZ ordered. EDMS EDMS 21: 19:00 keila
[2020-11-28 19:05] LABS: ALT/SGPT 22 U/L (12-78); AST/SGOT 39 U/L (15-37); Albumin 2.9 g/dL (3.4-5.0); Alkaline Phosphatase 311 U/L (45-117); BUN Blood Urea Nitrogen 26 mg/dL (7-18); Bicarbonate 19 mmol/L (21-32); Bilirubin Direct 0.6 mg/dL (0-0.2); Bilirubin Total 1.6 mg/dL (0.2-1.0); Glucose Level 370 mg/dL (74-106); Lipase 57 U/L (73-393); Magnesium 1.5 mg/dL (1.8-2.4); NT PRO-BNP 2575 pg/mL (<450); Potassium 3.7 mmol/L (3.5-5.1); Protein, Total 8.2 g/dL (6.4-8.2); Sodium Level 136 mmol/L (136-145); Troponin (Emerg Dept Use Only) < 0.02 ng/mL (0.0-0.045)
[2020-11-28] MEDS ORDERED: MORPHINE 4 MG/ML SYR ONE (19:09)
[2020-11-28] MEDS ORDERED: ONDANSETRON 4 MG/2 ML VIAL ONE ×2 (19:09→20:33)
[2020-11-28 19:17] LABS: Barbiturates NEGATIVE (NEGATIVE); Benzodiazepines NEGATIVE (NEGATIVE); Cocaine NEGATIVE (NEGATIVE); METHAMPHETAM NEGATIVE (NEGATIVE); Methadone NEGATIVE (NEGATIVE); Opiates NEGATIVE (NEGATIVE); Phencyclidine NEGATIVE (NEGATIVE); THC Cannibis NEGATIVE (NEGATIVE)
[2020-11-28 20:22] LABS: Arterial Blood Carboxyhemoglob 1.2 % (0-1.5); Blood Gas Oxyhemoglobin 96.3 % (94-97); Blood O2 Saturation 98.5 % (92-98.5)
[2020-11-28] MEDS ORDERED: INSULIN -REGULAR HUMAN 50 UNIT/0.5 ML ML ONE (20:34)
[2020-11-28] MEDS ORDERED: INSULIN GLARGINE 100 UNITS/ML SQ ONE (20:35)
[2020-11-28] MEDS ORDERED: NA CHLORIDE 0.9% 1,000 ML ONE (20:36)
[2020-11-28] MEDS ORDERED: Magnesium Sulfate 2gm IVPB 2 G/50 ML BAG IV ONE (20:36)
--- NOTE | 2020-11-28 20:50 | P.HP ---
Certification for Inpatient Patient admitted to: Observation With expected LOS: <2 Midnights Patient will require the following post-hospital care: None Practitioner: I am a practitioner with admitting privileges, knowledge of patient current condition, hospital course, and medical plan of care. Services: Services provided to patient in accordance with Admission requirements found in Title 42 Section 412.3 of the Code of Federal Regulations Patient History Date of Service: 11/28/20 History of Present Illness: 75-year-old male with history of diabetes most type II, hypertension, alcoholic cirrhosis of the liver, CAD status post CABG presents emergency department for nausea, vomiting. Patient reports increasing abdominal pain, nausea, vomiting over the course of last week or so. Patient was evaluated in the emergency department labs are significant for hemoglobin 12.8 hematocrit 37.7 platelets 107 ABG pH 7.54 PCO2 20.7 PO2 104 sodium 136 CO2 19 BUN 26 creat inine 1.52 GFR 45 glucose 370 magnesium 1.5T bili 1.6D bili 0.6 AST 39 alk phos 311 BNP 2575 urinalysis trace ketones Covid test pending. Patient still with nausea and vomiting after receiving antiemetics in the emergency department mild anion gap on chemistry, ED provider wishes to admit for further evaluation and management of nausea/vomiting/dehydration/acute kidney injury. Allergies vancomycin Allergy (Verified 05/27/18 10:36) Itching/Hives/Rash Home Medications: Ezetimibe [Zetia*] 10 mg PO DAILY 05/23/18 Magnesium Oxide [Mag 0X*] 400 mg PO BID 05/23/18 Pantoprazole Sodium [Protonix] 40 mg PO DAILY 05/23/18 Furosemide [Lasix*] 20 mg PO DAILY 06/26/18 Simvastatin 40 mg PO BEDTIME 06/26/18 Aspirin 81 mg PO DAILY 06/09/19 Carvedilol [Coreg] 12.5 mg PO BID 06/09/19 Glucerna Shake [Glucerna*] 237 ml PO TID #90 can 06/11/19 Ondansetron [Zofran (Odt)*] 4 mg PO Q6H PRN #20 tab 06/12/19 Amlodipine Besylate [Norvasc] 10 mg PO DAILY #30 tablet 08/30/19 Insulin Detemir [Levemir] 35 units SQ BID #1 bottle 08/30/19 Prednisone [Sterapred Ds] 10 mg PO DAILY #7 tab.ds.pk 08/30/19 guaiFENesin [Guaifenesin] 400 mg PO TID PRN #21 tablet 08/30/19 - Past Medical/Surgical History Diabetic: Yes -: CAD s/p Stent/ CABG -: Arthritis -: HTN -: DM -: Skin cancer -: Alcoholic cirrhosis of the liver -: CABG -: Laminectomy -: Back sx -: Skin cancer sx Psychosocial/ Personal History: Patient lives at home with his debilitated - Family History Father -: Heart disease Mother -: Heart disease Notes: MD - Social History Alcohol use: No CD- Drugs: No Caffeine use: Yes Place of Residence: Home Review of Systems 10-point ROS is otherwise unremarkable Gastrointestinal: Nausea, Vomiting, Abdominal Pain Physical Examination - Physical Exam General: Alert, In no apparent distress, Oriented x3 HEENT: Atraumatic Neck: Supple Respiratory: Clear to auscultation bilaterally Cardiovascular: Normal S1 S2 Capillary refill: <2 Seconds Gastrointestinal: Normal bowel sounds, No tenderness, No masses, No rebound, No guarding Musculoskeletal: No contractures, No erythema, No tenderness Integumentary: No significant lesion, No tenderness/swelling, No erythema Neurological: Normal speech, Normal strength at 5/5 x4 extr, Normal tone Lymphatics: No axilla or inguinal lymphadenopathy - Studies Laboratory Data (last 24 hrs) 11/28/20 18:19: PT 17.6 H, INR 1.52, APTT 30.8 11/28/20 18:19: WBC 5.60, Hgb 12.8 L, Hct 37.7 L, Plt Count 107 L 11/28/20 18:19: Sodium 136, Potassium 3.7, BUN 26 H, Creatinine 1.52 H, Glucose 370 H, Magnesium 1.5 L D, Total Bilirubin 1.6 H, AST 39 H, ALT 22, Alkaline Phosphatase 311 H, Lipase 57 L Assessment and Plan - Plan Assessment: Vomiting, dehydration, acute kidney injury Alcoholic cirrhosis of liver with thrombocytopenia: Diabetes mellitus type 2 CAD status post CABG/stents Plan: Vomiting, dehydration, acute kidney injury: Patient given 2 L normal saline bolus in the emergency department, will proceed IV fluids overnight, n.p.o. at this time, advance diet as tolerated. CT abdomen pelvis without contrast pending at this time. 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 Alcoholic cirrhosis of liver with thrombocytopenia: Appears stable at this time, hold heparin for platelet count less than 100. Diabetes mellitus type 2: A [facility] Accu-Chek, sliding scale insulin therapy CAD status post CABG/stents: Monitor on telemetry, continue home medications DVT PPX:Heparin Code status:Full Discharge Plan: Home Plan to discharge in: 24 Hours - Advance Directives Does patient have a Living Will: Yes Does patient have a Durable POA for Healthcare: Yes - Code Status/Comfort Care Code Status Assessed: Yes (FC) Critical Care: No Time Spent Managing Pts Care (In Minutes): 55
--- NOTE | 2020-11-28 21:29 | RAD REPORT ---
EXAM DESCRIPTION: CT - Abdomen Pelvis Wo Contrast - 11/28/2020 9:19 pm CLINICAL HISTORY: Abdominal pain. ABD PAIN COMPARISON: Abdomen Pelvis Wo Contrast dated 05/15/2020 TECHNIQUE: CT imaging of the abdomen and pelvis was performed without contrast. Solid organ, bowel a nd vascular assessment is limited due to lack of IV and oral contrast. All CT scans are performed using dose optimization technique as appropriate and may include automated exposure control or mA/KV adjustment according to patient size. FINDINGS: The lower lung adams are clear.Small pleural effusion. Moderate hiatal hernia is noted. Nodular contour to the liver parenchyma is seen compatible with liver cirrhosis. Gallstone is present in the gallbladder.The spleen is mildly prominent in size. Pancreatic atrophy is noted. Both adrenal glands and both kidneys are within normal limits. Mild ascites is present. No bowel obstruction or free air. Mild thickening of the colon wall is noted . Guerrero catheter is in the urinary bladder. Small right inguinal hernia is present containing fluid. Hardware is noted spanning L2-4. IMPRESSION: Liver cirrhosis pattern is seen with mild ascites. Cholelithiasis. Moderate hiatal hernia. Colonic wall thickening is seen which could be secondary to colitis or portal colopathy. A limited non-contrast examination was performed as detailed.
[2020-11-28] MEDS ORDERED: SODIUM CHLORIDE 0.9% 10ML INJ IV PRN (22:42)
[2020-11-28] MEDS ORDERED: INSULIN -REGULAR HUMAN 50 UNIT/0.5 ML ML SQ SCH (22:42)
[2020-11-28] MEDS: NA CHLORIDE 0.9% 1,000 ML IV SCH (23:16)
[2020-11-28] MEDS: HEPARIN 5000 UNIT/ML 1 ML VIAL SQ SCH (23:16)
[2020-11-29] MEDS: PROMETHAZINE INJ 25 MG/ML AMP IV PRN (00:10)
[2020-11-29] MEDS: INSULIN -REGULAR HUMAN 50 UNIT/0.5 ML ML SQ SCH ×5 (00:17→20:55)
[2020-11-29] MEDS: MELATONIN 5 MG TABLET PO PRN ×2 (00:18→20:55)
[2020-11-29] MEDS ORDERED: ONDANSETRON 4 MG/2 ML VIAL IV PRN (02:00)
[2020-11-29 05:56] LABS: Absolute Lymphocytes (CBC) 0.5 K/uL (0.7-4.9); Basophils % 0.2 % (0-1.3); Hematocrit 29.3 % (39.6-49.0); Lymphocytes % 9.3 % (15.3-44.8); MPV 9.1 fL (7.6-11.3); RBC Red Blood Cell Count 3.14 M/uL (4.33-5.43)
--- NOTE | 2020-11-29 05:59 | P.PN ---
Subjective Date of Service: 11/29/20 Primary Care Provider: Dr. Martin; Liver specialist in [place] Chief Complaint: Fatigue Subjective: Improving (Patient reports better hydration) Physical Examination - Vital Signs Temperature: 98.1 F Blood Pressure: 154/74 Pulse: 95 Respirations: 18 Pulse Ox (%): 96 - Studies Laboratory Data (last 24 hrs) 11/28/20 18:19: PT 17.6 H, INR 1.52, APTT 30.8 11/28/20 18:19: WBC 5.60, Hgb 12.8 L, Hct 37.7 L, Plt Count 107 L 11/28/20 18:19: Sodium 136, Potassium 3.7, BUN 26 H, Creatinine 1.52 H, Glucose 370 H, Magnesium 1.5 L D, Total Bilirubin 1.6 H, AST 39 H, ALT 22, Alkaline Ph osphatase 311 H, Lipase 57 L Assessment & Plan Discharge Plan: Home Plan to discharge in: 24 Hours Physician Review Additional Text: COVID: negative CXR: COMPARISON: Chest Single View dated 05/15/2020; Chest Pa And Lat (2 Views) dated 10/09/2019; Chest Single View dated 09/10/2019; Chest Single View dated 08/28/2019 FINDINGS: Portable technique limits examination quality. The lungs are grossly clear. The heart is normal in size. No displaced fractures.Sternotomy wires. IMPRESSION: No acute intrathoracic process suspected. CT scan: COMPARISON: Abdomen Pelvis Wo Contrast dated 05/15/2020 TECHNIQUE: CT imaging of the abdomen and pelvis was performed without contrast. Solid organ, bowel and vascular assessment is limited due to lack of IV and oral contrast. All CT scans are performed using dose optimization technique as appropriate and may include automated exposure control or mA/KV adjustment according to patient size. FINDINGS: The lower lung adams are clear.Small pleural effusion. Moderate hiatal hernia is noted. Nodular contour to the liver parenchyma is seen compatible with liver cirrhosis. Gallstone is present in the gallbladder.The spleen is mildly prominent in size. Pancreatic atrophy is noted. Both adrenal glands and both kidneys are within normal limits. Mild ascites is present. No bowel obstruction or free air. Mild thickening of the colon wall is noted. Guerrero catheter is in the urinary bladder. Small right inguinal hernia is present containing fluid. Hardware is noted spanning L2-4. IMPRESSION: Liver cirrhosis pattern is seen with mild ascites. Cholelithiasis. Moderate hiatal hernia. Colonic wall thickening is seen which could be secondary to colitis or portal colopathy. A limited non-contrast examination was performed as detailed. Physical exam: General: Alert, In no apparent distress, Oriented x3 HEENT: Atraumatic Neck: Supple Respiratory: Clear to auscultation bilaterally Cardiovascular: Normal S1 S2 Capillary refill: <2 Seconds Gastrointestinal: Normal bowel sounds, No tenderness, No masses, No rebound, No guarding Musculoskeletal: No contractures, No erythema, No tenderness Integumentary: No significant lesion, No tenderness/swelling, No erythema Neurological: Normal speech, Normal strength at 5/5 x4 extr, Normal tone Lymphatics: No axilla or inguinal lymphadenopathy Impression: Vomiting, dehydration, acute kidney injury Alcoholic cirrhosis of liver with thrombocytopenia: Diabetes mellitus type 2 CAD status post CABG/stents GERD with Hiatal hernia Plan: Vomiting, dehydration, acute kidney injury: Renal function improved. Continue with IV fluids. Will start with a clear liquid diet then advance as tolerated. Continue with Protonix, folic acid and thiamine. Dietary to evaluate and make recommendations on daily needs. CT scan unremarkable except for liver cirrhosis. Patient is seen by liver specialist up in [place]. Physical therapy to ambulate. DC Guerrero catheter. Anticipate continued improvement. Likely home in the next 24 hours. Will discuss with his PCP. Alcoholic cirrhosis of liver with thrombocytopenia: Overall stable. Will monitor closely. Patient is seen by liver specialist up in [place]. Diabetes mellitus type 2: Will check A1c. Continue Accu-Cheks. Sliding scale in place. CAD status post CABG/stents: Monitor on telemetry. Obtain and verify home medication so that it can be reconciled. GERD with Hiatal hernia: Continue with Protonix DVT PPX: Heparin Code status: Full code Discharge Plan: Home at discharge Time Spent Managing Pts Care (In Minutes): 55
[2020-11-29 06:18] LABS: Albumin 2.3 g/dL (3.4-5.0); Bilirubin Total 1.2 mg/dL (0.2-1.0); Potassium 3.3 mmol/L (3.5-5.1); Protein, Total 6.7 g/dL (6.4-8.2); Thyroid Stimulating Hormone 1.4 uIU/mL (0.360-3.740)
[2020-11-29 08:45] LABS: Blood Morphology Comment NOT SEEN (NOT SEEN); Platelet Estimate DECR; White Blood Cell Scan OK (OK)
[2020-11-29] MEDS: HEPARIN 5000 UNIT/ML 1 ML VIAL SQ SCH ×2 (09:00→20:55)
[2020-11-29] MEDS ORDERED: PANTOPRAZOLE 40 MG INJ IVP SCH (09:00)
[2020-11-29] MEDS ORDERED: POTASSIUM CL SA 10 MEQ TAB PO ONE (09:00)
[2020-11-29] MEDS: PANTOPRAZOLE 40 MG INJ IVP SCH (09:01)
[2020-11-29] MEDS: THIAMINE HCL 100 MG TABLET PO SCH (09:02)
[2020-11-29] MEDS: FOLIC ACID 1 MG TABLET PO SCH (09:02)
[2020-11-29] MEDS: ONDANSETRON 4 MG/2 ML VIAL IV PRN (10:44)
[2020-11-29] MEDS: NA CHLORIDE 0.9% 1,000 ML IV SCH ×2 (13:59→18:42)
--- NOTE | 2020-11-29 16:42 | EKG ---
Test Date: 2020-11-28 Test Time: 19:01:16 Pretzel Packer: PRAVEENA MEASUREMENT RESULTS: Intervals: Rate: 93 MO: 122 QRSD: 152 QT: 468 QTc: 581 [place]: P: 98 MO: 122 QRS: 268 T: 75 INTERPRETIVE STATEMENTS: Suspect arm lead reversal, interpretation assumes no reversal Sinus rhythm with sinus arrhythmia with frequent premature ventricular complexes Right bundle branch block Septal infarct, age undetermined Abnormal ECG Compared to ECG 05/15/2020 08:36:39 Ventricular premature complex(es) now present Myocardial infarct finding still present Electronically Signed On 11-29-20 16:39:05 CDT by Nba Dumont
[2020-11-29] MEDS: carvediloL 3.125 MG TAB PO SCH (17:24)
--- NOTE | 2020-11-29 20:35 | P.CNS ---
Date of Consult: 11/29/20 Reason for Consult: RACHEL Requesting Physician: Felipe Roche Primary Care Provider: Dr. Martin; Liver specialist in [place] Chief Complaint: Fatigue History of Present Illness: 75-year-old male with history of diabetes most type II, hypertension, alcoholic cirrhosis of the liver, CAD status post CABG presents emergency department for nausea, vomiting. Patient reports increasing abdominal pain, n ausea, vomiting over the course of last week or so. Patient was evaluated in the emergency department labs are significant for hemoglobin 12.8 hematocrit 37.7 platelets 107 ABG pH 7.54 PCO2 20.7 PO2 104 sodium 136 CO2 19 BUN 26 creatinine 1.52 GFR 45 glucose 370 magnesium 1.5T bili 1.6D bili 0.6 AST 39 alk phos 311 BNP 2575 urinalysis trace ketones Covid test pending. Patient still with nausea and vomiting after receiving antiemetics in the emergency department mild anion gap on chemistry, ED provider wishes to admit for further evaluation and management of nausea/vomiting/dehydration/acute kidney injury. 18:49 This 75 yrs old Male presents to ER via EMS with complaints of vomiting and keila weakness, cant hold anything down. 18:49 The patient presents to the emergency department with nausea, vomiting, that is keila continuous, described as bilious. Onset: The symptoms/episode began/occ urred 3 day(s) ago. Possible causes: unknown. The symptoms are aggravated by food , The symptoms are alleviated by nothing. remaining still. Associated signs and symptoms: Pe rtinent positives: abdominal pain, anorexia, nausea, vomiting. Severity of symptoms: At their worst the symptoms were moderate in the emergency department the symptoms are unchanged. The patient has experienced similar episodes in the past, multiple times. Allergies vancomycin Allergy (Verified 05/27/18 10:36) Itching/Hives/Rash Home medications list reviewed: Yes Home Medications: Ezetimibe [Zetia*] 10 mg PO DAILY 05/23/18 Magnesium Oxide [Mag 0X*] 400 mg PO BID 05/23/18 Pantoprazole Sodium [Protonix] 40 mg PO DAILY 05/23/18 Furosemide [Lasix*] 20 mg PO DAILY 06/26/18 Simvastatin 40 mg PO BEDTIME 06/26/18 Aspirin 81 mg PO DAILY 06/09/19 Carvedilol [Coreg] 12.5 mg PO BID 06/09/19 Glucerna Shake [Glucerna*] 237 ml PO TID #90 can 06/11/19 Ondansetron [Zofran (Odt)*] 4 mg PO Q6H PRN #20 tab 06/12/19 Amlodipine Besylate [Norvasc] 10 mg PO DAILY #30 tablet 08/30/19 Insulin Detemir [Levemir] 35 units SQ BID #1 bottle 08/30/19 Prednisone [Sterapred Ds] 10 mg PO DAILY #7 tab.ds.pk 08/30/19 guaiFENesin [Guaifenesin] 400 mg PO TID PRN #21 tablet 08/30/19 - Past Medical/Surgical History Diabetic: Yes -: CAD s/p Stent/ CABG -: Arthritis -: HTN -: DM -: Skin cancer -: Alcoholic cirrhosis of the liver -: CABG -: Laminectomy -: Back sx -: Skin cancer sx Psychosocial/ Personal History: Patient lives at home with his debilitated - Family History Father Medical History: Heart disease Mother Medical History: Heart disease Notes: [place] - Social History Smoking Status: Former smoker Alcohol use: No CD- Drugs: No Caffeine use: Yes Place of Residence: Home Physical Examination Temp Pulse Resp BP Pulse Ox 98 F 91 H 18 161/72 H 100 11/29/20 16:00 11/29/20 17:24 11/29/20 16:00 11/29/20 17:24 11/29/20 16:00 General: In no apparent distress, Cooperative HEENT: Atraumatic Neck: Supple Respiratory: Clear to auscultation bilaterally Cardiovascular: No edema, Regular rate/rhythm Gastrointestinal: Non-distended Musculoskeletal: No clubbing, No contractures Integumentary: No rashes, No cyanosis Neurological: Normal speech Blood work reviewed in the chart. Imagings Data: EXAM DESCRIPTION: RAD - Chest Single View - 11/28/2020 6:21 pm CLINICAL HISTORY: COUGH Chest pain. COMPARISON: Chest Single View dated 05/15/2020; Chest Pa And Lat (2 Views) dated 10/09/2019; Chest Single View dated 09/10/2019; Chest Single View dated 08/28/2019 FINDINGS: Portable technique limits examination quality. The lungs are grossly clear. The heart is normal in size. No displaced fractures.Sternotomy wires. IMPRESSION: No acute intrathoracic process suspected. EXAM DESCRIPTION: CT - Abdomen Pelvis Wo Contrast - 11/28/2020 9:19 pm CLINICAL HISTORY: Abdominal pain. ABD PAIN COMPARISON: Abdomen Pelvis Wo Contrast dated 05/15/2020 TECHNIQUE: CT imaging of the abdomen and pelvis was performed without contrast. Solid organ, bowel and vascular assessment is limited due to lack of IV and oral contrast. All CT scans are performed using dose optimization technique as appropriate and may include automated exposure control or mA/KV adjustment according to patient size. FINDINGS: The lower lung adams are clear.Small pleural effusion. Moderate hiatal hernia is noted. Nodular contour to the liver parenchyma is seen compatible with liver cirrhosis. Gallstone is present in the gallbladder.The spleen is mildly prominent in size. Pancreatic atrophy is noted. Both adrenal glands and both kidneys are within normal limits. Mild ascites is present. No bowel obstruction or free air. Mild thickening of the colon wall is noted. Guerrero catheter is in the urinary bladder. Small right inguinal hernia is present containing fluid. Hardware is noted spanning L2-4. IMPRESSION: Liver cirrhosis pattern is seen with mild ascites. Cholelithiasis. Moderate hiatal hernia. Colonic wall thickening is seen which could be secondary to colitis or portal colopathy. A limited non-contrast examination was performed as detailed. Conclusions/Impression: RACHEL likely due to hypovolemia CKD III -No NSAIDs -Continue IVF with NS Hypokalemia -Replete with oral potassium Acidosis -Continue IVF Hypomagnesemia -Replete prn DM II with hyperglycemia -RISS Moderate malnutrition -Advance diet as tolerated Anemia in chronic illness -Monitor H&H Thank you kindly for the consultation.
[2020-11-30 00:05] VITALS: BMI 23.3
[2020-11-30] MEDS: NA CHLORIDE 0.9% 1,000 ML IV SCH ×2 (00:40→04:42)
[2020-11-30] MEDS: ONDANSETRON 4 MG/2 ML VIAL IV PRN ×4 (02:57→21:30)
[2020-11-30] MEDS: PROMETHAZINE INJ 25 MG/ML AMP IV PRN (03:54)
[2020-11-30] MEDS ORDERED: MORPHINE 2 MG/ML SYR IV PRN (04:11)
[2020-11-30] MEDS ORDERED: MORPHINE 2 MG/ML SYR ONE (04:39)
--- NOTE | 2020-11-30 05:57 | P.PN ---
Subjective Date of Service: 11/30/20 Primary Care Provider: Dr. Martin; Liver specialist in [place] Chief Complaint: Fatigue Subjective: Improving (Patient doing better today.) Physical Examination - Vital Signs Temperature: 97.6 F Blood Pressure: 141/63 Pulse: 82 Respirations: 18 Pulse Ox (%): 98 Assessment & Plan Discharge Plan: Home Plan to discharge in: 24 Hours Physician Review Additional Text: COVID: negative CXR: COMPARISON: Chest Single View dated 05/15/2020; Chest Pa And Lat (2 Views) dated 10/09/2019; Chest Single View dated 09/10/2019; Chest Single View dated 08/28/2019 FINDINGS: Portable technique limits examination quality. The lungs are grossly clear. The heart is normal in size. No displaced fractures.Sternotomy wires. IMPRESSION: No acute intrathoracic process suspected. CT scan: COMPARISON: Abdomen Pelvis Wo Contrast dated 05/15/2020 TECHNIQUE: CT imaging of the abdomen and pelvis was performed without contrast. Solid organ, bowel and vascular assessment is limited due to lack of IV and oral contrast. All CT scans are performed using dose optimization technique as appropriate and may include automated exposure control or mA/KV adjustment according to patient size. FINDINGS: The lower lung adams are clear.Small pleural effusion. Moderate hiatal hernia is noted. Nodular contour to the liver parenchyma is seen compatible with liver cirrhosis. Gallstone is present in the gallbladder.The spleen is mildly prominent in size. Pancreatic atrophy is noted. Both adrenal glands and both kidneys are within normal limits. Mild ascites is present. No bowel obstruction or free air. Mild thickening of the colon wall is noted. Guerrero catheter is in the urinary bladder. Small right inguinal hernia is present containing fluid. Hardware is noted spanning L2-4. IMPRESSION: Liver cirrhosis pattern is seen with mild ascites. Cholelithiasis. Moderate hiatal hernia. Colonic wall thickening is seen which could be secondary to colitis or portal colopathy. A limited non-contrast examination was performed as detailed. Physical exam: General: Alert, In no apparent distress, Oriented x3 HEENT: Atraumatic Neck: Supple Respiratory: Clear to auscultation bilaterally Cardiovascular: Normal S1 S2 Capillary refill: <2 Seconds Gastrointestinal: Normal bowel sounds, No tenderness, No masses, No rebound, No guarding Musculoskeletal: No contractures, No erythema, No tenderness Integumentary: No significant lesion, No tenderness/swelling, No erythema Neurological: Normal speech, Normal strength at 5/5 x4 extr, Normal tone Lymphatics: No axilla or inguinal lymphadenopathy Impression: Vomiting, dehydration, acute kidney injury Alcoholic cirrhosis of liver with thrombocytopenia: Diabetes mellitus type 2 CAD status post CABG/stents GERD with Hiatal hernia Hypertension Hyperlipidemia Chronic thrombocytopenia likely related to liver cirrhosis Plan: Vomiting, dehydration, acute kidney injury: Renal function improved. Now back to baseline. Discontinue IV fluids. Will advance diet to soft. Continue Protonix, folic acid and thiamine. Will provide Glucerna supplementation. Physical therapy to evaluate. Consider discharge later today if tolerating diet and doing well. Patient will need close follow-up with his liver specialist in [place]. Alcoholic cirrhosis of liver with thrombocytopenia: Overall stable. Hold Lasix at this time. Consider restarting within the next day. Will monitor closely. Patient is seen by liver specialist up in [place]. Diabetes mellitus type 2: Will check A1c. Continue Accu-Cheks. Sliding scale in place. Home medication reviewed. Patient taking Levemir at home. No need for basal insulin at this time. Will monitor closely. Home medication indicates taking prednisone. Will need to verify why patient is taking prednisone. CAD status post CABG/stents: Monitor on telemetry. Overall stable. Hypertension: Restart carvedilol 12.5 mg 1 pill twice daily and Norvasc 10 mg daily[address] Parameters in place. Hyperlipidemia: Restart Zetia 10 mg daily and Zocor 40 mg daily. GERD with Hiatal hernia: Continue with Protonix 40 mg daily Chronic thrombocytopenia likely related to liver cirrhosis: Hold aspirin at this time. DVT PPX: Heparin Code status: Full code Discharge Plan: Home at discharge Time Spent Managing Pts Care (In Minutes): 55
[2020-11-30 06:26] LABS: Absolute Lymphocytes (CBC) 0.4 K/uL (0.7-4.9); Basophils % 0.9 % (0-1.3); Hematocrit 32.2 % (39.6-49.0); Lymphocytes % 7.5 % (15.3-44.8); RBC Red Blood Cell Count 3.45 M/uL (4.33-5.43)
[2020-11-30] MEDS: INSULIN -REGULAR HUMAN 50 UNIT/0.5 ML ML SQ SCH ×4 (07:30→21:00)
[2020-11-30 07:50] LABS: Albumin 2.4 g/dL (3.4-5.0); Bilirubin Total 1.3 mg/dL (0.2-1.0); Magnesium 1.8 mg/dL (1.8-2.4); Phosphorus 2.1 mg/dL (2.5-4.9); Uric Acid 6.4 mg/dL (3.5-7.2)
[2020-11-30] MEDS: HEPARIN 5000 UNIT/ML 1 ML VIAL SQ SCH ×2 (09:00→21:02)
[2020-11-30] MEDS: PANTOPRAZOLE 40 MG INJ IVP SCH (09:33)
[2020-11-30] MEDS: carvediloL 3.125 MG TAB PO SCH (09:33)
[2020-11-30] MEDS: THIAMINE HCL 100 MG TABLET PO SCH (09:34)
[2020-11-30] MEDS: FOLIC ACID 1 MG TABLET PO SCH (09:34)
[2020-11-30] MEDS ORDERED: LACTULOSE 20 GM/30 ML UCUP PO PRN (10:57)
[2020-11-30] MEDS: GLUCERNA SHAKE 237 ML CAN PO SCH ×2 (13:58→21:00)
[2020-11-30] MEDS ORDERED: MAGNESIUM SULFATE 1 gm IVPB 1 GM/100 ML BAG IV ONE (14:00)
[2020-11-30 14:39] LABS: Urine Appearance CLEAR (Clear); Urine Bilirubin NEGATIVE (Negative); Urine Blood TRACE (Negative); Urine Color YELLOW (Yellow); Urine Glucose 1+ (Negative); Urine Protein NEGATIVE (Negative); Urine Specific Gravity 1.015 (1.005-1.030)
[2020-11-30 14:54] LABS: Urine Microscopic Reflex ORDER UMIC
[2020-11-30 15:10] LABS: Urine Bacteria <20 /HPF (NONE SEEN); Urine RBC <5 /HPF (NONE SEEN); Urine Yeast PRESENT (NONE SEEN)
[2020-11-30] MEDS: carvediloL 12.5 MG TAB PO SCH (16:43)
[2020-11-30] MEDS ORDERED: carvediloL 6.25 MG TAB PO SCH (17:00)
[2020-11-30] MEDS ORDERED: HOME MED 1 EA UNK (Simvastatin [Simvastatin] 40 MG Tablet) PO SCH (21:00)
[2020-11-30] MEDS: MAGNESIUM OXIDE 400 MG TAB PO SCH (21:00)
[2020-11-30] MEDS ORDERED: ATORVASTATIN 20 MG TAB PO SCH (21:00)
[2020-11-30] MEDS: MELATONIN 5 MG TABLET PO PRN (21:01)
[2020-11-30] MEDS ORDERED: POTASS/SODIUM PHOSPHATE 1 PKT POWD.PACK PO ONE (21:19)
--- NOTE | 2020-11-30 21:28 | P.PN ---
Date of Service: 11/30/20 Vital Signs Temp Pulse Resp BP Pulse Ox 98.1 F 76 20 192/87 H 98 11/30/20 16:00 11/30/20 16:43 11/30/20 16:00 11/30/20 16:43 11/30/20 16:00 Medications Amlodipine Besylate (Amlodipine 10 Mg Tab) 10 mg PO DAILY [facility] Atorvastatin Calcium (Atorvastatin 20 Mg Tab) 20 mg PO BEDTIME [facility] Last Admin: 11/30/20 21:01 Dose: 20 mg Documented by: Carvedilol (Carvedilol 12.5 Mg Tab) 12.5 mg PO BIDWM [facility] Last Admin: 11/30/20 16:43 Dose: 12.5 mg Documented by: Docusate Sodium (Docusate Na 100 Mg Cap) 100 mg PO DAILY [facility] Ezetimibe (Ezetimibe 10 Mg Tab) 10 mg PO DAILY [facility] Enteral Nutritional Formula (Glucerna Shake 237 Ml Can) 237 ml PO TID [facility] Last Admin: 11/30/20 13:58 Dose: 237 ml Documented by: Folic Acid (Folic Acid 1 Mg Tablet) 1 mg PO DAILY [facility] Last Admin: 11/30/20 09:34 Dose: 1 mg Documented by: Heparin Sodium (Porcine) (Heparin 5000 Unit/Ml 1 Ml Vial) 5,000 unit SQ Q12HR [facility] Last Admin: 11/30/20 21:02 Dose: 5,000 unit Documented by: Insulin Human Regular (Insulin -Regular Human 50 Unit/0.5 Ml Ml) 0 unit SQ [facility]; Protocol Last Admin: 11/30/20 16:30 Dose: 3 unit Documented by: Lactulose (Lactulose 20 Gm/30 Ml Ucup) 10 gm PO BID PRN PRN Reason: CONSTIPATION Magnesium Oxide (Magnesium Oxide 400 Mg Tab) 400 mg PO BID [facility] Last Admin: 11/30/20 21:00 Dose: 400 mg Documented by: Melatonin (Melatonin 5 Mg Tablet) 10 mg PO BEDTIME PRN PRN PRN Reason: INSOMNIA Last Admin: 11/30/20 21:01 Dose: 10 mg Documented by: Morphine Sulfate (Morphine 2 Mg/Ml Syr) 2 mg IV Q6H PRN PRN Reason: Pain scale 5-7 (Moderate) Last Admin: 11/30/20 04:20 Dose: 2 mg Documented by: Ondansetron HCl (Ondansetron 4 Mg/2 Ml Vial) 4 mg IV Q4H PRN PRN Reason: NAUSEA / VOMITING Last Admin: 11/30/20 14:03 Dose: 4 mg Documented by: Pantoprazole Sodium (Pantoprazole 40 Mg Inj) 40 mg IVP DAILY [facility]; Protocol Last Admin: 11/30/20 09:33 Dose: 40 mg Documented by: Potassium Phos/Sodium Phos (Potass/Sodium Phosphate 1 Pkt Powd.Pack) 2 pkt PO ONCE ONE Stop: 11/30/20 21:20 Promethazine HCl (Promethazine Inj 25 Mg/Ml Amp) 12.5 mg IV Q6H PRN PRN Reason: NAUSEA / VOMITING Last Admin: 11/30/20 03:54 Dose: 12.5 mg Documented by: Sodium Chloride (Flush Normal Saline 10 Ml) 10 ml IV BID [facility] Last Admin: 11/30/20 21:02 Dose: 10 ml Documented by: Sodium Chloride (Sodium Chloride 0.9% 10ml Inj) 10 ml IV UD PRN PRN Reason: Diluant Thiamine HCl (Thiamine Hcl 100 Mg Tablet) 100 mg PO DAILY [facility] Last Admin: 11/30/20 09:34 Dose: 100 mg Documented by: Assessment/ Plan: Nephrology Progress Note Reports persistent N/V causing insomnia. Good urine output. No chest pain or dyspnea No acute events overnight Vitals, medications blood work and imaging reviewed in the chart General: In no apparent distress, Cooperative HEENT: Atraumatic Neck: Supple Respiratory: Clear to auscultation bilaterally Cardiovascular: No edema, Regular rate/rhythm Gastrointestinal: Non-distended Musculoskeletal: No clubbing, No contractures Integumentary: No rashes, No cyanosis Neurological: Normal speech Blood work reviewed in the chart. Imagings Data: EXAM DESCRIPTION: RAD - Chest Single View - 11/28/2020 6:21 pm CLINICAL HISTORY: COUGH Chest pain. COMPARISON: Chest Single View dated 05/15/2020; Chest Pa And Lat (2 Views) dated 10/09/2019; Chest Single View dated 09/10/2019; Chest Single View dated 08/28/2019 FINDINGS: Portable technique limits examination quality. The lungs are grossly clear. The heart is normal in size. No displaced fractures.Sternotomy wires. IMPRESSION: No acute intrathoracic process suspected. EXAM DESCRIPTION: CT - Abdomen Pelvis Wo Contrast - 11/28/2020 9:19 pm CLINICAL HISTORY: Abdominal pain. ABD PAIN COMPARISON: Abdomen Pelvis Wo Contrast dated 05/15/2020 TECHNIQUE: CT imaging of the abdomen and pelvis was performed without contrast. Solid organ, bowel and vascular assessment is limited due to lack of IV and oral contrast. All CT scans are performed using dose optimization technique as appropriate and may include automated exposure control or mA/KV adjustment according to patient size. FINDINGS: The lower lung adams are clear.Small pleural effusion. Moderate hiatal hernia is noted. Nodular contour to the liver parenchyma is seen compatible with liver cirrhosis. Gallstone is present in the gallbladder.The spleen is mildly prominent in size. Pancreatic atrophy is noted. Both adrenal glands and both kidneys are within normal limits. Mild ascites is present. No bowel obstruction or free air. Mild thickening of the colon wall is noted. Guerrero catheter is in the urinary bladder. Small right inguinal hernia is present containing fluid. Hardware is noted spanning L2-4. IMPRESSION: Liver cirrhosis pattern is seen with mild ascites. Cholelithiasis. Moderate hiatal hernia. Colonic wall thickening is seen which could be secondary to colitis or portal colopathy. A limited non-contrast examination was performed as detailed. Conclusions/Impression: RACHEL likely due to hypovolemia CKD III -No NSAIDs Hypokalemia -Replete with oral potassium prn Acidosis Hypomagnesemia -Continue MagOx HypoPO4 -Give Neutr-phos X1 DM II with hyperglycemia -RISS Moderate malnutrition -Advance diet as tolerated Anemia in chronic illness -Monitor H&H
[2020-12-01 04:58] VITALS: BP 136/65; TEMP 97.8
--- NOTE | 2020-12-01 05:57 | P.PN ---
Subjective Date of Service: 12/01/20 Primary Care Provider: Dr. Martin; Liver specialist in [place] Chief Complaint: Fatigue Subjective: Improving (Significant nausea and vomiting. Patient tolerating diet.) Physical Examination - Vital Signs Temperature: 97.8 F Blood Pressure: 136/65 Pulse: 60 Respirations: 18 Pulse Ox (%): 97 Assessment & Plan Discharge Plan: Home Plan to discharge in: 24 Hours Physician Review Additional Text: COVID: negative CXR: COMPARISON: Chest Single View dated 05/15/2020; Chest Pa And Lat (2 Views) dated 10/09/2019; Chest Single View dated 09/10/2019; Chest Single View dated 08/28/2019 FINDINGS: Portable technique limits examination quality. The lungs are grossly clear. The heart is normal in size. No displaced fractures.Sternotomy wires. IMPRESSION: No acute intrathoracic process suspected. CT scan: COMPARISON: Abdomen Pelvis Wo Contrast dated 05/15/2020 TECHNIQUE: CT imaging of the abdomen and pelvis was performed without contrast. Solid organ, bowel and vascular assessment is limited due to lack of IV and oral contrast. All CT scans are performed using dose optimization technique as appropriate and may include automated exposure control or mA/KV adjustment according to patient size. FINDINGS: The lower lung adams are clear.Small pleural effusion. Moderate hiatal hernia is noted. Nodular contour to the liver parenchyma is seen compatible with liver cirrhosis. Gallstone is present in the gallbladder.The spleen is mildly prominent in size. Pancreatic atrophy is noted. Both adrenal glands and both kidneys are within normal limits. Mild ascites is present. No bowel obstruction or free air. Mild thickening of the colon wall is noted. Guerrero catheter is in the urinary bladder. Small right inguinal hernia is present containing fluid. Hardware is noted spanning L2-4. IMPRESSION: Liver cirrhosis pattern is seen with mild ascites. Cholelithiasis. Moderate hiatal hernia. Colonic wall thickening is seen which could be secondary to colitis or portal colopathy. A limited non-contrast examination was performed as detailed. Physical exam: General: Alert, In no apparent distress, Oriented x3 HEENT: Atraumatic Neck: Supple Respiratory: Clear to auscultation bilaterally Cardiovascular: Normal S1 S2 Capillary refill: <2 Seconds Gastrointestinal: Normal bowel sounds, No tenderness, No masses, No rebound, No guarding Musculoskeletal: No contractures, No erythema, No tenderness Integumentary: No significant lesion, No tenderness/swelling, No erythema Neurological: Normal speech, Normal strength at 5/5 x4 extr, Normal tone Lymphatics: No axilla or inguinal lymphadenopathy Impression: Vomiting, dehydration, acute kidney injury Alcoholic cirrhosis of liver with thrombocytopenia: Diabetes mellitus type 2 CAD status post CABG/stents GERD with Hiatal hernia with history of esophageal stricture and recent dilatation Hypertension Hyperlipidemia Chronic thrombocytopenia likely related to liver cirrhosis Plan: Vomiting, dehydration, acute kidney injury: Renal function improved and back to baseline. Patient tolerating his diet. Overall stable. We will plan for discharge today. Patient with history of GERD with hiatal hernia. Patient also reports history of esophageal stricture with recent dilatation with GI. Patient will be sent home with Protonix, Carafate, folic acid and thiamine. Recommend to continue with a soft diet. Patient will need follow-up with GI and PCP at discharge. Patient will need follow-up with liver specialist as well. Alcoholic cirrhosis of liver with thrombocytopenia: Patient overall stable. Continue with Lasix at home. May hold Lasix if with increased dehydration. Diabetes mellitus type 2: Hemoglobin A1c 8.2. Continue Accu-Cheks. Patient takes Levemir 35 units twice daily. Patient has not required Levemir during the hospital stay. Will recommend to continue Levemir but at 5 mg at bedtime. May need to hold if blood sugar less than 100. CAD status post CABG/stents: Monitor on telemetry. Overall stable. Hypertension: Continue carvedilol 12.5 mg 1 pill twice daily and Norvasc 10 mg daily[address] in place. Hyperlipidemia: Continue Zetia 10 mg daily and Zocor 40 mg daily. GERD with Hiatal hernia with history of esophageal stricture and recent dilatati on: Continue with above recommend continue with above recommendations of Protonix and Carafate Chronic thrombocytopenia likely related to liver cirrhosis: Overall stable DVT PPX: Heparin Code status: Full code Discharge Plan: Home at discharge Time Spent Managing Pts Care (In Minutes): 55
[2020-12-01 06:38] LABS: Absolute Lymphocytes (CBC) 0.8 K/uL (0.7-4.9); Basophils % 1.3 % (0-1.3); Hematocrit 31.8 % (39.6-49.0); Lymphocytes % 27.3 % (15.3-44.8); MPV 8.8 fL (7.6-11.3); RBC Red Blood Cell Count 3.37 M/uL (4.33-5.43)
[2020-12-01 07:07] LABS: Albumin 2.2 g/dL (3.4-5.0); Bilirubin Total 1.1 mg/dL (0.2-1.0); Phosphorus 3.2 mg/dL (2.5-4.9); Potassium 4.1 mmol/L (3.5-5.1); Protein, Total 6.4 g/dL (6.4-8.2)
[2020-12-01] MEDS: INSULIN -REGULAR HUMAN 50 UNIT/0.5 ML ML SQ SCH (07:30)
--- NOTE | 2020-12-01 08:04 | P.DS ---
Admission Date: 11/28/20 Discharge Date: 12/01/20 Primary Care Provider: Dr. Martin; Liver specialist in [place] Disposition: ROUTINE DISCHARGE Discharge Condition: GOOD Reason for Admission: Fatigue Consultations: Nephrology-Dr. Frazier Procedures: COVID: negative CXR: COMPARISON: Chest Single View dated 05/15/2020; Chest Pa And Lat (2 Views) dated 10/09/2019; Chest Single View dated 09/10/2019; Chest Single View dated 08/28/2019 FINDINGS: Portable technique limits examination quality. The lungs are grossly clear. The heart is normal in size. No displaced fractures.Sternotomy wires. IMPRESSION: No acute intrathoracic process suspected. CT scan: COMPARISON: Abdomen Pelvis Wo Contrast dated 05/15/2020 TECHNIQUE: CT imaging of the abdomen and pelvis was performed without contrast. Solid organ, bowel and vascular assessment is limited due to lack of IV and oral contrast. All CT scans are performed using dose optimization technique as appropriate and may include automated exposure control or mA/KV adjustment according to patient size. FINDINGS: The lower lung adams are clear.Small pleural effusion. Moderate hiatal hernia is noted. Nodular contour to the liver parenchyma is seen compatible with liver cirrhosis. Gallstone is present in the gallbladder.The spleen is mildly prominent in size. Pancreatic atrophy is noted. Both adrenal glands and both kidneys are within normal limits. Mild ascites is present. No bowel obstruction or free air. Mild thickening of the colon wall is noted. Guerrero catheter is in the urinary bladder. Small right inguinal hernia is present containing fluid. Hardware is noted spanning L2-4. IMPRESSION: Liver cirrhosis pattern is seen with mild ascites. Cholelithiasis. Moderate hiatal hernia. Colonic wall thickening is seen which could be secondary to colitis or portal colopathy. A limited non-contrast examination was performed as detailed. Medical Problem List: Vomiting, dehydration, acute kidney injury Alcoholic cirrhosis of liver with thrombocytopenia: Diabetes mellitus type 2 CAD status post CABG/stents GERD with Hiatal hernia with history of esophageal stricture and recent dilatation Hypertension Hyperlipidemia Chronic thrombocytopenia likely related to liver cirrhosis Brief History of Present Illness: 75-year-old male with history of diabetes most type II, hypertension, alcoholic cirrhosis of the liver, CAD status post CABG presents emergency department for nausea, vomiting. Patient reports increasing abdominal pain, nausea, vomiting over the course of last week or so. Patient was evaluated in the emergency department labs are significant for hemoglobin 12.8 hematocrit 37.7 platelets 107 ABG pH 7.54 PCO2 20.7 PO2 104 sodium 136 CO2 19 BUN 26 creatinine 1.52 GFR 45 glucose 370 magnesium 1.5T bili 1.6D bili 0.6 AST 39 alk phos 311 BNP 2575 urinalysis trace ketones Covid test pending. Patient still with nausea and vomiting after receiving antiemetics in the emergency department. Patient admitted for further evaluation and treatment. Hospital Course: Patient presented with nausea, vomiting and dehydration. Acute renal injury was noted. Patient with history of GERD with hiatal hernia and history of esophageal stricture with recent dilatation. Other medical problems include alcoholic cirrhosis of the liver with chronic thrombocytopenia, diabetes mellitus type 2, CAD with prior stents and CABG, hypertension and hyperlipidemia. The patient was admitted. Patient received IV fluids. His condition improved. His diet was slowly advanced. Due to his GERD and hiatal hernia and recent dilatation patient was placed on Protonix. Carafate was added. At discharge patient doing well at this time. No significant nausea and vomiting. Patient tolerating his diet. At discharge the patient will continue with Protonix 40 mg daily and Carafate 1 g with every meal. Patient will continue with a soft diet. Patient may supplement with Glucerna 1 can 3 times a day. She will also continue with folic acid 1 mg daily and thiamine 100 mg daily. Recommend follow-up with GI in 2 to 4 weeks to follow-up his hospitalization. Recommend follow-up with his PCP in 1 week to follow-up hospitalization. Recommend to recheck labBMP in 1 week to follow-up his hospitalization. Patient may follow-up with nephrology who saw the patient during the course of his stay as an outpatient to continue to monitor. Patient with liver cirrhosis with chronic lymphocytopenia. Overall stable. Patient is seen by Dr. Dao in [place]. Recommend follow-up with liver specialist in 1 to 2 weeks to follow-up his hospitalization. He will continue his care. Patient has been taking Lasix 20 mg daily for increase edema. At discharge will recommend to continue Lasix if with increase edema and to use Lasix as needed. Patient may be able to control his edema with a 1500 cc/day fluid restriction. Patient with hypertension. At discharge patient will continue with his current medications of carvedilol 12.5 mg 1 pill twice daily and Norvasc 10 mg daily. Recommend to maintain blood pressure less than 130/80. Further adjustment can be done by his PCP. May need to hold medication if blood pressure systolic less than 110. Patient with CAD and prior stents. At discharge patient will continue with aspirin 81 mg daily and magnesium as directed. Recommend follow-up with aminata garciay as directed. Patient with hyperlipidemia. At discharge patient will continue with his medication of Zetia 10 mg daily and Zocor 40 mg daily. Patient with diabetes mellitus type 2. Hemoglobin A1c 8.2. Patient takes Levemir 35 units subcu twice daily at home. Patient did not require Levemir during the course of his stay. Blood sugar was well controlled with sliding scale. At discharge will recommend to decrease Levemir at 5 units subcu at bedtime. Recommend to monitor blood sugars at least twice daily. Recommend to maintain blood sugar less than 140 fasting and less than 200 after meals. If blood sugar remains above 200 patient will need to increase his Levemir appropriately for better control. Recommend to recheck hemoglobin A1c every 3 months to monitor his progress. Further adjustment in medication can be done with the help of his PCP. Recommend follow-up with PCP in 1 week to follow-up his care. Fall precautions in place. Vital Signs/Physical Exam: Temp Pulse Resp BP Pulse Ox 97.8 F 60 18 136/65 97 12/01/20 08:03 12/01/20 08:03 12/01/20 08:03 12/01/20 08:03 12/01/20 08:03 General: Alert, In no apparent distress, Oriented x3, Cooperative HEENT: Atraumatic Neck: Supple Respiratory: Clear to auscultation bilaterally, Normal air movement Cardiovascular: Normal pulses, Regular rate/rhythm Gastrointestinal: Normal bowel sounds, No ascites, No tenderness, No masses, No rebound, No guarding Musculoskeletal: No erythema, No tenderness, No warmth Integumentary: No tenderness/swelling Neurological: Normal speech, Normal strength at 5/5 x4 extr, Normal tone Laboratory Data at Discharge: WBC 3.10 K/uL (4.3-10.9) L D 12/01/20 06:10 Hgb 10.8 g/dL (13.6-17.9) L 12/01/20 06:10 Hct 31.8 % (39.6-49.0) L 12/01/20 06:10 Plt Count 94 K/uL (152-406) L 12/01/20 06:10 PT 17.6 SECONDS (9.5-12.5) H 11/28/20 18:19 INR 1.52 11/28/20 18:19 APTT 30.8 SECONDS (24.3-36.9) 11/28/20 18:19 Sodium 139 mmol/L (136-145) 12/01/20 06:10 Potassium 4.1 mmol/L (3.5-5.1) 12/01/20 06:10 BUN 18 mg/dL (7-18) 12/01/20 06:10 Creatinine 1.02 mg/dL (0.55-1.3) 12/01/20 06:10 Glucose 123 mg/dL (74-106) H 12/01/20 06:10 Uric Acid 6.4 mg/dL (3.5-7.2) D 11/30/20 06:08 Phosphorus 3.2 mg/dL (2.5-4.9) D 12/01/20 06:10 Magnesium 2.0 mg/dL (1.8-2.4) 12/01/20 06:10 Total Bilirubin 1.1 mg/dL (0.2-1.0) H 12/01/20 06:10 AST 47 U/L (15-37) H 12/01/20 06:10 ALT 23 U/L (12-78) 12/01/20 06:10 Alkaline Phosphatase 225 U/L (45-117) H 12/01/20 06:10 Triglycerides 93 mg/dL (<150) 11/29/20 05:40 Cholesterol 133 mg/dL (<200) 11/29/20 05:40 HDL Cholesterol 37 mg/dL (40-60) L 11/29/20 05:40 Cholesterol/HDL Ratio 3.59 11/29/20 05:40 Lipase 57 U/L (73-393) L 11/28/20 18:19 Home Medications: Ezetimibe [Zetia*] 10 mg PO DAILY 05/23/18 Magnesium Oxide [Mag 0X*] 400 mg PO BID 05/23/18 Furosemide [Lasix*] 20 mg PO DAILY 06/26/18 Simvastatin 40 mg PO BEDTIME 06/26/18 Aspirin 81 mg PO DAILY 06/09/19 Carvedilol [Coreg] 12.5 mg PO BID 06/09/19 Glucerna Shake [Glucerna*] 237 ml PO TID #90 can 06/11/19 Amlodipine Besylate [Norvasc] 10 mg PO DAILY #30 tablet 08/30/19 Folic Acid 1 mg PO DAILY #90 tablet 12/01/20 Insulin Detemir [Levemir] 5 units SQ BEDTIME #1 bottle 12/01/20 Ondansetron [Zofran (Odt)*] 4 mg PO Q6H PRN #10 tab 12/01/20 Pantoprazole Sodium [Protonix] 40 mg PO DAILY #30 12/01/20 Sucralfate [Carafate*] 1 gm PO ACHS #90 tab 12/01/20 Thiamine HCl [Vitamin B-1*] 100 mg PO DAILY #90 tablet 12/01/20 New Medications: Sucralfate [Carafate*] 1 gm PO ACHS #90 tab Folic Acid 1 mg PO DAILY #90 tablet Insulin Detemir [Levemir] 5 units SQ BEDTIME #1 bottle Pantoprazole Sodium [Protonix] 40 mg PO DAILY #30 Thiamine HCl [Vitamin B-1*] 100 mg PO DAILY #90 tablet Ondansetron [Zofran (Odt)*] 4 mg PO Q6H PRN #10 tab PRN Reason: Nausea / Vomiting Physician Discharge Instructions: Patient presented with nausea, vomiting and dehydration. Acute renal injury was noted. Patient with history of GERD with hiatal hernia and history of esophageal stricture with recent dilatation. Other medical problems include alcoholic cirrhosis of the liver with chronic thrombocytopenia, diabetes mellitus type 2, CAD with prior stents and CABG, hypertension and hyperlipidemia. The patient was admitted. Patient received IV fluids. His condition improved. His diet was slowly advanced. Due to his GERD and hiatal hernia and recent dilatation patient was placed on Protonix. Carafate was added. At discharge patient doing well at this time. No significant nausea and vomiting. Patient tolerating his diet. At discharge the patient will continue with Protonix 40 mg daily and Carafate 1 g with every meal. Patient will continue with a soft diet. Patient may supplement with Glucerna 1 can 3 times a day. She will also continue with folic acid 1 mg daily and thiamine 100 mg daily. Recommend follow-up with GI in 2 to 4 weeks to follow-up his hospitalization. Recommend follow-up with his PCP in 1 week to follow-up hospitalization. Recommend to recheck labBMP in 1 week to follow-up his hospitalization. Patient may follow-up with nephrology who saw the patient during the course of his stay as an outpatient to continue to monitor. Patient with liver cirrhosis with chronic lymphocytopenia. Overall stable. Patient is seen by Dr. Dao in [place]. Recommend follow-up with liver specialist in 1 to 2 weeks to follow-up his hospitalization. He will continue his care. Patient has been taking Lasix 20 mg daily for increase edema. At discharge will recommend to continue Lasix if with increase edema and to use Lasix as needed. Patient may be able to control his edema with a 1500 cc/day fluid restriction. Patient with hypertension. At discharge patient will continue with his current medications of carvedilol 12.5 mg 1 pill twice daily and Norvasc 10 mg daily. Recommend to maintain blood pressure less than 130/80. Further adjustment can be done by his PCP. May need to hold medication if blood pressure systolic less than 110. Patient with CAD and prior stents. At discharge patient will continue with aspirin 81 mg daily and magnesium as directed. Recommend follow-up with cardiology as directed. Patient with hyperlipidemia. At discharge patient will continue with his medication of Zetia 10 mg daily and Zocor 40 mg daily. Patient with diabetes mellitus type 2. Hemoglobin A1c 8.2. Patient takes Levemir 35 units subcu twice daily at home. Patient did not require Levemir during the course of his stay. Blood sugar was well controlled with sliding scale. At discharge will recommend to decrease Levemir at 5 units subcu at bedtime. Recommend to monitor blood sugars at least twice daily. Recommend to maintain blood sugar less than 140 fasting and less than 200 after meals. If blood sugar remains above 200 patient will need to increase his Levemir appropriately for better control. Recommend to recheck hemoglobin A1c every 3 months to monitor his progress. Further adjustment in medication can be done with the help of his PCP. Recommend follow-up with PCP in 1 week to follow-up his care. Fall precautions in place. Diet: soft ADA Activity: Fall precautions Followup: NONE,NONE [Primary Care Provider] - Time spent managing pt's care (in minutes): 55
[2020-12-01] MEDS: GLUCERNA SHAKE 237 ML CAN PO SCH (09:00)
[2020-12-01] MEDS: HEPARIN 5000 UNIT/ML 1 ML VIAL SQ SCH (09:00)
[2020-12-01] MEDS: MAGNESIUM OXIDE 400 MG TAB PO SCH (09:00)
[2020-12-01] MEDS ORDERED: DOCUSATE NA 100 MG CAP PO SCH (09:00)
[2020-12-01] MEDS ORDERED: EZETIMIBE 10 MG TAB PO SCH (09:00)
[2020-12-01] MEDS ORDERED: PANTOPRAZOLE 40MG TABLET PO SCH (09:00)
[2020-12-01] MEDS ORDERED: AMLODIPINE 10 MG TAB PO SCH (09:00)
[2020-12-01] MEDS ORDERED: predniSONE 10 MG TAB PO SCH (09:00)
[2020-12-01] MEDS: carvediloL 12.5 MG TAB PO SCH (09:45)
[2020-12-01] MEDS: FOLIC ACID 1 MG TABLET PO SCH (09:47)
[2020-12-01] MEDS: THIAMINE HCL 100 MG TABLET PO SCH (09:47)
[2020-12-01 09:52] VITALS: O2SAT 97
[2020-12-01] MEDS ORDERED: SUCRALFATE 1 GM TABLET PO SCH (11:30)
--- NOTE | 2020-12-01 20:34 | P.PN ---
Date of Service: 12/01/20 Vital Signs Temp Pulse Resp BP Pulse Ox 97.8 F 63 18 136/65 97 12/01/20 08:03 12/01/20 09:46 12/01/20 08:03 12/01/20 09:46 12/01/20 08:03 Assessment/ Plan: Nephrology Progress Note Feeling better today. Good urine output. No chest pain or dyspnea No acute events overnight Vitals, medications blood work and imaging reviewed in the chart General: In no apparent distress, Cooperative HEENT: Atraumatic Neck: Supple Respiratory: Clear to auscultation bilaterally Cardiovascular: No edema, Regular rate/rhythm Gastrointestinal: Non-distended Musculoskeletal: No clubbing, No contractures Integumentary: No rashes, No cyanosis Neurological: Normal speech Blood work reviewed in the chart. Imagings Data: EXAM DESCRIPTION: RAD - Chest Single View - 11/28/2020 6:21 pm CLINICAL HISTORY: COUGH Chest pain. COMPARISON: Chest Single View dated 05/15/2020; Chest Pa And Lat (2 Views) dated 10/09/2019; Chest Single View dated 09/10/2019; Chest Single View dated 08/28/2019 FINDINGS: Portable technique limits examination quality. The lungs are grossly clear. The heart is normal in size. No displaced fractures.Sternotomy wires. IMPRESSION: No acute intrathoracic process suspected. EXAM DESCRIPTION: CT - Abdomen Pelvis Wo Contrast - 11/28/2020 9:19 pm CLINICAL HISTORY: Abdominal pain. ABD PAIN COMPARISON: Abdomen Pelvis Wo Contrast dated 05/15/2020 TECHNIQUE: CT imaging of the abdomen and pelvis was performed without contrast. Solid organ, bowel and vascular assessment is limited due to lack of IV and oral contrast. All CT scans are performed using dose optimization technique as appropriate and may include automated exposure control or mA/KV adjustment according to patient size. FINDINGS: The lower lung adams are clear.Small pleural effusion. Moderate hiatal hernia is noted. Nodular contour to the liver parenchyma is seen compatible with liver cirrhosis. Gallstone is present in the gallbladder.The spleen is mildly prominent in size. Pancreatic atrophy is noted. Both adrenal glands and both kidneys are within normal limits. Mild ascites is present. No bowel obstruction or free air. Mild thickening of the colon wall is noted. Guerrero catheter is in the urinary bladder. Small right inguinal hernia is present containing fluid. Hardware is noted spanning L2-4. IMPRESSION: Liver cirrhosis pattern is seen with mild ascites. Cholelithiasis. Moderate hiatal hernia. Colonic wall thickening is seen which could be secondary to colitis or portal colopathy. A limited non-contrast examination was performed as detailed. Conclusions/Impression: RACHEL likely due to hypovolemia CKD III -No NSAIDs Hypokalemia -Replete with oral potassium prn Acidosis Hypomagnesemia -Continue MagOx HypoPO4 -Encourage nutrition DM II with hyperglycemia -RISS Moderate malnutrition -Advance diet as tolerated Anemia in chronic illness -Monitor H&H Case reviewed with Dr. Roche
== END 2020-12-01 10:59 | disposition home or self-care (01) | DRG 683 ==
LOC: ER 17:41 → ERHOLD 20:39 → 2ND 22:20
PROVIDERS: ADMIT Family Medicine; ATTEND Family Medicine
DX: N17.9 Acute kidney failure, unspecified (principal); E46 Unspecified protein-calorie malnutrition; E87.2 Acidosis; I12.9 Hypertensive chronic kidney disease with stage 1 through stage 4 chronic kidney disease, or unspecified chronic kidney disease; E11.22 Type 2 diabetes mellitus with diabetic chronic kidney disease; E11.65 Type 2 diabetes mellitus with hyperglycemia; N18.30 Chronic kidney disease, stage 3 unspecified; Z68.23 Body mass index [BMI] 23.0-23.9, adult; D63.8 Anemia in other chronic diseases classified elsewhere; E83.42 Hypomagnesemia; E87.6 Hypokalemia; R11.10 Vomiting, unspecified; E86.0 Dehydration; K70.30 Alcoholic cirrhosis of liver without ascites; D69.6 Thrombocytopenia, unspecified; I25.10 Atherosclerotic heart disease of native coronary artery without angina pectoris; K21.9 Gastro-esophageal reflux disease without esophagitis; K44.9 Diaphragmatic hernia without obstruction or gangrene; E78.5 Hyperlipidemia, unspecified; Z95.5 Presence of coronary angioplasty implant and graft; Z95.1 Presence of aortocoronary bypass graft; Z20.822 Contact with and (suspected) exposure to COVID-19
CPT/HCPCS: 36415; 51702; 71045; 74176; 80048; 80053; 80061; 80076; 80307; 80320; 80329; 81003; 81015; 82010; 82140; 82805; 82947; 83036; 83690; 83735; 83880; 84100; 84132; 84439; 84443; 84484; 84550; 85025; 85610; 85730; 93005; 96372; 97116; 97161; 99285; C9113; J1644; J1815; J2270; J2405; J2550; J3411; J3475; J7030; U0003

== ENCOUNTER 2021-05-29 21:08 | Observation (INO) | payer OTHER, MEDICARE ==
--- OUTSIDE RECORDS SUMMARY | 2021-05-29 21:15 | XMS REPORT | Continuity of Care Document ---
:[address] [facility] t Address [address] [place] [address] Care Team Providers Name Role Phone Pcp, Does Not Have A Primary Care Physician KRISSY Attending Clinician Unavailable TRESA Attending Clinician Unavailable Anatoliy Davis MD Attending Clinician Jim HILTON Attending Clinician Unavailable Breezy GUEVARA Attending Clinician Romelia Awad MD Attending Clinician Ronda GOMEZ Attending Clinician Unique Garcia Attending Clinician Unavailable Richie Khoury Attending Clinician Unavailable Jim Awan MD Attending Clinician Aida Trivedi NP Attending Clinician Annabelle WHITE Attending Clinician Unavailable Mindy Mendoza DO Attending Clinician José Henry MD Attending Clinician Farrukh Ford MD Attending Clinician Quinn Attending Clinician Unavailable Doris GUEVARA I Attending Clinician RONDA Admitting Clinician Unavailable CARL Admitting Clinician Unavailable Payers Payer Name Policy Type Policy Number Effective Date Expiration Date S ource Problems Condition Condition Condition Status Onset Resolution Last Treating Co mments Source Name Details Category Date Date Treatment Clinician Date Cirrhosis Cirrhosis Disease Active Met hodi 07-31 st 00:00: Hospita 00 l Portal Portal Disease Active Methodi hypertensi hypertensi 07-31 on on 00:00: Hospita 00 l Splenomega Splenomega Disease Active M ethodi ly ly 07-31 00:00: Hospita 00 l Ascites Ascites Disease Active Methodi 07-31 st 00:00: Hospita 00 l Pleural Pleural Disease Active Methodi effusion effusion 07-31 on right on right 00:00: Hospit a 00 l Hydrothora Hydrothora Disease Active M ethodi x x 07-31 00:00: Hospita 00 l CKD CKD Disease Active Methodi (chronic (chronic 07-31 kidney kidney 00:00: Hospita disease) disease) 00 l stage 3, stage 3, GFR 30-59 GFR 30-59 ml/min ml/min Carotid Carotid Disease Active Methodi artery artery 07-31 st disease disease 00:00: Hospita 00 l BPH BPH Disease Active Methodi (benign (benign 07-31 prostatic prostatic 00:00: Hosp mahesh hyperplasi hyperplasi 00 l a) a) Abdominal Abdominal Disease Active Met hodi pain pain 07-21 00:00: Hospita 00 l RACHEL (acute RACHEL (acute Disease Active M ethodi kidney kidney 09-11 injury) injury) 00:00: Hospita 00 l Metabolic Metabolic Disease Active Met hodi acidosis acidosis 09-11 00:00: Hospita 00 l Alkaline Alkaline Disease Active Metho di phosphatas phosphatas 09-11 e e 00:00: Hospita elevation elevation 00 l 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 09-11 transferas transferas 00:00: Ho spita e (GGT) e (GGT) 00 l PNA PNA Disease Active Methodi (pneumonia (pneumonia 09-09 ) ) 00:00: Hospita 00 l COVID-19 COVID-19 Disease Active 2020-0 Metho di virus virus 09-09 detected detected 00:00: Hospit a 00 l Type 2 Type 2 Disease Recurre Methodi diabetes diabetes nce 09-09 st mellitus, mellitus, 00:00: Hosp mahesh with with 00 l long-term long-term current current use of use of insulin insulin Coronary Coronary Disease Recurre Meth elvia artery artery nce 09-09 st disease disease 00:00: Hospita involving involving 00 l coronary coronary bypass bypass graft graft Sepsis Sepsis Disease Active Methodi 09-09 st 00:00: Hospita 00 l Pneumonia Pneumonia Disease Active Met hodi due to due to 09-09 COVID-19 COVID-19 00:00: Hospit a virus virus 00 l HLD HLD Disease Recurre Methodi (hyperlipi (hyperlipi nce 09-09 demia) demia) 00:00: Hospita 00 l GERD GERD Disease Recurre Methodi (gastroeso (gastroeso nce 09-09 phageal phageal 00:00: Hospita reflux reflux 00 l disease) disease) Back pain Back pain Disease Active Met hodi 3 st 00:00: Hospita 00 l Uncontroll Uncontroll Disease Active M ethodi ed type 2 ed type [address] diabetes diabetes 00:00: Hospit a mellitus mellitus 00 l with with peripheral peripheral neuropathy neuropathy HTN HTN Disease Active 2017-03 Methodi (hypertens (hypertens 2-28 st ion) ion) 00:00: Hospita 00 l 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 Metho di abscess abscess 2 st 00:00: Hospita 00 l Leg Leg Disease Active 2017-03 Methodi weakness, weakness, 19 st bilateral bilateral 00:00: Hosp mahesh 00 l Essential Essential Disease Active [facility] hypertensi hypertensi 6 Co llege on on 00:00: Medicin e Screening Screening Disease Active [facility] for STD for STD 08-27 College (sexually (sexually 00:00: of transmitte transmitte 00 Me dicin d disease) d disease) e 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-03 [facility] hypogonadi hypogonadi 1-14 Co llege sm sm 00:00: Medicin e Special Special Disease Active 2016-03 [facility] screening screening -14 [employer] [employer] for for 00:00: of malignant malignant 00 Medi kat neoplasm neoplasm e of of prostate prostate Iron Iron Disease Active Methodi deficiency deficiency 09-25 anemia anemia 00:00: Hospita secondary secondary 00 l to to inadequate inadequate dietary dietary iron iron intake intake Hospital Hospital Disease Active Metho di discharge discharge 09-11 follow-up follow-up 00:00: Hosp mahesh 00 l Altered Altered Disease Active Methodi mental mental 09-04 status, status, 00:00: Hospita unspecifie unspecifie 00 l d d Acute Acute Disease Active Methodi alcoholic alcoholic 09-04 hepatitis hepatitis 00:00: Hosp mahesh 00 l Hyperkalem Hyperkalem Disease Active M ethodi ia ia 09-04 00:00: Hospita 00 l Lactic Lactic Disease Active Methodi acidosis acidosis 09-04 00:00: Hospita 00 l Alcohol Alcohol Disease Active Methodi abuse abuse 09-04 00:00: Hospita 00 l Hepatorena Hepatorena Disease Active M ethodi l syndrome l syndrome 09-04 00:00: Hospita 00 l Nausea and Nausea and Disease Active M ethodi vomiting vomiting 09-04 00:00: Hospita 00 l Normocytic Normocytic Disease Active M ethodi anemia anemia 09-04 00:00: Hospita 00 l Hypogonadi Hypogonadi Disease Active [facility] male male 3-07 College 00:00: of 00 Medicin e BPH BPH Disease Active 2012-03 [facility] (benign (benign 03-04 College prostatic prostatic 00:00: of hypertroph hypertroph 00 Me dicin y) with y) with e urinary urinary obstructio obstructio n n Erectile Erectile Disease Active 2012-03 [facility] r dysfunctio dysfunctio 03-04 Co llege n n 00:00: of 00 Medicin e History of History of Disease Active 2012-03 U nivers nonmelanom nonmelanom 0-21 it y of a skin a skin 00:00: [place] cancer cancer 00 Medical Branch Allergies, Adverse Reactions, Alerts Allergy Allergy Status [...] Stop Date Source Natural father Heart disease [facility] Natural mother Heart disease [facility] Social History Social Habit Start Date Stop Date Quantity Comments Source Exposure to Not sure [facility]-CoV-2 (event) [facility] History of tobacco Cigarette Smoker [facility] History [facility] Den[facility]ational Alcohol Std Drinks Hospit al History [facility]inge [facility] Alcohol intake 2021-03-27 2021-03-27 .43 /d Denominational 00:00:00 00:00:00 Hospital Cigarettes smoked 2019-09-10 2019-09-10 [facility] [place] [facility] current (pack per 00:00:00 00:00:00 Hospita l day) - Reported Cigarette 2019-09-10 2019-09-10 [facility]ational pack-years 00:00:00 00:00:00 Hospital Tobacco use and 2019-09-10 2019-09-10 Smokeless Denominational exposure 00:00:00 00:00:00 tobacco non-user Hospital History SDOH 2019-09-10 2019-09-10 3 Den[facility]ational Alcohol Frequency 00:00:00 00:00:00 Hospita l Alcohol Comment 2018-01-31 2018-01-31 3 week Denominational 00:00:00 00:00:00 Hospital Sex Assigned At [address] [facility] 00:00[facility]00 [facility] Smoking Status Start Date Stop Date Source Ex-smoker 2019-09-10 00:00:00 2019-09-10 00:00:00 [facility] Never smoker [facility] Medications Ordered Filled Start Stop Current Ordering Indication Dosage Frequency Signature Comments Components Source Medication Medication Date Date Medication? Clinician (SIG) Name Name howard Yes Apply Univers L (EFUDEX) 1-31 daily to L ity of 5 % cream 00:00: ear, face Alberto as 00 and scalp Medical as Branch tolerated for 3 weeks. insulin Yes 30U QD Inject 30 Metho di detemir 1-[address] U-100 13:02: under the Hospita (LEVEMIR) 10 skin every l 100 unit/mL morning. injection magnesium Yes 400mg Q.5D Take 400 Met hodi oxide 1-[address] (MAG-OX) 13:02: mouth 2 Hospit a 400 mg 10 (two) l (241.3 mg times a magnesium) day. tablet aspirin Yes 81mg Q.5D Take 81 mg Meth elvia (ECOTRIN) 1-[address] 81 MG 13:02: (two) Hospita enteric 10 times a l coated day. tablet ferrous Yes 325mg QD Take 325 Metho di sulfate 325 1-[address] (65 FE) MG 13:02: mouth Hospit a tablet 10 daily with l breakfast. HYDROcod[place] [id number] 1{tbl} Q4H Take 1 M ethodi -acetaminop 1-[address] hen (NORCO) 13:02: mouth Hospi ta 7.5-325 mg 10 every 4 l per tablet (four) hours as needed for mild pain or moderate pain .acute pain. (per Prescripti on Drug Monitoring Program, last filled 01/09/2021 , quantity: 56, day supply: 28) insulin Yes [id number] Inject Me thodi ASPART -[id number] (NovoLOG) 13:02: 3D skin 3 Hospit a 100 unit/mL 10 (three) l injection times a day with meals. Use per sliding scale bimatoprost Yes 1[drp] QD Administer Methodi (LUMIGAN) 1-[address] 0.01 % 13:02: both eyes Hospit a ophthalmic 10 nightly. l drops carvediloL Yes 25mg QD Take 25 mg M ethodi (COREG) 25 1-[address] MG tablet 13:02: daily. Hospit a 10 l insulin 0 Yes QD Inject Methodi detemir 1-[address] U-100 13:02: skin Hospita (LEVEMIR) 10 nightly. l 100 unit/mL Use per injection sliding scale hydrOXYzine 0 Yes 25mg Q24H Take 25 mg Methodi (ATARAX) 25 1-[address] MG tablet 13:02: daily as Hosp mahesh 10 needed for l itching. lubiproston 0 Yes 8ug Q.5D Take 8 mcg Methodi e (AMITIZA) 1-[address] 8 MCG 13:02: (two) Hospita capsule 10 times a l day as needed for constipati on. metoclopram 0 Yes 5mg Q.5D Take 5 mg M ethodi gerald 1-[address] (REGLAN) 5 13:02: (two) Hospit a MG tablet 10 times a l day as needed (Nausea and Vomiting). ondansetron Yes 4mg Q8H Take 4 mg M ethodi ODT 1-[address] (ZOFRAN-ODT 13:02: every 8 Hos cat ) 4 MG 10 (eight) l disintegrat hours as ing tablet needed for nausea or vomiting. pantoprazol 0 Yes 40mg Q.5D Take 40 mg Methodi e 1-[address] (PROTONIX) 13:02: (two) Hospit a 40 MG EC 10 times a l tablet day. sertraline Yes 100mg QD Take 100 Me thodi (ZOLOFT) 1-[address] 100 MG 13:02: mouth Hospita tablet 10 daily. l bisacodyL 0 2021- Yes 5mg Q.5D Take 1 Metho di (Dulcolax, -24 02-24 tablet (5 st bisacodyl,) 00:00: 05:59 mg total) Hospita 5 mg EC 00 :00 by mouth 2 l tablet (two) times a day for 30 days. furosemide 2020-03- No 80mg QD Take 2 Meth elvia (Lasix) 40 2-17 01-[address] mg tablet 00:00: 05:59 (80 mg Hospi ta 00 :00 total) by l mouth daily for 30 days. spironolact 2020-03 No 50mg QD Take 1 Met hodi one 17 -17 tablet (50 st (Aldactone) 00:00: 05:59 mg total) Hospita 50 MG 00 :00 by mouth l tablet daily for 30 days. esomeprazol 2020-03 No 20mg Q24H Take 20 mg Methodi e (NexIUM) 04-[address] 20 MG 15:21: 00:00 daily as Hospita capsule 04 :00 needed l (take if acid flare up is persistent ). fluconazole 2020-03 No 100mg QD Take 1 Me thodi (Diflucan) 0-08 10-[address] 100 MG 00:00: 04:59 (100 mg Hospita tablet 00 :00 total) by l mouth daily for 10 days. hydrOXYzine No 12.5mg Q8H Take 0.5 Methodi (ATARAX) 25 9-10 10-[address] MG tablet 00:00: 04:59 (12.5 mg Hos cat 00 :00 total) by l mouth every 8 (eight) hours as needed for itching for up to 30 days. sertraline No 100mg QD Take 1 Met hodi (Zoloft) 9-10 10-[address] 100 MG 00:00: 04:59 (100 mg Hospita tablet 00 :00 total) by l mouth daily for 30 days. metoclopram No 5mg Q.[id number] Take 1 Methodi gerald 9-10 10-11 [id number] tablet (5 st (Reglan) 5 00:00: 04:59 3D mg total) H ospita MG tablet 00 :00 by mouth 3 l (three) times a day before meals for 30 days. spironolact No 25mg QD Take 25 mg Methodi one 09-[address] (ALDACTONE) 11:32: 00:00 daily. Hos cat 25 MG 20 :00 l tablet furosemide No 20mg Q.5D Take 20 mg Methodi (LASIX) 20 09-21- by mouth 2 st mg tablet 11:32: 00:00 (two) Hospit a 20 :00 times a l day. traZODone No 50mg QD Take 50 mg M ethodi (DESYREL) 09-[address] 50 MG 10:01: 00:00 nightly as Hospi ta tablet 29 :00 needed for l sleep. furosemide 2020- No 40mg QD Take 1 Meth elvia (Lasix) 40 09-21 tablet (40 st mg tablet 00:00: 04:59 mg total) Ho spita 00 :00 by mouth l daily for 30 days. spironolact No 50mg QD Take 1 Met hodi one 09-21 tablet (50 st (Aldactone) 00:00: 04:59 mg total) Hospita 50 MG 00 :00 by mouth l tablet daily for 30 days. hydrOXYzine 2020- No 12.5mg Q8H Take 0.5 Methodi (ATARAX) 25 09-[address] MG tablet 00:00: 04:59 (12.5 mg Hos cat 00 :00 total) by l mouth every 8 (eight) hours as needed for itching for up to 30 days. bisacodyL No 5mg Q.5D Take 1 Metho di (DULCOLAX) 08-31 tablet (5 st 5 mg EC 00:00: 04:59 mg total) Hosp mahesh tablet 00 :00 by mouth 2 l (two) times a day for 30 days. polyethylen 2020- No 17g Q.[id number] Take 17 g Methodi e glycol 08-31 [id number] [address] mouth [address] (GLYCOLAX) 00:00: 04:59 3D (three) Hos cat 17 00 :00 times a l gram/dose day for 30 powder days. riFAXimin 2020- No [id number] 550mg Q.5D Take 1 Methodi (Xifaxan) 08-[address] 550 mg 00:00: 04:59 (550 mg Hospita tablet 00 :00 total) by l mouth 2 (two) times a day for 30 days. amLODIPine 2020- No [id number] 10mg QD Take 1 Methodi (NORVASC) 5-26 06-26 tablet (10 st 10 mg 00:00: 04:59 mg total) Hospit a tablet 00 :00 by mouth l daily for 30 days. amLODIPine 2020- No 10mg QD Take 10 mg Methodi (NORVASC) 5-25 05-[address] 10 mg 15:20: 00:00 nightly as Hospi ta tablet 20 :00 needed l (high blood pressure). ezetimibe-s 2020- No 1{tbl} QD Take 1 M ethodi imvastatin 5-25 05-[address] (VYTORIN) 15:20: 00:00 mouth Hospit a 10-40 mg 20 :00 nightly. l per tablet pantoprazol No 40mg QD Take 40 mg Methodi e 5-25 05-[address] (PROTONIX) 15:20: 00:00 daily Hospi ta 40 MG EC 20 :00 before l tablet breakfast. furosemide No 20mg QD Take 20 mg Methodi (LASIX) 20 5-25 05-[address] mg tablet 13:14: 00:00 daily. Hospi ta 37 :00 l carvediloL 2020- No 12.5mg Q.5D Take 12.5 Methodi (COREG) 5-25 05-[address] 12.5 MG 13:14: 00:00 mouth 2 Hospit a tablet 33 :00 (two) l times a day with meals. esomeprazol 2020- No 20mg QD Take 20 mg Methodi e (NexIUM) 5-25 05-[address] 20 MG 13:14: 00:00 daily Hospita capsule 33 :00 before l breakfast. esomeprazol 2020- No 20mg QD Take 1 Met hodi e (NexIUM) 5-25 06-[address] 20 MG 00:00: 04:59 (20 mg Hospita capsule 00 :00 total) by l mouth daily before breakfast for 30 days. carvediloL 2020- No 12.5mg Q.5D Take 1 Me thodi (COREG) 5-25 06-[address] 12.5 MG 00:00: 04:59 (12.5 mg Hospi ta tablet 00 :00 total) by l mouth 2 (two) times a day with meals for 30 days. lactulose 2020- No 10g Q.5D Take 15 mL M ethodi 10 gram/15 07-26-25 ([address] mL (15 mL) 00:00: 04:59 total) by H ospita solution 00 :00 mouth 2 l (two) times a day for 30 days. atorvastati 2020- No 40mg QD Take 1 Met hodi n (LIPITOR) 07-26- tablet (40 s t 40 mg 00:00: 04:59 mg total) Hospit a tablet 00 :00 by mouth l nightly for 30 days. furosemide 2020- No 40mg QD Take 2 Meth elvia (LASIX) 20 07-26-[address] mg tablet 00:00: 04:59 (40 mg Hospi ta 00 :00 total) by l mouth daily for 30 days. methocarbam 2020- No 500mg Q.[id number] Take 500 Methodi ol 5-20 05-[id number] (ROBAXIN) 20:05: 00:00 3D mouth 3 Hosp mahesh 500 MG 04 :00 (three) l tablet times a day. lisinopriL 2020- No 40mg QD Take 40 mg Methodi (PRINIVIL) 5-20 05-[address] 40 mg 20:04: 00:00 daily. Hospita tablet 58 :00 l insulin 2020- No 8U Q.[id number] Inject 8 Methodi lispro 5-20 05-[id number] (HumaLOG) 20:03: 00:00 3D under the Ho spita 100 unit/mL 44 :00 skin 3 l injection (three) times a day before meals. GUAIFENESIN 2020- No 400mg Q.[id number] Take 400 Methodi ORAL 5-20 05-[id number] 20:03: 00:00 3D mouth 3 Hospita 07 :00 (three) l times a day. ezetimibe-s 2020- No 1{tbl} QD Take 1 M ethodi imvastatin 5-20 05-[address] (VYTORIN) 20:03: 00:00 mouth Hospit a 10-40 mg 01 :00 nightly. l per tablet sildenafil Yes [id number] Take by [facility] citrate 06-15 [facility] [place] 00:00: daily for of 100 MG 00 HTN and Medicin tablet ED. e testosteron 2020- No [id number] 200 mg/cc, [facility] e cypionate 06-15 1 vial = Col lege (DEPOTESTOT 00:00: 00:00 10 of ERONE 00 :00 ccInject Medicin CYPIONATE) _0.75_ cc e 200 MG/ML IM Q _7_ injection days. silver 2018-03 Yes [id number] Apply to jenny sulfADIAZIN 0-22 area(s) 2 ity of E 00:00: (two) Lazaro (SILVADENE) 00 times Medical 1 % cream daily. Branch simvastatin Yes 40mg QD Take 40 mg Methodi (ZOCOR) 40 4-[address] mg tablet 00:00: nightly. Hosp mahesh 00 l naloxone 2020- No .2mg Infuse 0.5 Me thodi (NARCAN) 4-05 05-20 mL (0.[address] 0.4 mg/mL 00:00: 00:00 total) Hospi ta injection 00 :00 into a l venous catheter once as needed for opioid reversal or respirator y depression . testosteron 2020- No 200 mg/cc, [facility] e cypionate 08-27 1 vial = Col lege (DEPOTESTOT 00:00: 00:00 10 of ERONE 00 :00 ccInject Medicin CYPIONATE) _0.75_ cc e 200 MG/ML IM Q _7_ injection days. sildenafil 2020- No Take by [facility] citrate 08-27 [facility] 00:[facility]: 00:00 daily for of 100 MG 00 :00 HTN and Medicin tablet ED. e anastrozole 2016-03 Yes Take one [facility] (ARIMIDEX) 1-27 per week Colle ge 1 MG tablet 00:00: of 00 Medicin e FENOFIBRATE Yes Take by Un jenny NANOCRYSTAL 5-25 mouth. ity of LIZED 08:49: [place] (TRICOR 56 Medical ORAL) Branch EZETIMIBE/S Yes Take by Un jenny IMVASTATIN 5-25 mouth. ity of (VYTORIN 08:49: [place] 10-20 ORAL) 56 Medical Branch enalapril Yes 5mg Take 5 mg Uni vers (VASOTEC) 5 5-25 by mouth ity of mg tablet 08:49: daily. [place] 55 Medical Branch fluorouraci Yes Apply to [facility] l (EFUDEX) 2-20 area(s) 2 ity of 5 % cream 00:00: (two) [place] 00 times Medical daily. Branch Vital Signs Vital Name Observation Time Observation Value Comments Source Systolic blood 2020-06-16 00:05:00 133 mm[Hg] [facility] pressure Medicine Diastolic blood 2020-06-16 00:05:00 78 mm[Hg] [facility] pressure Medicine Heart rate 2020-06-16 00:05:00 97 /min [facility] Systolic blood 2021-03-30 17:45:00 158 mm[Hg] [facility] pressure Diastolic blood 2021-03-30 17:45:00 68 mm[Hg] [facility] pressure Heart rate 2021-03-30 17:45:00 79 /min [facility] Body temperature 2021-03-30 17:45:00 36.44 Bianca [facility] Respiratory rate 2021-03-30 17:45:00 20 /min [facility] Oxygen saturation in 2021-03-30 17:45:00 99 /min [facility] Arterial blood by Pulse oximetry Body height 2021-03-27 18:59:00 165.1 cm [facility] Body weight 2021-03-27 18:59:00 62.596 kg [facility] BMI 2021-03-27 18:59:00 22.96 kg/m2 [facility] Procedures Procedure Date / Time Performing Clinician Source Performed PROTHROMBIN TIME WITH INR 2021-03-30 18:11:00 Karl Oakes [facility] HEMOGLOBIN A1C 2021-03-30 18:11:00 Karl Oakes spital FIBRINOGEN 2021-03-30 18:11:00 Karl Oakes spital COMPREHENSIVE METABOLIC 2021-03-30 18:11:00 Krissy, [facility] PANEL CBC WITH PLATELET AND 2021-03-30 18:11:00 Krissy, [facility] DIFFERENTIAL US ABDOMINAL PARACENTESIS 2021-03-30 18:00:00 Krissy [facility] [place] [facility] IMAGING ANAEROBIC CULTURE 2021-03-30 16:59[facility]-03-30 16:59:00 Karl Oakes spital GRAM STAIN 2021-03-30 16:59:00 Karl Oakes spital ALBUMIN, [facility] FLUID 2021-03-30 16:59[facility] AMYL[facility] LEVEL, [facility] FLUID 2021-03-30 16:59:00 Krissy [facility] [place] [facility] LDH, [facility] FLUID 2021-03-30 16:59:00 Karl Oakes spital PROTEIN, [facility] FLUID 2021-03-30 16:59:[facility] CELL COUNT AND 2021-03-30 16:59:00 Karl Oakes spital DIFFERENTIAL, BODY FLUID [facility]IDES, [facility] 2021-03-30 16:59:00 Krissy [facility] [place] [facility] CYTOLOGY 2021-03-30 16:59:00 Karl Oakes spital (NON-GYNECOLOGICAL) REQUEST AEROBIC CULTURE 2021-03-23 18:00:00 Karl Oakes spital ANAEROBIC CULTURE 2021-03-23 18:00[facility] 2021-03-23 18:00:00 Karl Oakes spital CELL COUNT AND 2021-03-23 18:00:00 Karl Oakes spital DIFFERENTIAL, BODY FLUID AMYLASE LEVEL, [facility] FLUID 2021-03-23 [facility], [facility] FLUID 2021-03-23 18:00:[facility] PROTEIN, MISC FLUID 2021-03-23 18:00:[facility] LDH, [facility] FLUID 2021-03-23 18:00:00 Karl Oakes spital TRIGLYCERIDES, [facility] FLUID 2021-03-23 18:00[facility] 2021-03-23 18:00:00 Karl Oakes spital (NON-GYNECOLOGICAL) REQUEST US ABDOMINAL PARACENTESIS 2021-03-23 17:47:22 [facility] COMPREHENSIVE METABOLIC 2021-03-16 [facility]:30[facility]EN 2021-03-16 20:30:00 Karl Oakes spital PROTHROMBIN TIME WITH INR 2021-03-16 20:30:[facility] CBC WITH PLATELET AND 2021-03-16 [facility]OMINAL PARACENTESIS 2021-03-16 17:40:[facility] AEROBIC CULTURE 2021-03-16 17:15:00 Karl Oakes spital GRAM STAIN 2021-03-16 17:15:00 Karl Oakes spital ANAEROBIC CULTURE 2021-03-16 17:15:[facility] AND 2021-03-16 17:15:00 Karl Oakes spital DIFFERENTIAL, BODY FLUID ALBUMIN, [facility] FLUID 2021-03-16 17:15:00 Krissy [facility] AMYLASE LEVEL, [facility] FLUID 2021-03-16 17:15:[facility] L[facility], [facility] FLUID 2021-03-16 17:15:00 Karl Oakes spital PROTEIN, [facility] FLUID 2021-03-16 17:15:00 [facility] TRIGLYCERIDES, [facility] FLUID 2021-03-16 17:15:00 Krissy [facility] [place] [facility] CYTOLOGY 2021-03-16 17:15:00 Karl Oakes spital (NON-GYNECOLOGICAL) REQUEST US ABDOMINAL PARACENTESIS 2021-03-09 20:00:00 Krissy [facility] [place] [facility] IMAGING AEROBIC CULTURE 2021-03-09 19:50:00 Krissy Karleileen Boyd spital ANAEROBIC CULTURE 2021-03-09 19:50:[facility] 2021-03-09 19:50:00 Karl Oakes spital AFB CULTURE 2021-03-09 19:50:00 Karl Oakes spital FUNGUS SMEAR 2021-03-09 19:50:00 Karl Oakes spital AFB STAIN 2021-03-09 19:50:00 Karl Oakes spital [facility]IN[facility] 2021-03-09 19:50:00 [facility] AMYLASE LEVEL, [facility] FLUID 2021-03-09 19:50:00 Krissy [facility] [place] [facility] LDH, [facility] 2021-03-09 19:50:00 Karl Oakes spital PROTEIN, MISC FLUID 2021-03-09 19:50:00 [facility] TRIGLYCERIDES, [facility] FLUID 2021-03-09 19:50:00 [facility] [facility] CELL COUNT AND 2021-03-09 19:50:00 Karl Oakes spital DIFFERENTIAL, BODY FLUID CYTOLOGY 2021-03-09 19:50:00 Karl Oakes spital (NON-GYNECOLOGICAL) REQUEST US ABDOMINAL PARACENTESIS 2021-02-23 23:13:56 Krissy [facility] IMAGING ANAEROBIC CULTURE 2021-02-23 22:40[facility] 2021-02-23 22:40:00 Karl Oakes spital [employer] CULTURE 2021-02-23 22:40:00 Karl Oakes spital FUNGUS CULTURE 2021-02-23 22:40:00 Karl Oakes spital FUNGUS SMEAR 2021-02-23 22:40:00 Karl Oakes spital [employer] STAIN 2021-02-23 22:40:00 Karl Oakes spital [facility]IN, [facility] 2021-02-23 22:40:00 [facility] AMYLASE LEVEL, [facility] FLUID 2021-02-23 22:40:00 Krissy [facility] LDH, MISC FLUID 2021-02-23 22:40:00 Karl Oakes spital PROTEIN, [facility] 2021-02-23 22:40:00 [facility] CELL COUNT AND 2021-02-23 22:40:00 Karl Oakestal DIFFERENTIAL, BODY FLUID TRIGLYCERIDES, [facility] 2021-02-23 22:40:00 Krissy [facility] CYTOLOGY 2021-02-23 22:40:00 Karl Oakes spital (NON-GYNECOLOGICAL) REQUEST POTASSIUM LEVEL 2021-02-23 21:40:00 [facility] POC GLUCOSE 2021-02-23 21:40:00 Karl Oakes spital BASIC METABOLIC PANEL 2021-02-23 19:20:00 Angella Chiu [facility] ESTIMATED GFR 2021-02-23 19:20:00 [facility] PROTHROMBIN TIME WITH INR 2021-02-17 19:11:00 Krissy [facility] FIBRINOGEN 2021-02-17 19:11:00 Karl Oakes spidustin COMPREHENSIVE METABOLIC 2021-02-17 19:11:00 Krissy, [facility] PANEL CBC WITH PLATELET AND 2021-02-17 19:11:00 [facility] DIFFERENTIAL US ABDOMINAL PARACENTESIS 2021-02-15 21:00:00 [facility] IMAGING ANAEROBIC CULTURE 2021-02-15 20:35[facility]00 [facility] 2021-02-15 20:35:00 Breezy [facility] Denominational spital GRAM STAIN 2021-02-15 20:35:00 Breezy [facility] spital ALBUMIN, MISC FLUID 2021-02-15 20:35:00 [facility] TRIGLYCERIDES, MISC FLUID 2021-02-15 20:35:00 [facility] PROTEIN, MISC FLUID 2021-02-15 20:35:00 [facility] AMYLASE LEVEL, MISC FLUID 2021-02-15 20:35:00 [facility] CELL COUNT AND 2021-02-15 20:35:00 Rupinder Tijerina marthatal DIFFERENTIAL, BODY FLUID CYTOLOGY 2021-02-15 20:35:00 Ethan Tijerinaha Herberth thomastal (NON-GYNECOLOGICAL) REQUEST POC GLUCOSE 2021-02-01 20:04:00 Ty Basurto spital US ABDOMINAL PARACENTESIS 2021-02-01 17:30:00 Ana Maria Naranjo [facility] IMAGING AEROBIC CULTURE 2021-02-01 17:00:00 [facility] ANAEROBIC CULTURE 2021-02-01 17:00:00 [facility] GRAM STAIN 2021-02-01 17:00:00 Herberth Awad Marcello R. CELL COUNT AND 2021-02-01 17:00:00 [facility] DIFFERENTIAL, BODY FLUID PROTEIN, MISC FLUID 2021-02-01 17:00:00 Jose A [facility] LDH, [facility] FLUID 2021-02-01 17:00:00 [facility] ALBUMIN, [facility] FLUID 2021-02-01 17:00:00 [facility] PH, [facility] FLUID 2021-02-01 17:00:00 [facility] GLUCOSE LEVEL, [facility] FLUID 2021-02-01 17:00:00 [facility] AMYLASE LEVEL, [facility] FLUID 2021-02-01 17:00:00 [facility] Marcello REma POC GLUCOSE 2021-02-01 15:25:00 Ty Basurto COMPREHENSIVE METABOLIC 2021-02-01 12:30:00 Ronda [facility] PANEL ESTIMATED GFR 2021-02-01 12:30:00 Ty Basurto HC COMPLETE BLD COUNT 2021-02-01 10:31:00 [facility] W/AUTO DIFF PHOSPHORUS LEVEL 2021-02-01 10:31:00 [facility] MAGNESIUM LEVEL 2021-02-01 10:31:00 [facility] COMPREHENSIVE METABOLIC 2021-02-01 10:31:00 [facility] PANEL ESTIMATED GFR 2021-02-01 10:31:00 Ty Basurtotal POC GLUCOSE 2021-02-01 04:07:00 Ty Basurto spital ECG 12-LEAD 2021-02-01 03:51:51 [facility] LIPID PANEL 2021-02-01 03:48:00 [facility] HEMOGLOBIN A1C 2021-02-01 03:48:00 [facility] B NATRIURETIC PEPTIDE 2021-02-01 03:48:00 [facility] COVID-19 QUALITATIVE 2021-01-31 23:23:00 [facility] RT-PCR Marcello León POC GLUCOSE 2021-01-31 21:14:00 [facility] Marcello REma XR CHEST 1 VW PORTABLE 2021-01-31 20:41:00 Reba Whelan [facility] PROTHROMBIN TIME WITH INR 2021-01-31 20:14:00 Tip [facility] PARTIAL THROMBOPLASTIN 2021-01-31 20:14:00 [facility] TIME (PTT) HI CRITICAL CARE, E/M 2021-01-31 20:06:18 [facility] 30-74 MINUTES Marcello León HC COMPLETE BLD COUNT 2021-01-31 18:50:00 MendozaShana villegas [facility] W/AUTO DIFF COMPREHENSIVE METABOLIC 2021-01-31 18:50:00 [facility] PANEL ESTIMATED GFR 2021-01-31 18:50:00 [facility] PARTIAL THROMBOPLASTIN 2021-01-25 18:32:00 [facility] TIME (PTT) PROTHROMBIN TIME WITH INR 2021-01-25 18:32:00 [facility] FIBRINOGEN 2021-01-25 18:32:00 [facility] Ho spital COMPREHENSIVE METABOLIC 2021-01-25 18:32:00 [facility] PANEL HC COMPLETE BLD COUNT 2021-01-25 18:32:00 [facility] W/AUTO DIFF ESTIMATED GFR 2021-01-25 18:32:00 [facility] Ho spital AEROBIC CULTURE 2021-01-05 19:10:00 [facility] 2021-01-05 19:10:00 Krissy, [facility] US ABDOMINAL PARACENTESIS 2021-01-05 18:31:30 Krissy, [facility] IMAGING GRAM STAIN 2021-01-05 18:10:00 Krissy [facility] Denominational Ho spital AMYLASE LEVEL, MISC FLUID 2021-01-05 18:10:00 [facility] ALBUMIN, MISC FLUID 2021-01-05 18:10:00 [facility] PROTEIN, MISC FLUID 2021-01-05 18:10:00 [facility] LDH, MISC FLUID 2021-01-05 18:10:00 Karl Oakes spital TRIGLYCERIDES, MISC FLUID 2021-01-05 18:10:00 [facility] CELL COUNT AND 2021-01-05 18:10:00 Karl Oakes spital DIFFERENTIAL, BODY FLUID CYTOLOGY 2021-01-05 18:10:00 Karl Oakes spital (NON-GYNECOLOGICAL) REQUEST US ABDOMINAL PARACENTESIS 2020-12-22 19:25:20 [facility] IMAGING AMYLASE LEVEL, [facility] FLUID 2020-12-22 18:50:00 Krissy, [facility] ALBUMIN, MISC FLUID 2020-12-22 18:50:00 [facility] PROTEIN, MISC FLUID 2020-12-22 18:50:00 [facility] LDH, MISC FLUID 2020-12-22 18:50:00 Karl Oakes spital TRIGLYCERIDES, MISC FLUID 2020-12-22 18:50:00 [facility] CELL COUNT AND 2020-12-22 18:50:00 Karl Oakes spital DIFFERENTIAL, BODY FLUID CYTOLOGY 2020-12-22 18:50:00 Karl Oakes spital (NON-GYNECOLOGICAL) REQUEST AEROBIC CULTURE 2020-12-22 18:20:00 Karl Oakes spital ANAEROBIC CULTURE 2020-12-22 18:20:[facility] 2020-12-22 18:20:00 Karl Oakes spital US ABDOMINAL PARACENTESIS 2020-12-09 21:00:00 Krissy [facility] IMAGING ANAEROBIC CULTURE 2020-12-09 19:42:00 [facility] 2020-12-09 19:42:00 Karl Oakes spital GRAM STAIN 2020-12-09 19:42:00 Karl Oakes spital CELL COUNT AND 2020-12-09 19:42:00 Karl Oakes spital DIFFERENTIAL, BODY FLUID AMYLASE LEVEL, [facility] FLUID 2020-12-09 19:42:00 [facility] LDH, [facility] FLUID 2020-12-09 19:42:00 Karl Oakes spital TRIGLYCERIDES, [facility] FLUID 2020-12-09 19:42:00 [facility] PROTEIN, [facility] FLUID 2020-12-09 19:42:00 [facility] ALBUMIN, [facility] FLUID 2020-12-09 19:42:00 [facility] CYTOLOGY 2020-12-09 19:42:00 Karl Oakestal (NON-GYNECOLOGICAL) REQUEST HC COMPLETE BLD COUNT 2020-12-09 16:34:00 Krissy [facility] W/AUTO DIFF COMPREHENSIVE METABOLIC 2020-12-09 16:34:00 Krissy [facility] PANEL FIBRINOGEN 2020-12-09 16:34:00 Karl Oakes spital PROTHROMBIN TIME WITH INR 2020-12-09 16:34:00 [facility] ESTIMATED GFR 2020-12-09 16:34:00 Karl Oakes spital ALBUMIN, [facility] FLUID 2020-11-16 22:17:00 [facility] AMYLASE LEVEL, [facility] FLUID 2020-11-16 22:17:00 [facility] LDH, MISC FLUID 2020-11-16 22:17:00 Karl Oakes spital PROTEIN, MISC FLUID 2020-11-16 22:17:00 Krissy [facility] TRIGLYCERIDES, MISC FLUID 2020-11-16 22:17:00 [facility] CELL COUNT AND 2020-11-16 22:17:00 Karl Oakes spital DIFFERENTIAL, BODY FLUID US ABDOMINAL PARACENTESIS 2020-11-16 20:19:14 [facility]Y 2020-11-16 19:50:00 Karl Oakes spital (NON-GYNECOLOGICAL) REQUEST AEROBIC CULTURE 2020-11-16 17:39:00 Karl Oakes spital GRAM STAIN 2020-11-16 17:39:[address] ABDOMEN W WO CONTRAST 2020-11-14 18:33:[address] [facility] 2020-11-11 18:45:00 Karl Oakes spital PROTHROMBIN TIME WITH INR 2020-11-11 18:45:00 [facility] COMPREHENSIVE METABOLIC 2020-11-11 18:45:00 Krissy, [facility] PANEL CBC WITH PLATELET AND 2020-11-11 18:45:[facility]IC [facility]ABOLIC PANEL 2020-11-03 18:14:[facility] CBC WITH PLATELET AND 2020-11-03 18:14:[facility]FFERENTIAL HEPATIC FUNCTION PANEL 2020-11-03 18:14:00 [facility] WITH INR 2020-11-03 18:14:00 [facility] US ABDOMINAL PARACENTESIS 2020-09-27 18:00:00 [facility] IM[facility]ING AEROBIC CULTURE 2020-09-27 17:30:00 Karl Oakes spital GRAM STAIN 2020-09-27 17:30:00 Karl Oakes ANAEROBIC CULTURE 2020-09-27 17:30:00 [facility] ALBUMIN, [facility] FLUID 2020-09-27 17:30:00 [facility] AMYLASE LEVEL, [facility] FLUID 2020-09-27 17:30:00 [facility] PROTEIN, [facility] FLUID 2020-09-27 17:30:00 [facility] LDH, [facility] FLUID 2020-09-27 17:30:00 Karl Oakes TRIGLYCERIDES, [facility] FLUID 2020-09-27 17:30:00 [facility] CELL COUNT AND 2020-09-27 17:30:00 Francisco Oakesshdar butler DIFFERENTIAL, BODY FLUID CYTOLOGY 2020-09-27 17:30:00 Krissy [facility] Herberth Boyd spidustin (NON-GYNECOLOGICAL) REQUEST POC GLUCOSE 2020-07-26 13:11:00 Jose Ford COMPLETE BLD COUNT 2020-07-26 10:11:00 [facility] W/AUTO DIFF COMPREHENSIVE METABOLIC 2020-07-26 10:11:00 [facility] PANEL MAGNESIUM LEVEL 2020-07-26 10:11:00 [facility] PHOSPHORUS LEVEL 2020-07-26 10:11:00 [facility] PROTHROMBIN TIME WITH INR 2020-07-26 10:11:00 [facility] PARTIAL THROMBOPLASTIN 2020-07-26 10:11:00 [facility] TIME (PTT) ESTIMATED GFR 2020-07-26 10:11:00 [facility] POC GLUCOSE 2020-07-26 10:08:00 Jose Ford POC GLUCOSE 2020-07-26 07:05:00 Jose Ford POC GLUCOSE 2020-07-26 02:53:00 Jose Ford [facility] POC GLUCOSE 2020-07-25 22:02:00 Jose Ford [facility] POC GLUCOSE 2020-07-25 16:31:00 Jose Ford [facility] POC GLUCOSE 2020-07-25 12:55:00 Carl [facility] HC COMPLETE BLD COUNT 2020-07-25 09:46:00 [facility] W/AUTO DIFF COMPREHENSIVE METABOLIC 2020-07-25 09:46:00 [facility] PANEL MAGNESIUM LEVEL 2020-07-25 09:46:00 [facility] PHOSPHORUS LEVEL 2020-07-25 09:46:00 [facility] PROTHROMBIN TIME WITH INR 2020-07-25 09:46:00 [facility] PARTIAL THROMBOPLASTIN 2020-07-25 09:46:00 [facility] TIME (PTT) ESTIMATED GFR 2020-07-25 09:46:00 [facility] 2020-07-25 09:40:00 [facility] POC GLUCOSE 2020-07-25 05:20:00 [facility] POC GLUCOSE 2020-07-25 01:37:00 [facility] POC GLUCOSE 2020-07-24 21:13:00 [facility] POC GLUCOSE 2020-07-24 16:55:00 [facility] POC GLUCOSE 2020-07-24 13:10:00 [facility] HC COMPLETE BLD COUNT 2020-07-24 08:43:00 [facility] W/AUTO DIFF COMPREHENSIVE METABOLIC 2020-07-24 08:43:00 [facility] PANEL MAGNESIUM LEVEL 2020-07-24 08:43:00 [facility] PHOSPHORUS LEVEL 2020-07-24 08:43:00 [facility] PROTHROMBIN TIME WITH INR 2020-07-24 08:43:00 [facility] PARTIAL THROMBOPLASTIN 2020-07-24 08:43:00 [facility] TIME (PTT) ESTIMATED GFR 2020-07-24 08:43:00 Kelly Shana Mindy [facility] POC GLUCOSE 2020-07-24 08:39:00 [facility] POC GLUCOSE 2020-07-24 05:09:00 [facility] POC GLUCOSE 2020-07-24 01:28:00 [facility] POC GLUCOSE 2020-07-23 23:13:00 [facility] POC GLUCOSE 2020-07-23 20:39:00 [facility] XR HIP 3-4 VIEWS BILATERAL 2020-07-23 19:58:00 [facility] XR LUMBAR SPINE COMPLETE 2020-07-23 19:57:00 [facility] 4+ VW POC GLUCOSE 2020-07-23 16:13:00 [facility] POC GLUCOSE 2020-07-23 13:06:00 [facility] POC GLUCOSE 2020-07-23 11:35:00 [facility] POC GLUCOSE 2020-07-23 10:31:00 [facility] HC COMPLETE BLD COUNT 2020-07-23 09:03:00 [facility] W/AUTO DIFF COMPREHENSIVE METABOLIC 2020-07-23 09:03:00 [facility] PANEL MAGNESIUM LEVEL 2020-07-23 09:03:00 [facility] PHOSPHORUS LEVEL 2020-07-23 09:03:00 [facility] PROTHROMBIN TIME WITH INR 2020-07-23 09:03:00 [facility] PARTIAL THROMBOPLASTIN 2020-07-23 09:03:00 [facility] TIME (PTT) ESTIMATED GFR 2020-07-23 09:03:00 Mendoza [facility] POC GLUCOSE 2020-07-23 07:06:00 [facility] POC GLUCOSE 2020-07-23 02:11:00 [facility] POC GLUCOSE 2020-07-22 22:33:[address] [facility] POC GLUCOSE 2020-07-22 20:14:00 [facility] US ABDOMINAL DOPPLER 2020-07-22 19:00:00 [facility] POC GLUCOSE 2020-07-22 18:43:00 [facility] US HEPATIC 2020-07-22 18:10:00 [facility] US ABDOMINAL PARACENTESIS 2020-07-22 17:40:00 [facility] IMAGING AF[employer] STAIN 2020-07-22 17:34:00 [facility] AF[employer] CULTURE 2020-07-22 17:34:00 [facility] AEROBIC CULTURE 2020-07-22 17:34:00 [facility] ANAEROBIC CULTURE 2020-07-22 17:34:00 [facility] GRAM STAIN 2020-07-22 17:34:00 MendozaShana mcmahon [facility] LDH, MISC FLUID 2020-07-22 17:33:00 [facility] PROTEIN, MISC FLUID 2020-07-22 17:33:00 [facility] CELL COUNT AND 2020-07-22 17:33:00 Mylavarapu, [facility] DIFFERENTIAL, BODY FLUID ALBUMIN, [facility] FLUID 2020-07-22 17:33:00 [facility] BILIRUBIN TOTAL, [facility] 2020-07-22 17:33:00 Mylavarapu, [facility] FLUID PH, [facility] FLUID 2020-07-22 17:33:00 Mylavarapu, [facility] GLUCOSE LEVEL, [facility] FLUID 2020-07-22 17:33:00 Mylavarapu, [facility] TRIGLYCERIDES, [facility] FLUID 2020-07-22 17:33:00 Mylavarapu, [facility] TTE COMPLETE, WO CONTRAST, 2020-07-22 16:01:45 [facility] W DOPPLER ([id number]) ECG 12-LEAD 2020-07-22 14:13:26 Mylavarapu, [facility] POC GLUCOSE 2020-07-22 13:14:[address] [facility] POC GLUCOSE 2020-07-22 10:08:[address] [facility] ANTI MITOCHONDRIA SCREEN 2020-07-22 06:26:00 [place] [facility] HC COMPLETE BLD COUNT 2020-07-22 06:26:00 [facility] W/AUTO DIFF HEPATITIS A ANTIBODY IGM 2020-07-22 06:25:00 [place] [facility] Awais HEPATITIS B SURFACE 2020-07-22 06:25:00 [facility]ais HEPATITIS B CORE ANTIBODY 2020-07-22 06:25:00 Parmjit Sethi [facility] TOTAL Awais HEPATITIS C ANTIBODY 2020-07-22 06:25:[address] [place] [facility] Awais IMMUNOGLOBULIN M 2020-07-22 06:24:00 [facility] CANCER ANTIGEN 19-9 2020-07-22 06:24:00 [place] [facility] Awais COMPREHENSIVE METABOLIC 2020-07-22 06:24:00 [facility] PANEL MAGNESIUM LEVEL 2020-07-22 06:24:00 [facility] PHOSPHORUS LEVEL 2020-07-22 06:24:00 [facility] ESTIMATED GFR 2020-07-22 06:24:00 Shana Mendoza [facility] ALPHA FETOPROTEIN 2020-07-22 06:23:00 [facility] Awais CARCINOEMBRYONIC ANTIGEN 2020-07-22 06:23:00 [facility] Awais POC GLUCOSE 2020-07-22 06:21:00 [facility] PROTHROMBIN TIME WITH INR 2020-07-22 06:20:00 [facility] PARTIAL THROMBOPLASTIN 2020-07-22 06:20:00 [facility] TIME (PTT) POC GLUCOSE 2020-07-22 03:01:00 [facility] POC GLUCOSE 2020-07-22 01:52:[address] [facility] [address] CHEST WO CONTRAST 2020-07-22 00:00:04 [facility] ANTI SMOOTH MUSCLE AB 2020-07-21 21:20:00 [facility] SCREEN KYLIE 2020-07-21 21:20:00 [facility] HIV AG/AB COMBINATION 2020-07-21 21:20:00 [facility] TROPONIN 2020-07-21 21:20:00 [facility] PROCALCITONIN 2020-07-21 21:20:00 [facility] HEPATITIS ACUTE PANEL 2020-07-21 21:20:00 MendozaShana villegas [facility] ALCOHOL LEVEL, BLOOD 2020-07-21 21:20:00 [facility] Shana [facility] ANTI SMOOTH MUSCLE AB 2020-07-21 21:20:00 Shana Mendoza [facility] TITER BLOOD CULTURE, AEROBIC & 2020-07-21 21:18:00 Mendoza, [facility] ANAEROBIC COVID-19 QUALITATIVE 2020-07-21 21:18:00 Shana Mendoza [facility] RT-PCR BLOOD CULTURE, AEROBIC & 2020-07-21 21:17:00 Kelly [facility] ANAEROBIC LACTIC ACID LEVEL 2020-07-21 20:17:00 [facility] PROCALCITONIN 2020-07-21 20:17:00 [facility] FERRITIN LEVEL 2020-07-21 20:17:00 [facility] FOLATE LEVEL 2020-07-21 20:17:00 [facility] LDH 2020-07-21 20:17:00 [facility] TOTAL IRON BINDING 2020-07-21 20:17:00 [facility] CAPACITY THYROID STIMULATING 2020-07-21 20:17:00 [facility] HORMONE VITAMIN B12 LEVEL 2020-07-21 20:17:00 [facility] TROPONIN 2020-07-21 20:17:00 MendozaShana mcmahon [facility] CT RENAL STONE PROTOCOL 2020-07-21 20:09:37 Shana Mendoza [facility] HI CRITICAL CARE, E/M 2020-07-21 18:35:43 Shana Mendoza [facility] 30-74 MINUTES XR CHEST 1 VW PORTABLE 2020-07-21 18:06:00 Shana Mendoza [facility] URINE CULTURE 2020-07-21 17:25:00 MendozaShana mcmahon [facility] HC COMPLETE BLD COUNT 2020-07-21 17:25:00 Shana Mendoza [facility] W/AUTO DIFF COMPREHENSIVE METABOLIC 2020-07-21 17:25:00 Shana Mendoza [facility] PANEL LIPASE LEVEL 2020-07-21 17:25:00 Mendoza, [facility] URINALYSIS SCREEN AND 2020-07-21 17:25:00 MendozaShana villegas [facility] MICROSCOPY, WITH REFLEX TO CULTURE PHOSPHORUS LEVEL 2020-07-21 17:25:00 Mendoza, [facility] MAGNESIUM LEVEL 2020-07-21 17:25:00 Mendoza, [facility] TROPONIN 2020-07-21 17:25:00 Mendoza, [facility] B NATRIURETIC PEPTIDE 2020-07-21 17:25:00 Shana Mendoza [facility] AMMONIA LEVEL 2020-07-21 17:25:00 Mendoza, [facility] ESTIMATED GFR 2020-07-21 17:25:00 Mendoza, [facility] PROTHROMBIN TIME WITH INR 2020-07-21 17:25:00 Mendoza, [facility] PARTIAL THROMBOPLASTIN 2020-07-21 17:25:00 MendozaShana villegas [facility] TIME (PTT) LIPID PANEL 2020-07-21 17:25:00 [facility] PROCALCITONIN 2020-07-21 17:25:00 [facility] FERRITIN LEVEL 2020-07-21 17:25:00 [facility] TOTAL IRON BINDING 2020-07-21 17:25:00 MendozaShana mcmahon [facility] CAPACITY LDH 2020-07-21 17:25:00 Mendoza, [facility] THYROID STIMULATING 2020-07-21 17:25:00 MendozaShana villegas [facility] HORMONE GGT 2020-07-21 17:25:00 Mendoza, [facility] BILIRUBIN DIRECT 2020-07-21 17:25:00 Mendoza, [facility] HEMOGLOBIN A1C 2020-07-21 17:25:00 Mendoza, [facility] FIBRINOGEN 2020-07-21 17:25:00 Mendoza, [facility] D-DIMER 2020-07-21 17:25:00 Shana Mendoza [facility] ACETAMINOPHEN LEVEL 2020-07-21 17:25:00 Shana Mendoza [facility] LIPID PANEL 2020-06-16 01:05:00 [facility] HEMATOCRIT 2020-06-16 01:05:00 Alhaji George [facility] ESTRADIOL 2020-06-16 01:05:00 [facility] PROLACTIN 2020-06-16 01:05:00 [facility]/TOTAL 2020-06-16 01:05:00 Alhaji [facility] Medicine Plan of Care Planned Activity Planned Date Details Comments Source Future Scheduled 2021-04-05 DIABETES: RETINAL EYE [facility] Test 00:30:01 EXAM [code = DIABETES: RETINAL EYE EXAM] Future Scheduled 2021-04-05 DIABETIC FOOT EXAM [facility] Test 00:30:01 [code = DIABETIC FOOT EXAM] Future Scheduled 2021-04-05 SHINGLES VACCINES (#1) M [facility] Test 00:30:01 [code = SHINGLES VACCINES (#1)] Future Scheduled 2021-04-05 65+ PNEUMOCOCCAL [facility] Test 00:30:01 VACCINE (2 of 4 - PPSV23) [code = 65+ PNEUMOCOCCAL VACCINE (2 of 4 - PPSV23)] Future Scheduled 2021-04-05 COVID-19 VACCINE (2 - [facility] Test 00:30:01 Moderna 3-dose series) [code = COVID-19 VACCINE (2 - Moderna 3-dose series)] Future Scheduled 2021-04-05 INFLUENZA VACCINE Method [facility] Test 00:30:01 [code = INFLUENZA VACCINE] Future Scheduled TETANUS SHOT (ADULT) [facility] Test [code = TETANUS SHOT Medicin e (ADULT)] Future Scheduled COVID-19 Vaccine (1) [facility] Test [code = COVID-19 Medicine Vaccine (1)] Future Scheduled ZOSTER VACCINE (1 of [facility] Test 2) [code = ZOSTER Medicine VACCINE (1 of 2)] Future Scheduled MEDICARE AWV (Initial) B [facility] of Test [code = MEDICARE AWV Medicin e (Initial)] Future Scheduled FALL SCREEN [code = [facility] Test FALL SCREEN] Medicine Future Scheduled [facility]OVAX >=65 [facility] (P[facility]) [code = Medicine PNEUMOVAX >=65 (PPSV23)] Future Scheduled FLU VACCINE > 6 MONTHS B [facility] Test [code = FLU VACCINE > Medici ne 6 MONTHS] Encounters Start End Encounter Admission Attending Care Care Encounter Source Date/Time Date/Time Type Type Clinicians Facility Department ID 2021-05-26 2021-05-26 Outpatient KRISSY, [facility] [id number] [place] 00:00:00 00:00:00 KARL 790 Method i 2021-05-24 2021-05-24 Outpatient GTZ, [facility] [id number] [place] 00:00:00 00:00:00 SHANA 228 Method i 2021-05-24 2021-05-24 Outpatient GTZ, [facility] [id number] [place] 00:00:00 00:00:00 SHANA [address] 2021-05-18 2021-05-18 Outpatient KRISSY, [facility] [id number] [place] 00:00:00 00:00:00 KARL [address] 2021-05-11 2021-05-11 Outpatient KRISSY, [facility] [id number] [place] 00:00:00 00:00:00 KARL [address] 2021-05-04 2021-05-04 Outpatient KRISSY, [facility] [id number] [place] 00:00:00 00:00:00 KARL [address] 2021-04-28 2021-04-28 Outpatient KRISSY, [facility] [id number] [place] 00:00:00 00:00:00 KARL [address] 2021-04-28 2021-04-28 Outpatient KRISSY, [facility] [id number] [place] 00:00:00 00:00:00 KARL [address] 2021-04-27 2021-04-27 [facility] [id number] [place] 00:00:00 00:00:00 KARL [address] 2021-04-20 2021-04-20 Outpatient KRISSY, [facility] [id number] [place] 00:00:00 00:00:00 KARL [address] 2021-04-13 2021-04-13 Outpatient KRISSY, [facility] [id number] [place] 00:00:00 00:00:00 KARL 193 Method i 2021-04-06 2021-04-06 Outpatient KRISSY, [facility] [id number] [place] 00:00:00 00:00:00 KARL 331 Method i 2021-04-03 2021-04-03 Office [facility] 1.2.840.114 884 [id number] [facility] 11:45:00 12:04:01 Visit Rinku BAEZ 350.1.13.10 ity aaliyah PATEL 4.2.7.2.686 [facility] [phone] [address] DI[facility]ETES [facility]INIC 2021-03-31 2021-03-31 Orders Serban, 1.2.840.1 [id number] 7369 Methodi 00:00:00 00:00:00 Only Ayla 94916.1.[address] 3.430.2.7 Hospit a .3.285045 l .8 2021-03-31 2021-03-31 Orders Krissy, 1.2.840.1 [id number] 9178 Methodi 00:00:00 00:00:00 Only Karl 34791.1.[address] 3.430.2.7 Hospit a .3.640198 l .8 2021-03-30 2021-03-30 Hospital KRISSY, 1.2.840.1 [id number] [id number] [place] 00:00:00 00:00:00 Encounter KARL 70892.1.1 [address] .3.325134 .8 2021-03-30 2021-03-30 Travel 1.2.840.1 1.2.546.961 5975 [id number] Methodi 00:00:00 00:00:[address] 3.430.2.7 0.2.7.3.698 Ho spita .3.917512 084.8 l .8 2021-03-27 2021-03-27 [facility], 1.2.840.1 [id number] 4503 Methodi 12:50:50 13:52:12 Visit Karl 51038.1.[address] 3.430.2.7 Hospit a .3.186944 l .8 2021-03-27 2021-03-27 Travel 1.2.840.1 1.2.332.889 4275 648153 Methodi 00:00:00 00:00:[address] 3.430.2.7 0.2.7.3.698 Ho spita .3.733385 084.8 l .8 2021-03-24 2021-03-24 Travel 1.2.840.1 1.2.521.438 0964 286992 Methodi 00:00:00 00:00:[address] 3.430.2.7 0.2.7.3.698 Ho spita .3.485642 084.8 l .8 2021-03-24 2021-03-24 [facility] Serban, 1.2.840.1 [id number] 6909 Methodi 00:00:00 00:00:00 Only Ayla 94465.1.[address] 3.430.2.7 Hospit a .3.595761 l .8 2021-03-23 2021-03-23 [facility], 1.2.840.1 [id number] 41801 Gunter 00:00:00 00:00:00 Encounter KARL 17241.1.1 [address] .3.280320 .8 2021-03-22 2021-03-22 Travel 1.2.840.1 1.2.867.242 2068 167538 Methodi 00:00:00 00:00:[address] 3.430.2.7 0.2.7.3.698 Ho spita .3.090867 084.8 l .8 2021-03-17 2021-03-17 Orders Serban, 1.2.840.1 [id number] 0890 Methodi 00:00:00 00:00:00 Only Ayla 49907.1.[address] 3.430.2.7 Hospit a .3.511831 l .8 2021-03-17 2021-03-17 Orders Krissy, 1.2.840.1 [id number] 4922 Methodi 00:00:00 00:00:00 Only Karl 37451.1.[address] 3.430.2.7 Hospit a .3.739824 l .8 2021-03-16 2021-03-16 [facility], 1.2.840.1 [id number] 78742 Gun[place] 00:00:00 00:00:00 Encounter KARL 85184.1.1 [address] .3.619289 .8 2021-03-16 2021-03-16 [facility], 1.2.840.1 [id number] 148895 9675 Methodi 00:00:00 00:00:00 Only Karl 44135.1.[address] 3.430.2.7 Hospit a .3.258447 l .8 2021-03-16 2021-03-16 Travel 1.2.840.1 1.2.878.053 9199 452755 Methodi 00:00:00 00:00:[address] 3.430.2.7 0.2.7.3.698 Ho spita .3.150169 084.8 l .8 2021-03-13 2021-03-13 Orders Serban, 1.2.840.1 [id number] 7443 Methodi 00:00:00 00:00:00 Only Ayla 03191.1.[address] 3.430.2.7 Hospit a .3.683076 l .8 2021-03-09 2021-03-09 [facility], 1.2.840.1 [id number] [place] 00:00:00 00:00:00 Encounter KARL 24615.1.1 [address] .3.016588 .8 2021-03-09 2021-03-09 Travel 1.2.840.1 1.2.723.974 5799 375242 Methodi 00:00:00 00:00:[address] 3.430.2.7 0.2.7.3.698 Ho spita .3.624775 084.8 l .8 2021-03-03 2021-03-03 [facility], 1.2.840.1 [id number] 7115 Methodi 00:00:00 00:00:00 Only Karl 93834.1.[address] 3.430.2.7 Hospit a .3.732482 l .8 2021-02-28 2021-02-28 Travel 1.2.840.1 1.2.957.873 7053 577113 Methodi 00:00:00 00:00:[address] 3.430.2.7 0.2.7.3.698 Ho spita .3.958530 084.8 l .8 2021-02-23 2021-02-23 [facility], 1.2.840.1 [id number] 16493 Methodi 12:47:03 23:59:00 Encounter Karl 48835.1.[address] 3.430.2.7 Hospit a .3.113498 l .8 2021-02-23 2021-02-23 Travel 1.2.840.1 1.2.377.387 5869 514953 Methodi 00:00:00 00:00:[address] 3.430.2.7 0.2.7.3.698 Ho spita .3.663714 084.8 l .8 2021-02-20 2021-02-20 Travel 1.2.840.1 1.2.293.680 8601 194554 Methodi 00:00:00 00:00:[address] 3.430.2.7 0.2.7.3.698 Ho spita .3.557319 084.8 l .8 2021-02-17 2021-02-17 Office Krissy, 1.2.840.1 [id number] 087704 5509 Methodi 11:50:54 12:50:17 Visit Karl 30333.1.[address] 3.430.2.7 Hospit a .3.949861 l .8 2021-02-17 2021-02-17 Travel 1.2.840.1 1.2.510.725 2378 294797 Methodi 00:00:00 00:00:[address] 3.430.2.7 0.2.7.3.698 Ho spita .3.056355 084.8 l .8 2021-02-16 2021-02-16 [facility] Serbanner, 1.2.840.1 [id number] 9109 Methodi 00:00:00 00:00:00 Only Ayla 70619.1.[address] 3.430.2.7 Hospit a .3.199545 l .8 2021-02-15 2021-02-[address] [facility], 1.2.840.1 [id number] 23342 91110 Methodi 13:00:00 23:59:00 Encounter Rupinder 50438.1.[address] 3.430.2.7 Hospit a .3.418103 l .8 2021-02-15 2021-02-15 Travel 1.2.840.1 1.2.579.540 0752 213046 Methodi 00:00:00 00:00:[address] 3.430.2.7 0.2.7.3.698 Ho spita .3.480921 084.8 l .8 2021-02-06 2021-02-06 Travel 1.2.840.1 1.2.015.446 4159 279152 Methodi 00:00:00 00:00:[address] 3.430.2.7 0.2.7.3.698 Ho spita .3.356354 084.8 l .8 2021-02-03 2021-02-03 [facility], 1.2.840.1 [id number] 1260 Methodi 00:00:00 00:00:00 Only Karl 77352.1.[address] 3.430.2.7 Hospit a .3.363056 l .8 2021-02-02 2021-02-02 [facility] 1.2.840.1 [id number] 29483 84884 Methodi 23:59:00 23:59:00 Encounter Rupinder 47611.1.[address] 3.430.2.7 Hospit a .3.733941 l .8 2021-01-31 2021-02-01 Emergency Marcello Awad 1.2.8 40.1 [id number] Methodi 12:23:00 15:20:00 Ty Basurto 53005.1.[address] 3.430.2.7 Hospit a .3.443561 l .8 2021-01-31 2021-01-31 Travel 1.2.840.1 1.2.904.131 7228 610472 Methodi 00:00:00 00:00:[address] 3.430.2.7 0.2.7.3.698 Ho spita .3.096829 084.8 l .8 2021-01-30 2021-01-30 [facility] 1.2.840.1 [id number] 11741 69772 Methodi 23:59:00 23:59:00 Encounter Rupinder 40299.1.[address] 3.430.2.7 Hospit a .3.844503 l .8 2021-01-25 2021-01-25 [facility], 1.2.840.1 [id number] 2022 Methodi 11:50:15 11:55:[address] 3.430.2.7 Hospit a .3.529623 l .8 2021-01-25 2021-01-25 Travel 1.2.840.1 1.2.631.602 6523 739490 Methodi 00:00:00 00:00:[address] 3.430.2.7 0.2.7.3.698 Ho spita .3.118077 084.8 l .8 2021-01-24 2021-01-24 [facility], 1.2.840.1 [id number] 264 [id number] Methodi 11:12:18 11:29:32 [address] Rupinder 66869.1.[address] 3.430.2.7 Hospit a .3.294868 l .8 2021-01-06 2021-01-06 [facility], 1.2.840.1 [id number] 8769 Methodi 00:00:00 00:00:00 Only Karl 27272.1.[address] 3.430.2.7 Hospit a .3.540895 l .8 2021-01-05 2021-01-05 [facility], 1.2.840.1 [id number] 17988 28401 Methodi 11:02:36 23:59:00 Encounter Karl 05504.1.[address] 3.430.2.7 Hospit a .3.081540 l .8 2021-01-05 2021-01-05 Travel 1.2.840.1 1.2.777.100 1533 656070 Methodi 00:00:00 00:00:[address] 3.430.2.7 0.2.7.3.698 Ho spita .3.955629 084.8 l .8 2020-12-27 2020-12-27 Travel 1.2.840.1 1.2.139.431 1836 320862 Methodi 00:00:00 00:00:[address] 3.430.2.7 0.2.7.3.698 Ho spita .3.447512 084.8 l .8 2020-12-22 2020-12-22 [facility], 1.2.840.1 [id number] 75011 Methodi 12:57:15 23:59:00 Encounter Karl 76115.1.[address] 3.430.2.7 Hospit a .3.384043 l .8 2020-12-22 2020-12-22 Travel 1.2.840.1 1.2.332.596 2464 402778 Methodi 00:00:00 00:00:[address] 3.430.2.7 0.2.7.3.698 Ho spita .3.451787 084.8 l .8 2020-12-20 2020-12-20 Travel 1.2.840.1 1.2.643.128 7131 048001 Methodi 00:00:00 00:00:[address] 3.430.2.7 0.2.7.3.698 Ho spita .3.243103 084.8 l .8 2020-12-09 2020-12-09 [facility], 1.2.840.1 [id number] 84599 16064 Methodi 12:41:04 23:59:00 Encounter Karl 27092.1.[address] 3.430.2.7 Hospit a .3.829353 l .8 2020-12-09 2020-12-09 [facility], 1.2.840.1 [id number] 748353 8621 Methodi 11:15:03 11:20:[address] 3.430.2.7 Hospit a .3.768760 l .8 2020-12-09 2020-12-09 [facility], 1.2.840.1 [id number] 3673 Methodi 09:59:53 10:53:14 Visit Karl 44089.1.[address] 3.430.2.7 Hospit a .3.233933 l .8 2020-12-09 2020-12-09 [facility], 1.2.840.1 [id number] 632971 7412 Methodi 00:00:00 00:00:00 Only Karl 71371.1.[address] 3.430.2.7 Hospit a .3.031485 l .8 2020-12-08 2020-12-08 Travel 1.2.840.1 1.2.681.169 3078 845575 Methodi 00:00:00 00:00:[address] 3.430.2.7 0.2.7.3.698 Ho spita .3.913687 084.8 l .8 2020-11-16 2020-11-16 [facility], 1.2.840.1 [id number] 23954 60012 Methodi 12:39:10 23:59:00 Encounter Karl 80368.1.[address] 3.430.2.7 Hospit a .3.785550 l .8 2020-11-16 2020-11-16 Travel 1.2.840.1 1.2.596.963 0179 891404 Methodi 00:00:00 00:00:[address] 3.430.2.7 0.2.7.3.698 Ho spita .3.752761 084.8 l .8 2020-11-14 2020-11-14 [facility], 1.2.840.1 [id number] 03237 Methodi 12:33:53 23:59:00 Encounter Karl 56208.1.[address] 3.430.2.7 Hospit a .3.779594 l .8 2020-11-14 2020-11-14 Travel 1.2.840.1 1.2.676.609 7141 191081 Methodi 00:00:00 00:00:[address] 3.430.2.7 0.2.7.3.698 Ho spita .3.460891 084.8 l .8 2020-11-11 2020-11-11 [facility], 1.2.840.1 [id number] 397705 1133 Methodi 11:26:15 12:44:45 Visit Karl 84259.1.[address] 3.430.2.7 Hospit a .3.607928 l .8 2020-11-11 2020-11-11 Travel 1.2.840.1 1.2.349.405 5328 745070 Methodi 00:00:00 00:00:[address] 3.430.2.7 0.2.7.3.698 Ho spita .3.642188 084.8 l .8 2020-11-10 2020-11-10 Orders Serban, 1.2.840.1 [id number] 213328 4289 Methodi 00:00:00 00:00:00 Only Ayla 15440.1.[address] 3.430.2.7 Hospit a .3.662119 l .8 2020-11-09 2020-11-09 Orders Serbanner, 1.2.840.1 [id number] 568511 9064 Methodi 00:00:00 00:00:00 Only Ayla 23891.1.[address] 3.430.2.7 Hospit a .3.381115 l .8 2020-09-21 2020-10-13 [facility], 1.2.840.1 [id number] 061579 3981 Methodi 09:53:51 16:26:53 Visit Karl 08728.1.[address] 3.430.2.7 Hospit a .3.639406 l .8 2020-09-27 2020-09-27 [facility], 1.2.840.1 [id number] 07176 49895 Methodi 10:00:00 23:59:00 Encounter Karl [address]7981.1.[address] 3.430.2.7 Hospit a .3.061354 l .8 2020-09-27 2020-09-27 Travel 1.2.840.1 1.2.539.343 0204 447827 Methodi 00:00:00 00:00:[address] 3.430.2.7 0.2.7.3.698 Ho spita .3.666130 084.8 l .8 2020-08-31 2020-09-22 Office Krissy, 1.2.840.1 [id number] 144894 4412 Methodi 09:51:14 00:45:44 Visit Karl 51416.1.[address] 3.430.2.7 Hospit a .3.440376 l .8 2020-09-22 2020-09-22 Refill Krissy, 1.2.840.1 [id number] 087083 9995 Methodi 00:00:00 00:00:[address] 3.430.2.7 Hospit a .3.650485 l .8 2020-09-22 2020-09-22 Refill Krissy, 1.2.840.1 [id number] 631347 8086 Methodi 00:00:00 00:00:[address] 3.430.2.7 Hospit a .3.829407 l .8 2020-09-22 2020-09-22 Refill Krissy, 1.2.840.1 [id number] 696026 1012 Methodi 00:00:00 00:00:[address] 3.430.2.7 Hospit a .3.635623 l .8 2020-09-21 2020-09-21 Travel 1.2.840.1 1.2.525.253 0891 106256 Methodi 00:00:00 00:00:[address] 3.430.2.7 0.2.7.3.698 Ho spita .3.051747 084.8 l .8 2020-09-01 2020-09-01 [facility] 1.2.840.1 [id number] Methodi 00:00:00 00:00:00 Fan blank 75836.1.[address] J 3.430.2.7 Hospit a .3.741847 l .8 2020-08-31 2020-08-31 Travel 1.2.840.1 1.2.246.050 9146 024481 Methodi 00:00:00 00:00:[address] 3.430.2.7 0.2.7.3.698 Ho spita .3.765043 084.8 l .8 2020-08-22 2020-08-22 Telephone Khoury, 1.2.840.1 [id number] 2099 544956 Methodi 00:00:00 00:00:00 Catina Quiroz 01041.1.[address] 3.430.2.7 Hospit a .3.932107 l .8 2020-08-17 2020-08-17 Office Osmin Awanjolynn Jim 1.2.840.1 104 451024 [id number] Methodi 13:08:55 13:23:55 Visit Alysa Trivedi 24960.1.[address] 3.430.2.7 Hospit a .3.015980 l .8 2020-08-17 2020-08-17 Travel 1.2.840.1 1.2.929.267 0193 707507 Methodi 00:00:00 00:00:[address] 3.430.2.7 0.2.7.3.698 Ho spita .3.837513 084.8 l .8 2020-08-12 2020-08-12 Telephone Khoury, 1.2.840.1 [id number] 2099 234145 Methodi 00:00:00 00:00:00 Cat[address]Ema [address]8526.1.[address] 3.430.2.7 Hospit a .3.079692 l .8 2020-08-03 2020-08-03 Telephone Annabelle 1.2.840.1 [id number] 334 [id number] Methodi 00:00:00 00:00:[address] 3.430.2.7 Hospit a .3.687811 l .8 2020-07-21 2020-07-26 [facility] Shana Mendoza 1.2.840.1 1040 30846 [id number] Methodi 11:18:00 15:20:00 Encounter Chau Henry 05929.1.[address] [place] 3.430.2.7 Hospita .3.538154 l .8 2020-07-22 2020-07-22 Camryn Zarate 1.2.840.1 [id number] Methodi 00:00:00 00:00:[address] 3.430.2.7 Hospit a .3.887058 l .8 2020-07-21 2020-07-21 Travel 1.2.840.1 1.2.583.942 4524 403132 Methodi 00:00:00 00:00:[address] 3.430.2.7 0.2.7.3.698 spita .3.508463 084.8 l .8 2020-06-15 2020-06-15 Office KATHARINA George 1.2.840.114 803 65822 [facility] 17:18:35 19:40:39 Visit Alhaji Miles AMBULATOR 350.1.13.21 [employer] Y 0.2.7.2.686 of 720.2185730 [facility] 300 e 2020-05-23 2020-05-23 Office CARLOS aDvis 1.2.840.114 816 49640 15:04:57 15:52:06 Visit Rinku Cope MULTISPEC 350.1.13.10 IALTY 4.2.7.2.686 [facility] [id number] [facility] Results Test Description Test Time Test Comments Results Result Comments Source Anaerobic culture 2021-04-03 18:08:11 Test Item Value Reference Range Interpretation Comme nts Anaerobic culture No anaerobic organisms Specimen InformationSpecimen isolate (test code = isolated. Source: Peritoneal fluidSpecimen 552) [id number] 23:36:50 Test Item Value Reference Range Interpretation Comments Aerobic culture No growth Specimen isolate (test after 3 days. InformationSp ecimen code = 498) Source: Periton eal fluidSpecimen S ite: abdominal [facility] [id number] 18:50:20 Test Item Value Reference Range Interpretation Comments Case number (test code = [id number]) Cytology See link below for (non-gynecological) PDF Lab Report report (test code = 1178) Result status (test code This is Final Report = [id number]) for [id number] [facility] [id number] 22:54:39 Test Item Value Reference Range Interpretation Comments Gram stain No WBC's or Specimen isolate (test organisms seen. Information Specimen code = 1469) Source: Periton eal fluidSpecimen S ite: abdominal [facility] differential, body [id number] 21:11:13 Test Item Value Reference Range Interpretation Comments Misc fluid type Peritoneal (test code = 09456-7) Color, fluid (test Yellow code = 6824-7) Appearance, fluid Slightly hazy (test code = 9335-1) RBC, fluid (test SEE COMMENT See_Comment 1+ (0 - 500 code = 84952-3) RBC/CMM) [Automated message] The system which generated this result transmit niranjan reference range : /CMM. The reference range was not used to interpret this result as normal/abnormal . Nucleated cells, See_Comment [Automated fluid (test code = message] The 33328-2) system which generated this result transmit niranjan reference range : /CMM. The reference range was not used to interpret this result as normal/abnormal . Fluid mononuclear See Diff cell (test code = 1407) Neutrophils, fluid 17 % (test code = 25228-0) Lymphocytes, fluid 42 % (test code = 16288-8) Macrophages, fluid 40 % (test code = 80204-7) Plasma cells, fluid 1 % (test code = 66138-9) TOÑA (test code = peritoneal fluid TOÑA) [facility] [id number] 20:04:51 Test Item Value Reference Range Interpretation Comments Fluid type Peritoneal (test code = 46174-3) Albumin, 0.3 g/dL The reference fluid (test interval(s) and other code = method performa nce 1747-5) specifications have not been establishe d for this body fluid . The test results mu st be integrated into the clinical contex t for interpretation. This test has been m odified from the [facility] instructions. The performance characteristics were determined by [facility]elle [facility] in a manner consiste nt with CLIA requiremen ts. This test has n ot been cleared or appr jaida by the [place] Food a nd Drug Administration. TOÑA (test peritoneal fluid code = TOÑA) [facility] [id number] 20:04:51 Test Item Value Reference Range Interpretation Comments Fluid type Peritoneal (test code = 42481-2) LDH, fluid 35 U/L The reference (test code = interval(s) and other 90492-7) method performa nce specifications have not been establishe d for this body fluid . The test results mu st be integrated into the clinical contex t for interpretation. This test has been m odified from the [facility] instructions. The performance characteristics were determined by Fuad chan in a manner consiste nt with CLIA requiremen ts. This test has n ot been cleared or appr jaida by the [place] Food a nd Drug Administration. TOÑA (test peritoneal fluid code = TOÑA) [facility] [id number] 20:04:51 Test Item Value Reference Range Interpretation Comments Fluid type Peritoneal (test code = 72521-3) Protein, 0.8 g/dL The reference fluid (test interval(s) and other code = method performa nce 2881-1) specifications have not been establishe d for this body fluid . The test results mu st be integrated into the clinical contex t for interpretation. This test has been m odified from the [facility] instructions. The performance characteristics were determined by Fuad chan in a manner consiste nt with CLIA requiremen ts. This test has n ot been cleared or appr jaida by the [place] Food a nd Drug Administration. TOÑA (test peritoneal fluid code = TOÑA) [facility] [id number] 20:04:51 Test Item Value Reference Range Interpretation Comments Fluid type Peritoneal (test code = 00028-6) Triglyceride, 41 mg/dL The reference fluid (test interval(s) and other code = method performa nce 47803-9) specifications have not been establishe d for this body fluid . The test results mu st be integrated into the clinical contex t for interpretation. This test has been m odified from the [facility] instructions. The performance characteristics were determined by Fuad chan in a manner consiste nt with CLIA requiremen ts. This test has n ot been cleared or appr jaida by the U[place] Food a nd Drug Administration. TOÑA (test peritoneal fluid code = TOÑA) [facility] [place] [facility] [place] [id number] 20:04:50 Test Item Value Reference Range Interpretation Comments Fluid type Peritoneal (test code = 42199-0) Amylase, 7 U/L The reference fluid (test interval(s) and other code = method performa nce 1795-4) specifications have not been establishe d for this body fluid . The test results mu st be integrated into the clinical contex t for interpretation. This test has been m odified from the [facility] instructions. The performance characteristics were determined by Fuad chan in a manner consiste nt with CLIA requiremen ts. This test has n ot been cleared or appr jaida by the U.[place] Food a nd Drug Administration. TOÑA (test peritoneal fluid code = TOÑA) [facility] [id number] 06:15:57 Test Item Value Reference Range Interpretation Comments Fungus culture No growth Specimen isolate (test after 4 weeks InformationSp ecimen code = 1441) of Source: Ascites incubation. FluidSpecimen S ite: Not otherwise speci fied [facility] [id number] 19:33:31 Test Item Value Reference Range Interpretation Comments AFB stain No acid fast Specimen (test code = bacilli (AFB) InformationSpe cimen 676-7) seen. Source: Ascites FluidSpecimen S ite: Not otherwise speci fied [facility] [id number] 19:01:58 Test Item Value Reference Range Interpretation Comments Fungus smear No fungi Specimen (test code = observed. InformationSpec imen Source: 1443) Ascites FluidSp ecimen Site: Not otherwise s pecified [facility] [id number] 22:02:18 Test Item Value Reference Range Interpretation Comments POC glucose (test code 189 mg/dL 65-99 H Opera tor Name: = 69222-8) Ronald Howell I D: [id number] able: [facility] Notified site supervising technical operator Interpretation Abnormal (test code = 41147-7) [facility] 12 [id number] 23:31:23 Test Item Value Reference Range Interpretation Comments Ventricular rate (test code = 253) QRSD interval (test code = 260) QT interval (test code = 264) QTC interval (test code = 265) QRS axis 1 (test code = 268) T wave axis (test code = 270) EKG impression (test Atrial code = 273) fibrillation-Right bundle branch block-Left anterior fascicular block-^^^ Bifascicular block ^^^-Septal infarct (cited on or before 31-JAN-2021)-Abnormal ECG-In automated comparison with ECG of 22-JUL-2020 09:13,-Questionable change in initial forces of [facility] leads[facility] [id number] 09:42:00 Test Item Value Reference Range Interpretation Comments Protein (test code = 7.3 g/dL 6.1-8.1 2885-2) Albumin, S (test 2.8 g/dL 3.6-5.1 L code = 1751-7) Globulin, total See_Comment H [Automated (test code = message] The 08997-7) system which generated this result transmitted reference range : 1.9 - 3.7 g/dL (calc). The reference range was not used to interpret this result as normal/abnormal . Albumin/globulin See_Comment L [Automated ratio (test code = message] The ) system which generated this result transmitted reference range : 1.0 - 2.5 (calc ). The reference range was not used to interpr et this result as normal/abnormal . Total bilirubin 1.1 mg/dL 0.2-1.2 (test code = 1974-04) Bilirubin direct 0.3 mg/dL See_Comment H [Automated (test code = 1967-09) message ] The system which generated this result transmitted reference range : < OR = 0.2. The reference range was not used to interpret this result as normal/abnormal . Bilirubin, indirect See_Comment [Automa niranjan (test code = 1970-03) message ] The system which generated this result transmitted reference range : 0.2 - 1.2 mg/dL (calc). The reference range was not used to interpret this result as normal/abnormal . Alkaline phosphatase 266 U/L 35-144 H (test code = 6768-6) AST (test code = 32 U/L 10-35 1920-8) ALT (test code = 14 U/L 9-46 2-6) RAC (test code = Performing RAC) Organization Information: Site ID: RGA Name: [facility] Address: [address] [place] [id number] Director: Shana Galicia Lab Interpretation Abnormal (test code = 14646-6) [facility] [id number] 01:40:51 Test Item Value Reference Range Interpretation Comments Urine culture Mixed tremayne Specimen isolate (test <=10-3 col/cc InformationSp ecimen code = 53525-1) Source: Urin eSpecimen Site: [facility] [id number] 11:30:08 Test Item Value Reference Range Interpretation Comments TESTOSTERONE LEVEL See_Comment L [Automat ed message] (test code = 2986-8) The sys tem which generated this result transmitted ref erence range: 300 - 72 0 NG/DL. The refe rence range was not u sed to interpret this result as normal/abnor mal. SEX HORMONE BINDING See_Comment H [Automa niranjan message] GLOBULIN (test code = The sy stem which 2941-) generated this result transmitted ref erence range: 19.3 - 7 6.4 NMOL/L. The ref erence range was not u sed to interpret this result as normal/abnor mal. CALC FREE TESTOSTERONE 24.4 PG/ML 47.0-244.0 L Unless (test code = 2991-8) Otherwi se Indicated, All Testing Per formed At: [facility], [address] [place] [address] Laboratory Dire ctor: Jim rios M.D. CLI A Number [id number] Cap Accreditati on No. Lab Interpretation Abnormal (test code = 78442-8) [facility] [id number] 11:28:20 Test Item Value Reference Range Interpretation Comments ESTRADIOL LEVEL 23.5 PG/ML See_Comment Note: Values in (test code = 2243-4) the ran ge of 17-25 PG/ML may demon strate increas ed imprecision. C linical correlation is recommended. Unless Otherwis e Indicated, All Testing Performed At: [facility], [address] [place], [place] [address] Lands Resource Manager: Jim Montes M.D. CLIA Number [id number] [facility] Accreditati on No. [Auto mated message] The sy stem which generated this result transmit niranjan reference range : <=60.7. The ref erence range was not u sed to interpret this result as normal/abnor mal. [facility] [id number] 11:28:20 Test Item Value Reference Range Interpretation Comments PROLACTIN (test See_Comment NOTE: Me thodology is Moises code = 2842-3) Leo Electro chemiluminescence Immunoassay (E CLIA). Values obtained with d ifferent assays/manufact urers cannot be used interchang eably. Results should not be u sed as sole basis to establ car[place] the presence or abs ence of malignancy. Unless Otherwise Indic ated, All Testing Perform ed At: [facility], [address] [place] [address] Laboratory Dire ctor: Jim Montes M.D. CLIA Number [id number] Cap Accreditation N o. [Automated mess age] The system which generated this result transmitted ref erence range: 4.0 - 26.0 NG/M L. The reference range was not u sed to interpret this result as normal/abnormal. [facility] Center[facility] + LH [id number] 11:28:20 Test Item Value Reference Range Interpretation Comments FOLLICLE STIMULATING See_Comment H [Autom ated message] HORMONE (test code = The sys tem which 48356-0) generated this result transmitted ref erence range: 1.5 - 12 .4 IU/L. The refer ence range was not u sed to interpret this result as normal/abnor mal. LUTEINIZING HORMONE See_Comment H Unless (test code = 27677-2) Otherw ise Indicated, All Testing Per formed At: [facility], [address] [place] [address] Laboratory Dire ctor: Jim rios M.D. CLIA Num mag [id number] Cap Accreditation N o. [Auto mated message] The sy stem which generated this result transmit niranjan reference range : 1.2 - 8.6 IU/L. The reference range was not used to int erpret this result as normal/abnormal . Lab Interpretation Abnormal (test code = 52656-8) [facility] CenterLIPID [id number] 10:19:48 Test Item Value Reference Range Interpretation Comments CHOLESTEROL (test code See_Comment [Aut omated message] = 2093-3) The system [facility] h generated this result transmitted ref erence range: <200 MG/ DL. The reference range was not used to int erpret this result as normal/abnormal . TRIGLYCERIDES (test See_Comment [Automa niranjan message] code = 2571-8) The system [facility] generated this result transmitted ref erence range: <150 MG/ DL. The reference range was not used to int erpret this result as normal/abnormal . HDL CHOLESTEROL (test See_Comment L [Auto mated message] code = 2085-9) The system [facility] generated this result transmitted ref erence range: >39 MG/D L. The reference range was not used to int erpret this result as normal/abnormal . LDL CHOLESTEROL See_Comment NOTE: CALCU LATED LDL CALCULATED (test code = [place] [address]-6) AAYUSH-HAUSER METHOD WHICHINCLUDES ADJUSTABLE TRIGLYCERIDE:VL DL CHOLESTEROL RAT IO.THIS FACTOR VARIES B Y MEASURED TRIGLY CERIDE AND NON-HDLCHOL ESTEROL CONCENTRATIONS WITH INCREASED CALCU LATED LDL SEENIN HIGH ER TRIGLYCERIDE OR LOWER NON-HDL SPECIME NS. FOR MOREINFORMATION , SEE CLIENT ANNOUNCE MENT AT [email or web address] [Automated mess age] The system [employer] generated this result transmitted ref erence range: <100 MG/ DL. The reference range was not used to int erpret this result as normal/abnormal . LDL/HDL RATIO, SERUM See_Comment Unless (test code = 95927-0) Otherw ise Indicated, All Testing Per formed At: [facility], [address] [place] [address] Laboratory Dire ctor: Guanako Montiel Num mag [id number] Cap Accreditation N o. [Auto mated message] The sy stem which generated this result transmit niranjan reference range : <3.55 RATIO. The refe rence range was not u sed to interpret this result as normal/abnor mal. Lab Interpretation Abnormal (test code = 07887-1) [facility] [id number] 06:55:01 Test Item Value Reference Range Interpretation Comments HEMATOCRIT (test code = 34.8 % 40.0-51.0 L Unless 58496-4) Otherwise Indic ated, All Testing Per formed At: [facility], [address] [place] [address] Laboratory Dire ctor: Jim rios M.D. CLIA Num mag [id number] Cap Accreditation N o. Lab Interpretation Abnormal (test code = 93575-8) [facility])2019-08-29 09:44:00 Test Item Value Reference Range Interpretation Comments SARS-COV2/RT-PCR (test code = Positive Not Detected, Negative A A [id number]) SARS-COV-2 PERFORMING LAB [facility] (test code = 0073782) Results are for the detection of SARS-CoV-2 RNA. The SARS-CoV-2 RNA is generally detectable in nasopharyngeal swab specimens during the acute phase of infection. Positive results are indicative of active infection with SARS-CoV-2 and the patient is presumed to be contagious. Laboratory test results should always be considered in the clinical correlation with patient history and other epidemiological and diagnostic information that is necessary to determine patient infection status. Patient management decisions should follow current CDC guidelines. Positive results do not rule out bacterial infection or co- infection with other viruses. The agent detected may not be the definite cause of disease.The limit of detection for this assay is 800 copies/mL.This SARS CoV- 2 test is a real-time RT-PCR test intended for the qualitative detection of nucleic acid from SARS-CoV-2 in a nasopharyngeal swab specimen collected from individuals suspected of COVID-19 by their healthcare provider.This test has not been Food and Drug Administration (FDA) cleared or approved. This is a modified version of an approved Emergency Use Authorization (EUA) and is in the process of review by the FDA. Once authorized by the FDA, the issued EUA will be effective until the declaration that circumstances exist justifying the authorization of the emergency use of in vitro diagnostic tests for detection and/or diagnosis of COVID-19 is terminated under Section 564(b)(2) of the Act or the EUA is revoked under Section 564(g) of the Act.Fact Sheet for Healthcare Providers:https://www.qupowervault.com/sites/default/files/product/d ocuments/Bixo_Uywek_IX_Msdxrfkqm_Ikdf_PTNS-XnE-0.pdfFact Sheet for Healthcare Patients:https://www.gokit idel.com/sites/default/files/product/documents/Fact_Sheet_Patients_Lyra_SARS-CoV -2.pdfPerforming Laboratory:[facility] [place] [address]
[2021-05-29] MEDS ORDERED: PROMETHAZINE INJ 25 MG/ML AMP ONE ×2 (21:43→22:53)
[2021-05-29] MEDS ORDERED: NA CHLORIDE 0.9% 500 ML ONE (21:43)
[2021-05-29 21:59] LABS: Absolute Lymphocytes (CBC) 0.2 K/uL (0.7-4.9); Hematocrit 35.9 % (39.6-49.0); Lymphocytes % 2.5 % (15.3-44.8); MPV 9.2 fL (7.6-11.3); RBC Red Blood Cell Count 3.71 M/uL (4.33-5.43)
[2021-05-29 22:13] LABS: Albumin 2.9 g/dL (3.4-5.0); Bilirubin Total 3.5 mg/dL (0.2-1.0); Potassium 4.9 mmol/L (3.5-5.1)
--- NOTE | 2021-05-29 22:28 | EDPHYS ---
Physician Documentation [facility] Name: Tacho Lundy Age: 76 yrs Sex: Male : 1945 Arrival Date: 05/29/2021 Time: 21:12 Bed 20 Private MD: German Martin ED Physician Raymundo Nicholas HPI: 05/29 22:25 This 76 yrs old Unknown Male presents to ER via Wheelchair with complaints of Vomiting, jr8 Decreased Appetite. 22:25 The patient presents to the emergency department with nausea, vomiting, diarrhea. jr8 Onset: The symptoms/episode began/occurred acutely, today. Possible causes: unknown. The symptoms are aggravated by nothing. The symptoms are alleviated by nothing. Associated signs and symptoms: The patient has no apparent associated signs or symptoms. Severity of symptoms: At their worst the symptoms were moderate in the emergency department the symptoms are unchanged. The patient has not experienced similar symptoms in the past. The patient has been recently seen by a physician: with different complaint(s). This is a 76-year-old male patient that presented to the emergency room with complaints of nausea, vomiting, diarrhea that started today. Patient stated he has been unable to keep any of his meds, fluids, or food down. Patient stated that he had a paracentesis 2 or 3 days ago which was fine it had been doing well since then until today. Historical: - Allergies: 21:19 Vancomycin; st1 - PMHx: 21:19 back surgery; Chronic pain; Hypertension; cirrhosis of liver; cirrhosis of liver; st1 Diabetes - IDDM; Hernia; - Immunization history:: Adult Immunizations up to date, Pneumococcal vaccine is up to date, Flu vaccine is up to date. - Social history:: Smoking status: Patient/guardian denies using tobacco, but has a distant history of tobacco abuse, Patient/guardian denies using alcohol, street drugs, IV drugs, tobacco products. ROS: 22:25 Eyes: Negative for injury, pain, redness, and discharge, ENT: Negative for injury, jr8 pain, and discharge, Neck: Negative for injury, pain, and swelling, Cardiovascular: Negative for chest pain, palpitations, and edema, Respiratory: Negative for shortness of breath, cough, wheezing, and pleuritic chest pain, Back: Negative for injury and pain, MS/Extremity: Negative for injury and deformity, Skin: Negative for injury, rash, and discoloration, Neuro: Negative for headache, weakness, numbness, tingling, and seizure. 22:25 Abdomen/GI: Positive for nausea, vomiting, and diarrhea, abdominal cramps. Exam: 22:25 Constitutional: This is a well developed, well nourished patient who is awake, alert, jr8 and in no acute distress. ENT: Nares patent. No nasal discharge, no septal abnormalities noted. Tympanic membranes are normal and external auditory canals are clear. Oropharynx with no redness, swelling, or masses, exudates, or evidence of obstruction, uvula midline. Mucous membranes moist. Neck: Trachea midline, no thyromegaly or masses palpated, and no cervical lymphadenopathy. Supple, full range of motion without nuchal rigidity, or vertebral point tenderness. No Meningismus. Cardiovascular: Regular rate and rhythm with a normal S1 and S2. No gallops, murmurs, or rubs. Normal PMI, no JVD. No pulse deficits. Respiratory: Lungs have equal breath sounds bilaterally, clear to auscultation and percussion. No rales, rhonchi or wheezes noted. No increased work of breathing, no retractions or nasal flaring. Abdomen/GI: Soft, non-tender, with normal bowel sounds. No distension or tympany. No guarding or rebound. No evidence of tenderness throughout. Skin: Warm, dry with normal turgor. Normal color with no rashes, no lesions, and no evidence of cellulitis. MS/ Extremity: Pulses equal, no cyanosis. Neurovascular intact. Full, normal range of motion. Neuro: Awake and alert, GCS 15, oriented to person, place, time, and situation. Cranial nerves II-XII grossly intact. Motor strength 5/5 in all extremities. Sensory grossly intact. Vital Signs: 21:24 Weight 65.77 kg; Height 5 ft. 9 in. (175.26 cm); st1 21:27 BP 147 / 57; Pulse 98; Resp 20; Temp 98.7; Pulse Ox 100% ; mb7 22:00 BP 136 / 60; Pulse 86; Resp 20; Pulse Ox 98% on R/A; vc1 23:00 BP 114 / 98; Pulse 95; Resp 20; Pulse Ox 100% on R/A; vc1 05/30 00:00 BP 97 / 64; Pulse 96; Resp 16; Pulse Ox 98% on R/A; vc1 00:45 BP 94 / 69; Pulse 99; Resp 18; Pulse Ox 98% on R/A; vc1 01:59 BP 125 / 61; Pulse 96; Resp 18; Pulse Ox 100% ; vc1 05/29 21:24 Body Mass Index 21.41 (65.77 kg, 175.26 cm) st1 MDM: 05/29 21:23 Patient medically screened. [facility] 22:20 Data reviewed: vital signs, nurses notes, lab test result(s). Data interpreted: Pulse jr8 oximetry: on room air is 98 %. Interpretation: normal. Counseling: I had a detailed discussion with the patient and/or guardian regarding: the historical points, exam findings, and any diagnostic results supporting the discharge/admit diagnosis, lab results, the need for further work-up and treatment in the hospital. 22:25 ED course: This is a Dr. Martin patient who deferred to hospitalist at this time as he jr8 stated he is going out of town tomorrow. 05/29 21:35 Order name: CBC with Diff; Complete Time: 23:12 [facility] 05/29 21:35 Order name: CMP; Complete Time: 22:14 [facility] 05/29 21:35 Order name: Lipase; Complete Time: 22:14 [facility] 05/29 22:20 Order name: Manual Differential; Complete Time: 23:12 EDMS 05/29 22:30 Order name: COVID-19/FLU A+B (Document "Date of Onset" if Symptomatic); Complete Time: mw2 01:42 05/29 23:13 Order name: Glucose, Ancillary Testing; Complete Time: 23:55 EDMS 05/29 21:35 Order name: IV Saline Lock; Complete Time: 21:47 [facility] 05/29 21:35 Order name: Labs collected and sent; Complete Time: 21:47 [facility] 05/29 23:55 Order name: CT Abd/Pelvis - Without Contrast la1 05/29 22:29 Order name: Accucheck; Complete Time: 23:05 la1 Administered Medications: 21:47 Drug: Promethazine 12.5 mg Route: IVP; Site: right antecubital; vc1 22:30 Follow up: Response: No adverse reaction; Nausea unchanged vc1 21:48 Drug: NS 0.9% 500 ml Route: IV; Rate: bolus; Site: right antecubital; vc1 22:18 Follow up: IV Status: Completed infusion; IV Intake: 500ml vc1 22:57 Drug: NS 0.9% 1000 ml Route: IV; Rate: 75 ml/hr; Site: right antecubital; vc1 05/30 02:07 Follow up: IV Status: Infusion continued upon admission; IV Intake: 300ml vc1 05/29 22:57 Drug: Promethazine 12.5 mg Route: IVP; Site: right antecubital; vc1 05/30 02:07 Follow up: Response: No adverse reaction; Marked relief of symptoms; Nausea is decreasedvc1 05/29 23:05 Drug: morphine 2 mg Route: IVP; Site: right antecubital; vc1 05/30 00:00 Follow up: BP 97 / 64; Pulse 96 bpm; Resp 16 bpm; Pulse Ox 98% RA; Response: No adverse vc1 reaction; Marked relief of symptoms Point of Care Testing: Blood Glucose: 05/29 23:01 Blood Glucose: 272 mg/dL; vc1 Ranges: Critical Glucose Levels:Adult <50 mg/dl or >400 mg/dl <40 mg/dl or >180 mg/dl Disposition: 05/30 06:01 Co-signature as Attending Physician, Raymundo Nicholas MD. rn Disposition Summary: 05/29/21 22:28 Hospitalization Ordered Hospitalization Status: Observation jr8 Provider: Angel Nicholas Location: Telemetry/MedSurg (observation) [facility] Condition: Stable jr8 Problem: new jr8 Symptoms: have improved jr8 Bed/Room Type: Standard [facility] Room Assignment: 220(05/30/21 01:51) Diagnosis - Nausea with vomiting, unspecified jr8 - Diarrhea, unspecified jr8 - Acute kidney failure, unspecified jr8 Forms: - Medication Reconciliation Form jr8 - SBAR form jr8 Signatures: Dispatcher [employer] EDHenrietta Sorenson RN Raymundo Mendez MD MD rn Roszak, Josh, PA PA jr8 Pineda Diaz, SOCIAL STUDIES TEACHER-C SOCIAL STUDIES TEACHER-Gayathri1 Becky Sanchez RN RN st1 Calcote, Ludmila, RN RN vc1 Corrections: (The following items were deleted from the chart) 01:51 05/29 22:28 jr8 mw
--- NOTE | 2021-05-29 22:28 | ER ---
Nurse's Notes [facility] Name: Tacho Lundy Age: 76 yrs Sex: Male : 1945 Arrival Date: 05/29/2021 Time: 21:12 Bed 20 Private MD: German Martin Diagnosis: Nausea with vomiting, unspecified;Diarrhea, unspecified;Acute kidney failure, unspecified Presentation: 05/29 21:18 Chief complaint: Patient states: the patient states he has vomiting, unable to keep st1 anything down, has a fever and lower back pain which all started today. Coronavirus screen: Vaccine status: Patient reports receiving the 2nd dose of the covid vaccine. Moderna. Ebola Screen: No symptoms or risks identified at this time. Risk Assessment: Do you want to hurt yourself or someone else? Patient reports no desire to harm self or others. Onset of symptoms was May 29, 2021. 21:18 Method Of Arrival: Wheelchair st1 21:18 Acuity: CORRY 3 st1 21:36 Initial Sepsis Screen: Does the patient meet any 2 criteria? HR > 90 bpm. No. Patient's vc1 initial sepsis screen is negative. Does the patient have a suspected source of infection? Yes: Other: Abdominal pain. Triage Assessment: 21:19 General: Appears in no apparent distress. uncomfortable, slender, Behavior is calm, st1 cooperative. Pain: Denies pain. Neuro: No deficits noted. Respiratory: No deficits noted. GI: Reports nausea, vomiting. Historical: - Allergies: 21:19 Vancomycin; st1 - PMHx: 21:19 back surgery; Chronic pain; Hypertension; cirrhosis of liver; cirrhosis of liver; st1 Diabetes - IDDM; Hernia; - Immunization history:: Adult Immunizations up to date, Pneumococcal vaccine is up to date, Flu vaccine is up to date. - Social history:: Smoking status: Patient/guardian denies using tobacco, but has a distant history of tobacco abuse, Patient/guardian denies using alcohol, street drugs, IV drugs, tobacco products. Screenin:29 Abuse screen: Denies threats or abuse. Nutritional screening: No deficits noted. st1 Tuberculosis screening: No symptoms or risk factors identified. Fall Risk None identified. No fall in past 12 months (0 pts). Secondary diagnosis (15 points) impaired mobility, IV access (20 points). Ambulatory Aid- Crutches/Cane/Walker (15 pts). Gait- Weak (10 pts.). Mental Status- Oriented to own ability (0 pts). Total Horton Fall Scale indicates High Risk Score (45 or more points). Fall prevention measures have been instituted. Side Rails Up X 2 Placed Close to Nursing Station Frequent Obs/Assessments Occuring Family Present and informed to notify staff if the need to leave the bedside As available patient and family educated on Fall Prevention Program and Strategies. Assessment: 21:30 Reassessment: please see triage note. st1 21:35 General: Appears uncomfortable, ill, Behavior is calm, cooperative, appropriate for vc1 age. Pain: Complains of pain in abdomen Pain does not radiate. Neuro: Level of Consciousness is awake, alert, obeys commands, Oriented to person, place, time, situation, Appropriate for age. GI: Abdomen is round non-distended, Reports bloating, cramping, diarrhea, intolerance of fluids, intolerance of food, nausea, vomiting. 22:12 Reassessment: Patient and/or family updated on plan of care and expected duration. Pain vc1 level reassessed. Patient is alert, oriented x 3, equal unlabored respirations, skin warm/dry/pink. Patient states feeling better. Patient states symptoms have improved. 23:00 Reassessment: Patient and/or family updated on plan of care and expected duration. Pain vc1 level reassessed. Patient is alert, oriented x 3, equal unlabored respirations, skin warm/dry/pink. Patient states feeling better. Patient states symptoms have improved. 05/30 00:00 Reassessment: No changes from previously documented assessment. Patient and/or family vc1 updated on plan of care and expected duration. Pain level reassessed. 01:00 Reassessment: Patient and/or family updated on plan of care and expected duration. Pain vc1 level reassessed. Patient is alert, oriented x 3, equal unlabored respirations, skin warm/dry/pink. 01:58 Reassessment: Patient and/or family updated on plan of care and expected duration. Pain vc1 level reassessed. Patient is alert, oriented x 3, equal unlabored respirations, skin warm/dry/pink. Patient states feeling better. Patient states symptoms have improved. 02:05 Reassessment: Called to give report, spoke with CINDY Duncan. Nurse will call me back for vc1 report. Vital Signs: 05/29 21:24 Weight 65.77 kg; Height 5 ft. 9 in. (175.26 cm); st1 21:27 BP 147 / 57; Pulse 98; Resp 20; Temp 98.7; Pulse Ox 100% ; mb7 22:00 BP 136 / 60; Pulse 86; Resp 20; Pulse Ox 98% on R/A; vc1 23:00 BP 114 / 98; Pulse 95; Resp 20; Pulse Ox 100% on R/A; vc1 05/30 00:00 BP 97 / 64; Pulse 96; Resp 16; Pulse Ox 98% on R/A; vc1 00:45 BP 94 / 69; Pulse 99; Resp 18; Pulse Ox 98% on R/A; vc1 01:59 BP 125 / 61; Pulse 96; Resp 18; Pulse Ox 100% ; vc1 05/29 21:24 Body Mass Index 21.41 (65.77 kg, 175.26 cm) st1 ED Course: 05/29 21:12 Patient arrived in ED. es 21:13 German Martin MD is Private Physician. es 21:19 Triage completed. st1 21:19 Arm band placed on right wrist. st1 21:23 Lalo Finch PA is PHCP. jr8 21:23 Raymundo Nicholas MD is Attending Physician. jr8 21:24 Ludmila Navarro RN is Primary Nurse. vc1 21:28 Placed in gown. Bed in low position. Call light in reach. Side rails up X 1. Door mb7 closed. Noise minimized. Warm blanket given. 21:29 Pulse ox on. NIBP on. st1 21:45 Inserted saline lock: 20 gauge in right antecubital area, using aseptic technique. mb7 21:47 CBC with Diff Sent. mb7 21:47 CMP Sent. mb7 21:47 Lipase Sent. mb7 22:28 Angel Nicholas MD is Hospitalizing Provider. jr8 22:45 COVID swab sent to lab. mb7 22:48 COVID-19/FLU A+B (Document "Date of Onset" if Symptomatic) Sent. vc1 05/30 02:05 No provider procedures requiring assistance completed. Patient admitted, IV remains in vc1 place. Administered Medications: 05/29 21:47 Drug: Promethazine 12.5 mg Route: IVP; Site: right antecubital; vc1 22:30 Follow up: Response: No adverse reaction; Nausea unchanged vc1 21:48 Drug: NS 0.9% 500 ml Route: IV; Rate: bolus; Site: right antecubital; vc1 22:18 Follow up: IV Status: Completed infusion; IV Intake: 500ml vc1 22:57 Drug: NS 0.9% 1000 ml Route: IV; Rate: 75 ml/hr; Site: right antecubital; vc1 05/30 02:07 Follow up: IV Status: Infusion continued upon admission; IV Intake: 300ml vc1 05/29 22:57 Drug: Promethazine 12.5 mg Route: IVP; Site: right antecubital; vc1 05/30 02:07 Follow up: Response: No adverse reaction; Marked relief of symptoms; Nausea is decreasedvc1 05/29 23:05 Drug: morphine 2 mg Route: IVP; Site: right antecubital; vc1 05/30 00:00 Follow up: BP 97 / 64; Pulse 96 bpm; Resp 16 bpm; Pulse Ox 98% RA; Response: No adverse vc1 reaction; Marked relief of symptoms Point of Care Testing: Blood Glucose: 05/29 23:01 Blood Glucose: 272 mg/dL; vc1 Ranges: Intake: 22:18 IV: 500ml; Total: 500ml. vc1 05/30 02:07 IV: 300ml; Total: 800ml. vc1 Outcome: 05/29 22:28 Decision to Hospitalize by Provider. jrArchana 05/30 02:06 Condition: good vc1 Instructed on the need for admit. 02:20 Admitted to Med/surg accompanied by tech, via stretcher, room 220, with chart, Report vc1 called to CINDY Hui 02:25 Patient left the ED. vc1 Signatures: Juli Posada Josh, PA PA jr8 Francine Wright 7 Becky Sanchez RN RN st1 Ludmila Navarro RN RN vc1 Corrections: (The following items were deleted from the chart) 05/29 21:30 21:18 Chief complaint: Patient states: the patient has vomiting, un able to keep st1 anything down, fever and lower back pain all started today st1
--- NOTE | 2021-05-29 22:50 | P.HP ---
Certification for Inpatient Patient admitted to: Observation With expected LOS: <2 Midnights Patient will require the following post-hospital care: None Practitioner: I am a practitioner with admitting privileges, knowledge of patient current condition, hospital course, and medical plan of care. Services: Services provided to patient in accordance with Admission requirements found in Title 42 Section 412.3 of the Code of Federal Regulations Patient History Date of Service: 05/29/21 Reason for admission: RACHEL History of Present Illness: 76-year-old male with history of cirrhosis of liver secondary to alcohol abuse, diabetes mellitus type 2insulin-dependent, CKD 3 presents emergency room for nausea/vomiting, dehydration. Patient reports he had a paracentesis couple days ago with his GI doctor in [place] had some abdominal pain the next day which has improved. Today around noon he began having some nausea/vomiting and a couple episodes of diarrhea. Patient was evaluated emergency department his labs were significant for mild worsening of renal function his baseline creatinine appears to be around 1.5 currently 2.26 glucose 307. Patient with some improvement in his nausea/vomiting denies abdominal pain at this time. ED provider wishes to admit under observation for dehydration, acute kidney injury. Allergies vancomycin Allergy (Verified 05/27/18 10:36) Itching/Hives/Rash Home Medications: Ezetimibe [Zetia*] 10 mg PO DAILY 05/23/18 Magnesium Oxide [Mag 0X*] 400 mg PO BID 05/23/18 Furosemide [Lasix*] 20 mg PO DAILY 06/26/18 Simvastatin 40 mg PO BEDTIME 06/26/18 Aspirin 81 mg PO DAILY 06/09/19 Carvedilol [Coreg] 12.5 mg PO BID 06/09/19 Glucerna Shake [Glucerna*] 237 ml PO TID #90 can 06/11/19 Amlodipine Besylate [Norvasc] 10 mg PO DAILY #30 tablet 08/30/19 Folic Acid 1 mg PO DAILY #90 tablet 12/01/20 Insulin Detemir [Levemir] 5 units SQ BEDTIME #1 bottle 12/01/20 Ondansetron [Zofran (Odt)*] 4 mg PO Q6H PRN #10 tab 12/01/20 Pantoprazole Sodium [Protonix] 40 mg PO DAILY #30 tablet. 12/01/20 Sucralfate [Carafate*] 1 gm PO ACHS #90 tab 12/01/20 Thiamine HCl [Vitamin B-1*] 100 mg PO DAILY #90 tablet 12/01/20 - Past Medical/Surgical History Diabetic: Yes -: CAD s/p Stent/ CABG -: DM -: HTN -: Cirrhosis -: CAD -: Alcoholic cirrhosis of the liver -: CKD 3 -: CABG -: Laminectomy -: Back sx -: Skin cancer sx -: hemorrhoidectomy Psychosocial/ Personal History: Patient lives at home with his debilitated - Family History Father -: Heart disease Mother -: Heart disease Notes: [place] - Social History Alcohol use: No CD- Drugs: No Caffeine use: Yes Place of Residence: Home Review of Systems 10-point ROS is otherwise unremarkable Gastrointestinal: Nausea, Vomiting, Diarrhea Physical Examination - Physical Exam General: Alert, In no apparent distress, Oriented x3 HEENT: Atraumatic, PERRLA, Mucous membr. moist/pink, EOMI, Sclerae nonicteric Neck: Supple, 2+ carotid pulse no bruit, No LAD, Without JVD or thyroid abnormality Respiratory: Clear to auscultation bilaterally, Normal air movement Cardiovascular: Regular rate/rhythm, Normal S1 S2 Capillary refill: <2 Seconds Gastrointestinal: Normal bowel sounds, Soft and benign, No tenderness Musculoskeletal: No tenderness Integumentary: No rashes Neurological: Normal gait, Normal speech, Normal strength at 5/5 x4 extr, Normal tone, Normal affect Lymphatics: No axilla or inguinal lymphadenopathy - Studies Laboratory Data (last 24 hrs) 05/29/21 21:40: Sodium 135 L, Potassium 4.9, BUN 47 H, Creatinine 2.26 H, Glucose 307 H, Total Bilirubin 3.5 H, AST 58 H, ALT 27, Alkaline Phosphatase 314 H, Lipase 52 L 05/29/21 21:40: WBC 7.9, Hgb 12.1 L, Hct 35.9 L, Plt Count 138 L Assessment and Plan - Plan Assessment: Nausea/vomiting RACHEL superimposed on CKD 3 Diabetes mellitus type 2insulin-dependent with hyperglycemia Alcoholic cirrhosis of the liver CAD status post CABG Hypertension Hyperlipidemia thrombocytopenia Plan: Nausea/vomiting: Patient without any abdominal pain or tenderness on exam at this time, will continue gentle hydration.the evening, n.p.o. aside from sips of water/ice chips advance as tolerated. RACHEL superimposed on CKD 3: Continue gentle hydration throughout this evening, obtain renal ultrasound, nephrology consulted. Diabetes mellitus type 2insulin-dependent with hyperglycemia: ACH S Accu-Chek, sliding scale insulin. Alcoholic cirrhosis of the liver: Stable, follows with GI specialist in [place]. Had paracentesis a few days ago. CAD status post CABG: Obtaining continue home medications, monitor on telemetry. Hypertension: Obtain and continue medication Hyperlipidemia: Obtain and continue medication thrombocytopenia: Related to cirrhosis, hold DVT prophylaxis for platelets less than 100. DVT PPX: Heparin Code status: Full Discharge Plan: Home Plan to discharge in: 24 Hours - Advance Directives Does patient have a Living Will: No Does patient have a Durable POA for Healthcare: Yes - Code Status/Comfort Care Code Status Assessed: Yes (Full code) Critical Care: No Time Spent Managing Pts Care (In Minutes): 55
[2021-05-29] MEDS ORDERED: NA CHLORIDE 0.9% 1,000 ML ONE (22:54)
[2021-05-29] MEDS ORDERED: MORPHINE 2 MG/ML SYR ONE (23:02)
[2021-05-29 23:09] LABS: Blood Morphology Comment NOT SEEN (NOT SEEN); Platelet Estimate ADEQ
[2021-05-30 01:41] LABS: SARS-COV-2 RT PCR NEGATIVE (NEGATIVE)
[2021-05-30] MEDS ORDERED: ONDANSETRON 4 MG/2 ML VIAL IV PRN (02:39)
[2021-05-30 03:08] VITALS: BMI 20.7
[2021-05-30 03:15] VITALS: O2SAT 100
[2021-05-30] MEDS: NA CHLORIDE 0.9% 1,000 ML IV SCH ×2 (03:20→09:02)
[2021-05-30 04:43] LABS: Absolute Lymphocytes (CBC) 0.2 K/uL (0.7-4.9); Hematocrit 28.8 % (39.6-49.0); Lymphocytes % 5.5 % (15.3-44.8); RBC Red Blood Cell Count 2.93 M/uL (4.33-5.43)
[2021-05-30 05:13] LABS: Albumin 2.4 g/dL (3.4-5.0); Bilirubin Total 2.2 mg/dL (0.2-1.0); Potassium 4.8 mmol/L (3.5-5.1); Protein, Total 6.3 g/dL (6.4-8.2)
--- NOTE | 2021-05-30 06:40 | P.PN ---
Date of Service: 05/30/21
--- NOTE | 2021-05-30 07:10 | RAD REPORT ---
EXAM DESCRIPTION: US - Renal Ultrasound-Complete - 05/30/2021 5:56 am CLINICAL HISTORY: ryan/ckd COMPARISON: Abdomen Pelvis Wo Contrast dated 05/30/2021 FINDINGS: Both kidneys are normal in size, shape and echotexture. The right kidney measures 10.4 cm. No hydronephrosis, focal mass or perinephric fluid. The left kidney measures 9.7 cm. No hydronephrosis, focal mass or perinephric fluid. The urinary bladder is incompletely distended without gross abnormality seen. Large volume of ascites IMPRESSION: No hydronephrosis. Large volume of ascites.
[2021-05-30 07:20] LABS: Hematocrit 28.7 % (39.6-49.0)
[2021-05-30] MEDS: INSULIN -REGULAR HUMAN 50 UNIT/0.5 ML ML SQ SCH ×3 (07:30→12:53)
[2021-05-30] MEDS ORDERED: PNEUMOCOCCAL VACCINE 0.5 ML IMVAC ONE (08:00)
--- NOTE | 2021-05-30 08:00 | P.CNS ---
Date of Consult: 05/30/21 Reason for Consult: RACHEL Requesting Physician: Angel Nicholas Chief Complaint: RACHEL History of Present Illness: 76-year-old male with history of cirrhosis of liver secondary to alcohol abuse, diabetes mellitus type 2insulin-dependent, CKD 3 presents emergency room for nausea/vomiting, dehydration. Patient reports he had a paracentesis couple days ago with his GI doctor in [place] had some abdominal pain the next day which has improved. Today around noon he began having some nausea/vomiting and a couple episodes of diarrhea. Patient was evaluated emergency department his labs were significant for mild worsening of renal function his baseline creatinine appears to be around 1.5 currently 2.26 glucose 307. Patient with some improvement in his nausea/vomiting denies abdominal pain at this time. ED provider wishes to admit under observation for dehydration, acute kidney injury. 22:25 This 76 yrs old Unknown Male presents to ER via Wheelchair with complaints of Vomiting, jr8 Decreased Appetite. 22:25 The patient presents to the emergency department with nausea, vomiting, diarrhea. jr8 Onset: The symptoms/episode began/occurred acutely, today. Possible causes: unknown. The symptoms are aggravated by nothing. The symptoms are alleviated by nothing. Associated signs and symptoms: The patient has no apparent associated signs or symptoms. Severity of symptoms: At their worst the symptoms were moderate in the emergency department the symptoms are unchanged. The patient has not experienced similar symptoms in the past. The patient has been recently seen by a physician: with different complaint(s). This is a 76-year-old male patient that presented to the emergency room with complaints of nausea, vomiting, diarrhea that started today. Patient stated he has been unable to keep any of his meds, fluids, or food down. Patient stated that he had a paracentesis 2 or 3 days ago which was fine it had been doing well since then until today Allergies vancomycin Allergy (Verified 05/27/18 10:36) Itching/Hives/Rash Home medications list reviewed: Yes Home Medications: Ezetimibe [Zetia*] 10 mg PO DAILY 05/23/18 Magnesium Oxide [Mag 0X*] 400 mg PO BID 05/23/18 Furosemide [Lasix*] 20 mg PO DAILY 06/26/18 Simvastatin 40 mg PO BEDTIME 06/26/18 Aspirin 81 mg PO DAILY 06/09/19 Carvedilol [Coreg] 12.5 mg PO BID 06/09/19 Glucerna Shake [Glucerna*] 237 ml PO TID #90 can 06/11/19 Amlodipine Besylate [Norvasc] 10 mg PO DAILY #30 tablet 08/30/19 Folic Acid 1 mg PO DAILY #90 tablet 12/01/20 Insulin Detemir [Levemir] 5 units SQ BEDTIME #1 bottle 12/01/20 Ondansetron [Zofran (Odt)*] 4 mg PO Q6H PRN #10 tab 12/01/20 Pantoprazole Sodium [Protonix] 40 mg PO DAILY #30 tablet. 12/01/20 Sucralfate [Carafate*] 1 gm PO ACHS #90 tab 12/01/20 Thiamine HCl [Vitamin B-1*] 100 mg PO DAILY #90 tablet 12/01/20 Ondansetron [Zofran] 4 mg PO Q6H PRN #10 tab 05/30/21 - Past Medical/Surgical History Diabetic: Yes -: CAD s/p Stent/ CABG -: DM -: HTN -: Cirrhosis -: CAD -: Alcoholic cirrhosis of the liver -: CKD 3/ Dr. Frazier -: CABG -: Laminectomy -: Back sx -: Skin cancer sx -: hemorrhoidectomy Psychosocial/ Personal History: Patient lives at home with his debilitated - Family History Father Medical History: Heart disease Mother Medical History: Heart disease Notes: [place] - Social History Smoking Status: Former smoker Alcohol use: No CD- Drugs: No Caffeine use: Yes Place of Residence: Home Review of Systems 10-point ROS is otherwise unremarkable General: Weakness, Malaise Gastrointestinal: Nausea Physical Examination Temp Pulse Resp BP Pulse Ox 98.7 F 96 H 18 125/61 05/29/21 21:27 05/30/21 01:59 05/30/21 01:59 05/30/21 01:59 General: In no apparent distress, Oriented x3, Cooperative HEENT: Atraumatic Neck: Supple Respiratory: Clear to auscultation bilaterally Cardiovascular: No edema, Regular rate/rhythm Gastrointestinal: Soft and benign, Non-distended Musculoskeletal: No clubbing, No contractures Integumentary: No rashes, No cyanosis Laboratory Data (last 24 hrs) 05/29/21 21:40: Sodium 135 L, Potassium 4.9, BUN 47 H, Creatinine 2.26 H, Glucose 307 H, Total Bilirubin 3.5 H, AST 58 H, ALT 27, Alkaline Phosphatase 314 H, Lipase 52 L 05/29/21 21:40: WBC 7.9, Hgb 12.1 L, Hct 35.9 L, Plt Count 138 L Imagings Data: EXAM DESCRIPTION: US - Renal Ultrasound-Complete - 05/30/2021 5:56 am CLINICAL HISTORY: rachel/ckd COMPARISON: Abdomen Pelvis Wo Contrast dated 05/30/2021 FINDINGS: Both kidneys are normal in size, shape and echotexture. The right kidney measures 10.4 cm. No hydronephrosis, focal mass or perinephric fluid. The left kidney measures 9.7 cm. No hydronephrosis, focal mass or perinephric fluid. The urinary bladder is incompletely distended without gross abnormality seen. Large volume of ascites IMPRESSION: No hydronephrosis. Large volume of ascites. Conclusions/Impression: RACHEL likely due to hypovolemia CKD III -No NSAIDs -Continue gentle IVF -Hold furosemide -Renal US reviewed Hyponatremia -Continue IVF Acidosis -Continue IVF HTN with CKD -Restart Coreg DM II with CKD -RISS Moderate malnutrition -Advance nutrition as tolerated Anemia in chronic illness -Monitor H&H Thank you kindly for the consultation.
[2021-05-30] MEDS ORDERED: HEPARIN 5000 UNIT/ML 1 ML VIAL SQ SCH (09:00)
[2021-05-30] MEDS ORDERED: HYDROCODONE/APAP 7.5/325 MG TAB PO PRN (10:22)
--- NOTE | 2021-05-30 15:04 | P.DS ---
Admission Date: 05/29/21 Discharge Date: 05/30/21 Disposition: ROUTINE DISCHARGE Discharge Condition: GOOD Reason for Admission: RACHEL Consultations: Nephrology - Dr. Frazier Procedures: Problem List Nausea/vomiting RACHEL superimposed on CKD 3, secondary to prerenal state / hypovolemia Diabetes mellitus type 2insulin-dependent with hyperglycemia Alcoholic cirrhosis of the liver CAD status post CABG Hypertension Hyperlipidemia thrombocytopenia Brief History of Present Illness: 76-year-old male with history of cirrhosis of liver secondary to alcohol abuse, diabetes mellitus type 2insulin-dependent, CKD 3 presents emergency room for nausea/vomiting, dehydration. Patient reports he had a paracentesis couple days ago with his GI doctor in [place] had some abdominal pain the next day which has improved. Today around noon he began having some nausea/vomiting and a couple episodes of diarrhea. Patient was evaluated emergency department his labs were significant for mild worsening of renal function his baseline creatinine appears to be around 1.5 currently 2.26 glucose 307. Patient with some improvement in his nausea/vomiting denies abdominal pain at this time. ED provider wishes to admit under observation for dehydration, acute kidney injury. Hospital Course: Patient presented with nausea and vomiting. He was found to have acute renal failure secondary to dehydration. He was treated with anti-emetics, IV fluids, and bowel rest. His diet was advanced to full liquid diet which he tolerated well. He reported feeling much better and wanting to be discharged home. He did not have a leukocytosis and remained afebrile during his hospitalization. He did not have any abdominal tenderness on exam. He had mild elevations of his LFTs and total bilirubin, which improved as well. He did not have any diarrhea / loose stools during the hospitalization. Do not suspect SBP or c. diff at this time. He did not receive antibiotics. Patient is discharged home, to resume home medications as prescribed and sent with a prescription for nausea. Continue with liquid diet and slowly advance diet as tolerated over next few days. Follow up with GI in 1-2 weeks. Vital Signs/Physical Exam: Temp Pulse Resp BP Pulse Ox 99.2 F 88 16 132/50 L 100 05/30/21 12:00 05/30/21 12:00 05/30/21 12:00 05/30/21 12:00 05/30/21 12:00 General: Alert, In no apparent distress, Oriented x3 HEENT: Sclerae nonicteric Respiratory: Clear to auscultation bilaterally, Normal air movement Cardiovascular: No edema, Regular rate/rhythm Gastrointestinal: Soft and benign, Non-distended, No tenderness Neurological: Normal speech, Normal affect Laboratory Data at Discharge: WBC 4.5 K/uL (4.3-10.9) D 05/30/21 04:06 Hgb 9.9 g/dL (13.6-17.9) L 05/30/21 07:05 Hct 28.7 % (39.6-49.0) L 05/30/21 07:05 Plt Count 101 K/uL (152-406) L D 05/30/21 04:06 Sodium 135 mmol/L (136-145) L 05/30/21 04:06 Potassium 4.8 mmol/L (3.5-5.1) 05/30/21 04:06 BUN 49 mg/dL (7-18) H 05/30/21 04:06 Creatinine 1.90 mg/dL (0.55-1.3) H 05/30/21 04:06 Glucose 283 mg/dL (74-106) H 05/30/21 04:06 Total Bilirubin 2.2 mg/dL (0.2-1.0) H 05/30/21 04:06 AST 52 U/L (15-37) H 05/30/21 04:06 ALT 23 U/L (12-78) 05/30/21 04:06 Alkaline Phosphatase 232 U/L (45-117) H 05/30/21 04:06 Lipase 52 U/L (73-393) L 05/29/21 21:40 Home Medications: Ezetimibe [Zetia*] 10 mg PO DAILY 05/23/18 Magnesium Oxide [Mag 0X*] 400 mg PO BID 05/23/18 Furosemide [Lasix*] 20 mg PO DAILY 06/26/18 Simvastatin 40 mg PO BEDTIME 06/26/18 Aspirin 81 mg PO DAILY 06/09/19 Carvedilol [Coreg] 12.5 mg PO BID 06/09/19 Glucerna Shake [Glucerna*] 237 ml PO TID #90 can 06/11/19 Amlodipine Besylate [Norvasc] 10 mg PO DAILY #30 tablet 08/30/19 Folic Acid 1 mg PO DAILY #90 tablet 12/01/20 Insulin Detemir [Levemir] 5 units SQ BEDTIME #1 bottle 12/01/20 Ondansetron [Zofran (Odt)*] 4 mg PO Q6H PRN #10 tab 12/01/20 Pantoprazole Sodium [Protonix] 40 mg PO DAILY #30 tablet. 12/01/20 Sucralfate [Carafate*] 1 gm PO ACHS #90 tab 12/01/20 Thiamine HCl [Vitamin B-1*] 100 mg PO DAILY #90 tablet 12/01/20 Ondansetron [Zofran] 4 mg PO Q6H PRN #10 tab 05/30/21 New Medications: Ondansetron [Zofran] 4 mg PO Q6H PRN #10 tab PRN Reason: Nausea / Vomiting Diet: Toyah (liquids, advanced) Followup: Stefano Frazier DO [ACTIVE - CAN ADMIT] - 1-2 Weeks (nephrology: call for an apointment) German Martin MD [Primary Care Provider] - 1 Week (Follow up with MD call to make an appointment ) Time spent managing pt's care (in minutes): 40
[2021-05-30 16:29] VITALS: BP 115/52; TEMP 99.3
--- NOTE | 2021-05-30 18:21 | RAD REPORT ---
EXAM DESCRIPTION: CT - Abdomen Pelvis Wo Contrast - 05/30/2021 6:45 am CLINICAL HISTORY: 76 years Male, intractable vomiting TECHNIQUE: Helical CT axial images are obtained from the lung bases to the pubic symphysis without I V contrast. No oral contrast was administered. Multiplanar reconstruction. This exam was performed ac cording to our departmental dose-optimization program, which includes automated exposure control, adj ustment of the mA and/or kV according to patient size and/or use of iterative reconstruction techniqu e. COMPARISON: 11/28/2020 FINDINGS: LUNG BASES: Small to moderate size right pleural effusion. Clear left lung base. LIVER: Small cirrhotic liver. Homogenous attenuation. No suspicious masses on this nonenhanced exam . HEPATOBILIARY: Distended gallbladder with a small calcified gallstone identified. No intra- or extr ahepatic ductal dilatation. SPLEEN: Moderate splenomegaly measuring up to 16.5 cm. PANCREAS: Severe fatty atrophic changes. ADRENAL GLANDS: Normal size. No adrenal masses. KIDNEYS: No obstructing calculi or hydronephrosis bilaterally. No nephrolithiasis. No significant c ysts are present. BOWEL AND MESENTERY: Large volume ascites. Large hiatal hernia containing half of the stomach. Additi onally there is free fluid within the hiatal hernia. No small or large bowel dilatation. No significa nt colonic diverticulosis. The appendix is not identified. No abnormal mesenteric lymphadenopathy. No pneumoperitoneum. RETROPERITONEUM: Normal caliber abdominal aorta without aneurysm. Severe ASVD. No abnormal retroper itoneal lymphadenopathy. PELVIS: Urinary bladder is unremarkable. Mild prostatomegaly. ABDOMINAL WALL: Moderate size fluid-containing right inguinal hernia. BONES: Status post anterior and posterior lumbar fusion L2-L4 with laminectomy defects. No suspicio us osseous lytic or blastic lesions seen. IMPRESSION: 1. Small cirrhotic liver with sequela of portal hypertension including splenomegaly an d large volume ascites. 2. Large hiatal hernia containing half of the stomach. 3. Small to moderate size right pleural effusion. 4. Cholelithiasis. 5. Moderate size fluid-containing right inguinal hernia. 6. Mild prostatomegaly. Electronically signed by: Rinku Salomon MD 05/30/2021 12:47 AM CDT Due to temporary technical issues with the PACS/Fluency reporting system, reports are being signed by the in house radiologists without review as a courtesy to insure prompt reporting. The interpreting radiologist is fully responsible for the content of the report.
== END 2021-05-30 17:30 | disposition home or self-care (01) ==
LOC: ER 21:08 → ERHOLD 22:36 → 2ND 05-30 02:07
PROVIDERS: ADMIT Hospitalist; ATTEND Hospitalist
DX: N17.9 Acute kidney failure, unspecified (principal); R11.2 Nausea with vomiting, unspecified; E86.0 Dehydration; I12.9 Hypertensive chronic kidney disease with stage 1 through stage 4 chronic kidney disease, or unspecified chronic kidney disease; E11.22 Type 2 diabetes mellitus with diabetic chronic kidney disease; E11.65 Type 2 diabetes mellitus with hyperglycemia; N18.30 Chronic kidney disease, stage 3 unspecified; K70.30 Alcoholic cirrhosis of liver without ascites; E78.5 Hyperlipidemia, unspecified; I25.10 Atherosclerotic heart disease of native coronary artery without angina pectoris; D69.6 Thrombocytopenia, unspecified; E87.1 Hypo-osmolality and hyponatremia; D63.8 Anemia in other chronic diseases classified elsewhere; Z95.5 Presence of coronary angioplasty implant and graft; Z95.1 Presence of aortocoronary bypass graft; Z20.822 Contact with and (suspected) exposure to COVID-19
CPT/HCPCS: 0240U; 36415; 74176; 76770; 80053; 82550; 82947; 83690; 85014; 85018; 85025; 96361; 96374; 96375; 99251; 99285; G0378; J1644; J2270; J2405; J2550; J7030; J7040

== ENCOUNTER 2021-06-16 22:17 | Inpatient (IN) | payer OTHER, MEDICARE ==
[2021-06-16] MEDS ORDERED: NA CHLORIDE 0.9% 500 ML ONE (23:27)
[2021-06-17] MEDS ORDERED: ONDANSETRON 4 MG/2 ML VIAL ONE (00:23)
[2021-06-17] MEDS ORDERED: NA CHLORIDE 0.9% 500 ML ONE ×2 (00:24→02:04)
--- OUTSIDE RECORDS SUMMARY | 2021-06-17 01:16 | XMS REPORT | Continuity of Care Document ---
:1945 Author Organization [facility] t Address [address] [place] [address] Care Team Providers Name Role Phone Pcp, Does Not Have A Primary Care Physician TRESA Attending Clinician Unavailable Anatoliy KENYON Attending Clinician Unavailable Anatoliy Kenyon MD Attending Clinician CHELSEA Attending Clinician Unavailable KRISSY Attending Clinician Unavailable Jim HILTON Attending Clinician Unavailable Breezy GUEVARA [...] Clinician Unavailable Doris GUEVARA I Attending Clinician CHELSEA Admitting Clinician Unavailable RONDA Admitting Clinician Unavailable CARL Admitting Clinician Unavailable Payers Payer Name Policy Type Policy Number Effective Date Expiration Date S alona MEDICARE PART A \T\ [id number] 2008 B 00:00:00 [facility] [id number] 1993 MEDICARE SUPPLEMENT 00:00:00 Problems Condition Condition Condition Status Onset Resolution [...] l Ascites Ascites Disease Active Methodi 07-31 00:00: Hospita 00 l Pleural Pleural Disease [...] Disease Active Metho di phosphatas phosphatas 09-11 st e e 00:00: Hospita elevation elevation 00 l 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 7-11 st transferas transferas 00:00: Ho spita e (GGT) e (GGT) 00 l PNA PNA Disease Active Methodi (pneumonia (pneumonia 09-09 ) ) 00:00: Hospita 00 l COVID-19 COVID-19 Disease Active Metho di virus virus 09-09 st detected detected 00:00: Hospit a 00 l [...] HTN Disease Active 2017-03 [facility] (hypertens (hypertens 228 st ion) ion) 00:00: Hospita 00 l 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 Metho di abscess abscess [address] st 00:00: Hospita 00 l Leg Leg Disease Active 2017-03 [facility] weakness, weakness, 19 st bilateral bilateral 00:00: Hosp mahesh 00 l Essential Essential Disease Active [place] moi hypertensi hypertensi 08-27 [facility] l[facility] on on 00:00: of 00 Medicin e Screening Screening Disease Active [place] moi for STD for STD 08-27 College (sexually (sexually 00:00: of transmitte transmitte 00 Me dicin d disease) d disease) e 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-03 [facility] hypogonadi hypogonadi 03-17 Co llege sm sm 00:00: of 00 Medicin e Special Special Disease Active 2016-03 [facility] screening screening 03-17 [place] for for 00:00: of malignant [...] 00 l Hypogonadi Hypogonadi Disease Active [facility] sm male sm male 05-08 [facility] 00:00: of 00 Medicin e BPH BPH Disease Active 2012-03 [facility] (benign (benign 03-04 [place] prostatic prostatic 00:00: of hypertroph hypertroph 00 Me dicin y) with y) with e urinary urinary obstructio obstructio n n Erectile Erectile Disease Active 2012-03 [facility] r dysfunctio dysfunctio 03-04 Co llege n n 00:00: of 00 Medicin e History of History of Disease Active 2012-03 U nivers nonmelanom nonmelanom 0-21 it y of a skin a skin 00:00: [place] cancer cancer Medical [facility] Allergies, Adverse Reactions, Alerts Allergy [...] DA Active U 2017-03 [facility] Allergie 0-15 [place] [facility] 00:00: [facility] 00 dic Hospita l No Known DA Active U [facility] Allergie 8-29 [place] [facility] 00:00: Orthope 00 dic Hospita l NO KNOWN Drug Active Univers ALLERGIE Class ity of S [facility] Family History Family Member Diagnosis Comments Start Date Stop Date Source Natural father Heart disease [facility] Natural mother Heart disease [facility] Social History Social Habit Start Date Stop Date Quantity Comments Source Exposure to Not sure University SARS-CoV-2 (event) [facility] History of tobacco Cigarette Smoker [facility] Medicine History SDOH [facility] Alcohol Std Drinks Hospit al History SDNC [facility] Alcohol Binge Hospital Alcohol intake 2021-03-27 2021-03-27 .43 /d [facility] 00:00:00 00:00:00 Hospital Cigarettes smoked 2019-09-10 2019-09-10 [facility] current (pack per 00:00:00 00:00:00 Hospita l day) - Reported Cigarette 2019-09-10 2019-09-10 [facility] pack-years 00:00:00 00:00:00 Hospital Tobacco use and 2019-09-10 2019-09-10 Smokeless [facility] exposure 00:00:00 00:00:00 tobacco non-user Hospital History SDOH 2019-09-10 2019-09-10 3 [facility] Alcohol Frequency 00:00:00 00:00:00 Hospita l Alcohol Comment 2018-01-31 2018-01-31 3 week [facility] 00:00:00 00:00:00 Hospital Sex Assigned At [address] [facility] - 00:00:00 00[facility]00[facility]00 [facility] Smoking Status Start Date Stop Date Source Ex-smoker 2019-09-10 00:00:00 2019-09-10 00:00:00 [facility] Never smoker [facility] Medical Branch Medications Ordered Filled Start Stop Current Ordering Indication Dosage Frequency Signature Comments Components Source Medication Medication Date Date Medication? Clinician (SIG) Name Name fluorouraci Yes Apply Univers L (EFUDEX) 1-31 daily to L ity of 5 % cream 00:00: ear, face Alberto as 00 and scalp Medical as Branch tolerated for 3 weeks. fluorouraci Yes Apply Univers L (EFUDEX) 1-31 daily [...] times a l coated day. tablet ferrous 0 Yes 325mg QD Take 325 Metho di sulfate 325 1-[address] (65 FE) MG 13:02: mouth Hospit a tablet 10 daily with l breakfast. HYDROcodone 0 Yes [id number] 1{tbl} Q4H Take 1 M ethodi -acetaminop 1-[address] hen (NORCO) 13:02: mouth Hospi ta 7.5-325 mg 10 every 4 l per tablet (four) hours as needed for mild pain or moderate pain .acute pain. (per Prescripti on Drug Monitoring Program, last filled 01/09/2021 , quantity: 56, day supply: 28) insulin 2021-0 Yes Q.[id number] Inject Me thodi ASPART 1-[id number] (NovoLOG) 13:02: 3D skin 3 Hospit a 100 unit/mL 10 (three) l injection times a day with meals. Use per sliding scale bimatoprost 2021-0 Yes 1[drp] QD Administer Methodi (LUMIGAN) 1-[address] 0.01 % 13:02: both eyes Hospit a ophthalmic 10 nightly. l drops carvediloL 2021-0 Yes 25mg QD Take 25 mg M ethodi (COREG) 25 1-[address] MG tablet 13:02: daily. Hospit a 10 l insulin 2021-0 Yes QD Inject Methodi detemir -[address] U-100 13:02: skin Hospita (LEVEMIR) 10 nightly. l 100 unit/mL Use per injection sliding scale hydrOXYzine 2021-0 Yes 25mg Q24H Take 25 mg Methodi (ATARAX) 25 1-[address] MG tablet 13:02: daily as Hosp mahesh 10 needed for l itching. lubiproston 2021-0 Yes 8ug Q.5D Take 8 mcg Methodi e (AMITIZA) 1-[address] 8 MCG 13:02: (two) Hospita capsule 10 times a l day as needed for constipati on. metoclopram 2021-0 Yes 5mg Q.5D Take 5 mg M ethodi gerald 1-[address] (REGLAN) 5 13:02: (two) Hospit a MG tablet 10 times a l day as needed (Nausea and Vomiting). ondansetron 2021-0 Yes 4mg Q8H Take 4 mg M ethodi ODT 1-[address] (ZOFRAN-ODT 13:02: every 8 Hos cat ) 4 MG 10 (eight) l disintegrat hours as ing tablet needed for nausea or vomiting. pantoprazol 2021-0 Yes 40mg Q.5D Take 40 mg Methodi e 1-[address] (PROTONIX) 13:02: (two) Hospit a 40 MG EC 10 times a l tablet day. sertraline 2021-0 Yes 100mg QD Take 100 Me thodi (ZOLOFT) 1-[address] 100 MG 13:02: mouth Hospita tablet 10 daily. l bisacodyL 2022-0 2022- Yes 5mg Q.5D Take 1 Metho di (Dulcolax, 03-27-24 tablet (5 st bisacodyl,) 00:00: 05:59 mg total) Hospita 5 mg EC 00 :00 by mouth 2 l tablet (two) times a day for 30 days. furosemide 2020-03 No 80mg QD Take 2 Meth elvia (Lasix) 40 04-20- tablets st mg tablet 00:00: 05:59 (80 mg Hospi ta 00 :00 total) by l mouth daily for 30 days. spironolact 2020-03 No 50mg QD Take 1 Met hodi one 04-20 tablet (50 st (Aldactone) 00:00: 05:59 mg [...] 100mg QD Take 1 Me thodi (Diflucan) 0-[address] 100 MG 00:00: 04:59 (100 mg Hospita tablet 00 :00 total) by l mouth daily for 10 days. hydrOXYzine 2020- No 12.5mg Q8H Take 0.5 Methodi (ATARAX) 25 9-10 10-[address] MG tablet 00:00: 04:59 (12.5 mg Hos act 00 :00 total) by l mouth every 8 (eight) hours as needed for itching for up to 30 days. sertraline 2020- No 100mg QD Take 1 Met hodi (Zoloft) 9-10 10-[address] 100 MG 00:00: 04:59 (100 mg Hospita tablet 00 :00 total) by l mouth daily for 30 days. metoclopram 2020- No 5mg Q.[id number] Take 1 Methodi gerald 9-10 10-11 [id number] tablet (5 st (Reglan) 5 00:00: 04:59 3D mg total) H ospita MG tablet 00 :00 by mouth 3 l (three) times a day before meals for 30 days. spironolact 2020- No 25mg QD Take 25 mg Methodi one 09-[address] (ALDACTONE) 11:32: 00:00 daily. Hos cat 25 MG 20 :00 l tablet furosemide 2020- No 20mg Q.5D Take 20 mg Methodi (LASIX) 20 09-[address] mg tablet 11:32: 00:00 (two) Hospit a 20 :00 times a l day. traZODone 2020- No 50mg QD Take 50 mg M ethodi (DESYREL) 09-[address] 50 MG 10:01: 00:00 nightly as Hospi ta tablet 29 :00 needed for l sleep. furosemide 2020- No 40mg QD Take 1 Meth elvia (Lasix) 40 09-21 tablet (40 st mg tablet 00:00: 04:59 mg total) Ho spita 00 :00 by mouth l daily for 30 days. spironolact 2020- No 50mg QD Take 1 Met hodi [...] itching for up to 30 days. bisacodyL 2020- No 5mg Q.5D Take 1 Metho di (DULCOLAX) 08-31 tablet (5 st 5 mg EC 00:00: 04:59 mg total) Hosp mahesh tablet 00 :00 by mouth 2 l (two) times a day for 30 days. polyethylen 2020- No 17g Q.[id number] Take 17 g Methodi e glycol 6-30 07-31 [id number] by mouth [address] (GLYCOLAX) 00:00: 04:59 3D (three) Hos cat 17 00 :00 times a l gram/dose day for 30 powder days. riFAXimin 2020- No [id number] 550mg Q.5D Take 1 Methodi (Xifaxan) 08-[address] 550 mg 00:00: 04:59 (550 mg Hospita tablet 00 :00 total) by l mouth 2 (two) times a day for 30 days. amLODIPine 2020- No [id number] 10mg QD Take 1 Methodi (NORVASC) 07-27- tablet (10 st 10 mg 00:00: 04:59 [...] 20 :00 nightly. l per tablet pantoprazol 2020- No 40mg QD Take 40 mg Methodi e 5-25 05-[address] (PROTONIX) 15:20: 00:00 daily Hospi ta 40 MG EC 20 :00 before l tablet breakfast. furosemide 2020- No 20mg QD Take 20 mg [...] Take 15 mL M ethodi 10 gram/15 -26 08-25 ([address] mL (15 mL) 00:00: 04:59 total) by H ospita solution 00 :00 mouth 2 l (two) times a day for 30 days. atorvastati No 40mg QD Take 1 Met hodi n (LIPITOR) 5-25 -25 tablet (40 s t 40 mg 00:00: 04:59 mg total) Hospit a tablet 00 :00 by mouth l nightly for 30 days. furosemide No 40mg QD Take 2 Meth elvia (LASIX) 20 5-25 06-[address] mg tablet 00:00: 04:59 (40 mg Hospi ta 00 :00 total) by l mouth daily for 30 days. methocarbam 2020- No 500mg Q.[id number] Take 500 Methodi ol 5-20 05-[id number] (ROBAXIN) 20:05: 00:00 3D mouth 3 Hosp mahesh 500 MG 04 :00 (three) l tablet times a day. lisinopriL No 40mg QD Take 40 mg Methodi (PRINIVIL) 5-20 05-[address] 40 mg 20:04: 00:00 daily. Hospita tablet 58 :00 l insulin 2020- No 8U Q.[id number] Inject 8 Methodi lispro 5-20 05-[id number] (HumaLOG) 20:03: 00:00 3D under the Ho spita 100 unit/mL 44 :00 skin 3 l injection (three) times a day before meals. GUAIFENESIN 2020- No 400mg Q.[id number] Take 400 Methodi ORAL 5-20 05-[id number] 20:03: 00:00 3D mouth 3 Hospita 07 :00 (three) l times a day. ezetimibe-s 2020- No 1{tbl} QD Take 1 M ethodi imvastatin 5-20 05-[address] (VYTORIN) 20:03: 00:00 mouth Hospit a 10-40 mg 01 :00 nightly. l per tablet sildenafil Yes [id number] Take by [facility] citrate 4-14 [facility] (VIAGRA) 00:00: daily for of 100 MG 00 HTN and Medicin tablet ED. e testosteron 2020- No [id number] 200 mg/cc, [facility] e cypionate -14 04-14 1 vial = Col lege (DEPOTESTOT 00:00: 00:00 10 of ERONE 00 :00 ccInject Medicin CYPIONATE) _0.75_ cc e 200 MG/ML IM Q _7_ injection days. silver 2018-03 Yes [id number] Apply to Un jenny sulfADIAZIN 0-22 area(s) 2 ity of E 00:00: (two) [place] (SILVADENE) 00 times Medical 1 % cream daily. Ninfa silver 2018-03 Yes [id number] Apply to Un jenny sulfADIAZIN 0-22 area(s) 2 ity of E 00:00: (two) [place] (SILVADENE) 00 times Medical 1 % cream [...] depression . testosteron 2020- No 200 mg/cc, Steve e cypionate 08-27 1 vial = Col lege (DEPOTESTOT 00:00: 00:00 10 of ERONE 00 :00 ccInject Medicin CYPIONATE) _0.75_ cc e 200 MG/ML IM Q _7_ injection days. sildenafil 2020- No Take by [facility] citrate 08-27 [facility] (VIAGRA) 00:00: 00:00 daily for of 100 MG 00 :00 HTN and Medicin tablet ED. e anastrozole 2016-03 Yes Take one [facility] (ARIMIDEX) 1-27 per week Colle ge 1 MG tablet 00:00: of 00 Medicin e FENOFIBRATE Yes Take by Un jenny NANOCRYSTAL 5-25 mouth. ity of LIZED 08:49: [place] (TRICOR 56 Medical ORAL) [place] EZETIMIBE/S Yes Take by Un jenny IMVASTATIN 5-25 mouth. ity of (VYTORIN 08:49: [place] 10-20 ORAL) [address] [place] [address] Branch FENOFIBRATE Yes Take by Un jenny NANOCRYSTAL 5-25 mouth. ity of LIZED 08:49: [place] (TRICOR 56 Medical ORAL) [place] EZETIMIBE/S Yes Take by Un jenny IMVASTATIN 5-25 mouth. ity of (VYTORIN 08:49: [place] 10-20 ORAL) [address] [place] [address] Branch enalapril Yes 5mg Take 5 mg Uni vers (VASOTEC) 5 5-25 by mouth ity of mg tablet 08:49: daily. [address] enalapril Yes 5mg Take 5 mg Uni vers (VASOTEC) 5 5-25 by mouth ity of mg tablet 08:49: daily. [address] Branch fluorouraci Yes Apply to Univers l (EFUDEX) 2-20 area(s) 2 ity of 5 % cream 00:00: (two) [place] 00 times Medical daily. Branch fluorouraci Yes Apply to Univers l (EFUDEX) 2-20 area(s) 2 ity of 5 % cream 00:00: (two) [place] 00 times Medical daily. Branch Vital Signs Vital Name Observation Time Observation Value Comments Source Systolic blood 2020-06-16 00:05:00 133 mm[Hg] [facility] Medicine Diastolic blood 2020-06-16 00:05:00 78 mm[Hg] [facility] Medicine Heart rate 2020-06-16 00:05:00 97 /min [facility] Systolic blood 2021-03-30 17:45:00 158 mm[Hg] [facility] pressure Diastolic blood 2021-03-30 17:45:00 68 mm[Hg] [facility] pressure Heart rate 2021-03-30 17:45:00 79 /min [facility] Body temperature 2021-03-30 17:45:00 36.44 Bianca [facility] Respiratory rate 2021-03-30 17:45:00 20 /min [facility] Oxygen saturation in 2021-03-30 17:45:00 99 /min [facility] Arterial blood by Pulse oximetry Body height 2021-03-27 18:59:00 165.1 cm [facility] Body weight 2021-03-27 18:59:00 62.596 kg [facility] BMI 2021-03-27 18:59:00 22.96 kg/m2 [facility] Procedures Procedure Date / Time Performing Clinician Source Performed PROTHROMBIN TIME WITH INR 2021-03-30 18:11:00 [facility] HEMOGLOBIN A1C 2021-03-30 18:11:00 [facility] FIBRIN[facility]EN 2021-03-30 18:11:00 Krissy, [facility] spital COMPREHENSIVE METABOLIC 2021-03-30 18:11:00 Krissy, [facility] PANEL CBC WITH PLATELET AND 2021-03-30 [facility]:11[facility] US ABDOMINAL PARACENTESIS 2021-03-30 18:00:00 Krissy, [facility] IMAGING ANAEROBIC CULTURE 2021-03-30 16:59:00 [facility] AEROBIC CULTURE 2021-03-30 16:59:00 Karl Oakes spital GRAM STAIN 2021-03-30 16:59:00 Karl Oakes spital ALBUMIN, [facility] FLUID 2021-03-30 16:59[facility], [facility] FLUID 2021-03-30 16:59:00 Krissy [facility] LDH, [facility] FLUID 2021-03-30 16:59:00 Karl Oakes spital PROTEIN, [facility] FLUID 2021-03-30 16:59:00 Krissy [facility] CELL COUNT AND 2021-03-30 16:59:00 Karl Oakes spital DIFFERENTIAL, BODY FLUID TRIGLYCERIDES, [facility] FLUID 2021-03-30 16:59:00 Krissy [facility] CYTOLOGY 2021-03-30 16:59:00 Karl Oakes spital (NON-GYNECOLOGICAL) REQUEST AEROBIC CULTURE 2021-03-23 18:00:00 Karl aOkes spital ANAEROBIC CULTURE 2021-03-23 18:00:00 Krissy [facility] GRAM STAIN 2021-03-23 18:00:00 Karl Oakes spital CELL COUNT AND 2021-03-23 18:00:00 Karl Oakes spital DIFFERENTIAL, BODY FLUID AMYLASE LEVEL, [facility] FLUID 2021-03-23 18:00:00 Krissy [facility] ALBUMIN, [facility] FLUID 2021-03-23 18:00:00 Krissy [facility] PROTEIN, [facility] FLUID 2021-03-23 18:00:00 Krissy [facility] LDH, [facility] FLUID 2021-03-23 18:00:00 Karl Oakes spital TRIGLYCERIDES, [facility] FLUID 2021-03-23 18:00:00 [facility] 2021-03-23 18:00:00 Karl Oakes spital (NON-GYNECOLOGICAL) REQUEST US ABDOMINAL PARACENTESIS 2021-03-23 17:47:22 [facility]ING COMPREHENSIVE METABOLIC 2021-03-16 20:30:00 Krissy [facility] PANEL FIBRINOGEN 2021-03-16 20:30:00 Karl Oakes PROTHROMBIN TIME WITH INR 2021-03-16 20:30:00 [facility] CBC WITH PLATELET AND 2021-03-16 20:30:00 Krissy [facility] DIFFERENTIAL US ABDOMINAL PARACENTESIS 2021-03-16 17:40:00 Krissy [facility] IMAGING AEROBIC CULTURE 2021-03-16 17:15:00 Karl Oakes spital GRAM STAIN 2021-03-16 17:15:00 Karl Oakes spital ANAEROBIC CULTURE 2021-03-16 17:15:00 [facility] AND 2021-03-16 17:15:00 Krissy Karleileen Boyd spital DIFFERENTIAL, BODY FLUID ALBUMIN, [facility] FLUID 2021-03-16 17:15:[facility]YL[facility]EV[facility], [facility] FLUID 2021-03-16 17:15:00 [facility]UID 2021-03-16 17:15:00 Karl Oakes spital PROTEIN, [facility] FLUID 2021-03-16 17:15:[facility] TRIGLYCERIDES, MISC FLUID 2021-03-16 17:15:00 [facility] 2021-03-16 17:15:00 Karl Oakes spital (NON-GYNECOLOGICAL) REQUEST US ABDOMINAL PARACENTESIS 2021-03-09 20:00:00 [facility] AEROBIC CULTURE 2021-03-09 19:50:00 Karl Oakes spital ANAEROBIC CULTURE 2021-03-09 19:50:00 Krissy [facility] FUNGUS CULTURE 2021-03-09 19:50:00 Karl Oakes spital AFB CULTURE 2021-03-09 19:50:00 Karl Oakes spital FUNGUS SMEAR 2021-03-09 19:50:00 Karl Oakes spital AFB STAIN 2021-03-09 19:50:00 Karl Oakes spital ALBUMIN, [facility] FLUID 2021-03-09 19:50:00 [facility], [facility] FLUID 2021-03-09 19:50:00 Krissy, [facility] LDH, [facility] FLUID 2021-03-09 19:50:00 Karl Oakes spital PROTEIN, [facility] FLUID 2021-03-09 19:50:[facility] TRIGLYCERIDES, [facility] FLUID 2021-03-09 19:50:00 [facility] CELL COUNT AND 2021-03-09 19:50:00 Karl Oakes spital DIFFERENTIAL, BODY FLUID CYTOLOGY 2021-03-09 19:50:00 Karl Oakes spital (NON-GYNECOLOGICAL) REQUEST US ABDOMINAL PARACENTESIS 2021-02-23 23:13:56 Krissy [facility] IMAGING ANAEROBIC CULTURE 2021-02-23 22:40:00 Krissy [facility] AEROBIC CULTURE 2021-02-23 22:40:00 Karl Oakes spital AFB CULTURE 2021-02-23 22:40:00 Karl Oakes spital FUNGUS CULTURE 2021-02-23 22:40:00 Karl Oakes spital FUNGUS SMEAR 2021-02-23 22:40:00 Karl Oakes spital AFB STAIN 2021-02-23 22:40:00 Karl Oakes spital ALBUMIN, MISC FLUID 2021-02-23 22:40:00 Krissy [facility] AMYLASE LEVEL, MISC FLUID 2021-02-23 22:40:00 Krissy [facility] LDH, MISC FLUID 2021-02-23 22:40:00 Karl Oakes spital PROTEIN, [facility] 2021-02-23 22:40:00 Krissy [facility] CELL COUNT AND 2021-02-23 22:40:00 Karl Oakes DIFFERENTIAL, BODY FLUID TRIGLYCERIDES, [facility] FLUID 2021-02-23 22:40:00 Krissy [facility] CYTOLOGY 2021-02-23 22:40:00 Karl Oakes (NON-GYNECOLOGICAL) REQUEST POTASSIUM LEVEL 2021-02-23 21:40:00 [facility] GLUCOSE 2021-02-23 21:40:00 Karl Oakes spital BASIC METABOLIC PANEL 2021-02-23 19:20:00 Chiu [facility] Mora ESTIMATED GFR 2021-02-23 19:20:00 Osprey [facility] PROTHROMBIN TIME WITH INR 2021-02-17 19:11:00 [facility] FIBRINOGEN 2021-02-17 19:11:00 Karl Oakes spital COMPREHENSIVE METABOLIC 2021-02-17 19:11:00 Krissy, [facility] PANEL CBC WITH PLATELET AND 2021-02-17 19:11:00 [facility] ABDOMINAL PARACENTESIS 2021-02-15 21:00:00 Breezy [facility] IMAGING ANAEROBIC CULTURE 2021-02-15 20:35:00 [facility] 2021-02-15 20:35:00 Rupinder Tijerina spital GRAM STAIN 2021-02-15 20:35:00 Rupinder Tijerina carrie ALBUMIN, MISC FLUID 2021-02-15 20:35:00 [facility] TRIGLYCERIDES, MISC FLUID 2021-02-15 20:35:00 [facility] PROTEIN, MISC FLUID 2021-02-15 20:35:00 [facility] AMYLASE LEVEL, [facility] 2021-02-15 20:35:00 [facility] CELL COUNT AND 2021-02-15 20:35:00 Rupinder Tijerina DIFFERENTIAL, BODY FLUID CYTOLOGY 2021-02-15 20:35:00 Rupinder Tijerina (NON-GYNECOLOGICAL) REQUEST POC GLUCOSE 2021-02-01 20:04:00 Ty Basurtotal US ABDOMINAL PARACENTESIS 2021-02-01 17:30:00 [facility] IMAGING AEROBIC CULTURE 2021-02-01 17:00:00 [facility] ANAEROBIC CULTURE 2021-02-01 17:00:00 [facility] GRAM STAIN 2021-02-01 17:00:00 Herberth Awad carrie Marcello REma CELL COUNT AND 2021-02-01 17:00:00 [facility] DIFFERENTIAL, BODY FLUID PROTEIN, [facility] FLUID 2021-02-01 17:00:00 [facility] LDH, [facility] FLUID 2021-02-01 17:00:00 [facility] ALBUMIN, [facility] FLUID 2021-02-01 17:00:00 [facility] PH, MISC FLUID 2021-02-01 17:00:00 [facility] GLUCOSE LEVEL, MISC FLUID 2021-02-01 17:00:00 [facility] AMYLASE LEVEL, [facility] FLUID 2021-02-01 17:00:00 [facility] R. POC GLUCOSE 2021-02-01 15:25:00 Ty Basurto spital COMPREHENSIVE METABOLIC 2021-02-01 12:30:00 Ronda Ty [facility] PANEL ESTIMATED GFR 2021-02-01 12:30:00 Ty Basurto HC COMPLETE BLD COUNT 2021-02-01 10:31:00 [facility] W/AUTO DIFF PHOSPHORUS LEVEL 2021-02-01 10:31:00 [facility] MAGNESIUM LEVEL 2021-02-01 10:31:00 [facility] COMPREHENSIVE METABOLIC 2021-02-01 10:31:00 [facility] PANEL ESTIMATED GFR 2021-02-01 10:31:00 Ty Basurto spital POC GLUCOSE 2021-02-01 04:07:00 Ty Basurto spital ECG 12-LEAD 2021-02-01 03:51:51 [facility] LIPID PANEL 2021-02-01 03:48:00 [facility] HEMOGLOBIN A1C 2021-02-01 03:48:00 [facility] B NATRIURETIC PEPTIDE 2021-02-01 03:48:00 [facility] COVID-19 QUALITATIVE 2021-01-31 23:23:00 [facility] RT-PCR Marcello León POC GLUCOSE 2021-01-31 21:14:00 [facility] spital Marcello R. XR CHEST 1 VW PORTABLE 2021-01-31 20:41:00 Reba Whelan [facility] PROTHROMBIN TIME WITH INR 2021-01-31 20:14:00 Reba Whelan [facility] PARTIAL THROMBOPLASTIN 2021-01-31 20:14:00 Sn Tipehlove Conklin [facility] TIME (PTT) ID CRITICAL CARE, E/M 2021-01-31 20:06[facility] Marcello León HC COMPLETE BLD COUNT 2021-01-31 18:50:00 Shana Mendoza [facility] W/AUTO DIFF COMPREHENSIVE METABOLIC 2021-01-31 18:50[facility]00 [facility] PANEL ESTIMATED GFR 2021-01-31 18:50:00 [facility] PARTIAL THROMBOPLASTIN 2021-01-25 18:32:00 [facility] TIME (PTT) PROTHROMBIN TIME WITH INR 2021-01-25 18:32:00 [facility] FIBRINOGEN 2021-01-25 18:32:00 Breezy [facility] Herberth Boyd spital COMPREHENSIVE METABOLIC 2021-01-25 18:32:00 [facility] PANEL HC COMPLETE BLD COUNT 2021-01-25 18:32:00 [facility] W/AUTO DIFF ESTIMATED GFR 2021-01-25 18:32:00 Breezy Rupindernick Boyd spital AEROBIC CULTURE 2021-01-05 19:10:00 Krissy Karleileen Kevin spital ANAEROBIC CULTURE 2021-01-05 19:10:00 Krissy [facility] US ABDOMINAL PARACENTESIS 2021-01-05 18:31:30 Krissy [facility] IMAGING GRAM STAIN 2021-01-05 18:10:00 Krissy Karleileen Kevin spital AMYLASE LEVEL, [facility] FLUID 2021-01-05 18:10:00 Krissy [facility] ALBUMIN, [facility] FLUID 2021-01-05 18:10:00 Krissy [facility] PROTEIN, [facility] FLUID 2021-01-05 18:10:00 Krissy [facility] LDH, [facility] FLUID 2021-01-05 18:10:00 Krissy [facility] Anglican spital TRIGLYCERIDES, [facility] FLUID 2021-01-05 18:10:00 [facility] CELL COUNT AND 2021-01-05 18:10:00 Karl Oakes spital DIFFERENTIAL, BODY FLUID CYTOLOGY 2021-01-05 18:10:00 Karl Oakes spital (NON-GYNECOLOGICAL) REQUEST US ABDOMINAL PARACENTESIS 2020-12-22 19:25:20 [facility] IMAGING AMYLASE LEVEL, [facility] FLUID 2020-12-22 18:50:00 [facility] ALBUMIN, MISC FLUID 2020-12-22 18:50:00 [facility], MIS FLUID 2020-12-22 18:50:00 [facility] LDH, MISC FLUID 2020-12-22 18:50:00 Karl Oakes spital TRIGLYCERIDES, [facility] 2020-12-22 18:50:00 [facility] CELL COUNT AND 2020-12-22 18:50:00 Karl Oakes spital DIFFERENTIAL, BODY FLUID CYTOLOGY 2020-12-22 18:50:00 Karl Oakes spital (NON-GYNECOLOGICAL) REQUEST AEROBIC CULTURE 2020-12-22 18:20:00 Karl Oakes spital ANAEROBIC CULTURE 2020-12-22 18:20:00 [facility] GRAM STAIN 2020-12-22 18:20:00 Karl Oakes spital US ABDOMINAL PARACENTESIS 2020-12-09 21:00:00 Krissy [facility] IMAGING ANAEROBIC CULTURE 2020-12-09 19:42:00 [facility] AEROBIC CULTURE 2020-12-09 19:42:00 Karl Oakes spital GRAM STAIN 2020-12-09 19:42:00 Karl Oakes spital CELL COUNT AND 2020-12-09 19:42:00 Karl Oakes spital DIFFERENTIAL, BODY FLUID AMYLASE LEVEL, [facility] 2020-12-09 19:42:00 Krissy [facility] LDH, [facility] FLUID 2020-12-09 19:42:00 Karl Oakes spital TRIGLYCERIDES, [facility] FLUID 2020-12-09 19:42:00 [facility] PROTEIN, MIS FLUID 2020-12-09 19:42:00 Krissy [facility] ALBUMIN, [facility] FLUID 2020-12-09 19:42:00 Krissy [facility] CYTOLOGY 2020-12-09 19:42:00 Karl Oakes spital (NON-GYNECOLOGICAL) REQUEST HC COMPLETE BLD COUNT 2020-12-09 16:34:00 Krissy [facility] W/AUTO DIFF COMPREHENSIVE METABOLIC 2020-12-09 16:34:00 Krissy [facility] PANEL FIBRINOGEN 2020-12-09 16:34:00 Karl Oakes spital PROTHROMBIN TIME WITH INR 2020-12-09 16:34:00 Krissy [facility] ESTIMATED GFR 2020-12-09 16:34:00 Karl Oakes spital ALBUMIN, [facility] FLUID 2020-11-16 22:17:00 Krissy [facility] AMYLASE LEVEL, [facility] FLUID 2020-11-16 22:17:00 Krissy [facility] LDH, [facility] FLUID 2020-11-16 22:17:00 Karl Oakes spital PROTEIN, [facility] FLUID 2020-11-16 22:17:00 [facility] TRIGLYCERIDES, [facility] FLUID 2020-11-16 22:17:00 [facility] CELL COUNT AND 2020-11-16 22:17:00 Karl Oakes spital DIFFERENTIAL, BODY FLUID US ABDOMINAL PARACENTESIS 2020-11-16 20:19:14 [facility] IMAGING CYTOLOGY 2020-11-16 19:50:00 Karl Oakes spital (NON-GYNECOLOGICAL) REQUEST AEROBIC CULTURE 2020-11-16 17:39:00 Karl Oakes spital GRAM STAIN 2020-11-16 17:39:[address] ABDOMEN W WO CONTRAST 2020-11-14 18:33:22 Krissy Karl [facility] FIBRINOGEN 2020-11-11 18:45:00 Karl Oakes spital PROTHROMBIN TIME WITH INR 2020-11-11 18:45:00 [facility] COMPREHENSIVE METABOLIC 2020-11-11 18:45:00 [facility] CBC WITH PLATELET AND 2020-11-11 18:45:00 [facility] DIFFERENTIAL BASIC METABOLIC PANEL 2020-11-03 18:14:00 [facility] CBC WITH PLATELET AND 2020-11-03 18:14:00 [facility] DIFFERENTIAL HEPATIC FUNCTION PANEL 2020-11-03 18:14:00 KrissyFormerly [facility] PROTHROMBIN TIME WITH INR 2020-11-03 18:14:00 [facility] US ABDOMINAL PARACENTESIS 2020-09-27 18:00:00 Krissy [facility] IMAGING AEROBIC CULTURE 2020-09-27 17:30:00 Karl Oakes spital GRAM STAIN 2020-09-27 17:30:00 Karl Oakes spital ANAEROBIC CULTURE 2020-09-27 17:30:00 [facility] ALBUMIN, [facility] FLUID 2020-09-27 17:30:00 [facility] AMYLASE LEVEL, [facility] FLUID 2020-09-27 17:30:00 [facility] PROTEIN, [facility] FLUID 2020-09-27 17:30:00 [facility] LDH, [facility] FLUID 2020-09-27 17:30:00 Karl Oakes spital TRIGLYCERIDES, MISC FLUID 2020-09-27 17:30:00 Karl Oakes [facility] CELL COUNT AND 2020-09-27 17:30:00 Karl Oakes DIFFERENTIAL, BODY FLUID CYTOLOGY 2020-09-27 17:30:00 Karl Oakes spidustin (NON-GYNECOLOGICAL) REQUEST POC GLUCOSE 2020-07-26 13:11:00 Jose Ford HC COMPLETE BLD COUNT 2020-07-26 10:11:00 [facility] W/AUTO DIFF COMPREHENSIVE METABOLIC 2020-07-26 10:11:00 [facility] PANEL MAGNESIUM LEVEL 2020-07-26 10:11:00 [facility] PHOSPHORUS LEVEL 2020-07-26 10:11:00 [facility] PROTHROMBIN TIME WITH INR 2020-07-26 10:11:00 [facility] PARTIAL THROMBOPLASTIN 2020-07-26 10:11:00 [facility] TIME (PTT) ESTIMATED GFR 2020-07-26 10:11:00 [facility] POC GLUCOSE 2020-07-26 10:08:00 Jose Ford POC GLUCOSE 2020-07-26 07:05:00 Jose Ford POC GLUCOSE 2020-07-26 02:53:00 LilianaJose childers POC GLUCOSE 2020-07-25 22:02:00 LiliaanJose childers POC GLUCOSE 2020-07-25 16:31:00 LilianaJose childers osleticiatal Farrukh POC GLUCOSE 2020-07-25 12:55:00 [facility] HC COMPLETE BLD COUNT 2020-07-25 09:46:00 [facility] W/AUTO DIFF COMPREHENSIVE METABOLIC 2020-07-25 09:46:00 [facility] PANEL MAGNESIUM LEVEL 2020-07-25 09:46:00 [facility] PHOSPHORUS LEVEL 2020-07-25 09:46:00 [facility] PROTHROMBIN TIME WITH INR 2020-07-25 09:46:00 [facility] PARTIAL THROMBOPLASTIN 2020-07-25 09:46:00 [facility] TIME (PTT) ESTIMATED GFR 2020-07-25 09:46:00 [facility] 2020-07-25 09:40:00 [facility] POC [facility]SE 2020-07-25 05:20:00 [facility] POC GLU[facility]SE 2020-07-25 01:37:00 [facility] POC GLUCOSE 2020-07-24 21:13:00 [facility] POC GLUCOSE 2020-07-24 16:55:00 [facility] POC GLU[facility]SE 2020-07-24 13:10:00 [facility] HC COMPLETE BLD COUNT 2020-07-24 08:43:00 [facility] W/AUTO DIFF COMPREHENSIVE METABOLIC 2020-07-24 08:43:00 [facility] PANEL MAGNESIUM LEVEL 2020-07-24 08:43:00 [facility] PHOSPHORUS LEVEL 2020-07-24 08:43:00 [facility] PROTHROMBIN TIME WITH INR 2020-07-24 08:43:00 [facility] PARTIAL THROMBOPLASTIN 2020-07-24 08:43:00 [facility] TIME (PTT) ESTIMATED GFR 2020-07-24 08:43:00 Shana Mendoza [facility] POC GLUCOSE 2020-07-24 08:39:00 [facility] POC GLUCOSE 2020-07-24 05:09:00 [facility] POC GLUCOSE 2020-07-24 01:28:00 [facility] POC GLUCOSE 2020-07-23 23:13:00 [facility] POC GLUCOSE 2020-07-23 20:39:00 [facility] XR HIP 3-4 VIEWS BILATERAL 2020-07-23 19:58:00 [facility] XR LUMBAR SPINE COMPLETE 2020-07-23 19:57:00 [facility] 4+ VW POC GLUCOSE 2020-07-23 16:13:00 [facility] POC GLUCOSE 2020-07-23 13:06:00 [facility] POC GLUCOSE 2020-07-23 11:35:00 [facility] POC GLUCOSE 2020-07-23 10:31:00 [facility] HC COMPLETE BLD COUNT 2020-07-23 09:03:00 [facility] W/AUTO DIFF COMPREHENSIVE METABOLIC 2020-07-23 09:03:00 [facility] PANEL MAGNESIUM LEVEL 2020-07-23 09:03:00 [facility] PHOSPHORUS LEVEL 2020-07-23 09:03:00 [facility] PROTHROMBIN TIME WITH INR 2020-07-23 09:03:00 [facility] PARTIAL THROMBOPLASTIN 2020-07-23 09:03:00 [facility] TIME (PTT) ESTIMATED GFR 2020-07-23 09:03:00 Shana Mendoza [facility] POC GLUCOSE 2020-07-23 07:06:00 [facility] POC GLUCOSE 2020-07-23 02:11:00 [facility] POC GLUCOSE 2020-07-22 22:33:00 Carl, [facility] POC GLUCOSE 2020-07-22 20:14:00 Carl [facility] US ABDOMINAL DOPPLER 2020-07-22 19:00:00 Jaya [facility] POC GLUCOSE 2020-07-22 18:43:00 Carl [facility] US HEPATIC 2020-07-22 18:10:[address] [facility] US ABDOMINAL PARACENTESIS 2020-07-22 17:40:[address] [facility] IMAGING AF[employer] STAIN 2020-07-22 17:34:00 [facility] AFB CULTURE 2020-07-22 17:34:00 [facility] AEROBIC CULTURE 2020-07-22 17:34:00 [facility] ANAEROBIC CULTURE 2020-07-22 17:34:00 [facility] GRAM STAIN 2020-07-22 17:34:00 Kelly [facility] LDH, [facility] FLUID 2020-07-22 17:33:00 [facility] PROTEIN, [facility] FLUID 2020-07-22 17:33:00 delano [facility] CELL COUNT AND 2020-07-22 17:33:00 [facility] DIFFERENTIAL, BODY FLUID ALBUMIN, [facility] FLUID 2020-07-22 17:33:00 [facility] BILIRUBIN TOTAL, [facility] 2020-07-22 17:33:00 [facility] FLUID PH, [facility] FLUID 2020-07-22 17:33:00 [facility] GLUCOSE LEVEL, [facility] FLUID 2020-07-22 17:33:00 Jaya [facility] TRIGLYCERIDES, MISC FLUID 2020-07-22 17:33:[address] [facility] TTE COMPLETE, WO CONTRAST, 2020-07-22 16:01:45 [facility] hospital[facility] W DOPPLER ([id number]) ECG 12-LEAD 2020-07-22 14:13:26 [facility] POC GLUCOSE 2020-07-22 13:14:00 [facility] POC GLUCOSE 2020-07-22 10:08:00 [facility] ANTI MITOCHONDRIA SCREEN 2020-07-22 06:26:00 [facility] HC COMPLETE BLD COUNT 2020-07-22 06:26:00 [facility] W/AUTO DIFF HEPATITIS A ANTIBODY IGM 2020-07-22 06:25:00 [facility]ais HEPATITIS B SURFACE 2020-07-22 06:25:00 [facility] ANTIGEN Awais HEPATITIS B CORE ANTIBODY 2020-07-22 06:25:00 [facility] TOTAL Awais HEPATITIS C ANTIBODY 2020-07-22 06:25:00 [facility]ais IMMUNOGLOBULIN M 2020-07-22 06:24:00 [facility] Awais CANCER ANTIGEN 19-9 2020-07-22 06:24:00 [facility] Awais COMPREHENSIVE METABOLIC 2020-07-22 06:24:00 [facility] PANEL MAGNESIUM LEVEL 2020-07-22 06:24:00 [facility] PHOSPHORUS LEVEL 2020-07-22 06:24:00 [facility] ESTIMATED GFR 2020-07-22 06:24:00 Shana Mendoza [facility] ALPHA FETOPROTEIN 2020-07-22 06:23:00 [facility] Awais CARCINOEMBRYONIC ANTIGEN 2020-07-22 06:23:00 [facility] (CEA) Awais POC GLUCOSE 2020-07-22 06:21:00 [facility] PROTHROMBIN TIME WITH INR 2020-07-22 06:20:00 [facility] PARTIAL THROMBOPLASTIN 2020-07-22 06:20:00 [facility] TIME (PTT) POC GLUCOSE 2020-07-22 03:01:00 [facility] POC GLUCOSE 2020-07-22 01:52:00 [facility] CT CHEST WO CONTRAST 2020-07-22 00:00:04 [facility] ANTI SMOOTH MUSCLE AB 2020-07-21 21:20:00 [facility] SCREEN KYLIE 2020-07-21 21:20:00 [facility] HIV AG/AB COMBINATION 2020-07-21 21:20:00 [facility] TROPONIN 2020-07-21 21:20:00 [facility] PROCALCITONIN 2020-07-21 21:20:00 [facility] HEPATITIS ACUTE PANEL 2020-07-21 21:20:00 [facility] ALCOHOL LEVEL, BLOOD 2020-07-21 21:20:00 [facility] ANTI SMOOTH MUSCLE AB 2020-07-21 21:20:00 [facility] TITER BLOOD CULTURE, AEROBIC & 2020-07-21 21:18:00 [facility] ANAEROBIC COVID-19 QUALITATIVE 2020-07-21 21:18:00 [facility] RT-PCR BLOOD CULTURE, AEROBIC & 2020-07-21 21:17:00 [facility] ANAEROBIC LACTIC ACID LEVEL 2020-07-21 20:17:00 [facility] PROCALCITONIN 2020-07-21 20:17:00 [facility] FERRITIN LEVEL 2020-07-21 20:17:00 [facility] FOLATE LEVEL 2020-07-21 20:17:00 [facility] LDH 2020-07-21 20:17:00 [facility] TOTAL IRON BINDING 2020-07-21 20:17:00 [facility] CAPACITY THYROID STIMULATING 2020-07-21 20:17:00 [facility] HORMONE VITAMIN B12 LEVEL 2020-07-21 20:17:00 [facility] TROPONIN 2020-07-21 20:17:[address] [facility] [address] RENAL STONE PROTOCOL 2020-07-21 20:09:37 [facility] ID CRITICAL CARE, E/M 2020-07-21 18:35:43 [facility] 30-74 MINUTES XR CHEST 1 VW PORTABLE 2020-07-21 18:06:00 [facility] URINE CULTURE 2020-07-21 17:25:00 [facility] HC COMPLETE BLD COUNT 2020-07-21 17:25:00 [facility] W/AUTO DIFF COMPREHENSIVE METABOLIC 2020-07-21 17:25:00 [facility] PANEL LIPASE LEVEL 2020-07-21 17:25:00 [facility] URINALYSIS SCREEN AND 2020-07-21 17:25:00 [facility] MICROSCOPY, WITH REFLEX TO CULTURE PHOSPHORUS LEVEL 2020-07-21 17:25:00 [facility] MAGNESIUM LEVEL 2020-07-21 17:25:00 [facility] TROPONIN 2020-07-21 17:25:00 [facility] B NATRIURETIC PEPTIDE 2020-07-21 17:25:00 [facility] AMMONIA LEVEL 2020-07-21 17:25:00 Mendoza, [facility] ESTIMATED GFR 2020-07-21 17:25:00 Mendoza, [facility] PROTHROMBIN TIME WITH INR 2020-07-21 17:25:00 Mendoza, [facility] PARTIAL THROMBOPLASTIN 2020-07-21 17:25:00 [facility]Sh[facility] TIME (PTT[facility] LIPID PANEL 2020-07-21 17:25:00 [facility] PROCALCITONIN 2020-07-21 17:25:00 [facility] FERRITIN LEVEL 2020-07-21 17:25:00 [facility] TOTAL IRON BINDING 2020-07-21 17:25:00 Mendoza, [facility] CAPACITY LDH 2020-07-21 17:25:00 [facility] THYROID STIMULATING 2020-07-21 17:25:00 [facility] HORMONE GGT 2020-07-21 17:25:00 [facility] BILIRUBIN DIRECT 2020-07-21 17:25:00 [facility] HEMOGLOBIN A1C 2020-07-21 17:25:00 [facility] FIBRINOGEN 2020-07-21 17:25:00 [facility] D-DIMER 2020-07-21 17:25:00 [facility] ACETAMINOPHEN LEVEL 2020-07-21 17:25:00 [facility] LIPID PANEL 2020-06-16 01:05:00 [facility] HEMATOCRIT 2020-06-16 01:05:00 [facility] ESTRADIOL 2020-06-16 01:05:00 Doris [facility] PROLACTIN 2020-06-16 01:05:00 [facility] TESTOSTERONE, FREE/TOTAL 2020-06-16 01:05:00 Alhaji George I [facility] Medicine Plan of Care Planned Activity Planned Date Details Comments Source Future Scheduled 2021-04-05 DIABETES: RETINAL EYE [facility] Test 00:30:01 EXAM [code = DIABETES: RETINAL EYE EXAM] Future Scheduled 2021-04-05 [facility] Test 00:30:01 [code = DIABETIC FOOT EXAM] Future Scheduled 2021-04-05 [facility]ING[facility]IN[facility] 00:30[facility]01 [code = SHINGLES VACCINES (#1)] Future Scheduled 2021-04-05 65+ [facility]CCAL [facility] Test 00:30:01 VACCINE (2 of 4 - PPSV23) [code = 65+ PNEUMOCOCCAL VACCINE (2 of 4 - PPSV23)] Future Scheduled 2021-04-05 COVID-19 VACCINE (2 - [facility] Test 00:30:01 Moderna 3-dose series) [code = COVID-19 VACCINE (2 - Moderna 3-dose series)] Future Scheduled 2021-04-05 INFLUENZA [facility]ACCINE [facility] Test 00:30:01 [code = INFLUENZA VACCINE] Future Scheduled TETANUS SHOT (ADULT) [facility] of Test [code = TETANUS SHOT Medicin e (ADULT)] Future Scheduled COVID-19 Vaccine (1) [facility] [code = COVID-19 Medicine Vaccine (1)] Future Scheduled ZOSTER VACCINE (1 of [facility] Test 2) [code = ZOSTER Medicine VACCINE (1 of 2)] Future Scheduled MEDICARE AWV (Initial) [facility] Test [code = MEDICARE AWV Medicin e (Initial)] Future Scheduled FALL SCREEN [code = [facility] of Test FALL SCREEN] Medicine Future Scheduled PNEUMOVAX >=65 [facility] of Test (PPSV23) [code = Medicine PNEUMOVAX >=65 (PPSV23)] Future Scheduled FLU VACCINE > 6 MONTHS B [facility] Test [code = FLU VACCINE > Medici ne 6 MONTHS] Encounters Start End Encounter Admission Attending Care Care Encounter Source Date/Time Date/Time Type Type Clinicians Facility Department ID 2021-07-25 2021-07-[address] [facility] [id number] [facility] 10:15:00 10:15:00 [id number] ity [facility] 2021-06-15 2021-06-15 Outpatient TRESA, [facility] [id number] [place] 00:00:00 00:00:[address] SHANA [address] 2021-06-15 2021-06-15 Outpatient TRESA, [facility] [id number] [place] 00:00:00 00:00:00 SHANA [address] 2021-06-14 2021-06-14 Outpatient GTZ, [facility] [id number] [place] 00:00:00 00:00:00 SHANA 817 [facility] i 2021-06-12 2021-06-12 [facility] [id number] [facility] 11:30:00 11:30:00 BUCK [facility] 2021-06-12 2021-06-12 [id number] [facility] 00:00:00 00:00:00 Buck Cope MULTISPEC [id number] [facility] [id number] [facility] [id number] [address] DIABETES CLINIC 2021-05-31 2021-06-04 Inpatient TRANMARVIN [facility] [id number] [place] 00:00:00 00:00:[address] 2021-05-26 2021-05-26 Outpatient KRISSY, [facility] [id number] [place] 00:00:00 00:00:00 KARL [address] 2021-05-24 2021-05-24 Outpatient TRESA, [facility] [id number] [place] 00:00:00 00:00:00 SHANA [address] 2021-05-24 2021-05-24 Outpatient TRESA, [facility] [id number] [place] 00:00:00 00:00:[address] SHANA [address] 2021-05-18 2021-05-18 Outpatient KRISSY, [facility] [id number] [place] 00:00:00 00:00:00 KARL [address] 2021-05-11 2021-05-11 Outpatient KRISSY, [facility] [id number] [place] 00:00:00 00:00:00 KARL 524 [facility] 2021-05-04 2021-05-04 Outpatient KRISSY, [facility] [id number] [place] 00:00:00 00:00:00 KARL 373 [facility] 2021-04-28 2021-04-28 Outpatient KRISSY, [facility] [id number] [place] 00:00:00 00:00:00 KARL 850 [facility] 2021-04-28 2021-04-28 Outpatient KRISSY, [facility] [id number] [place] 00:00:00 00:00:00 KARL 428 [facility] 2021-04-27 2021-04-27 Outpatient KRISSY, [facility] [id number] [place] 00:00:00 00:00:00 KARL 033 [facility] i 2021-04-20 2021-04-20 Outpatient KRISSY, [facility] [id number] [place] 00:00:00 00:00:00 KARL 629 [facility] 2021-04-13 2021-04-13 Outpatient [facility]SY, [facility] [facility] [id number] [address] [place] 00:00:00 00:00:00 KARL 193 Method i 2021-04-06 2021-04-06 Outpatient KRISSY, [facility] [id number] [address] [place] 00:00:00 00:00:00 KARL 331 Method i 2021-04-03 2021-04-03 Office CARLOS Kenyon 1.2.840.114 884 04538 [facility] 11:45:00 12:04:01 Visit Buck BAEZ 350.1.13.10 Iker 4.2.7.2.686 [facility] [id number] [facility] tavares [place] [address] [facility] 2021-03-31 2021-03-31 Janeen Fernandez 1.2.840.1 [id number] 6170 Methodi 00:00:00 00:00:00 Only Ayla 41907.1.1 664 3.430.2.7 Hospit a .3.793411 l .8 2021-03-31 2021-03-31 Janeen Oakes, 1.2.840.1 [id number] 3684 Methodi 00:00:00 00:00:00 Only Karl 77323.1.[address] 3.430.2.7 Hospit a .3.877341 l .8 2021-03-30 2021-03-30 [facility], 1.2.840.1 [id number] 58893 06854 [place] 00:00:00 00:00:00 Encounter KARL 90217.1.1 [address] .3.761262 .8 2021-03-30 2021-03-30 Travel 1.2.840.1 1.2.393.641 7199 291926 Methodi 00:00:00 00:00:[address] 3.430.2.7 0.2.7.3.698 Ho spita .3.593301 084.8 l .8 2021-03-27 2021-03-27 [facility], 1.2.840.1 [id number] 5018 Methodi 12:50:50 13:52:12 Visit Karl 24807.1.[address] 3.430.2.7 Hospit a .3.346301 l .8 2021-03-27 2021-03-27 Travel 1.2.840.1 1.2.925.268 5595 208838 Methodi 00:00:00 00:00:[address] 3.430.2.7 0.2.7.3.698 Ho spita .3.109284 084.8 l .8 2021-03-24 2021-03-24 Travel 1.2.840.1 1.2.311.145 5034 097658 Methodi 00:00:00 00:00:[address] 3.430.2.7 0.2.7.3.698 Ho spita .3.956516 084.8 l .8 2021-03-24 2021-03-24 Orders Serban, 1.2.840.1 [id number] 3035 Methodi 00:00:00 00:00:00 Only Ayla 41465.1.[address] 3.430.2.7 Hospit a .3.402006 l .8 2021-03-23 2021-03-23 [facility], 1.2.840.1 [id number] 98429 48552 [place] 00:00:00 00:00:00 Encounter KARL 38458.1.1 [address] .3.701713 .8 2021-03-22 2021-03-22 Travel 1.2.840.1 1.2.315.555 4630 131637 Methodi 00:00:00 00:00:[address] 3.430.2.7 0.2.7.3.698 Ho spita .3.810511 084.8 l .8 2021-03-17 2021-03-17 Orders Serban, 1.2.840.1 [id number] 3507 Methodi 00:00:00 00:00:00 Only Ayla 85188.1.[address] 3.430.2.7 Hospit a .3.377056 l .8 2021-03-17 2021-03-17 Orders [facility], 1.2.840.1 [id number] 0225 Methodi 00:00:00 00:00:00 Only Karl 62342.1.[address] 3.430.2.7 Hospit a .3.149816 l .8 2021-03-16 2021-03-16 [facility], 1.2.840.1 [id number] 33476 03056 [place] 00:00:00 00:00:00 Encounter KARL 25586.1.1 [address].7 [address] .3.242268 .8 2021-03-16 2021-03-16 Orders [facility], 1.2.840.1 [id number] 834509 1137 Methodi 00:00:00 00:00:00 Only Karl 82067.1.[address] 3.430.2.7 Hospit a .3.246663 l .8 2021-03-16 2021-03-16 Travel 1.2.840.1 1.2.265.716 9459 900878 Methodi 00:00:00 00:00:[address] 3.430.2.7 0.2.7.3.698 Ho spita .3.835943 084.8 l .8 2021-03-13 2021-03-13 Orders Serban, 1.2.840.1 [id number] 9740 Methodi 00:00:00 00:00:00 Only Ayla 62275.1.[address] 3.430.2.7 Hospit a .3.651511 l .8 2021-03-09 2021-03-09 [facility], 1.2.840.1 [id number] 63497 89051 [place] 00:00:00 00:00:00 Encounter KARL 35613.1.1 [address].2.7 [address] .3.026653 .8 2021-03-09 2021-03-09 Travel 1.2.840.1 1.2.121.926 1362 743885 Methodi 00:00:00 00:00:[address] 3.430.2.7 0.2.7.3.698 Ho spita .3.483894 084.8 l .8 2021-03-03 2021-03-03 [facility], 1.2.840.1 [id number] 4193 Methodi 00:00:00 00:00:00 Only Karl 87010.1.[address] 3.430.2.7 Hospit a .3.432186 l .8 2021-02-28 2021-02-28 Travel 1.2.840.1 1.2.106.349 2570 495714 Methodi 00:00:00 00:00:[address] 3.430.2.7 0.2.7.3.698 Ho spita .3.825400 084.8 l .8 2021-02-23 2021-02-23 [facility], 1.2.840.1 [id number] 76417 29386 Methodi 12:47:03 23:59:00 Encounter Karl 69357.1.[address] 3.430.2.7 Hospit a .3.300496 l .8 2021-02-23 2021-02-23 Travel 1.2.840.1 1.2.782.710 5006 225414 Methodi 00:00:00 00:00:[address] 3.430.2.7 0.2.7.3.698 Ho spita .3.666163 084.8 l .8 2021-02-20 2021-02-20 Travel 1.2.840.1 1.2.637.934 4339 025980 Methodi 00:00:00 00:00:[address] 3.430.2.7 0.2.7.3.698 Ho spita .3.844570 084.8 l .8 2021-02-17 2021-02-17 [facility] 1.2.840.1 [id number] 3569 Methodi 11:50:54 12:50:17 Visit Karl 27211.1.[address] 3.430.2.7 Hospit a .3.677205 l .8 2021-02-17 2021-02-17 Travel 1.2.840.1 1.2.780.772 4908 516146 Methodi 00:00:00 00:00:[address] 3.430.2.7 0.2.7.3.698 Ho spita .3.665828 084.8 l .8 2021-02-16 2021-02-16 [facility], 1.2.840.1 [id number] 107506 7522 Methodi 00:00:00 00:00:00 Only Ayla 73128.1.[address] 3.430.2.7 Hospit a .3.969195 l .8 2021-02-15 2021-02-15 [facility], 1.2.840.1 [id number] 11603 58962 Methodi 13:00:00 23:59:00 Encounter Rupinder 52090.1.[address] 3.430.2.7 Hospit a .3.760657 l .8 2021-02-15 2021-02-15 Travel 1.2.840.1 1.2.195.748 6440 918169 Methodi 00:00:00 00:00:[address] 3.430.2.7 0.2.7.3.698 Ho spita .3.606528 084.8 l .8 2021-02-06 2021-02-06 Travel 1.2.840.1 1.2.469.757 5724 890728 Methodi 00:00:00 00:00:[address] 3.430.2.7 0.2.7.3.698 Ho spita .3.443376 084.8 l .8 2021-02-03 2021-02-03 [facility], 1.2.840.1 [id number] 9451 Methodi 00:00:00 00:00:00 Only Karl 79059.1.[address] 3.430.2.7 Hospit a .3.967631 l .8 2021-02-02 2021-02-02 [facility], 1.2.840.1 [id number] 36545 71528 Methodi 23:59:00 23:59:00 Encounter Rupinder 92778.1.[address] 3.430.2.7 Hospit a .3.546846 l .8 2021-01-31 2021-02-01 Emergency Marcello Awad.2.8 40.1 [id number] Methodi 12:23:00 15:20:00 Ty Basurto 01632.1.[address] 3.430.2.7 Hospit a .3.996781 l .8 2021-01-31 2021-01-31 Travel 1.2.840.1 1.2.263.001 9856 488929 Methodi 00:00:00 00:00:[address] 3.430.2.7 0.2.7.3.698 Ho spita .3.613179 084.8 l .8 2021-01-30 2021-01-30 [facility], 1.2.840.1 [id number] 01443 35939 Methodi 23:59:00 23:59:00 Encounter Rupinder 42072.1.[address] 3.430.2.7 Hospit a .3.749758 l .8 2021-01-25 2021-01-25 [facility], 1.2.840.1 [id number] 406488 6132 Methodi 11:50:15 11:55:[address] 3.430.2.7 Hospit a .3.056997 l .8 2021-01-25 2021-01-25 Travel 1.2.840.1 1.2.183.755 2635 523178 Methodi 00:00:00 00:00:[address] 3.430.2.7 0.2.7.3.698 Ho spita .3.206483 084.8 l .8 2021-01-24 2021-01-24 [facility], 1.2.840.1 [id number] Methodi 11:12:18 11:29:32 [address] Rupinder 82720.1.[address] 3.430.2.7 Hospit a .3.871023 l .8 2021-01-06 2021-01-06 [facility], 1.2.840.1 [id number] 1681 Methodi 00:00:00 00:00:00 Only Karl 60384.1.[address] 3.430.2.7 Hospit a .3.957622 l .8 2021-01-05 2021-01-05 [facility] 1.2.840.1 [id number] 49070 Methodi 11:02:36 23:59:00 Encounter Karl 44727.1.[address] 3.430.2.7 Hospit a .3.738077 l .8 2021-01-05 2021-01-05 Travel 1.2.840.1 1.2.211.764 3010 324443 Methodi 00:00:00 00:00:[address] 3.430.2.7 0.2.7.3.698 Ho spita .3.227700 084.8 l .8 2020-12-27 2020-12-27 Travel 1.2.840.1 1.2.948.544 1124 205562 Methodi 00:00:00 00:00:[address] 3.430.2.7 0.2.7.3.698 Ho spita .3.680139 084.8 l .8 2020-12-22 2020-12-22 [facility] 1.2.840.1 [id number] 08946 Methodi 12:57:15 23:59:00 Encounter Karl 28469.1.[address] 3.430.2.7 Hospit a .3.273324 l .8 2020-12-22 2020-12-22 Travel 1.2.840.1 1.2.622.525 6040 590600 Methodi 00:00:00 00:00:[address] 3.430.2.7 0.2.7.3.698 Ho spita .3.461996 084.8 l .8 2020-12-20 2020-12-20 Travel 1.2.840.1 1.2.979.389 6317 797574 Methodi 00:00:00 00:00:[address] 3.430.2.7 0.2.7.3.698 Ho spita .3.908616 084.8 l .8 2020-12-09 2020-12-09 [facility], 1.2.840.1 [id number] 50809 66279 Methodi 12:41:04 23:59:00 Encounter Karl 72066.1.[address] 3.430.2.7 Hospit a .3.795788 l .8 2020-12-09 2020-12-09 [facility], 1.2.840.1 [id number] 6576 Methodi 11:15:03 11:20:[address] 3.430.2.7 Hospit a .3.540530 l .8 2020-12-09 2020-12-09 [facility], 1.2.840.1 [id number] 742639 6463 Methodi 09:59:53 10:53:14 Visit Karl 78007.1.[address] 3.430.2.7 Hospit a .3.665116 l .8 2020-12-09 2020-12-09 [facility], 1.2.840.1 [id number] 555162 5045 Methodi 00:00:00 00:00:00 Only Karl 69601.1.[address] 3.430.2.7 Hospit a .3.943362 l .8 2020-12-08 2020-12-08 Travel 1.2.840.1 1.2.214.113 5526 804953 Methodi 00:00:00 00:00:[address] 3.430.2.7 0.2.7.3.698 Ho spita .3.580974 084.8 l .8 2020-11-16 2020-11-16 [facility], 1.2.840.1 [id number] 19071 80875 Methodi 12:39:10 23:59:00 Encounter Karl 27263.1.[address] 3.430.2.7 Hospit a .3.710008 l .8 2020-11-16 2020-11-16 Travel 1.2.840.1 1.2.131.847 3064 618097 Methodi 00:00:00 00:00:[address] 3.430.2.7 0.2.7.3.698 Ho spita .3.170270 084.8 l .8 2020-11-14 2020-11-14 [facility], 1.2.840.1 [id number] 36762 48345 Methodi 12:33:53 23:59:00 Encounter Karl 41947.1.[address] 3.430.2.7 Hospit a .3.701369 l .8 2020-11-14 2020-11-14 Travel 1.2.840.1 1.2.779.730 7413 830648 Methodi 00:00:00 00:00:[address] 3.430.2.7 0.2.7.3.698 Ho spita .3.974509 084.8 l .8 2020-11-11 2020-11-11 [facility], 1.2.840.1 [id number] 3075 Methodi 11:26:15 12:44:45 Visit Karl 69448.1.[address] 3.430.2.7 Hospit a .3.809330 l .8 2020-11-11 2020-11-11 Travel 1.2.840.1 1.2.501.010 5292 646767 Methodi 00:00:00 00:00:[address] 3.430.2.7 0.2.7.3.698 Ho spita .3.438075 084.8 l .8 2020-11-10 2020-11-10 [facility], 1.2.840.1 [id number] 910554 9536 Methodi 00:00:00 00:00:00 Only Ayla 23077.1.[address] 3.430.2.7 Hospit a .3.060610 l .8 2020-11-09 2020-11-09 [facility], 1.2.840.1 [id number] 1112 Methodi 00:00:00 00:00:00 Only Ayla 38695.1.[address] 3.430.2.7 Hospit a .3.230038 l .8 2020-09-21 2020-10-13 Office [facility], 1.2.840.1 [id number] 824404 8875 Methodi 09:53:51 16:26:53 Visit Karl 40258.1.[address] 3.430.2.7 Hospit a .3.678036 l .8 2020-09-27 2020-09-27 [facility], 1.2.840.1 [id number] 41496 83376 Methodi 10:00:00 23:59:00 Encounter Karl 25831.1.[address] 3.430.2.7 Hospit a .3.047131 l .8 2020-09-27 2020-09-27 Travel 1.2.840.1 1.2.438.527 8139 697000 Methodi 00:00:00 00:00:[address] 3.430.2.7 0.2.7.3.698 Ho spita .3.270445 084.8 l .8 2020-08-31 2020-09-22 [facility], 1.2.840.1 [id number] 789188 8992 Methodi 09:51:14 00:45:44 Visit Karl 54443.1.[address] 3.430.2.7 Hospit a .3.082465 l .8 2020-09-22 2020-09-22 Refill [facility], 1.2.840.1 [id number] 422550 5632 Methodi 00:00:00 00:00:[address] 3.430.2.7 Hospit a .3.332012 l .8 2020-09-22 2020-09-22 Refill [facility], 1.2.840.1 [id number] 453243 6873 Methodi 00:00:00 00:00:[address] 3.430.2.7 Hospit a .3.904215 l .8 2020-09-22 2020-09-22 Refjoan Oakes, 1.2.840.1 [id number] 291608 9397 Methodi 00:00:00 00:00:[address] 3.430.2.7 Hospit a .3.047871 l .8 2020-09-21 2020-09-21 Travel 1.2.840.1 1.2.851.537 5029 105319 Methodi 00:00:00 00:00:[address] 3.430.2.7 0.2.7.3.698 Ho spita .3.696514 084.8 l .8 2020-09-01 2020-09-01 Telephone [facility] 1.2.840.1 [id number] Methodi 00:00:00 00:00:00 Fan blank 59577.1.[address] J 3.430.2.7 Hospit a .3.421899 l .8 2020-08-31 2020-08-31 Travel 1.2.840.1 1.2.061.884 4347 440590 Methodi 00:00:00 00:00:[address] 3.430.2.7 0.2.7.3.698 Ho spita .3.177317 084.8 l .8 2020-08-22 2020-08-22 Telephone Khoury, 1.2.840.1 [id number] 2099 713374 Methodi 00:00:00 00:00:[address] Catina Quiroz 12810.1.[address] 3.430.2.7 Hospit a .3.065594 l .8 2020-08-17 2020-08-17 Office Tavares Awan 1.2.840.1 104 804955 [id number] Methodi 13:08:55 13:23:55 Visit Alysa TrivediEma 71179.1.[address] 3.430.2.7 Hospit a .3.637440 l .8 2020-08-17 2020-08-17 Travel 1.2.840.1 1.2.278.511 2215 372368 Methodi 00:00:00 00:00:[address] 3.430.2.7 0.2.7.3.698 Ho spita .3.399480 084.8 l .8 2020-08-12 2020-08-12 Telephone Khoury, 1.2.840.1 [id number] Methodi 00:00:00 00:00:[address]503.1.[address] 3.430.2.7 Hospit a .3.658449 l .8 2020-08-03 2020-08-03 Telephone Annabelle, 1.2.840.1 [id number] 577 [id number] Methodi 00:00:00 00:00:[address] 3.430.2.7 Hospit a .3.753163 l .8 2020-07-21 2020-07-26 [facility] Shana Mendoza 1.2.840.1 1040 38414 [id number] Methodi 11:18:00 15:20:00 Encounter Chau Henry 59443.1.[address] [place] 3.430.2.7 Hospita .3.139168 l .8 2020-07-22 2020-07-22 Camryn Zarate 1.2.840.1 [id number] Methodi 00:00:00 00:00:[address] 3.430.2.7 Hospit a .3.359256 l .8 2020-07-21 2020-07-21 Travel 1.2.840.1 1.2.346.707 2419 244727 Methodi 00:00:00 00:00:[address] 3.430.2.7 0.2.7.3.698 Ho spita .3.010348 084.8 l .8 2020-06-15 2020-06-15 Office Doris VANESSALana 1.2.840.114 803 34203 [facility] 17:18:35 19:40:39 Visit Alhaji Miles AMBULATOR 350.1.13.21 [employer] 0.2.7.2.686 217.9133002 [facility] kat 300 e 2020-05-23 2020-05-23 Office Kenyon [facility] 1.2.840.114 816 51834 15:04:57 15:52:06 Visit Buck Cope MULTISPEC 350.1.13.10 IALTY 4.2.7.2.686 CENTER 350.8938075 [facility] Results Test Description Test Time Test Comments Results Result Comments Source SARS-CoV-2 (COVID-19) RNA [Presence] in Respiratory sp ecimen by 2021-06-01 05:47:20 KELTON with probe detection Test Item Value Reference Range Interpretation Comme nts SARS-CoV-2 (COVID-19) RNA [Presence] in Respiratory specimen by Not detected KELTON with probe detection (test code = 26850-6) Whether patient is employed in a healthcare setting (test code = Un known 05120-1) Whether the patient has symptoms related to condition of interest U nknown (test code = 97201-6) Whether the patient was hospitalized for condition of interest Unkn own (test code = 81852-5) Whether the patient was admitted to intensive care unit (ICU) for U nknown condition of interest (test code = 03609-0) Whether patient resides in a congregate care setting (test code = U nknown 26470-8) status (test code = 00009-0) Unknown Date and time of symptom onset (test code = 20578-1) Unknown Anaerobic [id number] 18:08:11 Test Item Value Reference Range Interpretation Comments Anaerobic No anaerobic Specimen culture isolate organisms InformationS pecimen (test code = isolated. Source: Periton eal 552) fluidSpecimen S ite: abdominal [facility] [id number] 23:36:50 Test Item Value Reference Range Interpretation Comments Aerobic culture No growth Specimen isolate (test after 3 days. InformationSp ecimen code = 498) Source: Periton eal fluidSpecimen S ite: abdominal [facility] (non-gynecological) [id number] 18:50:20 Test Item Value Reference Range Interpretation Comments Case number (test code = [id number]) Cytology See link below for (non-gynecological) PDF Lab Report report (test code = 1178) Result status (test code This is Final Report = [id number]) for [id number] [facility] [id number] 22:54:39 Test Item Value Reference Range Interpretation Comments Gram stain No WBC's or Specimen isolate (test organisms seen. Information Specimen code = 1469) Source: Periton eal fluidSpecimen S ite: abdominal [facility] HospitalCell count and differential, body [id number] 21:11:13 Test Item Value Reference Range Interpretation Comments [facility] fluid type Peritoneal (test code = 76990-0) Color, fluid (test Yellow code = 6824-7) Appearance, fluid Slightly hazy (test code = 9335-1) RBC, fluid (test SEE COMMENT See_Comment 1+ (0 - 500 code = 16054-8) RBC/CMM) [Automated message] The system which generated this result transmit niranjan reference range : /CMM. The reference range was not used to interpret this result as normal/abnormal . Nucleated cells, See_Comment [Automated fluid (test code = message] The 41018-9) system which generated this result transmit niranjan reference range : /CMM. The reference range was not used to interpret this result as normal/abnormal . Fluid mononuclear See Diff cell (test code = 1407) Neutrophils, fluid 17 % (test code = 93823-2) Lymphocytes, fluid 42 % (test code = 92245-7) Macrophages, fluid 40 % (test code = 19087-0) Plasma cells, fluid 1 % (test code = 19817-4) TOÑA (test code = peritoneal fluid TOÑA) [facility], misc [id number] 20:04:51 Test Item Value Reference Range Interpretation Comments Fluid type Peritoneal (test code = 92494-3) Albumin, 0.3 g/dL The reference fluid (test interval(s) and other code = method performa nce 1747-5) specifications have not been establishe d for this body fluid . The test results mu st be integrated into the clinical contex t for interpretation. This test has been m odified from the [facility] instructions. The performance characteristics were determined by Fuad chan in a manner consiste nt with CLIA requiremen ts. This test has n ot been cleared or appr jaida by the [place] Food a nd Drug Administration. TOÑA (test peritoneal fluid code = TOÑA) [facility] [id number] 20:04:51 Test Item Value Reference Range Interpretation Comments Fluid type Peritoneal (test code = 85885-1) LDH, fluid 35 U/L The reference (test code = interval(s) and other 24699-1) method performa nce specifications have not been establishe d for this body fluid . The test results mu st be integrated into the clinical contex t for interpretation. This test has been m odified from the [facility] instructions. The performance characteristics were determined by Fuad chan in a manner consiste nt with CLIA requiremen ts. This test has n ot been cleared or appr jaida by the [place] Food a nd Drug Administration. TOÑA (test peritoneal fluid code = TOÑA) [facility] [id number] 20:04:51 Test Item Value Reference Range Interpretation Comments Fluid type Peritoneal (test code = 27109-8) Protein, 0.8 g/dL The reference fluid (test interval(s) and other code = method performa nce 2881-1) specifications have not been establishe d for this body fluid . The test results mu st be integrated into the clinical contex t for interpretation. This test has been m odified from the [facility] instructions. The performance characteristics were determined by Fuad chan in a manner consiste nt with CLIA requiremen ts. This test has n ot been cleared or appr jaida by the [place] Food a nd Drug Administration. TOÑA (test peritoneal fluid code = TOÑA) [facility] [id number] 20:04:51 Test Item Value Reference Range Interpretation Comments Fluid type Peritoneal (test code = 25498-5) Triglyceride, 41 mg/dL The reference fluid (test interval(s) and other code = method performa nce 68265-9) specifications have not been establishe d for this body fluid . The test results mu st be integrated into the clinical contex t for interpretation. This test has been m odified from the [facility] [employer] instructions. The performance characteristics were determined by Fuad chan in a manner consiste nt with CLIA requiremen ts. This test has n ot been cleared or appr jaida by the [place] Food a nd Drug Administration. TOÑA (test peritoneal fluid code = TOÑA) [facility], [facility] [id number] 20:04:50 Test Item Value Reference Range Interpretation Comments Fluid type Peritoneal (test code = 75446-4) Amylase, 7 U/L The reference fluid (test interval(s) and other code = method performa nce 1795-4) specifications have not been establishe d for this body fluid . The test results mu st be integrated into the clinical contex t for interpretation. This test has been m odified from the [employer] instructions. The performance characteristics were determined by Fuad chan in a manner consiste nt with CLIA requiremen ts. This test has n ot been cleared or appr jaida by the [place]. Food a nd Drug Administration. TOÑA (test peritoneal fluid code = TOÑA) [facility] Hospital[facility]ung[facility] [id number] 06:15:57 Test Item Value Reference Range Interpretation Comments Fungus culture No growth Specimen isolate (test after 4 weeks InformationSp ecimen code = 1441) of Source: Ascites incubation. FluidSpecimen S ite: Not otherwise speci fied [facility] [id number] 19:33:31 Test Item Value Reference Range Interpretation Comments AFB stain No acid fast Specimen (test code = bacilli (AFB) InformationSpe [facility] 676-7) seen. Source: Ascites FluidSpecimen S ite: Not otherwise speci fied [facility] [id number] 19:01:58 Test Item Value Reference Range Interpretation Comments Fungus smear No fungi Specimen (test code = observed. InformationSpec imen Source: 7543) Ascites FluidSp ecimen Site: Not otherwise s pecified [facility] [id number] 22:02:18 Test Item Value Reference Range Interpretation Comments POC glucose (test code 189 mg/dL 65-99 H Opera tor Name: = 31338-8) Ronald Howell I D: [id number] able: [facility] Notified bend sorter Interpretation Abnormal (test code = 84392-1) [facility] 12 [id number] 23:31:23 Test Item Value Reference Range Interpretation [...] change in initial forces of Septal leads- [facility] Alliance[facility]atic function [id number] 09:42:00 Test Item Value Reference Range Interpretation Comments Protein (test code = 7.3 g/dL 6.1-8.1 2885-2) Albumin, S (test 2.8 g/dL 3.6-5.1 L code = 1751-7) Globulin, total See_Comment H [Automated (test code = message] The 73082-1) system which generated this result transmitted reference range : 1.9 - 3.7 g/dL (calc). The reference range was not used to interpret this result as normal/abnormal . Albumin/globulin See_Comment L [Automated ratio (test code = message] The 618) system which generated this result transmitted reference range : 1.0 - 2.5 (calc ). The reference range was not used to interpr et this result as normal/abnormal . Total bilirubin 1.1 mg/dL 0.2-1.2 (test code = 1974-) Bilirubin direct 0.3 mg/dL See_Comment H [Automated [...] ALT (test code = 14 U/L 9-46 1742-6) RAC (test code = Performing RAC) Organization Information: Site ID: RGA Name: [facility] Lab Address: [address] [place] [id number] Director: Shana Galicia Lab Interpretation Abnormal (test code = 28001-6) [facility] AllianceUrine [id number] 01:40:51 Test Item Value Reference Range Interpretation Comments Urine culture Mixed tremayne Specimen isolate (test <=10-3 col/cc InformationSp ecimen code = 53058-5) Source: Urin eSpecimen Site: [facility], [facility]/TOTAL [id number] 11:30:08 Test Item Value Reference Range Interpretation [...] se Indicated, All Testing Per formed At: [facility], [address] [place], [place] [id number] Laboratory Dire ctor: Jim rios M.D. CLI A Number [id number] 03 Cap Accreditati on No. Lab Interpretation Abnormal (test code = 49169-1) [id number] 11:28:20 Test Item Value Reference Range Interpretation Comments ESTRADIOL LEVEL 23.5 PG/ML See_Comment Note: Values in (test code = 2243-4) the ran ge of 17-25 PG/ML may demon strate increas ed imprecision. C linical correlation is recommended. Unless Otherwis e Indicated, All Testing Performed At: [facility], [address] [place] [address] Salon Professional: Jim Montes M.D. CLIA Number [id number] Cap Accreditati on No. [Auto mated message] The sy stem which generated this result transmit niranjan reference range : <=60.7. The ref erence range was not u sed to interpret this result as normal/abnor mal. [id number] 11:28:20 Test Item Value Reference Range Interpretation [...] Indic ated, All Testing Perform ed At: [facility], [address] [place], [place] [id number] 4 Laboratory Dire ctor: Jim Montes M.D. CLIA Number [id number] Cap Accreditation N o. [Automated mess age] The system which generated this result transmitted ref erence range: 4.0 - 26.0 NG/M L. The reference range was not u sed to interpret this result as normal/abnormal. [facility] + LH [id number] 11:28:20 Test Item Value Reference Range Interpretation Comments FOLLICLE STIMULATING See_Comment H [Autom ated message] HORMONE (test code = The sys tem which 92705-1) generated this result transmitted ref erence range: 1.5 - 12 .4 IU/L. The refer ence range was not u sed to interpret this result as normal/abnor mal. LUTEINIZING HORMONE See_Comment H Unless (test code = 23817-8) Otherw ise Indicated, All Testing Per formed At: [facility], [address] [place] [id number] Laboratory Dire ctor: Jim rios M.D. CLIA Num mag [id number] Cap Accreditation N o. [id number] [Auto mated message] The sy stem which generated this result transmit niranjan reference range : 1.2 - 8.6 IU/L. The reference range was not used to int erpret this result as normal/abnormal . Lab Interpretation Abnormal (test code = 72272-1) [facility]IP[facility] [id number] 10:19:48 Test Item Value Reference Range Interpretation Comments CHOLESTEROL (test code See_Comment [Aut omated message] = 2093-3) The system [facility] h generated this result transmitted ref erence range: <200 MG/ DL. The reference range was not used to int erpret this result as normal/abnormal . TRIGLYCERIDES (test See_Comment [Automa niranjan message] code = 2571-8) The system [facility] generated this result transmitted ref erence range: <150 MG/ DL. The reference range was not used to int erpret this result as normal/abnormal . HDL CHOLESTEROL (test See_Comment L [Auto mated message] code = 2085-9) The system [employer] generated this result transmitted ref erence range: >39 MG/D L. The reference range was not used to int erpret this result as normal/abnormal . LDL CHOLESTEROL See_Comment NOTE: CALCU LATED LDL CALCULATED (test code = [place] [address]-8) AAYUSH-HAUSER METHOD WHICHINCLUDES ADJUSTABLE TRIGLYCERIDE:VL DL CHOLESTEROL RAT IO.THIS FACTOR VARIES B Y MEASURED TRIGLY CERIDE AND NON-HDLCHOL ESTEROL CONCENTRATIONS WITH INCREASED CALCU LATED LDL SEENIN HIGH ER TRIGLYCERIDE OR LOWER NON-HDL SPECIME NS. FOR MOREINFORMATION , SEE CLIENT ANNOUNCE MENT AT [email or web address] [Automated mess age] The system [employer] generated this result transmitted ref erence range: <100 MG/ DL. The reference range was not used to int erpret this result as normal/abnormal . LDL/HDL RATIO, SERUM See_Comment Unless (test code = 32481-7) Otherw ise Indicated, All Testing Per formed At: [facility], [address] [place] [address] Laboratory Dire ctor: Jim rios M.D. CLIA Num mag [id number] Cap Accreditation N o. [id number] [Auto mated message] The sy stem which generated this result transmit niranjan reference range : <3.55 RATIO. The refe rence range was not u sed to interpret this result as normal/abnor mal. Lab Interpretation Abnormal (test code = 00281-9) [id number] 06:55:01 Test Item Value Reference Range Interpretation Comments HEMATOCRIT (test code = 34.8 % 40.0-51.0 L Unless ) Otherwise Indic ated, All Testing Per formed At: [facility], [address] [place] [address] Laboratory Dire ctor: Jim rios M.D. CLIA Num mag [id number] Cap Accreditation N o. [id number] Lab Interpretation Abnormal (test code = 55370-6) [facility]2019-08-29 09:44:00 Test Item Value Reference Range Interpretation Comments SARS-COV2/RT-PCR (test code = Positive Not Detected, Negative A A [id number]) SARS-COV-2 PERFORMING LAB [facility] (test code = 6583405) Results are for the detection of SARS-CoV-2 [...] 564(g) of the Act.Fact Sheet for Healthcare Providers:https://www.quCnano [employer].com/sites/default/files/product/d ocuments/Tcvg_Xxhwo_BI_Eyqwwsgce_Sxsa_JEUC-StI-9.pdfFact Sheet for Healthcare Patients:https://www.[employer]/sites/default/files/product/documents/Fact_Sheet_Patients_Lyra_SARS-CoV -2.pdfPerforming Laboratory:[facility] [place] [address]
[2021-06-17 01:56] LABS: Urine Blood Negative (Negative); Urine Glucose Negative (Negative); Urine Protein Negative (Negative); Urine Specific Gravity 1.025 (1.005-1.030); Urine pH 5.5 (5.0-7.0)
[2021-06-17] MEDS ORDERED: MORPHINE 2 MG/ML SYR ONE (02:03)
[2021-06-17 02:38] LABS: Urine Bacteria 20-50 /HPF (NONE SEEN); Urine Mucus 1+ /HPF (NONE SEEN); Urine RBC <5 /HPF (NONE SEEN)
--- NOTE | 2021-06-17 03:06 | EDPHYS ---
Physician Documentation [facility] Name: Tacho Lundy Age: 76 yrs Sex: Male : 1945 Arrival Date: 06/16/2021 Time: 22:23 Bed 18 Private MD: ED Physician Raymundo Nicholas HPI: 06/16 22:49 This 76 yrs old Unknown Male presents to ER via Unassigned with complaints of Pain All rn Over, abd pain, vomiting. 22:49 The patient presents with abdominal pain that is diffuse. Onset: The symptoms/episode rn began/occurred at an unknown time. The symptoms do not radiate. Associated signs and symptoms: Pertinent positives: nausea and vomiting, Pertinent negatives: blood in stools, chest pain, constipation, fever, shortness of breath, testicular pain, vomiting blood. The symptoms are described as achy, crampy. Modifying factors: The symptoms are alleviated by nothing, the symptoms are aggravated by movement, touching the area. Severity of pain: At its worst the pain was moderate in the emergency department the pain is unchanged. The patient has experienced similar episodes in the past. The patient has been recently seen by a physician: The patient has been recently been admitted at [facility]. Pt reports abd pain, nausea, vomiting, weak all over. Recently admitted for similar symptoms with acute kidney failure. Denies blood in emesis or stool. . Historical: - Allergies: 23:03 Vancomycin; ag7 - Home Meds: 06/17 02:35 amlodipine 10 mg tab 1 tab once daily [Active]; Aspirin Oral [Active]; atorvastatin ag7 oral [Active]; carvedilol 12.5 mg Oral tab 1 tab 2 times per day [Active]; Lovenox Sub-Q [Active]; Lantus Sub-Q [Active]; Admelog U-100 Insulin lispro subcutaneous [Active]; Lactulose Oral [Active]; pantoprazole 40 mg Oral TbEC 1 tab once daily [Active]; Rozerem oral [Active]; - PMHx: 06/16 23:03 back surgery; Chronic pain; cirrhosis of liver; cirrhosis of liver; Diabetes - IDDM; ag7 Hernia; Hypertension; - PSHx: 23:03 None; ag7 - Immunization history:: Adult Immunizations up to date, Client reports receiving the 2nd dose of the Covid vaccine, Flu vaccine is up to date. - Family history:: not pertinent. - Social history:: Smoking status: Patient denies any tobacco usage or history of. - Hospitalizations: : The patient was recently seen at [facility]. ROS: 22:49 Constitutional: Negative for fever, chills, and weight loss, Eyes: Negative for injury, rn pain, redness, and discharge, Neck: Negative for injury, pain, and swelling, Cardiovascular: Negative for chest pain, palpitations, and edema, Respiratory: Negative for shortness of breath, cough, wheezing, and pleuritic chest pain, Abdomen/GI: + abd pain/nausea/vomiting Back: Negative for injury and pain, : Negative for injury, bleeding, discharge, and swelling, MS/Extremity: Negative for injury and deformity, Skin: Negative for injury, rash, and discoloration, Neuro: Negative for headache, numbness, tingling, and seizure. Exam: 22:49 Constitutional: Thin male, appears frail and weak Head/Face: Normocephalic, rn atraumatic. Eyes: Periorbital areas with no swelling, redness, or edema. ENT: dry MM with dry emesis around mouth Cardiovascular: Tachycardic, regular. No pulse deficits. Respiratory: Speaking full sentences, unlabored. No increased work of breathing, no retractions or nasal flaring. Abdomen/GI: soft, + tender in all 4 quadrants, non-distended, bruising from suspected recent pericentesis. Skin: Warm, dry MS/ Extremity: Pulses equal, no cyanosis. Neuro: Awake and alert, GCS 15 Vital Signs: 22:16 BP 139 / 71; Pulse 67; Resp 16 S; Temp 98.1(O); Pulse Ox 99% on R/A; Weight 83.91 kg; ag7 Height 5 ft. 9 in. (175.26 cm); Pain 5/10; 23:34 BP 133 / 50; Pulse 83; Resp 16 S; Pulse Ox 100% on R/A; Pain 8/10; ag7 04/16 00:53 BP 161 / 128; Pulse 92; Resp 16 S; Pulse Ox 100% on R/A; Pain 8/10; ag7 01:00 BP 160 / 80; Pulse 94; Resp 16 S; Pulse Ox 99% ; Pain 8/10; ag7 02:01 BP 145 / 63; Pulse 93; Resp 16 S; Pulse Ox 100% on R/A; Pain 10/10; ag7 02:54 Pain 9/10; ag7 06/16 22:16 Body Mass Index 27.32 (83.91 kg, 175.26 cm) ag7 MDM: 06/16 22:23 Patient medically screened. rn 22:45 ED course: Orders not crossing over, in downtime, possible delay in care. rn 06/17 01:29 Differential diagnosis: bowel obstruction, non-specific abd pain, Peritonitis, rn Prostatitis, urinary tract infection, viral syndrome. Data reviewed: vital signs, nurses notes, lab test result(s), and as a result, I will admit patient. Counseling: I had a detailed discussion with the patient and/or guardian regarding: the historical points, exam findings, and any diagnostic results supporting the discharge/admit diagnosis, lab results, the need for further work-up and treatment in the hospital. Response to treatment: the patient's symptoms have mildly improved after treatment. 01:29 Admission orders: after a detailed discussion of the patient's condition and case, the airborne operations orders are written by me. 01:29 ED course: Pt with elevated lactate.. rn 06/16 22:25 Order name: CBC with Diff rn 06/16 22:25 Order name: CMP rn 06/16 22:25 Order name: Lipase rn 06/16 22:25 Order name: Urine Microscopic Only rn 06/16 22:25 Order name: Blood Culture Adult (2) rn 06/16 22:25 Order name: Lactate rn 06/16 22:25 Order name: CT Abd/Pelvis - Without Contrast rn 06/17 03:06 Order name: Abdomen [facility] 06/17 03:06 Order name: Urine Dipstick-Ancillary [facility] 06/17 03:06 Order name: Urine Microscopic Only [facility] 06/16 22:25 Order name: IV Saline Lock; Complete Time: 00:44 rn 06/16 22:25 Order name: Labs collected and sent; Complete Time: 00:44 rn Administered Medications: 00:25 Drug: Zofran (Ondansetron) 4 mg Route: IVP; Site: right antecubital; ke1 01:00 Follow up: Response: No adverse reaction 7 00:25 Drug: NS 0.9% 500 ml Route: IV; Rate: bolus; Site: right antecubital; ke1 01:25 Follow up: IV Status: Completed infusion; IV Intake: 500ml ag7 02:11 Drug: morphine 2 mg {Note: rass 1.} Route: IVP; Site: right antecubital; ag7 02:54 Follow up: Pain 9/10 Adult; Response: No adverse reaction; No change in condition ag7 02:11 Drug: NS 0.9% 500 ml Route: IV; Rate: bolus; Site: right antecubital; ag7 02:54 Follow up: IV Status: Completed infusion; IV Intake: 500ml ag7 Disposition Summary: 06/17/21 01:32 Hospitalization Ordered Hospitalization Status: Observation rn Provider: Angel Nicholas rn Location: Telemetry/MedSurg (observation) rn Condition: Stable rn Problem: new rn Symptoms: have improved rn Bed/Room Type: Standard rn Room Assignment: [facility](06/17/21 02:11) cg Diagnosis - Abdominal pain, unspecified rn - Muscle weakness (generalized) rn - Dehydration rn Forms: - Medication Reconciliation Form rn - SBAR form rn Signatures: Dispatcher [employer] EDRaymundo Cordon MD MD rn Garcia, Cindy, RN RN Myesha Bennett Kouassi RN RN ke1 Jessy Estrada RN RN ag7 Corrections: (The following items were deleted from the chart) 02:11 01:32 rn cg
--- NOTE | 2021-06-17 03:07 | ER ---
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 22:16 Method Of Arrival: EMS: [facility] ag7 22:16 Coronavirus screen: Client denies travel out of the [place] in the last 14 days. At this ag7 time, the client does not indicate any symptoms associated with coronavirus-19. Ebola Screen: Patient negative for fever greater than or equal to 101.5 degrees Fahrenheit, and additional compatible Ebola Virus Disease symptoms Patient denies exposure to infectious person. Patient denies travel to an Ebola-affected area in the 21 days before illness onset. Initial Sepsis Screen: Does the patient meet any 2 criteria? No. Patient's initial sepsis screen is negative. Does the patient have a suspected source of infection? No. Patient's initial sepsis screen is negative. Risk Assessment: Do you want to hurt yourself or someone else? Patient reports no desire to harm self or others. Onset of symptoms was June 16, 2021. 22:16 Acuity: CORRY 3 ag7 Historical: - Allergies: 23:03 Vancomycin; ag7 - Home Meds: 06/17 02:35 amlodipine 10 mg tab 1 tab once daily [Active]; Aspirin Oral [Active]; atorvastatin ag7 oral [Active]; carvedilol 12.5 mg Oral tab 1 tab 2 times per day [Active]; Lovenox Sub-Q [Active]; Lantus Sub-Q [Active]; Admelog U-100 Insulin lispro subcutaneous [Active]; Lactulose Oral [Active]; pantoprazole 40 mg Oral TbEC 1 tab once daily [Active]; Rozerem oral [Active]; - PMHx: 06/16 23:03 back surgery; Chronic pain; cirrhosis of liver; cirrhosis of liver; Diabetes - IDDM; ag7 Hernia; Hypertension; - PSHx: 23:03 None; ag7 - Immunization history:: Adult Immunizations up to date, Client reports receiving the 2nd dose of the Covid vaccine, Flu vaccine is up to date. - Family history:: not pertinent. - Social history:: Smoking status: Patient denies any tobacco usage or history of. - Hospitalizations: : The patient was recently seen at [facility]. Screenin:02 Abuse screen: Denies threats or abuse. Nutritional screening: No deficits noted. ag7 Tuberculosis screening: No symptoms or risk factors identified. Fall Risk No fall in past 12 months (0 pts). Secondary diagnosis (15 points) No IV (0 pts). Ambulatory Aid- None/Bed Rest/Nurse Assist (0 pts). Gait- Weak (10 pts.). Mental Status- Oriented to own ability (0 pts). Total Horton Fall Scale indicates Low Risk Score (25-44 pts). Fall prevention measures have been instituted. Placed close to Nursing Station Frequent Obs/Assesments occuring As available Patient and Family Educated on Fall Prevention Program and strategies. Assessment: 22:16 General: Appears in no apparent distress. uncomfortable, slender, Behavior is ag7 cooperative, appropriate for age, crying. Pain: Complains of pain in abdomen Pain does not radiate. Pain currently is 5 out of 10 on a pain scale. Quality of pain is described as aching, Pain began suddenly, Is continuous. 22:16 Neuro: Level of Consciousness is awake, alert, obeys commands, Oriented to person, ag7 place, situation, Appropriate for age Returns Clerk are equal bilaterally weak bilaterally. Cardiovascular: Heart tones present irregular. Capillary refill < 3 seconds Patient's skin is warm and dry. Respiratory: Airway is patent Trachea midline Respiratory effort is even, unlabored, Respiratory pattern is regular, symmetrical, Breath sounds are clear bilaterally. GI: Abdomen is flat, Bowel sounds present X 4 quads. Reports lower abdominal pain, upper abdominal pain. 23:16 Reassessment: No changes from previously documented assessment. ag7 06/17 00:16 Reassessment: No changes from previously documented assessment. Patient and/or family ag7 updated on plan of care and expected duration. Pain level reassessed. Patient is alert, oriented x 3, equal unlabored respirations, skin warm/dry/pink. 01:16 Reassessment: No changes from previously documented assessment. Patient and/or family ag7 updated on plan of care and expected duration. Pain level reassessed. 02:16 Reassessment: No changes from previously documented assessment. Patient c/o pain 10/10 ag7 to abdomen, constant, acute. 02:59 Reassessment: pending f/u for report to Chandrika [facility] RM 217. ag7 Vital Signs: 06/16 22:16 BP 139 / 71; Pulse 67; Resp 16 S; Temp 98.1(O); Pulse Ox 99% on R/A; Weight 83.91 kg; ag7 Height 5 ft. 9 in. (175.26 cm); Pain 5/10; 23:34 BP 133 / 50; Pulse 83; Resp 16 S; Pulse Ox 100% on R/A; Pain 8/10; ag7 04 00:53 BP 161 / 128; Pulse 92; Resp 16 S; Pulse Ox 100% on R/A; Pain 8/10; ag7 01:00 BP 160 / 80; Pulse 94; Resp 16 S; Pulse Ox 99% ; Pain 8/10; ag7 02:01 BP 145 / 63; Pulse 93; Resp 16 S; Pulse Ox 100% on R/A; Pain 10/10; ag7 02:54 Pain 9/10; ag7 04 22:16 Body Mass Index 27.32 (83.91 kg, 175.26 cm) ag7 ED Course: 06/16 22:23 Patient arrived in ED. cs9 22:23 Raymundo Nicholas MD is Attending Physician. rn 22:28 Jessy Estrada, CINDY is Primary Nurse. ag7 22:59 Triage completed. ag7 23:00 Arm band placed on right wrist. ag7 23:03 Patient has correct armband on for positive identification. Bed in low position. Call ag7 light in reach. Side rails up X 1. 23:03 No provider procedures requiring assistance completed. ag7 23:26 Missed attempt(s): 20 gauge in right antecubital area. 22 gauge in right forearm. ag7 Bleeding controlled, band aid applied, catheter tip intact. 06/17 01:10 Inserted saline lock: 20 gauge in right antecubital area, using aseptic technique. ag7 ,using aseptic technique. initiated by internal med Blood collected. 01:32 Angel Nicholas MD is Hospitalizing Provider. rn 03:06 Abdomen In Process Unspecified. bp1 03:06 Abdomen In Process Unspecified. bp1 03:06 Abdomen In Process Unspecified. bp1 03:06 Abdomen In Process Unspecified. bp1 03:06 Abdomen In Process Unspecified. bp1 03:06 Abdomen In Process Unspecified. bp1 03:06 Abdomen In Process Unspecified. bp1 03:06 Abdomen In Process Unspecified. bp1 03:06 Abdomen In Process Unspecified. bp1 03:06 Abdomen In Process Unspecified. bp1 03:06 Abdomen In Process Unspecified. bp1 03:06 Abdomen In Process Unspecified. bp1 03:06 Abdomen In Process Unspecified. bp1 03:06 Abdomen In Process Unspecified. bp1 03:06 Abdomen In Process Unspecified. bp1 03:06 Abdomen In Process Unspecified. bp1 03:06 Abdomen In Process Unspecified. bp1 03:06 Abdomen In Process Unspecified. bp1 03:06 Abdomen In Process Unspecified. bp1 03:12 Patient admitted, IV remains in place. ag7 Administered Medications: 00:25 Drug: Zofran (Ondansetron) 4 mg Route: IVP; Site: right antecubital; ke1 01:00 Follow up: Response: No adverse reaction ag7 00:25 Drug: NS 0.9% 500 ml Route: IV; Rate: bolus; Site: right antecubital; ke1 01:25 Follow up: IV Status: Completed infusion; IV Intake: 500ml ag7 02:11 Drug: morphine 2 mg {Note: rass 1.} Route: IVP; Site: right antecubital; ag7 02:54 Follow up: Pain 9/10 Adult; Response: No adverse reaction; No change in condition ag7 02:11 Drug: NS 0.9% 500 ml Route: IV; Rate: bolus; Site: right antecubital; ag7 02:54 Follow up: IV Status: Completed infusion; IV Intake: 500ml ag7 Intake: 01:25 IV: 500ml; Total: 500ml. ag7 02:54 IV: 500ml; Total: 1000ml. ag7 Outcome: 01:32 Decision to Hospitalize by Provider. rn 03:10 Admitted to Med/surg accompanied by tech, room 217, with chart, Report called to Chandrika gonzalez RN 03:10 Condition: stable 03:10 Discharge instructions given to 03:25 Patient left the ED. ag7 Signatures: Raymundo Nicholas MD MD rn Myesha Jones [address], [place] 9 Gita Cedillo RN RN ke1 Jessy Estrada RN RN ag7
--- NOTE | 2021-06-17 03:23 | P.HP ---
Certification for Inpatient Patient admitted to: Observation With expected LOS: <2 Midnights Patient will require the following post-hospital care: None Practitioner: I am a practitioner with admitting privileges, knowledge of patient current condition, hospital course, and medical plan of care. Services: Services provided to patient in accordance with Admission requirements found in Title 42 Section 412.3 of the Code of Federal Regulations <Pineda Diaz - Last Filed: 06/17/21 03:15> Patient History Date of Service: 06/17/21 Reason for admission: Vomiting, dehydration, abdominal pain History of Present Illness: 76-year-old male with history of cirrhosis liver secondary to alcohol abuse, diabetes type 2insulin-dependent, CKD 3 presents emergency department for generalized pain, nausea, vomiting. Patient reports that he had a paracentesis on Saturday the for the past day has had generalized abd ominal pain with nausea and vomiting. Patient was evaluated in the emergency department his labs were significant for mild lactic acidosis, thrombocytopenia, stable CKD 3. Patient still feeling unwell with nausea, continued generalized abdominal pain. CT was negative for acute findings ED provider wishes to admit to observation for hydration. - Past Medical/Surgical History Diabetic: Yes -: CAD s/p Stent/ CABG -: DM -: HTN -: Cirrhosis -: CAD -: Alcoholic cirrhosis of the liver -: CKD 3/ Dr. Frazier -: CABG -: Laminectomy -: Back sx -: Skin cancer sx -: hemorrhoidectomy Psychosocial/ Personal History: Patient lives at home with his debilitated - Family History Father -: Heart disease Mother -: Heart disease Notes: [place] - Social History Alcohol use: No CD- Drugs: No Caffeine use: Yes Place of Residence: Home <Pineda Diaz - Last Filed: 06/17/21 03:15> Date of Service: 06/17/21 <Angel Nicholas - Last Filed: 06/17/21 19:30> Allergies vancomycin Allergy (Verified 06/17/21 04:00) Itching/Hives/Rash Home Medications: Ezetimibe [Zetia*] 10 mg PO DAILY 05/23/18 Magnesium Oxide [Mag 0X*] 400 mg PO BID 05/23/18 Furosemide [Lasix*] 20 mg PO DAILY 06/26/18 Simvastatin 40 mg PO BEDTIME 06/26/18 Aspirin 81 mg PO DAILY 06/09/19 Carvedilol [Coreg] 12.5 mg PO BID 06/09/19 Glucerna Shake [Glucerna*] 237 ml PO TID #90 can 06/11/19 Amlodipine Besylate [Norvasc] 10 mg PO DAILY #30 tablet 08/30/19 Folic Acid 1 mg PO DAILY #90 tablet 12/01/20 Insulin Detemir [Levemir] 5 units SQ BEDTIME #1 bottle 12/01/20 Pantoprazole Sodium [Protonix] 40 mg PO DAILY #30 tablet. 12/01/20 Sucralfate [Carafate*] 1 gm PO ACHS #90 tab 12/01/20 Thiamine HCl [Vitamin B-1*] 100 mg PO DAILY #90 tablet 12/01/20 Ondansetron [Zofran] 4 mg PO Q6H PRN #10 tab 05/30/21 Review of Systems 10-point ROS is otherwise unremarkable General: Malaise Gastrointestinal: Nausea, Vomiting, Abdominal Pain <Pineda Diaz - Last Filed: 06/17/21 03:15> Physical Examination - Physical Exam General: Alert, In no apparent distress, Oriented x3 HEENT: Atraumatic, PERRLA, Mucous membr. moist/pink, EOMI, Sclerae nonicteric Neck: Supple, 2+ carotid pulse no bruit, No LAD, Without JVD or thyroid abnormality Respiratory: Clear to auscultation bilaterally, Normal air movement Cardiovascular: Regular rate/rhythm, Normal S1 S2 Capillary refill: <2 Seconds Gastrointestinal: Normal bowel sounds, Soft and benign, No tenderness Musculoskeletal: No tenderness Integumentary: No rashes Neurological: Normal speech, Normal strength at 5/5 x4 extr, Normal tone, Normal affect <Pineda Diaz - Last Filed: 06/17/21 03:15> - Studies Laboratory Data (last 24 hrs) 06/17/21 05:10: Total Bilirubin 2.8 H, AST 64 H, ALT 27, Alkaline Phosphatase 252 H 06/17/21 05:10: Sodium 138, Potassium 5.0, BUN 50 H, Creatinine 1.58 H, Glucose 162 H 06/17/21 05:10: WBC 4.6, Hgb 10.6 L, Hct 30.8 L, Plt Count 71 L 06/16/21 23:39: Sodium 137, Potassium 5.0, BUN 48 H, Creatinine 1.60 H, Glucose 155 H, Total Bilirubin 2.8 H, AST 74 H, ALT 29, Alkaline Phosphatase 292 H, Lipase 74 06/16/21 23:37: WBC 4.7, Hgb 11.9 L, Hct 35.3 L, Plt Count 69 L Microbiology Data (last 24 hrs): 06/16/21 23:39 Blood - Blood Anaerobic Blood Culture - Final <Angel Nicholas - Last Filed: 06/17/21 19:30> Assessment and Plan - Plan Assessment: Vomiting, dehydration, abdominal tenderness Lactic acidosis Alcoholic cirrhosis of liver thrombocytopenia CKD 3 Diabetes mellitus type 2insulin-dependent Hypertension Plan: Vomiting, dehydration, abdominal tenderness: Continue gentle hydration, clear liquid diet advance as tolerated, as needed antiemetics. CT negative for acute findings. Improving. Lactic acidosis: Initial lactate 2.8, repeat currently pending. Doubt sepsis WBC normal no source of infection although patient did have paracentesis On the . More likely related to dehydration. Alcoholic cirrhosis of liver thrombocytopenia: Hold Lovenox/heparin CKD 3: Stable continue IV fluids Diabetes mellitus type 2insulin-dependent: ACH S Accu-Cheks Riss Hypertension: Continue home meds DVT PPX: SCD Code status: Full Discharge Plan: Home Plan to discharge in: 24 Hours - Advance Directives Does patient have a Living Will: No Does patient have a Durable POA for Healthcare: Yes - Code Status/Comfort Care Code Status Assessed: Yes (Full code) Critical Care: No Time Spent Managing Pts Care (In Minutes): 55 <Pineda Diaz - Last Filed: 06/17/21 03:15> - Plan Patient seen and examined this morning. Reports feeling much better, still feels tired, generalized weak, Agree with plan of care as noted above abdominal tenderness, states mostly at RLQ/hernia which he states hurts intermittently, afebrile, no leukocytosis, do not suspect SBP, however low threshold for treatment. Lactate improved, monitor for fever <Angel Nicholas - Last Filed: 06/17/21 19:30>
[2021-06-17] MEDS ORDERED: D50W 25 GM/50 ML SYRINGE IV PRN (03:30)
[2021-06-17] MEDS ORDERED: GLUCAGON 1 MG/VIAL IM PRN (03:30)
[2021-06-17 03:31] LABS: Absolute Lymphocytes (CBC) 0.8 K/uL (0.7-4.9); Hematocrit 35.3 % (39.6-49.0); MPV 9.7 fL (7.6-11.3); RBC Red Blood Cell Count 3.67 M/uL (4.33-5.43)
[2021-06-17 03:34] LABS: Albumin 2.7 g/dL (3.4-5.0); Bilirubin Total 2.8 mg/dL (0.2-1.0); Protein, Total 7.7 g/dL (6.4-8.2)
[2021-06-17 03:41] LABS: SARS-COV-2 RT PCR NEGATIVE (NEGATIVE)
[2021-06-17] MEDS: NA CHLORIDE 0.9% 1,000 ML IV SCH ×3 (03:57→23:48)
[2021-06-17 04:00] VITALS: BMI 20.5
[2021-06-17 05:57] LABS: Absolute Lymphocytes (CBC) 0.7 K/uL (0.7-4.9); Hematocrit 30.8 % (39.6-49.0); Lymphocytes % 15.2 % (15.3-44.8); MPV 9.6 fL (7.6-11.3)
[2021-06-17 07:14] LABS: Albumin 2.4 g/dL (3.4-5.0); Bilirubin Direct 1.3 mg/dL (0-0.2); Bilirubin Total 2.8 mg/dL (0.2-1.0); Protein, Total 6.8 g/dL (6.4-8.2)
[2021-06-17] MEDS: INSULIN -REGULAR HUMAN 50 UNIT/0.5 ML ML SQ SCH ×4 (07:30→21:00)
[2021-06-17 07:58] LABS: Blood Morphology Comment NOT SEEN (NOT SEEN); Platelet Estimate DECR
--- NOTE | 2021-06-17 09:37 | RAD REPORT ---
EXAM DESCRIPTION: CT - Abdomen Pelvis Wo Contrast - 06/17/2021 5:02 am CLINICAL HISTORY: 76 years, Male, PAIN COMPARISON: 05/30/2021 TECHNIQUE: Multiple transaxial tomograms of the abdomen and pelvis were performed from the lung base s to the symphysis pubis 5 mm slice thickness at 5 mm interval reconstruction, without administration of IV and oral contrast. Multiplanar reformats in the sagittal and coronal plane were generated and reviewed. This exam was performed according to our departmental dose-optimization protocol, which includes auto mated exposure control, adjustment of the mA and/or kV according to patient size and/or use of iterat ajay reconstruction technique. FINDINGS: The lack of IV and oral contrast limits evaluation of solid organs, subtle lesions cannot be excluded. The lung bases demonstrate small right pleural effusion with compressive atelectatic changes. Moderat e to large size hiatal hernia. Calcified granuloma left posterior CP angle. Coronary artery calcifica tions. Moderate amount of ascites. Nodular surface of the liver corresponding to cirrhosis. Cholelithiasis. Grossly the unopacified pancreas is fatty replaced. Grossly the spleen and adrenal glands demonstrate to be within normal limits, no significant focal le sions were identified. The kidneys demonstrate grossly unremarkable. There is no evidence for nephrolithiasis and/or hydro nephrosis. Grossly the unopacified stomach, small bowel and large bowel demonstrate to be unremarkable. There is no significant bowel dilatation and/or free air. The urinary bladder demonstrate to be within normal limits. The prostate gland is unremarkable. The a cyndie demonstrate atherosclerotic disease extending into the iliac arteries. There is no retroperito maria eugenia lymphadenopathy. The bone windows demonstrate diffuse bony osteopenia. Posterior transpedicular fusion/instrumentation L2-L4. IMPRESSION: Nodular surface of the liver corresponding to cirrhosis. Moderate amount of ascites. Cholelithiasis. Moderate to large size hiatal hernia. Small right pleural effusion with compressive atelectatic changes. Diffuse bony osteopenia. Posterior transpedicular fusion/instrumentation L2-L4. No significant interval change in comparison w ith 05/30/2021. Electronically signed by: Kody Quinteros MD 06/17/2021 2:44 AM CDT Due to temporary technical issues with the PACS/Fluency reporting system, reports are being signed by the in house radiologists without review as a courtesy to insure prompt reporting. The interpreting radiologist is fully responsible for the content of the report.
[2021-06-17] MEDS: ONDANSETRON 4 MG/2 ML VIAL IV PRN (10:31)
[2021-06-17] MEDS: MORPHINE 2 MG/ML SYR IV PRN (10:31)
[2021-06-18] MEDS: MORPHINE 2 MG/ML SYR IV PRN ×3 (00:39→18:00)
--- NOTE | 2021-06-18 06:23 | P.PN ---
Date of Service: 06/18/21 Subjective: no acute events overnight patient feels he is improving still with some abd discomfort, unable to pinpoint where today intermittent confusion feels tired/weak afebrile ROS: 10 point ROS as noted above, otherwise negative Physical exam GEN: Alert, oriented, fatigued appearing, slow to answer CV: Regular rate and rhythm, no edema Pulm: Non-labored respirations on room air, diminished at bases bilaterally ABD: Soft, mild tenderness in RLQ, +moderate ascites Integumentary: No rashes Neuro: moves all extremities, slow to answer but appropriate Problem List Vomiting, dehydration, abdominal tenderness Lactic acidosis Alcoholic cirrhosis of liver with thrombocytopenia CKD 3 Diabetes mellitus type 2insulin-dependent Hypertension Improved with IV fluids, feeling better, renal function improved Advance diet Patient's abdominal pain/discomfort seems to change diet today, remains afebrile, no peritoneal signs We will empirically cover for SBP with Rocephin Consulted GI, recommended diagnostic and therapeutic tap tomorrow, fluid analysis ordered DC IV fluids [employer] reviewed, patient receives [place] twice daily, will restart VTE: SCD Code: Full Dispo: Home with aide, ~2 days Time Spent Managing Pts Care (In Minutes): 35 Patient's PCP to return tomorrow, will sign out to him later tonight.
[2021-06-18 06:43] LABS: Absolute Lymphocytes (CBC) 0.5 K/uL (0.7-4.9); Lymphocytes % 17.5 % (15.3-44.8); MPV 8.6 fL (7.6-11.3); RBC Red Blood Cell Count 2.85 M/uL (4.33-5.43)
[2021-06-18 07:08] LABS: Bilirubin Total 2.1 mg/dL (0.2-1.0); Potassium 4.2 mmol/L (3.5-5.1); Protein, Total 5.9 g/dL (6.4-8.2)
[2021-06-18] MEDS: INSULIN -REGULAR HUMAN 50 UNIT/0.5 ML ML SQ SCH ×4 (07:30→22:25)
[2021-06-18] MEDS ORDERED: TRAMADOL HCL 50 MG TAB PO PRN (10:14)
[2021-06-18] MEDS: NA CHLORIDE 0.9% 1,000 ML IV SCH ×3 (12:08→23:40)
[2021-06-18] MEDS: HYDROCODONE/APAP 5/325 MG TAB PO PRN (12:08)
[2021-06-18] MEDS: CEFTRIAXONE 2,000 MG in NA CHLORIDE 0.9% 100 ML IV SCH (12:08)
[2021-06-18] MEDS: DOCUSATE NA 100 MG CAP PO SCH (22:25)
[2021-06-18] MEDS: LACTULOSE 20 GM/30 ML UCUP PO SCH (22:25)
[2021-06-19] MEDS: HYDROCODONE/APAP 5/325 MG TAB PO PRN ×3 (04:10→23:07)
[2021-06-19] MEDS: NA CHLORIDE 0.9% 1,000 ML IV SCH ×2 (05:30→13:59)
[2021-06-19 06:04] LABS: Absolute Lymphocytes (CBC) 0.4 K/uL (0.7-4.9); Hematocrit 29.6 % (39.6-49.0); Lymphocytes % 9.9 % (15.3-44.8); MPV 9.3 fL (7.6-11.3)
[2021-06-19 06:21] LABS: Bilirubin Total 2.2 mg/dL (0.2-1.0); Potassium 4.1 mmol/L (3.5-5.1)
[2021-06-19] MEDS: INSULIN -REGULAR HUMAN 50 UNIT/0.5 ML ML SQ SCH ×4 (07:30→20:25)
--- NOTE | 2021-06-19 07:49 | CON ---
Date of Consultation: 06/18/2021 Reason For Consultation: Nausea, vomiting, midepigastric pain. History Of Present Illness: The patient is a 76-year-old white male with history of cirrhosis of the liver and ascites with every week paracentesis. The patient presented to the hospital with nausea, vomiting, midepigastric pain. The patient states he has taken care of in [place] by [facility] there for his chronic liver disease with cirrhosis and ascites. He has had paracentesis few weeks. As per chart review, the patient appears to have hepatic encephalopathy. He is confused at rest and does not remember family history very well nor social history much since he has no kids. Past Medical History: Significant for diabetes, hypertension, cirrhosis of the liver, hernia, back surgery. Home Medications: Include amlodipine, Lovenox, lactulose, Rozerem, Protonix, insulin, , Lantus insulin, aspirin, Lipitor, and Coreg. Allergies: TO VANCOMYCIN. Social History: He is . No children. No tobacco. No alcohol. Family History: Father of coronary artery disease and mother of coronary artery disease and congestive heart failure, he is not really sure if he has hepatic encephalopathy, although reports in the chart cannot reviewed, cannot bring up on this computer system . Review of Systems: The patient has nausea, vomiting, midepigastric pain, confusion. No melena, hematochezia, hematuria, dysuria, polydipsia, hemoptysis, chest pain, shortness of breath, seizure, syncope, lower extremity edema, muscle aches, joint aches. No depression or anxiety. Physical Examination: Vital Signs: The patient is 5 feet 9 inches, 109 pounds, BMI of 20.6 kg/m2. General: He is well developed, well nourished male, sitting in bed with kyphosis of the neck. No acute distress. HEENT: Normocephalic, atraumatic. Anicteric. Pupils equal, round, and reactive to light. Extraocular movements intact. Oropharynx is clear. Neck: With kyphosis. Respiratory: Good airway movement. Cardiac: Regular rate and rhythm. Gastrointestinal: Soft. Positive bowel sounds. Soft, some tenderness in the midepigastric area with tympany in the midepigastric area as well, some dullness in the flanks and lower abdomen. The patient's kyphosis. Extremities: No clubbing, cyanosis, or edema. 2+ pulses. Neuro: Alert and oriented x1. The patient is somewhat confused, mildly. Laboratory Data: The patient has a white count of 3.0, hemoglobin of 9.4, hematocrit of 27.0, MCV of 95, platelet count of 61. Polys 65%, lymphocytes 18%, monocytes 9%, eosinophils 7%, basophils 2%. Sodium 140, potassium 4.2, chloride 113, bicarb 20, BUN up to 41, creatinine of 1.4, glucose 184, calcium 8.0, total bilirubin 2.1, AST of 55, ALT of 25, alkaline phosphatase 207, total protein 5.9, albumin 2.0, calcium 8.2, lactic acid of 2.1 down from 2.9 previously, lipase 74. UA; . Serologies; negative COVID-19 and negative influenza type A and B testing. CT of the abdomen and pelvis revealed cirrhosis, moderate ascites, cholelithiasis, large hiatal hernia, small pleural effusion with compression atelectasis changes, diffuse bony osteopenia and L2-L4 fusion type changes in the spine. Impression: 1. Nausea, vomiting, midepigastric pain with tympany to percussion in the midepigastric area without gastritis with excessive gas from recent food or antibiotics or other. We will now treat with acid suppression and try anti-gas medications in this patient to see if he improves. Otherwise, consider EGD evaluation. 2. Cirrhosis of the liver. 3. Ascites with every week paracentesis with now with moderate ascites noted on CT. 4. Hepatic encephalopathy. Will need lactulose and Xifaxan therapy. 5. Abnormal CT revealing cirrhosis, moderate ascites, cholelithiasis, large hiatal hernia, small pleural effusions with compressive atelectatic changes and diffuse bony osteopenia, and L2-L4 fusion changes. 6. History of diabetes, hypertension, cirrhosis, hernia, back surgery, recent cellulitis of the foot with 2-3 weeks of antibiotics. Recommendations: 1. PPI therapy. 2. Simethicone. 3. Ultrasound of the abdomen with paracentesis in a.m., then start the IV antibiotics. 4. Lactulose, Xifaxan therapy. 5. Consider EGD evaluation. ARMANDO/JIE Voice ID: [id number] Report ID: [id number] [facility]
[2021-06-19] MEDS: CEFTRIAXONE 2,000 MG in NA CHLORIDE 0.9% 100 ML IV SCH (08:23)
[2021-06-19 10:07] LABS: Protime INR 2.03
[2021-06-19] MEDS: LACTULOSE 20 GM/30 ML UCUP PO SCH ×2 (11:51→20:22)
[2021-06-19] MEDS: DOCUSATE NA 100 MG CAP PO SCH ×2 (11:51→20:21)
[2021-06-19] MEDS: GLUCERNA SHAKE 237 ML CAN PO SCH ×2 (13:52→20:25)
[2021-06-19] MEDS: SUCRALFATE 1 GM TABLET PO SCH ×2 (16:28→20:23)
--- NOTE | 2021-06-19 19:07 | PN ---
Date of Progress Note: 06/19/2021 The patient is still somewhat confused today and anorectic. The paracentesis has been put on hold du e to the combination of the INR being elevated and the platelet count being depressed; however, will be rescheduled tomorrow after a unit of fresh frozen plasma will be given. Vital signs are basically stable. Discussion with the patient to some extent as to whether he wanted to [facility] and do the paracentesis here or whether he wanted to continue in [place]. At this stage, I think it to do the immediate treatment locally including the paracentesis. The pelvis still loo ks a little cellulitic. He has been continued on Rocephin IV and dressing changes with Bactroban. HR/MODL Voice ID: [id number] Report ID: [id number]
[2021-06-19] MEDS: ATORVASTATIN 20 MG TAB PO SCH (20:23)
[2021-06-19] MEDS: carvediloL 12.5 MG TAB PO SCH (20:23)
[2021-06-19] MEDS: MAGNESIUM OXIDE 400 MG TAB PO SCH (20:26)
[2021-06-19] MEDS ORDERED: HOME MED 1 EA UNK (Simvastatin [Simvastatin] 40 MG Tablet) PO SCH (21:00)
[2021-06-20] MEDS: NA CHLORIDE 0.9% 1,000 ML IV SCH ×3 (01:19→21:30)
[2021-06-20 07:56] LABS: Absolute Lymphocytes (CBC) 0.5 K/uL (0.7-4.9); Hematocrit 26.2 % (39.6-49.0); Lymphocytes % 14.1 % (15.3-44.8); MPV 9.2 fL (7.6-11.3); RBC Red Blood Cell Count 2.73 M/uL (4.33-5.43)
[2021-06-20 08:06] LABS: Albumin 1.7 g/dL (3.4-5.0); Bilirubin Total 1.6 mg/dL (0.2-1.0); Protein, Total 5.3 g/dL (6.4-8.2)
[2021-06-20] MEDS ORDERED: NA CHLORIDE 0.9% 100 ML ONE (08:15)
[2021-06-20] MEDS ORDERED: CEFTRIAXONE 2000 MG/VIAL ONE (08:23)
[2021-06-20] MEDS: GLUCERNA SHAKE 237 ML CAN PO SCH ×3 (09:00→20:53)
[2021-06-20] MEDS: AMLODIPINE 10 MG TAB PO SCH (09:00)
[2021-06-20] MEDS ORDERED: NA CHLORIDE 0.9% 250 ML ONE (09:17)
[2021-06-20] MEDS: CEFTRIAXONE 2,000 MG in NA CHLORIDE 0.9% 100 ML IV SCH (09:45)
[2021-06-20] MEDS: MEDIHONEY 44 ML TOPICAL TUBE TOP SCH (09:45)
[2021-06-20] MEDS: carvediloL 12.5 MG TAB PO SCH ×2 (09:46→21:00)
[2021-06-20] MEDS: THIAMINE HCL 100 MG TABLET PO SCH (09:46)
[2021-06-20] MEDS: FOLIC ACID 1 MG TABLET PO SCH (09:46)
[2021-06-20] MEDS: SUCRALFATE 1 GM TABLET PO SCH ×4 (09:46→20:51)
[2021-06-20] MEDS: DOCUSATE NA 100 MG CAP PO SCH ×2 (09:47→20:51)
[2021-06-20] MEDS: MAGNESIUM OXIDE 400 MG TAB PO SCH ×2 (09:47→20:54)
[2021-06-20] MEDS: EZETIMIBE 10 MG TAB PO SCH (09:47)
[2021-06-20] MEDS: LACTULOSE 20 GM/30 ML UCUP PO SCH (09:47)
[2021-06-20] MEDS: INSULIN -REGULAR HUMAN 50 UNIT/0.5 ML ML SQ SCH ×4 (09:49→21:00)
[2021-06-20] MEDS: HYDROCODONE/APAP 5/325 MG TAB PO PRN ×2 (10:07→16:37)
[2021-06-20] MEDS ORDERED: ALBUMIN HUMAN 25% 100 ML IV ONE (10:24)
--- NOTE | 2021-06-20 11:12 | RAD REPORT ---
EXAM DESCRIPTION: US - Paracentesis Proc Guidance - 06/20/2021 10:59 am CLINICAL HISTORY: moderate-large ascites, diagnostic and therapeutic Ascites COMPARISON: URINARY BLADDER dated 05/15/2012 FINDINGS: Informed consent was obtained and time-out was performed. Patient's abdomen was prepped and draped in the usual sterile fashion. 1% lidocaine was used for loca l anesthetic purposes. A small skin incision was made. A paracentesis catheter was guided into the peroneal cavity under son ographic guidance. A small amount of fluid was sent for requested lab studies. A large volume paracentesis was performed , limited to 5L. The patient tolerated the procedure well. IMPRESSION: Successful ultrasound-guided paracentesis.
[2021-06-20 15:05] LABS: Appearance CLEAR (CLEAR); Body Fluid Source PERITONEAL; Body Fluid WBC 19 /mm^3; Color of fluid Yellow (COLORLESS)
[2021-06-20 15:24] LABS: Absolute Lymphocytes (CBC) 0.4 K/uL (0.7-4.9); Hematocrit 25.8 % (39.6-49.0); Lymphocytes % 14.5 % (15.3-44.8); MPV 8.3 fL (7.6-11.3); RBC Red Blood Cell Count 2.69 M/uL (4.33-5.43)
[2021-06-20 15:37] LABS: Potassium 3.7 mmol/L (3.5-5.1)
[2021-06-20 16:48] LABS: Blood Morphology Comment NOT SEEN (NOT SEEN); Platelet Estimate DECR; Platelets, Giant FEW; White Blood Cell Scan OK (OK)
--- NOTE | 2021-06-20 18:10 | P.PN ---
Subjective Date of Service: 06/20/21 Chief Complaint: Vomiting, dehydration, abdominal pain, ascites, hep enceph, cirrhosis Subjective: Improving (Feels much better s/p start of IV antibiotics yesterday and paracentesis today. Hep encephalopathy improved from grade 3 to 1 today. And no abdominal pain.) Review of Systems 10-point ROS is otherwise unremarkable General: Weakness (Improved. ) Physical Examination - Vital Signs Temperature: 97.0 F Blood Pressure: 95/54 Pulse: 76 Respirations: 18 Pulse Ox (%): 99 - Physical Exam General: Alert, In no apparent distress, Oriented x3, Cooperative HEENT: Atraumatic, Normocephalic, PERRLA, EOMI Neck: Supple Respiratory: Normal air movement Cardiovascular: Normal pulses Gastrointestinal: Soft and benign, No tenderness, No rebound, No guarding Neurological: Normal speech Assessment And Plan - Current Problems (Diagnosis) (1) Cirrhosis of liver Current Visit: Yes Status: Acute (2) Ascites Current Visit: Yes Status: Acute Comment: s/p paracentesis today 06-20-21 (3) Hepatic encephalopathy Current Visit: Yes Status: Acute Comment: Grade 3 to grade 1 with antibiotics (4) Cellulitis Current Visit: Yes Status: Acute - Plan REC: 1) continue IV antibiotics 2) limit all IVFs 3) po diet 4) liver clinic f/u
--- NOTE | 2021-06-20 20:21 | PN ---
Date of Progress Note: 06/20/2021 The patient underwent successful ultrasound-guided paracentesis, limited to 5 L, seem to tolerate the procedure well. However, the patient is still quite confused, anorectic. We will continue to monit or. HR/MODL Voice ID: [id number] Report ID: [id number]
[2021-06-20] MEDS: ATORVASTATIN 20 MG TAB PO SCH (20:52)
[2021-06-21 04:25] LABS: Albumin 1.9 g/dL (3.4-5.0); Magnesium 1.6 mg/dL (1.8-2.4)
[2021-06-21 08:35] LABS: Absolute Lymphocytes (CBC) 0.4 K/uL (0.7-4.9); Lymphocytes % 14.7 % (15.3-44.8); MPV 9.1 fL (7.6-11.3)
[2021-06-21 08:48] LABS: Potassium 4.4 mmol/L (3.5-5.1)
[2021-06-21] MEDS: GLUCERNA SHAKE 237 ML CAN PO SCH ×3 (09:00→21:00)
[2021-06-21] MEDS: carvediloL 12.5 MG TAB PO SCH ×2 (09:00→21:40)
[2021-06-21] MEDS: DOCUSATE NA 100 MG CAP PO SCH ×2 (09:00→21:00)
[2021-06-21] MEDS: AMLODIPINE 10 MG TAB PO SCH (09:00)
[2021-06-21] MEDS: SUCRALFATE 1 GM TABLET PO SCH ×4 (09:12→21:40)
[2021-06-21] MEDS: MAGNESIUM OXIDE 400 MG TAB PO SCH ×2 (09:12→21:40)
[2021-06-21] MEDS: THIAMINE HCL 100 MG TABLET PO SCH (09:13)
[2021-06-21] MEDS: CEFTRIAXONE 2,000 MG in NA CHLORIDE 0.9% 100 ML IV SCH (09:13)
[2021-06-21] MEDS: FOLIC ACID 1 MG TABLET PO SCH (09:13)
[2021-06-21] MEDS: MEDIHONEY 44 ML TOPICAL TUBE TOP SCH (09:14)
[2021-06-21] MEDS: EZETIMIBE 10 MG TAB PO SCH (09:15)
[2021-06-21] MEDS: HYDROCODONE/APAP 5/325 MG TAB PO PRN (09:15)
[2021-06-21] MEDS: NA CHLORIDE 0.9% 1,000 ML IV SCH ×2 (09:16→17:30)
[2021-06-21] MEDS: INSULIN -REGULAR HUMAN 50 UNIT/0.5 ML ML SQ SCH ×4 (09:16→21:00)
[2021-06-21] MEDS ORDERED: MAGNESIUM SULFATE 1 gm IVPB 1 GM/100 ML BAG IV ONE (13:00)
[2021-06-21] MEDS: LACTULOSE 20 GM/30 ML UCUP PO SCH (21:00)
[2021-06-21] MEDS: ATORVASTATIN 20 MG TAB PO SCH (21:40)
[2021-06-22] MEDS: ONDANSETRON 4 MG/2 ML VIAL IV PRN (01:36)
[2021-06-22 06:30] LABS: Absolute Lymphocytes (CBC) 0.6 K/uL (0.7-4.9); Hematocrit 26.5 % (39.6-49.0); Lymphocytes % 19.1 % (15.3-44.8); MPV 10.2 fL (7.6-11.3)
[2021-06-22] MEDS: INSULIN -REGULAR HUMAN 50 UNIT/0.5 ML ML SQ SCH ×4 (07:30→21:00)
[2021-06-22 07:52] LABS: Protime INR 1.89
--- NOTE | 2021-06-22 07:55 | EKG ---
Test Date: 2021-06-21 Test Time: 14:35:23 [employer]: COREY MEASUREMENT RESULTS: Intervals: Rate: 63 NJ: 262 QRSD: 140 QT: 454 QTc: 464 [place]: P: NJ: 262 QRS: -48 T: -4 INTERPRETIVE STATEMENTS: Sinus rhythm with 1st degree AV block with premature atrial complexes Right bundle branch block Left anterior fascicular block Bifascicular block Septal infarct, age undetermined Abnormal ECG Compared to ECG 11/28/2020 19:01:16 Atrial premature complex(es) now present First degree AV block now present Left anterior fascicular block now present Bifascicular block now present Sinus arrhythmia no longer present Ventricular premature complex(es) no longer present Myocardial infarct finding still present Electronically Signed On 06-22-21 07:54:34 CDT by Nba Dumont
[2021-06-22] MEDS ORDERED: CEFTRIAXONE 2000 MG/VIAL ONE (08:31)
[2021-06-22] MEDS: LACTULOSE 20 GM/30 ML UCUP PO SCH ×2 (09:00→20:58)
[2021-06-22] MEDS ORDERED: NA CHLORIDE 0.9% 100 ML ONE (10:31)
[2021-06-22] MEDS: CEFTRIAXONE 2,000 MG in NA CHLORIDE 0.9% 100 ML IV SCH (10:34)
[2021-06-22] MEDS: MAGNESIUM OXIDE 400 MG TAB PO SCH ×2 (10:35→21:00)
[2021-06-22] MEDS: FOLIC ACID 1 MG TABLET PO SCH (10:35)
[2021-06-22] MEDS: carvediloL 12.5 MG TAB PO SCH ×2 (10:35→20:59)
[2021-06-22] MEDS: EZETIMIBE 10 MG TAB PO SCH (10:35)
[2021-06-22] MEDS: AMLODIPINE 10 MG TAB PO SCH (10:35)
[2021-06-22] MEDS: THIAMINE HCL 100 MG TABLET PO SCH (10:35)
[2021-06-22] MEDS: SUCRALFATE 1 GM TABLET PO SCH ×4 (10:36→21:00)
[2021-06-22] MEDS: GLUCERNA SHAKE 237 ML CAN PO SCH ×3 (10:36→21:00)
[2021-06-22] MEDS: DOCUSATE NA 100 MG CAP PO SCH ×2 (10:36→21:00)
[2021-06-22] MEDS: MEDIHONEY 44 ML TOPICAL TUBE TOP SCH (10:37)
[2021-06-22] MEDS ORDERED: ALBUMIN HUMAN 25% 100 ML IV ONE (12:15)
[2021-06-22] MEDS ORDERED: LACTULOSE 20 GM/30 ML UCUP PO ONE (14:00)
--- NOTE | 2021-06-22 16:39 | PN ---
Date of Progress Note: 06/22/2021 Over the past day, the patient has become increasingly more sedated, possibly secondary to his rise i n ammonia level. We will therefore increase his lactulose. EKG did show some changes from prior one of 6 months ago with bifascicular block. We will have Cardiology evaluate as well. His hydration i s basically status quo without the IV fluids. Discussion was held with the family as far as feeding, hydration and use of a feeding tube which he chose not to do and his care is for his DNR was felt th at [facility] at this time would be appropriate. This was done. HR/MODL Voice ID: [id number] Report ID: [id number]
--- NOTE | 2021-06-22 20:00 | CON ---
Date of Consultation: 06/22/2021 Reason For Consultation: Premature atrial contractions and bifascicular heart block. History Of Present Illness: 76-year-old male history of coronary artery disease, history of CABG and multiple stents, diabetes, hypertension, cirrhosis, chronic kidney disease, history of liver cirrhos is, presented with GI symptoms and ascites requiring paracentesis, and nausea and vomiting with confu elmer. However, patient is very poor historian. Information on this consult obtained from the chart and from the primary care physician taking care of the patient. There is no reported symptoms of renita st pain or shortness of breath. Past Medical History: As outlined above in HPI. Medications: Refer reconciliation sheet for detailed list. Allergies: VANCOMYCIN. Family History: No premature coronary artery disease or cancer. Social History: Does not smoke or use any drugs. Review of Systems: All systems reviewed and negative except mentioned in HPI. Physical Examination: Vital Signs: Reviewed. Head and Neck: Pupils are equal, reactive to light. Intact eye movements. No JVD. No cervical lym phadenopathy. Neck: Supple. Thyroid not enlarged. Lungs: Clear to auscultation bilaterally. No rhonchi, rales, or crackles. No accessory muscle use. Heart: Regular rate and rhythm. No extra sounds. Abdomen: Soft, nontender. Bowel sounds positive. No organomegaly. No masses or hernia. No rigidi ty or rebound. Extremities: No clubbing, cyanosis. Intact pulses. Skin: No rash. Neurologic: Alert and awake and confused. No focal deficits appreciated. Investigations: Hemoglobin 9.2, creatinine 1.23. Assessment And Recommendations: Premature atrial contraction. The patient is in sinus. There is no atrial fibrillation and has bifascicular block. However, maintaining a heart rate in the mid 60s to 70s with a good blood pressure. No further action is needed at this point. Keep monitoring the pat ient on telemetry and please obtain an echocardiogram. Thank you for the consult. /JIE Voice ID: [id number] Report ID: [id number]
[2021-06-22] MEDS: Rifaximin 550 MG Tab PO SCH (20:57)
[2021-06-22] MEDS: HYDROCODONE/APAP 5/325 MG TAB PO PRN (20:58)
[2021-06-22] MEDS: ATORVASTATIN 20 MG TAB PO SCH (21:00)
[2021-06-23] MEDS: HYDROCODONE/APAP 5/325 MG TAB PO PRN ×3 (05:14→23:54)
[2021-06-23 06:36] LABS: Potassium 4.1 mmol/L (3.5-5.1)
[2021-06-23 06:51] LABS: Absolute Lymphocytes (CBC) 0.5 K/uL (0.7-4.9); Hematocrit 47.6 % (39.6-49.0); Lymphocytes % 13.2 % (15.3-44.8); MPV 9.4 fL (7.6-11.3); RBC Red Blood Cell Count 4.98 M/uL (4.33-5.43)
[2021-06-23] MEDS: INSULIN -REGULAR HUMAN 50 UNIT/0.5 ML ML SQ SCH ×4 (07:30→21:00)
[2021-06-23] MEDS: MAGNESIUM OXIDE 400 MG TAB PO SCH ×2 (09:00→22:17)
[2021-06-23] MEDS ORDERED: ALBUMIN HUMAN 25% 100 ML IV ONE (09:00)
[2021-06-23] MEDS: LACTULOSE 20 GM/30 ML UCUP PO SCH ×2 (09:00→21:00)
[2021-06-23] MEDS: DOCUSATE NA 100 MG CAP PO SCH ×2 (09:00→22:15)
[2021-06-23] MEDS: GLUCERNA SHAKE 237 ML CAN PO SCH ×3 (09:00→22:18)
[2021-06-23] MEDS: AMLODIPINE 10 MG TAB PO SCH (09:00)
[2021-06-23 09:24] LABS: White Blood Cell Scan OK (OK)
[2021-06-23 09:25] LABS: Blood Morphology Comment NOT SEEN (NOT SEEN); Platelet Estimate DECR
[2021-06-23 10:02] LABS: Absolute Lymphocytes (CBC) 0.8 K/uL (0.7-4.9); Hematocrit 29.6 % (39.6-49.0); Lymphocytes % 16.8 % (15.3-44.8); MPV 9.4 fL (7.6-11.3); RBC Red Blood Cell Count 3.11 M/uL (4.33-5.43)
[2021-06-23] MEDS: SUCRALFATE 1 GM TABLET PO SCH ×4 (10:23→22:18)
[2021-06-23] MEDS: carvediloL 12.5 MG TAB PO SCH ×2 (10:24→22:16)
[2021-06-23] MEDS: EZETIMIBE 10 MG TAB PO SCH (10:24)
[2021-06-23] MEDS: Rifaximin 550 MG Tab PO SCH ×2 (10:24→22:17)
[2021-06-23] MEDS: THIAMINE HCL 100 MG TABLET PO SCH (10:25)
[2021-06-23] MEDS: FOLIC ACID 1 MG TABLET PO SCH (10:25)
[2021-06-23] MEDS: MEDIHONEY 44 ML TOPICAL TUBE TOP SCH (10:26)
[2021-06-23] MEDS ORDERED: MORPHINE 2 MG/ML SYR IV PRN (11:15)
[2021-06-23 11:21] VITALS: O2SAT 100
[2021-06-23] MEDS ORDERED: NA CHLORIDE 0.9% IV SCH (15:00)
[2021-06-23] MEDS ORDERED: D10W 125 ML IV PRN (15:44)
[2021-06-23] MEDS: ATORVASTATIN 20 MG TAB PO SCH (22:16)
[2021-06-24 01:30] LABS: GLUCOSE, PERITONEAL FLUID 231 mg/dL; TOTAL PROTEIN,PERITONEAL FLUID <3.0 g/dL
[2021-06-24 06:41] LABS: Protein, Total 5.8 g/dL (6.4-8.2)
[2021-06-24 07:15] LABS: Potassium 4.3 mmol/L (3.5-5.1)
[2021-06-24] MEDS: SUCRALFATE 1 GM TABLET PO SCH ×2 (07:30→11:30)
[2021-06-24] MEDS: INSULIN -REGULAR HUMAN 50 UNIT/0.5 ML ML SQ SCH ×2 (07:30→12:11)
[2021-06-24] MEDS: HYDROCODONE/APAP 5/325 MG TAB PO PRN (07:36)
[2021-06-24] MEDS: AMLODIPINE 10 MG TAB PO SCH (09:00)
[2021-06-24] MEDS: DOCUSATE NA 100 MG CAP PO SCH (09:00)
[2021-06-24] MEDS: Rifaximin 550 MG Tab PO SCH (09:00)
[2021-06-24] MEDS: EZETIMIBE 10 MG TAB PO SCH (09:00)
[2021-06-24] MEDS: FOLIC ACID 1 MG TABLET PO SCH (09:00)
[2021-06-24] MEDS: carvediloL 12.5 MG TAB PO SCH (09:00)
[2021-06-24] MEDS: MEDIHONEY 44 ML TOPICAL TUBE TOP SCH (09:00)
[2021-06-24] MEDS: GLUCERNA SHAKE 237 ML CAN PO SCH ×2 (09:00→14:00)
[2021-06-24] MEDS: MAGNESIUM OXIDE 400 MG TAB PO SCH (09:00)
[2021-06-24] MEDS: LACTULOSE 20 GM/30 ML UCUP PO SCH (09:00)
[2021-06-24] MEDS: THIAMINE HCL 100 MG TABLET PO SCH (09:00)
[2021-06-24 12:14] VITALS: BP 116/58; TEMP 97.9
--- NOTE | 2021-06-24 17:47 | PN ---
Date of Progress Note: 06/24/2021 The patient is significantly improved both clinically, lab felipe and mentally over the past 24 hours. Contributed some of this to the hydration, protein and increase in the lactulose from 10 to 20 b.i.d . I feel he could be discharged to continue on the usual medications with the increase in the lactul ose. He will be followed up in [place] for a paracentesis, which he was told to go on Saturday and st ill awaiting till . He is over the rebuilding significant amount of fluid and to come and se e me [facility] on Saturday as he still also has improved on the [employer] applications. HR/MODL Voice ID: [id number] Report ID: [id number]
--- NOTE | 2021-06-26 07:11 | ECHO ---
HEIGHT: 5 ft 9 in WEIGHT: 139 lb 0 oz DATE OF STUDY: 06/23/[address]: Hernandez Ortiz 2-DIMENSIONAL: YES M.MODE: YES DOPPLER: YES COLOR FLOW: YES TDS: PORTABLE: YES DEFINITY: BUBBLE STUDY: DIAGNOSIS: EKG CHANGES CARDIAC HISTORY: CATHERIZATION: SURGERY: YES PROSTHETIC VALVE: PACEMAKER: MEASUREMENTS (cm) DIASTOLIC (NORMALS) SYSTOLIC (NORMALS) IVSd 1.2 (0.6-1.2) LA Diam 3.4 (1.9-4.0) LVEF >60% LVIDd 4.1 (3.5-5.7) LVIDs 1.8 (2.0-3.5) %FS 55% LVPWd 1.0 (0.6-1.2) Ao Diam 2.8 (2.0-3.7) 2 DIMENSIONAL ASSESSMENT: RIGHT ATRIUM: NORMAL LEFT ATRIUM: NORMAL RIGHT VENTRICLE: NORMAL LEFT VENTRICLE: LEFT VENTRICULAR HYPERTROPHY TRICUSPID VALVE: MODERATE TRICUSPID REGURGITATION MITRAL VALVE: NORMAL PULMONIC VALVE: MILD PULMONIC INSUFFICIENCY AORTIC VALVE: MILD AORTIC SCLEROSIS PERICARDIAL EFFUSION: NONE AORTIC ROOT: NORMAL LEFT VENTRICULAR WALL MOTION: NORMAL DOPPLER/COLOR FLOW: SEE BELOW COMMENTS: NORMAL LEFT VENTRICULAR EJECTION FRACTION >60%. NORMAL WALL MOTION. CALCIFIED AORTIC VALVE WITH MILD AORTIC STENOSIS. MODERATE CONCENTRIC LEFT VENTRICULAR HYPERTROPHY. MODERATE TRICUSPID REGURGITATION. TECHNOLOGIST: SALOME HAMPTON
== END 2021-06-24 15:00 | disposition home or self-care (01) | DRG 432 ==
LOC: ER 22:17 → 2ND 06-17 02:15 → OBSVTOIN 06-17 17:32
PROVIDERS: ADMIT Hospitalist; ATTEND Hospitalist
PROC: 0W9G3ZX Drainage of Peritoneal Cavity, Percutaneous Approach, Diagnostic (ICD-10-PCS; principal; 2021-06-20)
DX: K70.31 Alcoholic cirrhosis of liver with ascites (principal); K72.00 Acute and subacute hepatic failure without coma; E43 Unspecified severe protein-calorie malnutrition; E87.2 Acidosis; L03.119 Cellulitis of unspecified part of limb; I25.10 Atherosclerotic heart disease of native coronary artery without angina pectoris; I49.1 Atrial premature depolarization; L89.621 Pressure ulcer of left heel, stage 1; L89.611 Pressure ulcer of right heel, stage 1; Z68.20 Body mass index [BMI] 20.0-20.9, adult; I12.9 Hypertensive chronic kidney disease with stage 1 through stage 4 chronic kidney disease, or unspecified chronic kidney disease; E11.22 Type 2 diabetes mellitus with diabetic chronic kidney disease; E11.65 Type 2 diabetes mellitus with hyperglycemia; N18.30 Chronic kidney disease, stage 3 unspecified; K46.9 Unspecified abdominal hernia without obstruction or gangrene; E86.0 Dehydration; D69.6 Thrombocytopenia, unspecified; Z95.1 Presence of aortocoronary bypass graft; Z95.5 Presence of coronary angioplasty implant and graft; Z20.822 Contact with and (suspected) exposure to COVID-19
CPT/HCPCS: 0240U; 36415; 36430; 49083; 74176; 80048; 80053; 80076; 81003; 81015; 82040; 82042; 82140; 82150; 82274; 82945; 82947; 83605; 83690; 83735; 84155; 84157; 85025; 85610; 85730; 86850; 86900; 86901; 87040; 87070; 87086; 87088; 89050; 93005; 93306; 96361; 96374; 96375; 99251; 99285; G0378; J0696; J1815; J2270; J2405; J3475; J7030; J7040; J7050; P9047; P9059

== ENCOUNTER 2021-06-25 11:56 | Emergency (ER) | payer OTHER, MEDICARE ==
--- OUTSIDE RECORDS SUMMARY | 2021-06-25 12:01 | XMS REPORT | Continuity of Care Document ---
:1945 Author Organization [facility] t Address 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[facility] hypogonadi hypogonadi 03-17 Co llege sm sm 00:00: of 00 Medicin e Special Special Disease Active 2016-03 [facility] screening screening 03-17 [place] for for [...] Medicin e BPH BPH Disease Active 2012-03 [facility] (benign (benign 03-04 [facility] prostatic prostatic 00:00: of hypertroph hypertroph 00 Me dicin y) with y) with e urinary urinary obstructio obstructio n n Erectile Erectile Disease Active 2012-03 [facility] r dysfunctio dysfunctio 03-04 Co llege n n 00:00: of 00 Medicin e History of History of Disease Active 2012-03 U nivers nonmelanom nonmelanom 0-21 it y of a skin a skin 00:00: [place] cancer cancer [facility] Allergies, Adverse Reactions, [...] DA Active U 2017-03 [facility] Allergie 0-15 [place] [facility] 00[facility] No Known DA Active U [facility] Allergie 8-29 [place] [facility] 00:[facility]ope 00 dic Hospita l NO KNOWN Drug Active Univers ALLERGIE Class ity of S [facility] Family History Family Member Diagnosis Comments Start Date Stop Date Source Natural father Heart disease [facility] Natural mother Heart disease [facility] Social History Social Habit Start Date Stop Date Quantity Comments Source History of tobacco Cigarette Smoker [facility] Exposure to Not sure University of SARS-CoV-2 (event) [facility] History SDOH Jew Alcohol Std Drinks Hospit al History SDOH Jew Alcohol Binge Hospital Alcohol intake 2021-03-27 2021-03-27 .43 /d Jew 00:00:00 00:00:00 Hospital Cigarettes smoked 2019-09-10 2019-09-10 [facility] current (pack per 00:00:00 00:00:00 Hospita l day) - Reported Cigarette 2019-09-10 2019-09-10 Jew pack-years 00:00:00 00:00:00 Hospital Tobacco use and 2019-09-10 2019-09-10 Smokeless Jew exposure 00:00:00 00:00:00 tobacco non-user Hospital History SDOH 2019-09-10 2019-09-10 3 Jew Alcohol Frequency 00:00:00 00:00:00 Hospita l Alcohol Comment 2018-01-31 2018-01-31 3 week Jew 00:00:00 00:00:00 Hospital Sex Assigned At [address] [facility] - 00:00[facility]00 [facility]00 [facility] Smoking Status Start Date Stop Date Source Ex-smoker 2019-09-10 00:00:00 2019-09-10 00:00:00 [facility] Never smoker [facility] Medications Ordered Filled Start Stop [...] daily with l breakfast. HYDROcodone 0 Yes [id number] 1{tbl} Q4H Take 1 M ethodi -acetaminop 1-[address] hen (NORCO) 13:02: mouth Hospi ta 7.5-325 mg 10 every 4 l per tablet (four) hours as needed for mild pain or moderate pain .acute pain. (per Prescripti on Drug Monitoring Program, last filled 01/09/2021 , quantity: 56, day supply: 28) insulin 2021-0 Yes [id number] Inject Me thodi ASPART 1-[id number] (NovoLOG) 13:02: 3D skin [...] for 30 days. metoclopram 2020- No 5mg Q.[id number] Take 1 Methodi gerald 9-10 10-11 [id number] tablet (5 st (Reglan) 5 00:00: 04:59 [...] for 30 days. polyethylen 2020- No 17g Q.[id number] Take 17 g Methodi e glycol 6-30 07-31 [id number] by mouth [address] (GLYCOLAX) 00:00: 04:59 3D (three) Hos cat 17 00 :00 times a l gram/dose day for 30 powder days. riFAXimin 2020- No [id number] 550mg Q.5D Take 1 Methodi (Xifaxan) 08-[address] 550 mg 00:00: 04:59 (550 mg Hospita tablet 00 :00 total) by l mouth 2 (two) times a day for 30 days. amLODIPine 2020- No [id number] 10mg QD Take 1 Methodi (NORVASC) 07-27- [...] for 30 days. methocarbam 2020- No 500mg Q.[id number] Take 500 Methodi ol 5-20 05-[id number] (ROBAXIN) 20:05: 00:00 3D mouth 3 Hosp mahesh 500 MG 04 :00 (three) l tablet times a day. lisinopriL No 40mg QD Take 40 mg Methodi (PRINIVIL) 5-20 05-[address] 40 mg 20:04: 00:00 daily. Hospita tablet 58 :00 l insulin 2020- No 8U [id number] Inject 8 Methodi lispro 5-20 05-[id number] (HumaLOG) 20:03: 00:00 3D under the Ho spita 100 unit/mL 44 :00 skin 3 l injection (three) times a day before meals. GUAIFENESIN 2020- No 400mg [id number] Take 400 Methodi ORAL 5-20 05-[id number] 20:03: 00:00 3D mouth 3 Hospita 07 :00 (three) l times a day. ezetimibe-s 2020- No 1{tbl} QD Take 1 M ethodi imvastatin 5-20 05-[address] (VYTORIN) 20:03: 00:00 mouth Hospit a 10-40 mg 01 :00 nightly. l per tablet sildenafil Yes [id number] Take by [facility] citrate 4-14 [facility] (VIAGRA) 00:00: daily for of 100 MG 00 HTN and Medicin tablet ED. e testosteron 2020- No [id number] 200 mg/cc, [facility] e cypionate -14 04-14 1 vial = Col lege (DEPOTESTOT 00:00: 00:00 10 of ERONE 00 :00 ccInject Medicin CYPIONATE) _0.75_ cc e 200 MG/ML IM Q _7_ injection days. silver 2018-03 Yes [id number] Apply to Un jenny sulfADIAZIN 0-22 area(s) 2 ity of E 00:00: (two) [place] (SILVADENE) 00 times Medical 1 % cream daily. Ninfa silver 2018-03 Yes [id number] Apply to Un jenny sulfADIAZIN 0-22 area(s) [...] injection days. sildenafil 2020- No Take by [facility] citrate 08-27 [facility] (VIAGRA) 00:00: 00:00 daily for of 100 MG 00 :00 HTN and Medicin tablet ED. e anastrozole 2016-03 Yes Take one [facility] (ARIMIDEX) 1-27 per week Colle ge 1 MG tablet 00:00: of 00 Medicin e FENOFIBRATE Yes Take by Un jenny NANOCRYSTAL 5-25 mouth. ity of LIZED 08:49: [place] (TRICOR 56 Medical ORAL) [place] EZETIMIBE/S Yes Take by Un jenny IMVASTATIN 5-25 mouth. ity of (VYTORIN 08:49: [place] 10-20 ORAL) [address] [place] [address] Branch FENOFIBRATE Yes Take by Un jenny NANOCRYSTAL 5-25 mouth. ity of LIZED 08:49: [place] (TRICOR 56 Medical ORAL) [place] EZETIMIBE/S Yes Take by Un jenny IMVASTATIN 5-25 mouth. ity of (VYTORIN 08:49: [place] 10-20 ORAL) [address] [place] [address] Branch enalapril Yes 5mg Take 5 mg Uni vers (VASOTEC) 5 5-25 by mouth ity of mg tablet 08:49: daily. [address] enalapril Yes 5mg Take 5 mg Uni vers (VASOTEC) 5 5-25 by mouth ity of mg tablet 08:49: daily. [address] Branch fluorouraci Yes Apply to Univers [...] Source Systolic blood 2020-06-16 00:05:00 133 mm[Hg] [facility] Medicine Diastolic blood 2020-06-16 00:05:00 78 mm[Hg] [facility] Medicine Heart rate 2020-06-16 00:05:00 97 /min [facility] Systolic blood 2021-03-30 17:45:00 158 mm[Hg] [facility] pressure Diastolic blood 2021-03-30 17:45:00 68 mm[Hg] [facility] pressure Heart rate 2021-03-30 17:45:00 79 /min [facility] Body temperature 2021-03-30 17:45:00 36.44 [facility] Respiratory rate 2021-03-30 17:45:00 20 /min [facility] Oxygen saturation in 2021-03-30 17:45:00 99 /min [facility] Arterial blood by Pulse oximetry Body height 2021-03-27 18:59:00 165.1 cm [facility] Body weight 2021-03-27 18:59:00 62.596 kg [facility] BMI 2021-03-27 18:59:00 22.96 kg/m2 [facility] Procedures Procedure Date / Time Performing Clinician Source Performed PROTHROMBIN TIME WITH INR 2021-03-30 18:11:00 [facility] HEMOGLOBIN A1C 2021-03-30 18:11:00 [facility] FIBRINOGEN 2021-03-30 18:11:00 Krissy, [facility] spital COMPREHENSIVE METABOLIC 2021-03-30 18:11:00 Krissy, [facility] PANEL CBC WITH PLATELET AND 2021-03-30 18:11[facility] ABDOMINAL PARACENTESIS 2021-03-30 18:00:00 Krissy, [facility] IMAGING ANAEROBIC CULTURE 2021-03-30 16:59:00 [facility] AEROBIC CULTURE 2021-03-30 16:59:00 Karl Oakes spital GRAM STAIN 2021-03-30 16:59:00 Karl Oakes spital ALBUMIN, [facility] FLUID 2021-03-30 16:59:00 [facility] AMYLASE LEVEL, [facility] FLUID 2021-03-30 16:59:00 Krissy [facility] LDH, [facility] FLUID 2021-03-30 16:59:00 Karl Oakes spital PROTEIN, [facility] FLUID 2021-03-30 16:59:[address] [facility] CELL COUNT AND 2021-03-30 16:59:00 Karl Oakes spital DIFFERENTIAL, BODY FLUID TRIGLYCERIDES, [facility] FLUID 2021-03-30 16:59:00 Krissy [facility] CYTOLOGY 2021-03-30 16:59:00 Karl Oakes spital (NON-GYNECOLOGICAL) REQUEST AEROBIC CULTURE 2021-03-23 18:00:00 Karl Oakes spital ANAEROBIC CULTURE 2021-03-23 18:00:00 Krissy [facility] GRAM STAIN 2021-03-23 18:00:00 Karl Oakes spital CELL COUNT AND 2021-03-23 18:00:00 Karl Oakes spital DIFFERENTIAL, BODY FLUID AMYLASE LEVEL, [facility] FLUID 2021-03-23 18:00:00 Krissy [facility] ALBUMIN, [facility] FLUID 2021-03-23 18:00:[address] [facility] PROTEIN, [facility] FLUID 2021-03-23 18:00:[address] [facility] LDH, [facility] FLUID 2021-03-23 18:00:00 Karl Oakes spital TRIGLYCERIDES, [facility] FLUID 2021-03-23 18:00:[facility] 2021-03-23 18:00:00 Karl Oakes spital (NON-GYNECOLOGICAL) REQUEST US ABDOMINAL PARACENTESIS 2021-03-23 17:47:22 [facility] COMPREHENSIVE METABOLIC 2021-03-16 20:30:00 Krissy [facility] PANEL FIBRINOGEN 2021-03-16 20:30:00 Karl Oakes PROTHROMBIN TIME WITH INR 2021-03-16 20:30:00 [facility] CBC WITH PLATELET AND 2021-03-16 20:30:00 Krissy [facility] DIFFERENTIAL US ABDOMINAL PARACENTESIS 2021-03-16 17:40:00 Krissy [facility] IMAGING AEROBIC CULTURE 2021-03-16 17:15:00 Karl Oakes spital GRAM STAIN 2021-03-16 17:15:00 Karl Oakes spital ANAEROBIC CULTURE 2021-03-16 17:15:00 [facility] AND 2021-03-16 17:15:00 Krissy Karleileen Boyd spital DIFFERENTIAL, BODY FLUID ALBUMIN, [facility] FLUID 2021-03-16 17:15:00 [facility] AMYLASE LEVEL, [facility] FLUID 2021-03-16 17:15:00 [facility] 2021-03-16 17:15:00 Karl Oakes spital PROTEIN, [facility] FLUID 2021-03-16 17:15:00 [facility] TRIGLYCERIDES, MISC FLUID 2021-03-16 17:15:00 [facility] 2021-03-16 17:15:00 Karl Oakes spital (NON-GYNECOLOGICAL) REQUEST US ABDOMINAL PARACENTESIS 2021-03-09 20:00:00 [facility] AEROBIC CULTURE 2021-03-09 19:50:00 Karl Oakes spital ANAEROBIC CULTURE 2021-03-09 19:50:00 Krissy [facility] FUNGUS CULTURE 2021-03-09 19:50:00 Karl Oakes spital AFB CULTURE 2021-03-09 19:50:00 Karl Oakes spital FUNGUS SMEAR 2021-03-09 19:50:00 Karl Oakes spital AFB STAIN 2021-03-09 19:50:00 Karl Oakes spital ALBUMIN, [facility] FLUID 2021-03-09 19:50:00 [facility] AMYLASE LEVEL, [facility] FLUID 2021-03-09 19:50:00 Krissy, [facility] LDH, [facility] FLUID 2021-03-09 19:50:00 Karl Oakes spital PROTEIN, [facility] FLUID 2021-03-09 19:50:00 [facility] TRIGLYCERIDES, [facility] FLUID 2021-03-09 19:50:00 [facility] CELL COUNT AND 2021-03-09 19:50:00 Karl Oakes spital DIFFERENTIAL, BODY FLUID CYTOLOGY 2021-03-09 19:50:00 Karl Oakes spital (NON-GYNECOLOGICAL) REQUEST US ABDOMINAL PARACENTESIS 2021-02-23 23:13:56 Krissy [facility] IMAGING ANAEROBIC CULTURE 2021-02-23 22:40:00 Krissy [facility] AEROBIC CULTURE 2021-02-23 22:40:00 Karl Oakes spital AFB CULTURE 2021-02-23 22:40:00 Karl Oakes spital FUNGUS CULTURE 2021-02-23 22:40:00 Karl Oakes spital FUNGUS SMEAR 2021-02-23 22:40:00 Karl Oakes spital AFB STAIN 2021-02-23 22:40:00 Karl Oakes spital ALBUMIN, MISC FLUID 2021-02-23 22:40:[address] [facility] AMYLASE LEVEL, MISC FLUID 2021-02-23 22:40:00 Krissy [facility] LDH, MISC FLUID 2021-02-23 22:40:00 Karl Oakes spital [facility]OTEIN, [facility] 2021-02-23 22:40:[address] [facility] CELL COUNT AND 2021-02-23 22:40:00 Karl Oakes DIFFERENTIAL, BODY FLUID TRIGLYCERIDES, [facility] FLUID 2021-02-23 22:40:00 Krissy [facility] CYTOLOGY 2021-02-23 22:40:00 Karl Oakes (NON-GYNECOLOGICAL) REQUEST POTASSIUM LEVEL 2021-02-23 21:40:00 [facility] POC GLUCOSE 2021-02-23 21:40:00 Karl Oakes spital BASIC METABOLIC PANEL 2021-02-23 19:20:00 Chiu [facility] Mora ESTIMATED GFR 2021-02-23 19:20:00 [place] [facility] Mora PROTHROMBIN TIME WITH INR 2021-02-17 19:11:00 [facility] FIBRINOGEN 2021-02-17 19:11:00 Karl Oakes spital COMPREHENSIVE METABOLIC 2021-02-17 19:11:00 Krissy, [facility] PANEL CBC WITH PLATELET AND 2021-02-17 19:11:00 [facility] ABDOMINAL PARACENTESIS 2021-02-15 21:00:00 Breezy [facility] IMAGING ANAEROBIC CULTURE 2021-02-15 20:35:00 [facility] 2021-02-15 20:35:00 Rupinder Tijerina spital GRAM STAIN 2021-02-15 20:35:00 Rupinder Tijerina carrie ALBUMIN, MISC FLUID 2021-02-15 20:35:00 [facility] TRIGLYCERIDES, MISC FLUID 2021-02-15 20:35:00 [facility] PROTEIN, MISC FLUID 2021-02-15 20:35:00 [facility] AMYLASE LEVEL, [facility] 2021-02-15 20:35:00 [facility] CELL COUNT AND 2021-02-15 20:35:00 Rupinder Tijerina DIFFERENTIAL, BODY FLUID CYTOLOGY 2021-02-15 20:35:00 Rupinder Tijerina (NON-GYNECOLOGICAL) REQUEST POC GLUCOSE 2021-02-01 20:04:00 Ty Basurtotal US ABDOMINAL PARACENTESIS 2021-02-01 17:30:00 [facility] IMAGING AEROBIC CULTURE 2021-02-01 17:00:00 [facility] ANAEROBIC CULTURE 2021-02-01 17:00:00 [facility] GRAM STAIN 2021-02-01 17:00:00 Herberth Awad carrie Marcello REma CELL COUNT AND 2021-02-01 17:00:00 [facility] DIFFERENTIAL, BODY FLUID PROTEIN, [facility] FLUID 2021-02-01 17:00:00 [facility] LDH, [facility] FLUID 2021-02-01 17:00:00 [facility] ALBUMIN, [facility] FLUID 2021-02-01 17:00:00 [facility] PH, MISC FLUID 2021-02-01 17:00:00 [facility] GLUCOSE LEVEL, MISC FLUID 2021-02-01 17:00:00 [facility] AMYLASE LEVEL, [facility] FLUID 2021-02-01 17:00:00 [facility] Marcello R. POC GLUCOSE 2021-02-01 15:25:00 Ty Basurto spital COMPREHENSIVE METABOLIC 2021-02-01 12:30:00 Ronda [facility] PANEL ESTIMATED GFR 2021-02-01 12:30:00 Ty Basurto HC COMPLETE BLD COUNT 2021-02-01 10:31:00 [facility] W/AUTO DIFF PHOSPHORUS LEVEL 2021-02-01 10:31:00 [facility] MAGNESIUM LEVEL 2021-02-01 10:31:00 [facility] COMPREHENSIVE METABOLIC 2021-02-01 10:31:00 [facility] PANEL ESTIMATED GFR 2021-02-01 10:31:00 Ty Basurto spital POC GLUCOSE 2021-02-01 04:07:00 Ty Basurto spital ECG 12-LEAD 2021-02-01 03:51:51 [facility] LIPID PANEL 2021-02-01 03:48:00 [facility] HEMOGLOBIN A1C 2021-02-01 03:48:00 [facility] B NATRIURETIC PEPTIDE 2021-02-01 03:48:00 [facility] COVID-19 QUALITATIVE 2021-01-31 23:23:00 [facility] RT-PCR Marcello León POC GLUCOSE 2021-01-31 21:14:00 [facility] spital Marcello R. XR CHEST 1 VW PORTABLE 2021-01-31 20:41:00 Reba Whelan [facility] PROTHROMBIN TIME WITH INR 2021-01-31 20:14:00 Reba Whelan [facility] PARTIAL THROMBOPLASTIN 2021-01-31 20:14:00 Sn Tipehlove Conklin [facility] TIME (PTT) MT CRITICAL CARE, E/M 2021-01-31 20:06:18 [facility] 30-74 MINUTES Marcello León HC COMPLETE BLD COUNT 2021-01-31 18:50:00 Shana Mendoza [facility] W/AUTO DIFF COMPREHENSIVE METABOLIC 2021-01-31 18:50:00 [facility] PANEL ESTIMATED GFR 2021-01-31 18:50:00 [facility] PARTIAL THROMBOPLASTIN 2021-01-25 18:32:00 [facility] TIME (PTT) PROTHROMBIN TIME WITH INR 2021-01-25 18:32:00 [facility] FIBRINOGEN 2021-01-25 18:32:00 Breezy [facility] Herberth Boyd spital COMPREHENSIVE METABOLIC 2021-01-25 18:32:00 [facility] PANEL HC COMPLETE BLD COUNT 2021-01-25 18:32:00 [facility] W/AUTO DIFF ESTIMATED GFR 2021-01-25 18:32:00 Breezy Rupindernick Boyd spital AEROBIC CULTURE 2021-01-05 19:10:00 Krissy Karleileen Kevin spital ANAEROBIC CULTURE 2021-01-05 19:10:00 Krissy [facility] US ABDOMINAL PARACENTESIS 2021-01-05 18:31:30 Krissy [facility] IMAGING GRAM STAIN 2021-01-05 18:10:00 Krissy Karleileen Kevin spital AMYLASE LEVEL, [facility] FLUID 2021-01-05 18:10:00 Krissy [facility] ALBUMIN, [facility] FLUID 2021-01-05 18:10:[address] [facility] PROTEIN, [facility] FLUID 2021-01-05 18:10:[address] [facility] LDH, [facility] FLUID 2021-01-05 18:10:00 Krissy [facility] Jew spital TRIGLYCERIDES, [facility] FLUID 2021-01-05 18:10:00 [facility] CELL COUNT AND 2021-01-05 18:10:00 Karl Oakes spital DIFFERENTIAL, BODY FLUID CYTOLOGY 2021-01-05 18:10:00 Karl Oakes spital (NON-GYNECOLOGICAL) REQUEST US ABDOMINAL PARACENTESIS 2020-12-22 19:25:20 [facility]AGING AMYLASE LEVEL, [facility] FLUID 2020-12-22 18:50:00 [facility] ALBUMIN, MISC FLUID 2020-12-22 18:50:00 [facility] PROTEIN, MIS FLUID 2020-12-22 18:50:00 [facility]yThe [facility] LDH, MISC FLUID 2020-12-22 18:50:00 Karl Oakes spital TRIGLYCERIDES, [facility] 2020-12-22 18:50:00 [facility] CELL COUNT AND 2020-12-22 18:50:00 Karl Oakes spital DIFFERENTIAL, BODY FLUID CYTOLOGY 2020-12-22 18:50:00 Karl Oakes spital (NON-GYNECOLOGICAL) REQUEST AEROBIC CULTURE 2020-12-22 18:20:00 Karl Oakes spital ANAEROBIC CULTURE 2020-12-22 18:20:00 [facility]AIN 2020-12-22 18:20:00 Karl Oakes spital US ABDOMINAL PARACENTESIS 2020-12-09 21:00:00 Krissy [facility] IMAGING ANAEROBIC CULTURE 2020-12-09 19:42:00 [facility]EROB[facility] CULT[facility] 2020-12-09 19:42:00 Karl Oakes spital GRAM STAIN 2020-12-09 19:42:00 Karl Oakes spital CELL COUNT AND 2020-12-09 19:42:00 Karl Oakes spital DIFFERENTIAL, BODY FLUID [facility]YLASE LEVEL, [facility] 2020-12-09 19:42:00 Krissy [facility] LDH, [facility] FLUID 2020-12-09 19:42:00 Karl Oakes spital TRIGLYCERIDES, [facility] FLUID 2020-12-09 19:42:00 [facility] PROTEIN, MIS FLUID 2020-12-09 19:42:[address] [facility] ALBUMIN, [facility] FLUID 2020-12-09 19:42:[address] [facility] CYTOLOGY 2020-12-09 19:42:00 Karl Oakes spital (NON-GYNECOLOGICAL) REQUEST HC COMPLETE BLD COUNT 2020-12-09 16:34:00 Krissy [facility] W/AUTO DIFF COMPREHENSIVE METABOLIC 2020-12-09 16:34:00 Krissy [facility] PANEL FIBRINOGEN 2020-12-09 16:34:00 Karl Oakes spital PROTHROMBIN TIME WITH INR 2020-12-09 16:34:00 Krissy [facility] ESTIMATED GFR 2020-12-09 16:34:00 Karl Oakes spital ALBUMIN, [facility] FLUID 2020-11-16 22:17:[address] [facility] AMYLASE LEVEL, [facility] FLUID 2020-11-16 22:17:00 Krissy [facility] LDH, [facility] FLUID 2020-11-16 22:17:00 Karl Oakes spital PROTEIN, [facility] FLUID 2020-11-16 22:17:00 [facility] TRIGLYCERIDES, [facility] FLUID 2020-11-16 22:17:00 [facility] CELL COUNT AND 2020-11-16 22:17:00 Karl Oakes spital DIFFERENTIAL, BODY FLUID US ABDOMINAL PARACENTESIS 2020-11-16 20:19:14 [facility] CYTOLOGY 2020-11-16 19:50:00 Karl Oakes spital (NON-GYNECOLOGICAL) REQUEST AEROBIC CULTURE 2020-11-16 17:39:00 Karl Oakes spital GRAM STAIN 2020-11-16 17:39:[address] ABDOMEN W WO CONTRAST 2020-11-14 18:33:22 Krissy Karl [facility] FIBRINOGEN 2020-11-11 18:45:00 Karl Oakes spital PROTHROMBIN TIME WITH INR 2020-11-11 18:45:00 [facility] COMPREHENSIVE METABOLIC 2020-11-11 18:45[facility] WITH PLATELET AND 2020-11-11 18:45:00 [facility] BASIC METABOLIC PANEL 2020-11-03 18:14:00 [facility] CBC WITH PLATELET AND 2020-11-03 18:14:00 [facility] DIFFERENTIAL HE[facility] FUNCTION PANEL 2020-11-03 18:14:[facility] 2020-11-03 18:14:00 [facility] ABDOMINAL PARACENTESIS 2020-09-27 18:00:00 [facility] IMAGING AEROBIC CULTURE 2020-09-27 17:30:00 [facility] GRAM STAIN 2020-09-27 17:30:00 [facility] ANAEROBIC CULTURE 2020-09-27 17:30:00 [facility]UID 2020-09-27 17:30:00 [facility] AMYL[facility] LEV[facility], [facility] FLUID 2020-09-27 17:30:00 [facility] PROTEIN, [facility] FLUID 2020-09-27 17:30:00 [facility], [facility] FLUID 2020-09-27 17:30:00 Karl Oakes spital TRIGLYCERIDES, MISC FLUID 2020-09-27 17:30:[address] [facility] CELL COUNT AND 2020-09-27 17:30:00 Karl Oakes DIFFERENTIAL, BODY FLUID CYTOLOGY 2020-09-27 17:30:00 Karl Oakes spidustin (NON-GYNECOLOGICAL) REQUEST POC GLUCOSE 2020-07-26 13:11:00 Jose Ford HC COMPLETE BLD COUNT 2020-07-26 10:11:00 [facility] W/AUTO DIFF COMPREHENSIVE METABOLIC 2020-07-26 10:11:[address] [facility] PANEL MAGNESIUM LEVEL 2020-07-26 10:11:00 [facility] PHOSPHORUS LEVEL 2020-07-26 10:11:00 [facility] PROTHROMBIN TIME WITH INR 2020-07-26 10:11:00 [facility] PARTIAL THROMBOPLASTIN 2020-07-26 10:11:[address] [facility] TIME (PTT) ESTIMATED GFR 2020-07-26 10:11:00 [facility] 2020-07-26 10:08:00 Jose Ford POC GLUCOSE 2020-07-26 07:05:00 Jose Ford POC GLUCOSE 2020-07-26 02:53:00 LilianaJose childers POC GLUCOSE 2020-07-25 22:02:00 LilianaJose childers POC GLUCOSE 2020-07-25 16:31:00 LilianaJose childers osleticiatal Farrukh POC GLUCOSE 2020-07-25 12:55:00 [facility] COMPLETE BLD COUNT 2020-07-25 09:46:00 [facility] W/AUTO DIFF COMPREHENSIVE METABOLIC 2020-07-25 09:46:[address] [facility] PANEL MAGNESIUM LEVEL 2020-07-25 09:46:00 [facility] PHOSPHORUS LEVEL 2020-07-25 09:46:00 [facility] PROTHROMBIN TIME WITH INR 2020-07-25 09:46:00 [facility] PARTIAL THROMBOPLASTIN 2020-07-25 09:46:[address] [facility] TIME (PTT) ESTIMATED GFR 2020-07-25 09:46:00 [facility]SE 2020-07-25 09:40:00 [facility]SE 2020-07-25 05:20:00 [facility] GLU[facility]SE 2020-07-25 01:37:00 [facility] POC GLUCOSE 2020-07-24 21:13:00 [facility] POC GLUCOSE 2020-07-24 16:55:00 [facility] GLU[facility]SE 2020-07-24 13:10:00 [facility] HC COMPLETE BLD COUNT 2020-07-24 08:43:00 [facility] W/AUTO DIFF COMPREHENSIVE METABOLIC 2020-07-24 08:43:[address] [facility] PANEL MAGNESIUM LEVEL 2020-07-24 08:43:00 [facility] PHOSPHORUS LEVEL 2020-07-24 08:43:00 [facility] PROTHROMBIN TIME WITH INR 2020-07-24 08:43:00 [facility] PARTIAL THROMBOPLASTIN 2020-07-24 08:43:[address] [facility] TIME (PTT) ESTIMATED GFR 2020-07-24 08:43:00 Shana Mendoza [facility] POC GLUCOSE 2020-07-24 08:39:00 [facility] POC GLUCOSE 2020-07-24 05:09:00 [facility] POC GLUCOSE 2020-07-24 01:28:00 [facility] POC GLUCOSE 2020-07-23 23:13:00 [facility] POC GLUCOSE 2020-07-23 20:39:00 [facility] XR HIP 3-4 VIEWS BILATERAL 2020-07-23 19:58:00 [facility] XR LUMBAR SPINE COMPLETE 2020-07-23 19:57:00 [facility] 4+ VW POC GLUCOSE 2020-07-23 16:13:00 [facility] POC GLUCOSE 2020-07-23 13:06:00 [facility] POC GLUCOSE 2020-07-23 11:35:00 [facility] POC GLUCOSE 2020-07-23 10:31:00 [facility] HC COMPLETE BLD COUNT 2020-07-23 09:03:00 [facility] W/AUTO DIFF COMPREHENSIVE METABOLIC 2020-07-23 09:03:[address] [facility] PANEL MAGNESIUM LEVEL 2020-07-23 09:03:00 [facility] PHOSPHORUS LEVEL 2020-07-23 09:03:00 [facility] PROTHROMBIN TIME WITH INR 2020-07-23 09:03:00 [facility] PARTIAL THROMBOPLASTIN 2020-07-23 09:03:[address] [facility] TIME (PTT) ESTIMATED GFR 2020-07-23 09:03:00 Shana Mendoza [facility] POC GLUCOSE 2020-07-23 07:06:00 [facility] POC GLUCOSE 2020-07-23 02:11:00 [facility] POC GLUCOSE 2020-07-22 22:33:00 Carl, [facility] POC GLUCOSE 2020-07-22 20:14:[address] [facility] US ABDOMINAL DOPPLER 2020-07-22 19:00:00 [facility] POC GLUCOSE 2020-07-22 18:43:[address] [facility] US HEPATIC 2020-07-22 18:10:00 [facility] US ABDOMINAL PARACENTESIS 2020-07-22 17:40:00 [facility] IMAGING AFB STAIN 2020-07-22 17:34:00 [facility] AFB CULTURE 2020-07-22 17:34:00 [facility] AEROBIC CULTURE 2020-07-22 17:34:00 [facility] ANAEROBIC CULTURE 2020-07-22 17:34:00 [facility] GRAM STAIN 2020-07-22 17:34:00 Kelly [facility] LDH, [facility] FLUID 2020-07-22 17:33:00 [facility] PROTEIN, [facility] FLUID 2020-07-22 17:33:00 [facility] CELL COUNT AND 2020-07-22 17:33:00 [facility] DIFFERENTIAL, BODY FLUID ALBUMIN, [facility] FLUID 2020-07-22 17:33:00 [facility] BILIRUBIN TOTAL, [facility] 2020-07-22 17:33:00 [facility] FLUID PH, [facility] FLUID 2020-07-22 17:33:00 [facility] GLUCOSE LEVEL, [facility] FLUID 2020-07-22 17:33:00 Jaya [facility] TRIGLYCERIDES, MISC FLUID 2020-07-22 17:33:00 MaeganneBonny couch [facility] TTE COMPLETE, WO CONTRAST, 2020-07-22 16:01:45 [facility] W DOPPLER (31070) ECG 12-LEAD 2020-07-22 14:13:26 [facility] POC GLUCOSE 2020-07-22 13:14:00 [facility]SE 2020-07-22 10:08:00 [facility] ANTI MITOCHONDRIA SCREEN 2020-07-22 06:26:00 [facility] HC COMPLETE BLD COUNT 2020-07-22 06:26:00 [facility] W/AUTO DIFF HEPATITIS A ANTIBODY IGM 2020-07-22 06:25:00 [facility]ais HEPATITIS B SURFACE 2020-07-22 06:25:00 [facility] ANTIGEN Awais HEPATITIS B CORE ANTIBODY 2020-07-22 06:25:00 [facility] TOTAL Awais HEPATITIS C ANTIBODY 2020-07-22 06:25:00 [facility] IMMUNOGLOBULIN M 2020-07-22 06:24:00 [facility] CANCER ANTIGEN 19-9 2020-07-22 06:24:00 [facility] COMPREHENSIVE METABOLIC 2020-07-22 06:24:[address] [facility] PANEL MAGNESIUM LEVEL 2020-07-22 06:24:00 [facility] PHOSPHORUS LEVEL 2020-07-22 06:24:00 [facility] ESTIMATED GFR 2020-07-22 06:24:00 Shana Mendoza [facility] ALPHA FETOPROTEIN 2020-07-22 06:23:00 [facility]ais CARCINOEMBRYONIC ANTIGEN 2020-07-22 06:23:00 [facility] ([facility]) Awais POC GLUCOSE 2020-07-22 06:21:00 [facility] PROTHROMBIN TIME WITH INR 2020-07-22 06:20:00 [facility] PARTIAL THROMBOPLASTIN 2020-07-22 06:20:[address] [facility] TIME (PTT) POC GLUCOSE 2020-07-22 03:01:00 [facility] POC GLUCOSE 2020-07-22 01:52:[address] [facility] [address] CHEST WO CONTRAST 2020-07-22 00:00:04 [facility] ANTI SMOOTH MUSCLE AB 2020-07-21 21:20:00 [facility] SCREEN KYLIE 2020-07-21 21:20:00 [facility] HIV AG/AB COMBINATION 2020-07-21 21:20:00 [facility] TROPONIN 2020-07-21 21:20:00 [facility] PROCALCITONIN 2020-07-21 21:20:00 [facility] HEPATITIS ACUTE PANEL 2020-07-21 21:20:00 [facility] ALCOHOL LEVEL, BLOOD 2020-07-21 21:20:00 [facility] ANTI SMOOTH MUSCLE AB 2020-07-21 21:20:00 [facility] TITER BLOOD CULTURE, AEROBIC & 2020-07-21 21:18:00 [facility] ANAEROBIC COVID-19 QUALITATIVE 2020-07-21 21:18:00 [facility] RT-PCR BLOOD CULTURE, AEROBIC & 2020-07-21 21:17:00 [facility] ANAEROBIC LACTIC ACID LEVEL 2020-07-21 20:17:00 [facility] PROCALCITONIN 2020-07-21 20:17:00 [facility] FERRITIN LEVEL 2020-07-21 20:17:00 [facility] FOLATE LEVEL 2020-07-21 20:17:00 [facility] LDH 2020-07-21 20:17:00 [facility] TOTAL IRON BINDING 2020-07-21 20:17:00 [facility] CAPACITY THYROID STIMULATING 2020-07-21 20:17:00 [facility] HORMONE VITAMIN B12 LEVEL 2020-07-21 20:17:00 [facility] TROPONIN 2020-07-21 20:17:[address] [facility] [address] RENAL STONE PROTOCOL 2020-07-21 20:09:37 [facility] MT CRITICAL CARE, E/M 2020-07-21 18:35:43 [facility] 30-74 MINUTES XR CHEST 1 VW PORTABLE 2020-07-21 18:06:[address] [facility] URINE CULTURE 2020-07-21 17:25:00 [facility] HC COMPLETE BLD COUNT 2020-07-21 17:25:00 [facility] W/AUTO DIFF COMPREHENSIVE METABOLIC 2020-07-21 17:25:00 [facility] PANEL LIPASE LEVEL 2020-07-21 17:25:00 [facility] URINALYSIS SCREEN AND 2020-07-21 17:25:00 [facility] MICROSCOPY, WITH REFLEX TO CULTURE PHOSPHORUS LEVEL 2020-07-21 17:25:00 [facility] MAGNESIUM LEVEL 2020-07-21 17:25:00 [facility] TROPONIN 2020-07-21 17:25:00 [facility] B NATRIURETIC PEPTIDE 2020-07-21 17:25:00 [facility] AMMONIA LEVEL 2020-07-21 17:25:00 Mendoza, [facility] ESTIMATED GFR 2020-07-21 17:25:00 Mendoza, [facility] PROTHROMBIN TIME WITH INR 2020-07-21 17:25:00 Mendoza, [facility] PARTIAL THROMBOPLASTIN 2020-07-21 17:25:00 [facility] TIME (PTT[facility] LIPID PANEL 2020-07-21 17:25:00 [facility] PROCALCITONIN 2020-07-21 17:25:00 [facility] FERRITIN LEVEL 2020-07-21 17:25:00 [facility] TOTAL IRON BINDING 2020-07-21 17:25:00 Mendoza, [facility] CAPACITY LDH 2020-07-21 17:25:00 [facility] THYROID STIMULATING 2020-07-21 17:25:00 [facility] HORMONE GGT 2020-07-21 17:25:00 [facility] BILIRUBIN DIRECT 2020-07-21 17:25:00 [facility] HEMOGLOBIN A1C 2020-07-21 17:25:00 [facility] FIBRINOGEN 2020-07-21 17:25:00 [facility] D-DIMER 2020-07-21 17:25:00 [facility] ACETAMINOPHEN LEVEL 2020-07-21 17:25:00 [facility] LIPID PANEL 2020-06-16 01:05:00 Alhaji George [facility] HEMATOCRIT 2020-06-16 01:05:00 Alhaji George [facility] ESTRADIOL 2020-06-16 01:05:00 Doris [facility] PROLACTIN 2020-06-16 01:05:00 [facility] TESTOSTERONE, FREE/TOTAL 2020-06-16 01:05:00 Alhaji George I [facility] Medicine Plan of Care Planned Activity Planned Date Details Comments Source Future Scheduled 2021-04-05 DIABETES: RETINAL EYE [facility] Test 00:30:01 EXAM [code = DIABETES: RETINAL EYE EXAM] Future Scheduled 2021-04-05 DIABETIC FOOT EXAM [facility] [address] [facility] Test 00:30:01 [code = DIABETIC FOOT EXAM] Future Scheduled 2021-04-05 [facility]ING[facility]IN[facility] 00:30[facility]01 [code = SHINGLES VACCINES (#1)] Future Scheduled 2021-04-05 65+ [facility]OCOCCAL [facility] 00:30:01 VACCINE (2 of 4 - PPSV23) [code = 65+ PNEUMOCOCCAL VACCINE (2 of 4 - PPSV23)] Future Scheduled 2021-04-05 COVID-19 VACCINE (2 - [facility] Test 00:30:01 Moderna 3-dose series) [code = COVID-19 VACCINE (2 - Moderna 3-dose series)] Future Scheduled 2021-04-05 INFLUENZA VACCINE [facility] Test 00:30:01 [code = INFLUENZA VACCINE] Future Scheduled TETANUS SHOT (ADULT) [facility] of Test [code = TETANUS SHOT Medicin e (ADULT)] Future Scheduled COVID-19 Vaccine (1) [facility] [code = COVID-19 Medicine Vaccine (1)] Future Scheduled ZOSTER VACCINE (1 of [facility] Test 2) [code = ZOSTER Medicine VACCINE (1 of 2)] Future Scheduled MEDICARE AWV (Initial) [facility] Test [code = MEDICARE AWV Medicin e (Initial)] Future Scheduled FALL SCREEN [code = [facility] of Test FALL SCREEN] Medicine Future Scheduled PNEUMOVAX >=65 [facility] of Test (PPSV23) [code = Medicine PNEUMOVAX >=65 (PPSV23)] Future Scheduled FLU VACCINE > 6 MONTHS [facility] Test [code = FLU VACCINE > Medici ne 6 MONTHS] Encounters Start End Encounter Admission Attending Care Care Encounter Source Date/Time Date/Time Type Type Clinicians Facility Department ID 2021-07-25 2021-07-25 Outpatient R [facility] [id number] [facility] 10:15:00 10:15:00 [id number] ity [facility] 2021-06-15 2021-06-15 Outpatient TRESA, [facility] [id number] Nikolai 00:00:00 00:00:00 SHANA [address] 2021-06-15 2021-06-15 Outpatient TRESA, [facility] [id number] Nikolai 00:00:00 00:00:00 SHANA [address] 2021-06-14 2021-06-14 Outpatient GTZ, [facility] [id number] Nikolai 00:00:00 00:00:00 SHANA 817 Method i 2021-06-12 2021-06-12 [id number] [facility] 11:30:00 11:30:00 BUCK [facility] 2021-06-12 2021-06-12 [facility] 1.2.840.114 [id number] [facility] 00:00:00 00:00:00 Buck Cope MULTISPEC 350.1.13.10 [facility] 4.2.7.[address] [facility] [id number] [address] DIABETES CLINIC 2021-05-31 2021-06-04 Inpatient TRANMARVIN [facility] [id number] Nikolai 00:00:00 00:00:[address] 2021-05-26 2021-05-26 Outpatient KRISSY, [facility] [id number] Nikolai 00:00:00 00:00:00 KARL 790 Method i 2021-05-24 2021-05-24 Outpatient TRESA, [facility] [id number] Nikolai 00:00:00 00:00:00 SHANA [address] 2021-05-24 2021-05-24 Outpatient TRESA, [facility] [id number] Nikolai 00:00:00 00:00:00 SHANA [address] 2021-05-18 2021-05-18 Outpatient KRISSY, [facility] [id number] Nikolai 00:00:00 00:00:00 KARL [address] 2021-05-11 2021-05-11 Outpatient KRISSY, [facility] [id number] Nikolai 00:00:00 00:00:00 KARL 524 Method i 2021-05-04 2021-05-04 Outpatient KRISSY, [facility] [id number] Nikolai 00:00:00 00:00:00 KARL 373 Method i 2021-04-28 2021-04-28 Outpatient KRISSY, [facility] [id number] Nikolai 00:00:00 00:00:00 KARL 850 Method i 2021-04-28 2021-04-28 Outpatient KRISSY, [facility] [id number] Nikolai 00:00:00 00:00:00 KARL 428 Method i 2021-04-27 2021-04-27 Outpatient KRISSY, [facility] [id number] Nikolai 00:00:00 00:00:00 KARL 033 Method i 2021-04-20 2021-04-20 Outpatient KRISSY, [facility] [id number] Nikolai 00:00:00 00:00:00 KARL 629 Method i 2021-04-13 2021-04-13 Outpatient KRISSY, [facility] [id number] Nikolai 00:00:00 00:00:00 KARL 193 Method i 2021-04-06 2021-04-06 Outpatient KRISSY, [facility] [id number] Nikolai 00:00:00 00:00:00 KARL 331 Method i 2021-04-03 2021-04-03 Office CARLOS Kenyon 1.2.840.114 [id number] [facility] 11:45:00 12:04:01 Visit Buck BAEZ 350.1.13.[address] [facility] [id number] [facility] tavares [place] [address] [address] [facility] 2021-03-31 2021-03-31 Janeen Fernandez 1.2.840.1 [id number] Methodi 00:00:00 00:00:00 Only Ayla 64181.1.1 664 3.430.2.7 Hospit a .3.636339 l .8 2021-03-31 2021-03-31 Janeen Oakes, 1.2.840.1 [id number] Methodi 00:00:00 00:00:00 Only Karl 30764.1.[address] 3.430.2.7 Hospit a .3.826608 l .8 2021-03-30 2021-03-30 [facility], 1.2.840.1 [id number] Nikolai 00:00:00 00:00:00 Encounter KARL 40303.1.1 [address] .3.117971 .8 2021-03-30 2021-03-30 Travel 1.2.840.1 1.2.373.278 [id number] Methodi 00:00:00 00:00:[address] 3.430.2.7 0.2.7.3.698 Ho spita .3.756024 084.8 l .8 2021-03-27 2021-03-27 [facility], 1.2.840.1 [id number] Methodi 12:50:50 13:52:12 Visit Karl 45989.1.[address] 3.430.2.7 Hospit a .3.042786 l .8 2021-03-27 2021-03-27 Travel 1.2.840.1 1.2.993.604 1074 [id number] Methodi 00:00:00 00:00:[address] 3.430.2.7 0.2.7.3.698 Ho spita .3.847483 084.8 l .8 2021-03-24 2021-03-24 Travel 1.2.840.1 1.2.610.549 [id number] Methodi 00:00:00 00:00:[address] 3.430.2.7 0.2.7.3.698 Ho spita .3.736595 084.8 l .8 2021-03-24 2021-03-24 Orders Serban, 1.2.840.1 [id number] Methodi 00:00:00 00:00:00 Only Ayla 17848.1.[address] 3.430.2.7 Hospit a .3.655662 l .8 2021-03-23 2021-03-23 [facility], 1.2.840.1 [id number] Nikolai 00:00:00 00:00:00 Encounter KARL 31120.1.1 [address] .3.447060 .8 2021-03-22 2021-03-22 Travel 1.2.840.1 1.2.928.080 [id number] Methodi 00:00:00 00:00:[address] 3.430.2.7 0.2.7.3.698 Ho spita .3.164190 084.8 l .8 2021-03-17 2021-03-17 Orders Serban, 1.2.840.1 [id number] Methodi 00:00:00 00:00:00 Only Ayla 05714.1.[address] 3.430.2.7 Hospit a .3.283600 l .8 2021-03-17 2021-03-17 Orders [facility], 1.2.840.1 [id number] Methodi 00:00:00 00:00:00 Only Karl 61853.1.[address] 3.430.2.7 Hospit a .3.392570 l .8 2021-03-16 2021-03-16 [facility], 1.2.840.1 [id number] Nikolai 00:00:00 00:00:00 Encounter KARL 17135.1.1 [address] .3.315580 .8 2021-03-16 2021-03-16 Orders [facility], 1.2.840.1 [id number] Methodi 00:00:00 00:00:00 Only Karl 09525.1.[address] 3.430.2.7 Hospit a .3.529766 l .8 2021-03-16 2021-03-16 Travel 1.2.840.1 1.2.165.533 [id number] [id number] Methodi 00:00:00 00:00:[address] 3.430.2.7 0.2.7.3.698 Ho spita .3.948467 084.8 l .8 2021-03-13 2021-03-13 Orders Serban, 1.2.840.1 [id number] Methodi 00:00:00 00:00:00 Only Ayla 57285.1.[address] 3.430.2.7 Hospit a .3.702833 l .8 2021-03-09 2021-03-09 [facility], 1.2.840.1 [id number] Nikolai 00:00:00 00:00:00 Encounter KARL 83345.1.1 [address] .3.936639 .8 2021-03-09 2021-03-09 Travel 1.2.840.1 1.2.868.881 [id number] Methodi 00:00:00 00:00:[address] 3.430.2.7 0.2.7.3.698 Ho spita .3.009596 084.8 l .8 2021-03-03 2021-03-03 [facility], 1.2.840.1 [id number] Methodi 00:00:00 00:00:00 Only Karl 66533.1.[address] 3.430.2.7 Hospit a .3.365062 l .8 2021-02-28 2021-02-28 Travel 1.2.840.1 1.2.149.132 [id number] Methodi 00:00:00 00:00:[address] 3.430.2.7 0.2.7.3.698 Ho spita .3.577337 084.8 l .8 2021-02-23 2021-02-23 [facility], 1.2.840.1 [id number] Methodi 12:47:03 23:59:00 Encounter Karl [address]843.1.[address] 3.430.2.7 Hospit a .3.328411 l .8 2021-02-23 2021-02-23 Travel 1.2.840.1 1.2.471.140 [id number] [id number] Methodi 00:00:00 00:00:[address] 3.430.2.7 0.2.7.3.698 Ho spita .3.118743 084.8 l .8 2021-02-20 2021-02-20 Travel 1.2.840.1 1.2.885.541 0546 [id number] Methodi 00:00:00 00:00:[address] 3.430.2.7 0.2.7.3.698 Ho spita .3.560044 084.8 l .8 2021-02-17 2021-02-17 [facility] 1.2.840.1 [id number] 1063 Methodi 11:50:54 12:50:17 Visit Karl 25310.1.[address] 3.430.2.7 Hospit a .3.598946 l .8 2021-02-17 2021-02-17 Travel 1.2.840.1 1.2.805.621 0693 [id number] Methodi 00:00:00 00:00:[address] 3.430.2.7 0.2.7.3.698 Ho spita .3.455160 084.8 l .8 2021-02-16 2021-02-16 [facility], 1.2.840.1 [id number] Methodi 00:00:00 00:00:00 Only Ayla 89654.1.[address] 3.430.2.7 Hospit a .3.235515 l .8 2021-02-15 2021-02-15 [facility], 1.2.840.1 [id number] Methodi 13:00:00 23:59:00 Encounter Rupinder 03737.1.[address] 3.430.2.7 Hospit a .3.939778 l .8 2021-02-15 2021-02-15 Travel 1.2.840.1 1.2.671.895 4567 [id number] Methodi 00:00:00 00:00:[address] 3.430.2.7 0.2.7.3.698 Ho spita .3.469411 084.8 l .8 2021-02-06 2021-02-06 Travel 1.2.840.1 1.2.623.681 5230 [id number] Methodi 00:00:00 00:00:[address] 3.430.2.7 0.2.7.3.698 Ho spita .3.525701 084.8 l .8 2021-02-03 2021-02-03 [facility], 1.2.840.1 [id number] 8031 Methodi 00:00:00 00:00:00 Only Karl 29211.1.[address] 3.430.2.7 Hospit a .3.478987 l .8 2021-02-02 2021-02-02 [facility], 1.2.840.1 [id number] 69928 Methodi 23:59:00 23:59:00 Encounter Rupinder 56801.1.[address] 3.430.2.7 Hospit a .3.312137 l .8 2021-01-31 2021-02-01 Emergency Marcello Awad.2.8 40.1 [id number] Methodi 12:23:00 15:20:00 Ty Basurto 89540.1.[address] 3.430.2.7 Hospit a .3.639467 l .8 2021-01-31 2021-01-31 Travel 1.2.840.1 1.2.879.132 8588 648847 Methodi 00:00:00 00:00:[address] 3.430.2.7 0.2.7.3.698 Ho spita .3.851129 084.8 l .8 2021-01-30 2021-01-30 [facility], 1.2.840.1 [id number] 49109 Methodi 23:59:00 23:59:00 Encounter Rupinder 49307.1.[address] 3.430.2.7 Hospit a .3.962801 l .8 2021-01-25 2021-01-25 [facility], 1.2.840.1 [id number] 0807 Methodi 11:50:15 11:55:[address] 3.430.2.7 Hospit a .3.879668 l .8 2021-01-25 2021-01-25 Travel 1.2.840.1 1.2.363.893 2822 140820 Methodi 00:00:00 00:00:[address] 3.430.2.7 0.2.7.3.698 Ho spita .3.561896 084.8 l .8 2021-01-24 2021-01-24 [facility] 1.2.840.1 [id number] Methodi 11:12:18 11:29:32 ne Rupinder 86352.1.[address] 3.430.2.7 Hospit a .3.913948 l .8 2021-01-06 2021-01-06 [facility], 1.2.840.1 [id number] 0861 Methodi 00:00:00 00:00:00 Only Karl 39920.1.[address] 3.430.2.7 Hospit a .3.526338 l .8 2021-01-05 2021-01-05 [facility] 1.2.840.1 [id number] 68582 Methodi 11:02:36 23:59:00 Encounter Karl 89522.1.[address] 3.430.2.7 Hospit a .3.194522 l .8 2021-01-05 2021-01-05 Travel 1.2.840.1 1.2.971.174 2138 380894 Methodi 00:00:00 00:00:[address] 3.430.2.7 0.2.7.3.698 Ho spita .3.025283 084.8 l .8 2020-12-27 2020-12-27 Travel 1.2.840.1 1.2.853.471 2297 [id number] Methodi 00:00:00 00:00:[address] 3.430.2.7 0.2.7.3.698 Ho spita .3.634450 084.8 l .8 2020-12-22 2020-12-22 [facility] 1.2.840.1 [id number] Methodi 12:57:15 23:59:00 Encounter Karl 90805.1.[address] 3.430.2.7 Hospit a .3.436181 l .8 2020-12-22 2020-12-22 Travel 1.2.840.1 1.2.168.386 4504 561192 Methodi 00:00:00 00:00:[address] 3.430.2.7 0.2.7.3.698 Ho spita .3.542792 084.8 l .8 2020-12-20 2020-12-20 Travel 1.2.840.1 1.2.019.637 3896 275338 Methodi 00:00:00 00:00:[address] 3.430.2.7 0.2.7.3.698 Ho spita .3.993533 084.8 l .8 2020-12-09 2020-12-09 [facility], 1.2.840.1 [id number] 91707 Methodi 12:41:04 23:59:00 Encounter Karl 51873.1.[address] 3.430.2.7 Hospit a .3.360233 l .8 2020-12-09 2020-12-09 [facility], 1.2.840.1 [id number] 7947 Methodi 11:15:03 11:20:[address] 3.430.2.7 Hospit a .3.284638 l .8 2020-12-09 2020-12-09 [facility], 1.2.840.1 [id number] 4410 Methodi 09:59:53 10:53:14 Visit Karl 05103.1.[address] 3.430.2.7 Hospit a .3.667533 l .8 2020-12-09 2020-12-09 [facility], 1.2.840.1 [id number] 4252 Methodi 00:00:00 00:00:00 Only Karl 01245.1.[address] 3.430.2.7 Hospit a .3.189011 l .8 2020-12-08 2020-12-08 Travel 1.2.840.1 1.2.679.968 6593 [id number] Methodi 00:00:00 00:00:[address] 3.430.2.7 0.2.7.3.698 Ho spita .3.341050 084.8 l .8 2020-11-16 2020-11-16 [facility], 1.2.840.1 [id number] 70627 07793 Methodi 12:39:10 23:59:00 Encounter Karl 57218.1.[address] 3.430.2.7 Hospit a .3.714331 l .8 2020-11-16 2020-11-16 Travel 1.2.840.1 1.2.152.673 3259 709347 Methodi 00:00:00 00:00:[address] 3.430.2.7 0.2.7.3.698 Ho spita .3.172585 084.8 l .8 2020-11-14 2020-11-14 [facility], 1.2.840.1 [id number] 64976 Methodi 12:33:53 23:59:00 Encounter Karl 02553.1.[address] 3.430.2.7 Hospit a .3.298600 l .8 2020-11-14 2020-11-14 Travel 1.2.840.1 1.2.708.279 0646 818969 Methodi 00:00:00 00:00:[address] 3.430.2.7 0.2.7.3.698 Ho spita .3.005068 084.8 l .8 2020-11-11 2020-11-11 [facility], 1.2.840.1 [id number] 4471 Methodi 11:26:15 12:44:45 Visit Karl 06906.1.[address] 3.430.2.7 Hospit a .3.340931 l .8 2020-11-11 2020-11-11 Travel 1.2.840.1 1.2.028.577 7690 654407 Methodi 00:00:00 00:00:[address] 3.430.2.7 0.2.7.3.698 Ho spita .3.325814 084.8 l .8 2020-11-10 2020-11-10 [facility], 1.2.840.1 [id number] 026162 5954 Methodi 00:00:00 00:00:00 Only Ayla 65374.1.[address] 3.430.2.7 Hospit a .3.058138 l .8 2020-11-09 2020-11-09 [facility], 1.2.840.1 [id number] 032724 8487 Methodi 00:00:00 00:00:00 Only Ayla 88980.1.[address] 3.430.2.7 Hospit a .3.423929 l .8 2020-09-21 2020-10-13 Office [facility], 1.2.840.1 [id number] 1976 Methodi 09:53:51 16:26:53 Visit Karl 16388.1.[address] 3.430.2.7 Hospit a .3.646898 l .8 2020-09-27 2020-09-27 [facility], 1.2.840.1 [id number] 74926 92023 Methodi 10:00:00 23:59:00 Encounter Karl [address]495.1.[address] 3.430.2.7 Hospit a .3.227778 l .8 2020-09-27 2020-09-27 Travel 1.2.840.1 1.2.530.818 3189 716050 Methodi 00:00:00 00:00:[address] 3.430.2.7 0.2.7.3.698 Ho spita .3.712922 084.8 l .8 2020-08-31 2020-09-22 [facility], 1.2.840.1 [id number] 303041 0077 Methodi 09:51:14 00:45:44 Visit Karl 77440.1.[address] 3.430.2.7 Hospit a .3.378685 l .8 2020-09-22 2020-09-22 Refill [facility], 1.2.840.1 [id number] 4993 Methodi 00:00:00 00:00:[address] 3.430.2.7 Hospit a .3.870500 l .8 2020-09-22 2020-09-22 Refill [facility], 1.2.840.1 [id number] 9494 Methodi 00:00:00 00:00:[address] 3.430.2.7 Hospit a .3.303255 l .8 2020-09-22 2020-09-22 Refjoan Oakes, 1.2.840.1 [id number] 0755 Methodi 00:00:00 00:00:[address] 3.430.2.7 Hospit a .3.572722 l .8 2020-09-21 2020-09-21 Travel 1.2.840.1 1.2.700.108 0316 302933 Methodi 00:00:00 00:00:[address] 3.430.2.7 0.2.7.3.698 Ho spita .3.289810 084.8 l .8 2020-09-01 2020-09-01 Telephone [facility] 1.2.840.1 [id number] Methodi 00:00:00 00:00:00 Fan blank 92686.1.[address] J 3.430.2.7 Hospit a .3.022378 l .8 2020-08-31 2020-08-31 Travel 1.2.840.1 1.2.233.122 8161 133334 Methodi 00:00:00 00:00:[address] 3.430.2.7 0.2.7.3.698 Ho spita .3.707256 084.8 l .8 2020-08-22 2020-08-22 Telephone Khoury, 1.2.840.1 [id number] 2099 563006 Methodi 00:00:00 00:00:00 Catina Quiroz 66748.1.[address] 3.430.2.7 Hospit a .3.666860 l .8 2020-08-17 2020-08-17 Office Tavares Awan 1.2.840.1 104 [id number] Methodi 13:08:55 13:23:55 Visit Alysa TrivediEma 94919.1.[address] 3.430.2.7 Hospit a .3.705754 l .8 2020-08-17 2020-08-17 Travel 1.2.840.1 1.2.281.524 8376 545535 Methodi 00:00:00 00:00:[address] 3.430.2.7 0.2.7.3.698 Ho spita .3.210513 084.8 l .8 2020-08-12 2020-08-12 Telephone [facility]houry, 1.2.840.1 [id number] Methodi 00:00:00 00:00:[address] 3.430.2.7 Hospit a .3.549259 l .8 2020-08-03 2020-08-03 Telephone Annabelle, 1.2.840.1 [id number] 192 [id number] Methodi 00:00:00 00:00:[address] 3.430.2.7 Hospit a .3.315349 l .8 2020-07-21 2020-07-26 [facility] Shana Mendoza 1.2.840.1 1040 53675 [id number] Methodi 11:18:00 15:20:00 Encounter Chau Henry 16326.1.[address] [place] 3.430.2.7 Hospita .3.913238 l .8 2020-07-22 2020-07-22 Camryn Zarate 1.2.840.1 [id number] Methodi 00:00:00 00:00:[address] 3.430.2.7 Hospit a .3.669476 l .8 2020-07-21 2020-07-21 Travel 1.2.840.1 1.2.629.455 6773 869657 Methodi 00:00:00 00:00:[address] 3.430.2.7 0.2.7.3.698 Ho spita .3.387564 084.8 l .8 2020-06-15 2020-06-15 Office Doris VANESSALana 1.2.840.114 803 83436 [facility] 17:18:35 19:40:39 Visit Alhaji Miles AMBULATOR 350.1.13.21 [employer] 0.2.7.2.686 550.9892505 [facility] kat 300 e 2020-05-23 2020-05-23 Office Kenyon [facility] 1.2.840.114 816 69152 15:04:57 15:52:06 Visit Buck Cope MULTISPEC 350.1.13.10 IALTY 4.2.7.2.686 CENTER [id number] [facility] Results Test Description Test Time Test Comments Results Result Comments Source SARS-CoV-2 (COVID-19) RNA [Presence] in Respiratory sp ecimen by 2021-06-01 05:47:20 KELTON with probe detection Test Item Value Reference Range Interpretation Comme nts SARS-CoV-2 (COVID-19) RNA [Presence] in Respiratory specimen by Not detected KELTON with probe detection (test code = 14652-5) Whether patient is employed in a healthcare setting (test code = Un known 80176-2) Whether the patient has symptoms related to condition of interest U nknown (test code = 34408-9) Whether the patient was hospitalized for condition of interest Unkn own (test code = 40730-2) Whether the patient was admitted to intensive care unit (ICU) for U nknown condition of interest (test code = 29135-9) Whether patient resides in a congregate care setting (test code = U nknown 35011-2) status (test code = 67204-6) Unknown Date and time of symptom onset (test code = 60405-3) Unknown Anaerobic [id number] 18:08:11 Test Item Value Reference Range Interpretation Comments Anaerobic No anaerobic Specimen culture isolate organisms InformationS pecimen (test code = isolated. Source: Periton eal 552) fluidSpecimen S ite: abdominal [facility] [id number] 23:36:50 Test Item Value Reference Range Interpretation Comments Aerobic culture No growth Specimen isolate (test after 3 days. InformationSp ecimen code = 498) Source: Periton eal fluidSpecimen S ite: abdominal [facility] HospitalCytology (non-gynecological) [id number] 18:50:20 Test Item Value Reference Range Interpretation Comments Case number (test code = [id number]) Cytology See link below for (non-gynecological) PDF Lab Report report (test code = 1178) Result status (test code This is Final Report = [id number]) for [id number] [facility] HospitalGram [id number] 22:54:39 Test Item Value Reference Range Interpretation Comments Gram stain No WBC's or Specimen isolate (test organisms seen. Information Specimen code = 1469) Source: Periton eal fluidSpecimen S ite: abdominal [facility] HospitalCell count and differential, body [id number] 21:11:13 Test Item Value Reference Range Interpretation Comments [facility] fluid type Peritoneal (test code = 32260-8) Color, fluid (test Yellow code = 6824-7) Appearance, fluid Slightly hazy (test code = 9335-1) RBC, fluid (test SEE COMMENT See_Comment 1+ (0 - 500 code = 34827-4) RBC/CMM) [Automated message] The system which generated this result transmit niranjan reference range : /CMM. The reference range was not used to interpret this result as normal/abnormal . Nucleated cells, See_Comment [Automated fluid (test code = message] The 29830-2) system which generated this result transmit niranjan reference range : /CMM. The reference range was not used to interpret this result as normal/abnormal . Fluid mononuclear See Diff cell (test code = 1407) Neutrophils, fluid 17 % (test code = 29806-1) Lymphocytes, fluid 42 % (test code = 70911-2) Macrophages, fluid 40 % (test code = 58805-3) Plasma cells, fluid 1 % (test code = 67213-7) TOÑA (test code = peritoneal fluid TOÑA) [facility] misc [id number] 20:04:51 Test Item Value Reference Range Interpretation Comments Fluid type Peritoneal (test code = 54011-0) Albumin, 0.3 g/dL The reference fluid (test interval(s) and other code = method performa nce 1747-5) specifications have not been establishe d for this body fluid . The test results mu st be integrated into the clinical contex t for interpretation. This test has been m odified from the [facility] instructions. The performance characteristics were determined by Fuad chan in a manner consiste nt with CLIA requiremen ts. This test has n ot been cleared or appr jaida by the U.S. Food a nd Drug Administration. TOÑA (test peritoneal fluid code = TOÑA) [facility] [id number] 20:04:51 Test Item Value Reference Range Interpretation Comments Fluid type Peritoneal (test code = 83388-9) LDH, fluid 35 U/L The reference (test code = interval(s) and other 07174-8) method performa nce specifications have not been establishe d for this body fluid . The test results mu st be integrated into the clinical contex t for interpretation. This test has been m odified from the [facility] instructions. The performance characteristics were determined by Fuad chan in a manner consiste nt with CLIA requiremen ts. This test has n ot been cleared or appr jaida by the U.S. Food a nd Drug Administration. TOÑA (test peritoneal fluid code = TOÑA) [facility] [id number] 20:04:51 Test Item Value Reference Range Interpretation Comments Fluid type Peritoneal (test code = 96889-6) Protein, 0.8 g/dL The reference fluid (test interval(s) and other code = method performa nce 2881-1) specifications have not been establishe d for this body fluid . The test results mu st be integrated into the clinical contex t for interpretation. This test has been m odified from the [facility] instructions. The performance characteristics were determined by Fuad chan in a manner consiste nt with CLIA requiremen ts. This test has n ot been cleared or appr jaida by the U.S. Food a nd Drug Administration. TOÑA (test peritoneal fluid code = TOÑA) [facility] HospitalTriglycerprime [facility] services, [facility] ryscy3724-28-02 20:04:51 Test Item Value Reference Range Interpretation Comments Fluid type Peritoneal (test code = 03350-1) Triglyceride, 41 mg/dL The reference fluid (test interval(s) and other code = method performa nce 86248-7) specifications have not been establishe d for this body fluid . The test results mu st be integrated into the clinical contex t for interpretation. This test has been m odified from the [facility] instructions. The performance characteristics were determined by Fuad chan in a manner consiste nt with CLIA requiremen ts. This test has n ot been cleared or appr jaida by the U.S. Food a nd Drug Administration. TOÑA (test peritoneal fluid code = TOÑA) [facility] HospitalAmylase level, [facility] asxsx5477-51-06 20:04:50 Test Item Value Reference Range Interpretation Comments Fluid type Peritoneal (test code = 49349-9) Amylase, 7 U/L The reference fluid (test interval(s) and other code = method performa nce 1795-4) specifications have not been establishe d for this body fluid . The test results mu st be integrated into the clinical contex t for interpretation. This test has been m odified from the [employer] instructions. The performance characteristics were determined by Fuad chan in a manner consiste nt with CLIA requiremen ts. This test has n ot been cleared or appr jaida by the U.S. Food a nd Drug Administration. TOÑA (test peritoneal fluid code = TOÑA) [facility] HospitalFungus svbnrlb5869-34-96 06:15:57 Test Item Value Reference Range Interpretation Comments Fungus culture No growth Specimen isolate (test after 4 weeks InformationSp ecimen code = 1441) of Source: Ascites incubation. FluidSpecimen S ite: Not otherwise speci fied [facility] HospitalAFB [id number] 19:33:31 Test Item Value Reference Range Interpretation Comments AFB stain No acid fast Specimen (test code = bacilli (AFB) InformationSpe [facility] 676-7) seen. Source: Ascites FluidSpecimen S ite: Not otherwise speci fied [facility] HospitalFungus aginj1228-52-70 19:01:58 Test Item Value Reference Range Interpretation Comments Fungus smear No fungi Specimen (test code = observed. InformationSpec imen Source: 5133) Ascites FluidSp ecimen Site: Not otherwise s pecified [facility] [id number] 22:02:18 Test Item Value Reference Range Interpretation Comments POC glucose (test code 189 mg/dL 65-99 H Opera tor Name: = 55797-2) Ronald Howell I D: [id number] able: [facility] Notified [facility] Interpretation Abnormal (test code = 18067-4) [facility] 12 [id number] 23:31:23 Test Item Value Reference Range Interpretation [...] initial forces of Septal leads- [facility] HospitalHepatic function [id number] 09:42:00 Test Item Value Reference Range Interpretation Comments Protein (test code = 7.3 g/dL 6.1-8.1 2885-2) Albumin, S (test 2.8 g/dL 3.6-5.1 L code = 1751-7) Globulin, total See_Comment H [Automated (test code = message] The 64274-2) system which generated this result transmitted reference range : 1.9 - 3.7 g/dL (calc). The reference range was not used to interpret this result as normal/abnormal . Albumin/globulin See_Comment L [Automated ratio (test code = message] The 928) system which generated this result transmitted reference [...] RAC) Organization Information: Site ID: RGA Name: [facility] Lab Address: [address] [place] [id number] Director: Shana Galicia Lab Interpretation Abnormal (test code = 16238-8) [facility] HospitalUrine [id number] 01:40:51 Test Item Value Reference Range Interpretation Comments Urine culture Mixed tremayne Specimen isolate (test <=10-3 col/cc InformationSp ecimen code = 97329-1) Source: Urin eSpecimen Site: [facility], [facility]/TOTAL [id number] 11:30:08 Test Item Value Reference Range Interpretation [...] Per formed At: [facility], [address] [place], [place] [id number] Laboratory Dire ctor: Jim rios M.D. CLI A Number [id number] Cap Accreditati on No. Lab Interpretation Abnormal (test code = 32034-1) [facility] [id number] 11:28:20 Test Item Value Reference Range Interpretation Comments ESTRADIOL LEVEL 23.5 PG/ML See_Comment Note: Values in (test code = 2243-4) the ran ge of 17-25 PG/ML may demon strate increas ed imprecision. C linical correlation is recommended. Unless Otherwis e Indicated, All Testing Performed At: [facility], [address] [place] [address] Professor Of Psychiatry: Jim Montes M.D. CLIA Number [id number] Cap Accreditati on No. [Auto mated message] The sy stem which generated this result transmit niranjan reference range : <=60.7. The ref erence range was not u sed to interpret this result as normal/abnor mal. [facility] CenterLlofsslcNXRNBBMJE2822-69-38 11:28:20 Test Item Value Reference Range Interpretation [...] Indic ated, All Testing Perform ed At: [facility], [address] [place], [place] [id number] 4 Laboratory Dire ctor: Jim Montes M.D. CLIA Number [id number] Cap Accreditation N o. [Automated mess age] The system which generated this result transmitted ref erence range: 4.0 - 26.0 NG/M L. The reference range was not u sed to interpret this result as normal/abnormal. [facility] CenterFSH + LH [id number] 11:28:20 Test Item Value Reference Range Interpretation Comments FOLLICLE STIMULATING See_Comment H [Autom ated message] HORMONE (test code = The sys tem which 31648-0) generated this result transmitted ref erence range: 1.5 - 12 .4 IU/L. The refer ence range was not u sed to interpret this result as normal/abnor mal. LUTEINIZING HORMONE See_Comment H Unless (test code = 41381-9) Otherw ise Indicated, All Testing Per formed At: [facility], [address] [place] [address] Laboratory Dire ctor: Jim rios M.D. CLIA Num mag [id number] Cap Accreditation N o. 70830-94 [Auto mated message] The sy stem which generated this result transmit niranjan reference range : 1.2 - 8.6 IU/L. The reference range was not used to int erpret this result as normal/abnormal . Lab Interpretation Abnormal (test code = 90786-7) [facility] CenterLIPID [id number] 10:19:48 Test Item Value Reference Range Interpretation Comments CHOLESTEROL (test code See_Comment [Aut omated message] = 2093-3) The system [facility] h generated this result transmitted ref erence range: <200 MG/ DL. The reference range was not used to int erpret this result as normal/abnormal . TRIGLYCERIDES (test See_Comment [Automa niranjan message] code = 2571-8) The system [facility] generated this result transmitted ref erence range: <150 MG/ DL. The reference range was not used to int erpret this result as normal/abnormal . HDL CHOLESTEROL (test See_Comment L [Auto mated message] code = 2085-9) The system [employer] generated this result transmitted ref erence range: >39 MG/D L. The reference range was not used to int erpret this result as normal/abnormal . LDL CHOLESTEROL See_Comment NOTE: CALCU LATED LDL CALCULATED (test code = [place] [address]-2) AAYUSH-HAUSER METHOD WHICHINCLUDES ADJUSTABLE TRIGLYCERIDE:VL DL CHOLESTEROL RAT IO.THIS FACTOR VARIES B Y MEASURED TRIGLY CERIDE AND NON-HDLCHOL ESTEROL CONCENTRATIONS WITH INCREASED CALCU LATED LDL SEENIN HIGH ER TRIGLYCERIDE OR LOWER NON-HDL SPECIME NS. FOR MOREINFORMATION , SEE CLIENT ANNOUNCE MENT AT [email or web address] [Automated mess age] The system [employer] generated this result transmitted ref erence range: <100 MG/ DL. The reference range was not used to int erpret this result as normal/abnormal . LDL/HDL RATIO, SERUM See_Comment Unless (test code = 77491-1) Otherw ise Indicated, All Testing Per formed At: [facility], [address] [place] [address] Laboratory Dire ctor: Jim rios M.D. CLIA Num mag [id number] Cap Accreditation N o. 55557-02 [Auto mated message] The sy stem which generated this result transmit niranjan reference range : <3.55 RATIO. The refe rence range was not u sed to interpret this result as normal/abnor mal. Lab Interpretation Abnormal (test code = 85595-9) [facility] [id number] 06:55:01 Test Item Value Reference Range Interpretation Comments HEMATOCRIT (test code = 34.8 % 40.0-51.0 L Unless ) Otherwise Indic ated, All Testing Per formed At: [facility], [address] [place] [address] Laboratory Dire ctor: Jim rios M.D. CLIA Num mag [id number] Cap Accreditation N o. 27376-51 Lab Interpretation Abnormal (test code = 66395-3) [facility])2019-08-29 09:44:00 Test Item Value Reference Range Interpretation Comments SARS-COV2/RT-PCR (test code = Positive Not Detected, Negative A A [id number]) SARS-COV-[address] [facility] (test code = 9398936) Results are for the detection of SARS-CoV-2 [...] 564(g) of the Act.Fact Sheet for Healthcare Providers:https://www.quJackpocket.com/sites/default/files/product/d ocuments/Byfl_Iefmy_CT_Nyxcqpjeh_Qgdk_GSWY-IwJ-7.pdfFact Sheet for Healthcare Patients:https://www.Matchpoint.Cody/sites/default/files/product/documents/Fact_Sheet_Patients_Lyra_SARS-CoV -2.pdfPerforming Laboratory:[facility] [place] [address]
--- NOTE | 2021-06-25 14:16 | ER ---
Nurse's Notes [facility] Name: Tacho Lundy Age: 76 yrs Sex: Male : 1945 Arrival Date: 06/25/2021 Time: 12:01 Bed 4 Private MD: Diagnosis: Drainage post paracentesis Presentation: 06/25 12:18 Chief complaint: Recently discharged from here and had a paracentesis and it is leaking ww and has swelling to his right leg and right back. Coronavirus screen: Vaccine status: Patient reports receiving the 2nd dose of the covid vaccine. Client denies travel out of the [place] in the last 14 days. Ebola Screen: Patient denies travel to an Ebola-affected area in the 21 days before illness onset. Initial Sepsis Screen: Does the patient meet any 2 criteria? No. Patient's initial sepsis screen is negative. Does the patient have a suspected source of infection? No. Patient's initial sepsis screen is negative. Risk Assessment: Do you want to hurt yourself or someone else? Patient reports no desire to harm self or others. Onset of symptoms is unknown. 12:18 Method Of Arrival: Wheelchair ww 12:18 Acuity: CORRY 3 ww Triage Assessment: 12:20 General: Appears in no apparent distress. Behavior is cooperative. Pain: Complains of ww pain in abdomen. Neuro: Level of Consciousness is awake, alert, obeys commands, Oriented to person, place, situation. Respiratory: Airway is patent Respiratory effort is even, unlabored, Respiratory pattern is regular, symmetrical. GI: Abdomen is distended, noted to have ascites. Historical: - Allergies: 12:20 Vancomycin; ww - PMHx: 12:20 back surgery; Hypertension; Hernia; cirrhosis of liver; Chronic pain; Diabetes - IDDM; ww - Immunization history:: Adult Immunizations up to date. - Social history:: Smoking status: Patient/guardian denies using tobacco. Screenin:21 Abuse screen: Denies threats or abuse. Denies injuries from another. Nutritional ww screening: No deficits noted. Tuberculosis screening: No symptoms or risk factors identified. 12:30 Fall Risk No fall in past 12 months (0 pts). No secondary diagnosis (0 pts). No IV (0 vg1 pts). Ambulatory Aid- Crutches/Cane/Walker (15 pts). Gait- Impaired (20 pts.). Mental Status- Oriented to own ability (0 pts). Total Horton Fall Scale indicates High Risk Score (45 or more points). Fall prevention measures have been instituted. Side Rails Up X 2 Placed Close to Nursing Station Family Present and informed to notify staff if the need to leave the bedside. Assessment: 12:30 General: Appears in no apparent distress. comfortable, Behavior is calm, cooperative. vg1 Pain: Denies pain. Neuro: Level of Consciousness is awake, alert, obeys commands, Oriented to person, place, time, situation. Cardiovascular: Patient's skin is warm and dry. Respiratory: Airway is patent Respiratory effort is even, unlabored. GI: Abdomen is round non-distended, Abd is non tender X 4 quads. : No signs and/or symptoms were reported regarding the genitourinary system. EENT: No signs and/or symptoms were reported regarding the EENT system. Derm: Skin is intact, Skin is pink, warm \T\ dry. Musculoskeletal: Circulation, motion, and sensation intact. Vital Signs: 12:18 BP 96 / 47; Pulse 68; Resp 16; Temp 98.1; Pulse Ox 98% on R/A; Weight 65.77 kg; Height ww 5 ft. 6 in. (167.64 cm); Pain 4/10; 13:00 BP 126 / 53; Pulse 63; Resp 16; Pulse Ox 100% on R/A; vg1 14:00 BP 133 / 60; Pulse 70; Resp 16; Pulse Ox 99% ; vg1 12:18 Body Mass Index 23.40 (65.77 kg, 167.64 cm) ED Course: 12:01 Patient arrived in ED. ds1 12:20 Triage completed. ww 12:20 Arm band placed on left wrist. ww 12:24 Nan Isaac, RN is Primary Nurse. vg1 12:30 Patient has correct armband on for positive identification. Bed in low position. Call vg1 light in reach. 12:38 Eliel Agudelo NP is PHCP. pm1 12:38 Janet Beasley MD is Attending Physician. pm1 14:10 German Martin MD is Referral Physician. pm1 14:31 No provider procedures requiring assistance completed. Patient did not have IV access vg1 during this emergency room visit. Administered Medications: 14:20 CANCELLED (Patient Refused): Lidocaine (1 %) 5 ml 5 ml Infiltration once; to bedside ap3 Outcome: 14:16 Discharge ordered by MD. pm1 14:32 Discharged to home via wheelchair, with family. vg1 14:32 Condition: good 14:32 Discharge instructions given to patient, family, Instructed on discharge instructions, follow up and referral plans. Demonstrated understanding of instructions, follow-up care. 14:32 Patient left the ED. vg1 Signatures: Caroline Paige ds1 Eliel Agudelo NP STAFF ANESTHETIST pm1 Nan Isaac, RN RN vg1 Dedra Isaacs RN RN ww Yi Graham RN ap3
--- NOTE | 2021-06-25 14:16 | EDPHYS ---
Physician Documentation [facility] Name: Tacho Lundy Age: 76 yrs Sex: Male : 1945 Arrival Date: 06/25/2021 Time: 12:01 Bed 4 Private MD: ED Physician Janet Beasley HPI: 06/25 12:51 This 76 yrs old Unknown Male presents to ER via Wheelchair with complaints of pm1 Parasentesis site leakage. 12:51 Associated signs and symptoms: The patient has no apparent associated signs or pm1 symptoms, Pertinent negatives: abdominal pain, fever, shortness of breath. Modifying factors: The patient symptoms are alleviated by nothing, the patient symptoms are aggravated by nothing. The patient has been recently seen by a physician: Patient with paracentesis on the of this month. Patient was admitted on the for hepatic encephalopathy, liver cirrhosis. During hospitalization had paracentesis. Since paracenteses he has had some leakage from the site. Historical: - Allergies: 12:20 Vancomycin; ww - PMHx: 12:20 back surgery; Hypertension; Hernia; cirrhosis of liver; Chronic pain; Diabetes - IDDM; ww - Immunization history:: Adult Immunizations up to date. - Social history:: Smoking status: Patient/guardian denies using tobacco. ROS: 12:51 Constitutional: Negative for fever, chills, and weight loss, Cardiovascular: Negative pm1 for chest pain, palpitations, and edema, Respiratory: Negative for shortness of breath, cough, wheezing, and pleuritic chest pain, Abdomen/GI: Negative for abdominal pain, nausea, vomiting, diarrhea, and constipation, MS/Extremity: Negative for injury and deformity, Skin: Negative for injury, rash, and discoloration, Neuro: Negative for headache, weakness, numbness, tingling, and seizure. 12:51 All other systems are negative. Exam: 12:51 Constitutional: This is a well developed, well nourished patient who is awake, alert, pm1 and in no acute distress. Head/Face: Normocephalic, atraumatic. 12:51 Skin: Warm, dry with normal turgor. Normal color with no rashes, no lesions, and no evidence of cellulitis. MS/ Extremity: Pulses equal, no cyanosis. Neurovascular intact. Full, normal range of motion. 12:51 Cardiovascular: Exam negative for acute changes, Rate: normal, Rhythm: regular, Pulses: no pulse deficits are appreciated. 12:51 Respiratory: Exam negative for acute changes, respiratory distress, shortness of breath. 12:51 Neuro: Exam negative for acute changes, Orientation: is normal, Motor: is normal, moves all fours. Vital Signs: 12:18 BP 96 / 47; Pulse 68; Resp 16; Temp 98.1; Pulse Ox 98% on R/A; Weight 65.77 kg; Height ww 5 ft. 6 in. (167.64 cm); Pain 4/10; 13:00 BP 126 / 53; Pulse 63; Resp 16; Pulse Ox 100% on R/A; vg1 14:00 BP 133 / 60; Pulse 70; Resp 16; Pulse Ox 99% ; vg1 12:18 Body Mass Index 23.40 (65.77 kg, 167.64 cm) ww MDM: 12:48 Patient medically screened. pm1 13:56 ED course: Dr. Edward already discussed with the patient treatment options: pm1 [id number] suture at the paracentesis puncture point or a dressing to the area. Patient currently does not want suturing and wants to go home. 14:09 Data reviewed: vital signs. Data interpreted: Pulse oximetry: on room air is 98 %. pm1 Interpretation: normal. Counseling: I had a detailed discussion with the patient and/or guardian regarding: the historical points, exam findings, and any diagnostic results supporting the discharge/admit diagnosis, the need for outpatient follow up, Dr. Martin, to return to the emergency department if symptoms worsen or persist or if there are any questions or concerns that arise at home. 14:16 ED course: Patient did not want to get a figure 8 suture to the paracentesis puncture pm1 site to stop the leakage. He just wants to go home right now. Informed nursing to apply dressing to the area. Administered Medications: 14:20 CANCELLED (Patient Refused): Lidocaine (1 %) 5 ml 5 ml Infiltration once; to bedside ap3 Disposition Summary: 06/25/21 14:16 Discharge Ordered Location: Home pm1 Problem: new pm1 Symptoms: have improved pm1 Condition: Stable pm1 Diagnosis - Drainage post paracentesis pm1 Followup: pm1 - With: Emergency Department - When: As needed - Reason: Worsening of condition Followup: pm1 - With: German Martin MD - When: 2 - 3 days - Reason: Recheck today's complaints, Continuance of care, Re-evaluation by your physician Discharge Instructions: - Discharge Summary Sheet pm1 - Paracentesis, Care After pm1 Forms: - Medication Reconciliation Form pm1 - Thank You Letter pm1 - Antibiotic Education pm1 - Prescription Opioid Use pm1 Signatures: Eliel Agudelo NP SOLUTION DESIGN AND ANALYSIS MANAGER pm1 Dedra Isaacs RN RN ww Yi Graham RN ap3 Corrections: (The following items were deleted from the chart) 14:20 14:16 Lidocaine (1 %) 5 ml 5 ml Infiltration once; to bedside ordered. pm1 ap3
[2021-06-25 14:36] VITALS: TEMP 98.1
[2021-06-25 14:39] VITALS: BP 133/60; O2SAT 99
== END 2021-06-25 14:32 | disposition home or self-care (01) ==
LOC: ER 11:56
DX: T88.8XXA Other specified complications of surgical and medical care, not elsewhere classified, initial encounter (principal); E11.9 Type 2 diabetes mellitus without complications; I10 Essential (primary) hypertension; K74.60 Unspecified cirrhosis of liver; Z88.3 Allergy status to other anti-infective agents
CPT/HCPCS: 99281

== ENCOUNTER 2021-06-28 12:51 | Inpatient (IN) | payer OTHER, MEDICARE ==
--- OUTSIDE RECORDS SUMMARY | 2021-06-28 12:56 | XMS REPORT | Continuity of Care Document ---
:1945 Author Organization [facility] t Address 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 [facility] hypogonadi hypogonadi 03-17 Co llege sm sm 00:00: of 00 Medicin e Special Special Disease Active 2016-03 [facility] screening screening 03-17 Dang ege for for [...] Medicin e BPH BPH Disease Active 2012-03 [facility] (benign (benign 03-04 [place] prostatic prostatic 00:00: of hypertroph hypertroph 00 Me dicin y) with y) with e urinary urinary obstructio obstructio n n Erectile Erectile Disease Active 2012-03 [facility] r dysfunctio dysfunctio 03-04 Co llege n n 00:00: of 00 Medicin e History of History of Disease Active 2012-03 U nivers nonmelanom nonmelanom 0-21 it y of a skin a skin 00:00: [place] [facility] Allergies, Adverse Reactions, [...] DA Active U 2017-03 [facility] Allergie 0-15 [place] [facility] 00[facility] No Known DA Active U [facility] Allergie 8-29 [place] [facility] 00:[facility] 00 dic Hospita l NO KNOWN Drug Active Univers ALLERGIE Class ity of S [facility] Family History Family Member Diagnosis Comments Start Date Stop Date Source Natural father Heart disease [facility] Natural mother Heart disease [facility] Social History Social Habit Start Date Stop Date Quantity Comments Source History of tobacco Cigarette Smoker Critical access hospital Exposure to Not sure University of SARS-CoV-2 (event) [facility] History SDOH Congregation Alcohol Std Drinks Hospit al History SDOH [facility] Alcohol Binge Hospital Alcohol intake 2021-03-27 2021-03-27 .43 /d Congregation 00:00:00 00:00:00 Hospital Cigarettes smoked 2019-09-10 2019-09-10 [facility] current (pack per 00:00:00 00:00:00 Hospita l day) - Reported Cigarette 2019-09-10 2019-09-10 [facility] pack-years 00:00:00 00:00:00 Hospital Tobacco use and 2019-09-10 2019-09-10 Smokeless [facility]regation exposure 00:00:00 00:00:00 tobacco non-user Hospital History SDOH 2019-09-10 2019-09-10 3 [facility] Alcohol Frequency 00:00:00 00:00:00 Hospita l Alcohol Comment 2018-01-31 2018-01-31 3 week Congregation 00:00:00 00:00:00 Hospital Sex Assigned At [address] [facility] - 00:00[facility]00 [facility]00 [facility] Smoking Status Start Date Stop Date Source Ex-smoker 2019-09-10 00:00:00 2019-09-10 00:00:00 [facility] Never smoker [facility] Medications Ordered Filled Start [...] daily with l breakfast. HYDROcodone 0 Yes [id number] 1{tbl} Q4H Take 1 M ethodi -acetaminop 1-[address] hen (NORCO) 13:02: mouth Hospi ta 7.5-325 mg 10 every 4 l per tablet (four) hours as needed for mild pain or moderate pain .acute pain. (per Prescripti on Drug Monitoring Program, last filled 01/09/2021 , quantity: 56, day supply: 28) insulin 2021-0 Yes [id number] Inject Me thodi ASPART 1-[id number] (NovoLOG) 13:02: 3D skin [...] tablet 10 daily. l bisacodyL 2022-0 2022- No 5mg Q.5D Take 1 Metho di (Dulcolax, [...] daily for 30 days. metoclopram No 5mg Q.[id number] Take 1 Methodi gerald 9-10 10-11 [id number] tablet (5 st (Reglan) 5 00:00: 04:59 [...] for 30 days. polyethylen 2020- No 17g Q.[id number] Take 17 g Methodi e glycol 6-30 07-31 [id number] by mouth 3 st (GLYCOLAX) 00:00: 04:59 3D (three) Hos cat 17 00 :00 times a l gram/dose day for 30 powder days. riFAXimin 2020- No [id number] 550mg Q.5D Take 1 Methodi (Xifaxan) 08-[address] 550 mg 00:00: 04:59 (550 mg Hospita tablet 00 :00 total) by l mouth 2 (two) times a day for 30 days. amLODIPine 2020- No [id number] 10mg QD Take 1 Methodi (NORVASC) 07-27- [...] for 30 days. methocarbam 2020- No 500mg Q.[id number] Take 500 Methodi ol 5-20 05-[id number] (ROBAXIN) 20:05: 00:00 3D mouth 3 Hosp mahesh 500 MG 04 :00 (three) l tablet times a day. lisinopriL No 40mg QD Take 40 mg Methodi (PRINIVIL) 5-20 05-[address] 40 mg 20:04: 00:00 daily. Hospita tablet 58 :00 l insulin 2020- No 8U [id number] Inject 8 Methodi lispro 5-20 05-[id number] (HumaLOG) 20:03: 00:00 3D under the Ho spita 100 unit/mL 44 :00 skin 3 l injection (three) times a day before meals. GUAIFENESIN 2020- No 400mg Q.[id number] Take 400 Methodi ORAL 5-20 05-[id number] 20:03: 00:00 3D mouth 3 Hospita 07 :00 (three) l times a day. ezetimibe-s 2020- No 1{tbl} QD Take 1 M ethodi imvastatin 5-20 05-[address] (VYTORIN) 20:03: 00:00 mouth Hospit a 10-40 mg 01 :00 nightly. l per tablet sildenafil Yes [id number] Take by [facility] citrate 4-14 [facility] (VIAGRA) 00:00: daily for of 100 MG 00 HTN and Medicin tablet ED. e testosteron 2020- No [id number] 200 mg/cc, [facility] e cypionate -14 04-14 1 vial = Col lege (DEPOTESTOT 00:00: 00:00 10 of ERONE 00 :00 ccInject Medicin CYPIONATE) _0.75_ cc e 200 MG/ML IM Q _7_ injection days. silver 2018-03 Yes [id number] Apply to Un jenny sulfADIAZIN 0-22 area(s) 2 ity of E 00:00: (two) [place] (SILVADENE) 00 times Medical 1 % cream daily. Ninfa silver 2018-03 Yes [id number] Apply to Un jenny sulfADIAZIN 0-22 area(s) [...] injection days. sildenafil 2020- No Take by [facility] citrate 08-27 [facility] (VIAGRA) 00:00: 00:00 daily for of 100 MG 00 :00 HTN and Medicin tablet ED. e anastrozole 2016-03 Yes Take one [facility] (ARIMIDEX) 1-27 per week Colle ge 1 MG tablet 00:00: of 00 Medicin e FENOFIBRATE Yes Take by Un jenny NANOCRYSTAL 5-25 mouth. ity of LIZED 08:49: [place] (TRICOR 56 Medical ORAL) [place] EZETIMIBE/S Yes Take by Un jenny IMVASTATIN 5-25 mouth. ity of (VYTORIN 08:49: [place] 10-20 ORAL) [address] [place] [address] Branch FENOFIBRATE Yes Take by Un jenny NANOCRYSTAL 5-25 mouth. ity of LIZED 08:49: [place] (TRICOR 56 Medical ORAL) [place] EZETIMIBE/S Yes Take by Un jenny IMVASTATIN 5-25 mouth. ity of (VYTORIN 08:49: [place] 10-20 ORAL) [address] [place] [address] Branch enalapril Yes 5mg Take 5 mg Uni vers (VASOTEC) 5 5-25 by mouth ity of mg tablet 08:49: daily. [address] enalapril Yes 5mg Take 5 mg Uni vers (VASOTEC) 5 5-25 by mouth ity of mg tablet 08:49: daily. [address] Branch fluorouraci Yes Apply to Univers [...] Source Systolic blood 2020-06-16 00:05:00 133 mm[Hg] [facility] Medicine Diastolic blood 2020-06-16 00:05:00 78 mm[Hg] [facility] Medicine Heart rate 2020-06-16 00:05:00 97 /min [facility] Systolic blood 2021-03-30 17:45:00 158 mm[Hg] [facility] pressure Diastolic blood 2021-03-30 17:45:00 68 mm[Hg] [facility] pressure Heart rate 2021-03-30 17:45:00 79 /min [facility] Body temperature 2021-03-30 17:45:00 36.44 Bianca [facility] Respiratory rate 2021-03-30 17:45:00 20 /min [facility] Oxygen saturation in 2021-03-30 17:45:00 99 /min [facility] Arterial blood by Pulse oximetry Body height 2021-03-27 18:59:00 165.1 cm [facility] Body weight 2021-03-27 18:59:00 62.596 kg [facility] BMI 2021-03-27 18:59:00 22.96 kg/m2 [facility] Procedures Procedure Date / Time Performing Clinician Source Performed PROTHROMBIN TIME WITH INR 2021-03-30 18:11:00 [facility] HEMOGLOBIN A1C 2021-03-30 18:11:00 [facility] FIBRINOGEN 2021-03-30 18:11:00 Krissy, [facility] spital COMPREHENSIVE METABOLIC 2021-03-30 18:11:00 Krissy, [facility] PANEL CBC WITH PLATELET AND 2021-03-30 [facility] ABDOMINAL PARACENTESIS 2021-03-30 18:00:00 Krissy, [facility] IMAGING ANAEROBIC CULTURE 2021-03-30 16:59:00 [facility] [place] [facility] AEROBIC CULTURE 2021-03-30 16:59:00 Karl Oakes spital GRAM STAIN 2021-03-30 16:59:00 Karl Oakes spital ALBUMIN, [facility] FLUID 2021-03-30 16:59[facility]00 [facility]YL[facility]EVEL, [facility] 2021-03-30 16:59:00 Krissy [facility] LDH, [facility] 2021-03-30 16:59:00 Karl Oakes spital PROTEIN, [facility] 2021-03-30 16:59:00 Krissy [facility] CELL COUNT AND 2021-03-30 16:59:00 Karl Oakes spital DIFFERENTIAL, BODY FLUID TRIGLYCERIDES, [facility] 2021-03-30 16:59:00 Krissy [facility] CYTOLOGY 2021-03-30 16:59:00 Karl Oakes spital (NON-GYNECOLOGICAL) REQUEST AEROBIC CULTURE 2021-03-23 18:00:00 Karl Oakes spital ANAEROBIC CULTURE 2021-03-23 18:00:00 Krissy [facility] GRAM STAIN 2021-03-23 18:00:00 Karl Oakes spital CELL COUNT AND 2021-03-23 18:00:00 Karl Oakes spital DIFFERENTIAL, BODY FLUID AMYLASE LEVEL, [facility] 2021-03-23 18:00:00 Krissy [facility] ALBUMIN, [facility] 2021-03-23 18:00:00 Krissy [facility] PROTEIN, [facility] 2021-03-23 18:00:00 Krissy [facility] LDH, [facility] 2021-03-23 18:00:00 Karl Oakes spital TRIGLYCERIDES, [facility] 2021-03-23 18:00:00 [facility] 2021-03-23 18:00:00 Karl Oakes spital (NON-GYNECOLOGICAL) REQUEST US ABDOMINAL PARACENTESIS 2021-03-23 17:47:22 [facility] IM[facility] COMPREHENSIVE METABOLIC 2021-03-16 20:30:00 Krissy [facility] PANEL FIBRINOGEN 2021-03-16 20:30:00 Karl Oakes PROTHROMBIN TIME WITH INR 2021-03-16 20:30:00 [facility] CBC WITH PLATELET AND 2021-03-16 20:30:00 Krissy [facility] DIFFERENTIAL US ABDOMINAL PARACENTESIS 2021-03-16 17:40:00 Krissy [facility] IMAGING AEROBIC CULTURE 2021-03-16 17:15:00 Karl Oakes spital GRAM STAIN 2021-03-16 17:15:00 Karl Oakes spital ANAEROBIC CULTURE 2021-03-16 17:15:00 [facility] AND 2021-03-16 17:15:00 Krissy Karleileen Boyd spital DIFFERENTIAL, BODY FLUID ALBUMIN, [facility] 2021-03-16 17:15:00 [facility] AMYL[facility]EV[facility], [facility] 2021-03-16 17:15:00 [facility] 2021-03-16 17:15:00 Karl Oakes spital PROTEIN, [facility] 2021-03-16 17:15:00 [facility] TRIGLY[facility]ERIDES, MISC FLUID 2021-03-16 17:15:00 [facility] 2021-03-16 17:15:00 Karl Oakes spital (NON-GYNECOLOGICAL) REQUEST US ABDOMINAL PARACENTESIS 2021-03-09 20:00:00 [facility] AEROBIC CULTURE 2021-03-09 19:50:00 Karl Oakes spital ANAEROBIC CULTURE 2021-03-09 19:50:00 Krissy [facility] FUNGUS CULTURE 2021-03-09 19:50:00 Karl Oakes spital AFB CULTURE 2021-03-09 19:50:00 Karl Oakes spital FUNGUS SMEAR 2021-03-09 19:50:00 Kral Oakes spital AFB STAIN 2021-03-09 19:50:00 Karl Oakes spital ALBUMIN, [facility] 2021-03-09 19:50:00 [facility] AMYLASE LEVEL, [facility] 2021-03-09 19:50:00 Krissy, [facility] LDH, [facility] 2021-03-09 19:50:00 Karl Oakes spital PROTEIN, [facility] 2021-03-09 19:50:00 [facility] TRIGLYCERIDES, [facility] 2021-03-09 19:50:00 [facility] CELL COUNT AND 2021-03-09 19:50:00 Karl Oakes spital DIFFERENTIAL, BODY FLUID CYTOLOGY 2021-03-09 19:50:00 Karl Oakes spital (NON-GYNECOLOGICAL) REQUEST US ABDOMINAL PARACENTESIS 2021-02-23 23:13:56 Krissy [facility] IMAGING ANAEROBIC CULTURE 2021-02-23 22:40:00 Krissy [facility] AEROBIC CULTURE 2021-02-23 22:40:00 Karl Oakes spital AFB CULTURE 2021-02-23 22:40:00 Karl Oakes spital FUNGUS CULTURE 2021-02-23 22:40:00 Karl Oakes spital FUNGUS SMEAR 2021-02-23 22:40:00 Karl Oakes spital AFB STAIN 2021-02-23 22:40:00 Karl Oakes spital ALBUMIN, MISC FLUID 2021-02-23 22:40:00 Krissy [facility] AMYLASE LEVEL, MISC FLUID 2021-02-23 22:40:00 Krissy [facility] LDH, MISC FLUID 2021-02-23 22:40:00 Karl Oakes spital [facility]OTEIN, [facility] 2021-02-23 22:40:00 Krissy [facility] CELL COUNT AND 2021-02-23 22:40:00 Karl Oakes DIFFERENTIAL, BODY FLUID TRIGLYCERIDES, [facility] 2021-02-23 22:40:00 Krissy [facility] CYTOLOGY 2021-02-23 22:40:00 Karl Oakes (NON-GYNECOLOGICAL) REQUEST POTASSIUM LEVEL 2021-02-23 21:40:00 [facility] POC [facility]UCOSE 2021-02-23 21:40:00 Karl Oakes spital BASIC METABOLIC PANEL 2021-02-23 19:20:00 Chiu [facility] Mora ESTIMATED GFR 2021-02-23 19:20:00 [facility]a PROTHROMBIN TIME WITH INR 2021-02-17 19:11:00 [facility] FIBRINOGEN 2021-02-17 19:11:00 Karl Oakes spital COMPREHENSIVE METABOLIC 2021-02-17 19:11:00 Krissy, [facility] PANEL CBC WITH PLATELET AND 2021-02-17 19:11:00 [facility] DIFFERENTIAL US ABDOMINAL PARACENTESIS 2021-02-15 21:00:00 Breezy [facility] IMAGING ANAEROBIC CULTURE 2021-02-15 20:35[facility] 2021-02-15 20:35:00 Rupinder Tijerina spital GRAM STAIN 2021-02-15 20:35:00 Rupinder Tijerina carrie ALBUMIN, MISC FLUID 2021-02-15 20:35:00 [facility] TRIGLYCERIDES, MISC FLUID 2021-02-15 20:35:00 [facility] PROTEIN, MISC FLUID 2021-02-15 20:35:00 [facility] AMYLASE LEVEL, [facility] 2021-02-15 20:35:00 [facility] CELL COUNT AND 2021-02-15 20:35:00 Rupinder Tijerina DIFFERENTIAL, BODY FLUID CYTOLOGY 2021-02-15 20:35:00 Rupinder Tijerina (NON-GYNECOLOGICAL) REQUEST POC GLUCOSE 2021-02-01 20:04:00 Ty Basurtotal US ABDOMINAL PARACENTESIS 2021-02-01 17:30:00 [facility] IMAGING AEROBIC CULTURE 2021-02-01 17:00:00 [facility] ANAEROBIC CULTURE 2021-02-01 17:00:00 [facility] GRAM STAIN 2021-02-01 17:00:00 Herberth Awad carrie Marcello REma CELL COUNT AND 2021-02-01 17:00:00 [facility] DIFFERENTIAL, BODY FLUID PROTEIN, [facility] 2021-02-01 17:00:00 [facility] LDH, [facility] 2021-02-01 17:00:00 [facility] ALBUMIN, [facility] 2021-02-01 17:00:00 [facility] PH, MISC FLUID 2021-02-01 17:00:00 [facility] GLUCOSE LEVEL, MISC FLUID 2021-02-01 17:00:00 [facility] AMYLASE LEVEL, [facility] 2021-02-01 17:00[facility]00 [facility] R. POC GLUCOSE 2021-02-01 15:25:00 Ty Basurto spital COMPREHENSIVE METABOLIC 2021-02-01 12:30:00 Ronda Ty [facility] PANEL ESTIMATED GFR 2021-02-01 12:30:00 Ty Basurto HC COMPLETE BLD COUNT 2021-02-01 10:31:00 [facility] W/AUTO DIFF PHOSPHORUS LEVEL 2021-02-01 10:31:00 [facility] MAGNESIUM LEVEL 2021-02-01 10:31:00 [facility] COMPREHENSIVE METABOLIC 2021-02-01 10:31:00 [facility] PANEL ESTIMATED GFR 2021-02-01 10:31:00 Ty Basurto spital POC GLUCOSE 2021-02-01 04:07:00 Ty Basurto spital ECG 12-LEAD 2021-02-01 03:51:51 [facility] LIPID PANEL 2021-02-01 03:48:00 [facility] HEMOGLOBIN A1C 2021-02-01 03:48:00 [facility] B NATRIURETIC PEPTIDE 2021-02-01 03:48:00 [facility] COVID-19 QUALITATIVE 2021-01-31 23:23:00 [facility] RT-PCR Marcello León POC GLUCOSE 2021-01-31 21:14:00 [facility] spital Marcello R. XR CHEST 1 VW PORTABLE 2021-01-31 20:41:00 Reba Whelan [facility] PROTHROMBIN TIME WITH INR 2021-01-31 20:14:00 Reba Whelan [facility] PARTIAL THROMBOPLASTIN 2021-01-31 20:14:00 Sn Tipehlove Conklin [facility] TIME (PTT) DC CRITICAL CARE, E/M 2021-01-31 20:06:18 [facility]ES Marcello León HC COMPLETE BLD COUNT 2021-01-31 18:50:00 Shana Mendoza [facility] W/AUTO DIFF COMPREHENSIVE METABOLIC 2021-01-31 18:50:[address] [facility] [address] [facility] PANEL ESTIMATED GFR 2021-01-31 18:50:00 [facility] PARTIAL THROMBOPLASTIN 2021-01-25 18:32:00 [facility] TIME (PTT) PROTHROMBIN TIME WITH INR 2021-01-25 18:32:00 [facility] FIBRINOGEN 2021-01-25 18:32:00 Breezy [facility] Herberth Boyd spital COMPREHENSIVE METABOLIC 2021-01-25 18:32:00 [facility] PANEL HC COMPLETE BLD COUNT 2021-01-25 18:32:00 [facility] W/AUTO DIFF ESTIMATED GFR 2021-01-25 18:32:00 Breezy Rupindernick Boyd spital AEROBIC CULTURE 2021-01-05 19:10:00 Krissy Karleileen Kevin spital ANAEROBIC CULTURE 2021-01-05 19:10:00 Krissy [facility] US ABDOMINAL PARACENTESIS 2021-01-05 18:31:30 Krissy [facility] IMAGING GRAM STAIN 2021-01-05 18:10:00 Krissy Karleileen Kevin spital AMYLASE LEVEL, [facility] 2021-01-05 18:10:00 Krissy [facility] ALBUMIN, [facility] 2021-01-05 18:10:00 Krissy [facility] PROTEIN, [facility] 2021-01-05 18:10:00 Krissy [facility] LDH, [facility] 2021-01-05 18:10:00 Krissy [facility] spital TRIGLYCERIDES, [facility] 2021-01-05 18:10:00 [facility] CELL COUNT AND 2021-01-05 18:10:00 Karl Oakes spital DIFFERENTIAL, BODY FLUID CYTOLOGY 2021-01-05 18:10:00 Karl Oakes spital (NON-GYNECOLOGICAL) REQUEST US ABDOMINAL PARACENTESIS 2020-12-22 19:25:20 [facility] IMAGING AMYLASE LEVEL, [facility] 2020-12-22 18:50:00 [facility] ALBUMIN, MISC FLUID 2020-12-22 18:50:00 [facility], MIS FLUID 2020-12-22 18:50:00 [facility] L[facility], MISC FLUID 2020-12-22 18:50:00 Karl Oakes spital TRIGLYCERIDES, [facility] 2020-12-22 18:50:00 [facility] CELL COUNT AND 2020-12-22 18:50:00 Karl Oakes spital DIFFERENTIAL, BODY FLUID CYTOLOGY 2020-12-22 18:50:00 Karl Oakes spital (NON-GYNECOLOGICAL) REQUEST AEROBIC CULTURE 2020-12-22 18:20:00 Karl Oakes spital ANAEROBIC CULTURE 2020-12-22 18:20:00 [facility] 2020-12-22 18:20:00 Karl Oakes spital US ABDOMINAL PARACENTESIS 2020-12-09 21:00:00 Krissy [facility] IMAGING ANAEROBIC CULTURE 2020-12-09 19:42:00 [facility] AER[facility] 2020-12-09 19:42:00 Karl Oakes spital GRAM STAIN 2020-12-09 19:42:00 Karl Oakes spital CELL COUNT AND 2020-12-09 19:42:00 Karl Oakes spital DIFFERENTIAL, BODY FLUID [facility] LEVEL, [facility] 2020-12-09 19:42:00 Krissy [facility] LDH, [facility] 2020-12-09 19:42:00 Karl Oakes spital TRIGLYCERIDES, [facility] 2020-12-09 19:42:00 [facility] PROTEIN, MIS FLUID 2020-12-09 19:42:00 Krissy [facility] ALBUMIN, [facility] 2020-12-09 19:42:00 Krissy [facility] CYTOLOGY 2020-12-09 19:42:00 Karl Oakes spital (NON-GYNECOLOGICAL) REQUEST HC COMPLETE BLD COUNT 2020-12-09 16:34:00 Krissy [facility] W/AUTO DIFF COMPREHENSIVE METABOLIC 2020-12-09 16:34:00 Krissy [facility] PANEL FIBRINOGEN 2020-12-09 16:34:00 Karl Oakes spital PROTHROMBIN TIME WITH INR 2020-12-09 16:34:00 Krissy [facility] ESTIMATED GFR 2020-12-09 16:34:00 Karl Oakes spital ALBUMIN, [facility] 2020-11-16 22:17:00 Krissy [facility] AMYLASE LEVEL, [facility] 2020-11-16 22:17:00 Krissy [facility] LDH, [facility] 2020-11-16 22:17:00 Karl Oakes spital PROTEIN, [facility] 2020-11-16 22:17:00 [facility] TRIGLYCERIDES, [facility] 2020-11-16 22:17:00 [facility] CELL COUNT AND 2020-11-16 22:17:00 Karl Oakes spital DIFFERENTIAL, BODY FLUID US ABDOMINAL PARACENTESIS 2020-11-16 20:19:14 [facility]TOLOGY 2020-11-16 19:50:00 Karl Oakes spital (NON-GYNECOLOGICAL) REQUEST AEROBIC CULTURE 2020-11-16 17:39:00 Karl Oakes spital GRAM STAIN 2020-11-16 17:39:[address] ABDOMEN W WO CONTRAST 2020-11-14 18:33:22 Krissy Karl [facility] FIBRINOGEN 2020-11-11 18:45:00 Karl Oakes spital PROTHROMBIN TIME WITH INR 2020-11-11 18:45:00 [facility] COMPREHENSIVE METABOLIC 2020-11-11 18:45:[facility] CBC WITH PLATELET AND 2020-11-11 18:45:00 [facility] BASIC METABOLIC PANEL 2020-11-03 18:14:00 [facility] CBC WITH PLATELET AND 2020-11-03 18:14:00 [facility] DIFFERENTIAL HEPATIC FUNCTION PANEL 2020-11-03 18:14:00 [facility]OT[facility] TIME WITH INR 2020-11-03 18:14:00 [facility] US ABDOMINAL PARACENTESIS 2020-09-27 18:00:00 Krissy [facility] IMAGING AEROBIC CULTURE 2020-09-27 17:30:00 Karl Oakes spital GRAM STAIN 2020-09-27 17:30:00 Karl Oakes spital ANAEROBIC CULTURE 2020-09-27 17:30:00 [facility] AL[facility]UMIN, [facility] 2020-09-27 17:30:00 [facility] AMYLASE LEVEL, [facility] [facility] [place] [facility] 2020-09-27 17:30:00 [facility], [facility] [place] [facility] 2020-09-27 17:30[facility]00 [facility] [place] [facility] 2020-09-27 17:30:00 Karl Oakes spital TRIGLYCERIDES, MISC FLUID 2020-09-27 17:30:00 Karl Oakes [facility] CELL COUNT AND 2020-09-27 17:30:00 Karl Oakes DIFFERENTIAL, BODY FLUID CYTOLOGY 2020-09-27 17:30:00 Karl Oakes spidustin (NON-GYNECOLOGICAL) REQUEST POC GLUCOSE 2020-07-26 13:11:00 Jose Ford HC COMPLETE BLD COUNT 2020-07-26 10:11:00 [facility] W/AUTO DIFF COMPREHENSIVE METABOLIC 2020-07-26 10:11:00 [facility] PANEL MAGNESIUM LEVEL 2020-07-26 10:11:00 [facility] PHOSPHORUS LEVEL 2020-07-26 10:11:00 [facility] PROTHROMBIN TIME WITH INR 2020-07-26 10:11:00 [facility] PARTIAL THROMBOPLASTIN 2020-07-26 10:11:00 [facility] TIME (PTT) ESTIMATED GFR 2020-07-26 10:11:00 [facility] P[facility]SE 2020-07-26 10:08:00 Jose Ford POC GLUCOSE 2020-07-26 07:05:00 Jose Ford POC GLUCOSE 2020-07-26 02:53:00 LilianaJose childers POC GLUCOSE 2020-07-25 22:02:00 LilianaJose childers POC GLUCOSE 2020-07-25 16:31:00 LilianaJose childers osleticiatal Farrukh POC GLUCOSE 2020-07-25 12:55:00 [facility] COMPLETE BLD COUNT 2020-07-25 09:46:00 [facility] W/AUTO DIFF COMPREHENSIVE METABOLIC 2020-07-25 09:46:00 [facility] PANEL MAGNESIUM LEVEL 2020-07-25 09:46:00 [facility] PHOSPHORUS LEVEL 2020-07-25 09:46:00 [facility] PROTHROMBIN TIME WITH INR 2020-07-25 09:46:00 [facility] PARTIAL THROMBOPLASTIN 2020-07-25 09:46:00 [facility] TIME (PTT) ESTIMATED GFR 2020-07-25 09:46:00 [facility] 2020-07-25 09:40[facility]00 [facility] 2020-07-25 05:20:00 [facility]SE 2020-07-25 01:37:00 [facility] POC GLUCOSE 2020-07-24 21:13:00 [facility] POC GLUCOSE 2020-07-24 16:55:00 [facility]SE 2020-07-24 13:10:00 [facility] HC COMPLETE BLD COUNT 2020-07-24 08:43:00 [facility] W/AUTO DIFF COMPREHENSIVE METABOLIC 2020-07-24 08:43:00 [facility] PANEL MAGNESIUM LEVEL 2020-07-24 08:43:00 [facility] PHOSPHORUS LEVEL 2020-07-24 08:43:00 [facility] PROTHROMBIN TIME WITH INR 2020-07-24 08:43:00 [facility] PARTIAL THROMBOPLASTIN 2020-07-24 08:43:00 [facility] TIME (PTT) ESTIMATED GFR 2020-07-24 08:43:00 Shana Mendoza [facility] POC GLUCOSE 2020-07-24 08:39:00 [facility] POC GLUCOSE 2020-07-24 05:09:00 [facility] POC GLUCOSE 2020-07-24 01:28:00 [facility] POC GLUCOSE 2020-07-23 23:13:00 [facility] POC GLUCOSE 2020-07-23 20:39:00 [facility] XR HIP 3-4 VIEWS BILATERAL 2020-07-23 19:58:[address] [facility] XR LUMBAR SPINE COMPLETE 2020-07-23 19:57:00 [facility] 4+ VW POC GLUCOSE 2020-07-23 16:13:00 [facility] POC GLUCOSE 2020-07-23 13:06:00 [facility] POC GLUCOSE 2020-07-23 11:35:00 [facility] POC GLUCOSE 2020-07-23 10:31:00 [facility] HC COMPLETE BLD COUNT 2020-07-23 09:03:00 [facility] W/AUTO DIFF COMPREHENSIVE METABOLIC 2020-07-23 09:03:00 [facility] PANEL MAGNESIUM LEVEL 2020-07-23 09:03:00 [facility] PHOSPHORUS LEVEL 2020-07-23 09:03:00 [facility] PROTHROMBIN TIME WITH INR 2020-07-23 09:03:00 [facility] PARTIAL THROMBOPLASTIN 2020-07-23 09:03:00 [facility] TIME (PTT) ESTIMATED GFR 2020-07-23 09:03:00 Shana Mendoza [facility] POC GLUCOSE 2020-07-23 07:06:00 [facility] POC GLUCOSE 2020-07-23 02:11:00 [facility] POC GLUCOSE 2020-07-22 22:33:00 Carl, [facility] POC GLUCOSE 2020-07-22 20:14:00 Carl [facility] US ABDOMINAL DOPPLER 2020-07-22 19:00:[address] [facility] POC GLUCOSE 2020-07-22 18:43:00 Carl [facility] US HEPATIC 2020-07-22 18:10:00 [facility] ABDOMINAL PARACENTESIS 2020-07-22 17:40:[address] [facility] [address] [facility] IMAGING AFB STAIN 2020-07-22 17:34:00 [facility] AFB CULTURE 2020-07-22 17:34:00 [facility] AEROBIC CULTURE 2020-07-22 17:34:00 [facility] ANAEROBIC CULTURE 2020-07-22 17:34:00 [facility] GRAM STAIN 2020-07-22 17:34:00 Kelly [facility] LDH, [facility] [place] [facility] 2020-07-22 17:33:00 [facility] PROTEIN, [facility] [place] [facility] 2020-07-22 17:33:00 delano [facility] CELL COUNT AND 2020-07-22 17:33:00 [facility] DIFFERENTIAL, BODY FLUID ALBUMIN, [facility] [place] [facility] 2020-07-22 17:33:00 [facility] B[facility]IN T[facility] 2020-07-22 17:33:00 [facility] FLUID PH, [facility] [place] [facility] 2020-07-22 17:33:00 [facility] GLUCOSE LEVEL, [facility] [place] [facility] 2020-07-22 17:33:[address] [facility] TRIGLYCERIDES, MISC FLUID 2020-07-22 17:33:00 MaeganmaBonny couch [facility] TTE COMPLETE, WO CONTRAST, 2020-07-22 16:01:45 [facility] W DOPPLER ([id number]) ECG 12-LEAD 2020-07-22 14:13:26 [facility] POC GLUCOSE 2020-07-22 13:14:00 [facility] POC GLUCOSE 2020-07-22 10:08:00 [facility] ANTI MITOCHONDRIA SCREEN 2020-07-22 06:26:00 [facility] HC COMPLETE BLD COUNT 2020-07-22 06:26:00 [facility] W/AUTO DIFF HEPATITIS A ANTIBODY IGM 2020-07-22 06:25:00 [facility] Awais HEPATITIS B SURFACE 2020-07-22 06:25:00 [facility] ANTIGEN Awais HEPATITIS B CORE ANTIBODY 2020-07-22 06:25:00 [facility] TOTAL Awais HEPATITIS C ANTIBODY 2020-07-22 06:25:00 [facility] Awais IMMUNOGLOBULIN M 2020-07-22 06:24:00 [facility] Awais CANCER ANTIGEN 19-9 2020-07-22 06:24:00 [facility] COMPREHENSIVE METABOLIC 2020-07-22 06:24:00 [facility] PANEL MAGNESIUM LEVEL 2020-07-22 06:24:00 [facility] PHOSPHORUS LEVEL 2020-07-22 06:24:00 [facility] ESTIMATED GFR 2020-07-22 06:24:00 Shana Mendoza [facility] ALPHA FETOPROTEIN 2020-07-22 06:23:00 [facility]ais CARCINOEMBRYONIC ANTIGEN 2020-07-22 06:23:00 [facility] ([facility]) Awais POC GLUCOSE 2020-07-22 06:21:00 [facility] PROTHROMBIN TIME WITH INR 2020-07-22 06:20:00 [facility] PARTIAL THROMBOPLASTIN 2020-07-22 06:20:00 [facility] TIME (PTT) POC GLUCOSE 2020-07-22 03:01:00 [facility] POC GLUCOSE 2020-07-22 01:52:[address] [facility] [address] CHEST WO CONTRAST 2020-07-22 00:00:04 [facility] ANTI SMOOTH MUSCLE AB 2020-07-21 21:20:00 [facility] SCREEN KYLIE 2020-07-21 21:20:00 [facility] HIV AG/AB COMBINATION 2020-07-21 21:20:00 [facility] TROPONIN 2020-07-21 21:20:00 [facility] PROCALCITONIN 2020-07-21 21:20:00 [facility] HEPATITIS ACUTE PANEL 2020-07-21 21:20:00 [facility] ALCOHOL LEVEL, BLOOD 2020-07-21 21:20:00 [facility] ANTI SMOOTH MUSCLE AB 2020-07-21 21:20:00 [facility] TITER BLOOD CULTURE, AEROBIC & 2020-07-21 21:18:00 [facility] ANAEROBIC COVID-19 QUALITATIVE 2020-07-21 21:18:00 [facility] RT-PCR BLOOD CULTURE, AEROBIC & 2020-07-21 21:17:00 [facility] ANAEROBIC LACTIC ACID LEVEL 2020-07-21 20:17:00 [facility] PROCALCITONIN 2020-07-21 20:17:00 [facility] FERRITIN LEVEL 2020-07-21 20:17:00 [facility] FOLATE LEVEL 2020-07-21 20:17:00 [facility] LDH 2020-07-21 20:17:00 [facility] TOTAL IRON BINDING 2020-07-21 20:17:00 [facility] CAPACITY THYROID STIMULATING 2020-07-21 20:17:00 [facility] HORMONE VITAMIN B12 LEVEL 2020-07-21 20:17:00 [facility] TROPONIN 2020-07-21 20:17:00 [facility] CT RENAL STONE PROTOCOL 2020-07-21 20:09:37 [facility] DC CRITICAL CARE, E/M 2020-07-21 18:35:43 [facility] 30-74 MINUTES XR CHEST 1 VW PORTABLE 2020-07-21 18:06:00 [facility] URINE CULTURE 2020-07-21 17:25:00 [facility] HC COMPLETE BLD COUNT 2020-07-21 17:25:00 [facility] W/AUTO DIFF COMPREHENSIVE METABOLIC 2020-07-21 17:25:00 [facility] PANEL LIPASE LEVEL 2020-07-21 17:25:00 [facility] URINALYSIS SCREEN AND 2020-07-21 17:25:00 [facility] MICROSCOPY, WITH REFLEX TO CULTURE PHOSPHORUS LEVEL 2020-07-21 17:25:00 [facility] MAGNESIUM LEVEL 2020-07-21 17:25:00 [facility] TROPONIN 2020-07-21 17:25:00 [facility] B NATRIURETIC PEPTIDE 2020-07-21 17:25:00 [facility] AMMONIA LEVEL 2020-07-21 17:25:00 Mendoza, [facility] ESTIMATED GFR 2020-07-21 17:25:00 Mendoza, [facility] PROTHROMBIN TIME WITH INR 2020-07-21 17:25:00 Mendoza, [facility] PARTIAL THROMBOPLASTIN 2020-07-21 17:25:00 [facility] TIME (PTT) LIPID PANEL 2020-07-21 17:25:00 [facility] PROCALCITONIN 2020-07-21 17:25:00 [facility] FERRITIN LEVEL 2020-07-21 17:25:00 [facility] TOTAL IRON BINDING 2020-07-21 17:25:00 Mendoza, [facility] CAPACITY LDH 2020-07-21 17:25:00 [facility] THYROID STIMULATING 2020-07-21 17:25:00 [facility] HORMONE GGT 2020-07-21 17:25:00 [facility] BILIRUBIN DIRECT 2020-07-21 17:25:[address] [facility] HEMOGLOBIN A1C 2020-07-21 17:25:00 [facility] FIBRINOGEN 2020-07-21 17:25:00 [facility] D-DIMER 2020-07-21 17:25:00 [facility] ACETAMINOPHEN LEVEL 2020-07-21 17:25:00 [facility] LIPID PANEL 2020-06-16 01:05:00 [facility] HEMATOCRIT 2020-06-16 01:05:00 [facility] ESTRADIOL 2020-06-16 01:05:00 [facility] PROLACTIN 2020-06-16 01:05:00 [facility] TESTOSTERONE, FREE/TOTAL 2020-06-16 01:05:00 Alhaji George I [facility] Medicine Plan of Care Planned Activity Planned Date Details Comments Source Future Scheduled 2021-04-05 DIABETES: RETINAL EYE [facility] Test 00:30:01 EXAM [code = DIABETES: RETINAL EYE EXAM] Future Scheduled 2021-04-05 [facility] Test 00:30:01 [code = DIABETIC FOOT EXAM] Future Scheduled 2021-04-05 SHINGLES [facility]IN[facility] (#[facility] 00:30:01 [code = SHINGLES VACCINES (#1)] Future Scheduled 2021-04-05 65+ P[facility]UMOCOCCAL [facility] Test 00:30:01 VACCINE (2 of 4 - PPSV23) [code = 65+ PNEUMOCOCCAL VACCINE (2 of 4 - PPSV23)] Future Scheduled 2021-04-05 COVID-19 VACCINE (2 - [facility] Test 00:30:01 Moderna 3-dose series) [code = COVID-19 VACCINE (2 - Moderna 3-dose series)] Future Scheduled 2021-04-05 INFLUENZA VACCINE [facility] Test 00:30:01 [code = INFLUENZA VACCINE] Future Scheduled TETANUS SHOT (ADULT) [facility] of Test [code = TETANUS SHOT Medicin e (ADULT)] Future Scheduled COVID-19 Vaccine (1) [facility] [code = COVID-19 Medicine Vaccine (1)] Future Scheduled ZOSTER VACCINE (1 of [facility] Test 2) [code = ZOSTER Medicine VACCINE (1 of 2)] Future Scheduled MEDICARE AWV (Initial) B [facility] Test [code = MEDICARE AWV Medicin e (Initial)] Future Scheduled FALL SCREEN [code = [facility] of Test FALL SCREEN] Medicine Future Scheduled PNEUMOVAX >=65 [facility] of Test (PPSV23) [code = Medicine PNEUMOVAX >=65 (PPSV23)] Future Scheduled FLU VACCINE > 6 MONTHS B [facility] Test [code = FLU VACCINE > Medici ne 6 MONTHS] Encounters Start End Encounter Admission Attending Care Care Encounter Source Date/Time Date/Time Type Type Clinicians Facility Department ID 2021-07-25 2021-07-25 Outpatient R [facility] [id number] [facility] 10:15:00 10:15:00 [id number] ity [facility] 2021-06-15 2021-06-15 Outpatient TRESA, [facility] [id number] [place] 00:00:00 00:00:00 SHANA [address] 2021-06-15 2021-06-15 Outpatient TRESA, [facility] [id number] [place] 00:00:00 00:00:00 SHANA [address] 2021-06-14 2021-06-14 Outpatient GTZ, [facility] [id number] [place] 00:00:00 00:00:00 SHANA 817 Method i 2021-06-12 2021-06-12 [id number] [facility] 11:30:00 11:30:00 BUCK [facility] 2021-06-12 2021-06-12 [facility] 1.2.840.114 [id number] [facility] 00:00:00 00:00:00 Buck Cope MULTISPEC 350.1.13.10 [facility] 4.2.7.2.686 [facility] [phone] [address] [facility] 2021-05-31 2021-06-04 Inpatient TRANMARVIN [facility] [id number] [place] 00:00:00 00:00:[address] 2021-05-26 2021-05-26 Outpatient KRISSY, [facility] [id number] [place] 00:00:00 00:00:00 KARL 790 Method i 2021-05-24 2021-05-24 Outpatient TRESA, [facility] [id number] [place] 00:00:00 00:00:00 SHANA [address] 2021-05-24 2021-05-24 Outpatient TRESA[facility] [id number] [place] 00:00:00 00:00:00 SHANA [address] 2021-05-18 2021-05-18 Outpatient KRISSY, [facility] [id number] [place] 00:00:00 00:00:00 KARL [address] 2021-05-11 2021-05-11 Outpatient KRISSY, [facility] [id number] [place] 00:00:00 00:00:00 KALR 524 Method i 2021-05-04 2021-05-04 Outpatient KRISSY, [facility] [id number] [place] 00:00:00 00:00:00 KARL 373 Method i 2021-04-28 2021-04-28 Outpatient KRISSY, [facility] [id number] [place] 00:00:00 00:00:00 KARL 850 Method i 2021-04-28 2021-04-28 Outpatient KRISSY, [facility] [id number] [place] 00:00:00 00:00:00 KARL 428 Method i 2021-04-27 2021-04-27 Outpatient KRISSY, [facility] [id number] [place] 00:00:00 00:00:00 KARL 033 Method i 2021-04-20 2021-04-20 Outpatient KRISSY, [facility] [id number] [place] 00:00:00 00:00:00 KARL 629 Method i 2021-04-13 2021-04-13 Outpatient KRISSY, [facility] [id number] [place] 00:00:00 00:00:00 KARL 193 Method i 2021-04-06 2021-04-06 Outpatient KRISSY, [facility] [id number] [place] 00:00:00 00:00:00 KARL 331 Method i 2021-04-03 2021-04-03 Office CARLOS Ken[place] 1.2.840.114 [id number] [facility] 11:45:00 12:04:01 Visit Buck BAEZ 350.1.13.10 Iker 4.2.7.2.686 [facility] [phone] [facility] tavares [place] [address] [facility] 2021-03-31 2021-03-31 Janeen Fernandez 1.2.840.1 [id number] Methodi 00:00:00 00:00:00 Only Ayla 47816.1.1 664 3.430.2.7 Hospit a .3.803456 l .8 2021-03-31 2021-03-31 Janeen Oakes, 1.2.840.1 [id number] Methodi 00:00:00 00:00:00 Only Karl 11207.1.[address] 3.430.2.7 Hospit a .3.237479 l .8 2021-03-30 2021-03-30 [facility], 1.2.840.1 [id number] [place] 00:00:00 00:00:00 Encounter KARL 17410.1.1 [address] 3.[address].2.[address] .3.634059 .8 2021-03-30 2021-03-30 Travel 1.2.840.1 1.2.529.252 [id number] Methodi 00:00:00 00:00:[address] 3.430.2.7 0.2.7.3.698 Ho spita .3.115461 084.8 l .8 2021-03-27 2021-03-27 [facility], 1.2.840.1 [id number] Methodi 12:50:50 13:52:12 Visit Karl 32381.1.[address] 3.430.2.7 Hospit a .3.161174 l .8 2021-03-27 2021-03-27 Travel 1.2.840.1 1.2.264.429 4789 [id number] Methodi 00:00:00 00:00:[address] 3.430.2.7 0.2.7.3.698 Ho spita .3.694786 084.8 l .8 2021-03-24 2021-03-24 Travel 1.2.840.1 1.2.376.564 [id number] Methodi 00:00:00 00:00:[address] 3.430.2.7 0.2.7.3.698 Ho spita .3.371228 084.8 l .8 2021-03-24 2021-03-24 Orders Serban, 1.2.840.1 [id number] Methodi 00:00:00 00:00:00 Only Ayla 24087.1.[address] 3.430.2.7 Hospit a .3.728398 l .8 2021-03-23 2021-03-23 [facility], 1.2.840.1 [id number] [place] 00:00:00 00:00:00 Encounter KARL 13928.1.1 [address] .3.595238 .8 2021-03-22 2021-03-22 Travel 1.2.840.1 1.2.543.716 3770 [id number] Methodi 00:00:00 00:00:[address] 3.430.2.7 0.2.7.3.698 Ho spita .3.693311 084.8 l .8 2021-03-17 2021-03-17 Orders Serban, 1.2.840.1 [id number] Methodi 00:00:00 00:00:00 Only Ayla 50107.1.[address] 3.430.2.7 Hospit a .3.729478 l .8 2021-03-17 2021-03-17 Orders [facility], 1.2.840.1 [id number] Methodi 00:00:00 00:00:00 Only Karl 78104.1.[address] 3.430.2.7 Hospit a .3.070416 l .8 2021-03-16 2021-03-16 [facility], 1.2.840.1 [id number] [place] 00:00:00 00:00:00 Encounter KARL 59465.1.1 [address] .3.922260 .8 2021-03-16 2021-03-16 Orders [facility], 1.2.840.1 [id number] Methodi 00:00:00 00:00:00 Only Karl 89620.1.[address] 3.430.2.7 Hospit a .3.635366 l .8 2021-03-16 2021-03-16 Travel 1.2.840.1 1.2.886.473 2217 [id number] Methodi 00:00:00 00:00:[address] 3.430.2.7 0.2.7.3.698 Ho spita .3.881541 084.8 l .8 2021-03-13 2021-03-13 Orders Serban, 1.2.840.1 [id number] Methodi 00:00:00 00:00:00 Only Ayla 74170.1.[address] 3.430.2.7 Hospit a .3.225138 l .8 2021-03-09 2021-03-09 [facility], 1.2.840.1 [id number] [place] 00:00:00 00:00:00 Encounter KARL 52304.1.1 [address] .3.125153 .8 2021-03-09 2021-03-09 Travel 1.2.840.1 1.2.981.317 2400 [id number] Methodi 00:00:00 00:00:[address] 3.430.2.7 0.2.7.3.698 Ho spita .3.301592 084.8 l .8 2021-03-03 2021-03-03 [facility], 1.2.840.1 [id number] Methodi 00:00:00 00:00:00 Only Karl 62672.1.[address] 3.430.2.7 Hospit a .3.396868 l .8 2021-02-28 2021-02-28 Travel 1.2.840.1 1.2.255.614 9150 [id number] Methodi 00:00:00 00:00:[address] 3.430.2.7 0.2.7.3.698 Ho spita .3.915562 084.8 l .8 2021-02-23 2021-02-23 [facility], 1.2.840.1 [id number] Methodi 12:47:03 23:59:00 Encounter Karl 21314.1.[address] 3.430.2.7 Hospit a .3.913784 l .8 2021-02-23 2021-02-23 Travel 1.2.840.1 1.2.201.942 [id number] Methodi 00:00:00 00:00:[address] 3.430.2.7 0.2.7.3.698 Ho spita .3.128557 084.8 l .8 2021-02-20 2021-02-20 Travel 1.2.840.1 1.2.280.939 2314 [id number] [facility] 00:00:00 00:00:[address] 3.430.2.7 0.2.7.3.698 Ho spita .3.719543 084.8 l .8 2021-02-17 2021-02-17 [facility] 1.2.840.1 [id number] Methodi 11:50:54 12:50:17 Visit Karl 43809.1.[address] 3.430.2.7 Hospit a .3.740197 l .8 2021-02-17 2021-02-17 Travel 1.2.840.1 1.2.468.321 4573 [id number] Methodi 00:00:00 00:00:[address] 3.430.2.7 0.2.7.3.698 Ho spita .3.180681 084.8 l .8 2021-02-16 2021-02-16 [facility], 1.2.840.1 [id number] Methodi 00:00:00 00:00:00 Only Ayla 76941.1.[address] 3.430.2.7 Hospit a .3.450552 l .8 2021-02-15 2021-02-15 [facility], 1.2.840.1 [id number] Methodi 13:00:00 23:59:00 Encounter Rupinder 91749.1.[address] 3.430.2.7 Hospit a .3.347013 l .8 2021-02-15 2021-02-15 Travel 1.2.840.1 1.2.339.411 9234 [id number] Methodi 00:00:00 00:00:[address] 3.430.2.7 0.2.7.3.698 Ho spita .3.454589 084.8 l .8 2021-02-06 2021-02-06 Travel 1.2.840.1 1.2.236.169 6630 [id number] Methodi 00:00:00 00:00:[address] 3.430.2.7 0.2.7.3.698 Ho spita .3.509216 084.8 l .8 2021-02-03 2021-02-03 [facility], 1.2.840.1 [id number] Methodi 00:00:00 00:00:00 Only Karl 38075.1.[address] 3.430.2.7 Hospit a .3.708647 l .8 2021-02-02 2021-02-02 [facility], 1.2.840.1 [id number] 72022 25714 Methodi 23:59:00 23:59:00 Encounter Rupinder 61758.1.[address] 3.430.2.7 Hospit a .3.542865 l .8 2021-01-31 2021-02-01 Emergency Marcello Awad.2.8 40.1 [id number] Methodi 12:23:00 15:20:00 Ty Basurto 84721.1.[address] 3.430.2.7 Hospit a .3.550010 l .8 2021-01-31 2021-01-31 Travel 1.2.840.1 1.2.844.099 4960 [id number] Methodi 00:00:00 00:00:[address] 3.430.2.7 0.2.7.3.698 Ho spita .3.127659 084.8 l .8 2021-01-30 2021-01-30 [facility], 1.2.840.1 [id number] 91831 44243 Methodi 23:59:00 23:59:00 Encounter Rupinder 84267.1.[address] 3.430.2.7 Hospit a .3.117769 l .8 2021-01-25 2021-01-25 [facility], 1.2.840.1 [id number] 9534 Methodi 11:50:15 11:55:[address] 3.430.2.7 Hospit a .3.169978 l .8 2021-01-25 2021-01-25 Travel 1.2.840.1 1.2.973.064 4292 168542 Methodi 00:00:00 00:00:[address] 3.430.2.7 0.2.7.3.698 Ho spita .3.236733 084.8 l .8 2021-01-24 2021-01-24 [facility] 1.2.840.1 [id number] [id number] Methodi 11:12:18 11:29:32 ne Rupinder [address]270.1.[address] 3.430.2.7 Hospit a .3.960350 l .8 2021-01-06 2021-01-06 [facility], 1.2.840.1 [id number] 7178 Methodi 00:00:00 00:00:00 Only Karl 68817.1.[address] 3.430.2.7 Hospit a .3.910395 l .8 2021-01-05 2021-01-05 [facility] 1.2.840.1 [id number] 73414 Methodi 11:02:36 23:59:00 Encounter Karl 65321.1.[address] 3.430.2.7 Hospit a .3.284686 l .8 2021-01-05 2021-01-05 Travel 1.2.840.1 1.2.655.566 1689 032437 Methodi 00:00:00 00:00:[address] 3.430.2.7 0.2.7.3.698 Ho spita .3.150605 084.8 l .8 2020-12-27 2020-12-27 Travel 1.2.840.1 1.2.333.551 5567 [id number] Methodi 00:00:00 00:00:[address] 3.430.2.7 0.2.7.3.698 Ho spita .3.421976 084.8 l .8 2020-12-22 2020-12-22 [facility] 1.2.840.1 [id number] Methodi 12:57:15 23:59:00 Encounter Karl 14590.1.[address] 3.430.2.7 Hospit a .3.210263 l .8 2020-12-22 2020-12-22 Travel 1.2.840.1 1.2.258.330 4009 141820 Methodi 00:00:00 00:00:[address] 3.430.2.7 0.2.7.3.698 Ho spita .3.691346 084.8 l .8 2020-12-20 2020-12-20 Travel 1.2.840.1 1.2.898.031 4077 [id number] Methodi 00:00:00 00:00:[address] 3.430.2.7 0.2.7.3.698 Ho spita .3.777850 084.8 l .8 2020-12-09 2020-12-09 [facility], 1.2.840.1 [id number] 51872 Methodi 12:41:04 23:59:00 Encounter Karl 33763.1.[address] 3.430.2.7 Hospit a .3.282169 l .8 2020-12-09 2020-12-09 [facility], 1.2.840.1 [id number] 4600 Methodi 11:15:03 11:20:[address] 3.430.2.7 Hospit a .3.814442 l .8 2020-12-09 2020-12-09 [facility], 1.2.840.1 [id number] 2200 Methodi 09:59:53 10:53:14 Visit Karl 37549.1.[address] 3.430.2.7 Hospit a .3.623236 l .8 2020-12-09 2020-12-09 [facility], 1.2.840.1 [id number] 5031 Methodi 00:00:00 00:00:00 Only Karl 78433.1.[address] 3.430.2.7 Hospit a .3.452542 l .8 2020-12-08 2020-12-08 Travel 1.2.840.1 1.2.578.263 7637 849411 Methodi 00:00:00 00:00:[address] 3.430.2.7 0.2.7.3.698 Ho spita .3.802283 084.8 l .8 2020-11-16 2020-11-16 [facility], 1.2.840.1 [id number] 93559 Methodi 12:39:10 23:59:00 Encounter Karl 76676.1.[address] 3.430.2.7 Hospit a .3.708458 l .8 2020-11-16 2020-11-16 Travel 1.2.840.1 1.2.379.398 9223 244458 Methodi 00:00:00 00:00:[address] 3.430.2.7 0.2.7.3.698 Ho spita .3.882553 084.8 l .8 2020-11-14 2020-11-14 [facility], 1.2.840.1 [id number] 38429 59653 Methodi 12:33:53 23:59:00 Encounter Karl 63076.1.[address] 3.430.2.7 Hospit a .3.229567 l .8 2020-11-14 2020-11-14 Travel 1.2.840.1 1.2.539.956 2215 513993 Methodi 00:00:00 00:00:[address] 3.430.2.7 0.2.7.3.698 Ho spita .3.688478 084.8 l .8 2020-11-11 2020-11-11 [facility], 1.2.840.1 [id number] 8763 Methodi 11:26:15 12:44:45 Visit Karl 48486.1.[address] 3.430.2.7 Hospit a .3.361355 l .8 2020-11-11 2020-11-11 Travel 1.2.840.1 1.2.039.695 8402 288804 Methodi 00:00:00 00:00:[address] 3.430.2.7 0.2.7.3.698 Ho spita .3.755136 084.8 l .8 2020-11-10 2020-11-10 [facility], 1.2.840.1 [id number] 0134 Methodi 00:00:00 00:00:00 Only Ayla 90170.1.[address] 3.430.2.7 Hospit a .3.617395 l .8 2020-11-09 2020-11-09 [facility], 1.2.840.1 [id number] 9952 Methodi 00:00:00 00:00:00 Only Ayla 12195.1.[address] 3.430.2.7 Hospit a .3.484823 l .8 2020-09-21 2020-10-13 Office [facility], 1.2.840.1 [id number] 6026 Methodi 09:53:51 16:26:53 Visit Karl 09722.1.[address] 3.430.2.7 Hospit a .3.398407 l .8 2020-09-27 2020-09-27 [facility], 1.2.840.1 [id number] 16635 Methodi 10:00:00 23:59:00 Encounter Karl [address]2969.1.[address] 3.430.2.7 Hospit a .3.449893 l .8 2020-09-27 2020-09-27 Travel 1.2.840.1 1.2.286.272 9763 469606 Methodi 00:00:00 00:00:[address] 3.430.2.7 0.2.7.3.698 Ho spita .3.303595 084.8 l .8 2020-08-31 2020-09-22 [facility], 1.2.840.1 [id number] 6610 Methodi 09:51:14 00:45:44 Visit Karl 82448.1.[address] 3.430.2.7 Hospit a .3.700723 l .8 2020-09-22 2020-09-22 Refill [facility], 1.2.840.1 [id number] 8501 Methodi 00:00:00 00:00:[address] 3.430.2.7 Hospit a .3.634233 l .8 2020-09-22 2020-09-22 Refill [facility], 1.2.840.1 [id number] 1764 Methodi 00:00:00 00:00:[address] 3.430.2.7 Hospit a .3.904319 l .8 2020-09-22 2020-09-22 Refjoan Oakes, 1.2.840.1 [id number] 6286 Methodi 00:00:00 00:00:[address] 3.430.2.7 Hospit a .3.046071 l .8 2020-09-21 2020-09-21 Travel 1.2.840.1 1.2.082.656 1316 146961 Methodi 00:00:00 00:00:[address] 3.430.2.7 0.2.7.3.698 Ho spita .3.226071 084.8 l .8 2020-09-01 2020-09-01 Telephone [facility] 1.2.840.1 [id number] Methodi 00:00:00 00:00:00 Fan blank 30856.1.[address] J 3.430.2.7 Hospit a .3.828560 l .8 2020-08-31 2020-08-31 Travel 1.2.840.1 1.2.796.644 1187 573323 Methodi 00:00:00 00:00:[address] 3.430.2.7 0.2.7.3.698 Ho spita .3.687326 084.8 l .8 2020-08-22 2020-08-22 Telephone Khoury, 1.2.840.1 [id number] 2099 932624 Methodi 00:00:00 00:00:00 Catina Quiroz 60838.1.[address] 3.430.2.7 Hospit a .3.186905 l .8 2020-08-17 2020-08-17 Office Tavares Awan 1.2.840.1 104 [id number] Methodi 13:08:55 13:23:55 Visit Alysa TrivediEma 83500.1.[address] 3.430.2.7 Hospit a .3.357270 l .8 2020-08-17 2020-08-17 Travel 1.2.840.1 1.2.439.317 5988 303969 Methodi 00:00:00 00:00:[address] 3.430.2.7 0.2.7.3.698 Ho spita .3.081303 084.8 l .8 2020-08-12 2020-08-12 Telephone Khoury, 1.2.840.1 [id number] Methodi 00:00:00 00:00:[address]65.1[address] 3.430.2.7 Hospit a .3.789120 l .8 2020-08-03 2020-08-03 Telephone Annabelle, 1.2.840.1 [id number] Methodi 00:00:00 00:00:[address] 3.430.2.7 Hospit a .3.111368 l .8 2020-07-21 2020-07-26 [facility] Shana Mendoza 1.2.840.1 1040 18633 [id number] Methodi 11:18:00 15:20:00 Encounter Chau Henry 71563.1.[address] [place] 3.430.2.7 Hospita .3.857899 l .8 2020-07-22 2020-07-22 Camryn Zarate 1.2.840.1 [id number] Methodi 00:00:00 00:00:[address] 3.430.2.7 Hospit a .3.460885 l .8 2020-07-21 2020-07-21 Travel 1.2.840.1 1.2.698.149 5927 836403 Methodi 00:00:00 00:00:[address] 3.430.2.7 0.2.7.3.698 Ho spita .3.225165 084.8 l .8 2020-06-15 2020-06-15 Office Doris VANESSALana 1.2.840.114 803 09959 [facility] 17:18:35 19:40:39 Visit Alhaji Miles AMBULATOR 350.1.13.21 [employer] 0.2.7.2.686 243.7778125 [facility] kat 300 e 2020-05-23 2020-05-23 Office Kenyon [facility] 1.2.840.114 816 29531 15:04:57 15:52:06 Visit Buck Cope MULTISPEC 350.1.13.10 IALTY 4.2.7.2.686 CENTER [id number] [facility] Results Test Description Test Time Test Comments Results Result Comments Source SARS-CoV-2 (COVID-19) RNA [Presence] in Respiratory sp ecimen by 2021-06-01 05:47:20 KELTON with probe detection Test Item Value Reference Range Interpretation Comme nts SARS-CoV-2 (COVID-19) RNA [Presence] in Respiratory specimen by Not detected KELTON with probe detection (test code = 74986-8) Whether patient is employed in a healthcare setting (test code = Un known 81202-5) Whether the patient has symptoms related to condition of interest U nknown (test code = 46169-1) Whether the patient was hospitalized for condition of interest Unkn own (test code = 98464-8) Whether the patient was admitted to intensive care unit (ICU) for U nknown condition of interest (test code = 42530-8) Whether patient resides in a congregate care setting (test code = U nknown 47198-9) status (test code = 62273-3) Unknown Date and time of symptom onset (test code = 10555-6) Unknown Anaerobic [id number] 18:08:11 Test Item Value Reference Range Interpretation Comments Anaerobic No anaerobic Specimen culture isolate organisms InformationS pecimen (test code = isolated. Source: Periton eal 552) fluidSpecimen S ite: abdominal [facility] [id number] 23:36:50 Test Item Value Reference Range Interpretation Comments Aerobic culture No growth Specimen isolate (test after 3 days. InformationSp ecimen code = 498) Source: Periton eal fluidSpecimen S ite: abdominal [facility] (non-gynecological) [id number] 18:50:20 Test Item Value Reference Range Interpretation Comments Case number (test code = [id number]) Cytology See link below for (non-gynecological) PDF Lab Report report (test code = 1178) Result status (test code This is Final Report = [id number]) for [id number] [facility] [id number] 22:54:39 Test Item Value Reference Range Interpretation Comments Gram stain No WBC's or Specimen isolate (test organisms seen. Information Specimen code = 1469) Source: Periton eal fluidSpecimen S ite: abdominal [facility] HospitalCell count and differential, body [id number] 21:11:13 Test Item Value Reference Range Interpretation Comments [facility] fluid type Peritoneal (test code = 54812-2) Color, fluid (test Yellow code = 6824-7) Appearance, fluid Slightly hazy (test code = 9335-1) RBC, fluid (test SEE COMMENT See_Comment 1+ (0 - 500 code = 49920-9) RBC/CMM) [Automated message] The system which generated this result transmit niranjan reference range : /CMM. The reference range was not used to interpret this result as normal/abnormal . Nucleated cells, See_Comment [Automated fluid (test code = message] The 13076-9) system which generated this result transmit niranjan reference range : /CMM. The reference range was not used to interpret this result as normal/abnormal . Fluid mononuclear See Diff cell (test code = 1407) Neutrophils, fluid 17 % (test code = 32114-4) Lymphocytes, fluid 42 % (test code = 26057-0) Macrophages, fluid 40 % (test code = 42874-3) Plasma cells, fluid 1 % (test code = 49597-1) TOÑA (test code = peritoneal fluid TOÑA) [facility] misc [id number] 20:04:51 Test Item Value Reference Range Interpretation Comments Fluid type Peritoneal (test code = 25029-3) Albumin, 0.3 g/dL The reference fluid (test interval(s) and other code = method performa nce 1747-5) specifications have not been establishe d for this body fluid . The test results mu st be integrated into the clinical contex t for interpretation. This test has been m odified from the [facility] instructions. The performance characteristics were determined by Fuad chan in a manner consiste nt with CLIA requiremen ts. This test has n ot been cleared or appr jaida by the U.S. Food a nd Drug Administration. TOÑA (test peritoneal fluid code = TOÑA) [facility] [id number] 20:04:51 Test Item Value Reference Range Interpretation Comments Fluid type Peritoneal (test code = 57789-7) LDH, fluid 35 U/L The reference (test code = interval(s) and other 73009-5) method performa nce specifications have not been establishe d for this body fluid . The test results mu st be integrated into the clinical contex t for interpretation. This test has been m odified from the [facility] instructions. The performance characteristics were determined by Faud chan in a manner consiste nt with CLIA requiremen ts. This test has n ot been cleared or appr jaida by the U.S. Food a nd Drug Administration. TOÑA (test peritoneal fluid code = TOÑA) [facility] [id number] 20:04:51 Test Item Value Reference Range Interpretation Comments Fluid type Peritoneal (test code = 98989-4) Protein, 0.8 g/dL The reference fluid (test interval(s) and other code = method performa nce 2881-1) specifications have not been establishe d for this body fluid . The test results mu st be integrated into the clinical contex t for interpretation. This test has been m odified from the [facility] instructions. The performance characteristics were determined by Fuad chan in a manner consiste nt with CLIA requiremen ts. This test has n ot been cleared or appr jaida by the U.S. Food a nd Drug Administration. TOÑA (test peritoneal fluid code = TOÑA) [facility] [id number] 20:04:51 Test Item Value Reference Range Interpretation Comments Fluid type Peritoneal (test code = 40531-6) Triglyceride, 41 mg/dL The reference fluid (test interval(s) and other code = method performa nce 71927-1) specifications have not been establishe d for this body fluid . The test results mu st be integrated into the clinical contex t for interpretation. This test has been m odified from the [facility] instructions. The performance characteristics were determined by Fuad chan in a manner consiste nt with CLIA requiremen ts. This test has n ot been cleared or appr jaida by the U.S. Food a nd Drug Administration. TOÑA (test peritoneal fluid code = TOÑA) [facility], [facility] [id number] 20:04:50 Test Item Value Reference Range Interpretation Comments Fluid type Peritoneal (test code = 96022-3) Amylase, 7 U/L The reference fluid (test interval(s) and other code = method performa nce 1795-4) specifications have not been establishe d for this body fluid . The test results mu st be integrated into the clinical contex t for interpretation. This test has been m odified from the [employer] instructions. The performance characteristics were determined by Fuad chan in a manner consiste nt with CLIA requiremen ts. This test has n ot been cleared or appr jaida by the U.S. Food a nd Drug Administration. TOÑA (test peritoneal fluid code = TOÑA) [facility] Hospital[facility]ungus [id number] 06:15:57 Test Item Value Reference Range Interpretation Comments Fungus culture No growth Specimen isolate (test after 4 weeks InformationSp ecimen code = 1441) of Source: Ascites incubation. FluidSpecimen S ite: Not otherwise speci fied [facility] HospitalAFB [id number] 19:33:31 Test Item Value Reference Range Interpretation Comments AFB stain No acid fast Specimen (test code = bacilli (AFB) InformationSpe [facility] 676-7) seen. Source: Ascites FluidSpecimen S ite: Not otherwise speci fied [facility] [id number] 19:01:58 Test Item Value Reference Range Interpretation Comments Fungus smear No fungi Specimen (test code = observed. 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 12 [id number] 23:31:23 Test Item Value Reference Range Interpretation [...] change in initial forces of Septal leads- [facility] HospitalHepatic function [id number] 09:42:00 Test Item Value Reference Range Interpretation Comments Protein (test code = 7.3 g/dL 6.1-8.1 2885-2) Albumin, S (test 2.8 g/dL 3.6-5.1 L code = 1751-7) Globulin, total See_Comment H [Automated (test code = message] The 17230-4) system which generated this result transmitted reference range : 1.9 - 3.7 g/dL (calc). The reference range was not used to interpret this result as normal/abnormal . Albumin/globulin See_Comment L [Automated ratio (test code = message] The 771) system which generated this result transmitted reference [...] as normal/abnormal . Bilirubin, indirect See_Comment [Automa nirnajan (test code = 1970-03) message ] The [...] RAC) Organization Information: Site ID: RGA Name: [facility] Lab Address: [address] [place] [id number] Director: Shana Galicia Lab Interpretation Abnormal (test code = 75924-6) [facility] HospitalU[facility] [id number] 01:40:51 Test Item Value Reference Range Interpretation Comments Urine culture Mixed tremayne Specimen isolate (test <=10-3 col/cc InformationSp ecimen code = 42004-6) Source: Urin eSpecimen Site: Clean cat [facility]TESTOSTERONE, FREE/TOTAL [id number] 11:30:08 Test Item Value Reference Range Interpretation [...] Per formed At: [facility], [address] [place], [place] [id number] Laboratory Dire ctor: Jim rios M.D. CLI A Number [id number] Cap Accreditati on No. Lab Interpretation Abnormal (test code = 84442-1) [facility] [id number] 11:28:20 Test Item Value Reference Range Interpretation Comments ESTRADIOL LEVEL 23.5 PG/ML See_Comment Note: Values in (test code = 2243-4) the ran ge of 17-25 PG/ML may demon strate increas ed imprecision. C linical correlation is recommended. Unless Otherwis e Indicated, All Testing Performed At: [facility], [address] [place] [address] Motion Picture Cameraman: Jim Montes M.D. CLIA Number [id number] Cap Accreditati on No. [Auto mated message] The sy stem which generated this result transmit niranjan reference range : <=60.7. The ref erence range was not u sed to interpret this result as normal/abnor mal. [facility] H[id number] 11:28:20 Test Item Value Reference Range Interpretation [...] Indic ated, All Testing Perform ed At: [facility], [address] [place], [place] [address] 4 Laboratory Dire ctor: Jim Montes M.D. CLIA Number [id number] Cap Accreditation N o. [Automated mess age] The system which generated this result transmitted ref erence range: 4.0 - 26.0 NG/M L. The reference range was not u sed to interpret this result as normal/abnormal. [facility] HospitalFSH + LH [id number] 11:28:20 Test Item Value Reference Range Interpretation Comments FOLLICLE STIMULATING See_Comment H [Autom ated message] HORMONE (test code = The sys tem which 43800-6) generated this result transmitted ref erence range: 1.5 - 12 .4 IU/L. The refer ence range was not u sed to interpret this result as normal/abnor mal. LUTEINIZING HORMONE See_Comment H Unless (test code = 01536-0) Otherw ise Indicated, All Testing Per formed At: [facility], [address] [place] [address] Laboratory Dire ctor: Jim rios M.D. CLIA Num mag [id number] Cap Accreditation N o. [id number] [Auto mated message] The sy stem which generated this result transmit niranjan reference range : 1.2 - 8.6 IU/L. The reference range was not used to int erpret this result as normal/abnormal . Lab Interpretation Abnormal (test code = 25960-6) [facility] HospitalLIPID [id number] 10:19:48 Test Item Value Reference Range Interpretation Comments CHOLESTEROL (test code See_Comment [Aut omated message] = 2093-3) The system [facility] generated this result transmitted ref erence range: <200 MG/ DL. The reference range was not used to int erpret this result as normal/abnormal . TRIGLYCERIDES (test See_Comment [Automa niranjan message] code = 2571-8) The system [facility] generated this result transmitted ref erence range: <150 MG/ DL. The reference range was not used to int erpret this result as normal/abnormal . HDL CHOLESTEROL (test See_Comment L [Auto mated message] code = 2085-9) The system [employer] generated this result transmitted ref erence range: >39 MG/D L. The reference range was not used to int erpret this result as normal/abnormal . LDL CHOLESTEROL See_Comment NOTE: CALCU LATED LDL CALCULATED (test code = [place] [address]-4) AAYUSH-HAUSER METHOD WHICHINCLUDES ADJUSTABLE TRIGLYCERIDE:VL DL CHOLESTEROL RAT IO.THIS FACTOR VARIES B Y MEASURED TRIGLY CERIDE AND NON-HDLCHOL ESTEROL CONCENTRATIONS WITH INCREASED CALCU LATED LDL SEENIN HIGH ER TRIGLYCERIDE OR LOWER NON-HDL SPECIME NS. FOR MOREINFORMATION , SEE CLIENT ANNOUNCE MENT AT [email or web address] [Automated mess age] The system [employer] generated this result transmitted ref erence range: <100 MG/ DL. The reference range was not used to int erpret this result as normal/abnormal . LDL/HDL RATIO, SERUM See_Comment Unless (test code = 07632-7) Otherw ise Indicated, All Testing Per formed At: [facility], [address] [place] [address] Laboratory Dire ctor: Jim rios M.D. CLIA Num mag [id number] Cap Accreditation N o. [id number] [Auto mated message] The sy stem which generated this result transmit niranjan reference range : <3.55 RATIO. The refe rence range was not u sed to interpret this result as normal/abnor mal. Lab Interpretation Abnormal (test code = 37660-4) [facility] Hosp[id number] 06:55:01 Test Item Value Reference Range Interpretation Comments HEMATOCRIT (test code = 34.8 % 40.0-51.0 L Unless ) Otherwise Indic ated, All Testing Per formed At: [facility], [address] [place] [address] Laboratory Dire ctor: Jim rios M.D. CLIA Num mag [id number] Cap Accreditation N o. [id number] Lab Interpretation Abnormal (test code = 13719-0) [facility])2019-08-29 09:44:00 Test Item Value Reference Range Interpretation Comments SARS-COV2/RT-PCR (test code = Positive Not Detected, Negative A A [id number]) SARS-COV-2 PERFORMING LAB [facility] (test code = 9636567) Results are for the detection of SARS-CoV-2 [...] 564(g) of the Act.Fact Sheet for Healthcare Providers:https://www.quH-umus.com/sites/default/files/product/d ocuments/Ozad_Khqgx_MB_Rjewkmkry_Teoo_RSIY-YcI-2.pdfFact Sheet for Healthcare Patients:https://www.Ploonge.[employer]raScience/sites/default/files/product/documents/Fact_Sheet_Patients_Lyra_SARS-CoV -2.pdfPerforming Laboratory:[facility] [place] [address]
[2021-06-28 13:10] LABS: Urine Blood Negative (Negative); Urine Glucose Negative (Negative); Urine Protein Negative (Negative); Urine Specific Gravity 1.025 (1.005-1.030); Urine pH 5.5 (5.0-7.0)
[2021-06-28 13:46] LABS: Absolute Lymphocytes (CBC) 1.3 K/uL (0.7-4.9); Hematocrit 27.2 % (39.6-49.0); Lymphocytes % 21.4 % (15.3-44.8); MPV 9.6 fL (7.6-11.3); RBC Red Blood Cell Count 2.86 M/uL (4.33-5.43)
[2021-06-28 13:48] LABS: Protime INR 2.04
[2021-06-28 13:51] LABS: Albumin 2.2 g/dL (3.4-5.0); Bilirubin Direct 1.1 mg/dL (0-0.2); Bilirubin Total 2.3 mg/dL (0.2-1.0); Magnesium 2.2 mg/dL (1.8-2.4); Potassium 5.3 mmol/L (3.5-5.1); Protein, Total 6.8 g/dL (6.4-8.2)
[2021-06-28 14:00] LABS: Troponin High Sensitivity 82.3 pg/mL (<58.9)
[2021-06-28] MEDS ORDERED: NA CHLORIDE 0.9% 1,000 ML ONE (14:17)
[2021-06-28] MEDS ORDERED: CEFTRIAXONE 1000 MG/VIAL ONE (14:36)
--- NOTE | 2021-06-28 15:23 | RAD REPORT ---
EXAM DESCRIPTION: CT - Head Brain Wo Cont - 06/28/2021 2:58 pm CLINICAL HISTORY: Generalized weakness COMPARISON: None TECHNIQUE: Computed axial tomography of the head was obtained. IV contrast was not requested. All CT scans are performed using dose optimization technique as appropriate and may include automated exposure control or mA/KV adjustment according to patient size. FINDINGS: An intracranial bleed is not seen . The ventricles are normal in caliber. No extra-axial fluid collection is noted. Mild low-density areas within periventricular, deep and subcortical white matter likely represent isc hemic changes secondary to small vessel disease. Fluid within the sinuses/ mastoids is not seen. IMPRESSION: No acute intracranial abnormality is seen. If patient's symptoms persist MRI of the bra in would be recommended.
--- NOTE | 2021-06-28 15:35 | RAD REPORT ---
EXAM DESCRIPTION: CT - Abdomen Pelvis Wo Contrast - 06/28/2021 3:03 pm CLINICAL HISTORY: Abdominal pain COMPARISON: June 17, 2021 TECHNIQUE: Computed axial tomography of the abdomen and pelvis was obtained. IV and oral contrast we re not requested. All CT scans are performed using dose optimization technique as appropriate and may include automated exposure control or mA/KV adjustment according to patient size. FINDINGS: The evaluation of solid organs, vessels and bowel is limited secondary to the lack of con trast administration. A small to moderate right pleural effusion. Cirrhotic liver. Mild splenomegaly. Moderate hiatal hernia. Upper abdomen and paraesophageal varices. Atrophic pancreas. Adrenals and kidneys grossly normal. A right inguinal hernia contains ascites. Moderate amount of ascites. Postsurgical changes involve th e spine. Cholelithiasis. No evidence of diverticulitis. Normal appendix IMPRESSION: Cirrhosis with moderate pleural effusion Small to moderate right pleural.
--- NOTE | 2021-06-28 15:56 | RAD REPORT ---
EXAM DESCRIPTION: Rudy Single View06/28/2021 2:15 pm CLINICAL HISTORY: Abdominal pain COMPARISON: 2020 FINDINGS: Small to moderate right pleural effusion with basilar atelectasis Left lung appears clear. Moderate hiatal hernia. Postsurgical changes involve chest. The heart is normal size
[2021-06-28 15:58] LABS: Blood Morphology Comment NOT SEEN (NOT SEEN); Platelet Estimate DECR; White Blood Cell Scan OK (OK)
[2021-06-28 16:47] LABS: Urine Bacteria <20 /HPF (NONE SEEN)
--- NOTE | 2021-06-28 18:35 | EDPHYS ---
Physician Documentation [facility] Name: Tacho Lundy Age: 76 yrs Sex: Male : 1945 Arrival Date: 06/28/2021 Time: 12:52 Bed 20 Private MD: ED Physician Jacob Villarreal HPI: 06/28 13:05 This 76 yrs old Unknown Male presents to ER via EMS with complaints of General Weakness.cp 13:05 The patient presents with abdominal pain. cp 13:05 Onset: The symptoms/episode began/occurred today. The symptoms do not radiate. cp Associated signs and symptoms: Pertinent positives: general weakness, decreased appetite, Pertinent negatives: chest pain, diarrhea, fever, headache, vomiting, altered mental status. The symptoms are described as achy. Historical: - Allergies: 12:54 Vancomycin; ll1 - PMHx: 12:54 back surgery; Hypertension; Hernia; Diabetes - IDDM; cirrhosis of liver; Chronic pain; ll1 - Immunization history:: Adult Immunizations up to date, Client reports receiving the 2nd dose of the Covid vaccine. - Social history:: Smoking status: unknown. ROS: 13:10 Constitutional: Negative for body aches, chills, fever, poor PO intake. cp 13:10 Eyes: Negative for injury, pain, redness, and discharge. cp 13:10 ENT: Negative for drainage from ear(s), ear pain, sore throat, difficulty swallowing, difficulty handling secretions. 13:10 Cardiovascular: Negative for chest pain, edema, palpitations. 13:10 Respiratory: Negative for cough, shortness of breath, wheezing. 13:10 Abdomen/GI: Positive for abdominal pain, Negative for vomiting, diarrhea, constipation, anorexia, black/tarry stool, rectal bleeding. 13:10 Neuro: Positive for weakness, Negative for altered mental status, headache. 13:10 All other systems are negative. Exam: 13:15 Constitutional: The patient appears in no acute distress, alert, awake, cp non-diaphoretic, non-toxic, well developed, frail. 13:15 Head/Face: Normocephalic, atraumatic. cp 13:15 Eyes: Periorbital structures: appear normal, Pupils: equal, round, and reactive to light and accomodation, Extraocular movements: intact throughout, Conjunctiva: normal, no exudate, no injection, Sclera: no appreciated abnormality, Lids and lashes: appear normal, bilaterally. 13:15 ENT: External ear(s): are unremarkable, Nose: is normal, Mouth: Lips: dry, Oral mucosa: moist, Posterior pharynx: Airway: no evidence of obstruction, patent, Voice: is normal. 13:15 Neck: ROM/movement: is normal, is supple, without pain, no range of motions limitations, no meningismus. 13:15 Chest/axilla: Inspection: normal, Palpation: is normal, no crepitus, no tenderness. 13:15 Cardiovascular: Rate: normal, Rhythm: regular, Edema: is not appreciated, JVD: is not appreciated. 13:15 Respiratory: the patient does not display signs of respiratory distress, Respirations: normal, no use of accessory muscles, no retractions, labored breathing, is not present, Breath sounds: are clear throughout, no decreased breath sounds, no stridor, no wheezing. 13:15 Abdomen/GI: Inspection: distension, that is mild, Bowel sounds: active, all quadrants, Palpation: soft, in all quadrants, moderate abdominal tenderness, in the right upper quadrant, rebound tenderness, is not appreciated, involuntary guarding, is not appreciated, Rectal exam: Stool: brown, guaiac negative, soft. 13:15 Back: pain, is absent, ROM is normal. 13:15 Skin: cellulitis, is not appreciated, no rash present. 13:15 Neuro: Orientation: to person, place \\T\\ time. Mentation: is normal, Motor: moves all fours, general weakness with no focal deficits. 13:40 ECG was reviewed by the Attending Physician. cp Vital Signs: 12:52 BP 125 / 76; Pulse 67; Resp 18; Temp 97.6(TE); Pulse Ox 96% on R/A; Weight 83.91 kg; ll1 Height 5 ft. 9 in. (175.26 cm); Pain 0/10; 15:00 BP 104 / 46; Pulse 67; Resp 16; Temp 97.7; Pulse Ox 100% ; Pain 0/10; jh6 18:30 BP 111 / 51; Pulse 80; Resp 17; Pulse Ox 100% ; Pain 0/10; jh6 21:19 BP 100 / 48; Pulse 67; Resp 17; Pulse Ox 98% on R/A; kd3 23:05 BP 111 / 57; Pulse 72; Resp 17; Pulse Ox 98% on R/A; kd3 23:10 Temp 98.5(T); kd3 12:52 Body Mass Index 27.32 (83.91 kg, 175.26 cm) ll1 MDM: 12:59 Patient medically screened. 15:53 Physician consultation: German Martin MD was contacted at 15:53, regarding patient's cp condition, after a discussion of the case, a recommendation for transfer for higher level of care is made. 17:00 ED course: Attempt to contact DR Roland unsuccessful as office reports he will be out cp of office through the week. 17:00 Data reviewed: vital signs, nurses notes, lab test result(s), EKG, radiologic studies, cp CT scan, plain films. 17:00 Test interpretation: by ED physician or midlevel provider: ECG, plain radiologic cp studies. 17:18 Physician consultation: Oly Alvarez MD was called at 17:18, was contacted at 17:18, regarding admission, to the telemetry unit. requests to wait until night hospitalist arrives to discuss patient. 18:20 Physician consultation: Pineda Diaz was contacted at 18:20, regarding admission, to the telemetry unit. patient's condition, after a discussion of the case, a recommendation for transfer for higher level of care is made, through use of transfer services of [facility]. 18:45 ED course: [facility] transfer services report no beds available at this time. Will cp admit patient to hospitalist as requested by DR Martin. 06/28 12:59 Order name: Basic Metabolic Panel; Complete Time: 14:17 cp 06/28 14:17 Interpretation: Normal except: NA 135; K 5.3; CL 109; CO2 20; GLUC 122; BUN 45; CRE cp 2.20; GFR 29; CA 8.1. 06/28 12:59 Order name: CBC with Diff; Complete Time: 16:55 06/28 14:01 Interpretation: Normal except: WBC 5.9; RBC 2.86; HGB 9.4; HCT 27.2; PLT 80; RDW 16.0; cp EOSINOPHIL % 6.3. 06/28 12:59 Order name: LFT's; Complete Time: 14:17 cp 06/28 14:18 Interpretation: Normal except: AST 54; ALK 223; BILIT 2.3; BILID 1.1; ALB 2.2; GLOB cp 4.6; A/G 0.5. 06/28 12:59 Order name: Magnesium; Complete Time: 14:17 cp 06/28 12:59 Order name: NT PRO-BNP; Complete Time: 14:17 cp 06/28 14:18 Interpretation: Abnormal: NT PRO-BNP 4560. cp 06/28 12:59 Order name: PT-INR; Complete Time: 13:50 cp 06/28 13:50 Interpretation: Reviewed. 06/28 12:59 Order name: Troponin HS; Complete Time: 14:17 cp 06/28 14:44 Interpretation: Abnormal: Troponin HS 82.3. cp 06/28 12:59 Order name: Lipase; Complete Time: 14:17 cp 06/28 12:59 Order name: Urine Microscopic Only; Complete Time: 16:55 cp 06/28 12:59 Order name: Lactate; Complete Time: 13:52 cp 06/28 13:53 Interpretation: Normal except: LAC 2.3. cp 06/28 12:59 Order name: Procalcitonin; Complete Time: 14:17 cp 06/28 12:59 Order name: AMMONIA; Complete Time: 13:52 cp 06/28 13:52 Interpretation: Abnormal: SAUL 58. cp 06/28 12:59 Order name: Blood Culture Adult (2) 06/28 13:11 Order name: Urine Dipstick-Ancillary; Complete Time: 13:50 EDMS 06/28 12:59 Order name: XRAY Chest (1 view); Complete Time: 15:58 cp 06/28 12:59 Order name: EKG; Complete Time: 13:01 cp 06/28 12:59 Order name: Cardiac monitoring; Complete Time: 13:26 cp 06/28 12:59 Order name: EKG - Nurse/Tech; Complete Time: 13:26 cp 06/28 12:59 Order name: IV Saline Lock; Complete Time: 13:26 cp 06/28 12:59 Order name: Labs collected and sent; Complete Time: 13:26 cp 06/28 14:37 Order name: Abdomen ; Complete Time: 15:43 EDMS 06/28 15:44 Interpretation: Report reviewed. 06/28 14:37 Order name: Head Brain Wo Cont; Complete Time: 15:25 EDMS 06/28 15:27 Interpretation: Report reviewed. cp 06/28 16:00 Order name: CBC Smear Scan EDMS 06/28 18:38 Order name: COVID-19 SARS RT PCR (Document "Date of Onset" if Symptomatic) bd 06/28 12:59 Order name: O2 Per Protocol; Complete Time: 13:26 cp 06/28 12:59 Order name: O2 Sat Monitoring; Complete Time: 13:26 cp 06/28 12:59 Order name: Urine Dipstick-Ancillary (obtain specimen); Complete Time: 13:26 cp 06/28 13:21 Order name: Labs - recollect needed: recollect urine, send in a yellow top tube; bd Complete Time: 20:40 EC:40 Rate is 70 beats/min. Rhythm is regular. ME interval is prolonged at 256 msec. QRS cp interval is prolonged at 138 msec. QT interval is normal. T waves are Inverted in lead aVR. Interpreted by me. Reviewed by me. Administered Medications: 14:16 Drug: NS 0.9% 1000 ml Route: IV; Rate: 500 ml/hr; Site: left forearm; ll1 21:21 Follow up: Response: No adverse reaction; IV Status: Completed infusion kd3 14:36 Drug: Rocephin - (cefTRIAXone) 1 grams Route: IVPB; Infused Over: 30 mins; Site: left ll1 forearm; 21:20 Follow up: Response: No adverse reaction; IV Status: Completed infusion kd3 Disposition Summary: 06/28/21 18:51 Hospitalization Ordered Hospitalization Status: Inpatient Admission cp Provider: Oly Alvarez cp Location: Telemetry/MedSurg (Inpatient) cp Condition: Stable(06/28/21 18:51) cp Problem: new(06/28/21 18:51) cp Symptoms: have improved(06/28/21 18:51) cp Bed/Room Type: Standard cp Room Assignment: 201(06/28/21 21:59) eb1 Diagnosis - Acute kidney failure, unspecified(06/28/21 18:51) cp - Alcoholic cirrhosis of liver with ascites(06/28/21 18:51) cp - Anemia in other chronic diseases classified elsewhere cp - Hyperkalemia cp Forms: - Medication Reconciliation Form cp - SBAR form cp Addendum: 07/02/2021 07:27 Co-signature as Attending Physician, Jacob Villarreal MD I agree with the assessment and k dr plan of care. Signatures: Dispatcher [employer] EDMS Gila Arcos Kevin, MD MD kdr Herbie Gonsalez PA PA cp Nichole Odell, RN RN eb1 Casey Garcia RN RN ll1 Cynthia Kay RN kd3 Corrections: (The following items were deleted from the chart) 06/28 14:37 14:30 CT-ABD ordered. EDMS EDMS 14:37 14:30 CT-HEAD/BRAIN W/O CONTRAST ordered. EDMS EDMS 18:35 18:34 Doctor cp cp 18:50 18:34 [facility] cp cp 18:50 18:34 Higher level of care cp cp 18:50 18:34 Stable cp cp 18:50 18:34 an ongoing problem cp cp 18:50 18:34 have improved cp cp 18:50 18:34 Acute kidney failure, unspecified cp cp 18:50 18:34 Alcoholic cirrhosis of liver with ascites cp cp 18:50 18:35 Doctor cp cp 18:50 18:35 Anemia, unspecified cp cp 21:59 18:51 cp eb1
--- NOTE | 2021-06-28 18:35 | ER ---
Nurse's Notes [facility] Name: Tacho Lundy Age: 76 yrs Sex: Male : 1945 Arrival Date: 06/28/2021 Time: 12:52 Bed 20 Private MD: Diagnosis: Acute kidney failure, unspecified;Alcoholic cirrhosis of liver with ascites;Anemia in other chronic diseases classified elsewhere;Hyperkalemia Presentation: 06/28 12:52 Chief complaint: EMS states: BUSINESS IMPROVEMENT MANAGER OF PT CALLED PCP AND ADVISED THAT HE WAS NOT ll1 "FEELING WELL" AND THAT HE WAS NOT EATING. PCP WANTED PT EVALUATED. Coronavirus screen: Vaccine status: Patient reports receiving the 2nd dose of the covid vaccine. Ebola Screen: Patient negative for fever greater than or equal to 101.5 degrees Fahrenheit, and additional compatible Ebola Virus Disease symptoms Patient denies exposure to infectious person. Patient denies travel to an Ebola-affected area in the 21 days before illness onset. Initial Sepsis Screen: Does the patient meet any 2 criteria? No. Patient's initial sepsis screen is negative. Does the patient have a suspected source of infection? No. Patient's initial sepsis screen is negative. Risk Assessment: Do you want to hurt yourself or someone else? Patient reports no desire to harm self or others. Onset of symptoms was June 28, 2021. 12:52 Method Of Arrival: EMS: [facility] 12:52 Acuity: CORRY 3 ll1 Triage Assessment: 12:55 General: Appears in no apparent distress. General: Behavior is calm, cooperative. ll1 Pain:. Pain: Denies pain. Historical: - Allergies: 12:54 Vancomycin; ll1 - PMHx: 12:54 back surgery; Hypertension; Hernia; Diabetes - IDDM; cirrhosis of liver; Chronic pain; ll1 - Immunization history:: Adult Immunizations up to date, Client reports receiving the 2nd dose of the Covid vaccine. - Social history:: Smoking status: unknown. Screenin:56 Abuse screen: Denies threats or abuse. Nutritional screening: BUSINESS IMPROVEMENT MANAGER REPORTING THAT ll1 PT HAS BEEN UNABLE TO STAY AWAKE OVER THE LAST TWO DAYS AND IS NOT WANTING TO EAT OR DRINK PT HAS HX OF HELP C AND AND LAST PARACENTESIS WAS THIS LAST WEEK.. Tuberculosis screening: No symptoms or risk factors identified. Fall Risk Secondary diagnosis (15 points) impaired mobility, IV access (20 points). Ambulatory Aid- Crutches/Cane/Walker (15 pts). Assessment: 12:56 General: Appears in no apparent distress. Behavior is calm, cooperative. Pain: Denies ll1 pain. GI: Abd is soft and non tender X 4 quads. 14:00 Reassessment: No changes from previously documented assessment. Patient and/or family jh6 updated on plan of care and expected duration. Pain level reassessed. Patient is alert, oriented x 3, equal unlabored respirations, skin warm/dry/pink. manager respiratory care at bedside, waiting results. Patient denies pain at this time. 15:30 Reassessment: No changes from previously documented assessment. jh6 15:30 Pain: Denies pain. jh6 17:00 Reassessment: Patient and/or family updated on plan of care and expected duration. Pain jh6 level reassessed. Patient is alert, oriented x 3, equal unlabored respirations, skin warm/dry/pink. attempting to transfer pt to [facility] so that pts garbage stoker can see pt. 18:00 Reassessment: No changes from previously documented assessment. Patient and/or family jh6 updated on plan of care and expected duration. Pain level reassessed. Patient is alert, oriented x 3, equal unlabored respirations, skin warm/dry/pink. fluids completed. manager respiratory care of pt has gone home for the evening but has left her number. still waiting for results for transfer Patient denies pain at this time. 21:19 Reassessment: Patient and/or family updated on plan of care and expected duration. Pain kd3 level reassessed. Patient is alert, oriented x 3, equal unlabored respirations, skin warm/dry/pink. pt seen sleeping comfortably in bed. Vital Signs: 12:52 BP 125 / 76; Pulse 67; Resp 18; Temp 97.6(TE); Pulse Ox 96% on R/A; Weight 83.91 kg; ll1 Height 5 ft. 9 in. (175.26 cm); Pain 0/10; 15:00 BP 104 / 46; Pulse 67; Resp 16; Temp 97.7; Pulse Ox 100% ; Pain 0/10; jh6 18:30 BP 111 / 51; Pulse 80; Resp 17; Pulse Ox 100% ; Pain 0/10; jh6 21:19 BP 100 / 48; Pulse 67; Resp 17; Pulse Ox 98% on R/A; kd3 23:05 BP 111 / 57; Pulse 72; Resp 17; Pulse Ox 98% on R/A; kd3 23:10 Temp 98.5(T); kd3 12:52 Body Mass Index 27.32 (83.91 kg, 175.26 cm) ll1 ED Course: 12:52 Patient arrived in ED. ll1 12:52 Casey Garcia, CINDY is Primary Nurse. ll1 12:54 Triage completed. ll1 12:55 Arm band placed on Patient placed in an exam room, on a stretcher, on secured entrance monitor, ll1 on pulse oximetry. 12:57 Herbie Gonsalez PA is PHCP. cp 12:57 Jacob Villarreal MD is Attending Physician. cp 13:01 Bed in low position. Call light in reach. Side rails up X2. Adult w/ patient. 1 13:25 Initial lab(s) drawn, by ED staff, sent to lab. First set of blood cultures drawn by ED 5 staff. 13:26 XRAY Chest (1 view) Sent. 5 13:26 Missed attempt(s): 20 gauge in left antecubital area. 5 13:28 Warm blanket given. traffic monitor specialist on. Pulse ox on. NIBP on. 5 14:17 XRAY Chest (1 view) In Process Unspecified. EDMS 14:[address] ll1 14:58 Head Brain Wo Cont In Process Unspecified. EDMS 15:04 Abdomen In Process Unspecified. EDMS 18:38 [facility] bd 18:40 pt declined at [facility] due to no beds available at this time, per [place]. bd 18:50 Oly Alvarez MD is Hospitalizing Provider. cp 23:08 No provider procedures requiring assistance completed. Patient admitted, IV remains in kd3 place. Administered Medications: 14:16 Drug: NS 0.9% 1000 ml Route: IV; Rate: 500 ml/hr; Site: left forearm; ll1 21:21 Follow up: Response: No adverse reaction; IV Status: Completed infusion kd3 14:36 Drug: Rocephin - (cefTRIAXone) 1 grams Route: IVPB; Infused Over: 30 mins; Site: left ll1 forearm; 21:20 Follow up: Response: No adverse reaction; IV Status: Completed infusion kd3 Outcome: 18:34 ER care complete, transfer ordered by . fatmata 18:51 Decision to Hospitalize by Provider. cp 23:09 Admitted to Med/surg room 201, Report called to watson kd3 23:09 Condition: stable 23:09 Condition: stable 23:09 Instructed on the need for admit, Demonstrated understanding of instructions. 23:29 Patient left the ED. kd3 Signatures: Dispatcher [employer] EDMS Gila Arcos Corey, Kristal Day cp [facility] Casey Garcia RN RN ll1 Cynthia Kay RN RN kd3 Viry Carlton RN RN jh6
--- NOTE | 2021-06-28 19:26 | P.HP ---
Certification for Inpatient Patient admitted to: Inpatient With expected LOS: >2 Midnights Patient will require the following post-hospital care: None Practitioner: I am a practitioner with admitting privileges, knowledge of patient current condition, hospital course, and medical plan of care. Services: Services provided to patient in accordance with Admission requirements found in Title 42 Section 412.3 of the Code of Federal Regulations Patient History Date of Service: 06/28/21 Primary Care Provider: Dr. Martin Reason for admission: Acute renal failure History of Present Illness: 76-year-old male with history of alcoholic cirrhosis of the liver, CKD 3, diabetes type 2insulin-dependent and hypertension presents emergency department for abdominal discomfort, nausea. Patient was recently seen here and admitted on the of this month for similar complaint had paracentesis at that time and symptoms had improved and he was discharged. Patient reports last 2 days had increasing abdominal pain as well as nausea he is not able to tell me if he had any vomiting or diarrhea his labs in the emergency department were significant for acute kidney injury superimposed on CKD 3 currently his creatinine is 2.2 GFR 29 BUN 45 potassium 5.3 lactic acid 2.3 troponin high- sensitivity 82.3 ammonia 58 procalcitonin 0.6 INR is 2.04 white blood cell count 5.9. Given acute kidney injury, abdominal pain and nausea ED provider wishes to admit for further evaluation and management. Initially ED provider discussed c ase with patient's attending physician Dr. Martin who will be out of town, patient was attempted to be transferred to [facility] where he gets his GI care but they are at capacity. Allergies vancomycin Allergy (Verified 06/17/21 04:00) Itching/Hives/Rash Home Medications: Ezetimibe [Zetia*] 10 mg PO DAILY 05/23/18 Magnesium Oxide [Mag 0X*] 400 mg PO BID 05/23/18 Furosemide [Lasix*] 20 mg PO DAILY 06/26/18 Simvastatin 40 mg PO BEDTIME 06/26/18 Aspirin 81 mg PO DAILY 06/09/19 Carvedilol [Coreg] 12.5 mg PO BID 06/09/19 Glucerna Shake [Glucerna*] 237 ml PO TID #90 can 06/11/19 Amlodipine Besylate [Norvasc] 10 mg PO DAILY #30 tablet 08/30/19 Folic Acid 1 mg PO DAILY #90 tablet 12/01/20 Insulin Detemir [Levemir] 5 units SQ BEDTIME #1 bottle 12/01/20 Pantoprazole Sodium [Protonix] 40 mg PO DAILY #30 tablet. 12/01/20 Sucralfate [Carafate*] 1 gm PO ACHS #90 tab 12/01/20 Thiamine HCl [Vitamin B-1*] 100 mg PO DAILY #90 tablet 12/01/20 Ondansetron [Zofran] 4 mg PO Q6H PRN #10 tab 05/30/21 - Past Medical/Surgical History Diabetic: Yes -: CAD s/p Stent/ CABG -: DM -: HTN -: CAD -: Alcoholic cirrhosis of the liver -: CKD 3/ Dr. Frazier -: CABG -: Laminectomy -: Back sx -: Skin cancer sx -: hemorrhoidectomy Psychosocial/ Personal History: Patient lives at home with his debilitated - Family History Father -: Heart disease Mother -: Heart disease Notes: [place] - Social History Alcohol use: No CD- Drugs: No Caffeine use: Yes Place of Residence: Home Review of Systems 10-point ROS is otherwise unremarkable Gastrointestinal: Nausea, Vomiting, Abdominal Pain, As per HPI Physical Examination - Physical Exam General: Alert, In no apparent distress, Oriented x2 HEENT: Atraumatic, PERRLA, Mucous membr. moist/pink, EOMI, Sclerae nonicteric Neck: Supple, 2+ carotid pulse no bruit, No LAD, Without JVD or thyroid abnormality Respiratory: Clear to auscultation bilaterally, Normal air movement Cardiovascular: Regular rate/rhythm, Normal S1 S2 Capillary refill: <2 Seconds Gastrointestinal: Normal bowel sounds, No tenderness, Ascites Musculoskeletal: No tenderness Integumentary: No rashes Neurological: Normal speech, Normal strength at 5/5 x4 extr, Normal tone, Normal affect - Studies Laboratory Data (last 24 hrs) 06/28/21 13:25: PT 22.8 H, INR 2.04 06/28/21 13:25: WBC 5.9 D, Hgb 9.4 L, Hct 27.2 L, Plt Count 80 L 06/28/21 13:25: Sodium 135 L, Potassium 5.3 H, BUN 45 H, Creatinine 2.20 H D, Glucose 122 H, Magnesium 2.2, Total Bilirubin 2.3 H, AST 54 H, ALT 32, Alkaline Phosphatase 223 H, Lipase 80 Assessment and Plan - Plan Assessment: Acute worsening of CKD 3 with mild hyperkalemia Hepatic encephalopathy Alcoholic cirrhosis of the liver with thrombocytopenia Abdominal pain/nausea Elevated troponin Hypertension Plan: Acute worsening of CKD 3 with mild hyperkalemia: Nephrology consulted continue gentle IV hydration throughout the evening, patient's renal function typically improved with IV fluids overnight. Hepatic encephalopathy: Scheduled lactulose, repeat ammonia in the morning, patient mildly disoriented able to follow commands communicating effectively. Alcoholic cirrhosis of the liver with thrombocytopenia: At baseline, SCDs for DVT prophylaxis given thrombocytopenia continue home medications including lactulose. If patient still in the hospital on Saturday could possibly benefit from diagnostic/therapeutic paracentesis. No GI on-call currently attempts are made to transfer patient to his GI center at [facility] but they declined at their capacity. Abdominal pain/nausea: Continue Rocephin for coverage in case of SBP, as needed pain medications and antiemetics. CT negative for acute findings. Elevated troponin: Suspect demand ischemia will trend troponin if significant elevated will consult cardiology. Hypertension: Obtain and continue home medication. DVT PPX: SCD Code status: Full Discharge Plan: Home Plan to discharge in: 48 Hours - Advance Directives Does patient have a Living Will: Yes Does patient have a Durable POA for Healthcare: Yes - Code Status/Comfort Care Code Status Assessed: Yes (Full code) Critical Care: No Time Spent Managing Pts Care (In Minutes): 55
[2021-06-28] MEDS: INSULIN -REGULAR HUMAN 50 UNIT/0.5 ML ML SQ SCH (23:46)
[2021-06-28] MEDS ORDERED: ONDANSETRON 4 MG/2 ML VIAL IV PRN (23:46)
[2021-06-28] MEDS: LACTULOSE 20 GM/30 ML UCUP PO SCH (23:46)
[2021-06-28] MEDS ORDERED: NA CHLORIDE 0.9% 1,000 ML IV SCH (23:46)
[2021-06-29 01:59] VITALS: BMI 18.1
[2021-06-29 06:19] LABS: Absolute Lymphocytes (CBC) 0.5 K/uL (0.7-4.9); Hematocrit 25.6 % (39.6-49.0); Lymphocytes % 17.9 % (15.3-44.8); MPV 9.1 fL (7.6-11.3); RBC Red Blood Cell Count 2.68 M/uL (4.33-5.43)
[2021-06-29 06:35] LABS: Albumin 1.9 g/dL (3.4-5.0); Bilirubin Total 1.8 mg/dL (0.2-1.0); Potassium 4.8 mmol/L (3.5-5.1)
[2021-06-29 06:36] LABS: Protime INR 2.24
[2021-06-29] MEDS: INSULIN -REGULAR HUMAN 50 UNIT/0.5 ML ML SQ SCH ×4 (07:30→21:00)
[2021-06-29] MEDS: LACTULOSE 20 GM/30 ML UCUP PO SCH ×3 (09:00→22:05)
[2021-06-29] MEDS: CEFTRIAXONE 1,000 MG in NA CHLORIDE 0.9% 50 ML IVPB SCH (09:02)
[2021-06-29 10:17] LABS: Anisocytosis SLIGHT; Blood Morphology Comment NOTED (NOT SEEN); Hypochromasia 1+; Platelet Estimate DECR; White Blood Cell Scan OK (OK)
--- NOTE | 2021-06-29 11:40 | P.CNS ---
Date of Consult: 06/29/21 Reason for Consult: RACHEL Requesting Physician: Oly Alvarez Primary Care Provider: Dr. Martin Chief Complaint: Acute renal failure History of Present Illness: 76-year-old male with history of alcoholic cirrhosis of the liver, CKD 3, diabetes type 2insulin-dependent and hypertension presents emergency department for abdominal discomfort, nausea. Patient was recently seen here and admitted on the 16 of this month for similar complaint had paracentesis at that time and symptoms had improved and he was discharged. Patient reports last 2 days had increasing abdominal pain as well as nausea he is not able to tell me if he had any vomiting or diarrhea his labs in the emergency department were significant for acute kidney injury superimposed on CKD 3 currently his creatinine is 2.2 GFR 29 BUN 45 potassium 5.3 lactic acid 2.3 troponin high- sensitivity 82.3 ammonia 58 procalcitonin 0.6 INR is 2.04 white blood cell count 5.9. Given acute kidney injury, abdominal pain and nausea ED provider wishes to admit for further evaluation and management. Initially ED provider discussed case with patient's attending physician Dr. Martin who will be out of town, patient was attempted to be transferred to [facility] where he gets his GI care but they are at capacity. 12:52 Chief complaint: EMS states: [facility] CALLED PCP AND ADVISED THAT HE WAS NOT ll1 "FEELING WELL" AND THAT HE WAS NOT EATING. PCP WANTED PT EVALUATED Poor historian. Case reviewed at the bedside with the step-daughter. Allergies vancomycin Allergy (Verified 06/17/21 04:00) Itching/Hives/Rash Home medications list reviewed: Yes Home Medications: Ezetimibe [Zetia*] 10 mg PO DAILY 05/23/18 Magnesium Oxide [Mag 0X*] 400 mg PO BID 05/23/18 Furosemide [Lasix*] 20 mg PO DAILY 06/26/18 Simvastatin 40 mg PO BEDTIME 06/26/18 Aspirin 81 mg PO DAILY 06/09/19 Carvedilol [Coreg] 12.5 mg PO BID 06/09/19 Glucerna Shake [Glucerna*] 237 ml PO TID #90 can 06/11/19 Amlodipine Besylate [Norvasc] 10 mg PO DAILY #30 tablet 08/30/19 Folic Acid 1 mg PO DAILY #90 tablet 12/01/20 Insulin Detemir [Levemir] 5 units SQ BEDTIME #1 bottle 12/01/20 Pantoprazole Sodium [Protonix] 40 mg PO DAILY #30 tablet. 12/01/20 Sucralfate [Carafate*] 1 gm PO ACHS #90 tab 12/01/20 Thiamine HCl [Vitamin B-1*] 100 mg PO DAILY #90 tablet 12/01/20 Ondansetron [Zofran] 4 mg PO Q6H PRN #10 tab 05/30/21 - Past Medical/Surgical History Diabetic: Yes -: CAD s/p Stent/ CABG -: DM -: HTN -: CAD -: Alcoholic cirrhosis of the liver -: CKD 3/ Dr. Frazier -: CABG -: Laminectomy -: Back sx -: Skin cancer sx -: hemorrhoidectomy Psychosocial/ Personal History: Patient lives at home with his debilitated - Family History Father Medical History: Heart disease Mother Medical History: Heart disease Notes: [place] - Social History Smoking Status: Unknown if ever smoked Alcohol use: No CD- Drugs: No Caffeine use: Yes Place of Residence: Home Review of Systems 10-point ROS is otherwise unremarkable General: Weakness, Malaise Gastrointestinal: Abdominal Pain Neurological: Weakness Physical Examination Temp Pulse Resp BP Pulse Ox 97.3 F 77 20 125/56 L 99 06/29/21 08:00 06/29/21 08:00 06/29/21 08:00 06/29/21 08:00 06/29/21 08:00 General: Cooperative, Cachectic HEENT: Atraumatic Neck: Supple Respiratory: Normal air movement Cardiovascular: No edema, Regular rate/rhythm Gastrointestinal: No guarding, Distended Musculoskeletal: No clubbing Integumentary: No rashes, No cyanosis Neurological: Normal speech Laboratory Data (last 24 hrs) 06/28/21 13:25: PT 22.8 H, INR 2.04 06/28/21 13:25: WBC 5.9 D, Hgb 9.4 L, Hct 27.2 L, Plt Count 80 L 06/28/21 13:25: Sodium 135 L, Potassium 5.3 H, BUN 45 H, Creatinine 2.20 H D, Glucose 122 H, Magnesium 2.2, Total Bilirubin 2.3 H, AST 54 H, ALT 32, Alkaline Phosphatase 223 H, Lipase 80 Imagings Data: EXAM DESCRIPTION: Rudy Single View06/28/2021 2:15 pm CLINICAL HISTORY: Abdominal pain COMPARISON: 2020 FINDINGS: Small to moderate right pleural effusion with basilar atelectasis Left lung appears clear. Moderate hiatal hernia. Postsurgical changes involve chest. The heart is normal size. EXAM DESCRIPTION: CT - Abdomen Pelvis Wo Contrast - 06/28/2021 3:03 pm CLINICAL HISTORY: Abdominal pain COMPARISON: June 17, 2021 TECHNIQUE: Computed axial tomography of the abdomen and pelvis was obtained. IV and oral contrast were not requested. All CT scans are performed using dose optimization technique as appropriate and may include automated exposure control or mA/KV adjustment according to patient size. FINDINGS: The evaluation of solid organs, vessels and bowel is limited secondary to the lack of contrast administration. A small to moderate right pleural effusion. Cirrhotic liver. Mild splenomegaly. Moderate hiatal hernia. Upper abdomen and paraesophageal varices. Atrophic pancreas. Adrenals and kidneys grossly normal. A right inguinal hernia contains ascites. Moderate amount of ascites. Postsurgical changes involve the spine. Cholelithiasis. No evidence of diverticulitis. Normal appendix IMPRESSION: Cirrhosis with moderate pleural effusion Small to moderate right pleural. Conclusions/Impression: RACHEL likely due to hypovolemia CKD III -No NSAIDs -Gentle IVF; Change to LR Hyperkalemia -Low potassium diet Acidosis -Change IVF to LR Hypocalcemia -Start Vitamin D Severe malnutrition Hypoalbuminemia -Encourage nutrition Anemia in chronic illness Pancytopenia -Monitor CBC Alcoholic liver cirrhosis with ascites Hepatic encephalopathy -Continue Lactulose Thank you kindly for the consultation.
[2021-06-29] MEDS ORDERED: Ringers Lactate 1,000 ML IV SCH (12:00)
--- NOTE | 2021-06-29 14:29 | P.PN ---
Subjective Date of Service: 06/29/21 Primary Care Provider: Dr. Martin Chief Complaint: Acute renal failure Subjective: No new changes, No C/O voiced (More awake and conversant Daughter at bedside discussed with) Physical Examination - Vital Signs Temperature: 97.3 F Blood Pressure: 125/56 Pulse: 77 Respirations: 20 Pulse Ox (%): 99 - Studies Laboratory Data (last 24 hrs) 06/28/21 13:25: WBC 5.9 D, Hgb 9.4 L, Hct 27.2 L, Plt Count 80 L Assessment And Plan Discharge Plan: Home Physician Review: Patient Assessed, Agree with Above Assessment and Plan Physician Review Additional Text: - Physical Exam General: Alert, In no apparent distress, Oriented x3 HEENT: Atraumatic, PERRLA, Mucous membr. moist/pink, EOMI, Sclerae nonicteric Neck: Supple, 2+ carotid pulse no bruit, No LAD, Without JVD or thyroid abnormality Respiratory: Clear to auscultation bilaterally, Normal air movement Cardiovascular: Regular rate/rhythm, Normal S1 S2 Capillary refill: <2 Seconds Gastrointestinal: Normal bowel sounds, No tenderness, moderate ascites by shifting dullness Musculoskeletal: No tenderness Integumentary: No rashes Neurological: Normal speech, Normal strength at 5/5 x4 extr, Normal tone, Normal affect Assessment: Acute kidney injurylikely due to hepatorenal syndrome type II with superimposed prerenal azotemia CKD stage III Hepatic encephalopathymild with hyperammonemia Alcoholic liver cirrhosis Recurrent ascites Chronic thrombocytopeniadue to cirrhosis Elevated troponinmild, trending down HTNcontrolled Moderate right pleural effusion/ascites Plan Creatinine improving to 1.8 We DC IV fluid now since hepatorenal syndrome high risk of worsening fluid overload Can dose albumin as needed to optimize intravascular volume We will resume Lasix in a.m. if still improving creatinine Continue to optimize blood pressure Continue started lactulose Follow daily ammonia level, Monitor p.o. intake, may need add Remeron Continue SCDs for DVT prophylaxis since low platelet Insulin sliding scale with Accu-Cheks 06/29/21 14:32 Time Spent Managing PTS Care (In Minutes): 35
[2021-06-29] MEDS ORDERED: ALBUMIN HUMAN 25% 200 ML IV ONE (15:00)
[2021-06-29] MEDS: SUCRALFATE 1 GM TABLET PO SCH ×2 (17:21→22:05)
[2021-06-29] MEDS: MAGNESIUM OXIDE 400 MG TAB PO SCH (21:00)
[2021-06-29] MEDS: GLUCERNA SHAKE 237 ML CAN PO SCH (22:05)
[2021-06-30 04:48] VITALS: O2SAT 97
[2021-06-30 06:32] VITALS: TEMP 97.8
[2021-06-30 06:38] LABS: Protime INR 2.29
[2021-06-30 06:45] LABS: Absolute Lymphocytes (CBC) 0.6 K/uL (0.7-4.9); Hematocrit 29.7 % (39.6-49.0); Lymphocytes % 16.3 % (15.3-44.8); MPV 8.6 fL (7.6-11.3); RBC Red Blood Cell Count 3.12 M/uL (4.33-5.43)
[2021-06-30 06:53] LABS: Albumin 2.6 g/dL (3.4-5.0); Bilirubin Total 2.4 mg/dL (0.2-1.0); Potassium 4.1 mmol/L (3.5-5.1); Protein, Total 7.2 g/dL (6.4-8.2)
[2021-06-30] MEDS: INSULIN -REGULAR HUMAN 50 UNIT/0.5 ML ML SQ SCH (07:30)
--- NOTE | 2021-06-30 07:49 | EKG ---
Test Date: 2021-06-28 Test Time: 13:34:30 Molasses Coloring Operator: DESI MEASUREMENT RESULTS: Intervals: Rate: 70 DC: 256 QRSD: 138 QT: 442 QTc: 477 Brewster: P: DC: 256 QRS: -61 T: 43 INTERPRETIVE STATEMENTS: Sinus rhythm with 1st degree AV block with premature atrial complexes Right bundle branch block Left anterior fascicular block Bifascicular block Septal infarct, age undetermined Abnormal ECG Compared to ECG 06/21/2021 14:35:23 No significant changes Electronically Signed On 06-30-21 07:42:54 CDT by Nba Dumont
[2021-06-30] MEDS: MAGNESIUM OXIDE 400 MG TAB PO SCH (08:25)
[2021-06-30] MEDS: CEFTRIAXONE 1,000 MG in NA CHLORIDE 0.9% 50 ML IVPB SCH (08:25)
[2021-06-30] MEDS: SUCRALFATE 1 GM TABLET PO SCH (08:25)
[2021-06-30] MEDS: LACTULOSE 20 GM/30 ML UCUP PO SCH (08:26)
[2021-06-30] MEDS: GLUCERNA SHAKE 237 ML CAN PO SCH (08:26)
[2021-06-30] MEDS ORDERED: VITAMIN D 5,000 UNIT CAP PO SCH (09:00)
[2021-06-30] MEDS ORDERED: ASPIRIN 81 MG CHEWABLE TABLET PO SCH (09:00)
[2021-06-30] MEDS ORDERED: THIAMINE HCL 100 MG TABLET PO SCH (09:00)
[2021-06-30] MEDS ORDERED: PANTOPRAZOLE 40MG TABLET PO SCH (09:00)
[2021-06-30] MEDS ORDERED: FOLIC ACID 1 MG TABLET PO SCH (09:00)
[2021-06-30 09:33] VITALS: BP 121/58
[2021-06-30] MEDS ORDERED: HYDROCODONE/APAP 7.5/325 MG TAB PO PRN (10:25)
--- NOTE | 2021-06-30 11:19 | P.DS ---
Admission Date: 06/28/21 Discharge Date: 06/30/21 Primary Care Provider: Dr. Martin Disposition: ROUTINE DISCHARGE Discharge Condition: FAIR Reason for Admission: Acute renal failure Brief History of Present Illness: History of Present Illness: 76-year-old male with history of alcoholic cirrhosis of the liver, CKD 3, diabetes type 2insulin-dependent and hypertension presents emergency department for abdominal discomfort, nausea. Patient was recently seen here and admitted on the 16 of this month for similar complaint had paracentesis at that time and symptoms had improved and he was discharged. Patient reports last 2 days had increasing abdominal pain as well as nausea he is not able to tell me if he had any vomiting or diarrhea his labs in the emergency department were significant for acute kidney injury superimposed on CKD 3 currently his creatinine is 2.2 GFR 29 BUN 45 potassium 5.3 lactic acid 2.3 troponin high- sensitivity 82.3 ammonia 58 procalcitonin 0.6 INR is 2.04 white blood cell count 5.9. Given acute kidney injury, abdominal pain and nausea ED provider wishes to admit for further evaluation and management. Initially ED provider discussed case with patient's attending physician Dr. Martin who will be out of town, patient was attempted to be transferred to [facility] where he gets his GI care but they are at capacity. Home Medications: Ezetimibe [Zetia*] 10 mg PO DAILY 05/23/18 Magnesium Oxide [Mag 0X*] 400 mg PO BID 05/23/18 Furosemide [Lasix*] 20 mg PO DAILY 06/26/18 Simvastatin 40 mg PO BEDTIME 06/26/18 Aspirin 81 mg PO DAILY 06/09/19 Carvedilol [Coreg] 12.5 mg PO BID 06/09/19 Glucerna Shake [Glucerna*] 237 ml PO TID #90 can 06/11/19 Amlodipine Besylate [Norvasc] 10 mg PO DAILY #30 tablet 08/30/19 Folic Acid 1 mg PO DAILY #90 tablet 12/01/20 Insulin Detemir [Levemir] 5 units SQ BEDTIME #1 bottle 12/01/20 Pantoprazole Sodium [Protonix] 40 mg PO DAILY #30 tablet. 12/01/20 Sucralfate [Carafate*] 1 gm PO ACHS #90 tab 12/01/20 Thiamine HCl [Vitamin B-1*] 100 mg PO DAILY #90 tablet 12/01/20 Ondansetron [Zofran] 4 mg PO Q6H PRN #10 tab 05/30/21 Hospital Course: Hospital course Patient admitted for hepatic encephalopathy with noted elevated ammonia of 83. He was restarted on lactulose. His mental status subsequently improved further as he had intermittent drowsiness but he became progressively more weak. He continued to have his chronic low back pain and was restarted on his pain regimen. His creatinine improved with albumin and gentle IV fluid to 1.5. He is low-dose Lasix has been restarted. Patient was counseled to adhere to his lactulose upon discharge as elevated ammonia likely was causing patient decre ased p.o. intake. - Physical Exam General: Alert, In no apparent distress, Oriented x3 HEENT: Atraumatic, PERRLA, Mucous membr. moist/pink, EOMI, Sclerae nonicteric Neck: Supple, 2+ carotid pulse no bruit, No LAD, Without JVD or thyroid abnormality Respiratory: Clear to auscultation bilaterally, Normal air movement Cardiovascular: Regular rate/rhythm, Normal S1 S2 Capillary refill: <2 Seconds Gastrointestinal: Normal bowel sounds, No tenderness, Ascites Musculoskeletal: Mild tenderness over lower lumbar spine, Integumentary: No rashes Neurological: Normal speech, Normal strength at 5/5 x4 extr, Normal tone, Normal affect Acute kidney injurylikely due to hepatorenal syndrome type II with superimposed prerenal azotemia CKD stage III Hepatic encephalopathymild with hyperammonemia Alcoholic liver cirrhosis Recurrent ascites Chronic thrombocytopeniadue to cirrhosis Elevated troponinmild, trending down HTNcontrolled Moderate right pleural effusion/ascites Vital Signs/Physical Exam: Temp Pulse Resp BP Pulse Ox 97.8 F 86 18 121/58 L 92 06/30/21 08:00 06/30/21 08:00 06/30/21 08:00 06/30/21 08:00 06/30/21 08:00 Laboratory Data at Discharge: WBC 3.8 K/uL (4.3-10.9) L D 06/30/21 06:13 Hgb 10.3 g/dL (13.6-17.9) L 06/30/21 06:13 Hct 29.7 % (39.6-49.0) L D 06/30/21 06:13 Plt Count 73 K/uL (152-406) L 06/30/21 06:13 PT 25.6 SECONDS (9.5-12.5) H 06/30/21 06:13 INR 2.29 06/30/21 06:13 Sodium 139 mmol/L (136-145) 06/30/21 06:13 Potassium 4.1 mmol/L (3.5-5.1) 06/30/21 06:13 BUN 35 mg/dL (7-18) H 06/30/21 06:13 Creatinine 1.57 mg/dL (0.55-1.3) H 06/30/21 06:13 Glucose 170 mg/dL (74-106) H 06/30/21 06:13 Magnesium 2.2 mg/dL (1.8-2.4) 06/28/21 13:25 Total Bilirubin 2.4 mg/dL (0.2-1.0) H 06/30/21 06:13 AST 46 U/L (15-37) H 06/30/21 06:13 ALT 31 U/L (12-78) 06/30/21 06:13 Alkaline Phosphatase 207 U/L (45-117) H 06/30/21 06:13 Lipase 80 U/L (73-393) 06/28/21 13:25 Home Medications: Ezetimibe [Zetia*] 10 mg PO DAILY 05/23/18 Magnesium Oxide [Mag 0X*] 400 mg PO BID 05/23/18 Furosemide [Lasix*] 20 mg PO DAILY 06/26/18 Aspirin 81 mg PO DAILY 06/09/19 Carvedilol [Coreg] 12.5 mg PO BID 06/09/19 Glucerna Shake [Glucerna*] 237 ml PO TID #90 can 06/11/19 Folic Acid 1 mg PO DAILY #90 tablet 12/01/20 Insulin Detemir [Levemir] 5 units SQ BEDTIME #1 bottle 12/01/20 Pantoprazole Sodium [Protonix] 40 mg PO DAILY #30 tablet. 12/01/20 Sucralfate [Carafate*] 1 gm PO ACHS #90 tab 12/01/20 Thiamine HCl [Vitamin B-1*] 100 mg PO DAILY #90 tablet 12/01/20 Ondansetron [Zofran (Odt)*] 4 mg PO Q6H PRN #10 tab 05/30/21 Hydrocodone 7.5/APAP 325 [Gray 7.5/325 mg*] 1 tab PO PRN PRN 06/29/21 Lactulose [Cephulac*] 30 ml PO TID #900 ucup 06/30/21 New Medications: Lactulose [Cephulac*] 30 ml PO TID #900 ucup Diet: ADA Activity: Ad cristiano Followup: NONE,NONE [Primary Care Provider] - Time spent managing pt's care (in minutes): 35
--- NOTE | 2021-06-30 17:49 | P.PN ---
Date of Service: 06/30/21 Vital Signs Temp Pulse Resp BP Pulse Ox 97.8 F 86 18 121/58 L 92 06/30/21 08:00 06/30/21 08:00 06/30/21 08:00 06/30/21 08:00 06/30/21 08:00 Microbiology Results 06/28/21 13:40 Blood - Blood Aerobic Blood Culture - Preliminary No growth in 24 hours. 06/28/21 13:40 Blood - Blood Anaerobic Blood Culture - Preliminary No growth in 24 hours. 06/28/21 13:25 Blood - Blood Aerobic Blood Culture - Preliminary No growth in 24 hours. 06/28/21 13:25 Blood - Blood Anaerobic Blood Culture - Preliminary No growth in 24 hours. Assessment/ Plan: Nephrology No dyspnea No chest pain Weakness and fatigue Feeling better No acute events overnight Vitals, medications, blood work and imaging reviewed in the chart. General: Cooperative, Cachectic HEENT: Atraumatic Neck: Supple Respiratory: Normal air movement Cardiovascular: No edema, Regular rate/rhythm Gastrointestinal: No guarding, Distended Musculoskeletal: No clubbing Integumentary: No rashes, No cyanosis Neurological: Normal speech Laboratory Data (last 24 hrs) 06/28/21 13:25: PT 22.8 H, INR 2.04 06/28/21 13:25: WBC 5.9 D, Hgb 9.4 L, Hct 27.2 L, Plt Count 80 L 06/28/21 13:25: Sodium 135 L, Potassium 5.3 H, BUN 45 H, Creatinine 2.20 H D, Glucose 122 H, Magnesium 2.2, Total Bilirubin 2.3 H, AST 54 H, ALT 32, Alkaline Phosphatase 223 H, Lipase 80 Imagings Data: EXAM DESCRIPTION: Kumart Single View06/28/2021 2:15 pm CLINICAL HISTORY: Abdominal pain COMPARISON: 2020 FINDINGS: Small to moderate right pleural effusion with basilar atelectasis Left lung appears clear. Moderate hiatal hernia. Postsurgical changes involve chest. The heart is normal size. EXAM DESCRIPTION: CT - Abdomen Pelvis Wo Contrast - 06/28/2021 3:03 pm CLINICAL HISTORY: Abdominal pain COMPARISON: June 17, 2021 TECHNIQUE: Computed axial tomography of the abdomen and pelvis was obtained. IV and oral contrast were not requested. All CT scans are performed using dose optimization technique as appropriate and may include automated exposure control or mA/KV adjustment according to patient size. FINDINGS: The evaluation of solid organs, vessels and bowel is limited secondary to the lack of contrast administration. A small to moderate right pleural effusion. Cirrhotic liver. Mild splenomegaly. Moderate hiatal hernia. Upper abdomen and paraesophageal varices. Atrophic pancreas. Adrenals and kidneys grossly normal. A right inguinal hernia contains ascites. Moderate amount of ascites. Post- surgical changes involve the spine. Cholelithiasis. No evidence of diverticulitis. Normal appendix IMPRESSION: Cirrhosis with moderate pleural effusion Small to moderate right pleural. Conclusions/Impression: RACHEL likely due to hypovolemia CKD III -No NSAIDs Hyperkalemia -Low potassium diet Acidosis -Consider oral bicarb Hypocalcemia -Continue Vitamin D Severe malnutrition Hypoalbuminemia -Encourage nutrition Anemia in chronic illness Pancytopenia -Monitor CBC Alcoholic liver cirrhosis with ascites Hepatic encephalopathy -Continue Lactulose Case reviewed with Dr. Alvarez
== END 2021-06-30 12:00 | disposition home or self-care (01) | DRG 441 ==
LOC: ER 12:51 → ERHOLD 19:13 → 2ND 23:03
PROVIDERS: ADMIT Internal Medicine; ATTEND Internal Medicine
DX: K76.7 Hepatorenal syndrome (principal); E43 Unspecified severe protein-calorie malnutrition; N17.9 Acute kidney failure, unspecified; J90 Pleural effusion, not elsewhere classified; Z68.1 Body mass index [BMI] 19.9 or less, adult; D61.818 Other pancytopenia; K70.31 Alcoholic cirrhosis of liver with ascites; I12.9 Hypertensive chronic kidney disease with stage 1 through stage 4 chronic kidney disease, or unspecified chronic kidney disease; N18.30 Chronic kidney disease, stage 3 unspecified; R79.89 Other specified abnormal findings of blood chemistry; K72.90 Hepatic failure, unspecified without coma; D69.6 Thrombocytopenia, unspecified; R77.8 Other specified abnormalities of plasma proteins; E11.22 Type 2 diabetes mellitus with diabetic chronic kidney disease; Z79.4 Long term (current) use of insulin; I25.10 Atherosclerotic heart disease of native coronary artery without angina pectoris; Z95.1 Presence of aortocoronary bypass graft; E87.5 Hyperkalemia; E83.51 Hypocalcemia; M54.50 Low back pain, unspecified; Z20.822 Contact with and (suspected) exposure to COVID-19
CPT/HCPCS: 36415; 70450; 71045; 74176; 80048; 80053; 80076; 81003; 81015; 82140; 82947; 83605; 83690; 83735; 83880; 84145; 84484; 85025; 85610; 87040; 93005; 96365; 96366; 99281; 99285; J2405; J7030; J7120; P9047; U0003

== ENCOUNTER 2021-07-04 08:21 | Day surgery (SDC) | payer OTHER, MEDICARE ==
--- NOTE | 2021-07-04 10:03 | RAD REPORT ---
EXAM DESCRIPTION: US - Paracentesis Proc Guidance - 07/04/2021 9:33 am CLINICAL HISTORY: ASCITES Ascites COMPARISON: Paracentesis Proc Guidance dated 06/20/2021 FINDINGS: Informed consent was obtained and time-out was performed. Patient's abdomen was prepped and draped in the usual sterile fashion. 1% lidocaine was used for loca l anesthetic purposes. A small skin incision was made in the right lower quadrant region. A paracentesis catheter was guided into the peroneal cavity under sonographic guidance. A large volume paracentesis was performed. The patient tolerated the procedure well. Patient was administered IV albumin per protocol following the procedure. IMPRESSION: Successful ultrasound-guided paracentesis.
[2021-07-04 10:19] VITALS: BMI 20.2
[2021-07-04 10:21] VITALS: O2SAT 100
[2021-07-04] MEDS ORDERED: ALBUMIN HUMAN 25% 100 ML IV ONE (10:45)
[2021-07-04] MEDS ORDERED: ALBUMIN HUMAN 25% 200 ML IV ONE (11:14)
[2021-07-04 17:13] VITALS: BP 130/55; TEMP 97.2
== END 2021-07-04 11:57 | disposition home or self-care (01) ==
LOC: DS 08:21
PROVIDERS: ATTEND Family Medicine
DX: R18.8 Other ascites (principal); N17.9 Acute kidney failure, unspecified
CPT/HCPCS: 96365; 49083; P9047 ×2

== ENCOUNTER 2021-07-09 04:19 | Inpatient (IN) | payer OTHER, MEDICARE ==
--- OUTSIDE RECORDS SUMMARY | 2021-07-09 04:24 | XMS REPORT | Continuity of Care Document ---
:1945 Author Organization [facility] t Address [address] [place] [address] Care Team Providers Name Role Phone Pcp, [...] Date S alona MEDICARE PART A \T\ [id number] 2008 B 00:00:[address] 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 [facility] hypogonadi hypogonadi 03-17 Co llege sm sm 00:00: of 00 Medicin e Special Special Disease Active 2016-03 [facility] screening screening 03-17 [place] for [...] Medicin e BPH BPH Disease Active 2012-03 [facility] (benign (benign 03-04 [place] prostatic prostatic 00:00: of hypertroph hypertroph 00 Me dicin y) with y) with e urinary urinary obstructio obstructio n n Erectile Erectile Disease Active 2012-03 [facility] r dysfunctio dysfunctio 03-04 Co llege n n 00:00: of 00 Medicin e History of History of Disease Active 2012-03 N PI:183 nonmelanom nonmelanom 0-21 [id number] a skin a skin 00:00: cancer cancer 00 Allergies, Adverse Reactions, Alerts Allergy Allergy [...] Known DA Active [facility] Allergie 8-29 [place] [facility] 00:[facility]: [facility] 00 dic Hospita l NO KNOWN Drug Active NPI:183 ALLERGIE Class [id number] S Family History Family Member Diagnosis Comments Start Date Stop Date Source Natural father Heart disease [facility] Natural mother Heart disease [facility] Social History Social Habit Start Date Stop Date Quantity Comments Source History of tobacco Cigarette Smoker [facility] use of Medicine Exposure to Not sure NPI:[id number] 1 SARS-CoV-2 (event) History [facility] Alcohol Std Drinks Hospit al History SDOH [facility] Alcohol intake 2021-04-03 2021-04-03 Current drinker NPI:1 [id number] 00:00:00 00:00:00 of alcohol (finding) Alcohol intake 2021-03-27 2021-03-27 .43 /d [facility] 00:00:00 00:00:00 Hospital Cigarettes smoked 2019-09-10 2019-09-10 [facility] current (pack per 00:00:00 00:00:00 Hospita l day) - Reported Cigarette 2019-09-10 2019-09-10 [facility] pack-years 00:00:00 00:00:00 Hospital Tobacco use and 2019-09-10 2019-09-10 Smokeless tobacco Me [facility]odist exposure 00:00:00 00:00:00 non-user Hospital History SDOH 2019-09-10 2019-09-10 3 [facility] Alcohol Frequency 00:00:00 00:00:00 Hospita l Alcohol Comment 2018-01-31 2018-01-31 3 week [facility] 00:00:00 00:00:00 Hospital Sex Ass[birth year] At [birth year] NPI:[id number] 00:00:00 00:00:00 Smoking Status Start Date Stop Date Source Ex-smoker 2019-09-10 00:00:00 2019-09[facility]10 [facility] Medications Ordered Filled Start Stop Current Ordering Indication Dosage Frequency Signature Comments Components Source Medication Medication Date Date Medication? Clinician (SIG) Name Name fluorouraci Yes Apply NPI:183 L (EFUDEX) 1-31 daily to L 131 8781 5 % cream 00:00: ear, face 00 and scalp as tolerated for 3 weeks. fluorouraci Yes Apply NPI:183 L (EFUDEX) 1-31 daily to L 131 8781 5 % cream 00:00: ear, face 00 and scalp as tolerated for 3 weeks. insulin 0 Yes 30U QD Inject 30 Metho di detemir 1-[address] U-100 13:02: under the Hospita (LEVEMIR) 10 skin every l 100 unit/mL morning. injection magnesium 2021-0 Yes 400mg Q.5D Take 400 Met hodi oxide 1-[address] (MAG-OX) 13:02: mouth 2 Hospit a 400 mg 10 (two) l (241.3 mg times a magnesium) day. tablet aspirin 2021-0 Yes 81mg Q.5D Take 81 mg Meth elvia (ECOTRIN) 1-[address] 81 MG 13:02: (two) Hospita enteric 10 times a l coated day. tablet ferrous 2021-0 Yes 325mg QD Take 325 Metho di sulfate 325 1-[address] (65 FE) MG 13:02: mouth Hospit a tablet 10 daily with l breakfast. HYDROcodone 2021-0 Yes [id number] 1{tbl} Q4H Take 1 M ethodi -acetaminop 1-[address] hen (NORCO) 13:02: mouth Hospi ta 7.5-325 mg 10 every 4 l per tablet (four) hours as needed for mild pain or moderate pain .acute pain. (per Prescripti on Drug Monitoring Program, last filled 01/09/2021 , quantity: 56, day supply: 28) insulin 2021-0 Yes Q.[id number] Inject Me thodi ASPART [id number] (NovoLOG) 13:02: 3D skin 3 Hospit a 100 unit/mL 10 (three) l injection times a day with meals. Use per sliding scale bimatoprost 2021-0 Yes 1[drp] QD Administer Methodi (LUMIGAN) [address] 0.01 % 13:02: [...] 10 times a l tablet day. sertraline 2022-0 Yes 100mg QD Take 100 Me thodi (ZOLOFT) 1-[address] 100 MG 13:02: mouth Hospita tablet 10 daily. l bisacodyL No 5mg Q.5D Take 1 Metho di (Dulcolax, 24 02-24 tablet (5 st bisacodyl,) 00:00: 05:59 mg total) Hospita 5 mg EC 00 :00 by mouth 2 l tablet (two) times a day for 30 days. furosemide 2020-03 No 80mg QD Take 2 Meth elvia (Lasix) 40 04-20-[address] mg tablet 00:00: 05:59 (80 [...] for 30 days. metoclopram 2020- No 5mg Q.[id number] Take 1 Methodi gerald 9-10 10-11 [id number] tablet (5 st (Reglan) 5 00:00: 04:59 [...] 2020- No 40mg QD Take 1 Meth eliva (Lasix) 40 09-21 tablet (40 st mg [...] for 30 days. polyethylen 2020- No 17g Q.[id number] Take 17 g Methodi e glycol 08-31 [id number] by mouth [address] (GLYCOLAX) 00:00: 04:59 3D (three) Hos cat 17 00 :00 times a l gram/dose day for 30 powder days. riFAXimin 2020- No [id number] 550mg Q.5D Take 1 Methodi (Xifaxan) 08-[address] 550 mg 00:00: 04:59 (550 mg Hospita tablet 00 :00 total) by l mouth 2 (two) times a day for 30 days. amLODIPine 2020- No [id number] 10mg QD Take 1 Method[facility] (NORVASC) -26 06-26 tablet (10 st 10 mg 00:00: 04:59 mg total) Hospit a tablet 00 :00 by mouth l daily for 30 days. amLODIPine No 10mg QD Take 10 mg Methodi [...] Q.5D Take 1 Me thodi (COREG) 5-25 -[address] 12.5 MG 00:00: 04:59 (12.5 mg Hospi ta tablet 00 :00 total) by l mouth 2 (two) times a day with meals for 30 days. lactulose 2020- No 10g Q.5D Take 15 mL M ethodi 10 gram/15 -25 -25 ([address] mL (15 mL) 00:00: [...] l mouth daily for 30 days. methocarbam 2020-2020- No 500mg Q.[id number] Take 500 Methodi ol 5-20 05-[id number] (ROBAXIN) 20:05: 00:00 3D mouth 3 Hosp mahesh 500 MG 04 :00 (three) l tablet times a day. lisinopriL 2020- No 40mg QD Take 40 mg Method[facility] (PRINIVIL) 5-20 05-[address] 40 mg 20:04: 00:00 daily. Hospita tablet 58 :00 l insulin 2020- No 8U Q.[id number] Inject 8 Methodi lispro 5-20 05-[id number] (HumaLOG) 20:03: 00:00 3D under the Ho spita 100 unit/mL 44 :00 skin 3 l injection (three) times a day before meals. GUAIFENESIN 2020- No 400mg Q.[id number] Take 400 Methodi ORAL 5-20 05-[id number] 20:03: 00:00 3D mouth 3 Hospita 07 :00 (three) l times a day. ezetimibe-s 2020- No 1{tbl} QD Take 1 M ethodi imvastatin 5-20 05-[address] (VYTORIN) 20:03: 00:00 mouth Hospit a 10-40 mg 01 :00 nightly. l per tablet sildenafil Yes [id number] Take by [facility] citrate 06-15 mouth College (VIAGRA) 00:00: daily for of 100 MG 00 HTN and Medicin tablet ED. e testosteron 2020- No [id number] 200 mg/cc, [facility] e cypionate 06-15 1 vial = Col lege (DEPOTESTOT 00:00: 00:00 10 of ERONE 00 :00 ccInject Medicin CYPIONATE) _0.75_ cc e 200 MG/ML IM Q _7_ injection days. silver 2018-03 Yes [id number] Apply to HOSIERY PAIRER I:183 sulfADIAZIN 0-22 area(s) 2 131 8781 E 00:00: (two) (SILVADENE) 00 times 1 % cream daily. silver 2018-03 Yes [id number] Apply to HOSIERY PAIRER I:183 sulfADIAZIN 0-22 area(s) 2 131 8781 E 00:00: (two) (SILVADENE) 00 times 1 % cream daily. simvastatin Yes 40mg QD Take 40 mg Methodi (ZOCOR) 40 4-[address] mg tablet 00:00: nightly. Hosp mahesh 00 l naloxone 2019-0 2021- No .2mg Infuse 0.5 Me thodi (NARCAN) [...] sildenafil 2020- No Take by [facility] citrate 08-27 [facility] (VIAGRA) 00:00: 00:00 daily for of 100 MG 00 :00 HTN and Medicin tablet ED. e anastrozole 2016-03 Yes Take one [facility] (ARIMIDEX) 1-27 per week Colle ge 1 MG tablet 00:00: of 00 Medicin e FENOFIBRATE Yes Take by HOSIERY PAIRER I:183 NANOCRYSTAL 5-25 mouth. [id number] LIZED 08:49: (TRICOR 56 ORAL) EZETIMIBE/S Yes Take by HOSIERY PAIRER I:183 IMVASTATIN 5-25 mouth. [id number] (VYTORIN 08:49: 10-20 ORAL) 56 FENOFIBRATE Yes Take by HOSIERY PAIRER I:183 NANOCRYSTAL 5-25 mouth. [id number] LIZED 08:49: (TRICOR 56 ORAL) EZETIMIBE/S Yes Take by HOSIERY PAIRER I:183 IMVASTATIN 5-25 mouth. [id number] (VYTORIN 08:49: 10-20 ORAL) 56 enalapril Yes 5mg Take 5 mg NPI :183 (VASOTEC) 5 5-25 by mouth 1318 781 mg tablet 08:49: daily. 55 enalapril 2017-0 Yes 5mg Take 5 mg NPI :183 (VASOTEC) 5 5-25 by mouth 1318 781 mg tablet 08:49: daily. 55 fluorouraci Yes Apply to NPI:183 l (EFUDEX) 2-20 area(s) 2 1318 781 5 % cream 00:00: (two) 00 times daily. fluorouraci 2017-0 Yes [id number] Apply to NPI:183 l (EFUDEX) 2-20 area(s) 2 5689 781 5 % cream 00:00: (two) 00 times daily. Vital Signs Vital Name Observation Time Observation Value Comments Source Systolic blood 2020-06-16 00:05:00 133 mm[Hg] [facility] Medicine Diastolic blood 2020-06-16 00:05:00 78 mm[Hg] [facility] Medicine Heart rate 2020-06-16 00:05:00 97 /min [facility] Systolic blood 2021-03-30 17:45:00 158 mm[Hg] [facility] pressure Diastolic blood 2021-03-30 17:45:00 68 mm[Hg] [facility] pressure Heart rate 2021-03-30 17:45:00 79 /min [facility] Body temperature 2021-03-30 17:45:00 36.44 Bianca [facility] Respiratory rate 2021-03-30 17:45:00 20 /min [facility] Oxygen saturation in 2021-03-30 17:45:00 99 /min [facility] Arterial blood by Pulse oximetry Body height 2021-03-27 18:59:[address] [facility] Body weight 2021-03-27 18:59:[address] [facility] BMI 2021-03-27 18:59:00 22.96 kg/m2 [facility] Procedures Procedure Date / Time Performing Clinician Source Performed PROTHROMBIN TIME WITH INR 2021-03-30 18:11:00 [facility] HEMOGLOBIN A1C 2021-03-30 18:11:00 [facility] FIBR[facility]EN 2021-03-30 18:11:00 Krissy [facility] COMPREHENSIVE METABOLIC 2021-03-30 18:11:00 Krissy, [facility] PANEL CBC WITH PLATELET AND 2021-03-30 18:11:00 Krissy, [facility] DIFFERENTIAL US ABDOMINAL PARACENTESIS 2021-03-30 18:00:00 [facility], [facility] IMAGING ANAEROBIC CULTURE 2021-03-30 16:59:00 KrissyFormerly [facility] AEROBIC CULTURE 2021-03-30 16:59:00 Karl Oakes spital GRAM STAIN 2021-03-30 16:59:00 Karl Oakes spital ALBUMIN, [facility] FLUID 2021-03-30 16:59:00 [facility] AMYL[facility] LEV[facility], [facility] FLUID 2021-03-30 16:59:00 [facility], [facility] LDH, [facility] FLUID 2021-03-30 16:59:00 Karl Oakes spital PROTEIN, [facility] FLUID 2021-03-30 16:59:00 [facility] CELL COUNT AND 2021-03-30 16:59:00 Karl Oakes spital DIFFERENTIAL, BODY FLUID TRIGLYCERIDES, [facility] FLUID 2021-03-30 16:59:00 [facility]y [facility] CYTOLOGY 2021-03-30 16:59:00 Karl Oakes spital (NON-GYNECOLOGICAL) REQUEST AEROBIC CULTURE 2021-03-23 18:00:00 Karl Oakes spital ANAEROBIC CULTURE 2021-03-23 18:00:00 KrissyFormerly [facility] GRAM STAIN 2021-03-23 18:00:00 Karl Oakes spital CELL COUNT AND 2021-03-23 18:00:00 Krissy Karldar Boyd spital DIFFERENTIAL, BODY FLUID AMYLASE LEVEL, [facility] FLUID 2021-03-23 18:00:00 [facility], [facility] FLUID 2021-03-23 18:00:00 [facility] PROTEIN, [facility] FLUID 2021-03-23 18:00:00 Krissy [facility] LDH, [facility] FLUID 2021-03-23 18:00:00 Krissy Karleileen Boyd spital TRIGLYCERIDES, [facility] FLUID 2021-03-23 18:00:00 [facility] 2021-03-23 18:00:00 Karl Oakes spital (NON-GYNECOLOGICAL) REQUEST US ABDOMINAL PARACENTESIS 2021-03-23 17:47:22 [facility] COMPREHENSIVE METABOLIC 2021-03-16 20:30:00 [facility] PANEL FIBRINOGEN 2021-03-16 20:30:00 Krissy Karldar Boyd spital PROTHROMBIN TIME WITH INR 2021-03-16 20:30:00 [facility] CBC WITH PLATELET AND 2021-03-16 20:30:00 [facility] DIFFERENTIAL US ABDOMINAL PARACENTESIS 2021-03-16 17:40:00 [facility] AEROBIC CULTURE 2021-03-16 17:15:00 Karl Oakes spital GRAM STAIN 2021-03-16 17:15:00 Krissy [facility] Herberth Boyd spital ANAEROBIC CULTURE 2021-03-16 17:15:00 KrissyFormerly [facility] CELL COUNT AND 2021-03-16 17:15:00 Karl Oakes spital DIFFERENTIAL, BODY FLUID ALBUMIN, [facility] FLUID 2021-03-16 17:15:00 [facility] AMYLASE LEVEL, [facility] FLUID 2021-03-16 17:15:00 [facility] LDH, MISC FLUID 2021-03-16 17:15:00 Krissy [facility] Herberth Boyd spital PROTEIN, [facility] FLUID 2021-03-16 17:15:00 [facility] TRIGLYCERIDES, MISC FLUID 2021-03-16 17:15:00 [facility]Y 2021-03-16 17:15:00 Francisco Oakesshdar Boyd spital (NON-GYNECOLOGICAL) REQUEST US ABDOMINAL PARACENTESIS 2021-03-09 20:00:00 [facility] IMAGING AEROBIC CULTURE 2021-03-09 19:50:00 Karl Oakes spital ANAEROBIC CULTURE 2021-03-09 19:50:00 KrissyFormerly [facility] FUNGUS CULTURE 2021-03-09 19:50:00 Karl Oakes spital AFB CULTURE 2021-03-09 19:50:00 Karl Oakes spital FUNGUS SMEAR 2021-03-09 19:50:00 Karl Oakes spital AFB STAIN 2021-03-09 19:50:00 Karl Oakes spital ALBUMIN, [facility] FLUID 2021-03-09 19:50:00 [facility] AMYLASE LEVEL, [facility] FLUID 2021-03-09 19:50:00 [facility] LDH, [facility] FLUID 2021-03-09 19:50:00 Karl Oakes spital PROTEIN, [facility] FLUID 2021-03-09 19:50:00 [facility] TRIGLYCERIDES, [facility] FLUID 2021-03-09 19:50:00 [facility] CELL COUNT AND 2021-03-09 19:50:00 Karl Oakes spital DIFFERENTIAL, BODY FLUID CYTOLOGY 2021-03-09 19:50:00 Karl Oakes spital (NON-GYNECOLOGICAL) REQUEST US ABDOMINAL PARACENTESIS 2021-02-23 23:13:56 [facility] IMAGING ANAEROBIC CULTURE 2021-02-23 22:40:00 KrissyFormerly [facility] AEROBIC CULTURE 2021-02-23 22:40:00 Karl Oakes spital [employer] CULTURE 2021-02-23 22:40:00 Karl Oakes spital FUNGUS CULTURE 2021-02-23 22:40:00 Karl Oakes spital FUNGUS SMEAR 2021-02-23 22:40:00 Karl Oakes [employer] STAIN 2021-02-23 22:40:00 Karl Oakes spital ALBUMIN, MISC FLUID 2021-02-23 22:40:00 Krissy [facility] AMYLASE LEVEL, [facility] FLUID 2021-02-23 22:40:00 [facility] LDH, [facility] FLUID 2021-02-23 22:40:00 Karl Oakes spital PROTEIN, [facility] FLUID 2021-02-23 22:40:00 Krissy [facility] CELL COUNT AND 2021-02-23 22:40:00 Karl Oakes DIFFERENTIAL, BODY FLUID TRIGLYCERIDES, [facility] FLUID 2021-02-23 22:40:00 [facility] CYTOLOGY 2021-02-23 22:40:00 Karl Oakes (NON-GYNECOLOGICAL) REQUEST POTASSIUM LEVEL 2021-02-23 21:40:[address] [facility] POC GLUCOSE 2021-02-23 21:40:00 Karl Oakes spital BASIC METABOLIC PANEL 2021-02-23 19:20:00 Aram [facility] Mora ESTIMATED GFR 2021-02-23 19:20:00 [facility] PROTHROMBIN TIME WITH INR 2021-02-17 19:11:00 [facility] FIBRINOGEN 2021-02-17 19:11:00 Karl Oakes spital COMPREHENSIVE METABOLIC 2021-02-17 19:11:00 [facility] PANEL CBC WITH PLATELET AND 2021-02-17 19:11:00 [facility] US ABDOMINAL PARACENTESIS 2021-02-15 21:00:00 Breezy [facility] IMAGING ANAEROBIC CULTURE 2021-02-15 20:35:[address] [facility]ER[facility] 2021-02-15 20:35:00 Rupinder Tijerina spital GRAM STAIN 2021-02-15 20:35:00 Rupinder Tijerina ALBUMIN, MISC FLUID 2021-02-15 20:35:00 [facility] TRIGLYCERIDES, MISC FLUID 2021-02-15 20:35:00 [facility], [facility] FLUID 2021-02-15 20:35:00 [facility] CELL COUNT AND 2021-02-15 20:35:00 Rupinder Tijerina spital DIFFERENTIAL, BODY FLUID CYTOLOGY 2021-02-15 20:35:00 Rupinder Tijerina (NON-GYNECOLOGICAL) REQUEST POC GLUCOSE 2021-02-01 20:04:00 Ty Basurto spital US ABDOMINAL PARACENTESIS 2021-02-01 17:30:00 [facility] IMAGING AEROBIC CULTURE 2021-02-01 17:00:00 [facility] ANAEROBIC CULTURE 2021-02-01 17:00:00 [facility] GRAM STAIN 2021-02-01 17:00:00 Herberth Awad carrie Marcello R. CELL COUNT AND 2021-02-01 17:00:00 [facility] DIFFERENTIAL, BODY FLUID PROTEIN, [facility] FLUID 2021-02-01 17:00:00 [facility] LDH, MIS FLUID 2021-02-01 17:00:00 [facility]IN, [facility] 2021-02-01 17:00:00 [facility] PH, MISC FLUID 2021-02-01 17:00:00 [facility] GLUCOSE LEVEL, [facility] FLUID 2021-02-01 17:00:00 [facility] AMYLASE LEVEL, MISC FLUID 2021-02-01 17:00:00 [facility] Marcello R. POC GLUCOSE 2021-02-01 15:25:00 Ty Basurto spital COMPREHENSIVE METABOLIC 2021-02-01 12:30:00 Ronda [facility] PANEL ESTIMATED GFR 2021-02-01 12:30:00 Ty Basurto spital HC COMPLETE BLD COUNT 2021-02-01 10:31:00 [facility] W/AUTO DIFF PHOSPHORUS LEVEL 2021-02-01 10:31:00 [facility] MAGNESIUM LEVEL 2021-02-01 10:31:00 [facility] COMPREHENSIVE METABOLIC 2021-02-01 10:31:00 [facility] PANEL ESTIMATED GFR 2021-02-01 10:31:00 [facility] POC GLUCOSE 2021-02-01 04:07:00 Ty Basurto spital ECG 12-LEAD 2021-02-01 03:51:51 [facility] LIPID PANEL 2021-02-01 03:48:00 [facility] HEMOGLOBIN A1C 2021-02-01 03:48:00 [facility] B NATRIURETIC PEPTIDE 2021-02-01 03:48:00 [facility] COVID-19 QUALITATIVE 2021-01-31 23:23:00 [facility]PCR Marcello REma POC GLUCOSE 2021-01-31 21:14:00 [facility] marthatal Marcello R. XR CHEST 1 VW PORTABLE 2021-01-31 20:41:00 Reba Whelan [facility] PROTHROMBIN TIME WITH INR 2021-01-31 20:14:00 Reba Whelan [facility] PARTIAL THROMBOPLASTIN 2021-01-31 20:14:00 Reba Whelan [facility] TIME (PTT) OR CRITICAL CARE, E/M 2021-01-31 20:06:18 [facility] MINUTES Marcello León HC COMPLETE BLD COUNT 2021-01-31 18:50:00 Shana Mendoza [facility] W/AUTO DIFF COMPREHENSIVE METABOLIC 2021-01-31 18:50:00 [facility] PANEL ESTIMATED GFR 2021-01-31 18:50:00 MendozaShana villegas [facility] PARTIAL THROMBOPLASTIN 2021-01-25 18:32:00 [facility] TIME (PTT) PROTHROMBIN TIME WITH INR 2021-01-25 18:32:00 [facility] FIBRINOGEN 2021-01-25 18:32:00 [facility] Ho spital COMPREHENSIVE METABOLIC 2021-01-25 18:32:00 [facility] PANEL HC COMPLETE BLD COUNT 2021-01-25 18:32:00 [facility] W/AUTO DIFF ESTIMATED GFR 2021-01-25 18:32:00 Breezy [facility] Herberth Boyd spital AEROBIC CULTURE 2021-01-05 19:10:00 Krissy [facility] spital ANAEROBIC CULTURE 2021-01-05 19:10:00 Krissy, [facility] US ABDOMINAL PARACENTESIS 2021-01-05 18:31:30 [facility] IM[facility]ING GRAM STAIN 2021-01-05 18:10:00 Krissy Karldar Boyd spital AMYLASE LEVEL, [facility] FLUID 2021-01-05 18:10:00 [facility] ALBUMIN, [facility] FLUID 2021-01-05 18:10:00 Krissy [facility] PROTEIN, MISC FLUID 2021-01-05 18:10:00 [facility] LDH, MISC FLUID 2021-01-05 18:10:00 Krissy [facility] spital TRIGLYCERIDES, MISC FLUID 2021-01-05 18:10:00 [facility] CELL COUNT AND 2021-01-05 18:10:00 Karl Oakes spital DIFFERENTIAL, BODY FLUID CYTOLOGY 2021-01-05 18:10:00 Karl Oakes spital (NON-GYNECOLOGICAL) REQUEST US ABDOMINAL PARACENTESIS 2020-12-22 19:25:20 [facility] IMAGING AMYLASE LEVEL, MISC FLUID 2020-12-22 18:50:00 [facility] ALBUMIN, [facility] FLUID 2020-12-22 18:50:00 [facility] PROTEIN, MISC FLUID 2020-12-22 18:50:00 [facility] LDH, MISC FLUID 2020-12-22 18:50:00 Karl Oakes spital [facility]IDES, [facility] 2020-12-22 18:50:00 [facility] CELL COUNT AND 2020-12-22 18:50:00 Karl Oakes spital DIFFERENTIAL, BODY FLUID CYTOLOGY 2020-12-22 18:50:00 Karl Oakes spital (NON-GYNECOLOGICAL) REQUEST AEROBIC CULTURE 2020-12-22 18:20:00 Karl Oakes spital ANAEROBIC CULTURE 2020-12-22 18:20:00 KrissyFormerly [facility] GRAM STAIN 2020-12-22 18:20:00 Karl Oakes spital US ABDOMINAL PARACENTESIS 2020-12-09 21:00:00 [facility] IMAGING ANAEROBIC CULTURE 2020-12-09 19:42:00 KrissyFormerly [facility] AEROBIC CULTURE 2020-12-09 19:42:00 Karl Oakes spital GRAM STAIN 2020-12-09 19:42:00 Karl Oakes spital CELL COUNT AND 2020-12-09 19:42:00 Karl Oakes spital DIFFERENTIAL, BODY FLUID AMYLASE LEVEL, [facility] FLUID 2020-12-09 19:42:00 [facility] LDH, MISC FLUID 2020-12-09 19:42:00 [facility] TRIGLYCERIDES, MIS FLUID 2020-12-09 19:42:00 [facility] PROTEIN, [facility] FLUID 2020-12-09 [facility]:42[facility] 2020-12-09 19:42:00 Krissy [facility] CYTOLOGY 2020-12-09 19:42:00 [facility] (NON-GYNECOLOGICAL) REQUEST HC COMPLETE BLD COUNT 2020-12-09 16:34:00 Karl Oakes [facility] W/AUTO DIFF COMPREHENSIVE METABOLIC 2020-12-09 16:34:00 Krissy [facility] PANEL FIBRINOGEN 2020-12-09 16:34:00 [facility] PROTHROMBIN TIME WITH INR 2020-12-09 16:34:00 [facility] ESTIMATED GFR 2020-12-09 16:34:00 Karl Oakes spital ALBUMIN, [facility] FLUID 2020-11-16 22:17:00 Krissy [facility] AMYLASE LEVEL, [facility] FLUID 2020-11-16 22:17:00 [facility] LDH, [facility] FLUID 2020-11-16 22:17:00 Karl Oakes spital PROTEIN, [facility] FLUID 2020-11-16 22:17:00 Krissy [facility] TRIGLYCERIDES, [facility] FLUID 2020-11-16 22:17:00 [facility] AND 2020-11-16 22:17:00 Karl Oakes spital DIFFERENTIAL, BODY FLUID US ABDOMINAL PARACENTESIS 2020-11-16 20:19:14 [facility] IMAGING CYTOLOGY 2020-11-16 19:50:00 Karl Oakes spital (NON-GYNECOLOGICAL) REQUEST AEROBIC CULTURE 2020-11-16 17:39:00 Karl Oakes spital GRAM STAIN 2020-11-16 17:39:[address] ABDOMEN W WO CONTRAST 2020-11-14 18:33:22 [facility] 2020-11-11 18:45:00 Karl Oakes spital PROTHROMBIN TIME WITH INR 2020-11-11 18:45:00 [facility] COMPREHENSIVE METABOLIC 2020-11-11 18:45:00 Krissy, [facility] PANEL CBC WITH PLATELET AND 2020-11-11 18:45:00 Krissy, [facility] DIFFERENTIAL BASIC METABOLIC PANEL 2020-11-03 18:14:00 Krissy [facility] CBC WITH PLATELET AND 2020-11-03 18:14:00 [facility] DIFFERENTIAL HEPATIC FUNCTION PANEL 2020-11-03 18:14:00 Krissy [facility] PROTHROMBIN TIME WITH INR 2020-11-03 18:14:00 [facility] US ABDOMINAL PARACENTESIS 2020-09-27 18:00:00 [facility] IMAGING AEROBIC CULTURE 2020-09-27 17:30:00 Karl Oakes spital GRAM STAIN 2020-09-27 17:30:00 Krissy Akrldar Kevin spital ANAEROBIC CULTURE 2020-09-27 17:30:00 Krissy [facility] ALBUMIN, MISC FLUID 2020-09-27 17:30:00 Krissy [facility] AMYLASE LEVEL, [facility] FLUID 2020-09-27 17:30:00 [facility] PROTEIN, MISC FLUID 2020-09-27 17:30:00 Krissy [facility] LDH, MISC FLUID 2020-09-27 17:30:00 Karl Oakes TRIGLYCERIDES, MIS FLUID 2020-09-27 17:30:00 Karl Oakes [facility] CELL COUNT AND 2020-09-27 17:30:00 Karl Oakes DIFFERENTIAL, BODY FLUID CYTOLOGY 2020-09-27 17:30:00 Karl aOkes spital (NON-GYNECOLOGICAL) REQUEST POC GLUCOSE 2020-07-26 13:11:00 Jose [facility] HC COMPLETE BLD COUNT 2020-07-26 10:11:00 [facility] W/AUTO DIFF COMPREHENSIVE METABOLIC 2020-07-26 10:11:00 [facility] PANEL MAGNESIUM LEVEL 2020-07-26 10:11:00 [facility] PHOSPHORUS LEVEL 2020-07-26 10:11:00 [facility] PROTHROMBIN TIME WITH INR 2020-07-26 10:11:00 [facility] PARTIAL THROMBOPLASTIN 2020-07-26 10:11:00 [facility] TIME (PTT) ESTIMATED GFR 2020-07-26 10:11:00 [facility] POC GLUCOSE 2020-07-26 10:08:00 Jose Ford POC GLUCOSE 2020-07-26 07:05:00 LilianaJose childers POC GLUCOSE 2020-07-26 02:53:00 LilianaJose childers osleticiatal Farrukh POC GLUCOSE 2020-07-25 22:02:00 Jose Ford ospital Farrukh POC GLUCOSE 2020-07-25 16:31:00 Jose Ford osleticiatal Farrukh POC GLUCOSE 2020-07-25 12:55:00 [facility]TE [facility] 2020-07-25 09:46:00 [facility] W/AUTO DIFF COMPREHENSIVE METABOLIC 2020-07-25 09:46:00 [facility] PANEL MAGNESIUM LEVEL 2020-07-25 09:46:00 [facility] PHOSPHORUS [facility] 2020-07-25 09:46:00 [facility] PROTHROMBIN TIME WITH INR 2020-07-25 09:46:00 [facility] PART[facility] THROMBOPLASTIN 2020-07-25 09:46:00 [facility] TIME (PTT) ESTIMATED GFR 2020-07-25 09:46:[address] [facility] POC GLUCOSE 2020-07-25 09:40:[address] [facility] POC GLUCOSE 2020-07-25 05:20:[address] [facility] POC GLUCOSE 2020-07-25 01:37:[address] [facility] POC GLUCOSE 2020-07-24 21:13:[address] [facility] POC GLUCOSE 2020-07-24 16:55:[address] [facility] POC GLUCOSE 2020-07-24 13:10:[address] [facility] HC COMPLETE BLD COUNT 2020-07-24 08:43:00 [facility] W/AUTO DIFF COMPREHENSIVE METABOLIC 2020-07-24 08:43:00 [facility] PANEL MAGNESIUM LEVEL 2020-07-24 08:43:00 [facility] PHOSPHORUS LEVEL 2020-07-24 08:43:00 [facility] PROTHROMBIN TIME WITH INR 2020-07-24 08:43:00 [facility] PARTIAL THROMBOPLASTIN 2020-07-24 08:43:00 [facility] TIME (PTT) ESTIMATED GFR 2020-07-24 08:43:00 [facility] POC GLUCOSE 2020-07-24 08:39:[address] [facility] POC GLUCOSE 2020-07-24 05:09:[address] [facility] POC GLUCOSE 2020-07-24 01:28:[address] [facility] POC GLUCOSE 2020-07-23 23:13:[address] [facility] POC GLUCOSE 2020-07-23 20:39:[address] [facility] XR HIP 3-4 VIEWS BILATERAL 2020-07-23 19:58:00 [facility] XR LUMBAR SPINE COMPLETE 2020-07-23 19:57:00 [facility] 4+ VW POC GLUCOSE 2020-07-23 16:13:[address] [facility] POC GLUCOSE 2020-07-23 13:06:[address] [facility] POC GLUCOSE 2020-07-23 11:35:[address] [facility] POC GLUCOSE 2020-07-23 10:31:[address] [facility] HC COMPLETE BLD COUNT 2020-07-23 09:03:00 [facility] W/AUTO DIFF COMPREHENSIVE METABOLIC 2020-07-23 09:03:00 [facility] PANEL MAGNESIUM LEVEL 2020-07-23 09:03:00 [facility] PHOSPHORUS LEVEL 2020-07-23 09:03:00 [facility] PROTHROMBIN TIME WITH INR 2020-07-23 09:03:00 [facility] PARTIAL THROMBOPLASTIN 2020-07-23 09:03:00 [facility] TIME (PTT) ESTIMATED GFR 2020-07-23 09:03:00 [facility] POC GLUCOSE 2020-07-23 07:06:00 [facility] POC GLUCOSE 2020-07-23 02:11:00 [facility] P[facility] GLU[facility]SE 2020-07-22 22:33:[address] [facility] POC GLUCOSE 2020-07-22 20:14:[address] [facility] US ABDOMINAL DOPPLER 2020-07-22 19:00:00 Jaya [facility] POC GLUCOSE 2020-07-22 18:43:00 [facility] US HEPATIC 2020-07-22 18:10:00 [facility] ABDOMINAL PARACENTESIS 2020-07-22 17:40:00 Maeganflkhoa [facility] IMAGING AFB STAIN 2020-07-22 17:34:00 [facility] AFB CULTURE 2020-07-22 17:34:00 [facility] AEROBIC CULTURE 2020-07-22 17:34:00 [facility] ANAEROBIC CULTURE 2020-07-22 17:34:00 [facility] GRAM STAIN 2020-07-22 17:34:[address] [facility] LDH, [facility] FLUID 2020-07-22 17:33:00 [facility] PROTEIN, [facility] FLUID 2020-07-22 17:33:00 Jaya [facility] CELL COUNT AND 2020-07-22 17:33:00 [facility] DIFFERENTIAL, BODY FLUID ALBUMIN, [facility] FLUID 2020-07-22 17:33:00 Jaya [facility]IN T[facility] 2020-[facility] 17:33:00 J[facility] FLUID PH, [facility] FLUID 2020-07-22 17:33:00 Jaya [facility] GLUCOSE LEVEL, [facility] FLUID 2020-07-22 17:33:00 Myflvarap, [facility] TRIGLYCERIDES, [facility] FLUID 2020-07-22 17:33:00 Myflvarapu, [facility] TTE COMPLETE, WO CONTRAST, 2020-07-22 16:01:45 [facility] W DOPPLER ([id number]) ECG 12-LEAD 2020-07-22 14:13:26 [facility] 2020-07-22 13:14:00 [facility] POC GLUCOSE 2020-07-22 10:08:00 [facility] ANTI MITOCHONDRIA SCREEN 2020-07-22 06:26:00 [facility] HC COMPLETE BLD COUNT 2020-07-22 06:26:00 [facility] W/AUTO DIFF HEPATITIS A ANTIBODY IGM 2020-07-22 06:25:00 [facility] HEPATITIS B SURFACE 2020-07-22 06:25:00 [facility] ANTIGEN Awais HEPATITIS B CORE ANTIBODY 2020-07-22 06:25:00 [facility]ard [facility] TOTAL Awais HEPATITIS C ANTIBODY 2020-07-22 06:25:00 [facility] IMMUNOGLOBULIN M 2020-07-22 06:24:00 [facility] CANCER ANTIGEN 19-9 2020-07-22 06:24:00 [facility] COMPREHENSIVE METABOLIC 2020-07-22 06:24:00 [facility] PANEL MAGNESIUM LEVEL 2020-07-22 06:24:00 [facility] PHOSPHORUS LEVEL 2020-07-22 06:24:00 [facility] ESTIMATED GFR 2020-07-22 06:24:00 Shana Mendoza [facility] ALPHA FETOPROTEIN 2020-07-22 06:23:00 [facility] CARCINOEMBRYONIC ANTIGEN 2020-07-22 06:23:00 [facility] POC GLUCOSE 2020-07-22 06:21:[address] [facility] PROTHROMBIN TIME WITH INR 2020-07-22 06:20:00 [facility] PARTIAL THROMBOPLASTIN 2020-07-22 06:20:00 [facility] TIME (PTT) POC GLUCOSE 2020-07-22 03:01:[address] [facility] POC GLUCOSE 2020-07-22 01:52:[address] [facility] [address] CHEST WO CONTRAST 2020-07-22 00:00:04 [facility] ANTI SMOOTH MUSCLE AB 2020-07-21 21:20:00 [facility] SCREEN KYLIE 2020-07-21 21:20:00 [facility] HIV AG/AB COMBINATION 2020-07-21 21:20:00 [facility] TROPONIN 2020-07-21 21:20:00 [facility] PROCALCITONIN 2020-07-21 21:20:00 [facility] HEPATITIS ACUTE PANEL 2020-07-21 21:20:00 [facility] ALCOHOL LEVEL, BLOOD 2020-07-21 21:20:00 [facility] ANTI SMOOTH MUSCLE AB 2020-07-21 21:20:00 [facility] TITER BLOOD CULTURE, AEROBIC & 2020-07-21 21:18:00 [facility] ANAEROBIC COVID-19 QUALITATIVE 2020-07-21 21:18:00 [facility] RT-PCR BLOOD CULTURE, AEROBIC & 2020-07-21 21:17:00 [facility] ANAEROBIC LACTIC ACID LEVEL 2020-07-21 20:17:00 [facility] PROCALCITONIN 2020-07-21 20:17:00 [facility] FERRITIN LEVEL 2020-07-21 20:17:00 [facility] FOLATE LEVEL 2020-07-21 20:17:00 [facility] LDH 2020-07-21 20:17:00 [facility] TOTAL IRON BINDING 2020-07-21 20:17:00 [facility] CAPACITY THYROID STIMULATING 2020-07-21 20:17:00 [facility] HORMONE VITAMIN B12 LEVEL 2020-07-21 20:17:00 [facility] TROPONIN 2020-07-21 20:17:[address] [facility] [address] RENAL STONE PROTOCOL 2020-07-21 20:09:37 [facility] OR CRITICAL CARE, E/M 2020-07-21 18:35:43 [facility] 30-74 MINUTES XR CHEST 1 VW PORTABLE 2020-07-21 18:06:00 [facility] URINE CULTURE 2020-07-21 17:25:00 [facility] HC COMPLETE BLD COUNT 2020-07-21 17:25:00 [facility] W/AUTO DIFF COMPREHENSIVE METABOLIC 2020-07-21 17:25:00 [facility] PANEL LIPASE LEVEL 2020-07-21 17:25:00 [facility] URINALYSIS SCREEN AND 2020-07-21 17:25:00 [facility] MICROSCOPY, WITH REFLEX TO CULTURE PHOSPHORUS LEVEL 2020-07-21 17:25:00 [facility] MAGNESIUM LEVEL 2020-07-21 17:25:00 [facility] TROPONIN 2020-07-21 17:25:00 [facility] B NATRIURETIC PEPTIDE 2020-07-21 17:25:00 Mendoza, [facility] AMMONIA LEVEL 2020-07-21 17:25:00 Mendoza, [facility] ESTIMATED GFR 2020-07-21 17:25:00 [facility] PROTHROMBIN TIME WITH INR 2020-07-21 17:25:00 [facility] PARTIAL THROMBOPLASTIN 2020-07-21 17:25:00 MendozaShana villegas [facility] TIME (PTT) LIPID PANEL 2020-07-21 17:25:00 [facility] PROCALCITONIN 2020-07-21 17:25:00 [facility] FERRITIN LEVEL 2020-07-21 17:25:00 [facility] TOTAL IRON BINDING 2020-07-21 17:25:00 [facility] CAPACITY LDH 2020-07-21 17:25:00 [facility] THYROID STIMULATING 2020-07-21 17:25:00 [facility] HORMONE GGT 2020-07-21 17:25:00 [facility] BILIRUBIN DIRECT 2020-07-21 17:25:00 [facility] HEMOGLOBIN A1C 2020-07-21 17:25:00 [facility] FIBRINOGEN 2020-07-21 17:25:00 [facility] D-DIMER 2020-07-21 17:25:00 [facility] ACETAMINOPHEN LEVEL 2020-07-21 17:25:00 [facility] LIPID PANEL 2020-06-16 01:05:00 Alhaji George [facility] HEMATOCRIT 2020-06-16 01:05:00 Doris [facility] ESTRADIOL 2020-06-16 01:05:00 Lipshultz, Alhaji I [facility] PROLACTIN 2020-06-16 01:05:00 Alhaji George I [facility] TESTOSTERONE, FREE/TOTAL 2020-06-16 01:05:00 Alhaji George I [facility] Medicine Plan of Care Planned Activity Planned Date Details Comments Source Future Scheduled 2021-04-05 DIABETES: RETINAL EYE [facility] Test 00:30:01 EXAM [code = DIABETES: RETINAL EYE EXAM] Future Scheduled 2021-04-05 DIABETIC FOOT EXAM [facility] Test 00:30:01 [code = DIABETIC FOOT EXAM] Future Scheduled 2021-04-05 SHINGLES VACCINES (#1) M [facility] Test 00:30:01 [code = SHINGLES VACCINES (#1)] Future Scheduled 2021-04-05 65+ [facility]01 VACCINE (2 of 4 - PPSV23) [code = 65+ PNEUMOCOCCAL VACCINE (2 of 4 - PPSV23)] Future Scheduled 2021-04-05 COVID-19 VACCINE (2 - [facility] Test 00:30:01 Moderna 3-dose series) [code = COVID-19 VACCINE (2 - Moderna 3-dose series)] Future Scheduled 2021-04-05 INFLUENZA VACCINE Method [facility] Test 00:30:01 [code = INFLUENZA VACCINE] Future Scheduled TETANUS SHOT (ADULT) [facility] [code = TETANUS SHOT Medicin e (ADULT)] Future Scheduled COVID-19 Vaccine (1) [facility] [code = COVID-19 Medicine Vaccine (1)] Future Scheduled ZOSTER VACCINE (1 of [facility] 2) [code = ZOSTER Medicine VACCINE (1 of 2)] Future Scheduled MEDICARE AWV (Initial) B [facility] [code = MEDICARE AWV Medicin e (Initial)] Future Scheduled FALL SCREEN [code = [facility] Test FALL SCREEN] Medicine Future Scheduled PNEUMOVAX >=65 [facility] Test (PPSV23) [code = Medicine PNEUMOVAX >=65 (PPSV23)] Future Scheduled FLU VACCINE > 6 MONTHS B [facility] Test [code = FLU VACCINE > Medici ne 6 MONTHS] Encounters Start End Encounter Admission Attending Care Care Encounter Source Date/Time Date/Time Type Type Clinicians Facility Department ID 2021-07-25 2021-07-25 Outpatient R [facility] [id number] NPI:[id number] 10:15:00 10:15:00 [id number] 2021-06-15 2021-06-15 Outpatient TRESA [facility] [id number] [place] 00:00:00 00:00:00 SHANA 230 Method i 2021-06-15 2021-06-15 Outpatient TRESA [facility] [id number] [place] 00:00:00 00:00:00 SHANA 035 Method i 2021-06-14 2021-06-14 Outpatient TRESA [facility] [id number] [place] 00:00:00 00:00:00 SHANA 817 Method i 2021-06-12 2021-06-12 [id number] NPI:[id number] 11:30:00 11:30:00 BUCK [id number] 1 2021-06-12 2021-06-12 [facility] [id number] NPI:[id number] 00:00:00 00:00:00 Buck Cope [facility] 350.1.13.10 [id number] IALTY 4.2.7.2.686 [place] [id number] AND K[facility] 2021-05-31 2021-06-04 Inpatient TRAN, MAVRIN [facility] [id number] [place] 00:00:00 00:00:00 015 Method i 2021-05-26 2021-05-26 Outpatient KRISSY [facility] [id number] [place] 00:00:00 00:00:00 KARL 790 Method i 2021-05-24 2021-05-24 Outpatient TRESA [facility] [id number] [place] 00:00:00 00:00:00 SHANA 228 Method i 2021-05-24 2021-05-24 Outpatient TRESA, [facility] [id number] [place] 00:00:00 00:00:00 SHANA 572 Method i 2021-05-18 2021-05-18 Outpatient KRISSY [facility] [id number] [place] 00:00:00 00:00:00 KARL 510 Method i 2021-05-11 2021-05-11 Outpatient KRISSY, [facility] [id number] [place] 00:00:00 00:00:00 KARL 524 Method i 2021-05-04 2021-05-04 Outpatient KRISSY, [facility] [id number] [place] 00:00:00 00:00:00 KARL 373 Method i 2021-04-28 2021-04-28 Outpatient KRISSY, [facility] [id number] [place] 00:00:00 00:00:00 KARL 850 Method i 2021-04-28 2021-04-28 Outpatient KRISSY, [facility] [id number] [place] 00:00:00 00:00:00 KARL 428 Method i 2021-04-27 2021-04-27 Outpatient KRISSY, [facility] [id number] [place] 00:00:00 00:00:00 KARL 033 Method i 2021-04-20 2021-04-20 Outpatient KRISSY, [facility] [id number] [place] 00:00:00 00:00:00 KARL 629 Method i 2021-04-13 2021-04-13 Outpatient KRISSY, [facility] [id number] [place] 00:00:00 00:00:00 KARL 193 Method i 2021-04-06 2021-04-06 Outpatient KRISSY, [facility] [id number] [place] 00:00:00 00:00:00 KARL 331 Method i 2021-04-03 2021-04-[address] [facility] 1.2.840.114 [id number] NPI:[id number] 11:45:00 12:04:01 Visit Buck Cope MULTISSTEVE 350.1.13.10 [id number] IAMYNOR 4.2.7.2.686 [place] [id number] AND K[facility] 2021-03-31 2021-03-31 Janeen Fernandez, 1.2.840.1 [id number] Methodi 00:00:00 00:00:00 Only Ayla 08766.1.[address] 3.430.2.7 Hospit a .3.595012 l .8 2021-03-31 2021-03-31 [facility], 1.2.840.1 [id number] Methodi 00:00:00 00:00:00 Only Karl 56532.1.[address] 3.430.2.7 Hospit a .3.432545 l .8 2021-03-30 2021-03-30 [facility], 1.2.840.1 [id number] [place] 00:00:00 00:00:00 Encounter KARL 35986.1.1 [address] .3.320763 .8 2021-03-30 2021-03-30 Travel 1.2.840.1 1.2.482.809 [id number] Methodi 00:00:00 00:00:[address] 3.430.2.7 0.2.7.3.698 Ho spita .3.909638 084.8 l .8 2021-03-27 2021-03-27 [facility], 1.2.840.1 [id number] Methodi 12:50:50 13:52:12 Visit Karl 35462.1.[address] 3.430.2.7 Hospit a .3.094296 l .8 2021-03-27 2021-03-27 Travel 1.2.840.1 1.2.783.383 [id number] [id number] Methodi 00:00:00 00:00:[address] 3.430.2.7 0.2.7.3.698 Ho spita .3.637357 084.8 l .8 2021-03-24 2021-03-24 Travel 1.2.840.1 1.2.203.504 [id number] Methodi 00:00:00 00:00:[address] 3.430.2.7 0.2.7.3.698 Ho spita .3.326129 084.8 l .8 2021-03-24 2021-03-24 Orders Serban, 1.2.840.1 [id number] Methodi 00:00:00 00:00:00 Only Ayla 40369.1.[address] 3.430.2.7 Hospit a .3.555846 l .8 2021-03-23 2021-03-23 [facility], 1.2.840.1 [id number] [place] 00:00:00 00:00:00 Encounter KARL 17701.1.1 [address] .3.678021 .8 2021-03-22 2021-03-22 Travel 1.2.840.1 1.2.597.487 [id number] Methodi 00:00:00 00:00:[address] 3.430.2.7 0.2.7.3.698 Ho spita .3.795565 084.8 l .8 2021-03-17 2021-03-17 Orders Serban, 1.2.840.1 [id number] Methodi 00:00:00 00:00:00 Only Ayla 54218.1.[address] 3.430.2.7 Hospit a .3.594553 l .8 2021-03-17 2021-03-17 [facility], 1.2.840.1 [id number] Methodi 00:00:00 00:00:00 Only Karl 16581.1.[address] 3.430.2.7 Hospit a .3.523494 l .8 2021-03-16 2021-03-16 [facility], 1.2.840.1 [id number] [place] 00:00:00 00:00:00 Encounter KARL 33782.1.1 [address] .3.808268 .8 2021-03-16 2021-03-16 Orders [facility], 1.2.840.1 [id number] Methodi 00:00:00 00:00:00 Only Karl 22912.1.[address] 3.430.2.7 Hospit a .3.436505 l .8 2021-03-16 2021-03-16 Travel 1.2.840.1 1.2.934.270 3746 [id number] Methodi 00:00:00 00:00:[address] 3.430.2.7 0.2.7.3.698 Ho spita .3.178465 084.8 l .8 2021-03-13 2021-03-13 Orders Sernikunj, 1.2.840.1 [id number] Methodi 00:00:00 00:00:00 Only Ayla 12378.1.[address] 3.430.2.7 Hospit a .3.083077 l .8 2021-03-09 2021-03-09 [facility] KRISSY, 1.2.840.1 [id number] [place] 00:00:00 00:00:00 Encounter KARL 04195.1.1 [address] .3.746158 .8 2021-03-09 2021-03-09 Travel 1.2.840.1 1.2.394.013 [id number] Methodi 00:00:00 00:00:[address] 3.430.2.7 0.2.7.3.698 Ho spita .3.064257 084.8 l .8 2021-03-03 2021-03-03 [facility], 1.2.840.1 [id number] Methodi 00:00:00 00:00:00 Only Karl 29082.1.[address] 3.430.2.7 Hospit a .3.782601 l .8 2021-02-28 2021-02-28 Travel 1.2.840.1 1.2.610.291 [id number] Methodi 00:00:00 00:00:[address] 3.430.2.7 0.2.7.3.698 Ho spita .3.400305 084.8 l .8 2021-02-23 2021-02-23 [facility] 1.2.840.1 [id number] Methodi 12:47:03 23:59:00 Encounter Karl 69180.1.[address] 3.430.2.7 Hospit a .3.401986 l .8 2021-02-23 2021-02-23 Travel 1.2.840.1 1.2.548.117 3255 [id number] Methodi 00:00:00 00:00:[address] 3.430.2.7 0.2.7.3.698 Ho spita .3.420446 084.8 l .8 2021-02-20 2021-02-20 Travel 1.2.840.1 1.2.171.416 4634 777792 Methodi 00:00:00 00:00:[address] 3.430.2.7 0.2.7.3.698 Ho spita .3.018543 084.8 l .8 2021-02-17 2021-02-17 [facility] 1.2.840.1 [id number] 9804 Methodi 11:50:54 12:50:17 Visit Karl 30600.1.[address] 3.430.2.7 Hospit a .3.464844 l .8 2021-02-17 2021-02-17 Travel 1.2.840.1 1.2.490.695 1236 487467 Methodi 00:00:00 00:00:[address] 3.430.2.7 0.2.7.3.698 Ho spita .3.379075 084.8 l .8 2021-02-16 2021-02-16 Orders Serban, 1.2.840.1 [id number] 710979 8686 Methodi 00:00:00 00:00:00 Only Ayla 69562.1.[address] 3.430.2.7 Hospit a .3.743020 l .8 2021-02-15 2021-02-15 Hospital [facility], 1.2.840.1 [id number] Methodi 13:00:00 23:59:00 Encounter Rupinder 64113.1.[address] 3.430.2.7 Hospit a .3.167465 l .8 2021-02-15 2021-02-15 Travel 1.2.840.1 1.2.785.802 6621 210066 Methodi 00:00:00 00:00:[address] 3.430.2.7 0.2.7.3.698 Ho spita .3.677815 084.8 l .8 2021-02-06 2021-02-06 Travel 1.2.840.1 1.2.004.629 3895 441280 Methodi 00:00:00 00:00:[address] 3.430.2.7 0.2.7.3.698 Ho spita .3.965880 084.8 l .8 2021-02-03 2021-02-03 Orders Krissy, 1.2.840.1 [id number] 1108 Methodi 00:00:00 00:00:00 Only Karl 72901.1.[address] 3.430.2.7 Hospit a .3.992893 l .8 2021-02-02 2021-02-02 Hospital [facility], 1.2.840.1 [id number] 08001 67293 Methodi 23:59:00 23:59:00 Encounter Rupinder 12875.1.[address] 3.430.2.7 Hospit a .3.993653 l .8 2021-01-31 2021-02-01 Emergency Marcello Awad2.8 40.1 [id number] Methodi 12:23:00 15:20:00 Ty Basurto 62538.1.[address] 3.430.2.7 Hospit a .3.991224 l .8 2021-01-31 2021-01-31 Travel 1.2.840.1 1.2.293.177 4576 [id number] Methodi 00:00:00 00:00:[address] 3.430.2.7 0.2.7.3.698 Ho spita .3.924349 084.8 l .8 2021-01-30 2021-01-30 [facility], 1.2.840.1 [id number] 03129 Methodi 23:59:00 23:59:00 [facility] Rupinder 20239.1.[address] 3.430.2.7 Hospit a .3.079288 l .8 2021-01-25 2021-01-25 [facility], 1.2.840.1 [id number] 4429 Methodi 11:50:15 11:55:[address] 3.430.2.7 Hospit a .3.863062 l .8 2021-01-25 2021-01-25 Travel 1.2.840.1 1.2.753.863 1355 549420 Methodi 00:00:00 00:00:[address] 3.430.2.7 0.2.7.3.698 Ho spita .3.146987 084.8 l .8 2021-01-24 2021-01-24 [facility], 1.2.840.1 [id number] 961 [id number] Methodi 11:12:18 11:29:32 ne Rupinder 14839.1.[address] 3.430.2.7 Hospit a .3.219850 l .8 2021-01-06 2021-01-06 [facility] Krissy, 1.2.840.1 [id number] 8274 Methodi 00:00:00 00:00:00 Only Karl 19206.1.[address] 3.430.2.7 Hospit a .3.091739 l .8 2021-01-05 2021-01-05 [facility], 1.2.840.1 [id number] 50986 Methodi 11:02:36 23:59:00 Encounter Karl 16992.1.[address] 3.430.2.7 Hospit a .3.486062 l .8 2021-01-05 2021-01-05 Travel 1.2.840.1 1.2.728.668 2598 [id number] Methodi 00:00:00 00:00:[address] 3.430.2.7 0.2.7.3.698 Ho spita .3.139049 084.8 l .8 2020-12-27 2020-12-27 Travel 1.2.840.1 1.2.742.316 9322 790265 Methodi 00:00:00 00:00:[address] 3.430.2.7 0.2.7.3.698 Ho spita .3.598365 084.8 l .8 2020-12-22 2020-12-22 [facility], 1.2.840.1 [id number] Methodi 12:57:15 23:59:00 Encounter Karl 35381.1.[address] 3.430.2.7 Hospit a .3.668835 l .8 2020-12-22 2020-12-22 Travel 1.2.840.1 1.2.984.205 7019 [id number] Methodi 00:00:00 00:00:[address] 3.430.2.7 0.2.7.3.698 Ho spita .3.943751 084.8 l .8 2020-12-20 2020-12-20 Travel 1.2.840.1 1.2.725.662 5622 156634 Methodi 00:00:00 00:00:[address] 3.430.2.7 0.2.7.3.698 Ho spita .3.045030 084.8 l .8 2020-12-09 2020-12-09 [facility], 1.2.840.1 [id number] 53308 03794 Methodi 12:41:04 23:59:00 Encounter Karl [address]476.1.[address] 3.430.2.7 Hospit a .3.944251 l .8 2020-12-09 2020-12-09 [facility], 1.2.840.1 [id number] 2657 Methodi 11:15:03 11:20:[address] 3.430.2.7 Hospit a .3.747516 l .8 2020-12-09 2020-12-09 [facility], 1.2.840.1 [id number] 0473 Methodi 09:59:53 10:53:14 Visit Karl 26527.1.[address] 3.430.2.7 Hospit a .3.101074 l .8 2020-12-09 2020-12-09 [facility], 1.2.840.1 [id number] 9364 Methodi 00:00:00 00:00:00 Only Karl 85993.1.[address] 3.430.2.7 Hospit a .3.253000 l .8 2020-12-08 2020-12-08 Travel 1.2.840.1 1.2.139.613 0068 616832 Methodi 00:00:00 00:00:[address] 3.430.2.7 0.2.7.3.698 Ho spita .3.878584 084.8 l .8 2020-11-16 2020-11-16 [facility], 1.2.840.1 [id number] 62013 Methodi 12:39:10 23:59:00 Encounter Karl [address]227.1.[address] 3.430.2.7 Hospit a .3.581693 l .8 2020-11-16 2020-11-16 Travel 1.2.840.1 1.2.822.467 1390 560522 Methodi 00:00:00 00:00:[address] 3.430.2.7 0.2.7.3.698 Ho spita .3.469043 084.8 l .8 2020-11-14 2020-11-14 [facility], 1.2.840.1 [id number] 74519 47843 Methodi 12:33:53 23:59:00 Encounter Karl 82971.1.[address] 3.430.2.7 Hospit a .3.224697 l .8 2020-11-14 2020-11-14 Travel 1.2.840.1 1.2.773.551 1145 304334 Methodi 00:00:00 00:00:[address] 3.430.2.7 0.2.7.3.698 Ho spita .3.277366 084.8 l .8 2020-11-11 2020-11-11 [facility] 1.2.840.1 [id number] 1808 Methodi 11:26:15 12:44:45 Visit Karl 54288.1.[address] 3.430.2.7 Hospit a .3.635560 l .8 2020-11-11 2020-11-11 Travel 1.2.840.1 1.2.801.194 5903 011620 Methodi 00:00:00 00:00:[address] 3.430.2.7 0.2.7.3.698 Ho spita .3.186892 084.8 l .8 2020-11-10 2020-11-10 [facility], 1.2.840.1 [id number] 9573 Methodi 00:00:00 00:00:00 Only Ayla 27916.1.[address] 3.430.2.7 Hospit a .3.761424 l .8 2020-11-09 2020-11-09 [facility], 1.2.840.1 [id number] 3950 Methodi 00:00:00 00:00:00 Only Ayla 43599.1.[address] 3.430.2.7 Hospit a .3.886393 l .8 2020-09-21 2020-10-13 [facility], 1.2.840.1 [id number] 3281 Methodi 09:53:51 16:26:53 Visit Karl [address]3515.1.[address] 3.430.2.7 Hospit a .3.213282 l .8 2020-09-27 2020-09-27 [facility], 1.2.840.1 [id number] 14631 17638 Methodi 10:00:00 23:59:00 Encounter Karl 21511.1.[address] 3.430.2.7 Hospit a .3.236966 l .8 2020-09-27 2020-09-27 Travel 1.2.840.1 1.2.720.882 2298 [id number] Methodi 00:00:00 00:00:[address] 3.430.2.7 0.2.7.3.698 spita .3.162173 084.8 l .8 2020-08-31 2020-09-22 [facility], 1.2.840.1 [id number] 4516 Methodi 09:51:14 00:45:44 Visit Karl 58279.1.[address] 3.430.2.7 Hospit a .3.389577 l .8 2020-09-22 2020-09-22 [facility], 1.2.840.1 [id number] 0520 Methodi 00:00:00 00:00:[address] 3.430.2.7 Hospit a .3.415150 l .8 2020-09-22 2020-09-22 Refill Krissy, 1.2.840.1 [id number] 712151 8144 Methodi 00:00:00 00:00:[address] 3.430.2.7 Hospit a .3.291157 l .8 2020-09-22 2020-09-22 Refill Krissy, 1.2.840.1 [id number] 019505 9681 Methodi 00:00:00 00:00:[address] 3.430.2.7 Hospit a .3.701643 l .8 2020-09-21 2020-09-21 Travel 1.2.840.1 1.2.962.717 3260 500853 Methodi 00:00:00 00:00:[address] 3.430.2.7 0.2.7.3.698 Ho spita .3.500476 084.8 l .8 2020-09-01 2020-09-01 Telephone [facility] 1.2.840.1 [id number] Methodi 00:00:00 00:00:00 Fan blank 36600.1.[address] J 3.430.2.7 Hospit a .3.476330 l .8 2020-08-31 2020-08-31 Travel 1.2.840.1 1.2.292.363 8114 559871 Methodi 00:00:00 00:00:[address] 3.430.2.7 0.2.7.3.698 Ho spita .3.546626 084.8 l .8 2020-08-22 2020-08-22 Telephone [place], 1.2.840.1 [id number] 2099 [id number] Methodi 00:00:00 00:00:00 Catina Quiroz [address]014.1.[address] 3.430.2.7 Hospit a .3.396195 l .8 2020-08-17 2020-08-17 Office Tavares Awan 1.2.840.1 104 [id number] Methodi 13:08:55 13:23:55 Visit FarooqAlysa Aida 19692.1.[address] 3.430.2.7 Hospit a .3.697075 l .8 2020-08-17 2020-08-17 Travel 1.2.840.1 1.2.537.834 7601 911020 Methodi 00:00:00 00:00:[address] 3.430.2.7 0.2.7.3.698 Ho spita .3.905211 084.8 l .8 2020-08-12 2020-08-12 Telephone Peng, 1.2.840.1 [id number] 2099 540787 Methodi 00:00:00 00:00:00 Catina Quiroz 07105.1.[address] 3.430.2.7 Hospit a .3.091343 l .8 2020-08-03 2020-08-03 Telephone Annabelle, 1.2.840.1 [id number] 929 [id number] Methodi 00:00:00 00:00:[address] 3.430.2.7 Hospit a .3.057905 l .8 2020-07-21 2020-07-26 Shana Muñoz 1.2.840.1 1040 90792 [id number] Methodi 11:18:00 15:20:00 Encounter Chau Henry 93556.1.[address] [place] 3.430.2.7 Hospita .3.231835 l .8 2020-07-22 2020-07-22 Camryn Zarate 1.2.840.1 [id number] Methodi 00:00:00 00:00:[address] 3.430.2.7 Hospit a .3.786844 l .8 2020-07-21 2020-07-21 Travel 1.2.840.1 1.2.459.521 4845 810493 Methodi 00:00:00 00:00:[address] 3.430.2.7 0.2.7.3.698 Ho spita .3.325417 084.8 l .8 2020-06-15 2020-06-15 Office KATHARINA George 1.2.840.114 803 78154 [facility] 17:18:35 19:40:39 Visit Alhaji Miles AMBULATOR 350.1.13.21 [employer] 0.2.7.2.686 996.7475162 Medi kat 300 e 2020-05-23 2020-05-23 Office CARLOS Kenyon 1.2.840.114 816 93276 15:04:57 15:52:06 Visit Buck Cope MULTISPEC 350.1.13.10 IALTY 4.2.7.2.686 [place] 637.0191851 [facility] Results Test Description Test Time Test Comments Results Result Comments Source SARS-CoV-2 (COVID-19) RNA [Presence] in Respiratory sp ecimen by 2021-06-01 05:47:20 KELTON with probe detection Test Item Value Reference Range Interpretation Comme nts SARS-CoV-2 (COVID-19) RNA [Presence] in Respiratory specimen by Not detected KELTON with probe detection (test code = 03745-8) Whether patient is employed in a healthcare setting (test code = Un known 67655-2) Whether the patient has symptoms related to condition of interest U nknown (test code = 72087-2) Whether the patient was hospitalized for condition of interest Unkn own (test code = 24568-7) Whether the patient was admitted to intensive care unit (ICU) for U nknown condition of interest (test code = 48209-9) Whether patient resides in a congregate care setting (test code = U nknown 73604-0) status (test code = 93103-7) Unknown Date and time of symptom onset (test code = 74102-8) Unknown Anaerobic [id number] 18:08:11 Test Item Value Reference Range Interpretation Comments Anaerobic No anaerobic Specimen culture isolate organisms InformationS pecimen (test code = isolated. Source: Periton eal 552) fluidSpecimen S ite: abdominal [facility] [id number] 23:36:50 Test Item Value Reference Range Interpretation Comments Aerobic culture No growth Specimen isolate (test after 3 days. InformationSp ecimen code = 498) Source: Periton eal fluidSpecimen S ite: abdominal [facility] (non-gynecological) [id number] 18:50:20 Test Item Value Reference Range Interpretation Comments Case number (test code = [id number]) Cytology See link below for (non-gynecological) PDF Lab Report report (test code = 1178) Result status (test code This is Final Report = [id number]) for [id number] [facility] HospitalGram [id number] 22:54:39 Test Item Value Reference Range Interpretation Comments Gram stain No WBC's or Specimen isolate (test organisms seen. Information Specimen code = 1469) Source: Periton eal fluidSpecimen S ite: abdominal [facility] HospitalCell count and differential, body [id number] 21:11:13 Test Item Value Reference Range Interpretation Comments Misc fluid type Peritoneal (test code = 01569-8) Color, fluid (test Yellow code = 6824-7) Appearance, fluid Slightly hazy (test code = 9335-1) RBC, fluid (test SEE COMMENT See_Comment 1+ (0 - 500 code = 30016-3) RBC/CMM) [Automated message] The system which generated this result transmit niranjan reference range : /CMM. The reference range was not used to interpret this result as normal/abnormal . Nucleated cells, See_Comment [Automated fluid (test code = message] The 13349-9) system which generated this result transmit niranjan reference range : /CMM. The reference range was not used to interpret this result as normal/abnormal . Fluid mononuclear See Diff cell (test code = 1407) Neutrophils, fluid 17 % (test code = 98250-9) Lymphocytes, fluid 42 % (test code = 74560-3) Macrophages, fluid 40 % (test code = 76282-2) Plasma cells, fluid 1 % (test code = 33977-0) TOÑA (test code = peritoneal fluid TOÑA) [facility], [facility] [id number] 20:04:51 Test Item Value Reference Range Interpretation Comments Fluid type Peritoneal (test code = 92694-6) Albumin, 0.3 g/dL The reference fluid (test interval(s) and other code = method performa nce 1747-5) specifications have not been establishe d for this body fluid . The test results mu st be integrated into the clinical contex t for interpretation. This test has been m odified from the [facility] cturers instructions. The performance characteristics were determined by Fuad chan in a manner consiste nt with CLIA requiremen ts. This test has n ot been cleared or appr jaida by the U.[place]. Food a nd Drug Administration. TOÑA (test peritoneal fluid code = TOÑA) [facility] [id number] 20:04:51 Test Item Value Reference Range Interpretation Comments Fluid type Peritoneal (test code = 62539-0) LDH, fluid 35 U/L The reference (test code = interval(s) and other 78002-0) method performa nce specifications have not been establishe d for this body fluid . The test results mu st be integrated into the clinical contex t for interpretation. This test has been m odified from the [facility] [employer] instructions. The performance characteristics were determined by Fuad chan in a manner consiste nt with CLIA requiremen ts. This test has n ot been cleared or appr jaida by the U.S. Food a nd Drug Administration. TOÑA (test peritoneal fluid code = TOÑA) [facility], [facility] [id number] 20:04:51 Test Item Value Reference Range Interpretation Comments Fluid type Peritoneal (test code = 17013-9) Protein, 0.8 g/dL The reference fluid (test interval(s) and other code = method performa nce 2881-1) specifications have not been establishe d for this body fluid . The test results mu st be integrated into the clinical contex t for interpretation. This test has been m odified from the [facility] [employer] instructions. The performance characteristics were determined by Fuad chan in a manner consiste nt with CLIA requiremen ts. This test has n ot been cleared or appr jaida by the U.S. Food a nd Drug Administration. TOÑA (test peritoneal fluid code = TOÑA) [facility], [facility] [id number] 20:04:51 Test Item Value Reference Range Interpretation Comments Fluid type Peritoneal (test code = 87318-6) Triglyceride, 41 mg/dL The reference fluid (test interval(s) and other code = method performa nce 93499-5) specifications have not been establishe d for this body fluid . The test results mu st be integrated into the clinical contex t for interpretation. This test has been m odified from the [facility] [employer] instructions. The performance characteristics were determined by [facility] in a manner consiste nt with CLIA requiremen ts. This test has n ot been cleared or appr jaida by the U.S. Food a nd Drug Administration. TOÑA (test peritoneal fluid code = TOÑA) [facility], [facility] [id number] 20:04:50 Test Item Value Reference Range Interpretation Comments Fluid type Peritoneal (test code = 23693-6) Amylase, 7 U/L The reference fluid (test interval(s) and other code = method performa nce 1795-4) specifications have not been establishe d for this body fluid . The test results mu st be integrated into the clinical contex t for interpretation. This test has been m odified from the [facility] [employer] instructions. The performance characteristics were determined by [facility] in a manner consiste nt with CLIA requiremen ts. This test has n ot been cleared or appr jaida by the U.S. Food a nd Drug Administration. TOÑA (test peritoneal fluid code = TOÑA) [facility] Hospital[facility] [id number] 06:15:57 Test Item Value Reference Range Interpretation Comments Fungus culture No growth Specimen isolate (test after 4 weeks InformationSp ecimen code = 1441) of Source: Ascites incubation. FluidSpecimen S ite: Not otherwise speci fied [facility] HospitalAFB [id number] 19:33:31 Test Item Value Reference Range Interpretation Comments AFB stain No acid fast Specimen (test code = bacilli (AFB) InformationSpe cimen 676-7) seen. Source: Ascites FluidSpecimen S ite: Not otherwise speci fied [facility] [id number] 19:01:58 Test Item Value Reference Range Interpretation Comments Fungus smear No fungi Specimen (test code = observed. 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 The reference range was not used to interpret this result as normal/abnormal . Albumin/globulin See_Comment L [Automated ratio (test code = message] The 7449-0) system which generated this result transmitted reference [...] 1920-8) ALT (test code = 14 U/L 946 1742-6) RAC (test code = Performing RAC) Organization Information: Site ID: RGA [facility] Address: [address] [place] [id number] Director: Shana Galicia Lab Interpretation Abnormal (test code = 18096-2) [facility] [id number] 01:40:51 Test Item Value Reference Range Interpretation Comments Urine culture Mixed tremayne Specimen isolate (test <=10-3 col/cc InformationSp ecimen code = 80334-1) Source: Urin eSpecimen Site: Clean cat [facility]/TOTAL [id number] 11:30:08 Test Item Value Reference Range Interpretation [...] Indicated, All Testing Per formed At: [facility], [address] [place], [place] [address] Laboratory Dire ctor: Jim rios M.D. CLI A Number [id number] Cap Accreditati on No. Lab Interpretation Abnormal (test code = 17013-7) [id number] 11:28:20 Test Item Value Reference Range Interpretation Comments ESTRADIOL LEVEL 23.5 PG/ML See_Comment Note: Values in (test code = 2243-4) the ran ge of 17-25 PG/ML may demon strate increas ed imprecision. C linical correlation is recommended. Unless Otherwis e Indicated, All Testing Performed At: [facility], [address] [place], [place] [address] Permit Review Assistant: Jim Montes M.D. CLIA Number [id number] [facility] Accreditati on No. [Auto mated message] The sy stem which generated this result transmit niranjan reference range : <=60.7. The ref erence range was not u sed to interpret this result as normal/abnor mal. [facility] Hospit[id number] 11:28:20 Test Item Value Reference Range Interpretation [...] Indic ated, All Testing Perform ed At: [facility], [address] [place] [address] 4 Laboratory Dire ctor: Jim Montes M.D. CLIA Number [id number] Cap Accreditation N o. [Automated mess age] The system which generated this result transmitted ref erence range: 4.0 - 26.0 NG/M L. The reference range was not u sed to interpret this result as normal/abnormal. [facility] + LH [id number] 11:28:20 Test Item Value Reference Range Interpretation Comments FOLLICLE STIMULATING See_Comment H [Autom ated message] HORMONE (test code = The sys tem which 79905-1) generated this result transmitted ref erence range: 1.5 - 12 .4 IU/L. The refer ence range was not u sed to interpret this result as normal/abnor mal. LUTEINIZING HORMONE See_Comment H Unless (test code = 85963-6) Otherw ise Indicated, All Testing Per formed At: [facility], [address] [place] [address] Laboratory Dire ctor: Jim rios M.D. CLIA Num mag [id number] Cap Accreditation N o. 35051-86 [Auto mated message] The sy stem which generated this result transmit niranjan reference range : 1.2 - 8.6 IU/L. The reference range was not used to int erpret this result as normal/abnormal . Lab Interpretation Abnormal (test code = 81593-1) [facility] HospitalLIPID [id number] 10:19:48 Test Item Value Reference Range Interpretation Comments CHOLESTEROL (test code See_Comment [Aut omated message] = 2093-3) The system [facility] h generated this result transmitted ref erence range: <200 MG/ DL. The reference range was not used to int erpret this result as normal/abnormal . TRIGLYCERIDES (test See_Comment [Automa niranjan message] code = 2571-8) The system [employer] generated this result transmitted ref erence range: <150 MG/ DL. The reference range was not used to int erpret this result as normal/abnormal . HDL CHOLESTEROL (test See_Comment L [Auto mated message] code = 2085-9) The system [employer] generated this result transmitted ref erence range: >39 MG/D L. The reference range was not used to int erpret this result as normal/abnormal . LDL CHOLESTEROL See_Comment NOTE: CALCU LATED LDL CALCULATED (test code = [place] [address]-3) AAYUSH-HAUSER METHOD WHICHINCLUDES ADJUSTABLE TRIGLYCERIDE:VL DL CHOLESTEROL RAT IO.THIS FACTOR VARIES B Y MEASURED TRIGLY CERIDE AND NON-HDLCHOL ESTEROL CONCENTRATIONS WITH INCREASED CALCU LATED LDL SEENIN HIGH ER TRIGLYCERIDE OR LOWER NON-HDL SPECIME NS. FOR MOREINFORMATION , SEE CLIENT ANNOUNCE MENT AT [email or web address] [Automated mess age] The system [employer] generated this result transmitted ref erence range: <100 MG/ DL. The reference range was not used to int erpret this result as normal/abnormal . LDL/HDL RATIO, SERUM See_Comment Unless (test code = 72370-6) Otherw ise Indicated, All Testing Per formed At: [facility], [address] [place] [address] Laboratory Dire ctor: Jim rios M.D. CLIA Num mag [id number] Cap Accreditation N o. 89725-83 [Auto mated message] The sy stem which generated this result transmit niranjan reference range : <3.55 RATIO. The refe rence range was not u sed to interpret this result as normal/abnor mal. Lab Interpretation Abnormal (test code = 91988-3) [facility] Ho[id number] 06:55:01 Test Item Value Reference Range Interpretation Comments HEMATOCRIT (test code = 34.8 % 40.0-51.0 L Unless ) Otherwise Indic ated, All Testing Per formed At: [facility], [address] [place] [address] Laboratory Dire ctor: Jim rios M.D. CLIA Num mag [id number] Cap Accreditation N o. 61089-47 Lab Interpretation Abnormal (test code = 52628-0) [facility])2019-08-29 09:44:00 Test Item Value Reference Range Interpretation Comments SARS-COV2/RT-PCR (test code = Positive Not Detected, Negative A A [id number]) SARS-COV-2 PERFORMING LAB [facility] (test code = 4861571) Results are for the detection of SARS-CoV-2 [...] 564(g) of the Act.Fact Sheet for Healthcare Providers:https://www.quidel.com/sites/default/files/product/d ocuments/Miol_Brhdr_LN_Mcyhmssks_Tnls_JZHB-BkC-8.pdfFact Sheet for Healthcare Patients:https://www.Pop.it idel.com/sites/default/files/product/documents/Fact_Sheet_Patients_Lyra_SARS-CoV -2.pdfPerforming Laboratory:[facility] [place] [address]
[2021-07-09] MEDS ORDERED: MORPHINE 2 MG/ML SYR ONE (04:35)
[2021-07-09] MEDS ORDERED: ONDANSETRON 4 MG/2 ML VIAL ONE (04:36)
[2021-07-09] MEDS ORDERED: FAMOTIDINE 20 MG/2 ML VIAL IV ONE ×2 (04:37→04:55)
[2021-07-09 04:52] LABS: Absolute Lymphocytes (CBC) 0.4 K/uL (0.7-4.9); Hematocrit 32.5 % (39.6-49.0); Lymphocytes % 5.9 % (15.3-44.8); MPV 10.3 fL (7.6-11.3); RBC Red Blood Cell Count 3.34 M/uL (4.33-5.43)
[2021-07-09 05:15] LABS: Protime INR 2.31
[2021-07-09 05:16] LABS: Albumin 2.9 g/dL (3.4-5.0); Bilirubin Total 3.1 mg/dL (0.2-1.0); Protein, Total 8.5 g/dL (6.4-8.2)
[2021-07-09 05:18] LABS: Potassium 6.1 mmol/L (3.5-5.1)
[2021-07-09] MEDS ORDERED: Caclcium Chloride 10% INJ SYR IV ONE (05:35)
[2021-07-09] MEDS ORDERED: INSULIN -REGULAR HUMAN 50 UNIT/0.5 ML ML ONE (05:37)
[2021-07-09 05:39] LABS: Arterial Blood Carboxyhemoglob 1.1 % (0-1.5); Blood Gas Oxyhemoglobin 95.3 % (94-97); Blood O2 Saturation 97.5 % (92-98.5)
[2021-07-09 05:44] LABS: SARS-COV-2 RT PCR NEGATIVE (NEGATIVE)
[2021-07-09] MEDS ORDERED: SODIUM BICARB 50 MEQ/50ML VIAL ONE (05:53)
[2021-07-09] MEDS ORDERED: SOD POLYSTYREN SUL 15 GM/60 ML UCUP ONE (05:56)
--- NOTE | 2021-07-09 06:35 | EDPHYS ---
Physician Documentation [facility] Name: Tacho Lundy Age: 76 yrs Sex: Male : 1945 Arrival Date: 07/09/2021 Time: 04:20 Bed 2 Private MD: ED Physician Saurav Dorsey HPI: 07/09 04:29 This 76 yrs old Unknown Male presents to ER via EMS with complaints of Abdominal Pain. [facility] 04:29 The patient presents with abdominal pain in the lower abdomen. Onset: The 7 symptoms/episode began/occurred 2 day(s) ago. The symptoms do not radiate. Associated signs and symptoms: Pertinent positives: nausea and vomiting, Pertinent negatives: blood in stools, chest pain, constipation, diarrhea, dysuria, fever, headache, hematuria, palpitations, shortness of breath, testicular pain, vomiting blood. The symptoms are described as intermittent, vague, waxing/waning. Modifying factors: The symptoms are alleviated by nothing, the symptoms are aggravated by nothing. Severity of pain: At its worst the pain was moderate yesterday, in the emergency department the pain is unchanged. 04:29 The patient has experienced similar episodes in the past, multiple times. mh7 Historical: - Allergies: 04:57 Vancomycin; kd3 04:22 Vancomycin; as6 - Home Meds: 04:22 aspirin 81 mg oral tab 81 mg daily [Active]; carvedilol 25 mg oral tab 1 tab daily as6 [Active]; ferrous sulfate 325 mg (65 mg iron) Oral tab 1 tab once daily [Active]; hydroxyzine HCl 25 mg Oral tab 1 tab 3 times per day [Active]; Novolog U-100 Insulin aspart 100 unit/mL Sub-Q soln [Active]; lactulose 20 gram/30 mL Oral soln 30 mL twice a day [Active]; lubiprostone 8 mcg oral cap 1 cap 2 times per day [Active]; magnesium oxide 400 mg magnesium Oral cap 400 mg twice a day [Active]; pantoprazole 40 mg oral TbEC 1 tab 2 times per day [Active]; rifaximin 550 mg oral tab 1 tab 2 times per day [Active]; sertraline 100 mg oral tab 1 tab once daily [Active]; - PMHx: 04:57 back surgery; Chronic pain; cirrhosis of liver; cirrhosis of liver; Diabetes - IDDM; kd3 Hernia; Hypertension; 04:22 back surgery; Chronic pain; cirrhosis of liver; cirrhosis of liver; Diabetes - IDDM; as6 Hernia; Hypertension; - Immunization history:: Adult Immunizations up to date, Client reports receiving the 2nd dose of the Covid vaccine. - Social history:: Smoking status: Patient denies any tobacco usage or history of. Smoking status: unknown. ROS: 04:29 Constitutional: Negative for fever, chills, and weight loss, Eyes: Negative for injury, mh7 pain, redness, and discharge, ENT: Negative for injury, pain, and discharge, Neck: Negative for injury, pain, and swelling, Cardiovascular: Negative for chest pain, palpitations, and edema, Respiratory: Negative for shortness of breath, cough, wheezing, and pleuritic chest pain, Back: Negative for injury and pain, : Negative for injury, bleeding, discharge, and swelling, MS/Extremity: Negative for injury and deformity, Skin: Negative for injury, rash, and discoloration, Neuro: Negative for headache, weakness, numbness, tingling, and seizure, Psych: Negative for depression, anxiety, suicide ideation, homicidal ideation, and hallucinations, Allergy/Immunology: Negative for hives, rash, and allergies, Endocrine: Negative for neck swelling, polydipsia, polyuria, polyphagia, and marked weight changes, Hematologic/Lymphatic: Negative for swollen nodes, abnormal bleeding, and unusual bruising. Exam: 04:29 Head/Face: Normocephalic, atraumatic. Eyes: Pupils equal round and reactive to light, mh7 extra-ocular motions intact. Lids and lashes normal. Conjunctiva and sclera are non-icteric and not injected. Cornea within normal limits. Periorbital areas with no swelling, redness, or edema. Neck: Trachea midline, no thyromegaly or masses palpated, and no cervical lymphadenopathy. Supple, full range of motion without nuchal rigidity, or vertebral point tenderness. No Meningismus. Chest/axilla: Normal chest wall appearance and motion. Nontender with no deformity. No lesions are appreciated. Cardiovascular: Regular rate and rhythm with a normal S1 and S2. No gallops, murmurs, or rubs. Normal PMI, no JVD. No pulse deficits. Respiratory: Lungs have equal breath sounds bilaterally, clear to auscultation and percussion. No rales, rhonchi or wheezes noted. No increased work of breathing, no retractions or nasal flaring. Back: No spinal tenderness. No costovertebral tenderness. Full range of motion. Skin: Warm, dry with normal turgor. Normal color with no rashes, no lesions, and no evidence of cellulitis. MS/ Extremity: Pulses equal, no cyanosis. Neurovascular intact. Full, normal range of motion. 04:29 Constitutional: The patient appears in no acute distress, alert, awake, uncomfortable. 04:29 Abdomen/GI: Inspection: abdomen appears normal, Bowel sounds: normal, in all quadrants, Palpation: mild abdominal tenderness, in the suprapubic area, right lower quadrant and left lower quadrant, mass, is not appreciated, rebound tenderness, is not appreciated, voluntary guarding, is not appreciated, involuntary guarding, is not appreciated, organomegaly is appreciated, hepatomegaly, Indicators: McBurney's point is not tender, Valentin's sign is negative, Rovsing's sign is negative, Obturator sign is negative, Psoas sign is negative, Liver: is enlarged, Hernia: not appreciated. Vital Signs: 04:20 BP 153 / 77; Pulse 85; Resp 18 S; Temp 98.7(O); Pulse Ox 100% on R/A; Weight 81.65 kg as6 (R); Height 5 ft. 9 in. (175.26 cm) (R); Pain 10/10; 05:38 BP 165 / 60; Pulse 85; Resp 20 S; Pulse Ox 100% on R/A; as6 05:50 BP 156 / 61; Pulse 106; Resp 18; Pulse Ox 100% on R/A; kd3 04:20 Body Mass Index 26.58 (81.65 kg, 175.26 cm) as6 MDM: 06:32 Differential diagnosis: appendicitis, bowel obstruction, diverticulitis, gastritis, mh7 gastroesophageal reflux disease, non-specific abd pain, pancreatitis, Peptic Ulcer Disease, Pyelonephritis, Ureterolithiasis, urinary tract infection. Data reviewed: vital signs, nurses notes, old medical records, lab test result(s), cardiac enzymes, CBC, electrolytes, Flu: negative hepatic panel, EKG, radiologic studies, CT scan. Data interpreted: Pulse oximetry: on room air is 100 %. Interpretation: normal. Counseling: I had a detailed discussion with the patient and/or guardian regarding: the historical points, exam findings, and any diagnostic results supporting the discharge/admit diagnosis, the presence of at least one elevated blood pressure reading (>120/80) during this emergency department visit, lab results, radiology results, the need for further work-up and treatment in the hospital. Response to treatment: the patient's symptoms have mildly improved after treatment. 06:34 Patient medically screened. [facility] 07/09 04:28 Order name: CBC with Diff; Complete Time: 05:20 [facility] 07/09 04:28 Order name: CMP; Complete Time: 05:20 [facility] 07/09 04:28 Order name: Lipase; Complete Time: 05:20 [facility] 07/09 04:28 Order name: ETOH Level; Complete Time: 05:20 [facility] 07/09 04:28 Order name: AMMONIA; Complete Time: 05:22 [facility] 07/09 04:28 Order name: Protime (+inr); Complete Time: 05:20 [facility] 07/09 04:28 Order name: Ptt, Activated; Complete Time: 05:20 [facility] 07/09 04:43 Order name: COVID-19/FLU A+B (Document "Date of Onset" if Symptomatic); Complete Time: [facility] 05:48 07/09 05:23 Order name: Ketone, Serum; Complete Time: 05:41 [facility] 07/09 05:23 Order name: Arterial Blood Gas; Complete Time: 05:46 [facility] 07/09 05:26 Order name: Troponin High Sensitivity; Complete Time: 06:14 [facility] 07/09 07:15 Order name: Glucose, Ancillary Testing; Complete Time: 07:38 [facility] 07/09 11:36 Order name: Basic Metabolic Panel [facility] 07/09 18:01 Order name: Glucose, Ancillary Testing [facility] 07/09 04:28 Order name: CT Abd/Pelvis - Without Contrast [facility] 07/09 04:28 Order name: IV Saline Lock; Complete Time: 04:53 [facility] 07/09 04:28 Order name: Labs collected and sent; Complete Time: 04:53 [facility] 07/09 04:28 Order name: EKG; Complete Time: 04:29 [facility] 07/09 04:28 Order name: EKG - Nurse/Tech; Complete Time: 04:54 mh7 Administered Medications: 04:52 Drug: morphine 2 mg Route: IVP; Site: right forearm; kd3 07:05 Follow up: Response: No adverse reaction; RASS: Alert and Calm (0) as6 04:53 Drug: Zofran (Ondansetron) 4 mg Route: IVP; Site: right forearm; kd3 07:05 Follow up: Response: No adverse reaction as6 05:00 Drug: Pepcid (famotidine) 20 mg Route: IVP; Site: right forearm; kd3 07:05 Follow up: Response: No adverse reaction as6 05:43 Drug: Calcium Chloride 1 grams Route: IVP; Site: right forearm; kd3 07:05 Follow up: Response: No adverse reaction as6 05:43 Drug: Insulin Regular Human 10 units {Co-Signature: as6 (Noah Grigsby RN).} Route: kd3 IVP; Site: right forearm; 07:05 Follow up: Response: No adverse reaction as6 06:02 Drug: Sodium Bicarbonate 1 amp Route: IVP; Site: right forearm; as6 07:06 Follow up: Response: No adverse reaction as6 06:02 Drug: Kayexalate (polystyrene) 15 grams Route: PO; as6 07:04 Drug: Rocephin (cefTRIAXone) 1 grams Route: IV; Rate: per protocol; Site: right forearm;as6 07:05 Drug: Flagyl (metroNIDAZOLE) 500 mg Volume: 100 ml; Route: IVPB; Rate: 200 ml/hr; as6 Infused Over: 30 mins; Site: right forearm; Disposition Summary: 07/09/21 06:34 Hospitalization Ordered Hospitalization Status: Inpatient Admission [facility] Provider: Farrukh Dawn Munir Condition: Stable [facility] Problem: new 7 Symptoms: have improved 7 Bed/Room Type: Standard [facility] Location: Telemetry/MedSurg (Inpatient)(07/09/21 16:42) Room Assignment: [facility](07/09/21 16:42) dw Diagnosis - Colitis mh7 - Nausea with vomiting, unspecified mh7 - Hyperkalemia mh7 - Type 2 diabetes mellitus with hyperglycemia mh7 Forms: - Medication Reconciliation Form mh7 - SBAR form 7 Signatures: Dispatcher [employer] Whitney Cordero RN RN dw Herbie Cerda MD MD cha Smirch, Shelby, RN RN ss Saurav Dorsey MD MD 7 Noah Grigsby RN RN as6 Cynthia Kay RN RN 3 Noah Grigsby RN as6 Corrections: (The following items were deleted from the chart) 11: 06:34 Telemetry/MedSurg (Inpatient) [facility] 11: 06:[address] [facility] 16:42 11: [facility] dw 16: 11: [facility]- dw
--- NOTE | 2021-07-09 06:35 | ER ---
Nurse's Notes [facility] Name: Tacho Lundy Age: 76 yrs Sex: Male : 1945 Arrival Date: 07/09/2021 Time: 04:20 Bed 2 Private MD: Diagnosis: Colitis;Nausea with vomiting, unspecified;Hyperkalemia;Type 2 diabetes mellitus with hyperglycemia Presentation: 07/09 04:20 Chief complaint: EMS states: toned out for nausea, vomiting, generalized pain. as6 Coronavirus screen: At this time, the client does not indicate any symptoms associated with coronavirus-19. Ebola Screen: No symptoms or risks identified at this time. Initial Sepsis Screen: Does the patient meet any 2 criteria? No. Patient's initial sepsis screen is negative. Does the patient have a suspected source of infection? No. Patient's initial sepsis screen is negative. Risk Assessment: Do you want to hurt yourself or someone else? Patient reports no desire to harm self or others. Onset of symptoms was July 08, 2021. 04:20 Method Of Arrival: EMS: [facility] as6 04:20 Acuity: CORRY 3 as6 Historical: - Allergies: 04:57 Vancomycin; kd3 04:22 Vancomycin; as6 - Home Meds: 04:22 aspirin 81 mg oral tab 81 mg daily [Active]; carvedilol 25 mg oral tab 1 tab daily as6 [Active]; ferrous sulfate 325 mg (65 mg iron) Oral tab 1 tab once daily [Active]; hydroxyzine HCl 25 mg Oral tab 1 tab 3 times per day [Active]; Novolog U-100 Insulin aspart 100 unit/mL Sub-Q soln [Active]; lactulose 20 gram/30 mL Oral soln 30 mL twice a day [Active]; lubiprostone 8 mcg oral cap 1 cap 2 times per day [Active]; magnesium oxide 400 mg magnesium Oral cap 400 mg twice a day [Active]; pantoprazole 40 mg oral TbEC 1 tab 2 times per day [Active]; rifaximin 550 mg oral tab 1 tab 2 times per day [Active]; sertraline 100 mg oral tab 1 tab once daily [Active]; - PMHx: 04:57 back surgery; Chronic pain; cirrhosis of liver; cirrhosis of liver; Diabetes - IDDM; kd3 Hernia; Hypertension; 04:22 back surgery; Chronic pain; cirrhosis of liver; cirrhosis of liver; Diabetes - IDDM; as6 Hernia; Hypertension; - Immunization history:: Adult Immunizations up to date, Client reports receiving the 2nd dose of the Covid vaccine. - Social history:: Smoking status: Patient denies any tobacco usage or history of. Smoking status: unknown. Screenin:55 Abuse screen: Denies threats or abuse. Denies injuries from another. Nutritional kd3 screening: Had unintentional weight loss of 10 pounds or more. Has had N/V for 3 or more days Intervention for positive screen: ED Physician notified. Tuberculosis screening: No symptoms or risk factors identified. Fall Risk IV access (20 points). Assessment: 04:54 Reassessment: PT CAREGIVER STATES THAT THE PT HAD A PARACENTESIS ON SATURDAY AND HASN'T kd3 FELT WELL SINCE. SYMPTOMS INCLUDE POOR APPETITE, ABDOMINAL PAIN AND NAUSEA. General: Appears uncomfortable, ill, Behavior is calm, cooperative. Pain: Complains of pain in left lower quadrant and right lower quadrant and suprapubic area. Vital Signs: 04:20 BP 153 / 77; Pulse 85; Resp 18 S; Temp 98.7(O); Pulse Ox 100% on R/A; Weight 81.65 kg as6 (R); Height 5 ft. 9 in. (175.26 cm) (R); Pain 10/10; 05:38 BP 165 / 60; Pulse 85; Resp 20 S; Pulse Ox 100% on R/A; as6 05:50 BP 156 / 61; Pulse 106; Resp 18; Pulse Ox 100% on R/A; kd3 04:20 Body Mass Index 26.58 (81.65 kg, 175.26 cm) as6 ED Course: 04:20 Patient arrived in ED. la1 04:20 Noah Grigsby, CINDY is Primary Nurse. as6 04:22 Saurav Dorsey MD is Attending Physician. mh7 04:22 Triage completed. as6 04:57 Inserted saline lock: 22 gauge in right forearm, using aseptic technique. Blood kd3 collected. 04:57 Arm band placed on right wrist. EKG completed in triage. Results shown to MD. EKG kd3 completed in triage. Results shown to MD. 04:57 Patient has correct armband on for positive identification. Placed in gown. Bed in low kd3 position. 05:17 CT Abd/Pelvis - Without Contrast In Process Unspecified. EDMS 06:33 Farrukh Dawn is Hospitalizing Provider. 7 09:23 Primary Nurse role handed off by Noah Grigsby, RN eb 18:12 No provider procedures requiring assistance completed. Patient admitted, IV remains in ww place. Administered Medications: 04:52 Drug: morphine 2 mg Route: IVP; Site: right forearm; kd3 07:05 Follow up: Response: No adverse reaction; RASS: Alert and Calm (0) as6 04:53 Drug: Zofran (Ondansetron) 4 mg Route: IVP; Site: right forearm; kd3 07:05 Follow up: Response: No adverse reaction as6 05:00 Drug: Pepcid (famotidine) 20 mg Route: IVP; Site: right forearm; kd3 07:05 Follow up: Response: No adverse reaction as6 05:43 Drug: Calcium Chloride 1 grams Route: IVP; Site: right forearm; kd3 07:05 Follow up: Response: No adverse reaction as6 05:43 Drug: Insulin Regular Human 10 units {Co-Signature: as6 (Noah Grigsby RN).} Route: kd3 IVP; Site: right forearm; 07:05 Follow up: Response: No adverse reaction as6 06:02 Drug: Sodium Bicarbonate 1 amp Route: IVP; Site: right forearm; as6 07:06 Follow up: Response: No adverse reaction as6 06:02 Drug: Kayexalate (polystyrene) 15 grams Route: PO; as6 07:04 Drug: Rocephin (cefTRIAXone) 1 grams Route: IV; Rate: per protocol; Site: right forearm;as6 07:05 Drug: Flagyl (metroNIDAZOLE) 500 mg Volume: 100 ml; Route: IVPB; Rate: 200 ml/hr; as6 Infused Over: 30 mins; Site: right forearm; Outcome: 06:34 Decision to Hospitalize by Provider. [facility] 18:13 Admitted to Med/surg room 208, with chart. ww 18:13 Condition: stable 18:13 Instructed on the need for admit. 18:13 Patient left the ED. ww Signatures: Dispatcher [employer] EDNH Pineda Diaz, SENIOR UI DESIGNER-C SENIOR UI DESIGNER-Cla1 Alannah Lamas Maurice, MD MD mh7 Noah Grigsby RN RN as6 Cynthia Kay RN RN kd3 Dedra Isaacs RN RN ww Noah Grigsby RN as6
[2021-07-09] MEDS ORDERED: CEFTRIAXONE 1000 MG/VIAL ONE (06:56)
[2021-07-09] MEDS ORDERED: METRONIDAZOLE 500mg IVPB 500 MG/100 ML BAG IV ONE ×2 (06:57→17:43)
[2021-07-09] MEDS: HEPARIN 5000 UNIT/ML 1 ML VIAL SQ SCH ×3 (10:16→20:18)
[2021-07-09] MEDS ORDERED: ONDANSETRON 4 MG/2 ML VIAL IV PRN (10:16)
--- NOTE | 2021-07-09 10:49 | P.HP ---
Certification for Inpatient Patient admitted to: Inpatient With expected LOS: >2 Midnights Practitioner: I am a practitioner with admitting privileges, knowledge of patient current condition, hospital course, and medical plan of care. Services: Services provided to patient in accordance with Admission requirements found in Title 42 Section 412.3 of the Code of Federal Regulations Patient History Date of Service: 07/09/21 Reason for admission: Abdominal pain History of Present Illness: 76-year-old gentleman with a history of liver cirrhosis, recurrent ascites receiving paracentesis on a regular basis presented to the emergency department due to abdominal pain of onset last night. Patient reports diarrhea of 2 days duration. No reported fever. He also reports loss of appetite but no nausea or vomiting. Patient hospitalized a couple of weeks ago for similar complaint and diagnosed with acute on chronic renal failure. Blood work in the ED shows hyperkalemia, elevated creatinine above baseline. CT abdomen pelvis suggested colitis. Patient given treatment for hyperkalemia IV sodium bicarb, Kayexalate, insulin and calcium gluconate. He is hospitalized for further management. Allergies vancomycin Allergy (Verified 06/17/21 04:00) Itching/Hives/Rash Home Medications: Ezetimibe [Zetia*] 10 mg PO DAILY 05/23/18 Magnesium Oxide [Mag 0X*] 400 mg PO BID 05/23/18 Furosemide [Lasix*] 20 mg PO DAILY 06/26/18 Aspirin 81 mg PO DAILY 06/09/19 Carvedilol [Coreg] 12.5 mg PO BID 06/09/19 Glucerna Shake [Glucerna*] 237 ml PO TID #90 can 06/11/19 Folic Acid 1 mg PO DAILY #90 tablet 12/01/20 Insulin Detemir [Levemir] 5 units SQ BEDTIME #1 bottle 12/01/20 Pantoprazole Sodium [Protonix] 40 mg PO DAILY #30 tablet. 12/01/20 Sucralfate [Carafate*] 1 gm PO ACHS #90 tab 12/01/20 Thiamine HCl [Vitamin B-1*] 100 mg PO DAILY #90 tablet 12/01/20 Ondansetron [Zofran (Odt)*] 4 mg PO Q6H PRN #10 tab 05/30/21 Hydrocodone 7.5/APAP 325 [[place] 7.5/325 mg*] 1 tab PO PRN PRN 06/29/21 Lactulose [Cephulac*] 30 ml PO TID #900 ucup 06/30/21 - Past Medical/Surgical History Diabetic: Yes -: CAD s/p Stent/ CABG -: DM -: HTN -: Cirrhosis -: CAD -: Alcoholic cirrhosis of the liver -: CKD 3/ Dr. Frazier -: CABG -: Laminectomy -: Back sx -: Skin cancer sx -: hemorrhoidectomy Psychosocial/ Personal History: Patient lives at home with his debilitated - Family History Father -: Heart disease Mother -: Heart disease Notes: PR - Social History Alcohol use: No CD- Drugs: No Caffeine use: Yes Review of Systems Other: Patient denies shortness of breath, no chest pain, no palpitation. Except as documented, all other systems reviewed and negative. Physical Examination - Physical Exam General: Alert, In no apparent distress, Oriented x3 HEENT: Atraumatic, PERRLA, Mucous membr. moist/pink, EOMI, Sclerae nonicteric Neck: Supple, JVD not distended Respiratory: Clear to auscultation bilaterally, Normal air movement Cardiovascular: No edema, Regular rate/rhythm, Normal S1 S2 Capillary refill: <2 Seconds Gastrointestinal: Normal bowel sounds, Soft and benign, Non-distended, No tenderness Musculoskeletal: No swelling, No tenderness Integumentary: Other (Multiple bruises on bilateral upper extremities.) Neurological: Normal speech, Other (Patient moves all extremities, no focal motor deficit) Lymphatics: No axilla or inguinal lymphadenopathy - Studies Laboratory Data (last 24 hrs) 07/09/21 04:50: PT 25.8 H, INR 2.31, APTT 42.4 H 07/09/21 04:44: Sodium 134 L, Potassium 6.1 H*, BUN 42 H, Creatinine 2.08 H, Glucose 272 H, Total Bilirubin 3.1 H, AST 52 H, ALT 29, Alkaline Phosphatase 258 H, Lipase 67 L 07/09/21 04:44: WBC 6.0 D, Hgb 10.8 L, Hct 32.5 L, Plt Count 68 L Assessment and Plan - Problems (Diagnosis) (1) Acute worsening of stage 3 chronic kidney disease Current Visit: Yes Status: Acute (2) Hyperkalemia Current Visit: Yes Status: Acute (3) Metabolic acidosis Current Visit: Yes Status: Acute (4) Colitis Current Visit: Yes Status: Acute - Plan Admit patient to the medical floor. Hydrate with D5 half-normal saline with bicarb drip to correct acidosis. Recheck BMP to follow hyperkalemia Nephrology consult IV antibiotics-Rocephin and Flagyl for colitis. Stool studies if the diarrhea persist. May need to check for stool for C. difficile given recurrent symptoms. Reconcile and continue other home medications. - Advance Directives Does patient have a Living Will: Yes Does patient have a Durable POA for Healthcare: Yes
[2021-07-09] MEDS: D5W 1,000 ML with NA BICARB 8.4% 100 MEQ IV SCH ×2 (11:30)
[2021-07-09] MEDS: METRONIDAZOLE 500mg IVPB 500 MG/100 ML BAG IV SCH (17:00)
[2021-07-09] MEDS: ACETAMINOPHEN 500 MG TAB PO PRN (20:17)
[2021-07-10] MEDS: HALOPERIDOL LACT 5 MG/ML INJ IV PRN ×2 (00:09→04:04)
[2021-07-10] MEDS: METRONIDAZOLE 500mg IVPB 500 MG/100 ML BAG IV SCH ×2 (00:10→09:00)
[2021-07-10] MEDS: ACETAMINOPHEN 500 MG TAB PO PRN ×4 (01:08→22:59)
[2021-07-10] MEDS: MELATONIN 5 MG TABLET PO PRN ×2 (01:33→22:59)
[2021-07-10] MEDS: HEPARIN 5000 UNIT/ML 1 ML VIAL SQ SCH ×3 (01:33→17:36)
[2021-07-10] MEDS: D5W 1,000 ML with NA BICARB 8.4% 100 MEQ IV SCH ×2 (03:55)
--- NOTE | 2021-07-10 08:59 | EKG ---
Test Date: 2021-07-09 Test Time: 04:56:06 Movie Theater Manager: KAL MEASUREMENT RESULTS: Intervals: Rate: 90 [place]: QRSD: 144 QT: 410 QTc: 501 [place]: P: [place]: QRS: -81 T: 36 INTERPRETIVE STATEMENTS: Atrial fibrillation Right bundle branch block Left anterior fascicular block Bifascicular block Septal infarct, age undetermined Abnormal ECG Compared to ECG 06/28/2021 13:34:30 Sinus rhythm no longer present Atrial premature complex(es) no longer present First degree AV block no longer present Bifascicular block still present Myocardial infarct finding still present Electronically Signed On 07-10-21 08:56:46 CDT by Nba Dumont
[2021-07-10] MEDS ORDERED: CEFTRIAXONE 1,000 MG in NA CHLORIDE 0.9% 50 ML IVPB SCH (09:00)
--- NOTE | 2021-07-10 09:52 | P.CNS ---
Date of Consult: 07/10/21 Reason for Consult: RACHEL/ CKD Requesting Physician: peter garza Chief Complaint: Abdominal pain History of Present Illness: 76-year-old gentleman with a history of liver cirrhosis, recurrent ascites receiving paracentesis on a regular basis presented to the emergency department due to abdominal pain of onset last night. Patient reports diarrhea of 2 days duration. No reported fever. He also reports loss of appetite but no nausea or vomiting. Patient hospitalized a couple of weeks ago for similar complaint and diagnosed with acute on chronic renal failure. Blood work in the ED shows hyperkalemia, elevated creatinine above baseline. CT abdomen pelvis suggested colitis. Patient given treatment for hyperkalemia IV sodium bicarb, Kayexalate, insulin and calcium gluconate. He is hospitalized for further management. 04:29 This 76 yrs old Unknown Male presents to ER via EMS with complaints of Abdominal Pain. mh7 04:29 The patient presents with abdominal pain in the lower abdomen. Onset: The mh7 symptoms/episode began/occurred 2 day(s) ago. The symptoms do not radiate. Associated signs and symptoms: Pertinent positives: nausea and vomiting, Pertinent negatives: blood in stools, chest pain, constipation, diarrhea, dysuria, fever, headache, hematuria, palpitations, shortness of breath, testicular pain, vomiting blood. The symptoms are described as intermittent, vague, waxing/waning. Modifying factors: The symptoms are alleviated by nothing, the symptoms are aggravated by nothing. Severity of pain: At its worst the pain was moderate yesterday, in the emergency department the pain is unchanged. 04:29 The patient has experienced similar episodes in the past, multiple times. Allergies vancomycin Allergy (Verified 07/09/21 18:38) Itching/Hives/Rash Home medications list reviewed: Yes Home Medications: Ezetimibe [Zetia*] 10 mg PO DAILY 05/23/18 Magnesium Oxide [Mag 0X*] 400 mg PO BID 05/23/18 Furosemide [Lasix*] 20 mg PO DAILY 06/26/18 Aspirin 81 mg PO DAILY 06/09/19 Carvedilol [Coreg] 12.5 mg PO BID 06/09/19 Glucerna Shake [Glucerna*] 237 ml PO TID #90 can 06/11/19 Folic Acid 1 mg PO DAILY #90 tablet 12/01/20 Insulin Detemir [Levemir] 5 units SQ BEDTIME #1 bottle 12/01/20 Pantoprazole Sodium [Protonix] 40 mg PO DAILY #30 tablet. 12/01/20 Sucralfate [Carafate*] 1 gm PO ACHS #90 tab 12/01/20 Thiamine HCl [Vitamin B-1*] 100 mg PO DAILY #90 tablet 12/01/20 Ondansetron [Zofran (Odt)*] 4 mg PO Q6H PRN #10 tab 05/30/21 Hydrocodone 7.5/APAP 325 [Manter 7.5/325 mg*] 1 tab PO BID 06/29/21 Lactulose [Cephulac*] 30 ml PO TID #900 ucup 06/30/21 Cefdinir [Cefdinir*] 2 cap PO DAILY 07/10/21 Mupirocin Oint [Bactroban 2% Ointment*] 1 cecile TOP BID 07/10/21 hydrOXYzine HCL [Atarax*] 25 mg PO DAILY 07/10/21 - Past Medical/Surgical History Diabetic: Yes -: CAD s/p Stent/ CABG -: DM -: HTN -: Cirrhosis -: CAD -: Alcoholic cirrhosis of the liver -: CKD 3/ Dr. Frazier -: CABG -: Laminectomy -: Back sx -: Skin cancer sx -: hemorrhoidectomy Psychosocial/ Personal History: Patient lives at home with his debilitated - Family History Father Medical History: Heart disease Mother Medical History: Heart disease Notes: MA - Social History Smoking Status: Unknown if ever smoked Alcohol use: No CD- Drugs: No Caffeine use: Yes Place of Residence: Home Review of Systems 10-point ROS is otherwise unremarkable General: Weakness, Malaise Gastrointestinal: Nausea, Abdominal Pain Physical Examination Temp Pulse Resp BP Pulse Ox 97 F 80 16 109/56 L 100 07/10/21 08:00 07/10/21 08:00 07/10/21 08:00 07/10/21 08:00 07/10/21 08:00 General: In no apparent distress, Oriented x3, Cooperative HEENT: Atraumatic Neck: Supple Respiratory: Normal air movement Cardiovascular: No edema, Regular rate/rhythm Gastrointestinal: Non-distended, Tenderness Musculoskeletal: No clubbing, No contractures Integumentary: No rashes, No cyanosis Blood work reviewed in the chart. Imagings Data: EXAM DESCRIPTION: CT - Abdomen Pelvis Wo Contrast - 07/09/2021 6:39 am CLINICAL HISTORY: The patient is 76 years old and is Male; Abdominal pain, acute, nonlocalized TECHNIQUE: Axial computed tomography images of the abdomen and pelvis without intravenous contrast. Sagittal and coronal reformatted images were created and reviewed. This CT exam was performed using one or more of the following dose reduction techniques: automated exposure control, adjustment of the mA and/or kV according to patient size, and/or use of iterative reconstruction technique. COMPARISON: CT abdomen pelvis June 28, 2021. FINDINGS: Lung bases: Unremarkable. No mass. No consolidation. Pleural space: Right pleural effusion again noted, slightly decreased compared with the prior exam. Heart: No cardiomegaly. Moderate coronary artery calcifications. Mediastinum: Moderately sized hiatal hernia containing stomach, fat and ascites. ABDOMEN: Liver: Small nodular liver suggesting hepatic cirrhosis, unchanged. Gallbladder and bile ducts: Cholelithiasis. No ductal dilation. Pancreas: Fatty infiltration of the pancreas. No ductal dilation. Spleen: Splenomegaly, unchanged. Adrenals: Unremarkable. No mass. Kidneys and ureters: Unremarkable. No obstructing stones. No hydronephrosis. Stomach and bowel: The colon is not well distended and there may be colon wall thickening. No small bowel dilatation or obstruction. PELVIS: Appendix: No findings to suggest acute appendicitis. Bladder: Unremarkable. No stones. Reproductive: Unremarkable as visualized. ABDOMEN and PELVIS: Intraperitoneal space: Moderate ascites, stable to slightly decreased compared with the prior exam. No free air. Bones/joints: Sternal closure wires. Prior lumbar surgery with posterior fusion hardware. Multilevel degenerative changes in the lower thoracic spine. No acute fracture. No dislocation. Soft tissues: Right scrotal hernia again noted containing ascites. Vasculature: Moderate atherosclerotic calcification. No abdominal aortic aneurysm. Lymph nodes: No pathologically enlarged lymph nodes. IMPRESSION: 1. Moderate ascites, stable to slightly decreased compared with the prior exam. 2. The colon is not well distended and there may be colon wall thickening. This may be secondary to mild colitis or wall thickening from hypoproteinemia. 3. Right scrotal hernia again noted containing ascites. 4. Cholelithiasis. 5. Small nodular liver suggesting hepatic cirrhosis, unchanged. 6. Splenomegaly, unchanged. 7. Right pleural effusion again noted, slightly decreased compared with the prior exam. 8. Moderately sized hiatal hernia containing stomach, fat and ascites. 9. Additional non-emergent findings as above. Conclusions/Impression: RACHEL in the setting of hypotension CKD III -No NSAIDs Hyponatremia -Encourage nutrition Hyperkalemia -Low potassium diet Acidosis -Monitor level HypoPO4 -Encourage nutrition -Replete PO4 HTN with CKD complicated by hypotension -Coreg prn LE Edema -Hold diuretics at this time DM II with CKD -RISS Moderate malnutrition -Encourage nutrition Anemia in chronic illness -Monitor H&H Alcoholic cirrhosis with ascites Hepatic encephalopathy -Continue Lactulose Thank you kindly for the consultation.
[2021-07-10] MEDS ORDERED: LACTULOSE 20 GM/30 ML UCUP PO ONE (10:00)
[2021-07-10 10:22] LABS: Absolute Lymphocytes (CBC) 0.6 K/uL (0.7-4.9); Hematocrit 27.6 % (39.6-49.0); Lymphocytes % 13.9 % (15.3-44.8); MPV 9.8 fL (7.6-11.3); RBC Red Blood Cell Count 2.92 M/uL (4.33-5.43)
[2021-07-10 10:51] LABS: Magnesium 1.9 mg/dL (1.8-2.4); Phosphorus 2.4 mg/dL (2.5-4.9); Potassium 3.9 mmol/L (3.5-5.1)
[2021-07-10] MEDS ORDERED: ONDANSETRON 4 MG (ODT) TAB PO ONE (11:00)
[2021-07-10] MEDS ORDERED: ASPIRIN 81 MG CHEWABLE TABLET PO ONE (11:00)
[2021-07-10] MEDS ORDERED: PANTOPRAZOLE 40MG TABLET PO ONE (11:00)
[2021-07-10] MEDS ORDERED: MAGNESIUM OXIDE 400 MG TAB PO ONE (11:00)
[2021-07-10] MEDS ORDERED: carvediloL 12.5 MG TAB PO ONE (11:00)
[2021-07-10] MEDS ORDERED: CEFDINIR 300 MG CAP PO ONE (11:00)
[2021-07-10] MEDS ORDERED: HYDROCODONE/APAP 7.5/325 MG TAB PO ONE (11:00)
[2021-07-10] MEDS ORDERED: FOLIC ACID 1 MG TABLET PO ONE (11:00)
[2021-07-10] MEDS ORDERED: D50W 25 GM/50 ML SYRINGE IV PRN (13:54)
[2021-07-10] MEDS ORDERED: GLUCAGON 1 MG/VIAL IM PRN (13:54)
[2021-07-10] MEDS ORDERED: D10W 125 ML IV PRN (14:01)
[2021-07-10] MEDS ORDERED: ONDANSETRON 4 MG (ODT) TAB PO PRN (14:18)
[2021-07-10] MEDS: NA CHLORIDE 0.9% 1,000 ML IV SCH (15:15)
--- NOTE | 2021-07-10 15:27 | RAD REPORT ---
EXAM DESCRIPTION: CT - Abdomen Pelvis Wo Contrast - 07/09/2021 6:39 am CLINICAL HISTORY: The patient is 76 years old and is Male; Abdominal pain, acute, nonlocalized TECHNIQUE: Axial computed tomography images of the abdomen and pelvis without intravenous contrast. Sagittal and coronal reformatted images were created and reviewed. This CT exam was performed usi ng one or more of the following dose reduction techniques: automated exposure control, adjustment o f the mA and/or kV according to patient size, and/or use of iterative reconstruction technique. COMPARISON: CT abdomen pelvis June 28, 2021. FINDINGS: Lung bases: Unremarkable. No mass. No consolidation. Pleural space: Right pleural effusion again noted, slightly decreased compared with the prior ex am. Heart: No cardiomegaly. Moderate coronary artery calcifications. Mediastinum: Moderately sized hiatal hernia containing stomach, fat and ascites. ABDOMEN: Liver: Small nodular liver suggesting hepatic cirrhosis, unchanged. Gallbladder and bile ducts: Cholelithiasis. No ductal dilation. Pancreas: Fatty infiltration of the pancreas. No ductal dilation. Spleen: Splenomegaly, unchanged. Adrenals: Unremarkable. No mass. Kidneys and ureters: Unremarkable. No obstructing stones. No hydronephrosis. Stomach and bowel: The colon is not well distended and there may be colon wall thickening. No small bowel dilatation or obstruction. PELVIS: Appendix: No findings to suggest acute appendicitis. Bladder: Unremarkable. No stones. Reproductive: Unremarkable as visualized. ABDOMEN and PELVIS: Intraperitoneal space: Moderate ascites, stable to slightly decreased compared with the prior ex am. No free air. Bones/joints: Sternal closure wires. Prior lumbar surgery with posterior fusion hardware. Multil evel degenerative changes in the lower thoracic spine. No acute fracture. No dislocation. Soft tissues: Right scrotal hernia again noted containing ascites. Vasculature: Moderate atherosclerotic calcification. No abdominal aortic aneurysm. Lymph nodes: No pathologically enlarged lymph nodes. IMPRESSION: 1. Moderate ascites, stable to slightly decreased compared with the prior exam. 2. The colon is not well distended and there may be colon wall thickening. This may be secondary to mild colitis or wall thickening from hypoproteinemia. 3. Right scrotal hernia again noted containing ascites. 4. Cholelithiasis. 5. Small nodular liver suggesting hepatic cirrhosis, unchanged. 6. Splenomegaly, unchanged. 7. Right pleural effusion again noted, slightly decreased compared with the prior exam. 8. Moderately sized hiatal hernia containing stomach, fat and ascites. 9. Additional non-emergent findings as above. Electronically signed by: Johanna Perdue MD 07/09/2021 5:59 AM CDT Due to temporary technical issues with the PACS/Fluency reporting system, reports are being signed by the in house radiologist without review as a courtesy to ensure prompt reporting. The interpreting r adiologist is fully responsible for the content of the report.
[2021-07-10] MEDS: SUCRALFATE 1 GM TABLET PO SCH ×2 (17:35→22:42)
[2021-07-10] MEDS: INSULIN -REGULAR HUMAN 50 UNIT/0.5 ML ML SQ SCH ×2 (17:36→22:42)
[2021-07-10] MEDS: GLUCERNA SHAKE 237 ML CAN PO SCH (21:00)
[2021-07-10] MEDS: LACTULOSE 20 GM/30 ML UCUP PO SCH (22:42)
[2021-07-10] MEDS: carvediloL 12.5 MG TAB PO SCH (22:47)
[2021-07-11] MEDS: HEPARIN 5000 UNIT/ML 1 ML VIAL SQ SCH ×2 (01:12→10:03)
[2021-07-11 05:51] LABS: Absolute Lymphocytes (CBC) 0.7 K/uL (0.7-4.9); Hematocrit 21.1 % (39.6-49.0); Lymphocytes % 25.1 % (15.3-44.8); MPV 10.5 fL (7.6-11.3); RBC Red Blood Cell Count 2.21 M/uL (4.33-5.43)
[2021-07-11 05:52] LABS: Potassium 4.1 mmol/L (3.5-5.1)
[2021-07-11 06:38] LABS: Blood Morphology Comment NOTED (NOT SEEN); Hypochromasia 1+; Platelet Estimate DECR
[2021-07-11] MEDS: INSULIN -REGULAR HUMAN 50 UNIT/0.5 ML ML SQ SCH ×4 (07:30→21:00)
[2021-07-11] MEDS ORDERED: CEFDINIR 300 MG CAP PO SCH (09:00)
[2021-07-11] MEDS: LACTULOSE 20 GM/30 ML UCUP PO SCH ×3 (09:00→20:34)
[2021-07-11] MEDS ORDERED: hydrOXYzine HCL 25 MG TAB PO SCH (09:00)
[2021-07-11] MEDS ORDERED: HYDROCODONE/APAP 7.5/325 MG TAB PO SCH (09:00)
[2021-07-11] MEDS: GLUCERNA SHAKE 237 ML CAN PO SCH ×3 (09:00→21:00)
[2021-07-11] MEDS: ASPIRIN 81 MG CHEWABLE TABLET PO SCH (10:01)
[2021-07-11] MEDS: FOLIC ACID 1 MG TABLET PO SCH (10:01)
[2021-07-11] MEDS: carvediloL 12.5 MG TAB PO SCH ×2 (10:02→20:35)
[2021-07-11] MEDS: SUCRALFATE 1 GM TABLET PO SCH ×4 (10:02→20:39)
[2021-07-11] MEDS: PANTOPRAZOLE 40MG TABLET PO SCH (10:02)
[2021-07-11] MEDS: MEDIHONEY 44 ML TOPICAL TUBE TOP SCH (10:03)
[2021-07-11] MEDS: THIAMINE HCL 100 MG TABLET PO SCH (10:04)
[2021-07-11] MEDS ORDERED: THIAMINE HCL 100 MG TABLET PO ONE (11:00)
--- NOTE | 2021-07-11 16:42 | RAD REPORT ---
EXAM DESCRIPTION: MRI - Foot Right Wo Cont - 07/11/2021 4:33 pm Wo Cont - 07/11/2021 4:23 pm CLINICAL HISTORY: osteomyelitis Foot pain and swelling COMPARISON: Foot Right Wo Cont dated 07/10/2021; Foot Right 3 View dated 07/05/2021; Paracentesis Proc G uidance dated 07/04/2021 FINDINGS: Soft tissue edema is present with swelling involving the great toe. The distal most aspect of the great toe distal phalanx demonstrates diminished T1 signal and elevated T2 signal suggesting early osteomyelitis. No soft tissue mass seen. No hematoma. No fracture or subluxation. IMPRESSION: Early findings of osteomyelitis distal most aspect of the great toe.
[2021-07-11] MEDS: NA CHLORIDE 0.9% 1,000 ML IV SCH (17:10)
[2021-07-11 17:14] LABS: Absolute Lymphocytes (CBC) 0.8 K/uL (0.7-4.9); Hematocrit 24.4 % (39.6-49.0); Lymphocytes % 27.7 % (15.3-44.8); MPV 10.7 fL (7.6-11.3); RBC Red Blood Cell Count 2.54 M/uL (4.33-5.43)
--- NOTE | 2021-07-11 19:42 | P.PN ---
Date of Service: 07/11/21 Vital Signs Temp Pulse Resp BP Pulse Ox 97.3 F 77 18 98/50 L 99 07/11/21 16:00 07/11/21 16:00 07/11/21 16:00 07/11/21 16:00 07/11/21 16:00 Medications Acetaminophen (Acetaminophen 500 Mg Tab) 500 mg PO Q4HP PRN PRN Reason: TEMP > 100' F Last Admin: 07/10/21 22:59 Dose: 500 mg Documented by: Aspirin (Aspirin 81 Mg Chewable Tablet) 81 mg PO DAILY [facility] Last Admin: 07/11/21 10:01 Dose: 81 mg Documented by: Carvedilol (Carvedilol 12.5 Mg Tab) 12.5 mg PO BID [facility] Last Admin: 07/11/21 10:02 Dose: 12.5 mg Documented by: Emollient Gel (Medihoney 44 Ml Topical Tube) 1 appl TOP DAILY [facility] Last Admin: 07/11/21 10:03 Dose: 1 appl Documented by: Enteral Nutritional Formula (Glucerna Shake 237 Ml Can) 237 ml PO TID [facility] Last Admin: 07/11/21 14:00 Dose: Not Given Documented by: Folic Acid (Folic Acid 1 Mg Tablet) 1 mg PO DAILY [facility] Last Admin: 07/11/21 10:01 Dose: 1 mg Documented by: Glucagon (Glucagon 1 Mg/Vial) 1 mg IM 1X PRN; Protocol PRN Reason: HYPOGLYCEMIA Haloperidol Lactate (Haloperidol Lact 5 Mg/Ml Inj) 2 mg IV Q4H PRN PRN Reason: AGITATION Last Admin: 07/10/21 04:04 Dose: 2 mg Documented by: Hydroxyzine HCl (Hydroxyzine Hcl 25 Mg Tab) 25 mg PO BEDTIME [facility] Dextrose (Dextrose 10% Water Iv Soln.) 125 mls @ 0 mls/hr IV PRN PRN; Protocol PRN Reason: HYPOGLYCEMIA Ceftriaxone Sodium 1,000 mg/ (Sodium Chloride) 50 mls @ 100 mls/hr IVPB DAILY [facility]; Protocol Insulin Human Regular (Insulin -Regular Human 50 Unit/0.5 Ml Ml) 0 unit SQ ACHS [facility]; Protocol Last Admin: 07/11/21 17:10 Dose: 3 unit Documented by: Lactulose (Lactulose 20 Gm/30 Ml Ucup) 20 gm PO TID [facility] Last Admin: 07/11/21 14:00 Dose: Not Given Documented by: Melatonin (Melatonin 5 Mg Tablet) 10 mg PO BEDTIME PRN PRN PRN Reason: INSOMNIA Last Admin: 07/10/21 22:59 Dose: 10 mg Documented by: Ondansetron HCl (Ondansetron 4 Mg/2 Ml Vial) 4 mg IV Q6HP PRN PRN Reason: NAUSEA / VOMITING Ondansetron HCl (Ondansetron 4 Mg (Odt) Tab) 4 mg PO Q6H PRN PRN Reason: NAUSEA / VOMITING Pantoprazole Sodium (Pantoprazole 40mg Tablet) 40 mg PO DAILY [facility]; Protocol Last Admin: 07/11/21 10:02 Dose: 40 mg Documented by: Sodium Chloride (Flush Normal Saline 10 Ml) 10 ml IV BID [facility] Last Admin: 07/11/21 09:00 Dose: 10 ml Documented by: Sucralfate (Sucralfate 1 Gm Tablet) 1 gm PO ACHS [facility] Last Admin: 07/11/21 17:10 Dose: 1 gm Documented by: Thiamine HCl (Thiamine Hcl 100 Mg Tablet) 100 mg PO DAILY [facility] Last Admin: 07/11/21 10:04 Dose: 100 mg Documented by: Assessment/ Plan: Nephrology No dyspnea No chest pain Feeling better today No acute events overnight Vitals, medications, blood work and imaging reviewed in the chart. General: In no apparent distress, Oriented x3, Cooperative HEENT: Atraumatic Neck: Supple Respiratory: Normal air movement Cardiovascular: No edema, Regular rate/rhythm Gastrointestinal: Non-distended, NT Musculoskeletal: No clubbing, No contractures Integumentary: No rashes, No cyanosis Blood work reviewed in the chart. Imagings Data: EXAM DESCRIPTION: CT - Abdomen Pelvis Wo Contrast - 07/09/2021 6:39 am CLINICAL HISTORY: The patient is 76 years old and is Male; Abdominal pain, acute, nonlocalized TECHNIQUE: Axial computed tomography images of the abdomen and pelvis without intravenous contrast. Sagittal and coronal reformatted images were created and reviewed. This CT exam was performed using one or more of the following dose r eduction techniques: automated exposure control, adjustment of the mA and/or kV according to patient size, and/or use of iterative reconstruction technique. COMPARISON: CT abdomen pelvis June 28, 2021. FINDINGS: Lung bases: Unremarkable. No mass. No consolidation. Pleural space: Right pleural effusion again noted, slightly decreased compared with the prior exam. Heart: No cardiomegaly. Moderate coronary artery calcifications. Mediastinum: Moderately sized hiatal hernia containing stomach, fat and ascites. ABDOMEN: Liver: Small nodular liver suggesting hepatic cirrhosis, unchanged. Gallbladder and bile ducts: Cholelithiasis. No ductal dilation. Pancreas: Fatty infiltration of the pancreas. No ductal dilation. Spleen: Splenomegaly, unchanged. Adrenals: Unremarkable. No mass. Kidneys and ureters: Unremarkable. No obstructing stones. No hydronephrosis. Stomach and bowel: The colon is not well distended and there may be colon wall thickening. No small bowel dilatation or obstruction. PELVIS: Appendix: No findings to suggest acute appendicitis. Bladder: Unremarkable. No stones. Reproductive: Unremarkable as visualized. ABDOMEN and PELVIS: Intraperitoneal space: Moderate ascites, stable to slightly decreased compared with the prior exam. No free air. Bones/joints: Sternal closure wires. Prior lumbar surgery with posterior fusion hardware. Multilevel degenerative changes in the lower thoracic spine. No acute fracture. No dislocation. Soft tissues: Right scrotal hernia again noted containing ascites. Vasculature: Moderate atherosclerotic calcification. No abdominal aortic aneurysm. Lymph nodes: No pathologically enlarged lymph nodes. IMPRESSION: 1. Moderate ascites, stable to slightly decreased compared with the prior exam. 2. The colon is not well distended and there may be colon wall thickening. This may be secondary to mild colitis or wall thickening from hypoproteinemia. 3. Right scrotal hernia again noted containing ascites. 4. Cholelithiasis. 5. Small nodular liver suggesting hepatic cirrhosis, unchanged. 6. Splenomegaly, unchanged. 7. Right pleural effusion again noted, slightly decreased compared with the prior exam. 8. Moderately sized hiatal hernia containing stomach, fat and ascites. 9. Additional non-emergent findings as above. Conclusions/Impression: RACHEL in the setting of hypotension CKD III -No NSAIDs Hyponatremia -Encourage nutrition Hyperkalemia -Low potassium diet Acidosis -Monitor level HypoPO4 -Encourage nutrition -Replete PO4 prn HTN with CKD complicated by hypotension -Coreg prn LE Edema -Hold diuretics at this time DM II with CKD -RISS Moderate malnutrition -Encourage nutrition Anemia in chronic illness -Monitor H&H Alcoholic cirrhosis with ascites Hepatic encephalopathy -Continue Lactulose
[2021-07-11] MEDS ORDERED: NA CHLORIDE 0.9% 250 ML IV ONE (20:00)
[2021-07-11] MEDS ORDERED: CEFTRIAXONE 1000 MG/VIAL ONE (20:29)
[2021-07-11] MEDS ORDERED: NA CHLORIDE 0.9% 50 ML ONE (20:32)
[2021-07-11] MEDS: CEFTRIAXONE 1,000 MG in NA CHLORIDE 0.9% 50 ML IVPB SCH (20:37)
[2021-07-11] MEDS: hydrOXYzine HCL 25 MG TAB PO SCH (20:39)
--- NOTE | 2021-07-11 21:11 | PN ---
Date of Progress Note: 07/11/2021 The patient's condition continues to deteriorate somewhat. He has had difficulty with day and night and syndrome. Possibility of it being reaction to the Atarax and hydrocodone to be conside red, although would start these at night and in fact, apparently has not had as much pain, although jamison guerra does get very anxious and has pulled out his IVs and would not do the MRI yesterday. The MRI is go ing to be done this afternoon. His abdomen continues to build up some fluid. However, it is not mar ked and not causing discomfort. We, therefore, will hold off on his paracentesis. The gangrene is d ry, it is basically status quo. The cellulitis has improved on the antibiotics which were also given initially for diverticulitis and cellulitis and he is maintained on cefdinir; however, he developed a pancytopenia possibly secondary to heparin, so this will be discontinued. [facility] after we obtain the MRI results. Suspicious for the osteo. LTAC was als o considered in disposition. This was discussed with his family. We will repeat the CBC this aftern oon as well. HR/MODL Voice ID: [id number] Report ID: [id number]
[2021-07-11 21:24] LABS: Blood Morphology Comment NOT SEEN (NOT SEEN); Platelet Estimate DECR
[2021-07-12] MEDS: MELATONIN 5 MG TABLET PO PRN (01:27)
[2021-07-12] MEDS: ACETAMINOPHEN 500 MG TAB PO PRN ×2 (01:27→21:32)
[2021-07-12 06:07] LABS: Magnesium 1.7 mg/dL (1.8-2.4); Phosphorus 2.5 mg/dL (2.5-4.9); Potassium 4.2 mmol/L (3.5-5.1); Uric Acid 9.6 mg/dL (3.5-7.2)
[2021-07-12 06:39] LABS: Absolute Lymphocytes (CBC) 0.5 K/uL (0.7-4.9); Hematocrit 23.9 % (39.6-49.0); Lymphocytes % 23.8 % (15.3-44.8); MPV 10.5 fL (7.6-11.3); RBC Red Blood Cell Count 2.48 M/uL (4.33-5.43)
[2021-07-12] MEDS: SUCRALFATE 1 GM TABLET PO SCH ×4 (07:30→21:23)
[2021-07-12] MEDS: INSULIN -REGULAR HUMAN 50 UNIT/0.5 ML ML SQ SCH ×4 (07:30→21:00)
[2021-07-12] MEDS ORDERED: NA CHLORIDE 0.9% 1,000 ML IV PRN (07:33)
[2021-07-12] MEDS ORDERED: NA CHLORIDE 0.9% 250 ML IV PRN (07:37)
[2021-07-12 07:52] LABS: Blood Morphology Comment NOTED (NOT SEEN); Platelet Estimate DECR
[2021-07-12 07:53] LABS: Burr Cells FEW; Hypochromasia 1+; Ovalocytes 1+; Poikilocytosis 1+
[2021-07-12] MEDS: CEFTRIAXONE 1,000 MG in NA CHLORIDE 0.9% 50 ML IVPB SCH (09:00)
[2021-07-12] MEDS: FOLIC ACID 1 MG TABLET PO SCH ×2 (09:00→11:08)
[2021-07-12] MEDS: GLUCERNA SHAKE 237 ML CAN PO SCH ×3 (09:00→21:26)
[2021-07-12] MEDS: carvediloL 12.5 MG TAB PO SCH (09:00)
[2021-07-12] MEDS: PANTOPRAZOLE 40MG TABLET PO SCH (09:00)
[2021-07-12] MEDS: LACTULOSE 20 GM/30 ML UCUP PO SCH ×3 (09:00→21:00)
[2021-07-12] MEDS: MEDIHONEY 44 ML TOPICAL TUBE TOP SCH (09:00)
[2021-07-12] MEDS: THIAMINE HCL 100 MG TABLET PO SCH (09:00)
[2021-07-12] MEDS ORDERED: CEFTRIAXONE 1000 MG/VIAL ONE (10:50)
[2021-07-12] MEDS ORDERED: NA CHLORIDE 0.9% 50 ML ONE (10:52)
[2021-07-12] MEDS: ASPIRIN 81 MG CHEWABLE TABLET PO SCH (11:03)
[2021-07-12 15:35] LABS: Protime INR 2.62
[2021-07-12] MEDS ORDERED: ALBUMIN HUMAN 25% 100 ML IV ONE ×2 (16:00→20:00)
--- NOTE | 2021-07-12 18:53 | CON ---
Date of Consultation: 07/12/2021 Reason For Consultation: Right great toe gangrene and osteomyelitis. History Of Present Illness: The patient is a 76-year-old gentleman who was admitted on the with abdominal pain. He has a history of cirrhosis and recurrent ascites requiring paracentesis on a regu lar basis. After he was admitted and his treatment was began, the patient was found to have a right great toe gangrene with redness surrounding it. He had an MRI done which showed osteomyelitis and we are asked to evaluate the patient. He is awake, alert, and denies any fever or chills. No purulent discharge. Complaining of minimal pain in the right great toe. He states that the redness and the warmth and edema have improved markedly. No sore throat, runny nose, cough, headaches, or dizziness. No chest pain. Review of Systems: Otherwise unremarkable. Past Medical History: Significant for coronary artery disease, diabetes, hypertension, liver cirrhos is. Past Surgical History: CABG, laminectomy, back surgery, skin cancer surgery, hemorrhoidectomy and st ent placement. Allergies: INCLUDE VANCOMYCIN. Social History: The patient currently does not smoke or drink alcohol. Family History: Significant for heart disease and NM. Physical Examination: Vital Signs: Stable. His blood pressure is systolic of around 98. The patient is not tachycardic. He is afebrile. General: The patient is awake alert. Head and Neck: No neck masses. No JVD. Throat clear. Neck is supple. Chest: Clear. Heart: S1, S2. Abdomen: Distended, soft with percussion consistent with ascites. Extremities: Diminished dorsalis pedis and posterior tibial pulses. On the right great toe in the t ip the patient has approximately a 1 cm2 area of dry gangrene. The redness, edema, and warmth had ma rkedly improved. Neuro: Nonfocal. Laboratory Data: Reviewed. The patient has a white count of 2.08, H and H 8.1 and 23.9, platelets a re 44,000 and there is no left shift currently. Coags are significant for INR of 2.31. Chemistry re viewed. BUN is 40, creatinine is 2.22. Ammonia level is less than 15. The patient had a foot MRI w hich was consistent with early findings of osteomyelitis in the distal most aspect of the great toe. The patient had a pelvic CT and abdominal CT which showed moderate ascites, right scrotal hernia, ch olelithiasis, hepatic cirrhosis, splenomegaly, hiatal hernia. 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 Recommendations: As the patient is being medically optimized for discharge, I would agree to continu e him on IV antibiotics while in the hospital. At which point, the patient can be converted to a PIC C line and then continue IV antibiotics at home. The other option is to try him on a short regimen o f oral antibiotics and see how he responds. The reason for this is because with his coagulopathy I a m concerned the patient may have bleeding issues when PICC line is placed. Should the PICC line be d ecided to be used on this patient, consideration should be given to platelet infusion prior to the pr ocedure as well as FFP. This opinion would be best served by Hematology consultation. The plan of t his complex patient was discussed in detail with Dr. Martin. I will follow the patient while in the hospital. /MODL Voice ID: [id number] Report ID: [id number]
[2021-07-12 19:58] LABS: Absolute Lymphocytes (CBC) 0.4 K/uL (0.7-4.9); Hematocrit 24.9 % (39.6-49.0); Lymphocytes % 17.4 % (15.3-44.8); RBC Red Blood Cell Count 2.57 M/uL (4.33-5.43)
--- NOTE | 2021-07-12 20:54 | P.PN ---
Date of Service: 07/12/21 Vital Signs Temp Pulse Resp BP Pulse Ox 99.2 F 62 18 116/57 L 96 07/12/21 16:00 07/12/21 16:00 07/12/21 16:00 07/12/21 16:00 07/12/21 16:00 Medications Acetaminophen (Acetaminophen 500 Mg Tab) 500 mg PO Q4HP PRN PRN Reason: TEMP > 100' F Last Admin: 07/12/21 01:27 Dose: 500 mg Documented by: Aspirin (Aspirin 81 Mg Chewable Tablet) 81 mg PO DAILY [facility] Last Admin: 07/12/21 11:03 Dose: Not Given Documented by: Carvedilol (Carvedilol 12.5 Mg Tab) 12.5 mg PO BID [facility] Last Admin: 07/12/21 09:00 Dose: Not Given Documented by: Emollient Gel (Medihoney 44 Ml Topical Tube) 1 appl TOP DAILY [facility] Last Admin: 07/12/21 09:00 Dose: 1 appl Documented by: Enteral Nutritional Formula (Glucerna Shake 237 Ml Can) 237 ml PO TID [facility] Last Admin: 07/12/21 14:00 Dose: 237 ml Documented by: Folic Acid (Folic Acid 1 Mg Tablet) 1 mg PO DAILY [facility] Last Admin: 07/12/21 11:08 Dose: 1 mg Documented by: Glucagon (Glucagon 1 Mg/Vial) 1 mg IM 1X PRN; Protocol PRN Reason: HYPOGLYCEMIA Haloperidol Lactate (Haloperidol Lact 5 Mg/Ml Inj) 2 mg IV Q4H PRN PRN Reason: AGITATION Last Admin: 07/10/21 04:04 Dose: 2 mg Documented by: Hydroxyzine HCl (Hydroxyzine Hcl 25 Mg Tab) 25 mg PO BEDTIME [facility] Last Admin: 07/11/21 20:39 Dose: 25 mg Documented by: Dextrose (Dextrose 10% Water Iv Soln.) 125 mls @ 0 mls/hr IV PRN PRN; Protocol PRN Reason: HYPOGLYCEMIA Ceftriaxone Sodium 1,000 mg/ (Sodium Chloride) 50 mls @ 100 mls/hr IVPB DAILY [facility]; Protocol Last Admin: 07/12/21 09:00 Dose: 50 mls Documented by: Sodium Chloride (Sodium Chloride) 250 mls @ 999 mls/hr IV Q15M PRN PRN Reason: HYPOTENSION Albumin Human (Albumin 25% 25 Gm) 100 mls @ 100 mls/hr IV 1X ONE Stop: 07/12/21 20:59 Insulin Human Regular (Insulin -Regular Human 50 Unit/0.5 Ml Ml) 0 unit SQ [facility]; Protocol Last Admin: 07/12/21 16:30 Dose: 3 unit Documented by: Lactulose (Lactulose 20 Gm/30 Ml Ucup) 20 gm PO TID [facility] Last Admin: 07/12/21 14:00 Dose: 20 gm Documented by: Melatonin (Melatonin 5 Mg Tablet) 10 mg PO BEDTIME PRN PRN PRN Reason: INSOMNIA Last Admin: 07/12/21 01:27 Dose: 10 mg Documented by: Ondansetron HCl (Ondansetron 4 Mg/2 Ml Vial) 4 mg IV Q6HP PRN PRN Reason: NAUSEA / VOMITING Pantoprazole Sodium (Pantoprazole 40mg Tablet) 40 mg PO DAILY [facility]; Protocol Last Admin: 07/12/21 09:00 Dose: 40 mg Documented by: Sodium Chloride (Flush Normal Saline 10 Ml) 10 ml IV BID [facility] Last Admin: 07/12/21 09:00 Dose: 10 ml Documented by: Sucralfate (Sucralfate 1 Gm Tablet) 1 gm PO [facility] Last Admin: 07/12/21 16:41 Dose: 1 gm Documented by: Thiamine HCl (Thiamine Hcl 100 Mg Tablet) 100 mg PO DAILY [facility] Last Admin: 07/12/21 09:00 Dose: 100 mg Documented by: Assessment/ Plan: Nephrology No dyspnea No chest pain Feeling better today No acute events overnight Vitals, medications, blood work and imaging reviewed in the chart. General: In no apparent distress, Oriented x3, Cooperative HEENT: Atraumatic Neck: Supple Respiratory: Normal air movement Cardiovascular: No edema, Regular rate/rhythm Gastrointestinal: Non-distended, NT Musculoskeletal: No clubbing, No contractures Integumentary: No rashes, No cyanosis Blood work reviewed in the chart. Imagings Data: EXAM DESCRIPTION: CT - Abdomen Pelvis Wo Contrast - 07/09/2021 6:39 am CLINICAL HISTORY: The patient is 76 years old and is Male; Abdominal pain, acute, nonlocalized TECHNIQUE: Axial computed tomography images of the abdomen and pelvis without intravenous contrast. Sagittal and coronal reformatted images were created and reviewed. This CT exam was performed using one or more of the following dose reduction techniques: automated exposure control, adjustment of the mA and/or kV according to patient size, and/or use of iterative reconstruction technique. COMPARISON: CT abdomen pelvis June 28, 2021. FINDINGS: Lung bases: Unremarkable. No mass. No consolidation. Pleural space: Right pleural effusion again noted, slightly decreased compared with the prior exam. Heart: No cardiomegaly. Moderate coronary artery calcifications. Mediastinum: Moderately sized hiatal hernia containing stomach, fat and ascites. ABDOMEN: Liver: Small nodular liver suggesting hepatic cirrhosis, unchanged. Gallbladder and bile ducts: Cholelithiasis. No ductal dilation. Pancreas: Fatty infiltration of the pancreas. No ductal dilation. Spleen: Splenomegaly, unchanged. Adrenals: Unremarkable. No mass. Kidneys and ureters: Unremarkable. No obstructing stones. No hydronephrosis. Stomach and bowel: The colon is not well distended and there may be colon wall thickening. No small bowel dilatation or obstruction. PELVIS: Appendix: No findings to suggest acute appendicitis. Bladder: Unremarkable. No stones. Reproductive: Unremarkable as visualized. ABDOMEN and PELVIS: Intraperitoneal space: Moderate ascites, stable to slightly decreased compared with the prior exam. No free air. Bones/joints: Sternal closure wires. Prior lumbar surgery with posterior fusion hardware. Multilevel degenerative changes in the lower thoracic spine. No acute fracture. No dislocation. Soft tissues: Right scrotal hernia again noted containing ascites. Vasculature: Moderate atherosclerotic calcification. No abdominal aortic aneurysm. Lymph nodes: No pathologically enlarged lymph nodes. IMPRESSION: 1. Moderate ascites, stable to slightly decreased compared with the prior exam. 2. The colon is not well distended and there may be colon wall thickening. This may be secondary to mild colitis or wall thickening from hypoproteinemia. 3. Right scrotal hernia again noted containing ascites. 4. Cholelithiasis. 5. Small nodular liver suggesting hepatic cirrhosis, unchanged. 6. Splenomegaly, unchanged. 7. Right pleural effusion again noted, slightly decreased compared with the prior exam. 8. Moderately sized hiatal hernia containing stomach, fat and ascites. 9. Additional non-emergent findings as above. Conclusions/Impression: RACHEL in the setting of hypotension CKD III -No NSAIDs -Agree with IV Albumin Hyponatremia -Encourage nutrition Hyperkalemia -Low potassium diet Acidosis -Monitor level HypoPO4 -Encourage nutrition -Replete PO4 prn HTN with CKD complicated by hypotension -Change Coreg to Metoprolol due to hypotension -Agree with IV Albumin LE Edema -Hold diuretics at this time DM II with CKD -RISS Moderate malnutrition -Encourage nutrition Anemia in chronic illness -Monitor H&H Alcoholic cirrhosis with ascites Hepatic encephalopathy -Continue Lactulose Case reviewed with Dr. Martin
[2021-07-12] MEDS: METOPROLOL TAR 25 MG TAB PO SCH (21:00)
[2021-07-12] MEDS ORDERED: hydrOXYzine HCL 25 MG TAB PO SCH (21:00)
[2021-07-12] MEDS ORDERED: HYDROCODONE/APAP 5/325 MG TAB PO SCH (21:00)
[2021-07-12] MEDS: hydrOXYzine HCL 25 MG TAB PO SCH (21:23)
--- NOTE | 2021-07-13 05:36 | PN ---
Date of Progress Note: 07/12/2021 The patient seems somewhat more alert today. However, the Atarax and the hydrocodone was held this m orning and will be utilized tonight. 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 His vital signs romero ve improved after being bolused x2. However, chemistries and CBC was still not good. Discussed with as far as the albumin, we will give him 25 now and check level in the morning. As fa r as Dr. Andre is concerned, the possibility of holding off for a day or two on his paracentesis is okay. Apparently, he is not having any abdominal discomfort and his examination reveals some distent ion, but there is not nearly as much as he has in the past weeks where he has required more than 5000 removed. He is scheduled for a paracentesis on Saturday morning in [place]. I will try and discuss h is status with the liver specialist in [place], as his INR and platelet counts are definitely abnorma l. With the additional problem of osteo, the surgeon felt that conservative treatment would be appro priate at this time as it is dry gangrene. We will continue to monitor his metabolic status and depe nding on stabilization may be able to be discharge a couple days over the weekend prior to having ano ther paracentesis as mentioned. We will discuss with the economic research assistant in [place] tomorrow. HR/MODL Voice ID: [id number] Report ID: [id number]
[2021-07-13 06:12] LABS: Absolute Lymphocytes (CBC) 0.6 K/uL (0.7-4.9); Hematocrit 22.8 % (39.6-49.0); Lymphocytes % 26.7 % (15.3-44.8); MPV 9.9 fL (7.6-11.3); RBC Red Blood Cell Count 2.36 M/uL (4.33-5.43)
[2021-07-13 06:31] LABS: Albumin 2.4 g/dL (3.4-5.0); Bilirubin Total 1.7 mg/dL (0.2-1.0); Magnesium 1.8 mg/dL (1.8-2.4); Potassium 4.7 mmol/L (3.5-5.1); Protein, Total 6.1 g/dL (6.4-8.2); Uric Acid 9.7 mg/dL (3.5-7.2)
[2021-07-13 07:13] LABS: White Blood Cell Scan OK (OK)
[2021-07-13 07:14] LABS: Blood Morphology Comment NOTED (NOT SEEN)
[2021-07-13 07:19] LABS: Platelet Estimate DECR
[2021-07-13] MEDS: GLUCERNA SHAKE 237 ML CAN PO SCH (09:00)
[2021-07-13] MEDS: THIAMINE HCL 100 MG TABLET PO SCH (09:00)
[2021-07-13] MEDS: LACTULOSE 20 GM/30 ML UCUP PO SCH (09:00)
[2021-07-13] MEDS ORDERED: MAGNESIUM SULFATE 1 gm IVPB 1 GM/100 ML BAG IV ONE (09:00)
[2021-07-13] MEDS: CEFTRIAXONE 1,000 MG in NA CHLORIDE 0.9% 50 ML IVPB SCH (09:53)
[2021-07-13] MEDS: ASPIRIN 81 MG CHEWABLE TABLET PO SCH (09:55)
[2021-07-13] MEDS: INSULIN -REGULAR HUMAN 50 UNIT/0.5 ML ML SQ SCH ×2 (09:55→12:37)
[2021-07-13] MEDS: SUCRALFATE 1 GM TABLET PO SCH ×3 (09:56→12:39)
[2021-07-13] MEDS: METOPROLOL TAR 25 MG TAB PO SCH (09:58)
[2021-07-13] MEDS: PANTOPRAZOLE 40MG TABLET PO SCH (09:58)
[2021-07-13] MEDS: MEDIHONEY 44 ML TOPICAL TUBE TOP SCH (09:59)
[2021-07-13] MEDS ORDERED: ALBUMIN HUMAN 25% 100 ML IV SCH (12:00)
[2021-07-13 12:53] VITALS: BP 106/54; TEMP 98.1
[2021-07-13 13:45] VITALS: O2SAT 99
[2021-07-13 13:48] VITALS: BMI 24.0
--- NOTE | 2021-07-13 17:36 | PN ---
Date of Progress Note: 07/13/2021 The patient seems somewhat more alert today. I think possibly with changes in the time of his Atarax and he has not had any hydrocodone almost 24 hours and made a significant difference. He complains of some back pain, which he has taken the hydrocodone for anywhere. However, he has minimal abdominal pain. There is still some slight to more distention a couple of days ago, however, it is not marked. However, the patient is scheduled for paracentesis in the morning. We will discuss his blood work with the liver people at [facility] prior to him going up there and will discharg e this afternoon. He continued on his cefdinir. The cellulitis of his foot is now clear and still l ooks status quo, and [facility]. He did receive the albumin and that made too difference in his blood pressure and circulation although his pancytopenia is still persistent, probably secondary to cirrhosis itself rather than possibly aggravated him comp licated by the heparin, which he has been off. We will continue his usual medicine with a change in the hydrocodone and change in time for his Atarax. Continuation of cefdinir and the dressing changes for his toe and will follow up with him in the wound clinic next week. HR/MODL Voice ID: [id number] Report ID: [id number]
--- NOTE | 2021-07-13 20:40 | P.PN ---
Date of Service: 07/13/21 Vital Signs Temp Pulse Resp BP Pulse Ox 98.1 F 70 16 106/54 L 98 07/13/21 12:00 07/13/21 12:00 07/13/21 12:00 07/13/21 12:00 07/13/21 12:00 Assessment/ Plan: Nephrology No dyspnea No chest pain Feeling better today No acute events overnight Vitals, medications, blood work and imaging reviewed in the chart. General: In no apparent distress, Oriented x3, Cooperative HEENT: Atraumatic Neck: Supple Respiratory: Normal air movement Cardiovascular: No edema, Regular rate/rhythm Gastrointestinal: Non-distended, NT Musculoskeletal: No clubbing, No contractures Integumentary: No rashes, No cyanosis Blood work reviewed in the chart. Imagings Data: EXAM DESCRIPTION: CT - Abdomen Pelvis Wo Contrast - 07/09/2021 6:39 am CLINICAL HISTORY: The patient is 76 years old and is Male; Abdominal pain, acute, nonlocalized TECHNIQUE: Axial computed tomography images of the abdomen and pelvis without intravenous contrast. Sagittal and coronal reformatted images were created and reviewed. This CT exam was performed using one or more of the following dose reduction techniques: automated exposure control, adjustment of the mA and/or kV according to patient size, and/or use of iterative reconstruction technique. COMPARISON: CT abdomen pelvis June 28, 2021. FINDINGS: Lung bases: Unremarkable. No mass. No consolidation. Pleural space: Right pleural effusion again noted, slightly decreased compared with the prior exam. Heart: No cardiomegaly. Moderate coronary artery calcifications. Mediastinum: Moderately sized hiatal hernia containing stomach, fat and ascites. ABDOMEN: Liver: Small nodular liver suggesting hepatic cirrhosis, unchanged. Gallbladder and bile ducts: Cholelithiasis. No ductal dilation. Pancreas: Fatty infiltration of the pancreas. No ductal dilation. Spleen: Splenomegaly, unchanged. Adrenals: Unremarkable. No mass. Kidneys and ureters: Unremarkable. No obstructing stones. No hydronephrosis. Stomach and bowel: The colon is not well distended and there may be colon wall thickening. No small bowel dilatation or obstruction. PELVIS: Appendix: No findings to suggest acute appendicitis. Bladder: Unremarkable. No stones. Reproductive: Unremarkable as visualized. ABDOMEN and PELVIS: Intraperitoneal space: Moderate ascites, stable to slightly decreased compared with the prior exam. No free air. Bones/joints: Sternal closure wires. Prior lumbar surgery with posterior fusion hardware. Multilevel degenerative changes in the lower thoracic spine. No acute fracture. No dislocation. Soft tissues: Right scrotal hernia again noted containing ascites. Vasculature: Moderate atherosclerotic calcification. No abdominal aortic aneurysm. Lymph nodes: No pathologically enlarged lymph nodes. IMPRESSION: 1. Moderate ascites, stable to slightly decreased compared with the prior exam. 2. The colon is not well distended and there may be colon wall thickening. This may be secondary to mild colitis or wall thickening from hypoproteinemia. 3. Right scrotal hernia again noted containing ascites. 4. Cholelithiasis. 5. Small nodular liver suggesting hepatic cirrhosis, unchanged. 6. Splenomegaly, unchanged. 7. Right pleural effusion again noted, slightly decreased compared with the prior exam. 8. Moderately sized hiatal hernia containing stomach, fat and ascites. 9. Additional non-emergent findings as above. 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 Martin
== END 2021-07-13 13:13 | disposition home or self-care (01) | DRG 683 ==
LOC: ER 04:19 → ERHOLD 08:58 → 2ND 17:30
PROVIDERS: ADMIT Internal Medicine; ATTEND Family Medicine
DX: N17.9 Acute kidney failure, unspecified (principal); E44.0 Moderate protein-calorie malnutrition; F05 Delirium due to known physiological condition; E11.52 Type 2 diabetes mellitus with diabetic peripheral angiopathy with gangrene; I96 Gangrene, not elsewhere classified; M86.171 Other acute osteomyelitis, right ankle and foot; L03.115 Cellulitis of right lower limb; D61.818 Other pancytopenia; E87.2 Acidosis; E87.1 Hypo-osmolality and hyponatremia; K52.9 Noninfective gastroenteritis and colitis, unspecified; E87.5 Hyperkalemia; K70.30 Alcoholic cirrhosis of liver without ascites; E11.22 Type 2 diabetes mellitus with diabetic chronic kidney disease; K72.90 Hepatic failure, unspecified without coma; I95.9 Hypotension, unspecified; I12.9 Hypertensive chronic kidney disease with stage 1 through stage 4 chronic kidney disease, or unspecified chronic kidney disease; N18.30 Chronic kidney disease, stage 3 unspecified; E11.69 Type 2 diabetes mellitus with other specified complication; K44.9 Diaphragmatic hernia without obstruction or gangrene; K70.31 Alcoholic cirrhosis of liver with ascites; K40.90 Unilateral inguinal hernia, without obstruction or gangrene, not specified as recurrent; K80.20 Calculus of gallbladder without cholecystitis without obstruction; I25.10 Atherosclerotic heart disease of native coronary artery without angina pectoris; R16.1 Splenomegaly, not elsewhere classified; E83.39 Other disorders of phosphorus metabolism; D63.8 Anemia in other chronic diseases classified elsewhere; T43.595A Adverse effect of other antipsychotics and neuroleptics, initial encounter; T40.2X5A Adverse effect of other opioids, initial encounter; Z20.822 Contact with and (suspected) exposure to COVID-19; Z95.1 Presence of aortocoronary bypass graft; Z68.24 Body mass index [BMI] 24.0-24.9, adult
CPT/HCPCS: 0240U; 36415; 74176; 80048; 80053; 80320; 82010; 82140; 82805; 82947; 83690; 83735; 84100; 84484; 84550; 85025; 85610; 85652; 85730; 93005; 96374; 96375; 99285; J1630; J1644; J1815; J2270; J2405; J3475; J3490; J7030; J7050; P9047